=== PATIENT | male | born 1950 | race Caucasian/White ===

== ENCOUNTER 2019-04-27 13:04 | Outpatient (CLI) | payer MEDICARE, SELFPAY ==
[2019-04-27 13:55] LABS: Albumin Level 2.6 g/dL (3.5-5.1); Blood Urea Nitrogen 50 mg/dL (9-20); Carbon Dioxide 18 mmol/L (22-30); Chloride 110 mmol/L (98-107); Estimated Glomerular Filt Rate 17; Glucose 84 mg/dL (75-110); Phosphorus 5.2 mg/dL (2.5-4.5); Potassium 4.9 mmol/L (3.4-5.0); Sodium 139 mmol/L (137-145)
[2019-04-27 14:06] LABS: Parathyroid Intact 180.4 pg/mL (7.5-53.5)
[2019-04-27 14:34] LABS: Vitamin D 25 Hydroxy < 12.8 ng/mL
[2019-04-27 15:43] LABS: Total Protein Urine Random 14 mg/dL
[2019-04-27 15:45] LABS: Creatinine Urine 90.5 mg/dL
== END 2019-04-27 13:05 | disposition home or self-care (01) ==
LOC: ANHLAB 13:08
PROVIDERS: PCP Internal Medicine Nephrology; Visit Provider Internal Medicine Nephrology
DX: N18.4 Chronic kidney disease, stage 4 (severe) (principal); E11.29 Type 2 diabetes mellitus with other diabetic kidney complication; K74.69 Other cirrhosis of liver
CPT/HCPCS: 36415; 80069; 82306; 82570; 83970; 84156

== ENCOUNTER 2019-07-12 09:28 | Outpatient (RCR) | payer MEDICARE, SELFPAY ==
[2019-05-26 10:28] LABS: Mean Platelet Volume 8.7 fl (7.4-10.4); Platelet Count Result 136 k/mm3 (150-375)
[2019-05-26 10:39] LABS: INR 1.1; Prothrombin Time 14.3 Seconds (11.1-14.7)
[2019-07-05 09:12] LABS: Mean Platelet Volume 8.8 fl (7.4-10.4); Platelet Count Result 151 k/mm3 (150-375)
[2019-07-05 09:22] LABS: INR 1.1
--- NOTE | ~2019-07-12 | US_ITS ---
EXAMINATION: US paracentesis abd w/image DATE: 07/05/2019 10:19 INDICATION: Ascites. TECHNIQUE: The procedure and its risks and benefits were discussed with the patient. Potential risks discussed included bleeding and infection. The skin was prepped and draped in sterile fashion. 1% lid ocaine was used for local anesthesia. Under ultrasound guidance, a 5 Fr catheter with trochar was adv anced into the ascites in the left lower quadrant. Fluid was aspirated into vacuum bottles. The laura ter was removed, and a dressing was applied. There were no immediate complications. FINDINGS: Ultrasound images demonstrate ascites and the catheter within the fluid. IMPRESSION: 1. Successful ultrasound-guided paracentesis yielding 5000 mL of cloudy brownish fluid. Reviewed, dictated and finalized at location A. IMPRESSION: 1. Successful ultrasound-guided paracentesis yielding 5000 mL of cloudy browni sh fluid.
--- NOTE | ~2019-07-12 | US_ITS ---
EXAMINATION: US paracentesis abd w/image DATE: 04/14/2019 14:20 INDICATION: Ascites. TECHNIQUE: The procedure and its risks, benefits, and alternatives were discussed with the patient. P otential risks discussed included bleeding and infection. The skin was prepped and draped in sterile fashion. 1% lidocaine was used for local anesthesia. Under ultrasound guidance, a 5 Fr catheter with trochar was advanced into the ascites in the left lower quadrant. Fluid was aspirated. The catheter w as removed, and a dressing was applied. There were no immediate complications. FINDINGS: Ultrasound images demonstrate ascites and the catheter within the fluid. IMPRESSION: 1. Successful ultrasound-guided paracentesis yielding 5000 mL of robb-colored fluid. Reviewed, dictated and finalized at location A. ETING AUTOMATION ANALYST
--- NOTE | ~2019-07-12 | US_ITS ---
EXAMINATION: US paracentesis abd w/image DATE: 07/12/2019 10:32 INDICATION: Ascites. TECHNIQUE: The procedure and its risks, benefits, and alternatives were discussed with the patient. P otential risks discussed included bleeding and infection. The skin was prepped and draped in sterile fashion. 1% lidocaine was used for local anesthesia. Under ultrasound guidance, a 5 Fr catheter with trochar was advanced into the ascites in the left lower quadrant. Fluid was aspirated. The catheter w as removed, and a dressing was applied. There were no immediate complications. FINDINGS: Ultrasound images demonstrate ascites and the catheter within the fluid. IMPRESSION: 1. Successful ultrasound-guided paracentesis yielding 5000 mL of cloudy, brown fluid. Reviewed, dictated and finalized at location A.
--- NOTE | ~2019-07-12 | US_ITS ---
EXAMINATION: US paracentesis abd w/image DATE: 04/22/2019 10:43 INDICATION: Ascites. TECHNIQUE: The skin was prepped and draped in sterile fashion. 1% lidocaine was used for local anesth esia. Under ultrasound guidance, a 5 Fr catheter with trochar was advanced into the ascites in the le ft lower quadrant. Fluid was aspirated. The catheter was removed, and a dressing was applied. There w ere no immediate complications. FINDINGS: Ultrasound images demonstrate ascites and the catheter within the fluid. IMPRESSION: 1. Successful ultrasound-guided paracentesis yielding 5000 mL of clear, yellow fluid. Reviewed, dictated and finalized at location A. ST'S MANAGER
--- NOTE | ~2019-07-12 | US_ITS ---
EXAMINATION: US paracentesis abd w/image DATE: 04/30/2019 11:18 INDICATION: Cirrhosis of the liver and ascites. TECHNIQUE: The procedure and its risks and benefits were discussed with the patient. Potential risks discussed included bleeding and infection. The skin was prepped and draped in sterile fashion. 1% lid ocaine was used for local anesthesia. Under ultrasound guidance, a 5 Fr catheter with trochar was adv anced into the ascites in the left lower quadrant. Fluid was aspirated into vacuum bottles. The laura ter was removed, and a dressing was applied. There were no immediate complications. FINDINGS: Ultrasound images demonstrate ascites and the catheter within the fluid. IMPRESSION: 1. Successful ultrasound-guided paracentesis yielding 5000 mL of clear yellowish fluid. Reviewed, dictated and finalized at location A. TY DIRECTOR WELFARE IMPRESSION: 1. Successful ultrasound-guided paracentesis yielding 5000 mL of clear yellowi sh fluid.
--- NOTE | ~2019-07-12 | US_ITS ---
EXAMINATION: US paracentesis abd w/image DATE: 05/14/2019 13:40 INDICATION: Ascites. TECHNIQUE: The procedure and its risks, benefits, and alternatives were discussed with the patient. P otential risks discussed included bleeding and infection. The skin was prepped and draped in sterile fashion. 1% lidocaine was used for local anesthesia. Under ultrasound guidance, a 5 Fr catheter with trochar was advanced into the ascites in the left lower quadrant. Fluid was aspirated. The catheter w as removed, and a dressing was applied. There were no immediate complications. FINDINGS: Ultrasound images demonstrate ascites and the catheter within the fluid. IMPRESSION: 1. Successful ultrasound-guided paracentesis yielding 5000 mL of clear, robb-colored fluid. Reviewed, dictated and finalized at location A. ILLMENT ASSOCIATE IMPRESSION: 1. Successful ultrasound-guided paracentesis yielding 5000 mL of clear, robb- colored fluid.
--- NOTE | ~2019-07-12 | US_ITS ---
EXAMINATION: US paracentesis abd w/image DATE: 05/26/2019 11:39 INDICATION: Ascites. TECHNIQUE: The procedure and its risks, benefits, and alternatives were discussed with the patient. P otential risks discussed included bleeding and infection. The skin was prepped and draped in sterile fashion. 1% lidocaine was used for local anesthesia. Under ultrasound guidance, a 5 Fr catheter with trochar was advanced into the ascites in the left lower quadrant. Fluid was aspirated. The catheter w as removed, and a dressing was applied. There were no immediate complications. FINDINGS: Ultrasound images demonstrate ascites and the catheter within the fluid. IMPRESSION: 1. Successful ultrasound-guided paracentesis yielding 5000 mL of clear, robb-colored fluid. Reviewed, dictated and finalized at location A. IMPRESSION: 1. Successful ultrasound-guided paracentesis yielding 5000 mL of clear, robb- colored fluid.
--- NOTE | ~2019-07-12 | US_ITS ---
EXAMINATION: US paracentesis abd w/image DATE: 06/14/2019 10:43 INDICATION: Ascites. TECHNIQUE: The procedure and its risks and benefits were discussed with the patient. Potential risks discussed included bleeding and infection. The skin was prepped and draped in sterile fashion. 1% lid ocaine was used for local anesthesia. Under ultrasound guidance, a 5 Fr catheter with trochar was adv anced into the ascites in the left lower quadrant. Fluid was aspirated into vacuum bottles. The laura ter was removed, and a dressing was applied. There were no immediate complications. FINDINGS: Ultrasound images demonstrate ascites and the catheter within the fluid. IMPRESSION: 1. Successful ultrasound-guided paracentesis yielding 5000 mL of reddish-brown fluid. Reviewed, dictated and finalized at location A.
--- NOTE | ~2019-07-12 | US_ITS ---
EXAMINATION: US paracentesis abd w/image DATE: 06/07/2019 10:50 INDICATION: Ascites. TECHNIQUE: The procedure and its risks and benefits were discussed with the patient. Potential risks discussed included bleeding and infection. The skin was prepped and draped in sterile fashion. 1% lid ocaine was used for local anesthesia. Under ultrasound guidance, a 5 Fr catheter with trochar was adv anced into the ascites in the left lower quadrant. Fluid was aspirated into vacuum bottles. The laura ter was removed, and a dressing was applied. There were no immediate complications. FINDINGS: Ultrasound images demonstrate ascites and the catheter within the fluid. IMPRESSION: 1. Successful ultrasound-guided paracentesis yielding 4650 mL of cloudy pinkish fluid. Reviewed, dictated and finalized at location A. IMPRESSION: 1. Successful ultrasound-guided paracentesis yielding 4650 mL of cloudy pinkis h fluid.
--- NOTE | ~2019-07-12 | US_ITS ---
EXAMINATION: US paracentesis abd w/image DATE: 05/05/2019 15:00 INDICATION: Ascites. TECHNIQUE: The procedure and its risks and benefits were discussed with the patient. Potential risks discussed included bleeding and infection. The skin was prepped and draped in sterile fashion. 1% lid ocaine was used for local anesthesia. Under ultrasound guidance, a 5 Fr catheter with trochar was adv anced into the ascites in the right lower quadrant. Fluid was aspirated into vacuum bottles. The cath eter was removed, and a dressing was applied. There were no immediate complications. FINDINGS: Ultrasound images demonstrate ascites and the catheter within the fluid. IMPRESSION: 1. Successful ultrasound-guided paracentesis yielding 2000 mL of cloudy reddish-brown fluid. Reviewed, dictated and finalized at location A. RUMENTATION AND CONTROLS TECHNICIAN IMPRESSION: 1. Successful ultrasound-guided paracentesis yielding 2000 mL of cloudy reddis h-brown fluid.
--- NOTE | ~2019-07-12 | US_ITS ---
EXAMINATION: US paracentesis abd w/image DATE: 05/31/2019 10:48 INDICATION: Ascites. TECHNIQUE: The procedure and its risks and benefits were discussed with the patient. Potential risks discussed included bleeding and infection. The skin was prepped and draped in sterile fashion. 1% lid ocaine was used for local anesthesia. Under ultrasound guidance, a 5 Fr catheter with trochar was adv anced into the ascites in the left lower quadrant. Fluid was aspirated into vacuum bottles. The laura ter was removed, and a dressing was applied. There were no immediate complications. FINDINGS: Ultrasound images demonstrate ascites and the catheter within the fluid. IMPRESSION: 1. Successful ultrasound-guided paracentesis yielding 5000 mL of cloudy brownish colored fluid. Reviewed, dictated and finalized at location A. IMPRESSION: 1. Successful ultrasound-guided paracentesis yielding 5000 mL of cloudy browni sh colored fluid.
--- NOTE | ~2019-07-12 | US_ITS ---
EXAMINATION: US paracentesis abd w/image DATE: 06/28/2019 09:34 INDICATION: Ascites. TECHNIQUE: The procedure and its risks, benefits, and alternatives were discussed with the patient. P otential risks discussed included bleeding and infection. The skin was prepped and draped in sterile fashion. 1% lidocaine was used for local anesthesia. Under ultrasound guidance, a 5 Fr catheter with trochar was advanced into the ascites in the left lower quadrant. Fluid was aspirated. The catheter w as removed, and a dressing was applied. There were no immediate complications. FINDINGS: Ultrasound images demonstrate ascites and the catheter within the fluid. IMPRESSION: 1. Successful ultrasound-guided paracentesis yielding 5000 mL of robb-colored fluid. Reviewed, dictated and finalized at location A.
--- NOTE | ~2019-07-12 | US_ITS ---
EXAMINATION: US paracentesis abd w/image DATE: 06/21/2019 10:00 INDICATION: Ascites. TECHNIQUE: The procedure and its risks, benefits, and alternatives were discussed with the patient. P otential risks discussed included bleeding and infection. The skin was prepped and draped in sterile fashion. 1% lidocaine was used for local anesthesia. Under ultrasound guidance, a 5 Fr catheter with trochar was advanced into the ascites in the left lower quadrant. Fluid was aspirated. The catheter w as removed, and a dressing was applied. There were no immediate complications. FINDINGS: Ultrasound images demonstrate ascites and the catheter within the fluid. IMPRESSION: 1. Successful ultrasound-guided paracentesis yielding 5000 mL of red-brown, cloudy fluid. Reviewed, dictated and finalized at location A. IMPRESSION: 1. Successful ultrasound-guided paracentesis yielding 5000 mL of red-brown, cl oudy fluid.
== END 2019-07-13 23:59 | disposition home or self-care (01) ==
LOC: ANHIMG 09:28
PROVIDERS: PCP Internal Medicine Nephrology; Visit Provider Internal Medicine Nephrology
DX: R18.8 Other ascites (principal); K74.69 Other cirrhosis of liver
CPT/HCPCS: 36415; 49083; 85049; 85610

== ENCOUNTER 2019-09-05 19:29 | Inpatient (IN) | payer MEDICARE, SELFPAY ==
--- NOTE | ~2019-09-05 | XR_ITS ---
EXAMINATION: XR chest 1V portable DATE: 09/05/2019 20:01 INDICATION: Weakness. Pulmonary edema. TECHNIQUE: frontal view of the chest was obtained. COMPARISON: Chest radiograph dated 10/02/2018 FINDINGS: Chronic elevation of the right hemidiaphragm. Persistent opacities in the right lower lung zone. Left lung remains clear. No pulmonary edema, pneumothorax or pleural effusion. The cardiomediastinal silh ouette is normal. Median Median sternotomy wires and mediastinal surgical clips are seen, likely from prior coronary artery bypass grafting. There also appears to be a closure device projecting over th e region of the left atrial appendage. Correlate with surgical history. IMPRESSION: 1. Chronic elevation of the right hemidiaphragm with persistent opacities in the right lower lung zon e which could represent atelectasis or pneumonia. Reviewed, dictated and finalized at location A. IMPRESSION: 1. Chronic elevation of the right hemidiaphragm with persistent opacities in th e right lower lung zone which could represent atelectasis or pneumonia.
--- NOTE | ~2019-09-05 | US_ITS ---
EXAMINATION: US paracentesis abd w/image DATE: 09/06/2019 11:52 INDICATION: Ascites. TECHNIQUE: The procedure and its risks and benefits were discussed with the patient. Potential risks discussed included bleeding and infection. The skin was prepped and draped in sterile fashion. 1% lid ocaine was used for local anesthesia. Under ultrasound guidance, a 5 Fr catheter with trochar was adv anced into the ascites in the right lower quadrant. Fluid was aspirated into vacuum bottles. The cath eter was removed, and a dressing was applied. There were no immediate complications. FINDINGS: Ultrasound images demonstrate ascites and the catheter within the fluid. IMPRESSION: 1. Successful ultrasound-guided paracentesis yielding 5000 mL of cloudy brownish-fluid fluid. Reviewed, dictated and finalized at location A. IMPRESSION: 1. Successful ultrasound-guided paracentesis yielding 5000 mL of cloudy browni sh-fluid fluid.
--- NOTE | ~2019-09-05 | US_ITS ---
EXAMINATION: US paracentesis abd w/image DATE: 09/13/2019 12:34 INDICATION: Ascites. TECHNIQUE: The procedure and its risks and benefits were discussed with the patient. Potential risks discussed included bleeding and infection. The skin was prepped and draped in sterile fashion. 1% lid ocaine was used for local anesthesia. Under ultrasound guidance, a 5 Fr catheter with trochar was adv anced into the ascites in the right lower quadrant. Fluid was aspirated into vacuum bottles. The cath eter was removed, and a dressing was applied. There were no immediate complications. FINDINGS: Ultrasound images demonstrate ascites and the catheter within the fluid. IMPRESSION: 1. Successful ultrasound-guided paracentesis yielding 1000 mL of cloudy yellow fluid. Reviewed, dictated and finalized at location A.
--- NOTE | ~2019-09-05 | XR_ITS ---
XR abdomen/kub 1V 09/13/2019 15:02 Indication: Left UPJ stone Procedure: KUB Comparison: No prior studies for comparison. Findings: Bowel gas pattern is nonobstructive. There is a left internal ureteral stent in expected po sition. There are extensive vascular calcifications of the abdomen and pelvis. No definite renal/uret eral stones are identified. Moderate lumbar spondylosis. Impression: 1: No acute abdominal abnormality. Reviewed, dictated and finalized at location A. Impression: 1: No acute abdominal abnormality.
--- NOTE | ~2019-09-05 | CT_ITS ---
EXAMINATION: CT abdomen pelvis wo con DATE: 09/05/2019 20:34 INDICATION: Left lower abdominal pain TECHNIQUE: Computed tomography (CT) of the abdomen and pelvis was performed with 100 mL Omnipaque-350 intravenous contrast. Automated exposure control and iterative reconstruction technique were employe d. The dose-length product was 1136.79 mGy-cm. COMPARISON: 07/28/2016 FINDINGS: Bibasilar atelectasis, right greater than left. Cardiomegaly. Atherosclerotic coronary artery calcifi cations with change of prior median sternotomy and likely coronary artery bypass grafting. There is a lso suggestive coronary artery stenting. There is a closure device at the left atrial appendage. Decr eased attenuation of the blood pool relative to the myocardium consistent with anemia. No pericardial effusion. Trace bilateral pleural effusions. Small cirrhotic liver with nodular surface contour. There are a few fluid attenuation hepatic cysts t he largest measuring 2.2 cm. Several small calcified gallstones in the dependent aspect of the normal -appearing gallbladder. Multiple splenic calcified lesions consistent with old granulomatous disease. Pancreas and bilateral adrenal glands are normal. Mild bilateral renal atrophy. 2-3 mm stone in the proximal left ureter resulting in mild left hydronephrosis. Multiple additional calcifications at the bilateral renal navin which appear predominantly atherosclerotic. No right-sided hydronephrosis. Larg e amount of ascites scattered throughout the abdomen and pelvis. No bowel obstruction or abnormal bow el wall thickening. There are couple diverticula along the distal descending colon without adjacent i nflammatory change to suggest diverticulitis. Bladder is normal. Bilateral fat-containing inguinal he rnias. Penile prosthesis with reservoir in the anterior left pelvis. There is extensive calcified ath erosclerosis of the aorta and many of the other arteries. No significant interval change in mild like ly reactive upper abdominal] peroneal lymphadenopathy and bilateral inguinal lymphadenopathy. Severe lumbar spondylosis. IMPRESSION: 1. Obstructing 2-3 mm proximal left ureteral stone with mild left hydronephrosis. 2. Large amount of ascites in the abdomen and pelvis likely related to cirrhosis. 3. Cardiomegaly with coronary artery disease and postoperative changes of likely prior coronary arter y bypass grafting and left atrial appendage closure device. 4. Cholelithiasis. Reviewed, dictated and finalized at location A. IMPRESSION: 1. Obstructing 2-3 mm proximal left ureteral stone with mild left hydronephrosi s. 2. Large amount of ascites in the abdomen and pelvis likely related to cirrhosi s. 3. Cardiomegaly with coronary artery disease and postoperative changes of likel y prior coronary artery bypass grafting and left atrial appendage closure devic e. 4. Cholelithiasis.
--- NOTE | ~2019-09-05 | XR_ITS ---
EXAMINATION: XR retrograde pyelo w/stent LT INDICATION: Left internal ureteral stent placement and retrograde pyelogram. TECHNIQUE: 43 intraoperative fluoroscopic images are submitted for review. Total fluoroscopic time is 19.5 seconds. The DAP is [id number] mGym2. COMPARISON: None available FINDINGS: Fluoroscopic images demonstrate retrograde opacification of a normal caliber left ureter wi th mild hydronephrosis. The internal ureteral stent is placed in expected position. IMPRESSION: 1. Left internal ureteral stent in expected position. Please refer to procedure note for full details . Reviewed, dictated and finalized at location A. IMPRESSION: 1. Left internal ureteral stent in expected position. Please refer to procedure note for full details.
--- NOTE | ~2019-09-05 | US_ITS ---
EXAMINATION: US renal BI EXAM DATE: 09/06/2019 11:48 INDICATION: Acute on chronic renal failure. Left ureteral stone seen on 09/04 CT. TECHNIQUE: Multiple grayscale and Doppler images of the kidneys were obtained (by a technologist who performed the scan) and subsequently reviewed. Correlation is made to CT from yesterday. FINDINGS: There is bilateral renal cortical thinning. Large amount of ascites. Right kidney: There is normal contour and increased echogenicity. It measures 11.0 x 5.3 x 5.3 centi meters. There are no focal renal lesions identified. There is no hydronephrosis. Left kidney: There is normal contour and increased echogenicity. It measures 10.6 x 5.4 x 5.5 centim eters. There are no focal renal lesions identified. There is no hydronephrosis. Patient has Arredondo catheter, collapsed bladder poorly visualized. IMPRESSION: 1. Bilateral renal cortical thinning and increased cortical echogenicity, medical renal disease. 2. Large amount of ascites. 3. No hydronephrosis. Reviewed, dictated and finalized at location B. IMPRESSION: 1. Bilateral renal cortical thinning and increased cortical echogenicity, medi sang renal disease. 2. Large amount of ascites. 3. No hydronephrosis.
--- NOTE | ~2019-09-05 | US_ITS ---
EXAMINATION: US venous doppler [facility] DATE: 09/06/2019 18:42 INDICATION: Bilateral lower limb pain TECHNIQUE: Plunkett scale images without and with compression and Doppler images of the bilateral lower e xtremity veins were obtained. COMPARISON: 10/08/2018 FINDINGS: The right common femoral vein, profunda femoral vein, femoral vein, popliteal vein, peroneal trunk, p osterior tibial veins, and greater saphenous vein are patent. The left common femoral vein, profunda femoral vein, femoral vein, popliteal vein, peroneal trunk, po sterior tibial veins, and greater saphenous vein are patent. IMPRESSION: 1. Patent bilateral lower extremity veins. No evidence of deep venous thrombosis. Reviewed, dictated and finalized at location A. IMPRESSION: 1. Patent bilateral lower extremity veins. No evidence of deep venous thrombosi s.
[2019-09-05 19:30] VITALS: BP 145/53; PULSE 66; RESP 20; TEMP 36.3; O2SAT 100
--- NOTE | 2019-09-05 19:48 | ED.ABDPAIN ---
HPI - Abdominal Pain General Chief Complaint: Abdominal Pain Stated Complaint: abd pain and swelling Time Seen by Provider: 09/05/19 19:41 Source: patient Mode of arrival: ambulatory Limitations: no limitations History of Present Illness HPI narrative: This patient is a 69 year old male with history of chronic kidney disease, nonalcoholic cirrhosis, and hypertension who presents for evaluation of abdominal pain. PAtient states he developed mid left abdominal pain this morning and his pain has been constant. HE has associated nausea and dry heaving but he denies diarrhea. He had normal bowel movement today. His family states that his abdomen is distended and his legs are more swollen than usual. He is scheduled for weekly paracentesis which is scheduled for tomorrow. HE states this pain is not normal for him so he could not wait until tomorrow. He denies any urinary symptoms. MD elicited complaint: abdominal pain Related Data Home Medications Medication Instructions Recorded Confirmed albuterol sulfate 90 mcg/actuation 1 puff INHALATION Q4H PRN 05/24/19 09/06/19 aerosol inhaler amlodipine 5 mg tablet 5 mg PO DAILY 05/24/19 09/06/19 aspirin 81 mg chewable tablet 81 mg PO DAILY 05/24/19 09/06/19 hydralazine 50 mg tablet 50 mg PO TID 05/24/19 09/06/19 ipratropium 20 mcg-albuterol 100 1 puff INHALATION Q4H PRN 05/24/19 09/06/19 mcg/actuation mist for inhalation simvastatin 20 mg tablet 20 mg PO HS 05/24/19 09/06/19 bumetanide 2 mg PO HS 09/06/19 09/06/19 calcitriol 0.25 mcg PO DAILY 09/06/19 09/06/19 clopidogrel [Plavix] 75 mg PO HS 09/06/19 09/06/19 spironolactone 25 mg PO DAILY 09/06/19 09/06/19 Allergies Allergy/AdvReac Type Severity Reaction Status Date / Time codeine Allergy Unknown RASH/BLISTE Verified 09/05/19 19:33 RS Review of Systems Review of Systems: All systems reviewed & are unremarkable except as noted in HPI and below Constitutional: Constitutional: Denies chills and Denies fever(s) ENT: Denies sore throat Respiratory: Respiratory: Denies cough and Denies dyspnea Gastrointestinal: Gastrointestinal: Reports abdominal pain, Denies constipation, Denies diarrhea, Reports nausea and Reports vomiting Hematologic/Lymphatic: Comments: leg edema PMFSH Past Medical History Medical History Anemia Chronic diastolic (congestive) heart failure CKD (chronic kidney disease) stage 4, GFR 15-29 ml/min Coronary artery 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 Edema of both legs DIMITRIS (obstructive sleep apnea) Other ascites PAF (paroxysmal atrial fibrillation) Presence of Watchman left atrial appendage closure device Pulmonary hypertension Surgical History Surgical History History of penile implant History of tonsillectomy Family History Family History (Updated 09/06/19 @ 01:25 by Jenniffer Arora RN) Mother Diabetes mellitus Father Family history of malignant neoplasm Family history of lung cancer Hypertension Sibling Diabetes mellitus Social History Social History Smoking packs per day: 1 Smoking cigarettes per day: 20.0 Years smoked: 10 Smoking pack-years: 10.00 Smoking status: Former smoker Smoking end date: 03/17/75 Alcohol intake: never Substance use: never Spiritual care concerns: No Exam Const: General: alert and ill appearing Orientation/consciousness: patient oriented x3 HENMT: Head: normocephalic and atraumatic Face and sinus: face symmetric Eyes: EOM: EOMs intact bilaterally Chest: Chest palpation & inspection: normal inspection of the chest Resp: Effort & Inspection: normal respiratory effort Auscultation: clear to auscultation bilaterally Cardio: Rate: regular rate Rhythm: regular rhythm Heart sounds: no murmurs GI
[2019-09-05 19:50] LABS: Basophils Percent Auto 0.3 % (0.2-1.2); Hematocrit 24.8 % (42.0-52.0); Immature Granulocyte Absolute 0.08 K/mm3 (0.00-0.031); Lymphocytes Absolute Auto 0.18 K/mm3 (0.9-3.2); Lymphocytes Percent Auto 2.3 % (18.3-44.2); Mean Corpuscular HGB Conc 32.3 g/dl (32-36); Mean Corpuscular Hemoglobin 29.4 pg (26-34); Mean Corpuscular Volume 91.2 fl (80-100); Mean Platelet Volume 8.7 fl (7.4-10.4); Monocytes Absolute Auto 0.2 K/mm3 (0.1-0.6); Monocytes Percent Auto 2.1 % (2.6-8.5); Neutrophils Absolute Auto 7.5 K/mm3 (1.3-6.7); Neutrophils Percent Auto 94.3 % (45.5-73.1); Platelet Count Result 136 k/mm3 (150-375); Red Blood Count 2.72 M/mm3 (4.6-6.20); Red Cell Distribution Width 14.6 % (11.5-14.5)
[2019-09-05 20:00] VITALS: BP 130/80; PULSE 67; RESP 18; O2SAT 97
[2019-09-05 20:01] LABS: Alanine Aminotransferase 11 U/L (4-50); Albumin Level 2.4 g/dL (3.5-5.1); Alkaline Phosphatase 107 U/L (38-126); Aspartate Amino Transferase 21 U/L (17-59); Bilirubin,Total 0.3 mg/dL (0.2-1.3); Blood Urea Nitrogen 62 mg/dL (9-20); Calcium 7.7 mg/dL (8.4-10.2); Carbon Dioxide 14 mmol/L (22-30); Chloride 110 mmol/L (98-107); Estimated CRCL calculation 14 ml/min; Estimated Glomerular Filt Rate 10; Glucose 212 mg/dL (75-110); Lipase 38 U/L (23-300); Magnesium 2.8 mg/dL (1.6-2.3); Potassium 5.9 mmol/L (3.4-5.0); Sodium 133 mmol/L (137-145)
[2019-09-05] MEDS: DEXTROSE 50% 25 GM/50 ML SYRINGE IV PUSH (20:16)
[2019-09-05] MEDS: SODIUM BICARBONATE 8.4% 50 MEQ/50 ML VIAL IV PUSH (20:16)
[2019-09-05] MEDS: INSULIN HUMAN REGULAR (*BKC) 100 UNITS/ML 10 UNITS IV PUSH (20:17)
[2019-09-05] MEDS: ONDANSETRON INJ 4 MG/2 ML VIAL IV PUSH (20:17)
[2019-09-05] MEDS: HYDROMORPHONE HCL 1 MG/ML INJ 0.5 MG IV PUSH (20:17)
--- NOTE | 2019-09-05 20:17 | PC.NURSE ---
10 units given IVP, MAR did not take last scan, unable to edit. Given with Beau Red RN.
--- NOTE | 2019-09-05 20:22 | ECG_ITS ---
Measurements Intervals [place] Rate: 58 P: ME: 0 QRS: -68 QRSD: 113 T: 119 QT: 441 QTc: 435 Interpretive Statements ATRIAL FIBRILLATION WITH SLOW VENTRICULAR RESPONSE INCOMPLETE LEFT BUNDLE BRANCH BLOCK LOW QRS VOLTAGE IN PRECORDIAL LEADS BORDERLINE R WAVE PROGRESSION, ANTERIOR LEADS BORDERLINE ST-T WAVE ABNORMALITY- HIGH LATERAL LEADS BASELINE ARTIFACT- I, III, AVR, AVL ABNORMAL ECG Electronically Signed On 09-06-2019 6:43:03 CDT by Peter Pollack D.O.
[2019-09-05] MEDS: CALCIUM GLUC 1,000 MG/NS 50 ML 1,000 MG/50 ML BAG 100 MG IVPB (20:50)
[2019-09-05 21:04] LABS: INR 1.2; Prothrombin Time 14.8 Seconds (11.1-14.7)
[2019-09-05 21:24] VITALS: BP 119/46; PULSE 64; RESP 18; O2SAT 95
[2019-09-05 21:26] LABS: Ammonia < 9 umol/L (9-30); Lactic Acid Reflex 1.2 mmol/L (0.7-2.1)
[2019-09-05 21:47] LABS: Blood Urea Nitrogen 67 mg/dL (9-20); Calcium 7.6 mg/dL (8.4-10.2); Carbon Dioxide 16 mmol/L (22-30); Chloride 110 mmol/L (98-107); Estimated CRCL calculation 14 ml/min; Estimated Glomerular Filt Rate 11; Glucose 232 mg/dL (75-110); Potassium 5.5 mmol/L (3.4-5.0); Sodium 133 mmol/L (137-145)
[2019-09-05 21:51] LABS: Glucose Point of Care 146 (65-105)
--- NOTE | 2019-09-05 22:01 | PC.NURSE ---
Patient notified for the 3rd time we need a urine sample. Refusing cath. Will try.
--- NOTE | 2019-09-05 22:24 | PC.NURSE ---
Patient asked again for urine, states he cannot go currently and still refusing cath.
[2019-09-05] MEDS: SODIUM CHLORIDE 0.9% IV 1,000 ML 999 ML IV CONT (22:42)
[2019-09-05] MEDS: HYDROMORPHONE HCL 1 MG/ML INJ IV PUSH (22:42)
[2019-09-05] MEDS: SODIUM POLYSTYRENE SULFONONATE 15 GM/60 ML BTL PO (22:42)
[2019-09-05] MEDS: LIDOCAINE HCL 2% GEL UROJET 10 ML PKG (22:52)
[2019-09-05 23:09] VITALS: BP 137/67; PULSE 55; RESP 18; O2SAT 95
[2019-09-05 23:16] VITALS: BP 133/57; PULSE 68; RESP 20; TEMP 36.6; O2SAT 95; BMI 30.7
[2019-09-05] MEDS: PROMETHAZINE HCL 25 MG/ML AMPUL 12.5 MG IV PUSH (23:22)
[2019-09-05 23:24] LABS: Add Urine Microscopic? YES; Appearance Urine Clear (Clear); Bacteria Urine 1+ /hpf; Bilirubin Urine Negative (Negative); Blood Urine 3+ (Negative); Color Urine Yellow (Yellow); Glucose Urine UA 1+ mg/dL (Negative); Ketones Urine Negative (Negative); Leukocyte Esterase Ur Negative LEU/UL (Negative); Nitrate Urine Negative (Negative); Protein Urine Negative (Negative); RBC Urine >75 /hpf (0-2); Specific Grav Ur 1.013 (1.001-1.035); Urobilinogen Urine Negative mg/dL (<2.0); WBC Urine 0-3 /hpf
[2019-09-05 23:25] LABS: Potassium Urine Random 53.4 meq/L; Sodium Urine Random 11 meq/L
[2019-09-05 23:27] VITALS: PULSE 74
[2019-09-05 23:48] LABS: Glucose Point of Care 80 (65-105)
[2019-09-06] VITALS (28 sets, daily range): BP systolic 119–167; BP diastolic 41–74; PULSE 53–86; RESP 12–20; TEMP 35.5–36.7; O2SAT 93–100; BMI 28.4
--- NOTE | 2019-09-06 | PC.NURSE ---
This patient, Naldo Lowry, was admitted to IMU Room 202-01. Patient/family oriented to hospital policies and general routines including ID bracelet, bed and alarms, visiting hours, pain management, procedures, bathroom and other care routines, personal items, smoking policy, room service/diet, and visiting hours. Valuables list has been completed. Information on how to activate the Rapid Response Team has been discussed. Patient/Family are encouraged to report perceived risks to care and to ask questions if they do not understand what they are told or what they should do.
--- NOTE | 2019-09-06 00:05 | PM.IMHP ---
H&P: HPI History of Present Illness Chief complaint: hyperkalemia, acute on chronic renal failure, Narrative: This is a pleasant 69 year old male with known history of CKD, nonalcoholic cirrhosis, and chronic diastolic heart failure who presented to the hospital today complaining of left sided abdominal pain that started early in the morning. His abdominal pain is associated with nausea and vomiting. He reports decreased urine output. He denies any NSAID use or exposure to contrast. The patient is known to get weekly paracentesis for his chronic abdominal ascites which is scheduled for tomorrow. He denies any gross hematuria or dysuria. The patient was evaluated in the ER tonight and found to be in acute renal failure. CT abd/pelvis demonstrated obstructing 2-3 mm proximal left ureteral stone with mild left hydronephrosis. Urology has been consulted by ER provider. 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 Edema of both legs DIMITRIS (obstructive sleep apnea) Other ascites PAF (paroxysmal atrial fibrillation) Presence of Watchman left atrial appendage closure device Pulmonary hypertension Surgical History Surgical History History of penile implant History of tonsillectomy Family History Family History Mother Diabetes mellitus Father Family history of malignant neoplasm Family history of lung cancer Hypertension Sibling Diabetes mellitus Social History Social History Smoking packs per day: 1 Smoking cigarettes per day: 20.0 Years smoked: 10 Smoking pack-years: 10.00 Smoking status: Former smoker Smoking end date: 03/17/75 Alcohol intake: never Substance use: never Spiritual care concerns: No Meds Home Medications and Allergies Home Medications Medication Instructions Recorded Confirmed Type albuterol sulfate 90 mcg/actuation 1 puff INHALATION Q4H PRN 05/24/19 09/06/19 History aerosol inhaler amlodipine 5 mg tablet 5 mg PO DAILY 05/24/19 09/06/19 History aspirin 81 mg chewable tablet 81 mg PO DAILY 05/24/19 09/06/19 History hydralazine 50 mg tablet 50 mg PO TID 05/24/19 09/06/19 History ipratropium 20 mcg-albuterol 100 1 puff INHALATION Q4H PRN 05/24/19 09/06/19 History mcg/actuation mist for inhalation simvastatin 20 mg tablet 20 mg PO HS 05/24/19 09/06/19 History bumetanide 2 mg PO HS 09/06/19 09/06/19 History calcitriol 0.25 mcg PO DAILY 09/06/19 09/06/19 History clopidogrel [Plavix] 75 mg PO HS 09/06/19 09/06/19 History spironolactone 25 mg PO DAILY 09/06/19 09/06/19 History Allergies Allergy/AdvReac Type Severity Reaction Status Date / Time codeine Allergy Unknown RASH/BLISTE Verified 09/05/19 19:33 RS Vital Signs Vital Signs - 24 hr 09/05/19 19:30 09/05/19 20:00 09/05/19 21:24 Temperature 36.3 C L Pulse Rate 66 67 64 Respiratory Rate 20 18 18 Blood Pressure 145/53 H 130/80 119/46 L Pulse Oximetry 100 97 95 09/05/19 23:09 Temperature Pulse Rate 55 L Respiratory Rate 18 Blood Pressure 137/67 Pulse Oximetry 95 Exam Const: General: cooperative, no acute distress, alert, awake and ill appearing chronically Nutritional Appearance: obese Orientation/consciousness: patient oriented x3 HENMT: Head: normal to inspection General nose exam: Normal external nose present Face and sinus: normal facial exam Mouth: Yes Normal oral and palatal mucosa present and Yes oropharynx normal Eyes: Pupils: Equal, round and rachna
[2019-09-06] MEDS: SODIUM CHLORIDE 0.9% IV 1,000 ML 70 ML IV CONT (00:19)
[2019-09-06 04:06] LABS: Glucose Point of Care 97 (65-105)
[2019-09-06 04:52] LABS: Basophils Percent Auto 0.1 % (0.2-1.2); Hematocrit 24.5 % (42.0-52.0); Hemoglobin 7.9 g/dL (14.0-18.0); Immature Granulocyte Absolute 0.08 K/mm3 (0.00-0.031); Lymphocytes Absolute Auto 0.28 K/mm3 (0.9-3.2); Lymphocytes Percent Auto 3.4 % (18.3-44.2); Mean Corpuscular HGB Conc 32.2 g/dl (32-36); Mean Corpuscular Hemoglobin 29.2 pg (26-34); Mean Corpuscular Volume 90.4 fl (80-100); Mean Platelet Volume 8.9 fl (7.4-10.4); Monocytes Absolute Auto 0.5 K/mm3 (0.1-0.6); Monocytes Percent Auto 5.7 % (2.6-8.5); Neutrophils Absolute Auto 7.5 K/mm3 (1.3-6.7); Neutrophils Percent Auto 89.8 % (45.5-73.1); Platelet Count Result 147 k/mm3 (150-375); Red Blood Count 2.71 M/mm3 (4.6-6.20); Red Cell Distribution Width 14.4 % (11.5-14.5); White Blood Count 8.3 K/mm3 (4.5-10.0)
[2019-09-06] MEDS: LIDOCAINE HCL 2% GEL UROJET 10 ML PKG MUCOUS MEM ×2 (05:03→12:45)
[2019-09-06 05:06] LABS: Alanine Aminotransferase 11 U/L (4-50); Albumin Level 2.4 g/dL (3.5-5.1); Alkaline Phosphatase 85 U/L (38-126); Aspartate Amino Transferase 21 U/L (17-59); Bilirubin,Total 0.2 mg/dL (0.2-1.3); Blood Urea Nitrogen 63 mg/dL (9-20); Calcium 7.7 mg/dL (8.4-10.2); Carbon Dioxide 15 mmol/L (22-30); Chloride 111 mmol/L (98-107); Estimated CRCL calculation 12 ml/min; Estimated Glomerular Filt Rate 10; Glucose 105 mg/dL (75-110); Potassium 5.9 mmol/L (3.4-5.0); Sodium 133 mmol/L (137-145)
--- NOTE | 2019-09-06 07:26 | WPDURCON ---
Assessment and Plan Assessment and plan (1) Calculus of left ureter: Code(s): N20.1 - Calculus of ureter Status: Acute Assessment and Plan: He will be taken to the operating room today for cystoscopy and left ureteral stent placement. He understands risks of bleeding, infection, damage to the urinary tract, inability to place the stent. He understands I will unlikely be taking care of the stone at this time. (2) Hydronephrosis: Code(s): N13.30 - Unspecified hydronephrosis Status: Acute (3) Acute renal failure superimposed on stage 4 chronic kidney disease: Code(s): N17.9 - Acute kidney failure, unspecified; N18.4 - Chronic kidney disease, stage 4 (severe) Status: Acute Urology Consult Note HPI Date Seen: 09/06/19 Requesting Physician: Sammi Briceno PA-C Primary Care Provider: [employer] PHYSICIAN Consult Narrative Narrative: Naldo Lowry is a 69 year old male who is a gentleman with multiple health problems and no prior history of stones. He had acute onset of left-sided abdominal pain yesterday. This prompted a visit to the emergency room. He was diagnosed with a 2-3 mm left proximal ureteral stone with hydronephrosis. He denied any nausea, vomiting, fevers, chills, dysuria. He denies any visible blood in the urine. He also has a history of chronic renal insufficiency and has had worsening of his baseline creatinine from 3 to 5 range. He also has signs of hyperkalemia that is being treated by the medicine service. He will undergo left ureteral stent today. 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 Edema of both legs DIMITRIS (obstructive sleep apnea) Other ascites PAF (paroxysmal atrial fibrillation) Presence of Watchman left atrial appendage closure device Pulmonary hypertension Surgical History Surgical History History of penile implant History of tonsillectomy Family History Family History (Updated 09/06/19 @ 01:25 by Jenniffer Arora RN) Mother Diabetes mellitus Father Family history of malignant neoplasm Family history of lung cancer Hypertension Sibling Diabetes mellitus Social History Social History Smoking packs per day: 1 Smoking cigarettes per day: 20.0 Years smoked: 10 Smoking pack-years: 10.00 Smoking status: Former smoker Smoking end date: 03/17/75 Alcohol intake: never Substance use: never Spiritual care concerns: No Meds Home Medications and Allergies Home Medications Medication Instructions Recorded Confirmed Type albuterol sulfate 90 mcg/actuation 1 puff INHALATION Q4H PRN 05/24/19 09/06/19 History aerosol inhaler amlodipine 5 mg tablet 5 mg PO DAILY 05/24/19 09/06/19 History aspirin 81 mg chewable tablet 81 mg PO DAILY 05/24/19 09/06/19 History hydralazine 50 mg tablet 50 mg PO TID 05/24/19 09/06/19 History ipratropium 20 mcg-albuterol 100 1 puff INHALATION Q4H PRN 05/24/19 09/06/19 History mcg/actuation mist for inhalation simvastatin 20 mg tablet 20 mg PO HS 05/24/19 09/06/19 History bumetanide 2 mg PO HS 09/06/19 09/06/19 History calcitriol 0.25 mcg PO DAILY 09/06/19 09/06/19 History clopidogrel [P
[2019-09-06 07:55] LABS: Glucose Point of Care 89 (65-105)
[2019-09-06] MEDS: DEXTROSE 5%/0.9% SOD CHL 1,000 ML 70 ML IV CONT (08:35)
[2019-09-06] MEDS: DEXTROSE 50% 25 GM/50 ML SYRINGE IV PUSH ×2 (08:40→13:12)
[2019-09-06] MEDS: CALCIUM GLUC 1,000 MG/NS 50 ML 1,000 MG/50 ML BAG 300 MG IVPB (08:40)
[2019-09-06] MEDS: SODIUM BICARBONATE 8.4% 50 MEQ/50 ML VIAL IV PUSH (08:41)
[2019-09-06] MEDS: INSULIN HUMAN REGULAR (*BKC) 100 UNITS/ML 10 UNITS IV PUSH (08:53)
[2019-09-06] MEDS: PROMETHAZINE HCL 25 MG/ML AMPUL 12.5 MG IV PUSH (09:13)
[2019-09-06] MEDS: SODIUM POLYSTYRENE SULFONONATE 15 GM/60 ML BTL PO (09:18)
[2019-09-06 10:58] LABS: Potassium 5.3 mmol/L (3.4-5.0)
--- NOTE | 2019-09-06 11:46 | WPDANESEPPF ---
Anes - Initial Pre Proc Eval Procedure: Operation Date: 09/06/19 16:00 Proposed Procedures p CYSTOSCOPY,LEFT STENT PLACEMENT - Gabriel Finch MD Date/Time: 09/06/19 11:46 Surgeon: Sammi Briceno PA-C Pre Op Diagnosis: hyperkalemia, acute on chronic renal failure, Patient Data Age: 69 Gender: M Height: 1.8 m Weight: 92.6 kg Last Vital Signs Temp 36.1 C L 09/06/19 08:00 Pulse 57 L 09/06/19 10:00 Resp 14 09/06/19 08:00 BP 137/57 L 09/06/19 08:00 Pulse Ox 97 09/06/19 08:00 Allergies Allergy/AdvReac Type Severity Reaction Status Date / Time codeine Allergy Unknown RASH/BLISTE Verified 09/05/19 19:33 RS Home Medications Medication Instructions Recorded Confirmed Type albuterol sulfate 90 mcg/actuation 1 puff INHALATION Q4H PRN 05/24/19 09/06/19 History aerosol inhaler amlodipine 5 mg tablet 5 mg PO DAILY 05/24/19 09/06/19 History aspirin 81 mg chewable tablet 81 mg PO DAILY 05/24/19 09/06/19 History hydralazine 50 mg tablet 50 mg PO TID 05/24/19 09/06/19 History ipratropium 20 mcg-albuterol 100 1 puff INHALATION Q4H PRN 05/24/19 09/06/19 History mcg/actuation mist for inhalation simvastatin 20 mg tablet 20 mg PO HS 05/24/19 09/06/19 History bumetanide 2 mg PO HS 09/06/19 09/06/19 History calcitriol 0.25 mcg PO DAILY 09/06/19 09/06/19 History clopidogrel [Plavix] 75 mg PO HS 09/06/19 09/06/19 History spironolactone 25 mg PO DAILY 09/06/19 09/06/19 History Laboratory Tests 09/05/19 09/05/19 09/05/19 19:43 19:43 19:43 WBC 8.0 K/mm3 K/mm3 (4.5-10.0) RBC 2.72 M/mm3 L M/mm3 (4.6-6.20) Hgb 8.0 g/dL L g/dL (14.0-18.0) Hct 24.8 % L % (42.0-52.0) MCV 91.2 fl fl (80-100) MCH 29.4 pg pg (26-34) MCHC 32.3 g/dl g/dl (32-36) RDW 14.6 % H % (11.5-14.5) Plt Count 136 k/mm3 L k/mm3 (150-375) MPV 8.7 fl fl (7.4-10.4) Immature Gran % (Auto) 1.0 % H % (0-0.5) Neut % (Auto) 94.3 % H % (45.5-73.1) Lymph % (Auto) 2.3 % L % (18.3-44.2) [place] % (Auto) 2.1 % L % (2.6-8.5) Eos % (Auto) 0.0 % % (0-4.4) Baso % (Auto) 0.3 % % (0.2-1.2) Lymph # (Auto) 0.18 K/mm3 L K/mm3 (0.9-3.2) [place] # (Auto) 0.2 K/mm3 K/mm3 (0.1-0.6) Eos # (Auto) 0.0 K/mm3 K/mm3 (0-0.3) Baso # (Auto) 0.0 K/mm3 K/mm3 (0.0-0.1) Abs Immat Gran (auto) 0.08 K/mm3 H K/mm3 (0.00-0.031) Absolute Neuts (auto) 7.5 K/mm3 H K/mm3 (1.3-6.7) Absolute Nucleated RBC 0.0 K/mm3 K/mm3 (0.0-0.012) Nucleated RBC % 0.0 % % (0.0-0.2) PT 14.8 Seconds H Seconds (11.1-14.7) INR 1.2 APTT 32.0 SECONDS SECONDS (22.3-36.8) Sodium 133 mmol/L L mmol/L (137-145) Potassium 5.9 mmol/L H mmol/L (3.4-5.0) Chloride 110 mmol/L H mmol/L (98-107) Carbon Dioxide 14 mmol/L L mmol/L (22-30) BUN 62 mg/dL H D mg/dL (9-20) Creatinine 5.50 mg/dL H mg/dL (0.7-1.3) Estim Creat Clear Calc 14 ml/min ml/min Estimated GFR 10 L (59 - ) Glucose 212 mg/dL H mg/dL (75-110) POC Capillary Glucose Lactic Acid Calcium 7.7 mg/dL L mg/dL (8.4-10.2) Magnesium 2.8 mg/dL H mg/dL (1.6-2.3) Total Bilirubin 0.3 mg/dL mg/dL (0.2-1.3) AST 21 U/L U/L (17-59) ALT 11 U/L U/L (4-50) Alkaline Phosphatase 107 U/L U/L (38-126) Ammonia Total Protein 5.0 g/dL L g/dL (6.3-8.2) Albumin 2.4 g/dL L g/dL (3.5-5.1) Lipase 38 U/L U/L (23-300) Urine Color Urine Appearance Urine pH Ur Specific [place] Urine Protein Urine Glucose (UA) Urine Ketones Ur Blood (Man)
[2019-09-06] MEDS: SODIUM CHLORIDE 0.9% IV 500 ML 30 ML IV CONT (12:00)
[2019-09-06] MEDS: ceFAZolin 2 GM/D5W 50 ML 2 GM/50 ML BAG IVPB (12:27)
--- NOTE | 2019-09-06 12:52 | PM.PROC ---
Procedure Note - Detailed Date of procedure: 09/06/19 Pre-op diagnosis: hyperkalemia, acute on chronic renal failure, Left ureteral stone with hydronephrosis Post-op diagnosis: same Procedure performed: Cystoscopy, left retrograde pyelogram, left stent placement Description of procedure: He was correctly identified and informed consent was obtained. He is from the operating room. He was given mac anesthesia. He is prepped and draped in a sterile fashion. Time-out performed. He was given appropriate perioperative antibiotics. Ultrasound done this morning did not show very much in the way of hydronephrosis. I reviewed his CT scan it also did not show much hydronephrosis but there is a definite ureteral stone. If his creatinine has worsened during admission. I will proceed with placement of a left ureteral stent Cystoscopy was performed. This showed his penile implant was deflated. He had moderate trabeculations and a few cellules. If I did a retrograde pyelogram on the left showing left hydronephrosis which I deemed is mild. It was hard to appreciate a filling defect. I placed a guidewire into the kidney. Upon placement of the guidewire to the kidney there was a hydronephrotic drip coming from the ureter as well as the expulsion of old bloody urine. I placed a 4.8 variable length stent. Proximal coil number full kidney. Distal coil in the bladder. Arredondo catheter was replaced. He was awakened and transferred to the PACU in stable condition. Implants: 4.8 ureteral stent. Anesthesia: MAC Surgeon: Gabriel Finch MD Estimated blood loss (mL): 0 Drains: Yes (Arredondo catheter) Packing: No Pathology: none sent Complications: No immediate complications Condition: stable Disposition: PACU
[2019-09-06 13:12] LABS: Glucose Point of Care 53 (65-105)
[2019-09-06 13:12] LABS: Glucose Point of Care 54 (65-105)
--- NOTE | 2019-09-06 13:15 | SUR.PHASEI ---
1308 - accucheck 54, rechecked 53. Dr. Navarrete called and orders received.
[2019-09-06 13:39] LABS: Glucose Point of Care 82 (65-105)
[2019-09-06 14:41] LABS: Glucose Point of Care 76 (65-105)
[2019-09-06 14:58] LABS: Potassium 5.4 mmol/L (3.4-5.0)
--- NOTE | 2019-09-06 15:37 | PM.IMPN ---
Progress Note: A&P Assessment and Plan (1) Acute renal failure superimposed on stage 4 chronic kidney disease: Code(s): N17.9 - Acute kidney failure, unspecified; N18.4 - Chronic kidney disease, stage 4 (severe) Status: Acute Assessment and Plan: Cr was elevated at 5.5 and BUN 62 at admission. This is likely post-renal due to hydronephrosis and underlying CKD. Avoid nephrotoxic agents and renally dose medications. Continue to monitor renal function. Nephrology is on board and recommendations are greatly appreciated. (2) Ureteral stone with hydronephrosis: Code(s): N13.2 - Hydronephrosis with renal and ureteral calculous obstruction Status: Acute Assessment and Plan: This is likely the cause for acute on chronic renal failure. Dr. Finch with urology is on board. He underwent cystoscopy with left retrograde pyelogram and left stent placement today. Upon guidewire placement, there was hydronephrotic drip from the ureter with the expulsion of old blood urine. He has hematuria in his french at this time. Continue analgesics PRN. Appreciate urology input. Continue to monitor. (3) Hyperkalemia: Code(s): E87.5 - Hyperkalemia Status: Acute Assessment and Plan: Potassium was 5.9 at admission to the ED. This is likely secondary to acute renal failure. He was treated with treated with kayexalate, insulin and dextrose, calcium gluconate, and sodium bicarbonate in the emergency department. Repeat potassium today was 5.9 so this kayexalate, insulin and dextrose, calcium gluconate, and sodium bicarbonate were administered again today. Continue to monitor serum potassium. Continue telemetry monitoring. Nephrology is on board and input is appreciated. (4) Metabolic acidosis: Code(s): E87.2 - Acidosis Status: Acute Assessment and Plan: Secondary to acute renal failure. IV bicarb was administered today. Continue to monitor. (5) Normocytic anemia: Code(s): D64.9 - Anemia, unspecified Status: Chronic Assessment and Plan: Chronic. Hemoglobin was 8.0 and Hct 24.8. This is likely due to anemia of chronic disease. Stable on review of previous labs. Continue to monitor hemoglobin and hematocrit and transfuse PRN to maintain Hb >7. (6) Cirrhosis of liver with ascites: Qualifiers: Hepatic cirrhosis type: unspecified hepatic cirrhosis Qualified Code(s): K74.60 - Unspecified cirrhosis of liver; R18.8 - Other ascites Code(s): K74.60 - Unspecified cirrhosis of liver; R18.8 - Other ascites Status: Chronic Assessment and Plan: The patient receives weekly paracentesis. He underwent therapeutic paracentesis today which yielded 5,000cc of fluid. Random urine sodium was 11 and random urine potassium was 53.4 indicating that the patient is diuretic resistant. Add 2gm dietary sodium restriction. Continue bumex. Continue to monitor. (7) Hyperlipidemia: Qualifiers: Hyperlipidemia type: unspecified Qualified Code(s): E78.5 - Hyperlipidemia, unspecified Code(s): E78.5 - Hyperlipidemia, unspecified Status: Acute Assessment and Plan: LFTs were reviewed and are normal. Continue simvastatin. (8) Hypertension: Qualifiers: Hypertension type: essential hypertension Qualified Code(s): I10 - Essential (primary) hypertension Code(s): I10 - Essential (primary) hypertension Status: Acute Assessment and Plan: Blood pressures were reviewed and are reasonably controlled. Continue amlodipine and bumetanide. Hold spironolactone due to hyperkalemia. Subjective Date/time seen: 09/06/19 15:37 Interval history: Mr. Lowry is seen and examined at bedside in follow-up for hyperkalemia, acute on chronic renal failure, and obstructing left ureteral stone. He was on the way to his paracentesis during my first attempt at evaluation so I went back to see him after hi
[2019-09-06] MEDS: hydrALAZINE HCL 50 MG TABLET PO (16:42)
[2019-09-06] MEDS: HYDROMORPHONE HCL 1 MG/ML INJ 0.5 MG IV PUSH (16:43)
[2019-09-06 17:56] LABS: Glucose Point of Care 100 (65-105)
--- NOTE | 2019-09-06 18:47 | PM.CNNEP ---
Assessment and Plan Assessment and plan (1) RENA (acute kidney injury): Code(s): N17.9 - Acute kidney failure, unspecified Status: Acute (2) Chronic kidney disease, stage IV (severe): Code(s): N18.4 - Chronic kidney disease, stage 4 (severe) Status: Acute (3) Calculus of left ureter: Code(s): N20.1 - Calculus of ureter Status: Acute (4) Cirrhosis of liver with ascites: Qualifiers: Hepatic cirrhosis type: unspecified hepatic cirrhosis Qualified Code(s): K74.60 - Unspecified cirrhosis of liver; R18.8 - Other ascites Code(s): K74.60 - Unspecified cirrhosis of liver; R18.8 - Other ascites Status: Chronic (5) Metabolic acidosis: Code(s): E87.2 - Acidosis Status: Acute Assessment and Plan: . Additional Plan Naldo has acute kidney injury/acute renal failure on top of his baseline chronic kidney disease as evidenced by his admission labs. It is suspected that his left renal stone may be playing a role with this phenomenon but I would expected his other kidney to make up for the fact that his left kidney may be obstructive. However given his advanced kidney disease at baseline, he may not have had the reserve to adapt to this issue. There is also of course the possibility that there has been some progression of his kidney disease at baseline that has been masked by the fact that he had a left ureteral stone and mild left hydronephrosis as well. My other concern of course is that he may have a bacterial peritonitis as the paracentesis procedure note is somewhat concerning by the appearance of the peritoneal fluid that was removed. I will try to order a cell count, Gram stain, and culture of the peritoneal fluid but I am unclear if this will be able to be done. The patient's potassium level has also been elevated which I suspect is probably due to a combination of the outpatient use of spironolactone coupled with his acute kidney injury/acute renal failure and metabolic acidosis. For now, I would treat his potassium level conservatively with medical management in the hopes that as his kidney function improves, this will improve as well. I will continue follow patient with you while he remains hospitalized to make further recommendations during his hospital course. Thank you for allowing me to participate in the care this patient. History of Present Illness Reason for Consult Consult date: 09/06/19 Reason for consult: acute renal failure (on chronic kidney disease) Chief Complaint Chief complaint: hyperkalemia, acute on chronic renal failure, History of Present Illness Narrative: The patient is a 69 year old male with a past medical history as outlined below who presented to the [facility] ER with complaints of left sided abdominal pain. The abdominal pain started early yesterday morning and was associated with nausea and vomiting. He reports no fever or chills. Apparently, he also noted decrease in urine output as well. He initially thought the pain was secondary to his known/chronic ascites and had hoped he could hold out until his scheduled outpatient paracentesis today but the pain was so severe that he came to the ER instead. Work and evaluation in the ER found The patient to be hemodynamically stable but in significant discomfort. Routine blood test demonstrated significant worsening of his chronic kidney disease associated with hyperkalemia and metabolic acidosis. A CT scan of the abdomen and pelvis demonstrated obstructing 2-3 mm proximal left ureteral stone with mild left hydronephrosis. given these constellation of symptoms and lab/imaging findings, he was admitted the hospital for further evaluation and therapy. Urology was consulted by the emergency room given the evidence of obstructive uropathy. Renal consultation was requested due to his acute kidney injury on chronic kidney disease. The patient is familiar to me as I take c
[2019-09-06] MEDS: BUMETANIDE 1 MG TABLET 2 MG PO (20:28)
[2019-09-06] MEDS: CLOPIDOGREL BISULFATE 75 MG TABLET PO (20:28)
[2019-09-06] MEDS: SIMVASTATIN 20 MG TABLET PO (20:28)
[2019-09-06 23:15] LABS: Glucose Point of Care 76 (65-105)
[2019-09-07] VITALS (16 sets, daily range): BP systolic 126–132; BP diastolic 40–51; PULSE 56–74; RESP 12–20; TEMP 36.4–37; O2SAT 90–96
[2019-09-07 04:46] LABS: Basophils Percent Auto 0.1 % (0.2-1.2); Eosinophils Absolute Auto 0.2 K/mm3 (0-0.3); Eosinophils Percent Auto 1.1 % (0-4.4); Hemoglobin 7.1 g/dL (14.0-18.0); Immature Granulocyte Absolute 0.09 K/mm3 (0.00-0.031); Immature Granulocyte Percent A 0.6 % (0-0.5); Lymphocytes Absolute Auto 0.27 K/mm3 (0.9-3.2); Lymphocytes Percent Auto 1.8 % (18.3-44.2); Mean Corpuscular HGB Conc 32.3 g/dl (32-36); Mean Corpuscular Volume 89.8 fl (80-100); Mean Platelet Volume 8.9 fl (7.4-10.4); Monocytes Percent Auto 6.9 % (2.6-8.5); Neutrophils Absolute Auto 13.6 K/mm3 (1.3-6.7); Neutrophils Percent Auto 89.5 % (45.5-73.1); Platelet Count Result 126 k/mm3 (150-375); Red Blood Count 2.45 M/mm3 (4.6-6.20); Red Cell Distribution Width 14.7 % (11.5-14.5); White Blood Count 15.1 K/mm3 (4.5-10.0)
[2019-09-07 04:59] LABS: Alanine Aminotransferase 9 U/L (4-50); Alkaline Phosphatase 51 U/L (38-126); Aspartate Amino Transferase 24 U/L (17-59); Bilirubin,Total 0.3 mg/dL (0.2-1.3); Blood Urea Nitrogen 65 mg/dL (9-20); Calcium 7.1 mg/dL (8.4-10.2); Carbon Dioxide 17 mmol/L (22-30); Chloride 112 mmol/L (98-107); Estimated CRCL calculation 12 ml/min; Estimated Glomerular Filt Rate 11; Glucose 75 mg/dL (75-110); Magnesium 2.5 mg/dL (1.6-2.3); Potassium 5.9 mmol/L (3.4-5.0); Sodium 134 mmol/L (137-145)
--- NOTE | 2019-09-07 08:00 | WPDANESPN ---
Anes - Prog Note Post-Op Date/Time: 09/07/19 08:00 Cardiovascular status: normal Respiratory status: normal Airway patency: baseline Mental status: baseline Post-Op hydration status: normal Vital Signs: Last Vital Signs Temp 36.6 C 09/07/19 04:03 Pulse 68 09/07/19 05:53 Resp 20 09/07/19 04:03 BP 128/51 L 09/07/19 04:03 Pulse Ox 96 09/07/19 04:03 I/O: Intake & Output 09/06/19 09/07/19 09/07/19 23:59 07:59 15:59 Intake Total 990 100 Output Total 75 250 Balance 915 -150 Laboratory Tests 09/07/19 04:28 09/07/19 04:28 09/06/19 09/06/19 09/06/19 10:34 13:07 13:11 WBC RBC Hgb Hct MCV MCH MCHC RDW Plt Count MPV Immature Gran % (Auto) Neut % (Auto) Lymph % (Auto) Tucker % (Auto) Eos % (Auto) Baso % (Auto) Lymph # (Auto) Tucker # (Auto) Eos # (Auto) Baso # (Auto) Abs Immat Gran (auto) Absolute Neuts (auto) Absolute Nucleated RBC Nucleated RBC % Sodium Potassium 5.3 H Chloride Carbon Dioxide BUN Creatinine Estim Creat Clear Calc Estimated GFR Glucose POC Capillary Glucose 54 L* 53 L* Calcium Magnesium Total Bilirubin AST ALT Alkaline Phosphatase Total Protein Albumin 09/06/19 09/06/19 09/06/19 13:37 14:38 14:39 WBC RBC Hgb Hct MCV MCH MCHC RDW Plt Count MPV Immature Gran % (Auto) Neut % (Auto) Lymph % (Auto) Tucker % (Auto) Eos % (Auto) Baso % (Auto) Lymph # (Auto) Tucker # (Auto) Eos # (Auto) Baso # (Auto) Abs Immat Gran (auto) Absolute Neuts (auto) Absolute Nucleated RBC Nucleated RBC % Sodium Potassium 5.4 H Chloride Carbon Dioxide BUN Creatinine Estim Creat Clear Calc Estimated GFR Glucose POC Capillary Glucose 82 76 Calcium Magnesium Total Bilirubin AST ALT Alkaline Phosphatase Total Protein Albumin 09/06/19 09/06/19 09/07/19 17:53 23:13 04:28 WBC 15.1 H RBC 2.45 L Hgb 7.1 L Hct 22.0 L MCV 89.8 MCH 29.0 MCHC 32.3 RDW 14.7 H Plt Count 126 L MPV 8.9 Immature Gran % (Auto) 0.6 H Neut % (Auto) 89.5 H Lymph % (Auto) 1.8 L Tucker % (Auto) 6.9 Eos % (Auto) 1.1 Baso % (Auto) 0.1 L Lymph # (Auto) 0.27 L Tucker # (Auto) 1.0 H Eos # (Auto) 0.2 Baso # (Auto) 0.0 Abs Immat Gran (auto) 0.09 H Absolute Neuts (auto) 13.6 H Absolute Nucleated RBC 0.0 Nucleated RBC % 0.0 Sodium Potassium Chloride Carbon Dioxide BUN Creatinine Estim Creat Clear Calc Estimated GFR Glucose POC Capillary Glucose 100 76 Calcium Magnesium Total Bilirubin AST ALT Alkaline Phosphatase Total Protein Albumin 09/07/19 04:28 WBC RBC Hgb Hct MCV MCH MCHC RDW Plt Count MPV Immature Gran % (Auto) Neut % (Auto) Lymph % (Auto) Tucker % (Auto) Eos % (Auto) Baso % (Auto) Lymph # (Auto) Tucker # (Auto) Eos # (Auto) Baso # (Auto) Abs Immat Gran (auto) Absolute Neuts (auto) Absolute Nucleated RBC Nucleated RBC % Sodium 134 L Potassium 5.9 H Chloride 112 H Carbon Dioxide 17 L BUN 65 H Creatinine 5.40 H Estim Creat Clear Calc 12 Estimated GFR 11 L Glucose 75 POC Capillary Glucose Calcium 7.1 L Magnesium 2.5 H Total Bilirubin 0.3 AST 24 ALT 9 Alkaline Phosphatase 51 Total Protein 4.0 L Albumin 2.0 L Post-procedural complaints: none Patient Feedback: Patient satisfied with anesthetic care.
[2019-09-07 08:39] LABS: Glucose Point of Care 87 (65-105)
[2019-09-07] MEDS: SODIUM POLYSTYRENE SULFONONATE 15 GM/60 ML BTL PO (09:11)
[2019-09-07] MEDS: PROMETHAZINE HCL 25 MG/ML AMPUL 12.5 MG IV PUSH (09:11)
[2019-09-07] MEDS: DEXTROSE 5%/0.9% SOD CHL 1,000 ML 50 ML IV CONT (09:12)
--- NOTE | 2019-09-07 09:12 | PM.IMPN ---
Progress Note: A&P Assessment and Plan (1) Acute renal failure superimposed on stage 4 chronic kidney disease: Code(s): N17.9 - Acute kidney failure, unspecified; N18.4 - Chronic kidney disease, stage 4 (severe) Status: Acute Assessment and Plan: He has an acute worsening of his stage IV CKD, most likely postrenal secondary to hydronephrosis. Baseline creatinine appears to be 3.5. BUN is 65 and creatinine is 5.4 today. Nephrology has been consulted and their recommendations are greatly appreciated Avoid nephrotoxic agents and renally dose medications. Continue to monitor renal function closely. Would expect improvement following ureteral stent placement, however if he does not display improvement will need to consider further intervention (2) Ureteral stone with hydronephrosis: Code(s): N13.2 - Hydronephrosis with renal and ureteral calculous obstruction Status: Acute Assessment and Plan: He underwent left ureteral stent placement 09/06/[address] Finch. He appears to have tolerated procedure well and his pain is well controlled. Urology is following the patient and their recommendations are appreciated. Continue analgesics as needed. Continue to monitor urine output via Arredondo catheter. (3) Hyperkalemia: Code(s): E87.5 - Hyperkalemia Status: Acute Assessment and Plan: Patient has had hyperkalemia since presentation. This is mostly likely related to his CKD and worsened with spironolactone therapy, which has since been discontinued. He has been treated with Kayexalate, calcium gluconate, insulin and dextrose, and sodium bicarbonate. Review of telemetry shows no evidence of arrhythmia. His potassium levels are fluctuant and continue to increase back to 5.9. Continue Kayexalate and sodium bicarbonate. Discontinue Lovenox for DVT prophylaxis which may contribute to hyperkalemia. Switch to SCDs. Continue to hold spironolactone Continue to monitor potassium levels closely. (4) Metabolic acidosis: Code(s): E87.2 - Acidosis Status: Acute Assessment and Plan: This is related to his acute on chronic renal failure. Appreciate nephrology recommendations Continue sodium bicarbonate Continue to monitor acid-base status (5) Normocytic anemia: Code(s): D64.9 - Anemia, unspecified Status: Chronic Assessment and Plan: This is most likely anemia of chronic disease. He did have a drop in hemoglobin to 7.1 today which remained stable upon repeat. Vitals are stable at this time. Continue to monitor H&H Q6 hours Will check iron panel, B12, and folate Consider IV iron infusion dependent on iron levels Transfuse if hemoglobin <7.0 or if he becomes symptomatic. I would like to limit blood transfusion if possible given recent blood shortage, however will need to monitor symptoms closely (6) Cirrhosis of liver with ascites: Qualifiers: Hepatic cirrhosis type: unspecified hepatic cirrhosis Qualified Code(s): K74.60 - Unspecified cirrhosis of liver; R18.8 - Other ascites Code(s): K74.60 - Unspecified cirrhosis of liver; R18.8 - Other ascites Status: Chronic Assessment and Plan: He underwent paracentesis on 09/06/2019 which yielded 5000 mL cloudy brownish fluid. He reports he has had multiple paracenteses done recently, almost weekly. Continue to hold spironolactone Continue Bumex There is concern for SBP. His peritoneal fluid was sent for culture which is pending at this time. Continue to monitor closely (7) H/O: HTN (hypertension): Code(s): Z86.79 - Personal history of other diseases of the circulatory system Status: Chronic Assessment and Plan: His blood pressures have been somewhat soft but stable and appear to be close to baseline. Will hold amlodipine and hydralazine at this time, given possibility of hypovolemia related to anemia. Continue to monitor
[2019-09-07] MEDS: ENOXAPARIN 30 MG/0.3 ML SYRINGE SUB-Q (09:14)
[2019-09-07] MEDS: hydrALAZINE HCL 50 MG TABLET PO (09:14)
[2019-09-07] MEDS: calcitrioL 0.25 MCG CAPSULE PO (09:15)
[2019-09-07] MEDS: AMLODIPINE BESYLATE 5 MG TABLET PO (09:15)
[2019-09-07] MEDS: ASPIRIN 81 MG CHEWABLE TABLET PO (09:16)
[2019-09-07] MEDS: HYDROMORPHONE HCL 1 MG/ML INJ 0.5 MG IV PUSH (09:17)
--- NOTE | 2019-09-07 10:13 | PM.PNNEP ---
Progress Note: A&P Assessment and Plan (1) RENA (acute kidney injury): Code(s): N17.9 - Acute kidney failure, unspecified Status: Acute Assessment and Plan: though to be secondary to left ureteral stone and mild hydronephrosis - however, would have assumed that right kidney would have compensated for this - perhaps, given his advanced CKD at baseline, his right kidney was not able to adapt another concern would be there has been a component of kidney disease progression still with issues relating to acidosis and hyperkalemia despite interventions to date follow repeat labs and UOP if renal function does not improve and has persistent issues with hyperkalemia and acidosis, may need to consider renal replacement therapy/dialysis (2) Chronic kidney disease, stage IV (severe): Code(s): N18.4 - Chronic kidney disease, stage 4 (severe) Status: Acute Assessment and Plan: creatinine had been running around 3.5 - 3.6mg/dl earlier this year due to cardiovascular disease, CHF, liver cirrhosis and associated liver physiology, DIMITRIS/pulmonary HTN, and necessity of diuretics to maintain his volume status (3) Hyperkalemia: Code(s): E87.5 - Hyperkalemia Status: Acute Assessment and Plan: due to #1 worsened by outpatient use of spironolactone (and long half life with CKD) hold spironolactone medical management for now (4) Metabolic acidosis: Code(s): E87.2 - Acidosis Status: Acute Assessment and Plan: worsened by #1 start low dose bicarb fluids to compensate likely to also need oral sodium bicarbonate (5) Calculus of left ureter: Code(s): N20.1 - Calculus of ureter Status: Acute Assessment and Plan: s/p cystoscopy, retrograge pyelogram, and stent placement Urology following (6) Cirrhosis of liver with ascites: Qualifiers: Hepatic cirrhosis type: unspecified hepatic cirrhosis Qualified Code(s): K74.60 - Unspecified cirrhosis of liver; R18.8 - Other ascites Code(s): K74.60 - Unspecified cirrhosis of liver; R18.8 - Other ascites Status: Chronic Assessment and Plan: chronic condition s/p large volume paracentesis -- possible SBP? (see procedure report with regard to appearance of ascites) Long and extensive discussion (> 20 minutes) with patient regarding renal dysfunction as well as the possibility of dialysis in the near future -- he is aware of this as I had discussed this with him in office previously. Will continue to follow. Subjective Date/time seen: 09/07/19 10:13 Appears to be doing a bit better today; no real significant change in renal function noted; no apparent distress voiced; no events/issues overnight or this AM. Exam Narrative: Exam Narrative: General: WD/WN male in NAD Heart: normal S1 and S2; no rub Lungs: clear to auscultation Abdomen: soft, mild TTP, mild distension, positive bowel sounds Extremities: no cyanosis or clubbing; 1+ edema Skin: warm and dry Objective Data Vital Signs Vital Signs: Vital Signs Temp Pulse Resp BP Pulse Ox 09/07/19 08:39 36.4 C L 73 12 126/51 L 90 09/07/19 08:00 72 09/07/19 05:53 68 09/07/19 04:03 36.6 C 67 20 128/51 L 96 09/07/19 03:55 72 20 96 09/07/19 02:00 74 09/06/19 23:14 36.5 C 72 20 127/46 L 96 09/06/19 23:13 68 18 94 09/06/19 22:00 66 09/06/19 20:00 71 18 94 09/06/19 19:36 36.6 C 69 18 119/59 L 94 09/06/19 18:00 73 09/06/19 17:59 35.6 C L 72 12 131/55 L 96 09/06/19 17:00 35.7 C L 76 12 133/49 L 93 09/06/19 16:00 75 09/06/19 15:14 35.7 C L 86 12 142/63 H 96 09/06/19 15:13 35.7 C L 86 12 142/63 H 96 09/06/19 14:52 35.5 C L 56 L 12 126/58 L 94 09/06/19 14:51 35.5 C L 56 L 12 126/58 L 94 09/06/19 14:35 35.8 C L 73 14 138/74 95 09/06/19 14:34 35.8 C L 73 14 138/74 95 09/06/19 14:00 60
[2019-09-07 10:27] LABS: Hematocrit 22.1 % (42.0-52.0); Hemoglobin 7.1 g/dL (14.0-18.0)
[2019-09-07] MEDS: SODIUM BICARBONATE 8.4% 75 MEQ in SODIUM CHLORIDE 0.45% 1,000 ML 50 MEQ IV CONT (11:09)
[2019-09-07 12:40] LABS: Glucose Point of Care 97 (65-105)
--- NOTE | 2019-09-07 12:56 | WPDUROPN2 ---
Progress Note: A&P Assessment and Plan (1) Calculus of left ureter: Code(s): N20.1 - Calculus of ureter Status: Acute Assessment and Plan: Will plan to extract stone from left UPJ as an outpatient when patient is more stable. Stent will remain in place. No further surgical intervention at this time. (2) Hematuria: Code(s): R31.9 - Hematuria, unspecified Status: Acute Assessment and Plan: Manually irrigate q shift to prevent bladder clots, likely related to stent as UA is normal. Subjective Subjective Date/Time Seen: 09/07/19 12:56 POD#1 Cystoscopy, ureteroscopy with left stent placement, retrograde pyelogram. Doing well, no pain, urine is bloody today. Review of Systems Cardiovascular: Cardiovascular: Denies chest pain Respiratory: Respiratory: Reports no additional respiratory complaints Gastrointestinal: Gastrointestinal: Denies abdominal pain, Denies nausea and Denies vomiting Genitourinary: Genitourinary: Reports hematuria Exam Resp: Effort & Inspection: normal respiratory effort Cardio: Rate: regular rate GI: Inspection: incision (dry, intact dressing over paracentisis site.) GI Palp: No abdominal tenderness and Yes Soft to palpation Urinary Catheter: Urinary Catheter: patent and draining and urine red Extrem: General: edema Objective Data Vital Signs Vital Signs: Vital Signs - 24 hr 09/06/19 12:57 09/06/19 13:10 09/06/19 13:25 Temperature 97.0 F L Pulse Rate 61 55 L 55 L Respiratory Rate 14 12 14 Blood Pressure 132/49 L 120/48 L 125/58 L Pulse Oximetry 100 95 96 09/06/19 13:40 09/06/19 13:55 09/06/19 14:00 Temperature Pulse Rate 55 L 55 L 60 Respiratory Rate 12 12 Blood Pressure 139/60 122/51 L Pulse Oximetry 95 94 09/06/19 14:34 09/06/19 14:35 09/06/19 14:51 Temperature 96.5 F L 96.5 F L 95.9 F L Pulse Rate 73 73 56 L Respiratory Rate 14 14 12 Blood Pressure 138/74 138/74 126/58 L Pulse Oximetry 95 95 94 09/06/19 14:52 09/06/19 15:13 09/06/19 15:14 Temperature 95.9 F L 96.2 F L 96.2 F L Pulse Rate 56 L 86 86 Respiratory Rate 12 12 12 Blood Pressure 126/58 L 142/63 H 142/63 H Pulse Oximetry 94 96 96 09/06/19 16:00 09/06/19 17:00 09/06/19 17:59 Temperature 96.2 F L 96.1 F L Pulse Rate 75 76 72 Respiratory Rate 12 12 Blood Pressure 133/49 L 131/55 L Pulse Oximetry 93 96 09/06/19 18:00 09/06/19 19:36 09/06/19 20:00 Temperature 97.9 F Pulse Rate 73 69 71 Respiratory Rate 18 18 Blood Pressure 119/59 L Pulse Oximetry 94 94 09/06/19 22:00 09/06/19 23:13 09/06/19 23:14 Temperature 97.7 F Pulse Rate 66 68 72 Respiratory Rate 18 20 Blood Pressure 127/46 L Pulse Oximetry 94 96 09/07/19 02:00 09/07/19 03:55 09/07/19 04:03 Temperature 97.9 F Pulse Rate 74 72 67 Respiratory Rate 20 20 Blood Pressure 128/51 L Pulse Oximetry 96 96 09/07/19 05:53 09/07/19 08:00 09/07/19 08:39 Temperature 97.5 F L Pulse Rate 68 72 73 Respiratory Rate 12 Blood Pressure 126/51 L Pulse Oximetry 90 09/07/19 10:00 09/07/19 12:41 Temperature 97.5 F L Pulse Rate 72 65 Respiratory Rate 12 Blood Pressure 127/49 L Pulse Oximetry 92 Intake/Output Intake/Output: Intake & Output 09/04/19 09/05/19 09/06/19 09/07/19 23:59 23:59 23:59 23:59 Intake Total 50 2040 1530 Output Total 300 5075 250 Balance -250 -5217 1280 Meds/Results Medications: Active Medications Generic Name Dose Route Start Last Admin Trade Name Freq PRN Reason Stop Dose Admin Albuterol 1 puff 09/06/19 14:04 Proventil Hfa INHALATION Q4HRT PRN Shortness Of Breath Amlodipine Besylate 5 mg 09/07/19 09:00 09/07/19 09:15 Norvasc PO 5 mg DAILY NOÉ Administration Aspirin 81 mg 09/07/19 09:00 09/07/19 09:16 Aspirin Chewable PO 81 mg DAILY NOÉ Administration Bumetanide 2 mg 09/06/19 21:00 09/06/19 20:28 Bumex Po PO 2 mg HS NOÉ Administration Calcitriol 0.
[2019-09-07 13:22] LABS: Potassium 5.8 mmol/L (3.4-5.0)
[2019-09-07 13:36] LABS: Iron 37 ug/dL (49-181)
[2019-09-07 13:45] LABS: Percent Iron Saturation 18 % (20-50)
[2019-09-07 14:32] LABS: Folic Acid 16.8 ng/mL (2.76->20)
[2019-09-07 15:23] LABS: Hemoglobin 7.4 g/dL (14.0-18.0)
[2019-09-07 17:07] LABS: Glucose Point of Care 90 (65-105)
--- NOTE | 2019-09-07 18:58 | PC.NURSE ---
Irrigated patient french with sterile water. No visible clots.
[2019-09-07] MEDS: CLOPIDOGREL BISULFATE 75 MG TABLET PO (20:51)
[2019-09-07] MEDS: BUMETANIDE 1 MG TABLET 2 MG PO (20:51)
[2019-09-07] MEDS: SIMVASTATIN 20 MG TABLET PO (20:51)
[2019-09-07 21:18] LABS: Hematocrit 22.8 % (42.0-52.0); Hemoglobin 7.3 g/dL (14.0-18.0)
[2019-09-08] VITALS (18 sets, daily range): BP systolic 135–178; BP diastolic 48–77; PULSE 50–77; RESP 12–20; TEMP 35.8–37.1; O2SAT 91–100
[2019-09-08 02:46] LABS: Glucose Point of Care 97 (65-105)
[2019-09-08 05:20] LABS: Basophils Absolute Auto 0.1 K/mm3 (0.0-0.1); Basophils Percent Auto 0.5 % (0.2-1.2); Eosinophils Absolute Auto 0.6 K/mm3 (0-0.3); Eosinophils Percent Auto 6.2 % (0-4.4); Hematocrit 22.9 % (42.0-52.0); Hemoglobin 7.1 g/dL (14.0-18.0); Immature Granulocyte Absolute 0.08 K/mm3 (0.00-0.031); Immature Granulocyte Percent A 0.9 % (0-0.5); Lymphocytes Absolute Auto 0.36 K/mm3 (0.9-3.2); Lymphocytes Percent Auto 3.9 % (18.3-44.2); Mean Corpuscular Hemoglobin 29.1 pg (26-34); Mean Corpuscular Volume 93.9 fl (80-100); Mean Platelet Volume 9.2 fl (7.4-10.4); Monocytes Absolute Auto 1.1 K/mm3 (0.1-0.6); Monocytes Percent Auto 11.9 % (2.6-8.5); Neutrophils Absolute Auto 7.1 K/mm3 (1.3-6.7); Neutrophils Percent Auto 76.6 % (45.5-73.1); Nucleated Red Blood Cells Perc 0.2 % (0.0-0.2); Platelet Count Result 112 k/mm3 (150-375); Red Blood Count 2.44 M/mm3 (4.6-6.20); Red Cell Distribution Width 14.5 % (11.5-14.5); White Blood Count 9.3 K/mm3 (4.5-10.0)
[2019-09-08 05:31] LABS: Albumin Level 1.9 g/dL (3.5-5.1); Alkaline Phosphatase 67 U/L (38-126); Aspartate Amino Transferase 24 U/L (17-59); Bilirubin,Total 0.1 mg/dL (0.2-1.3); Blood Urea Nitrogen 66 mg/dL (9-20); Calcium 6.9 mg/dL (8.4-10.2); Carbon Dioxide 15 mmol/L (22-30); Chloride 110 mmol/L (98-107); Estimated CRCL calculation 13 ml/min; Estimated Glomerular Filt Rate 9; Glucose 78 mg/dL (75-110); Potassium 4.9 mmol/L (3.4-5.0); Sodium 134 mmol/L (137-145)
[2019-09-08 06:39] LABS: Glucose Point of Care 83 (65-105)
[2019-09-08 06:59] LABS: Alanine Aminotransferase < 6 U/L (4-50)
[2019-09-08 07:22] LABS: Hypochromasia 1+ (NORMAL); Ovalocytes 1+ (NORMAL); Platelet Estimate Decreased (Adequate)
[2019-09-08 08:20] LABS: Glucose Point of Care 80 (65-105)
--- NOTE | 2019-09-08 09:22 | PM.IMPN ---
Progress Note: A&P Assessment and Plan (1) Acute renal failure superimposed on stage 4 chronic kidney disease: Code(s): N17.9 - Acute kidney failure, unspecified; N18.4 - Chronic kidney disease, stage 4 (severe) Status: Acute Assessment and Plan: He has an acute worsening of his stage IV CKD, most likely postrenal secondary to hydronephrosis. Baseline creatinine appears to be 3.5. BUN is 66 and creatinine is 5.9 today. Nephrology has been consulted and their recommendations are greatly appreciated Avoid nephrotoxic agents and renally dose medications. Continue to monitor renal function closely. Would expect improvement following ureteral stent placement, however if he does not display improvement will need to consider further intervention (2) Ureteral stone with hydronephrosis: Code(s): N13.2 - Hydronephrosis with renal and ureteral calculous obstruction Status: Acute Assessment and Plan: He underwent left ureteral stent placement 09/06/[address] Finch. He appears to have tolerated procedure well and his pain is well controlled. He has a Arredondo catheter in place with evidence of hematuria likely secondary to stent. Urology is following the patient and their recommendations are appreciated. Continue bladder irrigation per Urology recommendations Continue analgesics as needed. Continue to monitor urine output via Arredondo catheter. He will require stone extraction at a later date (3) Hyperkalemia: Code(s): E87.5 - Hyperkalemia Status: Acute Assessment and Plan: Patient had hyperkalemia at presentation, which was fluctuant but persistent. This is mostly likely related to his CKD and worsened with spironolactone therapy, which has since been discontinued. He has been treated with Kayexalate, calcium gluconate, insulin and dextrose, and sodium bicarbonate. Review of telemetry shows no evidence of arrhythmia. Potassium is stable at 4.9 today. Continue Kayexalate and sodium bicarbonate. Continue to hold spironolactone Continue to monitor potassium levels closely. (4) Metabolic acidosis: Code(s): E87.2 - Acidosis Status: Acute Assessment and Plan: This is related to his acute on chronic renal failure. His CO2 is low at 15 today. Appreciate nephrology recommendations Continue sodium bicarbonate IV Continue to monitor closely (5) Normocytic anemia: Code(s): D64.9 - Anemia, unspecified Status: Chronic Assessment and Plan: Iron panel is consistent with anemia of chronic disease. Hemoglobin was 8.0 at presentation, however levels declined. Potassium was relatively stable at 7.1-7.4, however this afternoon hemoglobin decreased to 6.9. His vitals are stable. He is relatively asymptomatic. Transfuse 1 unit pRBC Continue to monitor H&H Q6 hours Will repeat transfusion if necessary (6) Cirrhosis of liver with ascites: Qualifiers: Hepatic cirrhosis type: unspecified hepatic cirrhosis Qualified Code(s): K74.60 - Unspecified cirrhosis of liver; R18.8 - Other ascites Code(s): K74.60 - Unspecified cirrhosis of liver; R18.8 - Other ascites Status: Chronic Assessment and Plan: He underwent paracentesis on 09/06/2019 which yielded 5000 mL cloudy brownish fluid. He reports he has been undergoing paracenteses weekly. Continue to hold spironolactone given hyperkalemia Continue Bumex There is concern for SBP. His peritoneal fluid was sent for culture. Preliminary anaerobic culture reveals moderate white blood cells. Will continue to monitor cultures. I have placed a consult to Gastroenterology given patient's recurrent need for paracentesis and possible SBP. Recommendations are appreciated Continue to monitor closely (7) H/O: HTN (hypertension): Code(s): Z86.79 - Personal history of other diseases of the circulatory system Status: Chronic Assessment and Plan:
[2019-09-08] MEDS: SODIUM BICARBONATE 8.4% 75 MEQ in SODIUM CHLORIDE 0.45% 1,000 ML 50 MEQ IV CONT (11:38)
[2019-09-08] MEDS: ASPIRIN 81 MG CHEWABLE TABLET PO (11:40)
[2019-09-08] MEDS: calcitrioL 0.25 MCG CAPSULE PO (11:40)
[2019-09-08 12:03] LABS: Hematocrit 21.4 % (42.0-52.0)
[2019-09-08 12:07] LABS: Hemoglobin 6.9 g/dL (14.0-18.0)
[2019-09-08 14:00] LABS: Glucose Point of Care 97 (65-105)
[2019-09-08 16:32] LABS: Glucose Point of Care 98 (65-105)
[2019-09-08] MEDS: SODIUM CHLORIDE 0.9% IV 250 ML 30 ML IV CONT (16:45)
[2019-09-08] MEDS: TUBING, BLOOD PLUM PUMP TUBING 1 EACH XX (16:46)
--- NOTE | 2019-09-08 17:07 | WPDGICN ---
Assessment and Plan Assessment and plan (1) Cirrhosis of liver with ascites: Qualifiers: Hepatic cirrhosis type: unspecified hepatic cirrhosis Qualified Code(s): K74.60 - Unspecified cirrhosis of liver; R18.8 - Other ascites Code(s): K74.60 - Unspecified cirrhosis of liver; R18.8 - Other ascites Status: Chronic Assessment and Plan: Patient has a history of cirrhosis of liver for many years. Old records attribute this to BURROWS. Patient gives no history of alcohol abuse. Is currently attributed to fatty liver although I do not believe a biopsy has been performed. Currently he has rather significant ascites with peripheral edema. Anasarca. Apparently this been recalcitrant outpatient diuretics. In frequent paracenteses have been required. At the present time would prefer to avoid recurrent paracenteses because this deplete the body of albumin. Plan is for low-salt diet. Diuretics are already in progress and electrolytes are being monitored. We may need to consider a TI PS shunt that could be performed at [facility] or [facility]. This will be deferred until clinical status here is more stable. In the antrum low-fat salt diet and continue diureses will be continued. Should abdominal paracentesis be required and then albumin infusion at the same time is strongly encourage. At some point might be fruitful to obtain liver biopsy however this may not be possible till is ascites has subsided to some degree. Ascitic fluid will be sent for cytology indeed addition to laboratory testing and culturing. It is reported that he has dark ascitic fluid removed raising the question of traumatic tap or hemoperitoneum.. (2) Anasarca: Code(s): R60.1 - Generalized edema Status: Acute Assessment and Plan: Anasarca identified which likely is related to his underlying cirrhosis of liver. However could portions of this could be attributed to nephrotic syndrome with his chronic kidney disease. Patient currently on diuretics and low-salt diet will be monitored. Daily weights are encourage. (3) Calculus of left ureter: Code(s): N20.1 - Calculus of ureter Status: Acute Assessment and Plan: Patient is status post renal stent for calculus of the ureter. Renal service following as he had subsequent hydronephrosis hopefully now drain. (4) Acute renal failure superimposed on stage 4 chronic kidney disease: Code(s): N17.9 - Acute kidney failure, unspecified; N18.4 - Chronic kidney disease, stage 4 (severe) Status: Acute (5) PAF (paroxysmal atrial fibrillation): Code(s): I48.0 - Paroxysmal atrial fibrillation Status: Acute (6) Chronic diastolic (congestive) heart failure: Code(s): I50.32 - Chronic diastolic (congestive) heart failure Status: Acute (7) Anemia: Code(s): D64.9 - Anemia, unspecified Status: Acute Assessment and Plan: Iron in DC suggest anemia of chronic disease no significant obvious bleeding at this time is noted old records reflects significant GI bleeding in 2018 for which she was transferred to [facility] in [place] the final outcome of that is somewhat unclear. GI Consult Note Consult date/time: 09/08/19 17:07 HPI: Naldo Lowry is a 69 year old male seen in evaluation at the request of the hospitalist service. 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 Admitted to the hospital with abdominal pain was found to have hydronephrosis an obstructing ureteral stone this required cystostomy an ureteral stent placement patient has significant chronic kidney disease with acute renal insufficiency attributed to the kidney stone. He has a history of cirrhosis of the liver dating back at least to 2018 however over the last year has had increasing abdominal girth and ascites requiring abdominal paracenteses on a bout a weekly basis under the direction
--- NOTE | 2019-09-08 17:48 | PM.PNNEP ---
Progress Note: A&P Assessment and Plan (1) RENA (acute kidney injury): Code(s): N17.9 - Acute kidney failure, unspecified Status: Acute Assessment and Plan: though to be secondary to left ureteral stone and mild hydronephrosis - however, would have assumed that right kidney would have compensated for this - perhaps, given his advanced CKD at baseline, his right kidney was not able to adapt another concern would be there has been a component of kidney disease progression still with issues relating to acidosis and hyperkalemia despite interventions to date follow repeat labs and UOP if renal function does not improve and has persistent issues with hyperkalemia and acidosis, may need to consider renal replacement therapy/dialysis (2) Chronic kidney disease, stage IV (severe): Code(s): N18.4 - Chronic kidney disease, stage 4 (severe) Status: Acute Assessment and Plan: creatinine had been running around 3.5 - 3.6mg/dl earlier this year due to cardiovascular disease, CHF, liver cirrhosis and associated liver physiology, DIMITRIS/pulmonary HTN, and necessity of diuretics to maintain his volume status (3) Hyperkalemia: Code(s): E87.5 - Hyperkalemia Status: Acute Assessment and Plan: due to #1 worsened by outpatient use of spironolactone (and long half life with CKD) hold spironolactone medical management for now (4) Metabolic acidosis: Code(s): E87.2 - Acidosis Status: Acute Assessment and Plan: worsened by #1 start low dose bicarb fluids to compensate likely to also need oral sodium bicarbonate (5) Calculus of left ureter: Code(s): N20.1 - Calculus of ureter Status: Acute Assessment and Plan: s/p cystoscopy, retrograge pyelogram, and stent placement Urology following (6) Cirrhosis of liver with ascites: Qualifiers: Hepatic cirrhosis type: unspecified hepatic cirrhosis Qualified Code(s): K74.60 - Unspecified cirrhosis of liver; R18.8 - Other ascites Code(s): K74.60 - Unspecified cirrhosis of liver; R18.8 - Other ascites Status: Chronic Assessment and Plan: chronic condition s/p large volume paracentesis Gastroenterology following Will continue to follow. Subjective Date/time seen: 09/08/19 17:48 Appears comfortable and in no acute distress; seen by Gastroenterology with recommendations noted; no apparent distress voiced at the time of my visit. Exam Narrative: Exam Narrative: General: WD/WN male in NAD Heart: normal S1 and S2; no rub Lungs: clear to auscultation Abdomen: soft, mild TTP, mild distension, positive bowel sounds Extremities: no cyanosis or clubbing; 1+ edema Skin: warm and intact Objective Data Vital Signs Vital Signs: Vital Signs Temp Pulse Resp BP Pulse Ox 09/08/19 17:35 36.1 C L 57 L 16 140/50 L 93 09/08/19 17:15 35.8 C L 63 12 136/52 L 92 09/08/19 16:55 36.3 C L 61 16 143/60 H 91 09/08/19 16:36 36.4 C L 64 16 144/53 H 92 09/08/19 16:00 62 09/08/19 14:00 56 L 09/08/19 12:00 50 L 09/08/19 10:00 56 L 09/08/19 08:30 36.2 C L 68 12 141/53 H 91 09/08/19 08:00 62 09/08/19 06:00 60 09/08/19 04:00 37.1 C 63 18 135/77 91 09/08/19 02:00 66 09/08/19 00:00 36.8 C 64 18 135/60 92 09/07/19 22:16 56 L 18 95 09/07/19 22:00 65 09/07/19 20:00 65 09/07/19 18:00 37.0 C 65 18 132/51 L 93 Intake/Output Intake/Output: Intake & Output 09/05/19 09/06/19 09/07/19 09/08/19 23:59 23:59 23:59 23:59 Intake Total 50 2040 1630 1555 Output Total 300 5075 600 1000 Balance -250 -9630 1030 555 Meds/Results Medications: Active Medications Generic Name Dose Route Start Last Admin Trade Name Freq PRN Reason Stop Dose Admin Albuterol 1 puff 09/06/19 14:04 Proventil Hfa INHALATION Q4HRT PRN Shortness Of Breath Amlodipine Be
--- NOTE | 2019-09-08 18:41 | PC.NURSE ---
This patient, Naldo Lowry, was received from [facility] on 09/08/19 at 1841. Personal belongings list checked and signed. Patient/family oriented to unit policies and routines
--- NOTE | 2019-09-08 18:44 | PC.NURSE ---
This patient, Naldo Lowry, was transferred to [[id number] ] on 09/08/19 at 1840. Personal belongings sent with patient. Belongings list checked and signed with receiving [ ]. Report given to [Charity ]. Appropriate documentation sent with patient.
[2019-09-08 20:34] LABS: Hematocrit 25.4 % (42.0-52.0); Hemoglobin 8.5 g/dL (14.0-18.0)
[2019-09-08] MEDS: CLOPIDOGREL BISULFATE 75 MG TABLET PO (21:31)
[2019-09-08] MEDS: SIMVASTATIN 20 MG TABLET PO (21:31)
[2019-09-08] MEDS: BUMETANIDE 1 MG TABLET 2 MG PO (21:31)
[2019-09-08 23:28] LABS: Hematocrit 25.1 % (42.0-52.0); Hemoglobin 8.1 g/dL (14.0-18.0)
[2019-09-08 23:48] LABS: Glucose Point of Care 78 (65-105)
[2019-09-09 06:00] VITALS: BP 130/48; PULSE 58; RESP 16; TEMP 37.1; O2SAT 93
[2019-09-09] MEDS: HYDROMORPHONE HCL 1 MG/ML INJ 0.5 MG IV PUSH ×2 (06:04→22:56)
[2019-09-09 06:20] LABS: Basophils Percent Auto 0.5 % (0.2-1.2); Eosinophils Absolute Auto 0.9 K/mm3 (0-0.3); Eosinophils Percent Auto 10.1 % (0-4.4); Hematocrit 24.9 % (42.0-52.0); Hemoglobin 8.4 g/dL (14.0-18.0); Immature Granulocyte Absolute 0.07 K/mm3 (0.00-0.031); Immature Granulocyte Percent A 0.8 % (0-0.5); Lymphocytes Absolute Auto 0.33 K/mm3 (0.9-3.2); Lymphocytes Percent Auto 3.9 % (18.3-44.2); Mean Corpuscular HGB Conc 33.7 g/dl (32-36); Mean Corpuscular Hemoglobin 29.9 pg (26-34); Mean Corpuscular Volume 88.6 fl (80-100); Mean Platelet Volume 8.7 fl (7.4-10.4); Monocytes Percent Auto 11.9 % (2.6-8.5); Neutrophils Absolute Auto 6.2 K/mm3 (1.3-6.7); Neutrophils Percent Auto 72.8 % (45.5-73.1); Platelet Count Result 104 k/mm3 (150-375); Red Blood Count 2.81 M/mm3 (4.6-6.20); Red Cell Distribution Width 13.9 % (11.5-14.5); White Blood Count 8.6 K/mm3 (4.5-10.0)
[2019-09-09 06:26] LABS: Glucose Point of Care 99 (65-105)
[2019-09-09 06:36] LABS: Albumin Level 1.8 g/dL (3.5-5.1); Alkaline Phosphatase 64 U/L (38-126); Aspartate Amino Transferase 20 U/L (17-59); Bilirubin,Total 0.4 mg/dL (0.2-1.3); Blood Urea Nitrogen 70 mg/dL (9-20); Calcium 6.7 mg/dL (8.4-10.2); Carbon Dioxide 19 mmol/L (22-30); Chloride 105 mmol/L (98-107); Estimated CRCL calculation 13 ml/min; Estimated Glomerular Filt Rate 9; Glucose 76 mg/dL (75-110); Magnesium 2.4 mg/dL (1.6-2.3); Potassium 4.4 mmol/L (3.4-5.0); Sodium 130 mmol/L (137-145)
[2019-09-09 07:55] LABS: Alanine Aminotransferase < 4 U/L (4-50)
--- NOTE | 2019-09-09 09:29 | PM.IMPN ---
Progress Note: A&P Assessment and Plan (1) Acute renal failure superimposed on stage 4 chronic kidney disease: Code(s): N17.9 - Acute kidney failure, unspecified; N18.4 - Chronic kidney disease, stage 4 (severe) Status: Acute Assessment and Plan: He has an acute worsening of his stage IV CKD, thought to be postrenal secondary to hydronephrosis. However, now seems more likely that this may be progression of his CKD given lack of improvement following stent placement. Baseline creatinine appears to be 3.5. BUN is 70 and creatinine is 6.0 today. Nephrology has been consulted and their recommendations are greatly appreciated Avoid nephrotoxic agents and renally dose medications. Continue to monitor renal function closely. He will likely require dialysis in the future. (2) Ureteral stone with hydronephrosis: Code(s): N13.2 - Hydronephrosis with renal and ureteral calculous obstruction Status: Acute Assessment and Plan: He underwent left ureteral stent placement 09/06/[address] Finch. He appears to have tolerated procedure well and his pain is well controlled. He has a Arredondo catheter in place with evidence of hematuria likely secondary to stent. Urology is following the patient and their recommendations are appreciated. Continue bladder irrigation per Urology recommendations Continue analgesics as needed. Continue to monitor urine output via Arredondo catheter. He will require stone extraction at a later date (3) Hyperkalemia: Code(s): E87.5 - Hyperkalemia Status: Acute Assessment and Plan: Patient had hyperkalemia at presentation mostly likely related to his CKD and worsened with spironolactone therapy, which has since been discontinued. He has been treated with Kayexalate, calcium gluconate, insulin and dextrose, and sodium bicarbonate. Review of telemetry shows no evidence of arrhythmia. Potassium is stable at 4.4 today. Continue IV sodium bicarbonate. Continue to hold spironolactone Continue to monitor potassium levels closely. (4) Metabolic acidosis: Code(s): E87.2 - Acidosis Status: Acute Assessment and Plan: This is related to his acute on chronic renal failure. His CO2 has improved to 19 today. Appreciate nephrology recommendations Continue sodium bicarbonate IV. May need to add oral bicarb as well. Continue to monitor closely (5) Normocytic anemia: Code(s): D64.9 - Anemia, unspecified Status: Chronic Assessment and Plan: Iron panel is consistent with anemia of chronic disease. Hemoglobin was 8.0 at presentation, but did declined to 6.9 and he underwent transfusion of 1 unit PRBC on 09/08/2019. Stable at 8.4 and 24.9 respectively today. His vitals are stable and he is asymptomatic Continue to monitor H&H closely Transfuse as needed with hemoglobin threshold <7.0 (6) Cirrhosis of liver with ascites: Qualifiers: Hepatic cirrhosis type: unspecified hepatic cirrhosis Qualified Code(s): K74.60 - Unspecified cirrhosis of liver; R18.8 - Other ascites Code(s): K74.60 - Unspecified cirrhosis of liver; R18.8 - Other ascites Status: Chronic Assessment and Plan: He underwent paracentesis on 09/06/2019 which yielded 5000 mL cloudy brownish fluid. He reports he has been undergoing paracenteses weekly. He has significant ascites and lower extremity edema. Gastroenterology is on consult and recommendations are appreciated Continue to hold spironolactone given hyperkalemia. Continue Bumex Continue low-sodium diet. He may need to undergo repeat paracentesis in order to obtain lab studies He may be a candidate for tips procedure and will benefit from outpatient referral. Await results of culture from ascitic fluid Continue to monitor closely (7) Bilateral calf pain: Code(s): M79.661 - Pain in right lower leg; M79.662 - Pain in left lower leg Status: A
[2019-09-09] MEDS: SODIUM BICARBONATE 8.4% 75 MEQ in SODIUM CHLORIDE 0.45% 1,000 ML 50 MEQ IV CONT ×2 (09:39→11:55)
[2019-09-09] MEDS: AMLODIPINE BESYLATE 5 MG TABLET PO (09:39)
[2019-09-09] MEDS: ASPIRIN 81 MG CHEWABLE TABLET PO (09:39)
[2019-09-09] MEDS: hydrALAZINE HCL 50 MG TABLET PO ×3 (09:40→16:39)
[2019-09-09] MEDS: calcitrioL 0.25 MCG CAPSULE PO (09:40)
--- NOTE | 2019-09-09 09:47 | WPDGIPROGNO ---
Progress Note: A&P Assessment and Plan (1) Anasarca: Code(s): R60.1 - Generalized edema Status: Acute Assessment and Plan: Patient with diffuse edema. Most likely related underlying cirrhosis. Cannot exclude some component of nephrotic syndrome. Plan is for low-salt diet continue diuresis. (2) Cirrhosis of liver with ascites: Qualifiers: Hepatic cirrhosis type: unspecified hepatic cirrhosis Qualified Code(s): K74.60 - Unspecified cirrhosis of liver; R18.8 - Other ascites Code(s): K74.60 - Unspecified cirrhosis of liver; R18.8 - Other ascites Status: Chronic Assessment and Plan: Patient has had recalcitrant ascites. Recently has had weekly paracenteses. Plan is for low-salt diet. Continue diuretics. We will need to decrease frequency of paracenteses. If performed concomitant albumin infusion is advised. Repeat paracentesis for additional lab studies is suggested at this time. If additional paracenteses required referral to tertiary care center for nonurgent TIPS stenting is advised. (3) Nephrolithiasis: Code(s): N20.0 - Calculus of kidney Status: Acute (4) Hydronephrosis: Code(s): N13.30 - Unspecified hydronephrosis Status: Acute (5) Acute renal failure superimposed on stage 4 chronic kidney disease: Code(s): N17.9 - Acute kidney failure, unspecified; N18.4 - Chronic kidney disease, stage 4 (severe) Status: Acute (6) Chronic diastolic (congestive) heart failure: Code(s): I50.32 - Chronic diastolic (congestive) heart failure Status: Acute (7) Chronic kidney disease, stage IV (severe): Code(s): N18.4 - Chronic kidney disease, stage 4 (severe) Status: Acute Subjective Date/time seen: 09/09/19 09:47 Patient notes some pain in his left leg today. Continues to have abdominal swelling. Somewhat improved after paracentesis. Review of Systems Review of Systems: All systems reviewed & are unremarkable except as noted in HPI and below Exam Narrative: Exam Narrative: Physical exam reveals patient to be alert. Lungs are clear to auscultation percussion. Heart without murmur. Abdomen is obese. Abdomen may have some shifting dullness difficult to appreciate on exam. Extremities reveal 2 to3+ edema to above the knees. Objective Data Vital Signs Vital Signs: Vital Signs - 24 hr 09/08/19 10:00 09/08/19 12:00 09/08/19 14:00 Temperature Pulse Rate 56 L 50 L 56 L Respiratory Rate Blood Pressure Pulse Oximetry 09/08/19 16:00 09/08/19 16:36 09/08/19 16:55 Temperature 36.4 C L 36.3 C L Pulse Rate 62 64 61 Respiratory Rate 16 16 Blood Pressure 144/53 H 143/60 H Pulse Oximetry 92 91 09/08/19 17:15 09/08/19 17:35 09/08/19 18:50 Temperature 35.8 C L 36.1 C L 36.8 C Pulse Rate 63 57 L 59 L Respiratory Rate 12 16 20 Blood Pressure 136/52 L 140/50 L 178/64 H Pulse Oximetry 92 93 93 09/08/19 19:33 09/08/19 19:35 09/08/19 22:00 Temperature 35.9 C L 36.2 C L 36.7 C Pulse Rate 77 74 54 L Respiratory Rate 16 16 16 Blood Pressure 169/68 H 156/67 H 147/48 H Pulse Oximetry 100 99 93 09/09/19 06:00 Temperature 37.1 C Pulse Rate 58 L Respiratory Rate 16 Blood Pressure 130/48 L Pulse Oximetry 93 Intake/Output Intake/Output: Intake & Output 09/06/19 09/07/19 09/08/19 09/09/19 23:59 23:59 23:59 23:59 Intake Total 2040 1630 2144 1515 Output Total 5075 600 1000 850 Balance -3035 1030 1144 665 Meds/Results Medications: Active Medications Generic Name Dose Route Start Last Admin Trade Name Freq PRN Reason Stop Dose Admin Albuterol 1 puff 09/06/19 14:04 Proventil Hfa INHALATION Q4HRT PRN Shortness Of Breath Amlodipine Besylate 5 mg 09/07/19 09:00 09/09/19 09:39 Norvasc PO 5 mg DAILY NOÉ Administration Aspirin 81 mg 09/07/19 09:00 09/09/19 09:39 Aspirin Chewable PO 81 mg DAILY NOÉ Administration Bumetanide 2 mg 06
[2019-09-09 09:48] LABS: Glucose Point of Care 87 (65-105)
[2019-09-09 11:32] LABS: Glucose Point of Care 118 (65-105)
--- NOTE | 2019-09-09 11:36 | PCNFU ---
Nutrition Follow-Up Complete: Suboptimal oral intake related to decreased appetite as evidenced by patient statement and present NPO status. goal: Patient to meet estimated nutritional needs. Patient is meeting goal. Pt current nutrition is Low K/DBCC/2 gm Na . Nutrition recommendation: Agree Last recorded weight is 100.9 kg. Bowel Motility:+Bm reported 09/06 Labs Reviewed:Mg 2.4,Na 130,Alb 1.8,BUN 70,GFR 9 Meds Noted:Novolog, Dilaudid Additional Notes: Patient seen today, he states to no diet questions or concerns. He states food has been good, likes the coffee. Intake reported 100% of trays. He is also receiving Glucerna Shakes BID providing an additional 220 kcals and 10 gms protein. Monitoring: Follow up every 5 days.
[2019-09-09 14:00] VITALS: BP 122/50; PULSE 52; RESP 16; TEMP 36.3; O2SAT 96
--- NOTE | 2019-09-09 14:57 | PCOTNOTE ---
OT attempted initial eval this date. Pt stated he has 9/10 sharp pain in bilateral LE and is not able to tolerate any therapy or EOB activities this date. He asked OT to try again tomorrow.
--- NOTE | 2019-09-09 15:27 | PM.PNNEP ---
Progress Note: A&P Assessment and Plan (1) RENA (acute kidney injury): Code(s): N17.9 - Acute kidney failure, unspecified Status: Acute Assessment and Plan: though to be secondary to left ureteral stone and mild hydronephrosis - however, would have assumed that right kidney would have compensated for this - perhaps, given his advanced CKD at baseline, his right kidney was not able to adapt another concern would be there has been a component of kidney disease progression (which seems more likely) acidosis and hyperkalemia better controlled at this itme follow repeat labs and UOP I suspect the patient will eventually need renal replacement in the near future but no urgency at this time. (2) Chronic kidney disease, stage IV (severe): Code(s): N18.4 - Chronic kidney disease, stage 4 (severe) Status: Acute Assessment and Plan: creatinine had been running around 3.5 - 3.6mg/dl earlier this year due to cardiovascular disease, CHF, liver cirrhosis and associated liver physiology, DIMITRIS/pulmonary HTN, and necessity of diuretics to maintain his volume status (3) Hyperkalemia: Code(s): E87.5 - Hyperkalemia Status: Acute Assessment and Plan: due to #1 worsened by outpatient use of spironolactone (and long half life with CKD) hold spironolactone medical management for now (4) Metabolic acidosis: Code(s): E87.2 - Acidosis Status: Acute Assessment and Plan: worsened by #1 start low dose bicarb fluids to compensate likely to also need oral sodium bicarbonate (5) Calculus of left ureter: Code(s): N20.1 - Calculus of ureter Status: Acute Assessment and Plan: s/p cystoscopy, retrograge pyelogram, and stent placement Urology following (6) Cirrhosis of liver with ascites: Qualifiers: Hepatic cirrhosis type: unspecified hepatic cirrhosis Qualified Code(s): K74.60 - Unspecified cirrhosis of liver; R18.8 - Other ascites Code(s): K74.60 - Unspecified cirrhosis of liver; R18.8 - Other ascites Status: Chronic Assessment and Plan: chronic condition s/p large volume paracentesis Gastroenterology following Will continue to follow. Subjective Date/time seen: 09/09/19 15:27 Major complaint is that of bilateral calf pain making it difficult for him to ambulate; he also feels his abdomen is swelling up again making him feel uncomfortable; no acute distress noted. Exam Narrative: Exam Narrative: General: WD/WN male in NAD Heart: normal S1 and S2; no rub Lungs: clear to auscultation Abdomen: soft, mild TTP, mild distension, positive bowel sounds Extremities: no cyanosis or clubbing; 1+ edema Skin: warm and dry Objective Data Vital Signs Vital Signs: Vital Signs Temp Pulse Resp BP Pulse Ox 09/09/19 14:00 36.3 C L 52 L 16 122/50 L 96 09/09/19 06:00 37.1 C 58 L 16 130/48 L 93 09/08/19 22:00 36.7 C 54 L 16 147/48 H 93 09/08/19 19:35 36.2 C L 74 16 156/67 H 99 09/08/19 19:33 35.9 C L 77 16 169/68 H 100 09/08/19 18:50 36.8 C 59 L 20 178/64 H 93 09/08/19 17:35 36.1 C L 57 L 16 140/50 L 93 09/08/19 17:15 35.8 C L 63 12 136/52 L 92 09/08/19 16:55 36.3 C L 61 16 143/60 H 91 09/08/19 16:36 36.4 C L 64 16 144/53 H 92 09/08/19 16:00 62 Intake/Output Intake/Output: Intake & Output 09/06/19 09/07/19 09/08/19 09/09/19 23:59 23:59 23:59 23:59 Intake Total 2040 1630 2144 2830 Output Total 5075 600 1000 850 Balance -3035 1030 1144 1979 Meds/Results Medications: Active Medications Generic Name Dose Route Start Last Admin Trade Name Freq PRN Reason Stop Dose Admin Albuterol 1 puff 09/06/19 14:04 Proventil Hfa INHALATION Q4HRT PRN Shortness Of Breath Amlodipine Besylate 5 mg 09/07/19 09:00 09/09/19 09:39 Norvasc PO 5 mg DAILY NOÉ Administration Aspirin 81 mg 09/07/19 09:00
[2019-09-09 16:38] LABS: Glucose Point of Care 107 (65-105)
[2019-09-09] MEDS: BUMETANIDE 1 MG TABLET 2 MG PO (21:13)
[2019-09-09] MEDS: CLOPIDOGREL BISULFATE 75 MG TABLET PO (21:14)
[2019-09-09] MEDS: SIMVASTATIN 20 MG TABLET PO (21:14)
[2019-09-09 22:00] VITALS: BP 139/49; PULSE 55; RESP 16; TEMP 36.9; O2SAT 93
[2019-09-10 00:03] LABS: Glucose Point of Care 107 (65-105)
[2019-09-10 06:00] VITALS: BP 135/48; PULSE 65; RESP 16; TEMP 37.1; O2SAT 95
[2019-09-10 08:00] LABS: Glucose Point of Care 82 (65-105)
[2019-09-10] MEDS: calcitrioL 0.25 MCG CAPSULE PO (09:31)
[2019-09-10] MEDS: AMLODIPINE BESYLATE 5 MG TABLET PO (09:31)
[2019-09-10] MEDS: polyethylene glycoL 3350 17 GM POWD.PACK PO (09:31)
[2019-09-10] MEDS: ASPIRIN 81 MG CHEWABLE TABLET PO (09:31)
[2019-09-10] MEDS: hydrALAZINE HCL 50 MG TABLET PO ×3 (09:31→17:38)
[2019-09-10] MEDS: HYDROMORPHONE HCL 1 MG/ML INJ 0.5 MG IV PUSH (09:36)
--- NOTE | 2019-09-10 09:44 | PCOTNOTE ---
Ot evaluation attempted. Patient refusing at this time secondary to dizziness and feeling unwell. Patient agreeable to attempting OT evaluation at later time.
--- NOTE | 2019-09-10 09:44 | PCPTNOTE ---
PT evaluation attempted. Patient refusing to get out of bed secondary to dizziness. Patient agreeable to try again at a later time.
[2019-09-10 10:27] LABS: Hematocrit 25.4 % (42.0-52.0); Hemoglobin 8.4 g/dL (14.0-18.0); Mean Corpuscular HGB Conc 33.1 g/dl (32-36); Mean Corpuscular Volume 87.6 fl (80-100); Mean Platelet Volume 9.2 fl (7.4-10.4); Platelet Count Result 122 k/mm3 (150-375); Red Cell Distribution Width 13.6 % (11.5-14.5); White Blood Count 8.1 K/mm3 (4.5-10.0)
[2019-09-10 10:38] LABS: Blood Urea Nitrogen 69 mg/dL (9-20); Calcium 6.7 mg/dL (8.4-10.2); Carbon Dioxide 20 mmol/L (22-30); Chloride 104 mmol/L (98-107); Estimated CRCL calculation 13 ml/min; Estimated Glomerular Filt Rate 9; Glucose 98 mg/dL (75-110); Potassium 4.1 mmol/L (3.4-5.0); Sodium 130 mmol/L (137-145)
[2019-09-10 11:31] LABS: Glucose Point of Care 96 (65-105)
--- NOTE | 2019-09-10 11:47 | PM.IMPN ---
Progress Note: A&P Assessment and Plan (1) Acute renal failure superimposed on stage 4 chronic kidney disease: Code(s): N17.9 - Acute kidney failure, unspecified; N18.4 - Chronic kidney disease, stage 4 (severe) Status: Acute Assessment and Plan: He has an acute worsening of his stage IV CKD, thought to be postrenal secondary to hydronephrosis. However, now seems more likely that this may be progression of his CKD given lack of improvement following stent placement. Baseline creatinine appears to be 3.5. BUN is 69 and creatinine is 6.1 today. Nephrology has been consulted and their recommendations are greatly appreciated Avoid nephrotoxic agents and renally dose medications. Continue to monitor renal function closely. He will likely require dialysis in the future. (2) Ureteral stone with hydronephrosis: Code(s): N13.2 - Hydronephrosis with renal and ureteral calculous obstruction Status: Acute Assessment and Plan: He underwent left ureteral stent placement 09/06/[address] Finch. He tolerated the procedure well and his pain is well controlled. He has a Arredondo catheter in place with evidence of hematuria previously which has improved with irrigation. Urology is following the patient and their recommendations are appreciated. Continue bladder irrigation per Urology recommendations Continue analgesics as needed. Continue to monitor urine output via Arredondo catheter. He will require stone extraction at a later date (3) Hyperkalemia: Code(s): E87.5 - Hyperkalemia Status: Acute Assessment and Plan: Patient had hyperkalemia at presentation mostly likely related to his CKD and worsened with spironolactone therapy, which has since been discontinued. He has been treated with Kayexalate, calcium gluconate, insulin and dextrose, and sodium bicarbonate. Review of telemetry shows no evidence of arrhythmia. Potassium is stable at 4.1 today. Plan to resume spironolactone per GI recommendations. Continue to monitor potassium levels closely. (4) Metabolic acidosis: Code(s): E87.2 - Acidosis Status: Acute Assessment and Plan: This is related to his acute on chronic renal failure. His CO2 has improved to 20 today. Appreciate nephrology recommendations IV sodium bicarb has been discontinued Continue to monitor closely (5) Normocytic anemia: Code(s): D64.9 - Anemia, unspecified Status: Chronic Assessment and Plan: Iron panel is consistent with anemia of chronic disease. Hemoglobin was 8.0 at presentation, but did declined to 6.9 and he underwent transfusion of 1 unit PRBC on 09/08/2019. Stable at 8.4 and 25.4 respectively today. His vitals are stable and he is asymptomatic Continue to monitor H&H closely Transfuse as needed with hemoglobin threshold <7.0 (6) Cirrhosis of liver with ascites: Qualifiers: Hepatic cirrhosis type: unspecified hepatic cirrhosis Qualified Code(s): K74.60 - Unspecified cirrhosis of liver; R18.8 - Other ascites Code(s): K74.60 - Unspecified cirrhosis of liver; R18.8 - Other ascites Status: Chronic Assessment and Plan: He underwent paracentesis on 09/06/2019 which yielded 5000 mL cloudy brownish fluid. He reports he has been undergoing paracenteses weekly. He has significant ascites and lower extremity edema. Gastroenterology is has been consulted and recommendations are appreciated Resume spironolactone increased dose of 25 mg BID Continue Bumex Continue low-sodium diet. Will order small volume diagnostic paracentesis to evaluate ascitic fluid. Will check Gram stain, cell count, cultures, cytology, and chemistries Continue to monitor closely (7) Bilateral calf pain: Code(s): M79.661 - Pain in right lower leg; M79.662 - Pain in left lower leg Status: Acute Assessment and Plan: He complains of sharp, stabbing bilateral calf pain
--- NOTE | 2019-09-10 12:33 | WPDGIPROGNO ---
Progress Note: A&P Assessment and Plan (1) Anemia: Code(s): D64.9 - Anemia, unspecified Status: Acute (2) Anasarca: Code(s): R60.1 - Generalized edema Status: Acute (3) Hematuria: Code(s): R31.9 - Hematuria, unspecified Status: Acute (4) Chronic kidney disease, stage IV (severe): Code(s): N18.4 - Chronic kidney disease, stage 4 (severe) Status: Acute (5) Hypertension: Qualifiers: Hypertension type: essential hypertension Qualified Code(s): I10 - Essential (primary) hypertension Code(s): I10 - Essential (primary) hypertension Status: Acute (6) Cirrhosis of liver with ascites: Qualifiers: Hepatic cirrhosis type: unspecified hepatic cirrhosis Qualified Code(s): K74.60 - Unspecified cirrhosis of liver; R18.8 - Other ascites Code(s): K74.60 - Unspecified cirrhosis of liver; R18.8 - Other ascites Status: Chronic Assessment and Plan: Patient continues to feel uncomfortable with ascites. This is somewhat expected. Plan is to continue low-salt diet. Would restart Aldactone in conjunction with either Bumex are Lasix. Continue mentor electrolytes daily weights and blood pressure. I would defer ab large volume abdominal paracenteses unless ascites affect patient's respiratory status. Diagnostic paracentesis will be performed. To further define whether infection could be present. Previous gram stain apparently was canceled. I have discussed this with LILA Porter who agrees. Plan is as stated to restart diuretics continue daily weights monitor electrolytes. Should patient's ascites truly be recalcitrant then referral for TIPS procedure advised. (7) Nephrolithiasis: Code(s): N20.0 - Calculus of kidney Status: Acute (8) Hydronephrosis: Code(s): N13.30 - Unspecified hydronephrosis Status: Acute Subjective Date/time seen: 09/10/19 12:33 Patient continues to complain of vague abdominal discomfort. Review of Systems Review of Systems: All systems reviewed & are unremarkable except as noted in HPI and below Exam Narrative: Exam Narrative: Physical exam reveals patient to be alert. In general is comfortable. Lungs are clear. Heart without murmur. Abdomen is obese. Modest distention noted. But minimal localized tenderness. Extremities with 2+ edema peripherally. Objective Data Vital Signs Vital Signs: Vital Signs - 24 hr 09/09/19 14:00 09/09/19 22:00 09/10/19 06:00 Temperature 36.3 C L 36.9 C 37.1 C Pulse Rate 52 L 55 L 65 Respiratory Rate 16 16 16 Blood Pressure 122/50 L 139/49 L 135/48 L Pulse Oximetry 96 93 95 Intake/Output Intake/Output: Intake & Output 09/07/19 09/08/19 09/09/19 09/10/19 23:59 23:59 23:59 23:59 Intake Total 1630 2144 3606 1060 Output Total 600 1000 1200 800 Balance 1030 1144 2406 260 Meds/Results Medications: Active Medications Generic Name Dose Route Start Last Admin Trade Name Freq PRN Reason Stop Dose Admin Albuterol 1 puff 09/06/19 14:04 Proventil Hfa INHALATION Q4HRT PRN Shortness Of Breath Amlodipine Besylate 5 mg 09/07/19 09:00 09/10/19 09:31 Norvasc PO 5 mg DAILY NOÉ Administration Aspirin 81 mg 09/07/19 09:00 09/10/19 09:31 Aspirin Chewable PO 81 mg DAILY NOÉ Administration Bumetanide 2 mg 09/06/19 21:00 09/09/19 21:13 Bumex Po PO 2 mg HS NOÉ Administration Calcitriol 0.25 mcg 09/07/19 09:00 09/10/19 09:31 Rocaltrol PO 0.25 mcg DAILY NOÉ Administration Clopidogrel Bisulfate 75 mg 09/06/19 21:00 09/09/19 21:14 Plavix PO 75 mg HS NOÉ Administration Dextrose 12.5 gm 09/06/19 04:12 Dextrose 50% Syringe IV PUSH PRN PRN Hypoglycemia Protocol Fentanyl Citrate 25 mcg 09/06/19 11:44 09/06/19 13:46 Sublimaze IV PUSH 25 mcg Q2M PRN Administration Pain Glucagon 1 mg 09/06/19 04:12 Glucagon For Inj IM P
--- NOTE | 2019-09-10 12:59 | PCPTNOTE ---
Attempted PT evaluation. Pt states he's more dizzy now than he was tomorrow. Declined getting up to sit in a chair. States he wants to stay in bed and to come back tomorrow.
--- NOTE | 2019-09-10 12:59 | PCOTNOTE ---
Attempted OT evaluation, pt reports being to dizzy and in to much pain to get up at this time. Will attempt OT evaluation at later time.
[2019-09-10 14:00] VITALS: BP 134/52; PULSE 61; RESP 16; TEMP 36.5; O2SAT 95
--- NOTE | 2019-09-10 14:00 | PC.NURSE ---
Received call from radiology. Per Dr. Gibbons, patient will have to be off his Plavix from now until at least Friday before he can safely have a paracentesis. Notified Cristy SHARP of this information. She states she will call Dr. Gibbons and discuss the plans with him further.
[2019-09-10] MEDS: EUCERIN CREAM 120 GM JAR 1 APPLIC TOPICAL (14:27)
--- NOTE | 2019-09-10 15:10 | P.PNNP_ITS ---
Progress Note: A&P Assessment and Plan (1) RENA (acute kidney injury): Code(s): N17.9 - Acute kidney failure, unspecified Status: Acute Assessment and Plan: * though to be secondary to left ureteral stone and mild hydronephrosis - however, would have assumed that right kidney would have compensated for this - perhaps, given his advanced CKD at baseline, his right kidney was not able to adapt * another concern would be there has been a component of kidney disease progres korey (which seems more likely) * acidosis and hyperkalemia better controlled at this time * follow repeat labs and UOP * I suspect the patient will eventually need renal replacement in the near future but no urgency at this time (2) Chronic kidney disease, stage IV (severe): Code(s): N18.4 - Chronic kidney disease, stage 4 (severe) Status: Acute Assessment and Plan: * creatinine had been running around 3.5 - 3.6mg/dl earlier this year * due to cardiovascular disease, CHF, liver cirrhosis and associated liver physiology, DIMITRIS/pulmonary HTN, and necessity of diuretics to maintain his volume status (3) Hyperkalemia: Code(s): E87.5 - Hyperkalemia Status: Acute Assessment and Plan: * due to #1 worsened by outpatient use of spironolactone (and long half life with CKD) * spironolactone resumed -- follow K+ closely * hopefully concomitant use of loop diuretics (bumex) should keep K+ stable * follow trend (4) Metabolic acidosis: Code(s): E87.2 - Acidosis Status: Acute Assessment and Plan: * worsened by #1 * s/p bicarb fluids to compensate * likely to also need oral sodium bicarbonate (but hesitant to give him any more sodium products) (5) Calculus of left ureter: Code(s): N20.1 - Calculus of ureter Status: Acute Assessment and Plan: * s/p cystoscopy, retrograge pyelogram, and stent placement * Urology following (6) Cirrhosis of liver with ascites: Qualifiers: Hepatic cirrhosis type: unspecified hepatic cirrhosis Qualified Code(s): K74.60 - Unspecified cirrhosis of liver; R18.8 - Other ascites Code(s): K74.60 - Unspecified cirrhosis of liver; R18.8 - Other ascites Status: Chronic Assessment and Plan: * chronic condition * s/p large volume paracentesis * Gastroenterology following * possible need for TIPS Will continue to follow. Subjective Date/time seen: 09/10/19 15:10 Feels abdomen if more firm and lower extremity edema has worsened; diuretics adjusted and plan diagnosistic paracentesis; making urine with diuretics (bumex + spironolactone); no other acute complaints voiced. Exam Narrative: Exam Narrative: General: WD/WN male in NAD Heart: normal S1 and S2; no rub Lungs: clear to auscultation Abdomen: soft, mild TTP, mild distension, positive bowel sounds Extremities: no cyanosis or clubbing; 1+ edema Skin: some weeping noted Objective Data Vital Signs Vital Signs: Vital Signs Temp Pulse Resp BP Pulse Ox 09/10/19 06:00 37.1 C 65 16 135/48 L 95 09/09/19 22:00 36.9 C 55 L 16 139/49 L 93 Intake/Output Intake/Output: Intake & Output 09/07/19 09/08/19 09/09/19 09/10/19 23:59 23:59 23:59 23:59 Intake Total 1630 2144 3606 1060 Output Total 600 1000 1200 800 Balance 1030 1144 2406 260 Meds
--- NOTE | 2019-09-10 15:10 | PM.PNNEP ---
Progress Note: A&P Assessment and Plan (1) RENA (acute kidney injury): Code(s): N17.9 - Acute kidney failure, unspecified Status: Acute Assessment and Plan: though to be secondary to left ureteral stone and mild hydronephrosis - however, would have assumed that right kidney would have compensated for this - perhaps, given his advanced CKD at baseline, his right kidney was not able to adapt another concern would be there has been a component of kidney disease progression (which seems more likely) acidosis and hyperkalemia better controlled at this time follow repeat labs and UOP I suspect the patient will eventually need renal replacement in the near future but no urgency at this time (2) Chronic kidney disease, stage IV (severe): Code(s): N18.4 - Chronic kidney disease, stage 4 (severe) Status: Acute Assessment and Plan: creatinine had been running around 3.5 - 3.6mg/dl earlier this year due to cardiovascular disease, CHF, liver cirrhosis and associated liver physiology, DIMITRIS/pulmonary HTN, and necessity of diuretics to maintain his volume status (3) Hyperkalemia: Code(s): E87.5 - Hyperkalemia Status: Acute Assessment and Plan: due to #1 worsened by outpatient use of spironolactone (and long half life with CKD) spironolactone resumed -- follow K+ closely hopefully concomitant use of loop diuretics (bumex) should keep K+ stable follow trend (4) Metabolic acidosis: Code(s): E87.2 - Acidosis Status: Acute Assessment and Plan: worsened by #1 s/p bicarb fluids to compensate likely to also need oral sodium bicarbonate (but hesitant to give him any more sodium products) (5) Calculus of left ureter: Code(s): N20.1 - Calculus of ureter Status: Acute Assessment and Plan: s/p cystoscopy, retrograge pyelogram, and stent placement Urology following (6) Cirrhosis of liver with ascites: Qualifiers: Hepatic cirrhosis type: unspecified hepatic cirrhosis Qualified Code(s): K74.60 - Unspecified cirrhosis of liver; R18.8 - Other ascites Code(s): K74.60 - Unspecified cirrhosis of liver; R18.8 - Other ascites Status: Chronic Assessment and Plan: chronic condition s/p large volume paracentesis Gastroenterology following possible need for TIPS Will continue to follow. Subjective Date/time seen: 09/10/19 15:10 Feels abdomen if more firm and lower extremity edema has worsened; diuretics adjusted and plan diagnosistic paracentesis; making urine with diuretics (bumex + spironolactone); no other acute complaints voiced. Exam Narrative: Exam Narrative: General: WD/WN male in NAD Heart: normal S1 and S2; no rub Lungs: clear to auscultation Abdomen: soft, mild TTP, mild distension, positive bowel sounds Extremities: no cyanosis or clubbing; 1+ edema Skin: some weeping noted Objective Data Vital Signs Vital Signs: Vital Signs Temp Pulse Resp BP Pulse Ox 09/10/19 06:00 37.1 C 65 16 135/48 L 95 09/09/19 22:00 36.9 C 55 L 16 139/49 L 93 Intake/Output Intake/Output: Intake & Output 09/07/19 09/08/19 09/09/19 09/10/19 23:59 23:59 23:59 23:59 Intake Total 1630 2144 3606 1060 Output Total 600 1000 1200 800 Balance 1030 1144 2406 260 Meds/Results Medications: Active Medications Generic Name Dose Route Start Last Admin Trade Name Freq PRN Reason Stop Dose Admin Hydrocodone Bitart/Acetaminophen 1 tab 09/10/19 14:59 [place] 5-325 Mg PO Q6H PRN Pain Rated 4-6 Albuterol 1 puff 09/06/19 14:04 Proventil Hfa INHALATION Q4HRT PRN Shortness Of Breath Amlodipine Besylate 5 mg 09/07/19 09:00 09/10/19 09:31 Norvasc PO 5 mg DAILY NOÉ Administration Aspirin 81 mg 09/07/19 09:00 09/10/19 09:31 Aspirin Chewable PO 81 mg DAILY NOÉ Administration Bumetanide 2 mg 09/06/19 21:00 09/09/19 21:13 [place]
--- NOTE | 2019-09-10 15:33 | PC.NURSE ---
Patient encouraged to allow turning side to side - every 2 hours. Patient usually allows us to apply lotion to back and inspect skin but does not want to be turned but wants to be put back onto his back. Discussed the importance of turning off of his buttocks and rotating side to side. Patient verbalizes his understanding. Weeping noted to right arm. Chux placed under right arm to keep bedding dry.
[2019-09-10 16:49] LABS: Glucose Point of Care 110 (65-105)
[2019-09-10] MEDS: SPIRONOLACTONE 50 MG TABLET PO (17:38)
[2019-09-10] MEDS: BUMETANIDE 1 MG TABLET 2 MG PO (20:50)
[2019-09-10] MEDS: SIMVASTATIN 20 MG TABLET PO (20:50)
[2019-09-10 21:44] LABS: Glucose Point of Care 104 (65-105)
[2019-09-10 22:00] VITALS: BP 134/51; PULSE 67; RESP 16; TEMP 36.9; O2SAT 96
[2019-09-11 05:15] LABS: Hematocrit 24.6 % (42.0-52.0); Hemoglobin 8.2 g/dL (14.0-18.0); Mean Corpuscular HGB Conc 33.3 g/dl (32-36); Mean Corpuscular Hemoglobin 29.2 pg (26-34); Mean Corpuscular Volume 87.5 fl (80-100); Mean Platelet Volume 9.3 fl (7.4-10.4); Platelet Count Result 114 k/mm3 (150-375); Red Blood Count 2.81 M/mm3 (4.6-6.20); Red Cell Distribution Width 13.4 % (11.5-14.5); White Blood Count 7.9 K/mm3 (4.5-10.0)
[2019-09-11 05:29] LABS: Albumin Level 1.8 g/dL (3.5-5.1); Alkaline Phosphatase 65 U/L (38-126); Aspartate Amino Transferase 16 U/L (17-59); Bilirubin,Total 0.2 mg/dL (0.2-1.3); Blood Urea Nitrogen 71 mg/dL (9-20); Calcium 6.8 mg/dL (8.4-10.2); Carbon Dioxide 18 mmol/L (22-30); Chloride 104 mmol/L (98-107); Estimated CRCL calculation 12 ml/min; Estimated Glomerular Filt Rate 9; Glucose 80 mg/dL (75-110); Potassium 4.1 mmol/L (3.4-5.0); Sodium 131 mmol/L (137-145)
[2019-09-11 05:32] LABS: Alanine Aminotransferase < 4 U/L (4-50)
[2019-09-11 06:00] VITALS: BP 121/48; PULSE 60; RESP 18; TEMP 37.1; O2SAT 96
[2019-09-11 07:55] LABS: Glucose Point of Care 82 (65-105)
--- NOTE | 2019-09-11 08:47 | WPDGIPROGNO ---
Progress Note: A&P Additional Plan Patient reports abdominal fullness. Tolerating diet. He states his legs are less swollen. Physical exam reveals him to be alert. Vital signs stable. He is afebrile. Lungs are clear. Heart without murmur. Abdomen is obese. Somewhat distended. But soft abdomen no significant tenderness. Extremities with 2+ edema below the ankles. Leg wraps are noted. Labs reveal hemoglobin 8.2, hematocrit 24, MCV 87. AST 16, ALT less than 4, alk-phos 65. Bilirubin 0.2, ammonia less than 9. Albumin 1.8, lipase 38. Impression 1. Cirrhosis of the liver. Attributed to BURROWS. Plan is for supportive care. Patient does have ascites. And peripheral edema. 2. Ascites. Plan is for low-salt diet. Continue diuretics. Monitor electrolytes and renal function. Daily weights encourage. Low-salt diet. Try to avoid excessive paracentesis at this time. Diagnostic paracentesis will be performed however to exclude infection. 3. Acute on chronic renal failure. BUN 71, creatinine 6.3. Nephrology service following. 4. Ureteral stone and stenting. Subjective Date/time seen: 09/11/19 08:47 Objective Data Vital Signs Vital Signs: Vital Signs - 24 hr 09/10/19 14:00 09/10/19 22:00 09/11/19 06:00 Temperature 36.5 C 36.9 C 37.1 C Pulse Rate 61 67 60 Respiratory Rate 16 16 18 Blood Pressure 134/52 L 134/51 L 121/48 L Pulse Oximetry 95 96 96 Intake/Output Intake/Output: Intake & Output 09/08/19 09/09/19 09/10/19 09/11/19 23:59 23:59 23:59 23:59 Intake Total 2144 3606 1300 300 Output Total 1000 1200 1300 450 Balance 1144 2406 0 -150 Meds/Results Medications: Active Medications Generic Name Dose Route Start Last Admin Trade Name Freq PRN Reason Stop Dose Admin Hydrocodone Bitart/Acetaminophen 1 tab 09/10/19 14:59 09/11/19 05:15 [place] 5-325 Mg PO 1 tab Q6H PRN Administration Pain Rated 4-6 Albuterol 1 puff 09/06/19 14:04 Proventil Hfa INHALATION Q4HRT PRN Shortness Of Breath Amlodipine Besylate 5 mg 09/07/19 09:00 09/10/19 09:31 Norvasc PO 5 mg DAILY NOÉ Administration Aspirin 81 mg 09/07/19 09:00 09/10/19 09:31 Aspirin Chewable PO 81 mg DAILY NOÉ Administration Bumetanide 2 mg 09/06/19 21:00 09/10/19 20:50 Bumex Po PO 2 mg HS NOÉ Administration Calcitriol 0.25 mcg 09/07/19 09:00 09/10/19 09:31 Rocaltrol PO 0.25 mcg DAILY NOÉ Administration Clopidogrel Bisulfate 75 mg 09/06/19 21:00 09/09/19 21:14 Plavix PO 75 mg HS NOÉ Administration Dextrose 12.5 gm 09/06/19 04:12 Dextrose 50% Syringe IV PUSH PRN PRN Hypoglycemia Protocol Glucagon 1 mg 09/06/19 04:12 Glucagon For Inj IM PRN PRN Hypoglycemia Protocol Hydralazine HCl 50 mg 09/06/19 14:04 09/10/19 17:38 Apresoline Tablet PO 50 mg TID NOÉ Administration Dextrose 1,000 mls @ 100 mls/hr 09/06/19 04:12 Dextrose 5% 1,000 Ml IVPB PRN PRN Hypoglycemia Protocol Insulin Aspart 2 - 5 units 09/09/19 17:00 09/11/19 08:03 Novolog SUB-Q Not Given TIDWM NOÉ Protocol Multi-Ingred Cream/Lotion/Oil/Oint 1 applic 09/10/19 09:00 09/10/19 14:27 Minerin Creme TOPICAL 1 applic QAM NOÉ Administration Ondansetron HCl 4 mg 09/06/19 11:44 Zofran Inj IV PUSH ONCE PRN Nausea Polyethylene Glycol 17 gm 09/09/19 09:00 09/10/19 09:31 Miralax PO 17 gm QAM NOÉ Administration Promethazine HCl 12.5 mg 09/05/19 22:25 09/07/19 09:11 Phenergan Inj IV PUSH 12.5 mg Q6H PRN Administration Nausea Silicone 1 each 09/10/19 09:00 09/10/19 13:51 Mepilex Border 4x4 TOPICAL 1 each DAILY NOÉ Administration Silicone 1 each 09/10/19 09:00 09/10/19 13:51 Mepilex Border 4x4 TOPICAL 1 each DAILY NOÉ Administration Simvastatin 20 mg 09/06/19 21:00 09/10/19 20:50 Zocor PO 20 mg HS NOÉ Administration Spironolactone
[2019-09-11] MEDS: hydrALAZINE HCL 50 MG TABLET PO ×3 (08:54→16:39)
[2019-09-11] MEDS: ASPIRIN 81 MG CHEWABLE TABLET PO (08:54)
[2019-09-11] MEDS: AMLODIPINE BESYLATE 5 MG TABLET PO (08:55)
[2019-09-11] MEDS: calcitrioL 0.25 MCG CAPSULE PO (08:55)
[2019-09-11] MEDS: SPIRONOLACTONE 50 MG TABLET PO ×2 (08:55→16:39)
[2019-09-11] MEDS: EUCERIN CREAM 120 GM JAR 1 APPLIC TOPICAL (08:56)
--- NOTE | 2019-09-11 11:41 | PM.IMPN ---
Progress Note: A&P Assessment and Plan (1) Acute renal failure superimposed on stage 4 chronic kidney disease: Code(s): N17.9 - Acute kidney failure, unspecified; N18.4 - Chronic kidney disease, stage 4 (severe) Status: Acute Assessment and Plan: He has an acute worsening of his stage IV CKD, initially thought to be postrenal secondary to hydronephrosis. However, now seems more likely that this may be progression of his CKD given lack of improvement following stent placement. Baseline creatinine appears to be 3.5. BUN is 71 and creatinine is 6.3 today. Nephrology has been consulted and their recommendations are greatly appreciated Avoid nephrotoxic agents and renally dose medications. Continue to monitor renal function closely. He will likely require dialysis in the future. (2) Ureteral stone with hydronephrosis: Code(s): N13.2 - Hydronephrosis with renal and ureteral calculous obstruction Status: Acute Assessment and Plan: He underwent left ureteral stent placement 09/06/[address] Finch. He tolerated the procedure well and his pain is well controlled. He has a Arredondo catheter in place with evidence of hematuria which has improved with irrigation, however urine is still brownish. Urology is following the patient and their recommendations are appreciated. Continue bladder irrigation per Urology recommendations Continue analgesics as needed. Continue to monitor urine output via Arredondo catheter. He will require stone extraction at a later date (3) Hyperkalemia: Code(s): E87.5 - Hyperkalemia Status: Acute Assessment and Plan: Patient had hyperkalemia at presentation mostly likely related to his CKD and worsened with spironolactone therapy. He has been treated with Kayexalate, calcium gluconate, insulin and dextrose, and sodium bicarbonate. Review of telemetry shows no evidence of arrhythmia. Potassium is stable at 4.1 today. Spironolactone was resumed on 09/09 for diuresis, and risk of hyperkalemia is noted Continue to monitor potassium levels closely. (4) Metabolic acidosis: Code(s): E87.2 - Acidosis Status: Acute Assessment and Plan: This is related to his acute on chronic renal failure. This has improved with IV bicarb. CO2 was 18 today. Appreciate nephrology recommendations Continue to monitor closely (5) Normocytic anemia: Code(s): D64.9 - Anemia, unspecified Status: Chronic Assessment and Plan: Iron panel is consistent with anemia of chronic disease. Hemoglobin was 8.0 at presentation, but did declined to 6.9 and he underwent transfusion of 1 unit pRBC on 09/08/2019. Stable at 8.2 and 24.6 respectively today. His vitals are stable and he is asymptomatic Continue to monitor H&H closely Transfuse as needed with hemoglobin threshold <7.0 (6) Cirrhosis of liver with ascites: Qualifiers: Hepatic cirrhosis type: unspecified hepatic cirrhosis Qualified Code(s): K74.60 - Unspecified cirrhosis of liver; R18.8 - Other ascites Code(s): K74.60 - Unspecified cirrhosis of liver; R18.8 - Other ascites Status: Chronic Assessment and Plan: He underwent paracentesis on 09/06/2019 which yielded 5000 mL cloudy brownish fluid. He reports he has been undergoing paracenteses weekly. He has significant ascites. Gastroenterology has been consulted and recommendations are appreciated Continue spironolactone at increased dose of 50 mg BID. Monitor potassium closely. Continue Bumex Continue low-sodium diet. Plan for small volume diagnostic paracentesis to evaluate ascitic fluid. Will check Gram stain, cell count, cultures, cytology, and chemistries. Plavix is currently being held in order to complete paracentesis on 09/12. Continue to monitor closely (7) Bilateral calf pain: Code(s): M79.661 - Pain in right lower leg; M79.662 - Pain in left lower leg Status: Acu
[2019-09-11] MEDS: SENNA/DOCUSATE SODIUM TABLET 1 TAB PO (12:24)
[2019-09-11 12:30] LABS: Glucose Point of Care 93 (65-105)
[2019-09-11 14:00] VITALS: BP 109/44; PULSE 52; RESP 18; TEMP 36.3; O2SAT 95
[2019-09-11 16:49] LABS: Glucose Point of Care 87 (65-105)
--- NOTE | 2019-09-11 16:59 | P.PNNP_ITS ---
Progress Note: A&P Assessment and Plan (1) RENA (acute kidney injury): Code(s): N17.9 - Acute kidney failure, unspecified Status: Acute Assessment and Plan: * though to be secondary to left ureteral stone and mild hydronephrosis - however, would have assumed that right kidney would have compensated for this - perhaps, given his advanced CKD at baseline, his right kidney was not able to adapt * another concern would be there has been a component of kidney disease progres korey (which seems more likely) * acidosis and hyperkalemia better controlled at this time * follow repeat labs and UOP * I suspect the patient will eventually need renal replacement in the near future but no urgency at this time (making urine, relatively stable electrolytes, no signs/symptoms of uremia) but somewhat concerning that creatinine continues to rise (2) Chronic kidney disease, stage IV (severe): Code(s): N18.4 - Chronic kidney disease, stage 4 (severe) Status: Acute Assessment and Plan: * creatinine had been running around 3.5 - 3.6mg/dl earlier this year * due to cardiovascular disease, CHF, liver cirrhosis and associated liver physiology, DIMITRIS/pulmonary HTN, and necessity of diuretics to maintain his volume status * he has expressed interest in peritoneal dialysis when dialysis is needed - this would help with his ascites but not his underlying liver disease - unfortunately, no surgeon here at [facility] places PD catheter - if dialysis needed while hospitalized, he would need to be initiated on hemodialysis (3) Hyperkalemia: Code(s): E87.5 - Hyperkalemia Status: Acute Assessment and Plan: * due to #1 worsened by outpatient use of spironolactone (and long half life with CKD) * spironolactone resumed -- follow K+ closely * hopefully concomitant use of loop diuretics (bumex) should keep K+ stable * follow trend (4) Metabolic acidosis: Code(s): E87.2 - Acidosis Status: Acute Assessment and Plan: * worsened by #1 * s/p bicarb fluids to compensate * likely to also need oral sodium bicarbonate (but hesitant to give him any more sodium products) (5) Calculus of left ureter: Code(s): N20.1 - Calculus of ureter Status: Acute Assessment and Plan: * s/p cystoscopy, retrograge pyelogram, and stent placement * Urology following (6) Cirrhosis of liver with ascites: Qualifiers: Hepatic cirrhosis type: unspecified hepatic cirrhosis Qualified Code(s): K74.60 - Unspecified cirrhosis of liver; R18.8 - Other ascites Code(s): K74.60 - Unspecified cirrhosis of liver; R18.8 - Other ascites Status: Chronic Assessment and Plan: * chronic condition * s/p large volume paracentesis on admission * Gastroenterology following * possible need for TIPS * give a few dose of IV albumin to see if this helps with diuresis * suspect may need BOTH diagnostic and therapeutic paracentesis on Friday Will continue to follow. Subjective Date/time seen: 09/11/19 16:59 Lower extremity swelling seems to be doing better although noted to have upper extremity weeping; bilateral calf pain seems to have improved at this time; no acute distress voiced at the time of my visit; upset that paracentesis cannot be done sooner than Friday as he continues to have abdominal discomfort Exam Narrative: Exam Narrative: General: WD/WN male in NAD Heart: normal S1 and S2; no rub Lungs: clear to auscultation Abdomen: soft, mild TTP, mild diste
--- NOTE | 2019-09-11 16:59 | PM.PNNEP ---
Progress Note: A&P Assessment and Plan (1) RENA (acute kidney injury): Code(s): N17.9 - Acute kidney failure, unspecified Status: Acute Assessment and Plan: though to be secondary to left ureteral stone and mild hydronephrosis - however, would have assumed that right kidney would have compensated for this - perhaps, given his advanced CKD at baseline, his right kidney was not able to adapt another concern would be there has been a component of kidney disease progression (which seems more likely) acidosis and hyperkalemia better controlled at this time follow repeat labs and UOP I suspect the patient will eventually need renal replacement in the near future but no urgency at this time (making urine, relatively stable electrolytes, no signs/symptoms of uremia) but somewhat concerning that creatinine continues to rise (2) Chronic kidney disease, stage IV (severe): Code(s): N18.4 - Chronic kidney disease, stage 4 (severe) Status: Acute Assessment and Plan: creatinine had been running around 3.5 - 3.6mg/dl earlier this year due to cardiovascular disease, CHF, liver cirrhosis and associated liver physiology, DIMITRIS/pulmonary HTN, and necessity of diuretics to maintain his volume status he has expressed interest in peritoneal dialysis when dialysis is needed - this would help with his ascites but not his underlying liver disease - unfortunately, no surgeon here at [facility] places PD catheter - if dialysis needed while hospitalized, he would need to be initiated on hemodialysis (3) Hyperkalemia: Code(s): E87.5 - Hyperkalemia Status: Acute Assessment and Plan: due to #1 worsened by outpatient use of spironolactone (and long half life with CKD) spironolactone resumed -- follow K+ closely hopefully concomitant use of loop diuretics (bumex) should keep K+ stable follow trend (4) Metabolic acidosis: Code(s): E87.2 - Acidosis Status: Acute Assessment and Plan: worsened by #1 s/p bicarb fluids to compensate likely to also need oral sodium bicarbonate (but hesitant to give him any more sodium products) (5) Calculus of left ureter: Code(s): N20.1 - Calculus of ureter Status: Acute Assessment and Plan: s/p cystoscopy, retrograge pyelogram, and stent placement Urology following (6) Cirrhosis of liver with ascites: Qualifiers: Hepatic cirrhosis type: unspecified hepatic cirrhosis Qualified Code(s): K74.60 - Unspecified cirrhosis of liver; R18.8 - Other ascites Code(s): K74.60 - Unspecified cirrhosis of liver; R18.8 - Other ascites Status: Chronic Assessment and Plan: chronic condition s/p large volume paracentesis on admission Gastroenterology following possible need for TIPS give a few dose of IV albumin to see if this helps with diuresis suspect may need BOTH diagnostic and therapeutic paracentesis on Friday Will continue to follow. Subjective Date/time seen: 09/11/19 16:59 Lower extremity swelling seems to be doing better although noted to have upper extremity weeping; bilateral calf pain seems to have improved at this time; no acute distress voiced at the time of my visit; upset that paracentesis cannot be done sooner than Friday as he continues to have abdominal discomfort Exam Narrative: Exam Narrative: General: WD/WN male in NAD Heart: normal S1 and S2; no rub Lungs: clear to auscultation Abdomen: soft, mild TTP, mild distension, positive bowel sounds Extremities: no cyanosis or clubbing; trace - 1+ edema Skin: some weeping apparent Objective Data Vital Signs Vital Signs: Vital Signs Temp Pulse Resp BP Pulse Ox 09/11/19 14:00 36.3 C L 52 L 18 109/44 L 95 09/11/19 06:00 37.1 C 60 18 121/48 L 96 09/10/19 22:00 36.9 C 67 16 134/51 L 96 Intake/Output Intake/Output: Intake & Output 09/08/19 09/09/19 09/10/19
[2019-09-11] MEDS: ALBUMIN HUMAN 25% 12.5 GM/50ML 50 ML IVPB (17:27)
[2019-09-11] MEDS: BUMETANIDE 1 MG TABLET 2 MG PO (17:29)
--- NOTE | 2019-09-11 18:42 | PC.NURSE ---
Patient states he feels short of breath. Pulse ox 97% on room air. No respiratory distress noted.
[2019-09-11 19:38] VITALS: O2SAT 94
[2019-09-11 20:00] VITALS: BP 134/53; PULSE 63; RESP 18; TEMP 36.8; O2SAT 95
[2019-09-11] MEDS: SIMVASTATIN 20 MG TABLET PO (21:04)
[2019-09-11 22:23] LABS: Glucose Point of Care 106 (65-105)
[2019-09-12 04:00] VITALS: BP 118/48; PULSE 59; RESP 18; TEMP 36.9; O2SAT 94
[2019-09-12 05:44] LABS: Blood Urea Nitrogen 74 mg/dL (9-20); Calcium 6.8 mg/dL (8.4-10.2); Carbon Dioxide 19 mmol/L (22-30); Chloride 102 mmol/L (98-107); Estimated CRCL calculation 12 ml/min; Estimated Glomerular Filt Rate 8; Glucose 86 mg/dL (75-110); Potassium 4.3 mmol/L (3.4-5.0); Sodium 129 mmol/L (137-145)
--- NOTE | 2019-09-12 07:36 | WPDGIPROGNO ---
Progress Note: A&P Additional Plan Patient alert and comfortable this morning. he notes decline crease in leg edema. Denies shortness of breath. Denies abdominal pain. Physical exam reveals patient to be alert. Vital signs stable. HEENT exam reveals him to be anicteric. Lungs are clear. Heart without murmur. Abdomen is obese. Moderate distention. No organomegaly. No tenderness no masses. Extremity with 1 to2+ edema in the lower extremity. Labs reveal albumin 1.8, LFTs normal. BUN 74, creatinine 6.6. Impression 1. Cirrhosis. [place] to be secondary to BURROWS. Plan is for supportive care. 2. Ascites with peripheral edema. Plan is for low-salt diet. Continue diuresis. Patient's weight declined today hopefully this a good sign he is beginning to diurese. I would avoid large volume paracentesis for the immediate future unless absolutely necessary. Low-salt diet encouraged. Bumex in combination with spironolactone in progress. Continue to monitor electrolytes. Daily weights. 3. Acute on chronic renal failure. Nephrology service following. Patient may need dialysis. 4. Anemia. Most likely anemia of chronic disease. Subjective Date/time seen: 09/12/19 07:36 Objective Data Vital Signs Vital Signs: Vital Signs - 24 hr 09/11/19 14:00 09/11/19 19:38 09/11/19 20:00 Temperature 36.3 C L 36.8 C Pulse Rate 52 L 63 Respiratory Rate 18 18 Blood Pressure 109/44 L 134/53 L Pulse Oximetry 95 94 95 09/12/19 04:00 Temperature 36.9 C Pulse Rate 59 L Respiratory Rate 18 Blood Pressure 118/48 L Pulse Oximetry 94 Intake/Output Intake/Output: Intake & Output 09/09/19 09/10/19 09/11/19 09/12/19 23:59 23:59 23:59 23:59 Intake Total 3606 1300 770 240 Output Total 1200 1300 750 300 Balance 2406 0 20 -60 Meds/Results Medications: Active Medications Generic Name Dose Route Start Last Admin Trade Name Freq PRN Reason Stop Dose Admin Hydrocodone Bitart/Acetaminophen 1 tab 09/10/19 14:59 09/12/19 00:05 [place] 5-325 Mg PO 1 tab Q6H PRN Administration Pain Rated 4-6 Albuterol 1 puff 09/06/19 14:04 Proventil Hfa INHALATION Q4HRT PRN Shortness Of Breath Amlodipine Besylate 5 mg 09/07/19 09:00 09/11/19 08:55 Norvasc PO 5 mg DAILY NOÉ Administration Aspirin 81 mg 09/07/19 09:00 09/11/19 08:54 Aspirin Chewable PO 81 mg DAILY NOÉ Administration Bumetanide 2 mg 09/11/19 17:00 09/11/19 17:29 Bumex Po PO 2 mg DAILY@1700 NOÉ Administration Calcitriol 0.25 mcg 09/07/19 09:00 09/11/19 08:55 Rocaltrol PO 0.25 mcg DAILY NOÉ Administration Clopidogrel Bisulfate 75 mg 09/06/19 21:00 09/09/19 21:14 Plavix PO 75 mg HS [facility] Administration Dextrose 12.5 gm 09/06/19 04:12 Dextrose 50% Syringe IV PUSH PRN PRN Hypoglycemia Protocol Glucagon 1 mg 09/06/19 04:12 Glucagon For Inj IM PRN PRN Hypoglycemia Protocol Hydralazine HCl 50 mg 09/06/19 14:04 09/11/19 16:39 Apresoline Tablet PO 50 mg TID NOÉ Administration Dextrose 1,000 mls @ 100 mls/hr 09/06/19 04:12 Dextrose 5% 1,000 Ml IVPB PRN PRN Hypoglycemia Protocol Albumin Human 50 mls @ 50 mls/hr 09/12/19 09:00 Albutein IVPB BID NOÉ Insulin Aspart 2 - 5 units 09/09/19 17:00 09/11/19 16:41 Novolog SUB-Q Not Given TIDWM [facility] Protocol Multi-Ingred Cream/Lotion/Oil/Oint 1 applic 09/10/19 09:00 09/11/19 08:56 Minerin Creme TOPICAL 1 applic QAM [facility] Administration Ondansetron HCl 4 mg 09/06/19 11:44 Zofran Inj IV PUSH ONCE PRN Nausea Promethazine HCl 12.5 mg 09/05/19 22:25 09/07/19 09:11 Phenergan Inj IV PUSH 12.5 mg Q6H PRN Administration Nausea Silicone 1 each 09/10/19 09:00 09/11/19 11:49 Mepilex Border 4x4 TOPICAL 1 each DAILY NOÉ Administration Silicone 1 each 09/10/19 09:00 09/11/19 11:49 Mepilex Border 4x4 TOPICAL 1 ea
[2019-09-12 08:11] LABS: Glucose Point of Care 85 (65-105)
--- NOTE | 2019-09-12 08:50 | PM.IMPN ---
Progress Note: A&P Assessment and Plan (1) Acute renal failure superimposed on stage 4 chronic kidney disease: Code(s): N17.9 - Acute kidney failure, unspecified; N18.4 - Chronic kidney disease, stage 4 (severe) Status: Acute Assessment and Plan: He has an acute worsening of his stage IV CKD, initially thought to be postrenal secondary to hydronephrosis. However, now seems more likely that this may be progression of his CKD given lack of improvement following stent placement. Baseline creatinine appears to be 3.5. BUN is 74 and creatinine is 6.6 today. Nephrology has been consulted and their recommendations are greatly appreciated Continue to monitor urine output Avoid nephrotoxic agents and renally dose medications. Continue to monitor renal function closely. He will likely require dialysis in the future. (2) Ureteral stone with hydronephrosis: Code(s): N13.2 - Hydronephrosis with renal and ureteral calculous obstruction Status: Acute Assessment and Plan: He underwent left ureteral stent placement 09/06/[address] Finch. He tolerated the procedure well and his pain is well controlled. He has a Arredondo catheter in place with evidence of hematuria which has improved with irrigation, however urine is still brownish. Urology is following the patient and their recommendations are appreciated. Continue bladder irrigation per Urology recommendations Continue analgesics as needed. Continue to monitor urine output via Arredondo catheter. He will require stone extraction at a later date (3) Hyperkalemia: Code(s): E87.5 - Hyperkalemia Status: Acute Assessment and Plan: Patient had hyperkalemia at presentation mostly likely related to his CKD and worsened with spironolactone therapy. He has been treated with Kayexalate, calcium gluconate, insulin and dextrose, and sodium bicarbonate. Review of telemetry shows no evidence of arrhythmia. Potassium is stable at 4.3 today. Spironolactone was resumed on 09/09 for diuresis, and risk of hyperkalemia is noted Continue to monitor potassium levels closely. (4) Metabolic acidosis: Code(s): E87.2 - Acidosis Status: Acute Assessment and Plan: This is related to his acute on chronic renal failure. This has improved with IV bicarb. CO2 was 19 today. Appreciate nephrology recommendations Continue to monitor closely (5) Normocytic anemia: Code(s): D64.9 - Anemia, unspecified Status: Chronic Assessment and Plan: Iron panel is consistent with anemia of chronic disease. B12 and folate wnl. Hemoglobin was 8.0 at presentation, but declined to 6.9 and he underwent transfusion of 1 unit pRBC on 09/08/2019. H&H has remained stable. His vitals are stable and he is asymptomatic Continue to monitor H&H closely Transfuse as needed with hemoglobin threshold <7.0 (6) Cirrhosis of liver with ascites: Qualifiers: Hepatic cirrhosis type: unspecified hepatic cirrhosis Qualified Code(s): K74.60 - Unspecified cirrhosis of liver; R18.8 - Other ascites Code(s): K74.60 - Unspecified cirrhosis of liver; R18.8 - Other ascites Status: Chronic Assessment and Plan: He underwent paracentesis on 09/06/2019 which yielded 5000 mL cloudy brownish fluid. He reports he has been undergoing paracenteses weekly. He has significant ascites. Gastroenterology has been consulted and recommendations are appreciated Continue spironolactone at increased dose of 50 mg BID. Monitor potassium closely. Albumin IV has been started BID with spironolactone. Continue Bumex Continue low-sodium diet. Plan for small volume diagnostic paracentesis to evaluate ascitic fluid. Will check Gram stain, cell count, cultures, cytology, and chemistries. Plan for paracentesis tomorrow. Will resume plavix after. He may benefit from TIPS procedure at a later date. He also would likely benefit from referr
[2019-09-12] MEDS: hydrALAZINE HCL 50 MG TABLET PO ×3 (09:01→16:53)
[2019-09-12] MEDS: SPIRONOLACTONE 50 MG TABLET PO ×2 (09:01→16:55)
[2019-09-12] MEDS: AMLODIPINE BESYLATE 5 MG TABLET PO (09:02)
[2019-09-12] MEDS: calcitrioL 0.25 MCG CAPSULE PO (09:02)
[2019-09-12] MEDS: ALBUMIN HUMAN 25% 12.5 GM/50ML 50 ML IVPB ×2 (09:02→16:50)
[2019-09-12] MEDS: ASPIRIN 81 MG CHEWABLE TABLET PO (09:02)
[2019-09-12] MEDS: EUCERIN CREAM 120 GM JAR 1 APPLIC TOPICAL (09:15)
--- NOTE | 2019-09-12 09:50 | P.PNNP_ITS ---
Progress Note: A&P Assessment and Plan (1) RENA (acute kidney injury): Code(s): N17.9 - Acute kidney failure, unspecified Status: Acute Assessment and Plan: * thought to be secondary to left ureteral stone and mild hydronephrosis - however, would have assumed that right kidney would have compensated for this - perhaps, given his advanced CKD at baseline, his right kidney was not able to adapt * another concern would be there has been a component of kidney disease progre ssion (which seems more likely) * acidosis and hyperkalemia better controlled at this time * follow repeat labs and UOP * I suspect the patient will eventually need renal replacement in the near future but no urgency at this time (making urine, relatively stable electrolytes, no signs/symptoms of uremia) but somewhat concerning that creatinine continues to rise (2) Chronic kidney disease, stage IV (severe): Code(s): N18.4 - Chronic kidney disease, stage 4 (severe) Status: Acute Assessment and Plan: * creatinine had been running around 3.5 - 3.6mg/dl earlier this year * due to cardiovascular disease, CHF, liver cirrhosis and associated liver physiology, DIMITRIS/pulmonary HTN, and necessity of diuretics to maintain his volume status * he has expressed interest in peritoneal dialysis when dialysis is needed - this would help with his ascites but not his underlying liver disease - unfortunately, no surgeon here at [place] places PD catheter - if dialysis needed while hospitalized, he would need to be initiated on hemodialysis (3) Hyperkalemia: Code(s): E87.5 - Hyperkalemia Status: Acute Assessment and Plan: * due to #1 worsened by outpatient use of spironolactone (and long half life with CKD) * spironolactone resumed -- follow K+ closely * hopefully concomitant use of loop diuretics (bumex) should keep K+ stable * follow trend (4) Metabolic acidosis: Code(s): E87.2 - Acidosis Status: Acute Assessment and Plan: * worsened by #1 * s/p bicarb fluids to compensate * likely to also need oral sodium bicarbonate (but hesitant to give him any more sodium products) (5) Calculus of left ureter: Code(s): N20.1 - Calculus of ureter Status: Acute Assessment and Plan: * s/p cystoscopy, retrograge pyelogram, and stent placement * Urology following (6) Cirrhosis of liver with ascites: Qualifiers: Hepatic cirrhosis type: unspecified hepatic cirrhosis Qualified Code(s): K74.60 - Unspecified cirrhosis of liver; R18.8 - Other ascites Code(s): K74.60 - Unspecified cirrhosis of liver; R18.8 - Other ascites Status: Chronic Assessment and Plan: * chronic condition * s/p large volume paracentesis on admission * Gastroenterology following * possible need for TIPS * give a few dose of IV albumin to see if this helps with diuresis * suspect may need BOTH diagnostic and therapeutic paracentesis tomorrow but will defer to GI Will continue to follow. Subjective Date/time seen: 09/12/19 09:50 Still feeling uncomfortable with abdominal fullness/distension due to ascites; no other acute issues or problems voiced; no events overnight or earlier this AM; no apparent distress at this time. Exam Narrative: Exam Narrative: General: WD/WN male in NAD Heart: normal S1 and S2; no rub Lungs: clear to auscultation Abdomen: soft, mild TTP, mild distension, positive bowel sounds Extremities: no cyanosis or clubbing; trace - 1+ edema
--- NOTE | 2019-09-12 09:50 | PM.PNNEP ---
Progress Note: A&P Assessment and Plan (1) RENA (acute kidney injury): Code(s): N17.9 - Acute kidney failure, unspecified Status: Acute Assessment and Plan: thought to be secondary to left ureteral stone and mild hydronephrosis - however, would have assumed that right kidney would have compensated for this - perhaps, given his advanced CKD at baseline, his right kidney was not able to adapt another concern would be there has been a component of kidney disease progression (which seems more likely) acidosis and hyperkalemia better controlled at this time follow repeat labs and UOP I suspect the patient will eventually need renal replacement in the near future but no urgency at this time (making urine, relatively stable electrolytes, no signs/symptoms of uremia) but somewhat concerning that creatinine continues to rise (2) Chronic kidney disease, stage IV (severe): Code(s): N18.4 - Chronic kidney disease, stage 4 (severe) Status: Acute Assessment and Plan: creatinine had been running around 3.5 - 3.6mg/dl earlier this year due to cardiovascular disease, CHF, liver cirrhosis and associated liver physiology, DIMITRIS/pulmonary HTN, and necessity of diuretics to maintain his volume status he has expressed interest in peritoneal dialysis when dialysis is needed - this would help with his ascites but not his underlying liver disease - unfortunately, no surgeon here at [place] places PD catheter - if dialysis needed while hospitalized, he would need to be initiated on hemodialysis (3) Hyperkalemia: Code(s): E87.5 - Hyperkalemia Status: Acute Assessment and Plan: due to #1 worsened by outpatient use of spironolactone (and long half life with CKD) spironolactone resumed -- follow K+ closely hopefully concomitant use of loop diuretics (bumex) should keep K+ stable follow trend (4) Metabolic acidosis: Code(s): E87.2 - Acidosis Status: Acute Assessment and Plan: worsened by #1 s/p bicarb fluids to compensate likely to also need oral sodium bicarbonate (but hesitant to give him any more sodium products) (5) Calculus of left ureter: Code(s): N20.1 - Calculus of ureter Status: Acute Assessment and Plan: s/p cystoscopy, retrograge pyelogram, and stent placement Urology following (6) Cirrhosis of liver with ascites: Qualifiers: Hepatic cirrhosis type: unspecified hepatic cirrhosis Qualified Code(s): K74.60 - Unspecified cirrhosis of liver; R18.8 - Other ascites Code(s): K74.60 - Unspecified cirrhosis of liver; R18.8 - Other ascites Status: Chronic Assessment and Plan: chronic condition s/p large volume paracentesis on admission Gastroenterology following possible need for TIPS give a few dose of IV albumin to see if this helps with diuresis suspect may need BOTH diagnostic and therapeutic paracentesis tomorrow but will defer to GI Will continue to follow. Subjective Date/time seen: 09/12/19 09:50 Still feeling uncomfortable with abdominal fullness/distension due to ascites; no other acute issues or problems voiced; no events overnight or earlier this AM; no apparent distress at this time. Exam Narrative: Exam Narrative: General: WD/WN male in NAD Heart: normal S1 and S2; no rub Lungs: clear to auscultation Abdomen: soft, mild TTP, mild distension, positive bowel sounds Extremities: no cyanosis or clubbing; trace - 1+ edema Skin: some weeping apparent Objective Data Vital Signs Vital Signs: Vital Signs Temp Pulse Resp BP Pulse Ox 09/12/19 04:00 36.9 C 59 L 18 118/48 L 94 09/11/19 20:00 36.8 C 63 18 134/53 L 95 09/11/19 19:38 94 09/11/19 14:00 36.3 C L 52 L 18 109/44 L 95 Intake/Output Intake/Output: Intake & Output 09/09/19 09/10/19 09/11/19 09/12/19 23:59 23:59 23:59 23:59 Intake Total 3606 1300 770 720 Output
[2019-09-12 11:49] LABS: Glucose Point of Care 101 (65-105)
[2019-09-12 14:00] VITALS: BP 138/46; PULSE 44; RESP 18; TEMP 36.3; O2SAT 95
[2019-09-12] MEDS: BISACODYL 10 MG SUPPOSITORY RECTAL (15:45)
[2019-09-12] MEDS: BUMETANIDE 1 MG TABLET 2 MG PO (16:53)
[2019-09-12 17:43] LABS: Glucose Point of Care 129 (65-105)
[2019-09-12] MEDS: SIMVASTATIN 20 MG TABLET PO (21:19)
[2019-09-12] MEDS: SENNA/DOCUSATE SODIUM TABLET 1 TAB PO (21:19)
[2019-09-12 21:23] LABS: IFOB Positive Control Positive; Immunochemical Fecal Occult Bl Negative (N)
[2019-09-12 21:50] VITALS: BP 139/56; PULSE 73; RESP 18; TEMP 36.2; O2SAT 98
[2019-09-13 03:13] LABS: Glucose Point of Care 117 (65-105)
[2019-09-13 05:23] LABS: Hematocrit 23.4 % (42.0-52.0); Hemoglobin 7.8 g/dL (14.0-18.0); Mean Corpuscular HGB Conc 33.3 g/dl (32-36); Mean Corpuscular Hemoglobin 29.2 pg (26-34); Mean Corpuscular Volume 87.6 fl (80-100); Mean Platelet Volume 9.2 fl (7.4-10.4); Platelet Count Result 128 k/mm3 (150-375); Red Blood Count 2.67 M/mm3 (4.6-6.20); Red Cell Distribution Width 13.8 % (11.5-14.5); White Blood Count 8.7 K/mm3 (4.5-10.0)
[2019-09-13 05:32] LABS: Blood Urea Nitrogen 75 mg/dL (9-20); Carbon Dioxide 19 mmol/L (22-30); Chloride 101 mmol/L (98-107); Estimated CRCL calculation 11 ml/min; Estimated Glomerular Filt Rate 8; Glucose 84 mg/dL (75-110); Potassium 4.6 mmol/L (3.4-5.0); Sodium 129 mmol/L (137-145)
[2019-09-13 06:00] VITALS: BP 112/46; PULSE 68; RESP 16; TEMP 36.6; O2SAT 98
[2019-09-13] MEDS: ALBUMIN HUMAN 25% 12.5 GM/50ML 50 ML IVPB ×2 (08:48→17:02)
[2019-09-13 09:32] LABS: Glucose Point of Care 80 (65-105)
--- NOTE | 2019-09-13 09:36 | WPDGIPROGNO ---
Progress Note: A&P Additional Plan Patient alert and comfortable today. Anxious to go home. Tolerating diet. States he has significant diuresis. He reports edema in his ankles feels much improved. Physical exam reveals him to be alert. He is anicteric. Vital signs stable. Lungs are clear. Heart without murmur. Abdomen is obese. With some distention. Extremities with 1 to2+ edema in the ankles. Hemoglobin 7.8, hematocrit 23.4, MCV 86. Albumin 1.8, BUN 75, creatinine 6.9, impression 1. Cirrhosis of liver attributed to BURROWS. Plan is for supportive care. 2. Ascites. With peripheral edema in the ankles. Plan is for continued diuresis. We will continue low-salt diet monitor electrolytes. We will attempt to avoid paracenteses is if at all possible. It should paracentesis be required than albumin infusion simultaneously advised. Outpatient follow-up suggested. Daily weights encourage. 3. Acute on chronic renal failure. Dialysis being contemplated. 4. Ureteral stone with subsequent stent placement. Resolving hydronephrosis. Subjective Date/time seen: 09/13/19 09:36 Objective Data Vital Signs Vital Signs: Vital Signs - 24 hr 09/12/19 14:00 09/12/19 21:50 09/13/19 06:00 Temperature 36.3 C L 36.2 C L 36.6 C Pulse Rate 44 L 73 68 Respiratory Rate 18 18 16 Blood Pressure 138/46 L 139/56 L 112/46 L Pulse Oximetry 95 98 98 Intake/Output Intake/Output: Intake & Output 09/10/19 09/11/19 09/12/19 09/13/19 23:59 23:59 23:59 23:59 Intake Total 7987 652 6493 350 Output Total 1300 750 700 650 Balance 0 20 360 -300 Meds/Results Medications: Active Medications Generic Name Dose Route Start Last Admin Trade Name Freq PRN Reason Stop Dose Admin Hydrocodone Bitart/Acetaminophen 1 tab 09/10/19 14:59 09/13/19 03:08 [place] 5-325 Mg PO 1 tab Q6H PRN Administration Pain Rated 4-6 Albuterol 1 puff 09/06/19 14:04 Proventil Hfa INHALATION Q4HRT PRN Shortness Of Breath Amlodipine Besylate 5 mg 09/07/19 09:00 09/12/19 09:02 Norvasc PO 5 mg DAILY NOÉ Administration Aspirin 81 mg 09/07/19 09:00 09/12/19 09:02 Aspirin Chewable PO 81 mg DAILY NOÉ Administration Bumetanide 2 mg 09/11/19 17:00 09/12/19 16:53 Bumex Po PO 2 mg DAILY@1700 NOÉ Administration Calcitriol 0.25 mcg 09/07/19 09:00 09/12/19 09:02 Rocaltrol PO 0.25 mcg DAILY NOÉ Administration Clopidogrel Bisulfate 75 mg 09/06/19 21:00 09/09/19 21:14 Plavix PO 75 mg HS NOÉ Administration Dextrose 12.5 gm 09/06/19 04:12 Dextrose 50% Syringe IV PUSH PRN PRN Hypoglycemia Protocol Glucagon 1 mg 09/06/19 04:12 Glucagon For Inj IM PRN PRN Hypoglycemia Protocol Hydralazine HCl 50 mg 09/06/19 14:04 09/12/19 16:53 Apresoline Tablet PO 50 mg TID NOÉ Administration Dextrose 1,000 mls @ 100 mls/hr 09/06/19 04:12 Dextrose 5% 1,000 Ml IVPB PRN PRN Hypoglycemia Protocol Albumin Human 50 mls @ 50 mls/hr 09/12/19 09:00 09/13/19 08:48 Albutein IVPB 50 mls/hr BID NOÉ Administration Insulin Aspart 2 - 5 units 09/09/19 17:00 09/13/19 08:02 Novolog SUB-Q Not Given TIDWM [facility] Protocol Multi-Ingred Cream/Lotion/Oil/Oint 1 applic 09/10/19 09:00 09/12/19 09:15 Minerin Creme TOPICAL 1 applic QAM NOÉ Administration Ondansetron HCl 4 mg 09/06/19 11:44 Zofran Inj IV PUSH ONCE PRN Nausea Promethazine HCl 12.5 mg 09/05/19 22:25 09/07/19 09:11 Phenergan Inj IV PUSH 12.5 mg Q6H PRN Administration Nausea Senna/Docusate Sodium 1 tab 09/12/19 21:00 09/12/19 21:19 Senokot S Tablet PO 1 tab HS NOÉ Administration Silicone 1 each 09/10/19 09:00 09/12/19 09:15 Mepilex Border 4x4 TOPICAL 1 each DAILY NOÉ Administration Silicone 1 each 09/10/19 09:00 09/12/19 09:15 Mepilex Border 4x4 TOPICAL 1 each DAILY NOÉ
[2019-09-13 09:40] VITALS: BP 120/48
[2019-09-13] MEDS: EUCERIN CREAM 120 GM JAR 1 APPLIC TOPICAL (09:41)
[2019-09-13] MEDS: SPIRONOLACTONE 50 MG TABLET PO ×2 (09:42→16:57)
[2019-09-13] MEDS: hydrALAZINE HCL 50 MG TABLET PO ×3 (09:42→16:56)
[2019-09-13 09:58] LABS: INR 1.2; Prothrombin Time 14.6 Seconds (11.1-14.7)
[2019-09-13 09:59] LABS: Partial Thromboplastin Time 36.5 SECONDS (22.3-36.8)
--- NOTE | 2019-09-13 10:59 | PCOTNOTE ---
Patient refused treatment this session due to having a test coming up soon, pt wished to rest until after test. Will attempt at a later time.
[2019-09-13 12:49] LABS: Glucose Point of Care 88 (65-105)
[2019-09-13] MEDS: AMLODIPINE BESYLATE 5 MG TABLET PO (13:32)
[2019-09-13] MEDS: calcitrioL 0.25 MCG CAPSULE PO (13:33)
[2019-09-13] MEDS: ASPIRIN 81 MG CHEWABLE TABLET PO (13:33)
[2019-09-13 13:53] VITALS: BP 136/51; PULSE 60; RESP 18; TEMP 36.6; O2SAT 97
[2019-09-13 14:00] LABS: Appearance Peritoneal Fluid Cloudy (Clear); Color Peritoneal Fluid Yellow (Colorless); Neutrophils Peritoneal Fluid 10 % (0-25); Nucleated Cells Peritoneal Flu 155 /uL (0-500); RBC Peritoneal Fluid 920 /uL (0-100000); Source Peritoneal Fluid Peritoneal Fluid
[2019-09-13 14:01] LABS: Lymphocytes Peritoneal Fluid 20 %; Mesothelial Cells Peritoneal Fluid 27 %; Monocytes Peritoneal Fluid 43 %
--- NOTE | 2019-09-13 14:22 | PM.DS ---
DS: Admitting Diagnosis Admitting Diagnosis Admitting Diagnosis: Calculus of ureter DS: Discharge Diagnosis Discharge Diagnosis (1) Acute renal failure superimposed on stage 4 chronic kidney disease: Code(s): N17.9 - Acute kidney failure, unspecified; N18.4 - Chronic kidney disease, stage 4 (severe) Status: Acute Assessment and Plan: He has an acute worsening of his stage IV CKD, initially thought to be postrenal secondary to hydronephrosis. However, it seems more likely that this may be progression of his CKD given lack of improvement following stent placement. Baseline creatinine is 3.5. Creatinine continued to increase and was 6.9 at discharge and BUN 75. He was monitored by Dr. Piper, who he is already established with. He had good urine output. He will follow up with Dr. Piper as an outpatient for dialysis consideration. (2) Ureteral stone with hydronephrosis: Code(s): N13.2 - Hydronephrosis with renal and ureteral calculous obstruction Status: Acute Assessment and Plan: He underwent left ureteral stent placement 09/06/[address] Finch. He tolerated the procedure well and his pain was well controlled. He had a Arredondo catheter which was irrigated and his catheter was discontinued on 09/12. He will follow up with urology for stone extraction. (3) Hyperkalemia: Code(s): E87.5 - Hyperkalemia Status: Acute Assessment and Plan: He had hyperkalemia at presentation mostly likely related to his CKD and worsened with spironolactone therapy. He was treated with Kayexalate, calcium gluconate, insulin and dextrose, and sodium bicarbonate. His potassium stabilized and spironolactone was resumed for diuresis given cirrhosis. 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 (4) Metabolic acidosis: Code(s): E87.2 - Acidosis Status: Acute Assessment and Plan: This is related to his acute on chronic renal failure. Showed improvement with IV bicarb. He will follow-up with Dr. Piper as an outpatient. (5) Normocytic anemia: Code(s): D64.9 - Anemia, unspecified Status: Chronic Assessment and Plan: Iron panel is consistent with anemia of chronic disease. B12 and folate wnl. Hemoglobin was 8.0 at presentation, but declined to 6.9 and he underwent transfusion of 1 unit pRBC on 09/08/2019. H&H remained stable following transfusion and he was asymptomatic. (6) Cirrhosis of liver with ascites: Qualifiers: Hepatic cirrhosis type: unspecified hepatic cirrhosis Qualified Code(s): K74.60 - Unspecified cirrhosis of liver; R18.8 - Other ascites Code(s): K74.60 - Unspecified cirrhosis of liver; R18.8 - Other ascites Status: Chronic Assessment and Plan: He has been undergoing large volume paracentesis weekly. He underwent paracentesis on 09/06/2019 which yielded 5000 mL cloudy brownish fluid. He was seen in consultation by Dr. Hull. He underwent small volume paracentesis for diagnostic purposes only on 09/13/2019. He will follow-up with Dr. Hull for these results. He may benefit from a TIPS procedure at a later date if his ascites worsens. (7) Bilateral calf pain: Code(s): M79.661 - Pain in right lower leg; M79.662 - Pain in left lower leg Status: Acute Assessment and Plan: He complaint of of 10/10 sharp, stabbing bilateral calf pain which improved following Aleksandr wraps and diuresis. Venous Dopplers were negative for DVT. He will continue diuresis as an outpatient he has been encouraged to elevate his legs. His lower extremity edema improved. (8) Generalized weakness: Code(s): R53.1 - Weakness Status: Acute Assessment and Plan: He complained of recent weakness. He typically ambulates with a cane at home. He was evaluated by physical therapy and occupational therapy and home health has been arranged for further therapy.
--- NOTE | 2019-09-13 16:28 | P.PNNP_ITS ---
Progress Note: A&P Assessment and Plan (1) RENA (acute kidney injury): Code(s): N17.9 - Acute kidney failure, unspecified Status: Acute Assessment and Plan: * thought to be secondary to left ureteral stone and mild hydronephrosis - however, would have assumed that right kidney would have compensated for this - perhaps, given his advanced CKD at baseline, his right kidney was not able to adapt * more likely he has a component of kidney disease progression - this is further worsened by the need for diuretic therapy as well * acidosis and hyperkalemia better controlled at this time * follow repeat labs and UOP * I suspect the patient will eventually need renal replacement in the near future but no urgency at this time (making urine, relatively stable e lectrolytes, no signs/symptoms of uremia) but somewhat concerning that creatinine continues to rise (2) Chronic kidney disease, stage IV (severe): Code(s): N18.4 - Chronic kidney disease, stage 4 (severe) Status: Acute Assessment and Plan: * creatinine had been running around 3.5 - 3.6mg/dl earlier this year * due to cardiovascular disease, CHF, liver cirrhosis and associated liver physiology, DIMITRIS/pulmonary HTN, and necessity of diuretics to maintain his volume status * he has expressed interest in peritoneal dialysis when dialysis is needed - this would help with his ascites but not his underlying liver disease - unfortunately, no surgeon here at [facility] places PD catheter - will try to arrange for outpatient evalufation for PD catheter placement (3) Hyperkalemia: Code(s): E87.5 - Hyperkalemia Status: Acute Assessment and Plan: * due to #1 worsened by outpatient use of spironolactone (and long half life with CKD) * spironolactone resumed -- follow K+ closely * hopefully concomitant use of loop diuretics (bumex) should keep K+ stable * follow trend (4) Metabolic acidosis: Code(s): E87.2 - Acidosis Status: Acute Assessment and Plan: * worsened by #1 * s/p bicarb fluids to compensate * likely to also need oral sodium bicarbonate (but hesitant to give him any more sodium products) (5) Calculus of left ureter: Code(s): N20.1 - Calculus of ureter Status: Acute Assessment and Plan: * s/p cystoscopy, retrograge pyelogram, and stent placement * Urology following (6) Cirrhosis of liver with ascites: Qualifiers: Hepatic cirrhosis type: unspecified hepatic cirrhosis Qualified Code(s): K74.60 - Unspecified cirrhosis of liver; R18.8 - Other ascites Code(s): K74.60 - Unspecified cirrhosis of liver; R18.8 - Other ascites Status: Chronic Assessment and Plan: * chronic condition * s/p large volume paracentesis on admission * Gastroenterology following * possible need for TIPS * give a few dose of IV albumin to see if this helps with diuresis * suspect may need BOTH diagnostic and therapeutic paracentesis tomorrow but will defer to GI Will continue to follow - not opposed to discharge from renal perspective. Subjective Date/time seen: 09/13/19 16:28 Paracentesis done and tolerated procedure well; noted plans for discharge today; better urine output noted in the last 24 hours; no apparent distress voiced at this time. Exam Narrative: Exam Narrative: General: WD/WN male in NAD Heart: normal S1 and S2; no rub Lungs: clear to auscultation Abdomen: soft, , mild distension, positive bowel sounds Extremities: no cyanosis or
--- NOTE | 2019-09-13 16:28 | PM.PNNEP ---
Progress Note: A&P Assessment and Plan (1) RENA (acute kidney injury): Code(s): N17.9 - Acute kidney failure, unspecified Status: Acute Assessment and Plan: thought to be secondary to left ureteral stone and mild hydronephrosis - however, would have assumed that right kidney would have compensated for this - perhaps, given his advanced CKD at baseline, his right kidney was not able to adapt more likely he has a component of kidney disease progression - this is further worsened by the need for diuretic therapy as well acidosis and hyperkalemia better controlled at this time follow repeat labs and UOP I suspect the patient will eventually need renal replacement in the near future but no urgency at this time (making urine, relatively stable electrolytes, no signs/symptoms of uremia) but somewhat concerning that creatinine continues to rise (2) Chronic kidney disease, stage IV (severe): Code(s): N18.4 - Chronic kidney disease, stage 4 (severe) Status: Acute Assessment and Plan: creatinine had been running around 3.5 - 3.6mg/dl earlier this year due to cardiovascular disease, CHF, liver cirrhosis and associated liver physiology, DIMITRIS/pulmonary HTN, and necessity of diuretics to maintain his volume status he has expressed interest in peritoneal dialysis when dialysis is needed - this would help with his ascites but not his underlying liver disease - unfortunately, no surgeon here at [facility] places PD catheter - will try to arrange for outpatient evalufation for PD catheter placement (3) Hyperkalemia: Code(s): E87.5 - Hyperkalemia Status: Acute Assessment and Plan: due to #1 worsened by outpatient use of spironolactone (and long half life with CKD) spironolactone resumed -- follow K+ closely hopefully concomitant use of loop diuretics (bumex) should keep K+ stable follow trend (4) Metabolic acidosis: Code(s): E87.2 - Acidosis Status: Acute Assessment and Plan: worsened by #1 s/p bicarb fluids to compensate likely to also need oral sodium bicarbonate (but hesitant to give him any more sodium products) (5) Calculus of left ureter: Code(s): N20.1 - Calculus of ureter Status: Acute Assessment and Plan: s/p cystoscopy, retrograge pyelogram, and stent placement Urology following (6) Cirrhosis of liver with ascites: Qualifiers: Hepatic cirrhosis type: unspecified hepatic cirrhosis Qualified Code(s): K74.60 - Unspecified cirrhosis of liver; R18.8 - Other ascites Code(s): K74.60 - Unspecified cirrhosis of liver; R18.8 - Other ascites Status: Chronic Assessment and Plan: chronic condition s/p large volume paracentesis on admission Gastroenterology following possible need for TIPS give a few dose of IV albumin to see if this helps with diuresis suspect may need BOTH diagnostic and therapeutic paracentesis tomorrow but will defer to GI Will continue to follow - not opposed to discharge from renal perspective. Subjective Date/time seen: 09/13/19 16:28 Paracentesis done and tolerated procedure well; noted plans for discharge today; better urine output noted in the last 24 hours; no apparent distress voiced at this time. Exam Narrative: Exam Narrative: General: WD/WN male in NAD Heart: normal S1 and S2; no rub Lungs: clear to auscultation Abdomen: soft, , mild distension, positive bowel sounds Extremities: no cyanosis or clubbing; trace edema Skin: no rash Objective Data Vital Signs Vital Signs: Vital Signs Temp Pulse Resp BP Pulse Ox 09/13/19 13:53 36.6 C 60 18 136/51 L 97 09/13/19 09:40 120/48 L 09/13/19 06:00 36.6 C 68 16 112/46 L 98 09/12/19 21:50 36.2 C L 73 18 139/56 L 98 Intake/Output Intake/Output: Intake & Output 09/10/19 09/11/19 09/12/19 09/13/19 23:59 23:59 23:59 23:59 Intake Total 1300 770
[2019-09-13 16:38] LABS: Glucose Point of Care 135 (65-105)
[2019-09-13] MEDS: BUMETANIDE 1 MG TABLET 2 MG PO (16:56)
[2019-09-13] MEDS: PROMETHAZINE HCL 25 MG/ML AMPUL 12.5 MG IV PUSH (16:57)
[2019-09-14 18:01] LABS: Alpha Fetoprotein Tumor Marker 1.6 ng/mL (<6.1)
[2019-09-16 05:10] LABS: Glucose Peritoneal Fluid 96 mg/dL; LDH Peritoneal Fluid 38 U/L (<63); Total Protein Peritoneal Fluid <3.0 g/dL
[2019-09-16 06:48] LABS: Amylase Peritoneal Fluid <10 U/L
[2019-09-21 16:30] LABS: Albumin Peritoneal Fluid 0.5 g/dL
== END 2019-09-13 20:00 | disposition home health service (06) | DRG 660 ==
LOC: ANHED 22:36 → ANHIMU 22:53 → ANH2MED 09-10 13:40 → ANHIMU 09-15 16:41 → ANH2MED 09-15 17:11 → ANHIMU 09-15 17:11
PROVIDERS: Emergency Medicine; Internal Medicine Gastroenterology; Physician Assistant; Urology; Admitting Provider Family Medicine; Emergency Provider General Practice; PCP Family Medicine; Visit Provider Physician Assistant
PROC: 0T778DZ Dilation of Left Ureter with Intraluminal Device, Via Natural or Artificial Opening Endoscopic (ICD-10-PCS; CPT 52352; principal; 2019-09-06 16:00)
DX: N17.9 Acute kidney failure, unspecified (principal); R18.8 Other ascites; I13.0 Hypertensive heart and chronic kidney disease with heart failure and stage 1 through stage 4 chronic kidney disease, or unspecified chronic kidney disease; I50.32 Chronic diastolic (congestive) heart failure; I25.810 Atherosclerosis of coronary artery bypass graft(s) without angina pectoris; E87.2 Acidosis; N18.4 Chronic kidney disease, stage 4 (severe); N13.2 Hydronephrosis with renal and ureteral calculous obstruction; I27.20 Pulmonary hypertension, unspecified; D63.8 Anemia in other chronic diseases classified elsewhere; K74.60 Unspecified cirrhosis of liver; E87.5 Hyperkalemia; R53.1 Weakness; E78.5 Hyperlipidemia, unspecified; G47.33 Obstructive sleep apnea (adult) (pediatric); I48.0 Paroxysmal atrial fibrillation; R31.9 Hematuria, unspecified; K59.00 Constipation, unspecified; M79.662 Pain in left lower leg; M79.661 Pain in right lower leg; Z96.0 Presence of urogenital implants; Z79.02 Long term (current) use of antithrombotics/antiplatelets; Z79.899 Other long term (current) drug therapy
CPT/HCPCS: 36415; 36430; 49083; 51701; 71045; 74018; 74176; 74420; 76775; 80048; 80053; 81001; 82042; 82105; 82140; 82150; 82274; 82607; 82728; 82746; 82945; 82948; 83540; 83550; 83605; 83615; 83690; 83735; 84105; 84132; 84133; 84157; 84300; 85014; 85018; 85025; 85027; 85610; 85730; 86850; 86900; 86901; 86920; 87070; 87075; 87205; 88104; 88108; 88305; 89051; 93005; 93970; 94660; 96361; 96365; 96375; 96376; 97110; 97161; 97165; 97530; 99291; A9270; C1769; C1887; C2617; J0610; J0690; J1170; J1650; J1815; J2405; J2550; J2704; J3010; J7030; J7040; J7042; J7050; P9016; P9047; Q9966

== ENCOUNTER 2019-09-20 09:38 | Outpatient (CLI) | payer MEDICARE, SELFPAY ==
[2019-09-20 09:57] LABS: Hematocrit 27.2 % (42.0-52.0)
[2019-09-20 10:11] LABS: Blood Urea Nitrogen 77 mg/dL (9-20); Calcium 7.6 mg/dL (8.4-10.2); Carbon Dioxide 20 mmol/L (22-30); Chloride 99 mmol/L (98-107); Estimated Glomerular Filt Rate 7; Glucose 101 mg/dL (75-110); Potassium 5.2 mmol/L (3.4-5.0); Sodium 128 mmol/L (137-145)
== END 2019-09-20 09:39 | disposition home or self-care (01) ==
LOC: ANHSURGERY 09:39
PROVIDERS: Anesthesiology; PCP Family Medicine; Visit Provider Urology
DX: Z86.79 Personal history of other diseases of the circulatory system (principal); D64.9 Anemia, unspecified
CPT/HCPCS: 36415; 80048; 85014; 85018

== ENCOUNTER 2019-09-21 01:21 | Outpatient (CLI) | payer MEDICARE, SELFPAY ==
[2019-09-21 19:17] LABS: SARS-CoV-2 RNA PCR Negative
== END 2019-09-21 01:22 | disposition home or self-care (01) ==
LOC: ANHCOVIDDT 01:22
PROVIDERS: PCP Family Medicine; Visit Provider Urology
DX: Z01.818 Encounter for other preprocedural examination (principal); Z11.59 Encounter for screening for other viral diseases
CPT/HCPCS: 87635; C9803; U0003

== ENCOUNTER 2019-09-23 02:11 | Day surgery (SDC) | payer MEDICARE, SELFPAY ==
[2019-09-16 15:54] VITALS: BMI 24.4
--- NOTE | 2019-09-21 07:35 | PM.HPGS ---
History of Present Illness History of Present Illness Consent: Risks, benefits, and alternatives have been discussed and questions answered. Patient agrees to proceed with procedure. Chief complaint: Left UPJ Stone Narrative: Naldo Lowry is a 69 year old male recently admitted with left flank pain and RENA. Dr. Betzaida Finch placed a stent for a small left UPJ stone. Now that he's clinically improved, presents for left ureteroscopy with stent removal. Review of Systems Cardiovascular: Cardiovascular: Denies chest pain, Denies lightheadedness, Denies palpitations and Denies dyspnea Respiratory: Respiratory: Denies dyspnea Gastrointestinal: Gastrointestinal: Denies diarrhea, Denies nausea and Denies vomiting Genitourinary: Genitourinary: Denies hematuria and Denies dysuria Endocrine: Endocrine: Denies palpitations PMFSH Past Medical History Medical History Anemia Chronic diastolic (congestive) heart failure CKD (chronic kidney disease) stage 4, GFR 15-29 ml/min Coronary artery 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 Edema of both legs DIMITRIS (obstructive sleep apnea) Other ascites PAF (paroxysmal atrial fibrillation) Presence of Watchman left atrial appendage closure device Pulmonary hypertension Surgical History Surgical History History of penile implant History of tonsillectomy Family History Family History Mother Diabetes mellitus Father Family history of malignant neoplasm Family history of lung cancer Hypertension Sibling Diabetes mellitus Social History Social History Smoking packs per day: 1 Smoking cigarettes per day: 20.0 Years smoked: 10 Smoking pack-years: 10.00 Smoking status: Former smoker Tobacco type: cigarettes Smoking end date: 03/17/75 Substance use: never Spiritual care concerns: No Meds Home Medications and Allergies Home Medications Medication Instructions Recorded Confirmed Type albuterol sulfate 90 mcg/actuation 1 puff INHALATION Q4H PRN 05/24/19 09/16/19 History aerosol inhaler amlodipine 5 mg tablet 5 mg PO DAILY 05/24/19 09/16/19 History aspirin 81 mg chewable tablet 81 mg PO DAILY 05/24/19 09/16/19 History hydralazine 50 mg tablet 50 mg PO TID 05/24/19 09/16/19 History ipratropium 20 mcg-albuterol 100 1 puff INHALATION Q4H PRN 05/24/19 09/16/19 History mcg/actuation mist for inhalation simvastatin 20 mg tablet 20 mg PO HS 05/24/19 09/16/19 History bumetanide 2 mg PO HS 09/06/19 09/16/19 History calcitriol 0.25 mcg PO DAILY 09/06/19 09/16/19 History clopidogrel [Plavix] 75 mg PO HS 09/06/19 09/16/19 History spironolactone [Aldactone] 50 mg PO BID #30 tablet 09/13/19 09/16/19 Rx Allergies Allergy/AdvReac Type Severity Reaction Status Date / Time codeine Allergy Unknown RASH/BLISTE Verified 09/16/19 13:32 RS Exam Const: General: no acute distress Resp: Effort & Inspection: normal respiratory effort GI: Inspection: non-distended GI Palp: No abdominal tenderness and No Guarding due to palpation present (GI) Auscultation: normal bowel sounds Assessment and Plan Assessment and plan (1) Ureteral stone with hydronephrosis: Code(s): N13.2 - Hydronephrosis with renal and ureteral calculous obstruction Status: Acute Assessment and Plan: Left ureterosopy with stone extraction
[2019-09-23] VITALS (10 sets, daily range): BP systolic 139–153; BP diastolic 47–65; PULSE 58–71; RESP 12–18; TEMP 36.3–36.6; O2SAT 92–98
--- NOTE | ~2019-09-23 | XR_ITS ---
EXAMINATION: XR retrograde pyelogram LT DATE: 09/23/2019 09:09 INDICATION: Left retrograde ureteral stent removal TECHNIQUE: 45 fluoroscopic images of the abdomen and pelvis were obtained during procedure performed by Dr. Poole. Radiologist was not present for the imaging or procedure. The amount of fluoroscopy ti me used during this procedure was 0.7 minutes. COMPARISON: 09/13/2019 FINDINGS: Aircraft Electrician image demonstrates no significant change in position of a left internal ureteral stent with loo ps formed over the expected location of the left renal pelvis and the bladder. Prominent splenic gomez ry calcifications. A couple surgical clips projecting over the epigastric region. Subsequent images d emonstrate removal of the internal ureteral stent and retrograde extension of a catheter through the left ureter to the left renal pelvis and contrast injection. Contrast demonstrates mild left hydronep hrosis. No urothelial irregularities or stones identified. IMPRESSION: 1. Fluoroscopy utilized during reported left renal stone extraction. The stone is not visualized on t he provided fluoroscopic images. See procedure note for further detail. Reviewed, dictated and finalized at location A. IMPRESSION: 1. Fluoroscopy utilized during reported left renal stone extraction. The stone is not visualized on the provided fluoroscopic images. See procedure note for f urther detail.
[2019-09-23] MEDS: LACTATED RINGERS 1,000 ML 30 ML IV CONT (06:50)
[2019-09-23] MEDS: FAMOTIDINE 20 MG/2 ML VIAL IV PUSH (06:54)
[2019-09-23] MEDS: ONDANSETRON INJ 4 MG/2 ML VIAL IV PUSH (06:55)
--- NOTE | 2019-09-23 07:07 | WPDHPUPDATE1 ---
History and Physical Update Update Date/Time: 09/23/19 07:07 History and Physical has been reviewed, including an updated exam of the patient. There are NO changes in the patient's condition. Risks, benefits, and alternatives have been discussed and questions answered. Patient agrees to proceed with procedure.
[2019-09-23 07:23] LABS: Sodium 130 mmol/L (137-145)
--- NOTE | 2019-09-23 08:19 | WPDANESEFPP ---
Anes - Eval Final PreProcedure Day of Procedure 09/23/19 08:19 Patient weight: overweight Heart: regular rate and rhythm Lungs: clear to auscultation Airway: Mallampati scale class II Neurological: alert and oriented Last oral intake: >/= 8 hours ASA classification: III Emergent: no Anesthetic plan: proceed Anesthesia type and monitoring: general LMA and standard monitoring Informed Consent: The patient's anesthetic plan and its attendant risks and benefits were discussed with the patient/family/POA. Questions were solicited and answers provided to the satisfaction of the patient/family/POA.
[2019-09-23] MEDS: ceFAZolin 2 GM/D5W 50 ML 2 GM/50 ML BAG IVPB (08:26)
--- NOTE | 2019-09-23 09:10 | PM.PROC ---
Procedure Note - Detailed Date of procedure: 09/23/19 Pre-op diagnosis: Left UPJ Stone Post-op diagnosis: same Procedure performed: 1. Cystoscopy with left stent removal. 2. Left ruetteroscopy with retrogreade pyelography. 3. Left ureteroscopy with stone extraction Description of procedure: Patient is brought to the operative suite where he has prepped and draped in routine sterile fashion while in a dorsal lithotomy position after the uneventful induction of a general anesthetic. Cystoscopy is undertaken with a 19 F rigid cystoscope in the indwelling stent is removed with ease. 0.035 in glidewire was advanced in the left renal pelvis. The distal ureter was dilated with an 8 F 10 F dilator and ureteral access sheath was placed with ease. Ureteroscopy was undertaken with a 7.5 F flexible ureteral scope. A retrograde pyelogram was used to outline the collecting system to ensure inspection of all calyces. His an moderate amount of sludge/mucus-like material and one stene (3mm) which is extracted with a disposable stone basket. Some of this material was also irrigated down the access sheath. I did not replace the stent. Scopes and wires were removed and he was taken to the recovery room in good condition. Implants: None Anesthesia: GLMA Surgeon: Thuan Poole MD Estimated blood loss (mL): 0 Drains: No Packing: No Pathology: yes Complications: No immediate complications Condition: stable Disposition: PACU
--- NOTE | 2019-09-23 09:12 | SUR.OPER ---
EBL:0CC
== END 2019-09-23 11:47 | disposition home or self-care (01) ==
PROVIDERS: PCP Family Medicine; Visit Provider Urology
PROC: (CPT 52352; principal; 2019-09-23 08:15)
DX: N13.2 Hydronephrosis with renal and ureteral calculous obstruction (principal); N18.4 Chronic kidney disease, stage 4 (severe); I50.32 Chronic diastolic (congestive) heart failure; I25.10 Atherosclerotic heart disease of native coronary artery without angina pectoris; D64.9 Anemia, unspecified; G47.33 Obstructive sleep apnea (adult) (pediatric); I48.0 Paroxysmal atrial fibrillation; I27.20 Pulmonary hypertension, unspecified; Z87.891 Personal history of nicotine dependence; Z79.82 Long term (current) use of aspirin; Z79.02 Long term (current) use of antithrombotics/antiplatelets
CPT/HCPCS: 52352; 36415; 74420; 82365; 84295; 87635; 88300; C1769; C1894; C9803; J0690; J1100; J1200; J2405; J2704; J3010; J7120; Q9966; U0003

== ENCOUNTER 2019-10-06 23:14 | Inpatient (IN) | payer MEDICARE, SELFPAY ==
--- NOTE | ~2019-10-06 | XR_ITS ---
EXAMINATION: XR chest port-a-cath/central INDICATION: Dialysis catheter insertion TECHNIQUE: Portable AP chest at 1605 hours COMPARISON: 09/05/2019 FINDINGS: A right internal jugular dialysis catheter ends with its tip in the right atrium. There is no pneumothorax. There is stable cardiomegaly. Chronic elevation of the right hemidiaphragm is unchan ged. Mild atelectasis is seen in the right lung base. There are changes of prior cardiac surgery. Willian cified atherosclerosis is noted. IMPRESSION: 1. Right internal jugular dialysis catheter ending with its tip in the right atrium. No pneumothorax. 2. Stable cardiomegaly. Reviewed, dictated and finalized at location A. IMPRESSION: 1. Right internal jugular dialysis catheter ending with its tip in the right at rium. No pneumothorax. 2. Stable cardiomegaly.
--- NOTE | ~2019-10-06 | XR_ITS ---
EXAMINATION: XR abdomen NG/feed tube insert INDICATION: Nasogastric tube insertion TECHNIQUE: Portable AP KUB-NG at 1802 hours COMPARISON: 09/05/2019 FINDINGS: The nasogastric tube is in the stomach. The bowel gas pattern is normal. There is persisten t elevation of the right hemidiaphragm. IMPRESSION: 1. Nasogastric tube in the stomach. Reviewed, dictated and finalized at location A.
--- NOTE | ~2019-10-06 | XR_ITS ---
EXAMINATION: XR abdomen/kub 1V INDICATION: Vomiting TECHNIQUE: Supine views of the abdomen were obtained on 2 radiographs. COMPARISON: 10/07/2019 FINDINGS: The bowel gas pattern is nonspecific. No dilated loops of bowel are evident. Calcified athe rosclerosis is noted. The visualized lung bases are clear. There is mild elevation of the right hemid iaphragm. A surgical clip projects near the gastroesophageal junction. There is severe lumbar spondyl osis. IMPRESSION: 1. No radiographic correlate for the patient's symptoms. Reviewed, dictated and finalized at location A.
--- NOTE | ~2019-10-06 | NM_ITS ---
EXAMINATION: NM mariano stress w perfusion DATE: 10/13/2019 10:23 INDICATION: Chest pain. TECHNIQUE: Rest images were obtained following intravenous administration of 10 mCi Tc99m tetrofosmin (Myoview). The patient was infused intravenously with Lexiscan (regadenoson). Then, 32.3 mCi Tc99m t etrofosmin (Myoview) was administered intravenously, and stress images were obtained. Data was recons tructed into short axis and horizontal and vertical long axis SPECT images. Gated SPECT images were a lso obtained. COMPARISON: None. FINDINGS: There is no definite reversible or fixed perfusion abnormality to suggest ischemia or infar ction. There is no segmental wall motion abnormality. Left ventricular ejection fraction measures 6 9%. IMPRESSION: 1. No definite ischemia or infarct. 2. Normal left ventricular ejection fraction measuring 69%. Reviewed, dictated and finalized at location A.
--- NOTE | ~2019-10-06 | XR_ITS ---
EXAMINATION: XR fl guide central line place INDICATION: Tunnel dialysis catheter insertion TECHNIQUE: Three intraoperative fluoroscopic images are submitted for review. Fluoroscopy exposure ti me was 3.6 seconds. The DAP for this procedure was [id number] mGym2. COMPARISON: None available FINDINGS: Fluoroscopic images demonstrate insertion of a right internal jugular tunneled dialysis cat heter ending with its tip in the right atrium. There are changes of prior cardiac surgery. IMPRESSION: 1. Right internal jugular tunneled dialysis catheter insertion. Please refer to procedure note for fu ll details. Reviewed, dictated and finalized at location A. IMPRESSION: 1. Right internal jugular tunneled dialysis catheter insertion. Please refer to procedure note for full details.
--- NOTE | ~2019-10-06 | US_ITS ---
EXAMINATION: US renal BI EXAM DATE: 10/09/2019 10:37 INDICATION: Elevated creatinine. TECHNIQUE: Multiple grayscale and Doppler images of the kidneys were obtained (by a technologist who performed the scan) and subsequently reviewed. Comparison is made to prior examination from 09/06/2019 . FINDINGS: Large amount of ascites. Right kidney: There is normal contour and increased echogenicity. It measures 9.7 x 4.5 x 7.1 centim eters. There are no focal renal lesions identified. There is no hydronephrosis. Left kidney: There is normal contour and echogenicity. It measures 9.3 x 6.3 x 6.0 centimeters. The re are no focal renal lesions identified. There is no hydronephrosis. Bladder unremarkable. Prostate measures approximately 5 x 6 cm, moderately enlarged. IMPRESSION: 1. No hydronephrosis. 2. Increased right renal echogenicity, could indicate medical renal disease. Reviewed, dictated and finalized at location G.
[2019-10-06 23:16] VITALS: BP 123/55; PULSE 60; RESP 18; TEMP 36.4; O2SAT 100
--- NOTE | 2019-10-06 23:30 | ECG_ITS ---
Measurements Intervals [place] Rate: 61 P: ID: 0 QRS: -59 QRSD: 119 T: 117 QT: 424 QTc: 429 Interpretive Statements ATRIAL FIBRILLATION LEFT AXIS DEVIATION INCOMPLETE LEFT BUNDLE BRANCH BLOCK LOW QRS VOLTAGE IN PRECORDIAL LEADS BORDERLINE R WAVE PROGRESSION, ANTERIOR LEADS BORDERLINE ST-T WAVE ABNORMALITY- HIGH LATERAL LEADS ABNORMAL ECG Electronically Signed On 10-07-2019 8:08:32 CDT by Peter Pollack D.O.
--- NOTE | 2019-10-06 23:30 | ED.GIBLEED ---
HPI - GI Bleed General Chief complaint: GI Bleed Stated complaint: blood in stool Time Seen by Provider: 10/06/19 23:19 History of Present Illness HPI Narrative: 69 yo male w/ h/o cirrhosis, CKD, HTN, CAD presents with multiple complaints. He reports generally feeling icky for the past few days and getting worse. He noted some bright red blood in his stool a few days ago. His stool is now dark. He has a h/o gi bleed. He believes that this was due to a polyp. He also reports increasing ascites. He has an appointment for paracentesis tomorrow. Additionally feeling weak and fatigued. He says that he is retaining water, although not as much as he does sometimes. Related Data Home Medications Medication Instructions Recorded Confirmed albuterol sulfate 90 mcg/actuation 1 puff INHALATION Q4H PRN 05/24/19 09/16/19 aerosol inhaler amlodipine 5 mg tablet 5 mg PO DAILY 05/24/19 09/16/19 aspirin 81 mg chewable tablet 81 mg PO DAILY 05/24/19 09/23/19 hydralazine 50 mg tablet 50 mg PO TID 05/24/19 09/16/19 simvastatin 20 mg tablet 20 mg PO HS 05/24/19 09/16/19 bumetanide 2 mg PO DAILY 09/06/19 09/16/19 calcitriol 0.25 mcg PO DAILY 09/06/19 09/16/19 clopidogrel [Plavix] 75 mg PO DAILY 09/06/19 09/23/19 Allergies Allergy/AdvReac Type Severity Reaction Status Date / Time codeine Allergy Unknown RASH/BLISTE Verified 10/06/19 23:40 RS Review of Systems Review of Systems: All systems reviewed & are unremarkable except as noted in HPI and below Constitutional: Constitutional: Reports fatigue, Denies fever(s) and Reports weakness Cardiovascular: Cardiovascular: Denies chest pain Respiratory: Respiratory: Reports dyspnea Gastrointestinal: Gastrointestinal: Reports abdominal pain Genitourinary: Genitourinary: Reports oliguria Neurologic: Reports dizziness PMFSH Past Medical History Medical History Anemia Chronic diastolic (congestive) heart failure CKD (chronic kidney disease) stage 4, GFR 15-29 ml/min Coronary artery 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 Edema of both legs DIMITRIS (obstructive sleep apnea) Other ascites PAF (paroxysmal atrial fibrillation) Presence of Watchman left atrial appendage closure device Pulmonary hypertension Surgical History Surgical History History of penile implant History of tonsillectomy Family History Family History Mother Diabetes mellitus Father Family history of malignant neoplasm Family history of lung cancer Hypertension Sibling Diabetes mellitus Social History Social History Smoking packs per day: 1 Smoking cigarettes per day: 20.0 Years smoked: 10 Smoking pack-years: 10.00 Smoking status: Former smoker Tobacco type: cigarettes Smoking end date: 03/17/75 Alcohol intake: current Drinks per week: 2 Substance use: never Gender identity (if verbalized by the patient): Male Spiritual care concerns: No Exam Const: General: no acute distress, alert and ill appearing Orientation/consciousness: patient oriented x3 HENMT: Head: normal to inspection Eyes: Pupils: Equal, round and reactive pupils present Neck: Neck: normal visual inspection and no lymphadenopathy Chest: Chest palpation & inspection: no tenderness Resp: Effort & Inspection: normal respiratory effort Auscultation: clear to auscultation bilaterally, no rales, no rhonchi and no wheezes Cardio: Jugular venous distension: no JVD Rate: regular rate Rhythm: regular rhythm Heart sounds: no murmurs GI: GI Palp: Yes Soft to palpation and No Tenderness to palpation present (GI) Percussion: Yes Fluid wave present Skin: General skin exam: pallor Neuro: General: patient oriented x3, moves all extremities
[2019-10-06 23:41] LABS: Basophils Absolute Auto 0.1 K/mm3 (0.0-0.1); Basophils Percent Auto 0.8 % (0.2-1.2); Eosinophils Absolute Auto 0.2 K/mm3 (0-0.3); Eosinophils Percent Auto 2.7 % (0-4.4); Immature Granulocyte Absolute 0.08 K/mm3 (0.00-0.031); Immature Granulocyte Percent A 1.2 % (0-0.5); Lymphocytes Absolute Auto 0.37 K/mm3 (0.9-3.2); Lymphocytes Percent Auto 5.6 % (18.3-44.2); Mean Corpuscular HGB Conc 32.2 g/dl (32-36); Mean Corpuscular Hemoglobin 28.9 pg (26-34); Mean Corpuscular Volume 89.7 fl (80-100); Mean Platelet Volume 9.3 fl (7.4-10.4); Monocytes Absolute Auto 0.5 K/mm3 (0.1-0.6); Monocytes Percent Auto 7.4 % (2.6-8.5); Neutrophils Absolute Auto 5.4 K/mm3 (1.3-6.7); Neutrophils Percent Auto 82.3 % (45.5-73.1); Platelet Count Result 169 k/mm3 (150-375); Red Blood Count 2.04 M/mm3 (4.6-6.20); Red Cell Distribution Width 13.5 % (11.5-14.5); White Blood Count 6.6 K/mm3 (4.5-10.0)
[2019-10-06 23:51] LABS: INR 1.2; Partial Thromboplastin Time 31.9 SECONDS (22.3-36.8); Prothrombin Time 14.4 Seconds (11.1-14.7)
[2019-10-06 23:53] LABS: Albumin Level 2.7 g/dL (3.5-5.1); Alkaline Phosphatase 69 U/L (38-126); Anion Gap 16.3 mmol/L (7-16); Aspartate Amino Transferase 14 U/L (17-59); Bilirubin,Total 0.3 mg/dL (0.2-1.3); Blood Urea Nitrogen 99 mg/dL (9-20); Calcium 7.5 mg/dL (8.4-10.2); Carbon Dioxide 19 mmol/L (22-30); Chloride 105 mmol/L (98-107); Estimated CRCL calculation 9 ml/min; Estimated Glomerular Filt Rate 7; Glucose 104 mg/dL (75-110); Hematocrit 18.3 % (42.0-52.0); Hemoglobin 5.9 g/dL (14.0-18.0); Lipase 33 U/L (23-300); Potassium 5.3 mmol/L (3.4-5.0); Sodium 135 mmol/L (137-145)
[2019-10-07] VITALS (26 sets, daily range): BP systolic 117–151; BP diastolic 5–64; PULSE 57–79; RESP 14–21; TEMP 36.2–37; O2SAT 95–99; BMI 27.5
[2019-10-07 00:08] LABS: Troponin I 0.055 ng/mL (0.000-0.034)
[2019-10-07 00:11] LABS: Alanine Aminotransferase < 6 U/L (4-50)
[2019-10-07] MEDS: PANTOPRAZOLE SODIUM IV 40 MG VIAL 80 MG IV PUSH (00:19)
[2019-10-07] MEDS: TUBING, BLOOD PLUM PUMP TUBING 1 EACH XX (00:56)
[2019-10-07] MEDS: SODIUM CHLORIDE 0.9% IV 250 ML 30 ML IV CONT (00:56)
--- NOTE | 2019-10-07 01:31 | PM.IMHP ---
H&P: HPI History of Present Illness Chief complaint: GI bleed, anemia, CKD, elevated troponin Narrative: This is a pleasant 69 year old male with known nonalcoholic liver cirrhosis, CKD stage 4, Chronic diastolic heart failure, and paroxysmal atrial fibrillation on plavix who was just recently admitted to our hospital and treated for a renal stone who now returned with a complaint of generalized weakness and rectal bleeding. He reports having bright red rectal bleeding a few days ago which has not become dark black in color. Associated symptoms have been dizziness and exertional shortness of breath. He previously was getting weekly paracentesis but now has been having more time between his taps. His last paracentesis was about 1 month ago and was scheduled to get another paracentesis in the morning. The patient was evaluated in the ER today and found to have a Hgb of 5.9 and his last Hgb was 9.0 approximately two weeks ago. The patient was also found to have a mildly elevated troponin. On further questioning he denies any chest pain, headache, nausea, vomiting, abdominal pain, dysuria, hematuria, or diarrhea. ER provider has consulted GI, Dr. Hull who will evaluate the patient in the morning. The patient denies any NSAID use or anticoagulants. His last EGD and colonoscopy was over a year ago and he is not sure if he has esophageal varices. No other complaints. 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 Edema of both legs DIMITRIS (obstructive sleep apnea) Other ascites PAF (paroxysmal atrial fibrillation) Presence of Watchman left atrial appendage closure device Pulmonary hypertension Surgical History Surgical History History of penile implant History of tonsillectomy Family History Family History Mother Diabetes mellitus Father Family history of malignant neoplasm Family history of lung cancer Hypertension Sibling Diabetes mellitus Social History Social History Smoking packs per day: 1 Smoking cigarettes per day: 20.0 Years smoked: 10 Smoking pack-years: 10.00 Smoking status: Former smoker Tobacco type: cigarettes Smoking end date: 03/17/75 Substance use: never Gender identity (if verbalized by the patient): Male Spiritual care concerns: No Meds Home Medications and Allergies Home Medications Medication Instructions Recorded Confirmed Type albuterol sulfate 90 mcg/actuation 1 puff INHALATION Q4H PRN 05/24/19 09/16/19 History aerosol inhaler amlodipine 5 mg tablet 5 mg PO DAILY 05/24/19 09/16/19 History aspirin 81 mg chewable tablet 81 mg PO DAILY 05/24/19 09/23/19 History hydralazine 50 mg tablet 50 mg PO TID 05/24/19 09/16/19 History ipratropium 20 mcg-albuterol 100 1 puff INHALATION Q4H PRN 05/24/19 09/16/19 History mcg/actuation mist for inhalation simvastatin 20 mg tablet 20 mg PO HS 05/24/19 09/16/19 History bumetanide 2 mg PO DAILY 09/06/19 09/16/19 History calcitriol 0.25 mcg PO DAILY 09/06/19 09/16/19 History clopidogrel [Plavix] 75 mg PO DAILY 09/06/19 09/23/19 History spironolactone [Aldactone] 50 mg PO BID #30 tablet 09/13/19 09/16/19 Rx hydrocodone-acetaminophen 1 - 2 tablet PO Q6H PRN #20 tablet 09/23/19 Rx tramadol 50 mg PO Q8H 10/06/19 History Allergies Allergy/AdvReac Type Severity Reaction Status Date / Time codeine Allergy Unknown RASH/BLISTE Verified 10/06/19 23:40 RS Vital Signs Vital Signs - 24 hr 10/06/19
--- NOTE | 2019-10-07 02:56 | ADMGEN ---
This patient, Naldo Lowry, was admitted to IMU Room 200-01 FROM ER 10/07/19 0150. Patient/family oriented to hospital policies and general routines including ID bracelet, bed and alarms, visiting hours, pain management, procedures, bathroom and other care routines, personal items, smoking policy, room service/diet, and visiting hours. Valuables list has been completed. Information on how to activate the Rapid Response Team has been discussed. Patient/Family are encouraged to report perceived risks to care and to ask questions if they do not understand what they are told or what they should do.
[2019-10-07 08:44] LABS: Basophils Absolute Auto 0.1 K/mm3 (0.0-0.1); Basophils Percent Auto 0.8 % (0.2-1.2); Eosinophils Absolute Auto 0.5 K/mm3 (0-0.3); Eosinophils Percent Auto 7.3 % (0-4.4); Hematocrit 23.3 % (42.0-52.0); Hemoglobin 7.6 g/dL (14.0-18.0); Immature Granulocyte Absolute 0.09 K/mm3 (0.00-0.031); Immature Granulocyte Percent A 1.4 % (0-0.5); Lymphocytes Absolute Auto 0.47 K/mm3 (0.9-3.2); Lymphocytes Percent Auto 7.1 % (18.3-44.2); Mean Corpuscular HGB Conc 32.6 g/dl (32-36); Mean Corpuscular Hemoglobin 28.3 pg (26-34); Mean Corpuscular Volume 86.6 fl (80-100); Mean Platelet Volume 8.6 fl (7.4-10.4); Monocytes Absolute Auto 0.7 K/mm3 (0.1-0.6); Monocytes Percent Auto 10.8 % (2.6-8.5); Neutrophils Absolute Auto 4.8 K/mm3 (1.3-6.7); Neutrophils Percent Auto 72.6 % (45.5-73.1); Platelet Count Result 119 k/mm3 (150-375); Red Blood Count 2.69 M/mm3 (4.6-6.20); Red Cell Distribution Width 14.5 % (11.5-14.5); White Blood Count 6.6 K/mm3 (4.5-10.0)
--- NOTE | 2019-10-07 08:51 | WPDGICN ---
Assessment and Plan Assessment and plan (1) GI bleed: Code(s): K92.2 - Gastrointestinal hemorrhage, unspecified Status: Acute Assessment and Plan: GI bleeding uncertain whether this is upper GI or lower GI. Given his history of dark stools per suspect it may be upper plan is for EGD to assess for varices and ulcer disease this will be performed today. Patient will be transfused to a stable hemoglobin and maintain on proton pump inhibitor in the interim. Colonoscopy may be required if EGD fails identify source of GI blood loss. (2) Acute on chronic renal failure: Code(s): N17.9 - Acute kidney failure, unspecified; N18.9 - Chronic kidney disease, unspecified Status: Acute Assessment and Plan: Patient has rather profound significant underlying renal disease. Remains on dialysis creatinine quite elevated at 8. (3) Cirrhosis of liver with ascites: Qualifiers: Hepatic cirrhosis type: unspecified hepatic cirrhosis Qualified Code(s): K74.60 - Unspecified cirrhosis of liver; R18.8 - Other ascites Code(s): K74.60 - Unspecified cirrhosis of liver; R18.8 - Other ascites Status: Chronic Assessment and Plan: Cirrhosis felt to be on the basis of fatty liver. He is known to have ascites. Plan is for low-salt diet continue diuretics. Management of ascites should be directed towards medical therapy and limitation of paracentesis if at all possible. He will tend to lose protein with every paracentesis and should it be required albumin supplementation is advised concomitantly. (4) Chronic diastolic (congestive) heart failure: Code(s): I50.32 - Chronic diastolic (congestive) heart failure Status: Chronic (5) PAF (paroxysmal atrial fibrillation): Code(s): I48.0 - Paroxysmal atrial fibrillation Status: Chronic GI Consult Note Consult date/time: 10/07/19 08:51 HPI: Naldo Lowry is a 69 year old male Seen in evaluation at the request of the emergency room. Patient reports having blood in his stools that began initially 2 days ago. Bleeding was initially described as reddish in nature. But became somewhat blackish in nature over the last 2 days. During this interval of time patient is also had progressive fatigue weakness and decreased mobility. Patient's past medical history is significant for cirrhosis felt to be on the basis of fatty liver. He also has chronic kidney disease requiring dialysis. Known to my service because of hospitalization several weeks ago with recalcitrant ascites. Patient has undergone frequent abdominal paracenteses under the direction of the renal service. He subsequently became somewhat hypo albuminemia ache. More since last hospitalization has been advised to only do paracenteses when the patient became short of breath and symptomatic. Primary treatment should be diuresis if at all feasible with his ascites. Past medical history also significant for paroxysmal atrial fibrillation. Patient previously on Eliquis anticoagulation he currently only is on Plavix. 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 Edema of both legs DIMITRIS (obstructive sleep apnea) Other ascites PAF (paroxysmal atrial fibrillation) Presence of Watchman left atrial appendage closure device Pulmonary hypertension Surgical History Surgical History History of penile implant History of tonsillectomy Family History Family History Mother Diabetes mellitus Father Family
[2019-10-07 08:57] LABS: Add Urine Microscopic? NO; Appearance Urine Clear (Clear); Bilirubin Urine Negative (Negative); Blood Urine Negative (Negative); Color Urine Straw (Yellow); Glucose Urine UA Negative (Negative); Ketones Urine Negative (Negative); Leukocyte Esterase Ur Negative LEU/UL (Negative); Nitrate Urine Negative (Negative); Protein Urine Negative (Negative); Specific Grav Ur 1.012 (1.001-1.035); Urobilinogen Urine Negative mg/dL (<2.0)
[2019-10-07 08:58] LABS: Anion Gap 16.2 mmol/L (7-16); Blood Urea Nitrogen 91 mg/dL (9-20); Calcium 7.3 mg/dL (8.4-10.2); Carbon Dioxide 19 mmol/L (22-30); Chloride 104 mmol/L (98-107); Estimated CRCL calculation 8 ml/min; Estimated Glomerular Filt Rate 7; Glucose 122 mg/dL (75-110); Potassium 5.2 mmol/L (3.4-5.0); Sodium 134 mmol/L (137-145)
--- NOTE | 2019-10-07 09:30 | PC.NURSE ---
Patient to GI lab via stretcher. Report given to ADI Locke.
[2019-10-07] MEDS: LACTATED RINGERS 1,000 ML 150 ML IV CONT (09:38)
--- NOTE | 2019-10-07 09:57 | WPDANESEPPF ---
Anes - Initial Pre Proc Eval Procedure: Operation Date: 10/07/19 10:30 Proposed Procedures p Esophagogastroduodenoscopy - Cb Hull MD Date/Time: 10/07/19 09:57 Surgeon: Rick Lance MD Pre Op Diagnosis: GI bleed, anemia, CKD, elevated troponin Patient Data Age: 69 Gender: M Height: 5 ft 11 in Weight: 89.6 kg Last Vital Signs Temp 36.7 C 10/07/19 09:15 Pulse 61 10/07/19 09:15 Resp 15 10/07/19 09:15 BP 151/64 H 10/07/19 09:15 Pulse Ox 98 10/07/19 09:15 Allergies Allergy/AdvReac Type Severity Reaction Status Date / Time codeine Allergy Unknown RASH/BLISTE Verified 10/07/19 09:35 RS Home Medications Medication Instructions Recorded Confirmed Type albuterol sulfate 90 mcg/actuation 1 puff INHALATION Q4H PRN 05/24/19 10/07/19 History aerosol inhaler amlodipine 5 mg tablet 5 mg PO DAILY 05/24/19 10/07/19 History aspirin 81 mg chewable tablet 81 mg PO DAILY 05/24/19 10/07/19 History hydralazine 50 mg tablet 50 mg PO TID 05/24/19 10/07/19 History simvastatin 20 mg tablet 20 mg PO HS 05/24/19 10/07/19 History bumetanide 2 mg PO DAILY 09/06/19 10/07/19 History calcitriol 0.25 mcg PO DAILY 09/06/19 10/07/19 History clopidogrel [Plavix] 75 mg PO DAILY 09/06/19 10/07/19 History spironolactone [Aldactone] 50 mg PO BID #30 tablet 09/13/19 10/07/19 Rx hydrocodone-acetaminophen 1 - 2 tablet PO Q6H PRN #20 tablet 09/23/19 10/07/19 Rx Laboratory Tests 10/06/19 10/06/19 10/06/19 23:27 23:27 23:27 WBC 6.6 K/mm3 K/mm3 (4.5-10.0) RBC 2.04 M/mm3 L M/mm3 (4.6-6.20) Hgb 5.9 g/dL L* D g/dL (14.0-18.0) Hct 18.3 % L* % (42.0-52.0) MCV 89.7 fl fl (80-100) MCH 28.9 pg pg (26-34) MCHC 32.2 g/dl g/dl (32-36) RDW 13.5 % % (11.5-14.5) Plt Count 169 k/mm3 k/mm3 (150-375) MPV 9.3 fl fl (7.4-10.4) Immature Gran % (Auto) 1.2 % H % (0-0.5) Neut % (Auto) 82.3 % H % (45.5-73.1) Lymph % (Auto) 5.6 % L % (18.3-44.2) [place] % (Auto) 7.4 % % (2.6-8.5) Eos % (Auto) 2.7 % % (0-4.4) Baso % (Auto) 0.8 % % (0.2-1.2) Lymph # (Auto) 0.37 K/mm3 L K/mm3 (0.9-3.2) [place] # (Auto) 0.5 K/mm3 K/mm3 (0.1-0.6) Eos # (Auto) 0.2 K/mm3 K/mm3 (0-0.3) Baso # (Auto) 0.1 K/mm3 K/mm3 (0.0-0.1) Abs Immat Gran (auto) 0.08 K/mm3 H K/mm3 (0.00-0.031) Absolute Neuts (auto) 5.4 K/mm3 K/mm3 (1.3-6.7) Absolute Nucleated RBC 0.0 K/mm3 K/mm3 (0.0-0.012) Nucleated RBC % 0.0 % % (0.0-0.2) PT 14.4 Seconds Seconds (11.1-14.7) INR 1.2 APTT 31.9 SECONDS SECONDS (22.3-36.8) Sodium Cancelled Potassium Cancelled Chloride Cancelled Carbon Dioxide Cancelled Anion Gap Cancelled BUN Cancelled Creatinine Cancelled Estim Creat Clear Calc Cancelled Estimated GFR Cancelled Glucose Cancelled Calcium Cancelled Magnesium Total Bilirubin Cancelled AST Cancelled ALT Cancelled Alkaline Phosphatase Cancelled Troponin I Total Protein Cancelled Albumin Cancelled Lipase Urine Color Urine Appearance Urine pH Ur Specific [place] Urine Protein Urine Glucose (UA) Urine Ketones Ur Blood (Man) Urine Nitrate Urine Bilirubin Urine Urobilinogen Leukocyte Esterase Rfl Blood Type Antibody Screen Crossmatch 10/06/19 10/06/19 10/07/19 23:27 23:32 08:28 WBC RBC Hgb Hct MCV
[2019-10-07] MEDS: ONDANSETRON INJ 4 MG/2 ML VIAL IV PUSH ×3 (10:14→20:26)
--- NOTE | 2019-10-07 11:10 | PC.NURSE ---
Patient returned to room following EGD.
[2019-10-07] MEDS: PEG (High)/E-LYTE SOLN 4,000 ML BTL 4000 ML PO (12:19)
[2019-10-07 13:06] LABS: Hematocrit 24.3 % (42.0-52.0); Hemoglobin 7.9 g/dL (14.0-18.0)
--- NOTE | 2019-10-07 13:21 | PM.CNNEP ---
Assessment and Plan Assessment and plan (1) Acute on chronic kidney failure: Code(s): N17.9 - Acute kidney failure, unspecified; N18.9 - Chronic kidney disease, unspecified Status: Acute Assessment and Plan: Naldo has chronic kidney disease. This is most likely due to hypertension. He also is on chronic diuretics and so could have chronic pre renal azotemia. He has got kidney stone disease as well and may have some contribution from that. His renal function has deteriorated over the last year so. His creatinine started off a little bit below 4 and then was 7 last admission and now is above 8. He has nausea for 2 weeks. I suspect that the nausea is uremic. He also has some bleeding and possibly has uremic platelets as well. The acute component of his kidney disease may just be chronic progression. To be sure I will order a renal ultrasound. His urinalysis is benign. He does not seem to have an infection. I discussed dialysis with the patient at length. He seems to be on board for this. He understands this kidneys are wearing out that he is going to need it. We discussed at length. I will consult surgery to place a tunneled dialysis catheter tomorrow or Friday. He was recently on Plavix but he is not getting this now. (2) GI bleed: Code(s): K92.2 - Gastrointestinal hemorrhage, unspecified Status: Acute Assessment and Plan: The patient had a GI bleed. This seems to have calmed down. Upper scope is unremarkable and he will have a colonoscopy tomorrow. (3) Anemia: Code(s): D64.9 - Anemia, unspecified Status: Acute Assessment and Plan: He has anemia due to blood loss but also due to chronic kidney disease. He might have anemia of chronic disease as well due to the cirrhosis. We can start EPO when he starts dialysis. We can check iron is. (4) Hypertension: Qualifiers: Hypertension type: essential hypertension Qualified Code(s): I10 - Essential (primary) hypertension Code(s): I10 - Essential (primary) hypertension Status: Acute Assessment and Plan: Blood pressure is fairly well controlled between 120 and 150. Will follow him on the current medications. (5) Cirrhosis of liver with ascites: Qualifiers: Hepatic cirrhosis type: unspecified hepatic cirrhosis Qualified Code(s): K74.60 - Unspecified cirrhosis of liver; R18.8 - Other ascites Code(s): K74.60 - Unspecified cirrhosis of liver; R18.8 - Other ascites Status: Chronic Assessment and Plan: Gastroenterology is following (6) Nephrolithiasis: Code(s): N20.0 - Calculus of kidney Status: Acute Assessment and Plan: will check an ultrasound to make sure he is not obstructed again. History of Present Illness Reason for Consult Consult date: 10/07/19 Chief Complaint Chief complaint: GI bleed, anemia, CKD, elevated troponin History of Present Illness Narrative: Naldo is a very pleasant 69-year-old gentleman who has chronic kidney disease. He was in the hospital about [address] Piper. He has also seen Dr. Piper in the office over the last few years. Three weeks ago the patient came in the hospital because he had a kidney stone. This was removed by Urology. His creatinine was high at that time. His baseline creatinine had been in the high threes. However in the hospital at that time his creatinine was around 7. It was hoped that by treating the stone the kidney function might improve but it did not. He did not have any uremic symptoms and so he was sent home to follow up in the office for dialysis planning. after discharge the patient had felt pretty well. Then 2 weeks ago he started developing nausea. He did not try to do anything to help this out. About 3 days ago the patient started bleeding rectally. It was bright red blood for the 1st 2 days and then darker red blood
--- NOTE | 2019-10-07 14:41 | PM.CNGS ---
Assessment and Plan Assessment and plan (1) Acute on chronic kidney failure: Code(s): N17.9 - Acute kidney failure, unspecified; N18.9 - Chronic kidney disease, unspecified Status: Acute Assessment and Plan: Nephrology requesting placement of a tunneled dialysis catheter in the next 1-2 days to initiate hemodialysis. The patient has not required dialysis in the past. Description of the procedure, risks, benefits, indications, and expected outcomes were discussed with the patient in detail. All questions were answered. The patient verbalized understanding and is agreeable to proceed. I discussed the case with Dr. Duong and he will add him onto the surgery schedule tomorrow afternoon. The patient will already be NPO after midnight for his planned colonoscopy. We will need to keep him NPO after the colonoscopy in preparation for surgery tomorrow afternoon. Thank you for allowing us to see the patient in consultation. (2) GI bleed: Code(s): K92.2 - Gastrointestinal hemorrhage, unspecified Status: Acute Assessment and Plan: GI following. Normal EGD today. Planning for colonoscopy tomorrow. Trend H/H. (3) Anemia: Code(s): D64.9 - Anemia, unspecified Status: Acute Assessment and Plan: Hgb 7.9 s/p transfusion of 2 units PRBCs. Continue to trend labs. (4) Antiplatelet or antithrombotic long-term use: Code(s): Z79.02 - termite helper (current) use of antithrombotics/antiplatelets Status: Acute Assessment and Plan: Plavix currently on hold. (5) Coronary artery 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: Code(s): I25.810 - Atherosclerosis of coronary artery bypass graft(s) without angina pectoris Status: Acute (6) Chronic diastolic (congestive) heart failure: Code(s): I50.32 - Chronic diastolic (congestive) heart failure Status: Chronic (7) PAF (paroxysmal atrial fibrillation): Code(s): I48.0 - Paroxysmal atrial fibrillation Status: Chronic (8) Cirrhosis of liver with ascites: Qualifiers: Hepatic cirrhosis type: unspecified hepatic cirrhosis Qualified Code(s): K74.60 - Unspecified cirrhosis of liver; R18.8 - Other ascites Code(s): K74.60 - Unspecified cirrhosis of liver; R18.8 - Other ascites Status: Chronic Additional Plan Discussed the patient's case and plan of care with Dr. Duong. History of Present Illness Consult details Consult date: 10/07/19 Reason for consult: central line (Placement of tunneled dialysis catheter) Requesting physician: Wilfredo House MD Narrative: This is a 69-year-old male with multiple medical problems, including a history of coronary artery disease, chronic kidney disease, hypertension, hyperlipidemia, liver cirrhosis with ascites, paroxysmal atrial fibrillation, congestive heart failure, and obstructive sleep apnea. He came into the emergency department last night for evaluation of generalized weakness and fatigue. The patient also reports having bloody stools for 3-4 days prior to admission that have now changed to dark stools. He was found to have a hemoglobin of 5.9 on admission and has received 2 units of packed red blood cells. Hemoglobin is now up to 7.9. He was also found to have a creatinine of 8.1 and BUN 99 with also hyperkalemia. The patient was admitted to the Hospitalist service. Gastroenterology and Nephrology have both been consulted. He had an EGD today, which was normal with no explanation of the GI bleeding. He is scheduled for a colonoscopy tomorrow and is currently working on drinking the bowel prep. Nephrology is following the patient and are planning on moving forward with hemodialysis. They have requested our service to be consulted for placement of a tunneled dialysis catheter. The patient is now being seen on the medical floor. He currently reports nausea that he associates with drinking the bowel prep, but no vomiting. He still
[2019-10-07 14:47] LABS: Iron 180 ug/dL (49-181)
[2019-10-07 14:56] LABS: Percent Iron Saturation 93 % (20-50)
--- NOTE | 2019-10-07 16:22 | PM.IMPN ---
Progress Note: A&P Assessment and Plan (1) Symptomatic anemia: Code(s): D64.9 - Anemia, unspecified Status: Acute Assessment and Plan: Appears to be secondary to acute GI Bleeding. Continue blood transfusion. Monitor H/H, transfuse prn. 10/07/19 16:22 69-year-old male with history of liver cirrhosis secondary to BURROWS with ascites requiring monthly paracentesis however patient states abdominal pain is minimal and of shortness of breath not requiring any paracentesis, patient has a history of stage 4 chronic kidney disease is getting worse his creatinine has risen to 8 today, patient is seen by Dr. House and further recommendation to follow patient presented emergency department complaint rectal bleeding with black tarry stool upon arrival to emergency depart patient hemoglobin was 5.9, patient was given 2 units of pack RBC, patient was seen by GI was taken to the GI lab and had a EGD this more which did not show any source of bleeding and patient is scheduled colonoscopy tomorrow, currently patient denies any abdominal pain nausea or vomiting fever or chills (2) GI bleed: Qualifiers: GI bleed type/associated pathology: unspecified gastrointestinal hemorrhage type Qualified Code(s): K92.2 - Gastrointestinal hemorrhage, unspecified Code(s): K92.2 - Gastrointestinal hemorrhage, unspecified Status: Acute Assessment and Plan: Likely upper GI bleed as he has had black stools. Check FOBT. Fall precautions. Monitor H/H, transfuse prn. NPO. Protonix IV drip, Octreotide IV drip. GI has been consulted and will evaluate in am. (3) Elevated troponin: Code(s): R79.89 - Other specified abnormal findings of blood chemistry Status: Acute Assessment and Plan: No chest pain. Troponin leak is likely secondary to chronic renal failure. Trend troponin. Telemetry. Monitor for chest pain. (4) Cirrhosis of liver with ascites: Qualifiers: Hepatic cirrhosis type: unspecified hepatic cirrhosis Qualified Code(s): K74.60 - Unspecified cirrhosis of liver; R18.8 - Other ascites Code(s): K74.60 - Unspecified cirrhosis of liver; R18.8 - Other ascites Status: Chronic Assessment and Plan: The patient will need a paracentesis when he is medically stable. Continue GI recommendations. (5) Hyperkalemia: Code(s): E87.5 - Hyperkalemia Status: Acute Assessment and Plan: Likely secondary to chronic renal failure. Monitor serum potassium, we will consider kayexalate, sodium bicarbonate, Insulin and dextrose. (6) Acute renal failure superimposed on stage 4 chronic kidney disease: Qualifiers: Acute renal failure type: unspecified Qualified Code(s): N17.9 - Acute kidney failure, unspecified; N18.4 - Chronic kidney disease, stage 4 (severe) Code(s): N17.9 - Acute kidney failure, unspecified; N18.4 - Chronic kidney disease, stage 4 (severe) Status: Acute Assessment and Plan: Monitor renal function. Continue blood transfusion. IV hydration. Monitor renal function and urine output. Avoid nephrotoxic agents. (7) PAF (paroxysmal atrial fibrillation): Code(s): I48.0 - Paroxysmal atrial fibrillation Status: Chronic Assessment and Plan: s/p Watchman procedure. The patient has not been on any anticoagulants due to previous GI bleed. Continue ASA therapy once GI bleed resolves. (8) Chronic diastolic (congestive) heart failure: Code(s): I50.32 - Chronic diastolic (congestive) heart failure Status: Chronic Assessment and Plan: Monitor fluid status and vitals closely. Continue home CHF meds when appropriate. (9) Hyperlipidemia: Qualifiers: Hyperlipidemia type: unspecified Qualified Code(s): E78.5 - Hyperlipidemia, unspecified Code(s): E78.5 - Hyperlipidemia, unspecified Status: Acute Assessment and Plan: Resume simvastatin when appropriate. (10) Hypertension:
--- NOTE | 2019-10-07 18:32 | PC.NURSE ---
This patient, Naldo Lowry, was transferred to [facility] on 10/07/19 at 1832. Personal belongings sent with patient. Report given to ADI Hsu. Appropriate documentation sent with patient.
[2019-10-07 19:37] LABS: Hematocrit 23.7 % (42.0-52.0); Hemoglobin 7.9 g/dL (14.0-18.0)
[2019-10-08] VITALS (13 sets, daily range): BP systolic 131–151; BP diastolic 49–57; PULSE 56–70; RESP 10–19; TEMP 36.6–37.4; O2SAT 93–100
[2019-10-08] MEDS: ONDANSETRON INJ 4 MG/2 ML VIAL IV PUSH ×3 (01:55→22:45)
--- NOTE | 2019-10-08 02:31 | PC.NURSE ---
have continued to encourage to drink bowel prep and have cup at bedside. patient refuses to drink and states that he refuses to do colonoscopy. had 200 cc emesis at 2130 and another 100cc green bile emesis at 0200. has recieved 2 iv doses of prn zofran this shift. still no bm noted this shift.
--- NOTE | 2019-10-08 02:44 | PC.NURSE ---
10/07/2019 at 2256: started bowel prep via left nare ng tube at 1930. bolus 240 cc q 30min. c/o nausea. prn zofran given iv. with out relief. had 200cc projectile green bile emesis at 2100. dr day notitified and he instructed to slown down prep administration to mitigate n/v. pt now refusing prep and pulled out ng tube. said he would try to drink prep but is still nauseated at this time. cup of prep at bs in reach and encouraged. will contiinue prn zofran as needed.
--- NOTE | 2019-10-08 06:33 | PC.NURSE ---
notified dr day of patients poor bowel prep and refusal to drink any more prep after 0200 after his second emesis of the shift and that patient has not had a bm this shift but is passing gas. no active bleeding noted overnight. dr day said he would talk to patient on am rounds.
[2019-10-08 06:43] LABS: Albumin Level 2.4 g/dL (3.5-5.1); Anion Gap 16.7 mmol/L (7-16); Blood Urea Nitrogen 94 mg/dL (9-20); Calcium 7.2 mg/dL (8.4-10.2); Carbon Dioxide 20 mmol/L (22-30); Chloride 105 mmol/L (98-107); Estimated CRCL calculation 8 ml/min; Estimated Glomerular Filt Rate 7; Glucose 81 mg/dL (75-110); Phosphorus 8.9 mg/dL (2.5-4.5); Potassium 5.7 mmol/L (3.4-5.0); Sodium 136 mmol/L (137-145)
[2019-10-08 08:54] LABS: Hematocrit 22.3 % (42.0-52.0); Hemoglobin 7.5 g/dL (14.0-18.0); Mean Corpuscular HGB Conc 33.6 g/dl (32-36); Mean Corpuscular Volume 86.1 fl (80-100); Mean Platelet Volume 8.5 fl (7.4-10.4); Platelet Count Result 123 k/mm3 (150-375); Red Blood Count 2.59 M/mm3 (4.6-6.20); Red Cell Distribution Width 14.6 % (11.5-14.5); White Blood Count 7.9 K/mm3 (4.5-10.0)
[2019-10-08 09:18] LABS: Albumin Level 2.2 g/dL (3.5-5.1); Alkaline Phosphatase 58 U/L (38-126); Anion Gap 18.6 mmol/L (7-16); Aspartate Amino Transferase 12 U/L (17-59); Bilirubin,Total 0.5 mg/dL (0.2-1.3); Blood Urea Nitrogen 90 mg/dL (9-20); Calcium 7.1 mg/dL (8.4-10.2); Carbon Dioxide 19 mmol/L (22-30); Chloride 105 mmol/L (98-107); Estimated CRCL calculation 8 ml/min; Estimated Glomerular Filt Rate 6; Glucose 71 mg/dL (75-110); Magnesium 2.1 mg/dL (1.6-2.3); Potassium 5.6 mmol/L (3.4-5.0); Sodium 137 mmol/L (137-145)
[2019-10-08 09:34] LABS: Alanine Aminotransferase < 4 U/L (4-50)
--- NOTE | 2019-10-08 10:01 | WPDGIPROGNO ---
Progress Note: A&P Additional Plan Patient reports no additional bleeding. He was not able to tolerate preparation for colonoscopy. Apparently developed nausea. Physical exam reveals him to be alert PERR. Afebrile. Anicteric. Lungs are clear. Heart without murmur. Abdomen with mild distention. Bowel sounds are present soft nontender. Impression 1. GI bleeding. EGD was unremarkable. Colonoscopy limited by patient's refusal to take preparation. Plan for several day preparation and hopefully colonoscopy on Friday. Continue to monitor hemoglobin. Transfuse if needed. If colonoscopy continues to be refused then barium enema is an alternative. 2. Cirrhosis of liver. Attributed to BURROWS. Continue supportive care. 3. Ascites. Plan is for low-salt diet. Continue diuresis if at all possible. I would limit paracentesis to the minimum. Only when it inhibits his respiratory status. Low-salt diet and diuresis encouraged. Patient remains on Aldactone 3. Chronic kidney disease. Patient has significant azotemia. Plan is for shunt placement today. Dialysis to be considered. Subjective Date/time seen: 10/08/19 10:01 Objective Data Vital Signs Vital Signs: Vital Signs - 24 hr 10/07/19 10:37 10/07/19 10:47 10/07/19 10:57 Temperature Pulse Rate 63 61 60 Respiratory Rate 17 15 15 Blood Pressure 123/50 L 124/52 L 132/57 L Pulse Oximetry 96 95 95 10/07/19 12:00 10/07/19 16:00 10/07/19 20:00 Temperature 97.9 F 97.9 F 97.3 F L Pulse Rate 59 L 59 L 58 L Respiratory Rate 20 20 16 Blood Pressure 147/54 H 138/5 L 145/53 H Pulse Oximetry 97 97 96 10/08/19 00:00 10/08/19 04:00 10/08/19 06:27 Temperature 99.4 F Pulse Rate 62 68 64 Respiratory Rate 14 Blood Pressure 135/55 L Pulse Oximetry 94 10/08/19 08:00 10/08/19 09:52 Temperature 98.6 F 97.8 F Pulse Rate 64 Respiratory Rate 16 Blood Pressure 132/49 L Pulse Oximetry 94 Intake/Output Intake/Output: Intake & Output 10/05/19 10/06/19 10/07/19 10/08/19 23:59 23:59 23:59 23:59 Intake Total 1935 300 Output Total 1150 1350 Balance 785 -1050 Meds/Results Medications: Active Medications Generic Name Dose Route Start Last Admin Trade Name Jonathanq PRN Reason Stop Dose Admin Fentanyl Citrate 25 mcg 10/08/19 08:56 Sublimaze IV PUSH Q2M PRN Pain Hydromorphone HCl 0.25 mg 10/08/19 08:56 Dilaudid Inj IV PUSH Q5M PRN Pain Lactated Ringer's 1,000 mls @ 30 mls/hr 10/08/19 09:00 Lr - Lactated Ringers Iv IV CONT .Q24H NOÉ Lactated Ringer's 1,000 mls @ 30 mls/hr 10/08/19 09:00 Lr - Lactated Ringers Iv IV CONT .Q24H NOÉ Ondansetron HCl 4 mg 10/07/19 14:16 10/08/19 01:55 Zofran Inj IV PUSH 4 mg Q4H PRN Administration Nausea And Vomiting Ondansetron HCl 4 mg 10/08/19 08:56 Zofran Inj IV PUSH ONCE PRN Nausea Radiology Results: ITS Impressions Abdomen X-Ray 10/07/19 18:11 IMPRESSION: 1. Nasogastric tube in the stomach. Labs Labs: Laboratory Results - last 24 hr 10/07/19 10/07/19 10/07/19 12:54 13:48 19:29 WBC RBC Hgb 7.9 L 7.9 L Hct 24.3 L 23.7 L MCV MCH MCHC RDW Plt Count MPV Sodium Potassium Chloride Carbon Dioxide Anion Gap BUN Creatinine Estim Creat Clear Calc Estimated GFR Glucose Calcium Phosphorus Magnesium Iron 180 TIBC 193 L % Saturation 93 H Ferritin 102.00 Total Bilirubin AST ALT Alkaline Phosphatase Total Protein Albumin 10/08/19 10/08/19 10/08/19 05:46 08:43 08:43 WBC 7.9 RBC 2.59 L Hgb 7.5 L Hct 22.3 L MCV 86.1 MCH 29.0 MCHC 33.6 RDW 14.6 H Plt Count 123 L MPV 8.5 Sodium 136 L 137 Potassium 5.7 H 5.6 H Chloride 105 105 Carbon Dioxide 20 L 19 L Anion Gap 16.7 H 18.6 H BUN 94 H 90 H Creatinine 8.10 H 8.40 H Estim Cre
--- NOTE | 2019-10-08 11:15 | WPDANESEPPF ---
Anes - Initial Pre Proc Eval Procedure: Operation Date: 10/07/19 10:30 Proposed Procedures p Esophagogastroduodenoscopy - Cb Hull MD Operation Date: 10/08/19 10:30 Proposed Procedures p Colonoscopy - Cb Hull MD Operation Date: 10/08/19 15:00 Proposed Procedures p Insertion Tunnelled Dialysis Catheter - Elsa Duong MD Date/Time: 10/08/19 11:15 Surgeon: Rick Lance MD Pre Op Diagnosis: GI bleed, anemia, CKD, elevated troponin Patient Data Age: 69 Gender: M Height: 1.8 m Weight: 87 kg Last Vital Signs Temp 36.6 C 10/08/19 09:52 Pulse 65 10/08/19 08:00 Resp 16 10/08/19 08:00 BP 132/49 L 10/08/19 08:00 Pulse Ox 94 10/08/19 08:00 Allergies Allergy/AdvReac Type Severity Reaction Status Date / Time codeine Allergy Unknown RASH/BLISTE Verified 10/07/19 09:35 RS Home Medications Medication Instructions Recorded Confirmed Type albuterol sulfate 90 mcg/actuation 1 puff INHALATION Q4H PRN 05/24/19 10/07/19 History aerosol inhaler amlodipine 5 mg tablet 5 mg PO DAILY 05/24/19 10/07/19 History aspirin 81 mg chewable tablet 81 mg PO DAILY 05/24/19 10/07/19 History hydralazine 50 mg tablet 50 mg PO TID 05/24/19 10/07/19 History simvastatin 20 mg tablet 20 mg PO HS 05/24/19 10/07/19 History bumetanide 2 mg PO DAILY 09/06/19 10/07/19 History calcitriol 0.25 mcg PO DAILY 09/06/19 10/07/19 History clopidogrel [Plavix] 75 mg PO DAILY 09/06/19 10/07/19 History spironolactone [Aldactone] 50 mg PO BID #30 tablet 09/13/19 10/07/19 Rx hydrocodone-acetaminophen 1 - 2 tablet PO Q6H PRN #20 tablet 09/23/19 10/07/19 Rx Laboratory Tests 10/07/19 10/07/19 10/07/19 12:54 13:48 19:29 WBC RBC Hgb 7.9 g/dL L g/dL 7.9 g/dL L g/dL (14.0-18.0) (14.0-18.0) Hct 24.3 % L % 23.7 % L % (42.0-52.0) (42.0-52.0) MCV MCH MCHC RDW Plt Count MPV Sodium Potassium Chloride Carbon Dioxide Anion Gap BUN Creatinine Estim Creat Clear Calc Estimated GFR Glucose Calcium Phosphorus Magnesium Iron 180 ug/dL ug/dL (49-181) TIBC 193 ug/dL L ug/dL (265-497) % Saturation 93 % H % (20-50) Ferritin 102.00 ng/mL ng/mL (11.1-264) Total Bilirubin AST ALT Alkaline Phosphatase Total Protein Albumin 10/08/19 10/08/19 10/08/19 05:46 08:43 08:43 WBC 7.9 K/mm3 K/mm3 (4.5-10.0) RBC 2.59 M/mm3 L M/mm3 (4.6-6.20) Hgb 7.5 g/dL L g/dL (14.0-18.0) Hct 22.3 % L % (42.0-52.0) MCV 86.1 fl fl (80-100) MCH 29.0 pg pg (26-34) MCHC 33.6 g/dl g/dl (32-36) RDW 14.6 % H % (11.5-14.5) Plt Count 123 k/mm3 L k/mm3 (150-375) MPV 8.5 fl fl (7.4-10.4) Sodium 136 mmol/L L mmol/L 137 mmol/L mmol/L (137-145) (137-145) Potassium 5.7 mmol/L H mmol/L 5.6 mmol/L H mmol/L (3.4-5.0) (3.4-5.0) Chloride 105 mmol/L mmol/L 105 mmol/L mmol/L (98-107) (98-107) Carbon Dioxide 20 mmol/L L mmol/L 19 mmol/L L mmol/L (22-30) (22-30) Anion Gap 16.7 mmol/L H mmol/L 18.6 mmol/L H mmol/L (7-16) (7-16) BUN 94 mg/dL H mg/dL 90 mg/dL H mg/dL (9-20) (9-20) Creatinine 8.10 mg/dL H mg/dL 8.40 mg/dL H mg/dL (0.7-1.3) (0.7-1.3) Estim Creat Clear Calc 8 ml/min ml/min 8 ml/min ml/min Estimated GFR 7 L 6 L (59 - ) (59 - ) Glucose 81 mg/dL mg/dL 71 mg/dL L mg/dL (75-110) (75-110) Calcium 7.2 mg/dL L mg/dL 7.1 mg/dL L mg/dL (8.4-10.2) (8.4-10.2) Phosphorus 8.9 mg/dL H mg/dL (2.5-4.5) Magnesium 2.1 mg/dL mg/dL
--- NOTE | 2019-10-08 13:29 | PM.PNNEP ---
Progress Note: A&P Assessment and Plan (1) Acute on chronic kidney failure: Code(s): N17.9 - Acute kidney failure, unspecified; N18.9 - Chronic kidney disease, unspecified Status: Acute Assessment and Plan: Naldo has chronic kidney disease. This is most likely due to hypertension. He also is on chronic diuretics and so could have chronic pre renal azotemia. He has got kidney stone disease as well and may have some contribution from that. His renal function has deteriorated gradually over the last couple of years. He is likely reached end-stage kidneys. His ultrasound is pending. We discussed at length. He has talked about the type of dialysis with Dr. Piper and has decided to do peritoneal dialysis. I will see if Dr. Duong can put a PD catheter in instead of a hemo catheter this afternoon. We can do small volumes with him lying flat to simulate an urgent start. If not we can start him on hemo and switch to PD down the line. I sent a message to Dr. Duong to give me a call (2) GI bleed: Code(s): K92.2 - Gastrointestinal hemorrhage, unspecified Status: Acute Assessment and Plan: The patient had a GI bleed. This seems to have calmed down. Upper scope is unremarkable and he will have a colonoscopy Friday. Hemoglobin is stable in the 7s (3) Anemia: Code(s): D64.9 - Anemia, unspecified Status: Acute Assessment and Plan: He has anemia due to blood loss but also due to chronic kidney disease. He might have anemia of chronic disease as well due to the cirrhosis. We can start EPO when he starts dialysis. We can check irons (4) Hypertension: Qualifiers: Hypertension type: essential hypertension Qualified Code(s): I10 - Essential (primary) hypertension Code(s): I10 - Essential (primary) hypertension Status: Acute Assessment and Plan: Blood pressure is fairly well controlled between 120 and 150. Will follow him on the current medications. (5) Cirrhosis of liver with ascites: Qualifiers: Hepatic cirrhosis type: unspecified hepatic cirrhosis Qualified Code(s): K74.60 - Unspecified cirrhosis of liver; R18.8 - Other ascites Code(s): K74.60 - Unspecified cirrhosis of liver; R18.8 - Other ascites Status: Chronic Assessment and Plan: Gastroenterology is following (6) Nephrolithiasis: Code(s): N20.0 - Calculus of kidney Status: Acute Assessment and Plan: will check an ultrasound to make sure he is not obstructed again. Subjective Date/time seen: 10/08/19 13:30 Interval history: Patient is alert. He feels okay. Still some nausea. He was unable to drink the prep for colonoscopy and so colonoscopy was canceled. He is scheduled for a PermCath this afternoon. Review of Systems Cardiovascular: Cardiovascular: Reports no additional cardiovascular complaints Respiratory: Respiratory: Reports no additional respiratory complaints Gastrointestinal: Gastrointestinal: Reports no additional gastrointestinal complaints Genitourinary: Genitourinary: Reports no additional male genitourinary complaints Exam Narrative: Exam Narrative: WDWN in NAD skin no rash head ncat lungs clear cor reg no rub abd BS+ nontender and soft ext no edema. Objective Data Vital Signs Vital Signs: Vital Signs - 24 hr 10/07/19 16:00 10/07/19 20:00 10/08/19 00:00 Temperature 36.6 C 36.3 C L Pulse Rate 59 L 58 L 62 Respiratory Rate 20 16 Blood Pressure 138/5 L 145/53 H Pulse Oximetry 97 96 10/08/19 04:00 10/08/19 06:27 10/08/19 08:00 Temperature 37.4 C 37.0 C Pulse Rate 68 64 65 Respiratory Rate 14 16 Blood Pressure 135/55 L 132/49 L Pulse Oximetry 94 94 10/08/19 09:52 10/08/19 12:00 Temperature 36.6 C Pulse Rate 66 Respiratory Rate Blood Pressure Pulse Oximetry Intake/Output Intake/Output: Intake & Output 10/05/19
--- NOTE | 2019-10-08 13:55 | PC.NURSE ---
Patient is down to pre-op at this time via bed.
[2019-10-08] MEDS: SODIUM CHLORIDE 0.9% IV 500 ML 30 ML IV CONT (14:21)
--- NOTE | 2019-10-08 14:47 | PM.IMPN ---
Progress Note: A&P Assessment and Plan (1) Symptomatic anemia: Code(s): D64.9 - Anemia, unspecified Status: Acute Assessment and Plan: Appears to be secondary to acute GI Bleeding. Continue blood transfusion. Monitor H/H, transfuse prn. 10/08/19 14:47 69-year-old male with history of liver cirrhosis secondary to BURROWS with ascites requiring monthly paracentesis however patient states abdominal pain is minimal and of shortness of breath not requiring any paracentesis, patient has a history of stage 4 chronic kidney disease is getting worse his creatinine has risen to 8 on 10/06 , patient is seen by Dr. House patient may need temporary dialysis and catheter for dialysis, patient presented emergency department complaint rectal bleeding with black tarry stool upon arrival to emergency depart patient hemoglobin was 5.9, patient was given 2 units of pack RBC, patient was seen by GI was taken to the GI lab and had a EGD which did not show any source of bleeding and patient was scheduled colonoscopy today, however patient was not able to tolerate GoLYTELY for colonoscopy and it is postponed till Friday, today patient states feeling better compared to when he arrived, denies any pain nausea or vomiting or bleeding, states ascites does not bother him as much and denies any shortness of breath, patient seen by GI recommending MiraLax over the weekend to help prepare patient for colonoscopy on Friday, patient hemoglobin is stable (2) GI bleed: Qualifiers: GI bleed type/associated pathology: unspecified gastrointestinal hemorrhage type Qualified Code(s): K92.2 - Gastrointestinal hemorrhage, unspecified Code(s): K92.2 - Gastrointestinal hemorrhage, unspecified Status: Acute Assessment and Plan: Likely upper GI bleed as he has had black stools. Check FOBT. Fall precautions. Monitor H/H, transfuse prn. NPO. Protonix IV drip, Octreotide IV drip. GI has been consulted and will evaluate in am. (3) Elevated troponin: Code(s): R79.89 - Other specified abnormal findings of blood chemistry Status: Acute Assessment and Plan: No chest pain. Troponin leak is likely secondary to chronic renal failure. Trend troponin. Telemetry. Monitor for chest pain. (4) Cirrhosis of liver with ascites: Qualifiers: Hepatic cirrhosis type: unspecified hepatic cirrhosis Qualified Code(s): K74.60 - Unspecified cirrhosis of liver; R18.8 - Other ascites Code(s): K74.60 - Unspecified cirrhosis of liver; R18.8 - Other ascites Status: Chronic Assessment and Plan: The patient will need a paracentesis when he is medically stable. Continue GI recommendations. (5) Hyperkalemia: Code(s): E87.5 - Hyperkalemia Status: Acute Assessment and Plan: Likely secondary to chronic renal failure. Monitor serum potassium, we will consider kayexalate, sodium bicarbonate, Insulin and dextrose. (6) Acute renal failure superimposed on stage 4 chronic kidney disease: Qualifiers: Acute renal failure type: unspecified Qualified Code(s): N17.9 - Acute kidney failure, unspecified; N18.4 - Chronic kidney disease, stage 4 (severe) Code(s): N17.9 - Acute kidney failure, unspecified; N18.4 - Chronic kidney disease, stage 4 (severe) Status: Acute Assessment and Plan: Monitor renal function. Continue blood transfusion. IV hydration. Monitor renal function and urine output. Avoid nephrotoxic agents. (7) PAF (paroxysmal atrial fibrillation): Code(s): I48.0 - Paroxysmal atrial fibrillation Status: Chronic Assessment and Plan: s/p Watchman procedure. The patient has not been on any anticoagulants due to previous GI bleed. Continue ASA therapy once GI bleed resolves. (8) Chronic diastolic (congestive) heart failure: Code(s): I50.32 - Chronic diastolic (congestive) heart failure Status: Chronic Assessment and Plan: Monitor flu
[2019-10-08] MEDS: ceFAZolin 2 GM/D5W 50 ML 2 GM/50 ML BAG IVPB (14:51)
[2019-10-08] MEDS: LIDO 1%/EPINEPHRINE 1:100,000 20 ML VIAL INFILTRATE (15:31)
[2019-10-08] MEDS: HEPARIN SODIUM, PORCINE 10,000 UNITS/10 ML VIAL 10 UNITS IV PUSH (15:33)
[2019-10-08] MEDS: HEPARIN SODIUM 5,000 UNITS/ML VIAL 5000 UNITS IRRIGATION (15:34)
--- NOTE | 2019-10-08 15:50 | PM.PROC ---
Procedure Note - Detailed Date of procedure: 10/08/19 Pre-op diagnosis: GI bleed, anemia, CKD, elevated troponin renal failure Post-op diagnosis: same Procedure performed: placement of RIJ tunneled HD catheter 28 cm under both U/S and fluroscopic guidance Description of procedure: Patient was taken to the operating room and placed in the supine position. After adequate induction of general anesthesia, the patient was prepped and draped in normal sterile fashion. A time-out was then done to verify the patient's identity as well as the procedure being performed. I began by using the SonoSite and locating the right internal jugular vein. Once this was done, I localized the overlying skin. I then made a small incision in the skin. I then gained access into the right internal jugular vein with an 18 gauge needle. At this point, I threaded the guidewire into the right internal jugular vein. Placement of the guidewire was confirmed by both ultrasound and fluoroscopic guidance. I then went ahead and measured the 28 cm tunneled dialysis catheter to our stick site in the right neck. I then localized the tract going from the right chest to the right neck. I then made a small incision in the right chest and tunneled the catheter to the right neck. I then serially dilated the right internal jugular vein under fluoroscopic guidance. Once adequately dilated, I placed dilating sheath over the guidewire into the right internal jugular vein under fluoroscopic visualization. Once this was noted to be in good position, I removed both the guidewire and dilator, now just leaving the sheath in the vein. I then went ahead and fed the previously tunneled catheter into the sheath. Once the catheter was fed and positioned correctly, I went ahead and peeled the sheath away. Final fluoroscopic view showed the catheter in good position from its insertion point in the right chest to its termination in the right atrial caval junction. It was noted there was no kinking of the catheter. I was able to easily draw and flush from both ports of the catheter. I placed 2.2 and 2.3 cc of final heparin flush into each port as marked. The catheter was then sutured into place and the incision in the neck was closed with 4 O Monocryl subcuticular suture. The patient tolerated the procedure well and will be transferred to the recovery room in stable condition. Sterile dressing was placed on the catheter. Portable chest x-ray will be done in the recovery. Implants: 28 cm duraflow tunneled HD cath Anesthesia: GETNathalia Surgeon: Elsa Duong MD Estimated blood loss (mL): 10 Drains: No Packing: No Pathology: none sent Complications: No immediate complications Condition: stable Disposition: PACU Findings: first stick access in RIJ under U/S guidance
--- NOTE | 2019-10-08 16:08 | SUR.PHASEI ---
chest xray done.
--- NOTE | 2019-10-08 19:03 | WPDANESPN ---
Anes - Prog Note Post-Op Date/Time: 10/08/19 19:03 Cardiovascular status: normal Respiratory status: normal Airway patency: baseline Mental status: baseline Post-Op hydration status: normal Vital Signs: Last Vital Signs Temp 97.8 F 10/08/19 15:54 Pulse 60 10/08/19 16:45 Resp 10 L 10/08/19 16:45 BP 132/55 L 10/08/19 16:45 Pulse Ox 95 10/08/19 16:45 I/O: Intake & Output 10/08/19 10/08/19 10/08/19 07:59 15:59 23:59 Intake Total 300 0 0 Output Total 1150 200 275 Balance -850 -200 -275 Laboratory Tests 10/08/19 08:43 10/08/19 08:43 10/07/19 10/08/19 10/08/19 19:29 05:46 08:43 WBC 7.9 RBC 2.59 L Hgb 7.9 L 7.5 L Hct 23.7 L 22.3 L MCV 86.1 MCH 29.0 MCHC 33.6 RDW 14.6 H Plt Count 123 L MPV 8.5 Sodium 136 L Potassium 5.7 H Chloride 105 Carbon Dioxide 20 L Anion Gap 16.7 H BUN 94 H Creatinine 8.10 H Estim Creat Clear Calc 8 Estimated GFR 7 L Glucose 81 Calcium 7.2 L Phosphorus 8.9 H Magnesium Total Bilirubin AST ALT Alkaline Phosphatase Total Protein Albumin 2.4 L 10/08/19 08:43 WBC RBC Hgb Hct MCV MCH MCHC RDW Plt Count MPV Sodium 137 Potassium 5.6 H Chloride 105 Carbon Dioxide 19 L Anion Gap 18.6 H BUN 90 H Creatinine 8.40 H Estim Creat Clear Calc 8 Estimated GFR 6 L Glucose 71 L Calcium 7.1 L Phosphorus Magnesium 2.1 Total Bilirubin 0.5 AST 12 L ALT < 4 L Alkaline Phosphatase 58 Total Protein 5.0 L Albumin 2.2 L Patient Feedback: Patient satisfied with anesthetic care.
[2019-10-09] VITALS (25 sets, daily range): BP systolic 112–195; BP diastolic 23–91; PULSE 53–76; RESP 16–18; TEMP 36–37.1; O2SAT 94–96
[2019-10-09] MEDS: ONDANSETRON INJ 4 MG/2 ML VIAL IV PUSH ×4 (05:31→21:12)
[2019-10-09 06:33] LABS: Hematocrit 22.5 % (42.0-52.0); Hemoglobin 7.2 g/dL (14.0-18.0); Mean Corpuscular Hemoglobin 28.5 pg (26-34); Mean Corpuscular Volume 88.9 fl (80-100); Mean Platelet Volume 9.3 fl (7.4-10.4); Platelet Count Result 128 k/mm3 (150-375); Red Blood Count 2.53 M/mm3 (4.6-6.20); Red Cell Distribution Width 14.6 % (11.5-14.5); White Blood Count 7.9 K/mm3 (4.5-10.0)
[2019-10-09 06:50] LABS: Albumin Level 2.3 g/dL (3.5-5.1); Alkaline Phosphatase 57 U/L (38-126); Anion Gap 16.5 mmol/L (7-16); Aspartate Amino Transferase 14 U/L (17-59); Bilirubin,Total 0.4 mg/dL (0.2-1.3); Blood Urea Nitrogen 97 mg/dL (9-20); Calcium 7.2 mg/dL (8.4-10.2); Carbon Dioxide 19 mmol/L (22-30); Chloride 107 mmol/L (98-107); Estimated CRCL calculation 8 ml/min; Estimated Glomerular Filt Rate 6; Glucose 67 mg/dL (75-110); Potassium 5.5 mmol/L (3.4-5.0); Sodium 137 mmol/L (137-145)
--- NOTE | 2019-10-09 07:29 | WPDGIPROGNO ---
Progress Note: A&P Additional Plan Patient alert this morning. He continues to complain of nausea. No additional bleeding reported. patient had dialysis catheter placed surgically yesterday. Physical exam reveals patient to be alert. Vital signs are stable. Lungs are clear. Heart without murmur. Abdomen is obese. Modest distention noted. It is soft nontender. Labs reveal BUN and 97, creatinine 8.3, Hemoglobin 7.2, hematocrit 22.5, MCV 88. Impression 1. GI bleeding. Plan to proceed with colonoscopy Friday after MiraLax prep on Friday. EGD was unremarkable. No evidence for continued bleeding. Continue monitor hemoglobin transfuse as necessary. 2. Cirrhosis. [place] to be from BURROWS. Continue supportive care. 3. Ascites. Patient has ascites secondary to his cirrhosis. Currently not necessary to do paracentesis unless it becomes distended enough to affect his breathing. Would continue diuresis. Hopefully dialysis and fluid removal will also help is ascites. Low-salt diet advised. 4.. Azotemia. Patient has severe renal disease. Dialysis catheter in place. Nausea likely related to his azotemia. This likely contributed to his intolerance of colon preparation. Plan is for continued therapy by renal service. Subjective Date/time seen: 10/09/19 07:29 Objective Data Vital Signs Vital Signs: Vital Signs - 24 hr 10/08/19 08:00 10/08/19 09:52 10/08/19 12:00 Temperature 98.6 F 97.8 F Pulse Rate 65 66 Respiratory Rate 16 Blood Pressure 132/49 L Pulse Oximetry 94 10/08/19 14:11 10/08/19 15:54 10/08/19 16:15 Temperature 98.3 F 97.8 F Pulse Rate 64 70 63 Respiratory Rate 16 16 19 Blood Pressure 146/55 H 151/56 H 140/53 L Pulse Oximetry 94 100 100 10/08/19 16:30 10/08/19 16:45 10/08/19 19:05 Temperature 98.0 F Pulse Rate 59 L 60 58 L Respiratory Rate 12 10 L 16 Blood Pressure 131/57 L 132/55 L 142/53 H Pulse Oximetry 93 95 96 10/08/19 20:00 10/09/19 00:00 10/09/19 00:09 Temperature 98.1 F Pulse Rate 58 L 53 L 58 L Respiratory Rate 18 18 Blood Pressure 129/55 L Pulse Oximetry 94 94 10/09/19 04:00 10/09/19 04:50 Temperature 98.7 F Pulse Rate 58 L 61 Respiratory Rate 16 Blood Pressure 118/52 L Pulse Oximetry 94 Intake/Output Intake/Output: Intake & Output 10/06/19 10/07/19 10/08/19 10/09/19 23:59 23:59 23:59 23:59 Intake Total 1935 540 322 Output Total 1150 1625 250 Balance 785 -1085 72 Meds/Results Medications: Active Medications Generic Name Dose Route Start Last Admin Trade Name Freq PRN Reason Stop Dose Admin Ondansetron HCl 4 mg 10/07/19 14:16 10/09/19 05:31 Zofran Inj IV PUSH 4 mg Q4H PRN Administration Nausea And Vomiting Radiology Results: ITS Impressions Abdomen X-Ray 10/07/19 18:11 IMPRESSION: 1. Nasogastric tube in the stomach. Chest X-Ray 10/08/19 16:13 IMPRESSION: 1. Right internal jugular dialysis catheter ending with its tip in the right atrium. No pneumothorax. 2. Stable cardiomegaly. Central Venous Line 10/08/19 16:34 IMPRESSION: 1. Right internal jugular tunneled dialysis catheter insertion. Please refer to procedure note for full details. Labs Labs: Laboratory Results - last 24 hr 10/08/19 10/08/19 10/09/19 08:43 08:43 05:42 WBC 7.9 7.9 RBC 2.59 L 2.53 L Hgb 7.5 L 7.2 L Hct 22.3 L 22.5 L MCV 86.1 88.9 MCH 29.0 28.5 MCHC 33.6 32.0 RDW 14.6 H 14.6 H Plt Count 123 L 128 L MPV 8.5 9.3 Sodium 137 Potassium 5.6 H Chloride 105 Carbon Dioxide 19 L Anion Gap 18.6 H BUN 90 H Creatinine 8.40 H Estim Creat Clear Calc 8 Estimated GFR 6 L Glucose 71 L Calcium 7.1 L Magnesium 2.1 Total Bilirubin 0.5 AST 12 L ALT < 4 L Alkaline Phosphatase 58 Total Protein 5.0 L Albumin 2.2 L 10/09/19 05:42 WBC RBC Hgb Hct MCV MCH MCHC RDW Plt Count MPV Sodium 13
[2019-10-09 08:15] LABS: Alanine Aminotransferase < 6 U/L (4-50)
--- NOTE | 2019-10-09 10:41 | PC.NURSE ---
0945 patient voiced that the zofran decreased his nausea.
--- NOTE | 2019-10-09 14:11 | PM.PNNEP ---
Progress Note: A&P Assessment and Plan (1) Acute on chronic kidney failure: Code(s): N17.9 - Acute kidney failure, unspecified; N18.9 - Chronic kidney disease, unspecified Status: Acute Assessment and Plan: Naldo has chronic kidney disease. This is most likely due to hypertension. He also is on chronic diuretics and so could have chronic pre renal azotemia. He has got kidney stone disease as well and may have some contribution from that. His renal function has deteriorated gradually over the last couple of years. He is likely reached end-stage kidneys. His ultrasound is Shows no hydronephrosis the patient is on hemodialysis. He wants do peritoneal dialysis. We will get some education and he can get a catheter done as an outpatient. He wants to go to [place] dialysis unit. (2) GI bleed: Code(s): K92.2 - Gastrointestinal hemorrhage, unspecified Status: Acute Assessment and Plan: The patient had a GI bleed. Hemoglobin is still in the sevens. (3) Anemia: Code(s): D64.9 - Anemia, unspecified Status: Acute Assessment and Plan: He has anemia due to blood loss but also due to chronic kidney disease. He might have anemia of chronic disease as well due to the cirrhosis. Getting EPO. (4) Hypertension: Qualifiers: Hypertension type: essential hypertension Qualified Code(s): I10 - Essential (primary) hypertension Code(s): I10 - Essential (primary) hypertension Status: Acute Assessment and Plan: Blood pressures are somewhat wait labile. This may be related to dialysis, fluid shifts, anxiety, nausea. He is currently on no blood pressure medicines. Will restart his amlodipine and hydralazine. Also will start the Bumex but hold off on spironolactone for now. (5) Cirrhosis of liver with ascites: Qualifiers: Hepatic cirrhosis type: unspecified hepatic cirrhosis Qualified Code(s): K74.60 - Unspecified cirrhosis of liver; R18.8 - Other ascites Code(s): K74.60 - Unspecified cirrhosis of liver; R18.8 - Other ascites Status: Chronic Assessment and Plan: Gastroenterology is following (6) Nephrolithiasis: Code(s): N20.0 - Calculus of kidney Status: Acute Assessment and Plan: Sees Urology as an outpatient Subjective Date/time seen: 10/09/19 14:11 Interval history: Patient is alert. He feels okay. Still some nausea. On dialysis and tolerating it well. He is getting a short treatment. blood pressure is Labile. It ranges from 120 to 190. He was seen at 2:00 p.m. Review of Systems Cardiovascular: Cardiovascular: Reports no additional cardiovascular complaints Respiratory: Respiratory: Reports no additional respiratory complaints Gastrointestinal: Gastrointestinal: Reports no additional gastrointestinal complaints Genitourinary: Genitourinary: Reports no additional male genitourinary complaints Exam Narrative: Exam Narrative: WDWN in NAD skin no rash head ncat lungs clear cor reg no rub abd BS+ nontender and soft ext trace edema. Objective Data Vital Signs Vital Signs: Vital Signs - 24 hr 10/08/19 15:54 10/08/19 16:15 10/08/19 16:30 Temperature 36.6 C Pulse Rate 70 63 59 L Respiratory Rate 16 19 12 Blood Pressure 151/56 H 140/53 L 131/57 L Pulse Oximetry 100 100 93 10/08/19 16:45 10/08/19 19:05 10/08/19 20:00 Temperature 36.7 C Pulse Rate 60 58 L 58 L Respiratory Rate 10 L 16 18 Blood Pressure 132/55 L 142/53 H Pulse Oximetry 95 96 94 10/09/19 00:00 10/09/19 00:09 10/09/19 04:00 Temperature 36.7 C Pulse Rate 53 L 58 L 58 L Respiratory Rate 18 Blood Pressure 129/55 L Pulse Oximetry 94 10/09/19 04:50 10/09/19 07:52 10/09/19 08:00 Temperature 37.1 C Pulse Rate 61 61 61 Respiratory Rate 16 16 Blood Pressure 118/52 L Pulse Oximetry 94 94 10/09/19 08:05
[2019-10-09 14:47] LABS: Hepatitis B Surface Antigen Negative (Negative)
--- NOTE | 2019-10-09 14:52 | PM.IMPN ---
Progress Note: A&P Assessment and Plan (1) Symptomatic anemia: Code(s): D64.9 - Anemia, unspecified Status: Acute Assessment and Plan: Appears to be secondary to acute GI Bleeding. Continue blood transfusion. Monitor H/H, transfuse prn. 10/09/19 14:52 69-year-old male with history of liver cirrhosis secondary to BURROWS with ascites requiring monthly paracentesis however patient states abdominal pain is minimal and of shortness of breath not requiring any paracentesis, patient has a history of stage 4 chronic kidney disease is getting worse his creatinine has risen to 8 on 10/06 , patient is seen by Dr. House patient may need temporary dialysis and catheter for dialysis, patient presented emergency department complaint rectal bleeding with black tarry stool upon arrival to emergency depart patient hemoglobin was 5.9, patient was given 2 units of pack RBC, patient was seen by GI was taken to the GI lab and had a EGD which did not show any source of bleeding and patient was scheduled colonoscopy today, however patient was not able to tolerate GoLYTELY for colonoscopy and it is postponed till Friday, today patient still complains abdominal pain nausea vomiting patient is seen by Nephrology suspect his symptoms stemming from azotemia as patient has worsened kidney function patient is scheduled to have a dialysis today I believe this will improve his abdominal pain nausea or vomit and will be able to tolerate preparation for colonoscopy which is scheduled for Friday, patient denies any rectal bleeding denies any fever or chills (2) GI bleed: Qualifiers: GI bleed type/associated pathology: unspecified gastrointestinal hemorrhage type Qualified Code(s): K92.2 - Gastrointestinal hemorrhage, unspecified Code(s): K92.2 - Gastrointestinal hemorrhage, unspecified Status: Acute Assessment and Plan: Likely upper GI bleed as he has had black stools. Check FOBT. Fall precautions. Monitor H/H, transfuse prn. NPO. Protonix IV drip, Octreotide IV drip. GI has been consulted and will evaluate in am. (3) Elevated troponin: Code(s): R79.89 - Other specified abnormal findings of blood chemistry Status: Acute Assessment and Plan: No chest pain. Troponin leak is likely secondary to chronic renal failure. Trend troponin. Telemetry. Monitor for chest pain. (4) Cirrhosis of liver with ascites: Qualifiers: Hepatic cirrhosis type: unspecified hepatic cirrhosis Qualified Code(s): K74.60 - Unspecified cirrhosis of liver; R18.8 - Other ascites Code(s): K74.60 - Unspecified cirrhosis of liver; R18.8 - Other ascites Status: Chronic Assessment and Plan: The patient will need a paracentesis when he is medically stable. Continue GI recommendations. (5) Hyperkalemia: Code(s): E87.5 - Hyperkalemia Status: Acute Assessment and Plan: Likely secondary to chronic renal failure. Monitor serum potassium, we will consider kayexalate, sodium bicarbonate, Insulin and dextrose. (6) Acute renal failure superimposed on stage 4 chronic kidney disease: Qualifiers: Acute renal failure type: unspecified Qualified Code(s): N17.9 - Acute kidney failure, unspecified; N18.4 - Chronic kidney disease, stage 4 (severe) Code(s): N17.9 - Acute kidney failure, unspecified; N18.4 - Chronic kidney disease, stage 4 (severe) Status: Acute Assessment and Plan: Monitor renal function. Continue blood transfusion. IV hydration. Monitor renal function and urine output. Avoid nephrotoxic agents. (7) PAF (paroxysmal atrial fibrillation): Code(s): I48.0 - Paroxysmal atrial fibrillation Status: Chronic Assessment and Plan: s/p Watchman procedure. The patient has not been on any anticoagulants due to previous GI bleed. Continue ASA therapy once GI bleed resolves. (8) Chronic diastolic (congestive) heart failure: Code(s): I50.32 - Chr
[2019-10-09 15:04] LABS: Hepatitis B Surface Anti Res Negative
--- NOTE | 2019-10-09 15:12 | WPDANESPN ---
Anes - Prog Note Post-Op Date/Time: 10/09/19 15:12 Cardiovascular status: normal Respiratory status: normal Airway patency: baseline Mental status: baseline Post-Op hydration status: normal Vital Signs: Last Vital Signs Temp 36.6 C 10/09/19 14:59 Pulse 62 10/09/19 14:59 Resp 16 10/09/19 14:59 BP 148/55 H 10/09/19 14:59 Pulse Ox 96 10/09/19 14:59 Pain Score (VAS): 0/10. Patient resting in bed at time of assessment, appears comfortable. I/O: Intake & Output 10/08/19 10/09/19 10/09/19 23:59 07:59 15:59 Intake Total 240 322 480 Output Total 352 796 8664 Balance -35 72 -520 Laboratory Tests 10/09/19 05:42 10/09/19 05:42 10/09/19 10/09/19 10/09/19 05:42 05:42 13:27 WBC 7.9 RBC 2.53 L Hgb 7.2 L Hct 22.5 L MCV 88.9 MCH 28.5 MCHC 32.0 RDW 14.6 H Plt Count 128 L MPV 9.3 Sodium 137 Potassium 5.5 H Chloride 107 Carbon Dioxide 19 L Anion Gap 16.5 H BUN 97 H Creatinine 8.30 H Estim Creat Clear Calc 8 Estimated GFR 6 L Glucose 67 L Calcium 7.2 L Total Bilirubin 0.4 AST 14 L ALT < 6 Alkaline Phosphatase 57 Total Protein 5.0 L Albumin 2.3 L Hep Bs Antigen Negative Hep Bs Antibody Negative Post-procedural complaints: none Patient Feedback: Patient satisfied with anesthetic care.
[2019-10-09] MEDS: hydrALAZINE HCL 50 MG TABLET PO ×2 (15:42→21:14)
[2019-10-10] VITALS (15 sets, daily range): BP systolic 125–150; BP diastolic 30–58; PULSE 51–66; RESP 14–20; TEMP 36.2–37.4; O2SAT 94–99
[2019-10-10] MEDS: hydrALAZINE HCL 50 MG TABLET PO ×2 (05:48→21:58)
[2019-10-10 06:06] LABS: Mean Corpuscular HGB Conc 32.7 g/dl (32-36); Mean Corpuscular Hemoglobin 29.1 pg (26-34); Mean Corpuscular Volume 88.9 fl (80-100); Mean Platelet Volume 9.6 fl (7.4-10.4); Platelet Count Result 118 k/mm3 (150-375); Red Blood Count 2.34 M/mm3 (4.6-6.20); Red Cell Distribution Width 14.2 % (11.5-14.5); White Blood Count 6.9 K/mm3 (4.5-10.0)
[2019-10-10 06:37] LABS: Albumin Level 2.3 g/dL (3.5-5.1); Alkaline Phosphatase 55 U/L (38-126); Anion Gap 14.9 mmol/L (7-16); Aspartate Amino Transferase 16 U/L (17-59); Bilirubin,Total 0.6 mg/dL (0.2-1.3); Blood Urea Nitrogen 72 mg/dL (9-20); Calcium 7.2 mg/dL (8.4-10.2); Carbon Dioxide 19 mmol/L (22-30); Chloride 106 mmol/L (98-107); Estimated CRCL calculation 10 ml/min; Estimated Glomerular Filt Rate 8; Glucose 56 mg/dL (75-110); Potassium 4.9 mmol/L (3.4-5.0); Sodium 135 mmol/L (137-145)
[2019-10-10 06:45] LABS: Hematocrit 20.8 % (42.0-52.0); Hemoglobin 6.8 g/dL (14.0-18.0)
--- NOTE | 2019-10-10 06:57 | WPDGIPROGNO ---
Progress Note: A&P Additional Plan Patient states he is comfortable this morning. No additional bleeding reported. He denies abdominal pain. He started dialysis yesterday. Physical exam reveals patient to be alert. Vital signs are stable. HEENT exam unremarkable. He is anicteric. Lungs are clear to auscultation and percussion. Heart is without murmur or extra sounds. Abdomen slightly distended. Labs with a hemoglobin 6.8, hematocrit 20.8. BUN 72, creatinine 6.5. Impression 1. GI bleeding. EGD was unremarkable. Plan is for colonoscopy tomorrow after preparation today. 2. Cirrhosis of liver felt to be secondary to BURROWS. Plan is for supportive care. 3. Ascites. Plan is for diuresis if at all possible. Low-salt diet. Try to limit paracenteses. 4. Renal disease. Patient now on dialysis. This may help is nausea. Subjective Date/time seen: 10/10/19 06:57 Objective Data Vital Signs Vital Signs: Vital Signs - 24 hr 10/09/19 07:52 10/09/19 08:00 10/09/19 08:05 Temperature 98.0 F Pulse Rate 61 61 69 Respiratory Rate 16 18 Blood Pressure 143/57 H Pulse Oximetry 94 94 10/09/19 12:00 10/09/19 12:26 10/09/19 12:45 Temperature Pulse Rate 65 61 60 Respiratory Rate Blood Pressure 122/46 L 195/63 H Pulse Oximetry 10/09/19 13:00 10/09/19 13:07 10/09/19 13:15 Temperature 97.8 F Pulse Rate 66 76 67 Respiratory Rate 16 Blood Pressure 155/26 H 126/91 H 187/25 H Pulse Oximetry 10/09/19 13:30 10/09/19 13:45 10/09/19 14:00 Temperature Pulse Rate 65 64 66 Respiratory Rate Blood Pressure 167/29 H 169/24 H 166/23 H Pulse Oximetry 10/09/19 14:15 10/09/19 14:26 10/09/19 14:39 Temperature 97.8 F Pulse Rate 59 L 60 60 Respiratory Rate 16 Blood Pressure 112/30 L 140/42 L 154/36 H Pulse Oximetry 10/09/19 14:59 10/09/19 16:00 10/09/19 20:00 Temperature 97.9 F Pulse Rate 62 54 L 56 L Respiratory Rate 16 Blood Pressure 148/55 H Pulse Oximetry 96 10/09/19 21:00 10/09/19 21:11 10/10/19 00:00 Temperature 97.9 F Pulse Rate 62 62 62 Respiratory Rate 16 16 Blood Pressure 135/52 L Pulse Oximetry 96 96 10/10/19 04:00 10/10/19 05:43 Temperature 99.4 F Pulse Rate 61 66 Respiratory Rate 14 Blood Pressure 139/51 L Pulse Oximetry 95 Intake/Output Intake/Output: Intake & Output 10/07/19 10/08/19 10/09/19 10/10/19 23:59 23:59 23:59 23:59 Intake Total 1935 540 952 150 Output Total 1150 1625 1450 300 Balance 785 -1085 -498 -150 Meds/Results Medications: Active Medications Generic Name Dose Route Start Last Admin Trade Name Freq PRN Reason Stop Dose Admin Amlodipine Besylate 5 mg 10/09/19 15:00 Norvasc PO QAM NOÉ Bumetanide 2 mg 10/10/19 09:00 Bumex Po PO DAILY NOÉ Dextrose 12.5 gm 10/10/19 06:45 Dextrose 50% Syringe IV PUSH PRN PRN Hypoglycemia Protocol Glucagon 1 mg 10/10/19 06:45 Glucagon For Inj IM PRN PRN Hypoglycemia Protocol Glucose 15 gm 10/10/19 06:45 Glutose 15 PO PRN PRN Hypoglycemia Protocol Hydralazine HCl 50 mg 10/09/19 14:00 10/10/19 05:48 Apresoline Tablet PO 50 mg Q8HR NOÉ Administration Dextrose 1,000 mls @ 100 mls/hr 10/10/19 06:45 Dextrose 5% 1,000 Ml IVPB PRN PRN Hypoglycemia Protocol Ondansetron HCl 4 mg 10/07/19 14:16 10/09/19 21:12 Zofran Inj IV PUSH 4 mg Q4H PRN Administration Nausea And Vomiting Radiology Results: ITS Impressions Abdomen X-Ray 10/07/19 18:11 IMPRESSION: 1. Nasogastric tube in the stomach. Chest X-Ray 10/08/19 16:13 IMPRESSION: 1. Right internal jugular dialysis catheter ending with its tip in the right atrium. No pneumothorax. 2. Stable cardiomegaly. Central Venous Line 10/08/19 16:34 IMPRESSION: 1. Right internal jugular tunneled dialysis catheter insertion. Please refer to procedure note for full d
[2019-10-10] MEDS: DEXTROSE 50% 25 GM/50 ML SYRINGE IV PUSH (07:01)
[2019-10-10] MEDS: ONDANSETRON INJ 4 MG/2 ML VIAL IV PUSH ×2 (07:01→08:53)
[2019-10-10 07:35] LABS: Glucose Point of Care 119 (65-105)
[2019-10-10 08:22] LABS: Alanine Aminotransferase < 4 U/L (4-50)
[2019-10-10] MEDS: polyethylene glycoL 3350 238 GM BOTTLE PO (10:53)
[2019-10-10] MEDS: BUMETANIDE 1 MG TABLET 2 MG PO (11:50)
[2019-10-10] MEDS: SODIUM CHLORIDE 0.9% IV 250 ML 30 ML IV CONT (11:55)
--- NOTE | 2019-10-10 12:23 | PC.NURSE ---
Patient with more dizziness with sitting on side of bed with physical therapy. Assisted back to bed. To continue to monitor.
--- NOTE | 2019-10-10 12:49 | PM.PNNEP ---
Progress Note: A&P Assessment and Plan (1) Acute on chronic kidney failure: Code(s): N17.9 - Acute kidney failure, unspecified; N18.9 - Chronic kidney disease, unspecified Status: Acute Assessment and Plan: Naldo has chronic kidney disease. This is most likely due to hypertension. He also is on chronic diuretics and so could have chronic pre renal azotemia. He has got kidney stone disease as well and may have some contribution from that. His renal function has deteriorated gradually over the last couple of years. He is likely reached end-stage kidneys. His ultrasound is Shows no hydronephrosis patient started hemodialysis. (2) GI bleed: Code(s): K92.2 - Gastrointestinal hemorrhage, unspecified Status: Acute Assessment and Plan: The patient had a GI bleed. Hemoglobin is slightly lower. Will give EPO tomorrow. (3) Anemia: Code(s): D64.9 - Anemia, unspecified Status: Acute Assessment and Plan: He has anemia due to blood loss but also due to chronic kidney disease. He might have anemia of chronic disease as well due to the cirrhosis. Getting EPO. (4) Hypertension: Qualifiers: Hypertension type: essential hypertension Qualified Code(s): I10 - Essential (primary) hypertension Code(s): I10 - Essential (primary) hypertension Status: Acute Assessment and Plan: Blood pressures are somewhat wait labile. This may be related to dialysis, fluid shifts, anxiety, nausea. Will Continue hydralazine and Bumetanide. (5) Cirrhosis of liver with ascites: Qualifiers: Hepatic cirrhosis type: unspecified hepatic cirrhosis Qualified Code(s): K74.60 - Unspecified cirrhosis of liver; R18.8 - Other ascites Code(s): K74.60 - Unspecified cirrhosis of liver; R18.8 - Other ascites Status: Chronic Assessment and Plan: Gastroenterology is following (6) Nephrolithiasis: Code(s): N20.0 - Calculus of kidney Status: Acute Assessment and Plan: Sees Urology as an outpatient Subjective Date/time seen: 10/10/19 12:49 Interval history: Patient is alert. He feels okay. Still some nausea. He has vertigo which brings on the nausea. blood pressure is calming down. He is on Hydralazine and Bumetanide. We are holding the amlodipine. Review of Systems Cardiovascular: Cardiovascular: Reports no additional cardiovascular complaints Respiratory: Respiratory: Reports no additional respiratory complaints Gastrointestinal: Gastrointestinal: Reports no additional gastrointestinal complaints Genitourinary: Genitourinary: Reports no additional male genitourinary complaints Exam Narrative: Exam Narrative: WDWN in NAD skin no rash head ncat lungs clear To auscultation cor reg no rub or gallop abd BS+ nontender and soft ext trace edema. Objective Data Vital Signs Vital Signs: Vital Signs - 24 hr 10/09/19 13:00 10/09/19 13:07 10/09/19 13:15 Temperature 36.6 C Pulse Rate 66 76 67 Respiratory Rate 16 Blood Pressure 155/26 H 126/91 H 187/25 H Pulse Oximetry 10/09/19 13:30 10/09/19 13:45 10/09/19 14:00 Temperature Pulse Rate 65 64 66 Respiratory Rate Blood Pressure 167/29 H 169/24 H 166/23 H Pulse Oximetry 10/09/19 14:15 10/09/19 14:26 10/09/19 14:39 Temperature 36.6 C Pulse Rate 59 L 60 60 Respiratory Rate 16 Blood Pressure 112/30 L 140/42 L 154/36 H Pulse Oximetry 10/09/19 14:59 10/09/19 16:00 10/09/19 20:00 Temperature 36.6 C Pulse Rate 62 54 L 56 L Respiratory Rate 16 Blood Pressure 148/55 H Pulse Oximetry 96 10/09/19 21:00 10/09/19 21:11 10/10/19 00:00 Temperature 36.6 C Pulse Rate 62 62 62 Respiratory Rate 16 16 Blood Pressure 135/52 L Pulse Oximetry 96 96 10/10/19 04:00 10/10/19 05:43 10/10/19 08:00 Temperature 37.4 C Pulse Rate 61 66 59 L Respiratory Rate 14
[2019-10-10] MEDS: MECLIZINE HCL 12.5 MG TABLET PO ×2 (13:31→18:37)
[2019-10-10 15:14] LABS: IFOB Positive Control Positive; Immunochemical Fecal Occult Bl Positive (N)
[2019-10-10] MEDS: METOCLOPRAMIDE HCL INJ 10 MG/2 ML VIAL 5 MG IV PUSH (15:59)
--- NOTE | 2019-10-10 16:00 | PM.IMPN ---
Progress Note: A&P Assessment and Plan (1) Symptomatic anemia: Code(s): D64.9 - Anemia, unspecified Status: Acute Assessment and Plan: Appears to be secondary to acute GI Bleeding. Continue blood transfusion. Monitor H/H, transfuse prn. 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 House patient may need temporary dialysis and catheter for dialysis, patient presented emergency department complaint rectal bleeding with black tarry stool upon arrival to emergency depart patient hemoglobin was 5.9, patient was given 2 units of pack RBC, patient was seen by GI was taken to the GI lab and had a EGD which did not show any source of bleeding and patient was scheduled colonoscopy today, however patient was not able to tolerate GoLYTELY for colonoscopy and it is postponed till Friday, today patient still complains abdominal pain nausea vomiting patient is seen by Nephrology suspect his symptoms stemming from azotemia as patient has worsened kidney function patient is scheduled to have a dialysis on 10/08, however dialysis did bring slightly down his BUN and creatinine, however there is no significant improvement in abdominal pain nausea or vomit today, also today patient complains of being dizzy, and had a couple of episode of vomiting, KUB was done which is essentially normal, will give the patient Reglan to help with nausea and vomiting this may relieve his dizziness, patient is seen by GI plan to do colonoscopy and to start the patient on prep, discussed with nephrology patient will have another repeat dialysis tomorrow, today again patient hemoglobin is low 6.8 but denies any source of bleeding, will give the patient 1 unit pack RBC patient had a EGD which was normal and will have colonoscopy tomorrow if patient can tolerate GoLYTELY (2) GI bleed: Qualifiers: GI bleed type/associated pathology: unspecified gastrointestinal hemorrhage type Qualified Code(s): K92.2 - Gastrointestinal hemorrhage, unspecified Code(s): K92.2 - Gastrointestinal hemorrhage, unspecified Status: Acute Assessment and Plan: Likely upper GI bleed as he has had black stools. Check FOBT. Fall precautions. Monitor H/H, transfuse prn. NPO. Protonix IV drip, Octreotide IV drip. GI has been consulted and will evaluate in am. (3) Elevated troponin: Code(s): R79.89 - Other specified abnormal findings of blood chemistry Status: Acute Assessment and Plan: No chest pain. Troponin leak is likely secondary to chronic renal failure. Trend troponin. Telemetry. Monitor for chest pain. (4) Cirrhosis of liver with ascites: Qualifiers: Hepatic cirrhosis type: unspecified hepatic cirrhosis Qualified Code(s): K74.60 - Unspecified cirrhosis of liver; R18.8 - Other ascites Code(s): K74.60 - Unspecified cirrhosis of liver; R18.8 - Other ascites Status: Chronic Assessment and Plan: The patient will need a paracentesis when he is medically stable. Continue GI recommendations. (5) Hyperkalemia: Code(s): E87.5 - Hyperkalemia Status: Acute Assessment and Plan: Likely secondary to chronic renal failure. Monitor serum potassium, we will consider kayexalate, sodium bicarbonate, Insulin and dextrose. (6) Acute renal failure superimposed on stage 4 chronic kidney disease: Qualifiers: Acute renal failure type: unspecified Qualified Code(s): N17.9 - Acute kidney failure, unspecified; N18.4 - Chronic kidney disease, stage 4 (severe) Code(s): N17.9 - Acute kidney failure, unspecified; N18.4 - Chronic kidney disease, stage 4 (severe) Status: Ac
[2019-10-10 17:01] LABS: Hematocrit 24.2 % (42.0-52.0); Hemoglobin 7.9 g/dL (14.0-18.0)
[2019-10-10 18:18] LABS: Hepatitis B Surface Antigen Negative (Negative)
[2019-10-10 18:35] LABS: Hepatitis B Surface Anti Res Negative; Hepatitis C Virus Antibody Negative (Negative)
[2019-10-10 22:51] LABS: Glucose Point of Care 121 (65-105)
[2019-10-11] VITALS (22 sets, daily range): BP systolic 93–151; BP diastolic 43–71; PULSE 49–70; RESP 14–20; TEMP 36.3–37.2; O2SAT 96
[2019-10-11] MEDS: MECLIZINE HCL 12.5 MG TABLET PO ×2 (00:31→20:26)
--- NOTE | 2019-10-11 00:45 | PC.NURSE ---
phone call placed to Dr. Hull's exchange at 09:45 to notify of the patients inability to finish the bowel prep. The patient refused an NG tube and complained of nausea. Bowel prep started at 10:53 and the pt. was only able to drink approx. [address] Hull the pt. will not be able to have the ordered colonoscopy tomorrow.
[2019-10-11] MEDS: hydrALAZINE HCL 50 MG TABLET PO ×3 (06:25→20:26)
[2019-10-11 06:33] LABS: Hematocrit 22.3 % (42.0-52.0); Hemoglobin 7.3 g/dL (14.0-18.0); Mean Corpuscular HGB Conc 32.7 g/dl (32-36); Mean Corpuscular Hemoglobin 28.4 pg (26-34); Mean Corpuscular Volume 86.8 fl (80-100); Mean Platelet Volume 9.6 fl (7.4-10.4); Platelet Count Result 115 k/mm3 (150-375); Red Blood Count 2.57 M/mm3 (4.6-6.20); Red Cell Distribution Width 14.6 % (11.5-14.5); White Blood Count 6.8 K/mm3 (4.5-10.0)
[2019-10-11 06:54] LABS: Albumin Level 2.1 g/dL (3.5-5.1); Alkaline Phosphatase 57 U/L (38-126); Anion Gap 13.5 mmol/L (7-16); Aspartate Amino Transferase 14 U/L (17-59); Bilirubin,Total 0.5 mg/dL (0.2-1.3); Blood Urea Nitrogen 70 mg/dL (9-20); Calcium 7.1 mg/dL (8.4-10.2); Carbon Dioxide 22 mmol/L (22-30); Chloride 104 mmol/L (98-107); Estimated CRCL calculation 10 ml/min; Estimated Glomerular Filt Rate 8; Glucose 71 mg/dL (75-110); Potassium 4.5 mmol/L (3.4-5.0); Sodium 135 mmol/L (137-145)
--- NOTE | 2019-10-11 07:11 | WPDGIPROGNO ---
Progress Note: A&P Additional Plan Patient continues to be intolerant of laxative preparation for colonoscopy. No additional bleeding noted. He denies abdominal pain. Physical exam reveals him to be alert. Comfortable at rest. HEENT exam unremarkable. He is anicteric. Lungs are clear to auscultation. Heart without murmur. Abdomen soft and nontender. Only modest distention. Labs reveal hemoglobin stable 7.3 hemoglobin. This is close to his baseline which has been between 7 and 8 for the last several years. BUN 70, creatinine 6.9. Impression 1. Cirrhosis felt to be secondary to BURROWS. Supportive care advised. 2. Ascites. Plan is for low-salt diet. Continue diuresis. Hopefully dialysis will helpful fluid removal. Try to avoid paracentesis as much as possible. 3. Nausea. Likely related to his azotemia. Hopefully this will improve with dialysis. 4. Occult blood in stool. Hemoglobin close to baseline. EGD was unremarkable. Patient gives a history of colon polyps by colonoscopy a year or 2 ago. At present time we are unable to perform colonoscopy because of inability to prep the patient. Plan is to defer this in plan colonoscopy electively when renal function improves. No signs of active bleeding for quite some time now. 5. End-stage renal disease. Patient with significant azotemia. Now on dialysis. Plan to advance diet. Will anticipate GI follow-up as an outpatient. Subjective Date/time seen: 10/11/19 07:11 Objective Data Vital Signs Vital Signs: Vital Signs - 24 hr 10/10/19 08:00 10/10/19 08:56 10/10/19 09:03 Temperature Pulse Rate 59 L 58 L 58 L Respiratory Rate 14 Blood Pressure 133/48 L 150/42 H Pulse Oximetry 95 10/10/19 12:00 10/10/19 12:15 10/10/19 12:21 Temperature 97.3 F L 97.1 F L Pulse Rate 59 L 63 65 Respiratory Rate 20 18 Blood Pressure 138/54 L 125/53 L 130/58 L Pulse Oximetry 94 98 10/10/19 13:15 10/10/19 14:15 10/10/19 15:40 Temperature 97.3 F L 97.5 F L 97.3 F L Pulse Rate 62 60 61 Respiratory Rate 16 16 18 Blood Pressure 142/30 H 133/48 L 147/52 H Pulse Oximetry 95 95 94 10/10/19 16:00 10/10/19 20:00 10/10/19 20:59 Temperature 98.8 F Pulse Rate 56 L 51 L 53 L Respiratory Rate 16 Blood Pressure 132/51 L Pulse Oximetry 98 10/11/19 00:00 10/11/19 04:00 10/11/19 04:09 Temperature 98.9 F Pulse Rate 50 L 53 L 53 L Respiratory Rate 14 Blood Pressure 132/43 L Pulse Oximetry 96 Intake/Output Intake/Output: Intake & Output 10/08/19 10/09/19 10/10/19 10/11/19 23:59 23:59 23:59 23:59 Intake Total 540 952 690 540 Output Total 1625 1450 1300 200 [facility] [phone] Meds/Results Medications: Active Medications Generic Name Dose Route Start Last Admin Trade Name Freq PRN Reason Stop Dose Admin Bumetanide 2 mg 10/10/19 09:00 10/10/19 11:50 Bumex Po PO 2 mg DAILY NOÉ Administration Dextrose 12.5 gm 10/10/19 06:45 10/10/19 07:01 Dextrose 50% Syringe IV PUSH 12.5 gm PRN PRN Administration Hypoglycemia Protocol Epoetin Wily 10,000 units 10/11/19 09:00 Epogen IV PUSH [id number] NOÉ Glucagon 1 mg 10/10/19 06:45 Glucagon For Inj IM PRN PRN Hypoglycemia Protocol Glucose 15 gm 10/10/19 06:45 Glutose 15 PO PRN PRN Hypoglycemia Protocol Hydralazine HCl 50 mg 10/09/19 14:00 10/11/19 06:25 Apresoline Tablet PO 50 mg Q8HR NOÉ Administration Dextrose 1,000 mls @ 100 mls/hr 10/10/19 06:45 Dextrose 5% 1,000 Ml IVPB PRN PRN Hypoglycemia Protocol Meclizine HCl 12.5 mg 10/10/19 13:00 10/11/19 00:31 Antivert PO 12.5 mg QID NOÉ Administration Radiology Results: ITS Impressions Chest X-Ray 10/08/19 16:13 IMPRESSION: 1. Right internal jugular dialysis catheter ending with its tip in the right atrium. No pneumothorax. 2. Stable cardiomegaly. Central Venous Line 10/08/19
[2019-10-11 08:09] LABS: Glucose Point of Care 76 (65-105)
[2019-10-11] MEDS: BUMETANIDE 1 MG TABLET 2 MG PO (08:15)
[2019-10-11 13:14] LABS: Alanine Aminotransferase < 4 U/L (4-50)
--- NOTE | 2019-10-11 13:15 | PCPTNOTE ---
The patient treatment was not able to be completed due to receiving dialysis treatment. Will plan to continue treatment per plan of care.
[2019-10-11] MEDS: EPOETIN ALFA 10,000 UNITS/ML VIAL 10000 UNITS IV PUSH (13:38)
--- NOTE | 2019-10-11 14:03 | PM.PNNEP ---
Progress Note: A&P Assessment and Plan (1) Acute on chronic kidney failure: Code(s): N17.9 - Acute kidney failure, unspecified; N18.9 - Chronic kidney disease, unspecified Status: Acute Assessment and Plan: Naldo has chronic kidney disease. This is most likely due to hypertension. Now end-stage kidney. He is on dialysis. Working on placement at at [facility]. (2) GI bleed: Code(s): K92.2 - Gastrointestinal hemorrhage, unspecified Status: Acute Assessment and Plan: The patient had a GI bleed. Hemoglobin is slightly lower. Will give EPO tomorrow. (3) Anemia: Code(s): D64.9 - Anemia, unspecified Status: Acute Assessment and Plan: He has anemia due to blood loss but also due to chronic kidney disease. He might have anemia of chronic disease as well due to the cirrhosis. Getting EPO. (4) Hypertension: Qualifiers: Hypertension type: essential hypertension Qualified Code(s): I10 - Essential (primary) hypertension Code(s): I10 - Essential (primary) hypertension Status: Acute Assessment and Plan: Blood pressures are somewhat wait labile. This may be related to dialysis, fluid shifts, anxiety, nausea. Will Continue hydralazine and Bumetanide. (5) Cirrhosis of liver with ascites: Qualifiers: Hepatic cirrhosis type: unspecified hepatic cirrhosis Qualified Code(s): K74.60 - Unspecified cirrhosis of liver; R18.8 - Other ascites Code(s): K74.60 - Unspecified cirrhosis of liver; R18.8 - Other ascites Status: Chronic Assessment and Plan: Gastroenterology is following (6) Nephrolithiasis: Code(s): N20.0 - Calculus of kidney Status: Acute Assessment and Plan: Sees Urology as an outpatient Subjective Date/time seen: 10/11/19 14:03 Interval history: Patient is alert. He feels okay. Nausea is better. He is on dialysis and tolerating it well. blood pressure is doing well. Removing a little fluid. He was seen at 1:30 p.m. Exam Narrative: Exam Narrative: WDWN in NAD skin no rash head ncat lungs clear To auscultation cor reg no rub or gallop abd BS+ nontender and soft ext trace edema. Objective Data Vital Signs Vital Signs: Vital Signs - 24 hr 10/10/19 14:15 10/10/19 15:40 10/10/19 16:00 Temperature 36.4 C L 36.3 C L Pulse Rate 60 61 56 L Respiratory Rate 16 18 Blood Pressure 133/48 L 147/52 H Pulse Oximetry 95 94 10/10/19 20:00 10/10/19 20:59 10/11/19 00:00 Temperature 37.1 C Pulse Rate 51 L 53 L 50 L Respiratory Rate 16 Blood Pressure 132/51 L Pulse Oximetry 98 10/11/19 04:00 10/11/19 04:09 10/11/19 08:00 Temperature 37.2 C Pulse Rate 53 L 53 L 63 Respiratory Rate 14 Blood Pressure 132/43 L Pulse Oximetry 96 10/11/19 11:32 10/11/19 11:53 10/11/19 12:00 Temperature 36.4 C L Pulse Rate 54 L 51 L 49 L Respiratory Rate 16 Blood Pressure 143/71 H 132/62 133/60 Pulse Oximetry 10/11/19 12:15 10/11/19 12:30 10/11/19 12:45 Temperature Pulse Rate 53 L 69 70 Respiratory Rate Blood Pressure 93/44 L 95/45 L 114/47 L Pulse Oximetry 10/11/19 13:15 10/11/19 13:30 10/11/19 13:45 Temperature Pulse Rate 67 62 56 L Respiratory Rate Blood Pressure 128/58 L 132/54 L 129/57 L Pulse Oximetry 10/11/19 14:00 Temperature Pulse Rate 67 Respiratory Rate Blood Pressure 116/56 L Pulse Oximetry Intake/Output Intake/Output: Intake & Output 10/08/19 10/09/19 10/10/19 10/11/19 23:59 23:59 23:59 23:59 Intake Total 540 952 690 900 Output Total 7650 6080 1300 200 [employer] [facility] [employer] [facility] [phone] Meds/Results Medications: Active Medications Generic Name Dose Route Start Last Admin Trade Name Freq PRN Reason Stop Dose Admin Bumetanide 2 mg 10/10/19 09:00 10/11/19 08:15 Bumex Po PO 2 mg DAILY NOÉ Administration Dextrose 12.5 gm 10/10/19 0
[2019-10-11] MEDS: HEPARIN SODIUM 1,000 UNITS/ML VIAL 1000 UNITS IV PUSH (14:38)
[2019-10-11 15:09] LABS: Glucose Point of Care 99 (65-105)
--- NOTE | 2019-10-11 15:29 | PM.IMPN ---
Progress Note: A&P Assessment and Plan (1) Symptomatic anemia: Code(s): D64.9 - Anemia, unspecified Status: Acute Assessment and Plan: Appears to be secondary to acute GI Bleeding. Continue blood transfusion. Monitor H/H, transfuse prn. 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 House patient may need temporary dialysis and catheter for dialysis, patient presented emergency department complaint rectal bleeding with black tarry stool upon arrival to emergency depart patient hemoglobin was 5.9, patient was given 2 units of pack RBC, patient was seen by GI was taken to the GI lab and had a EGD which did not show any source of bleeding and patient was scheduled colonoscopy today, however patient was not able to tolerate GoLYTELY for colonoscopy and it is postponed till Friday, today patient still complains abdominal pain nausea vomiting patient is seen by Nephrology suspect his symptoms stemming from azotemia as patient has worsened kidney function patient is scheduled to have a dialysis on 10/08, however dialysis did bring slightly down his BUN and creatinine, however there is no significant improvement in abdominal pain nausea or vomit today, also on 10/09 patient complains of being dizzy, and had a couple of episode of vomiting, KUB was done which is essentially normal, will give the patient Reglan to help with nausea and vomiting this may relieve his dizziness, today patient states he felt better after Reglan, today nausea vomiting dizziness is better, later he had a BM and there there was blood, GI was informed suspect most likely hemorrhoid, if he can tolerate GoLYTELY can have colonoscopy to further evaluate, patient is seen by Nephrology and will have dialysis today again this will help with the nausea or vomiting as his azotemia will improve, will continue to monitor H and H. (2) GI bleed: Qualifiers: GI bleed type/associated pathology: unspecified gastrointestinal hemorrhage type Qualified Code(s): K92.2 - Gastrointestinal hemorrhage, unspecified Code(s): K92.2 - Gastrointestinal hemorrhage, unspecified Status: Acute Assessment and Plan: Likely upper GI bleed as he has had black stools. Check FOBT. Fall precautions. Monitor H/H, transfuse prn. NPO. Protonix IV drip, Octreotide IV drip. GI has been consulted and will evaluate in am. (3) Elevated troponin: Code(s): R79.89 - Other specified abnormal findings of blood chemistry Status: Acute Assessment and Plan: No chest pain. Troponin leak is likely secondary to chronic renal failure. Trend troponin. Telemetry. Monitor for chest pain. (4) Cirrhosis of liver with ascites: Qualifiers: Hepatic cirrhosis type: unspecified hepatic cirrhosis Qualified Code(s): K74.60 - Unspecified cirrhosis of liver; R18.8 - Other ascites Code(s): K74.60 - Unspecified cirrhosis of liver; R18.8 - Other ascites Status: Chronic Assessment and Plan: The patient will need a paracentesis when he is medically stable. Continue GI recommendations. (5) Hyperkalemia: Code(s): E87.5 - Hyperkalemia Status: Acute Assessment and Plan: Likely secondary to chronic renal failure. Monitor serum potassium, we will consider kayexalate, sodium bicarbonate, Insulin and dextrose. (6) Acute renal failure superimposed on stage 4 chronic kidney disease: Qualifiers: Acute renal failure type: unspecified Qualified Code(s): N17.9 - Acute kidney failure, unspecified; N18.4 - Chronic kidney disease, stage 4 (severe) Code(s): N17.9 - Acute kidney failure, unspecified; N18.
--- NOTE | 2019-10-11 16:35 | PC.NURSE ---
Pt refusing meclizine. aware.
[2019-10-11 16:54] LABS: Hematocrit 23.6 % (42.0-52.0); Hemoglobin 7.8 g/dL (14.0-18.0)
[2019-10-11 17:52] LABS: Glucose Point of Care 84 (65-105)
[2019-10-11] MEDS: ACETAMINOPHEN 325 MG TABLET 650 MG PO (19:23)
[2019-10-12] VITALS (28 sets, daily range): BP systolic 85–148; BP diastolic 44–80; PULSE 35–72; RESP 14–20; TEMP 36.3–37; O2SAT 96–98
--- NOTE | 2019-10-12 | ECHO_ITS ---
Patient Info Name: Naldo Lowry Age: 69 years : 1950 Gender: Male Ht: 71 in Wt: 191 lbs BSA: 2.10 m2 HR: 60 bpm BP: 129 / 63 mmHg Heart Rhythm: Atrial Fibrillation Technical Quality: Fair Exam Date: 10/12/2019 1:24 PM Exam Location: [facility] Patient Status: Inpatient Admit Date: 10/07/2019 Staff Ordering Physician: Vicenta Patricia MD [place] Work: Shelley Rosado RDCS Attending Provider: Rick Lance MD Exam Type: CA echo doppler color flow Study Info Indications R07.9 - Chest pain, unspecified Complete two-dimensional, color flow and Doppler transthoracic echocardiogram is performed. Summary 1. Left ventricular chamber dimension is normal. 2. Left ventricular systolic function is normal, estimated at 60-65%. 3. There is mildly increased left ventricular wall thickness. 4. The left ventricular diastolic function is abnormal. 5. E/e' 10 is mildly elevated. 6. Atrial fibrillation. 7. Right ventricular systolic function is reduced with TAPSE at 0.8 cm. 8. Left atrial chamber dimension is moderately enlarged. 9. Right atrial chamber dimension is moderately enlarged. 10. There is mild aortic valve sclerosis. 11. There is moderate aortic valve regurgitation. 12. The mitral valve has mildly calcified annulus. 13. There is trace mitral valve regurgitation. 14. There is trace tricuspid valve regurgitation. 15. Moderate pulmonary hypertension, estimated pulmonary arterial systolic pressure is 50 mmHg. 16. Small atheroma in anterior aortic root. Left Ventricle E/e' 10 is mildly elevated. Atrial fibrillation. Left ventricular chamber dimension is normal. Left ventricular systolic function is normal, estimated at 60-65%. There is mildly increased left ventricular wall thickness. The left ventricular diastolic function is abnormal. Right Ventricle Right ventricular systolic function is reduced with TAPSE at 0.8 cm. Right ventricular chamber dimension is not well visualized. Left Atria Left atrial chamber dimension is moderately enlarged. Right Atria Right atrial chamber dimension is moderately enlarged. Aortic Valve The aortic valve is trileaflet. There is mild aortic valve sclerosis. There is no aortic valve stenosis. There is moderate aortic valve regurgitation. Pulmonic Valve There is no pulmonic regurgitation. Mitral Valve The mitral valve has mildly calcified annulus. There is no mitral valve stenosis. There is trace mitral valve regurgitation. Tricuspid Valve There is trace tricuspid valve regurgitation. Moderate pulmonary hypertension, estimated pulmonary arterial systolic pressure is 50 mmHg. Pericardium/Pleural There is no pericardial effusion. Inferior Vena Cava Normal inferior vena cava with >50% collapse upon inspiration consistent with normal right atrial pressure, 5 mmHg. Aorta Small atheroma in anterior aortic root. The aortic root size at the sinus of Valsalva is normal. Left Ventricular Outflow Tract Name Value Normal LVOT 2D LVOT Diameter 2.1 cm LVOT Doppler LVOT Peak Gradient 3 mmHg LVOT Mean Gra
[2019-10-12 02:25] LABS: Glucose Point of Care 95 (65-105)
[2019-10-12] MEDS: hydrALAZINE HCL 50 MG TABLET PO ×3 (06:07→21:25)
[2019-10-12 06:17] LABS: Hematocrit 23.6 % (42.0-52.0); Hemoglobin 7.4 g/dL (14.0-18.0); Mean Corpuscular HGB Conc 31.4 g/dl (32-36); Mean Corpuscular Hemoglobin 27.5 pg (26-34); Mean Corpuscular Volume 87.7 fl (80-100); Mean Platelet Volume 9.5 fl (7.4-10.4); Platelet Count Result 105 k/mm3 (150-375); Red Blood Count 2.69 M/mm3 (4.6-6.20); Red Cell Distribution Width 14.6 % (11.5-14.5); White Blood Count 6.1 K/mm3 (4.5-10.0)
[2019-10-12 06:46] LABS: Albumin Level 2.1 g/dL (3.5-5.1); Alkaline Phosphatase 58 U/L (38-126); Anion Gap 10.2 mmol/L (7-16); Aspartate Amino Transferase 14 U/L (17-59); Bilirubin,Total 0.5 mg/dL (0.2-1.3); Blood Urea Nitrogen 46 mg/dL (9-20); Carbon Dioxide 26 mmol/L (22-30); Chloride 102 mmol/L (98-107); Estimated CRCL calculation 14 ml/min; Estimated Glomerular Filt Rate 12; Glucose 79 mg/dL (75-110); Phosphorus 4.9 mg/dL (2.5-4.5); Potassium 4.2 mmol/L (3.4-5.0); Sodium 134 mmol/L (137-145)
[2019-10-12 07:17] LABS: Alanine Aminotransferase < 4 U/L (4-50)
[2019-10-12 07:53] LABS: Glucose Point of Care 78 (65-105)
--- NOTE | 2019-10-12 09:46 | ECG_ITS ---
Measurements Intervals [place] Rate: 69 P: MS: 0 QRS: -70 QRSD: 116 T: 123 QT: 411 QTc: 440 Interpretive Statements ACCELERATED JUNCTIONAL RHYTHM INCOMPLETE LEFT BUNDLE BRANCH BLOCK POOR R WAVE PROGRESSION, CONSIDER ANTERIOR INFARCT BORDERLINE ST-T WAVE ABNORMALITY- LAT/HIGH LAT LEADS ABNORMAL ECG Electronically Signed On 10-12-2019 10:00:53 CDT by Peter Pollack D.O.
[2019-10-12 10:28] LABS: Troponin I 0.076 ng/mL (0.000-0.034)
--- NOTE | 2019-10-12 10:39 | PCOTNOTE ---
OT treatment was not able to be completed due to patient out for dialysis treatment. Will plan to continue treatment per plan of care.
[2019-10-12] MEDS: HEPARIN SODIUM 1,000 UNITS/ML VIAL 1000 UNITS IV PUSH (12:12)
--- NOTE | 2019-10-12 12:20 | WPDGIPROGNO ---
Progress Note: A&P Additional Plan Nursing staff reports patient had bright red blood per rectum yesterday. Patient seems unaware of this today on questioning. He denies abdominal pain. States he feels comfortable. He is receiving dialysis of present. Physical exam reveals patient to be alert. He is anicteric. Lungs are clear. Heart without murmur. Abdomen is soft and nontender no organomegaly evident. His appears to be more modestly less distended. Labs reveal hemoglobin 7.4, hematocrit 23.6, MCV 87. This is stable. BUN 46, creatinine 4.9. Impression 1. GI bleeding. May be from hemorrhoids. Cannot exclude other colonic lesion. Plan is for colonoscopy when his nausea has subsided. This can be performed as an outpatient if necessary. Currently patient refusing further attempts at colonoscopy today. 2. Cirrhosis of liver felt to be secondary to BURROWS. 3. Ascites secondary to cirrhosis. Continue diuresis. Low-salt diet. Hopefully with diuresis this will improve. Paracentesis should be limited. Hopefully dialysis will help with fluid control as well. 4. End-stage renal disease. Patient now on dialysis. Azotemia may be contributing to his nausea. Creatinine has been improving with dialysis. Subjective Date/time seen: 10/12/19 12:20 Objective Data Vital Signs Vital Signs: Vital Signs - 24 hr 10/11/19 12:30 10/11/19 12:45 10/11/19 13:15 Temperature Pulse Rate 69 70 67 Respiratory Rate Blood Pressure 95/45 L 114/47 L 128/58 L Pulse Oximetry 10/11/19 13:30 10/11/19 13:45 10/11/19 14:00 Temperature Pulse Rate 62 56 L 67 Respiratory Rate Blood Pressure 132/54 L 129/57 L 116/56 L Pulse Oximetry 10/11/19 14:15 10/11/19 14:26 10/11/19 14:31 Temperature 98.1 F Pulse Rate 67 66 66 Respiratory Rate 20 Blood Pressure 129/59 L 137/61 151/68 H Pulse Oximetry 10/11/19 15:59 10/11/19 16:00 10/11/19 20:00 Temperature 97.3 F L Pulse Rate 66 53 L 57 L Respiratory Rate 18 Blood Pressure 118/46 L Pulse Oximetry 96 10/11/19 20:44 10/12/19 00:00 10/12/19 04:00 Temperature 98 F Pulse Rate 64 50 L 58 L Respiratory Rate 14 Blood Pressure 131/61 Pulse Oximetry 96 10/12/19 04:32 10/12/19 08:40 10/12/19 08:56 Temperature 98.5 F 98.1 F Pulse Rate 66 58 L 51 L Respiratory Rate 14 20 Blood Pressure 121/44 L 125/57 L 121/55 L Pulse Oximetry 96 10/12/19 09:00 10/12/19 09:15 10/12/19 09:19 Temperature Pulse Rate 54 L 65 61 Respiratory Rate Blood Pressure 128/59 L 88/51 L 94/48 L Pulse Oximetry 10/12/19 09:30 10/12/19 09:35 10/12/19 09:42 Temperature Pulse Rate 70 70 72 Respiratory Rate Blood Pressure 91/47 L 85/46 L 100/51 L Pulse Oximetry 10/12/19 09:45 10/12/19 10:00 10/12/19 10:15 Temperature Pulse Rate 61 69 68 Respiratory Rate Blood Pressure 109/51 L 128/59 L 109/56 L Pulse Oximetry 10/12/19 10:30 10/12/19 10:45 10/12/19 11:00 Temperature Pulse Rate 67 35 L 67 Respiratory Rate Blood Pressure 129/63 140/61 128/64 Pulse Oximetry 10/12/19 11:15 10/12/19 11:30 10/12/19 11:45 Temperature Pulse Rate 60 61 59 L Respiratory Rate Blood Pressure 126/58 L 140/59 L 148/80 H Pulse Oximetry 10/12/19 11:57 10/12/19 12:05 Temperature 98.2 F Pulse Rate 61 58 L Respiratory Rate 20 Blood Pressure 122/64 134/58 L Pulse Oximetry Intake/Output Intake/Output: Intake & Output 10/09/19 10/10/19 10/11/19 10/12/19 23:59 23:59 23:59 23:59 Intake Total 722 849 0566 540 Output Total 1450 1300 1200 800 Balance -495 -779 180 260 Meds/Results Medications: Active Medications Generic Name Dose Route Start Last Admin Trade Name Freq PRN Reason Stop Dose Admin Acetaminophen 650 mg 10/11/19 18:48 10/11/19 19:23 Tylenol Tablet PO 650 mg Q8HR PRN Administration Mild Pain (1-3) or Fever Bumetanide 2 mg 10/10/19 09:00 10/11/19 08:15 Bumex Po
--- NOTE | 2019-10-12 12:21 | PM.IMPN ---
Progress Note: A&P Assessment and Plan (1) Symptomatic anemia: Code(s): D64.9 - Anemia, unspecified Status: Acute Assessment and Plan: Appears to be secondary to acute GI Bleeding. Continue blood transfusion. Monitor H/H, transfuse prn. 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 House patient may need temporary dialysis and catheter for dialysis, patient presented emergency department complaint rectal bleeding with black tarry stool upon arrival to emergency depart patient hemoglobin was 5.9, patient was given 2 units of pack RBC, patient was seen by GI was taken to the GI lab and had a EGD which did not show any source of bleeding and patient was scheduled colonoscopy today, however patient was not able to tolerate GoLYTELY for colonoscopy and it is postponed till Friday, today patient still complains abdominal pain nausea vomiting patient is seen by Nephrology suspect his symptoms stemming from azotemia as patient has worsened kidney function patient is scheduled to have a dialysis on 10/08, however dialysis did bring slightly down his BUN and creatinine, however there is no significant improvement in abdominal pain nausea or vomit today, also on 10/09 patient complains of being dizzy, and had a couple of episode of vomiting, KUB was done which is essentially normal, will give the patient Reglan to help with nausea and vomiting this may relieve his dizziness, today patient states he felt better after Reglan, today nausea vomiting dizziness is better, later he had a BM and there there was blood, GI was informed suspect most likely hemorrhoid, if he can tolerate GoLYTELY can have colonoscopy to further evaluate, today during dialysis patient developed chest pain lasting 15 minutes dull ache radiation to the back there was no associated nausea, vomiting or diaphoresis however patient states he did feel worse during the pain, pain is now resolved, will continue dialysis contact Dr. House further recommendation, ordered EKG and cardiac tropes, EKG nonconclusive, however initial tropes are elevated to 0.77 which is slightly higher and then his tropes during admission, will continue to trend the tropes will do cardiac echo if there is significant concern will consult surgery for their opinion recommendation. (2) GI bleed: Qualifiers: GI bleed type/associated pathology: unspecified gastrointestinal hemorrhage type Qualified Code(s): K92.2 - Gastrointestinal hemorrhage, unspecified Code(s): K92.2 - Gastrointestinal hemorrhage, unspecified Status: Acute Assessment and Plan: Likely upper GI bleed as he has had black stools. Check FOBT. Fall precautions. Monitor H/H, transfuse prn. NPO. Protonix IV drip, Octreotide IV drip. GI has been consulted and will evaluate in am. (3) Elevated troponin: Code(s): R79.89 - Other specified abnormal findings of blood chemistry Status: Acute Assessment and Plan: No chest pain. Troponin leak is likely secondary to chronic renal failure. Trend troponin. Telemetry. Monitor for chest pain. (4) Cirrhosis of liver with ascites: Qualifiers: Hepatic cirrhosis type: unspecified hepatic cirrhosis Qualified Code(s): K74.60 - Unspecified cirrhosis of liver; R18.8 - Other ascites Code(s): K74.60 - Unspecified cirrhosis of liver; R18.8 - Other ascites Status: Chronic Assessment and Plan: The patient will need a paracentesis when he is medically stable. Continue GI recommendations. (5) Hyperkalemia: Code(s): E87.5 - Hyperkalemia Status: Acute Assessment and Plan: Likely secondary to
[2019-10-12 13:53] LABS: Glucose Point of Care 89 (65-105)
[2019-10-12] MEDS: MECLIZINE HCL 12.5 MG TABLET PO ×3 (14:28→20:29)
[2019-10-12] MEDS: BUMETANIDE 1 MG TABLET 2 MG PO (14:28)
[2019-10-12 14:32] LABS: Troponin I 0.068 ng/mL (0.000-0.034)
[2019-10-12 16:36] LABS: Glucose Point of Care 105 (65-105)
--- NOTE | 2019-10-12 16:47 | PM.PNNEP ---
Progress Note: A&P Assessment and Plan (1) Acute on chronic kidney failure: Code(s): N17.9 - Acute kidney failure, unspecified; N18.9 - Chronic kidney disease, unspecified Status: Acute Assessment and Plan: Naldo has chronic kidney disease. This is most likely due to hypertension. Now end-stage kidney. He is on dialysis. Working on placement at at [facility] (2) GI bleed: Code(s): K92.2 - Gastrointestinal hemorrhage, unspecified Status: Acute Assessment and Plan: The patient had a GI bleed. Hemoglobin is slightly lower. Will give EPO tomorrow. (3) Anemia: Code(s): D64.9 - Anemia, unspecified Status: Acute Assessment and Plan: hemoglobin is 7.4 today.s. Getting EPO. (4) Hypertension: Qualifiers: Hypertension type: essential hypertension Qualified Code(s): I10 - Essential (primary) hypertension Code(s): I10 - Essential (primary) hypertension Status: Acute Assessment and Plan: Blood pressures are somewhat wait labile. This may be related to dialysis, fluid shifts, anxiety, nausea. Hold hydralazine before dialysis on dialysis days. Because he gets low blood pressure on dialysis, Will not remove fluid for the 1st hour of treatment. Then we can see how he does after that. (5) Cirrhosis of liver with ascites: Qualifiers: Hepatic cirrhosis type: unspecified hepatic cirrhosis Qualified Code(s): K74.60 - Unspecified cirrhosis of liver; R18.8 - Other ascites Code(s): K74.60 - Unspecified cirrhosis of liver; R18.8 - Other ascites Status: Chronic Assessment and Plan: Gastroenterology is following the patient feels like he is getting close to needing another paracentesis. (6) Nephrolithiasis: Code(s): N20.0 - Calculus of kidney Status: Acute Assessment and Plan: Sees Urology as an outpatient Subjective Date/time seen: 10/12/19 16:47 Interval history: Patient is alert. He feels okay. Nausea is better. He had dialysis this morning. His blood pressure dropped early. Initially the blood pressure was fine but then dropped into the 90s pretty quickly. Ultrafiltration was discontinued and he received a little bit of fluid in albumin. While his blood pressure was low he had some chest discomfort. He thinks it was just anxiety. EKG was done and troponins were drawn which are okay. Dr. Patricia attended to the patient during that time. Now he feels better. He is much calmer and does not feel anxious and is not having any chest pain. Review of Systems Cardiovascular: Cardiovascular: Reports no additional cardiovascular complaints Respiratory: Respiratory: Reports no additional respiratory complaints Gastrointestinal: Gastrointestinal: Reports no additional gastrointestinal complaints Genitourinary: Genitourinary: Reports no additional male genitourinary complaints Exam Narrative: Exam Narrative: WDWN in NAD skin no rash head ncat lungs clear To auscultation cor reg no rub or gallop abd BS+ nontender and soft ext trace edema. Objective Data Vital Signs Vital Signs: Vital Signs - 24 hr 10/11/19 20:00 10/11/19 20:44 10/12/19 00:00 Temperature 36.6 C Pulse Rate 57 L 64 50 L Respiratory Rate 14 Blood Pressure 131/61 Pulse Oximetry 96 10/12/19 04:00 10/12/19 04:32 10/12/19 08:00 Temperature 36.9 C Pulse Rate 58 L 66 62 Respiratory Rate 14 Blood Pressure 121/44 L Pulse Oximetry 96 10/12/19 08:40 10/12/19 08:56 10/12/19 09:00 Temperature 36.7 C Pulse Rate 58 L 51 L 54 L Respiratory Rate 20 Blood Pressure 125/57 L 121/55 L 128/59 L Pulse Oximetry 10/12/19 09:15 10/12/19 09:19 10/12/19 09:30 Temperature Pulse Rate 65 61 70 Respiratory Rate Blood Pressure 88/51 L 94/48 L 91/47 L Pulse Oximetry 10/12/19 09:35 10/12/19 09:42 10/12/19 09:45 Temperature Pul
[2019-10-12 17:31] LABS: Troponin I 0.061 ng/mL (0.000-0.034)
[2019-10-12 21:33] LABS: Glucose Point of Care 121 (65-105)
[2019-10-13] VITALS (10 sets, daily range): BP systolic 112–142; BP diastolic 41–52; PULSE 51–64; RESP 14–20; TEMP 36.3–36.9; O2SAT 92–97
[2019-10-13] MEDS: hydrALAZINE HCL 50 MG TABLET PO ×3 (05:15→21:15)
[2019-10-13 06:11] LABS: Hemoglobin 7.2 g/dL (14.0-18.0); Mean Corpuscular HGB Conc 32.7 g/dl (32-36); Mean Corpuscular Hemoglobin 29.1 pg (26-34); Mean Corpuscular Volume 89.1 fl (80-100); Mean Platelet Volume 9.4 fl (7.4-10.4); Platelet Count Result 101 k/mm3 (150-375); Red Blood Count 2.47 M/mm3 (4.6-6.20); Red Cell Distribution Width 14.4 % (11.5-14.5); White Blood Count 6.4 K/mm3 (4.5-10.0)
[2019-10-13 06:37] LABS: Albumin Level 1.9 g/dL (3.5-5.1); Alkaline Phosphatase 58 U/L (38-126); Anion Gap 6.8 mmol/L (7-16); Aspartate Amino Transferase 14 U/L (17-59); Bilirubin,Total 0.3 mg/dL (0.2-1.3); Blood Urea Nitrogen 27 mg/dL (9-20); Calcium 6.8 mg/dL (8.4-10.2); Carbon Dioxide 31 mmol/L (22-30); Chloride 99 mmol/L (98-107); Estimated CRCL calculation 19 ml/min; Estimated Glomerular Filt Rate 17; Glucose 75 mg/dL (75-110); Potassium 3.8 mmol/L (3.4-5.0); Sodium 133 mmol/L (137-145)
[2019-10-13 06:50] LABS: Alanine Aminotransferase < 4 U/L (4-50)
--- NOTE | 2019-10-13 07:40 | PC.NURSE ---
To nuclear med via stretcher.
--- NOTE | 2019-10-13 08:30 | EST_ITS ---
Patient Info Name: Naldo Lowry Age: 69 years : 1950 Gender: Male Ht: 71 in Wt: 191 lbs BSA: 2.10 m2 Exam Date: 10/13/2019 8:40 AM Exam Location: [facility] Stress Patient Status: Inpatient Admit Date: 10/07/2019 Staff Ordering Physician: Vicenta Patricia MD Attending Provider: Rick Lance MD Exercise Technologist: Lance Coleman RDCS, RT Exercise Physician: Peter Pollack DO Exam Type: CA stress mariano w NM Study Info A nuclear stress test was performed. Summary 1. 1. Inconclusive lexiscan stress test for ischemic ST changes by ECG criteria due to baseline LBBB. 2. 2. Stable hemodynamics throughout the test. 3. 3. Nuclear scan to follow and will be reported separately. Please correlate with it. 4. 4. Patient informed of the above results. Protocol: Lexiscan Stress ECG Details Stage: REST Duration (min): 9 min : 25 sec HR (bpm): 59 SBP (mmHg): 138 DBP (mmHg): 49 Stage: REST Duration (min): 10 min : 34 sec HR (bpm): 59 SBP (mmHg): 138 DBP (mmHg): 49 Stage: STAGE 1 Duration (min): 0 min : 59 sec HR (bpm): 57 SBP (mmHg): 145 DBP (mmHg): 48 Stage: RECOVERY Duration (min): 1 min : 0 sec HR (bpm): 65 SBP (mmHg): 145 DBP (mmHg): 48 Stage: RECOVERY Duration (min): 2 min : 0 sec HR (bpm): 62 SBP (mmHg): 145 DBP (mmHg): 48 Stage: RECOVERY Duration (min): 3 min : 0 sec HR (bpm): 63 SBP (mmHg): 145 DBP (mmHg): 48 Stage: RECOVERY Duration (min): 4 min : 0 sec HR (bpm): 63 SBP (mmHg): 145 DBP (mmHg): 48 Stage: RECOVERY Duration (min): 5 min : 0 sec HR (bpm): 63 SBP (mmHg): 145 DBP (mmHg): 48 Stage: RECOVERY Duration (min): 5 min : 33 sec HR (bpm): 64 SBP (mmHg): 152 DBP (mmHg): 58 Rest HR: 59 bpm Peak HR: 67 bpm Rest Sys BP: 138 mmHg Peak Sys BP: 152 mmHg Max Pred HR: 149 bpm % Max Pred HR: 45 % Target HR: 127 bpm Max RPP: 10,184 bpm*mmHg Termination Reason: Completed protocol Cardiac Symptoms: Shortness of breath Total Time: 1 min : 0 sec Rest Sparks BP: 49 mmHg Peak Sparks BP: 58 mmHg Total Dose: 0.4 mg Resting ECG Atrial fibrillation, LBBB, low voltage- diffuse leads. Stress ECG No ST changes. Arrhythmias None. Report Signatures
--- NOTE | 2019-10-13 09:40 | PC.NURSE ---
Returned from nuclear med via stretcher.
[2019-10-13] MEDS: BUMETANIDE 1 MG TABLET 2 MG PO (10:02)
[2019-10-13] MEDS: MECLIZINE HCL 12.5 MG TABLET PO ×4 (10:03→20:08)
[2019-10-13 10:09] LABS: Glucose Point of Care 106 (65-105)
--- NOTE | 2019-10-13 10:33 | PM.PNNEP ---
Progress Note: A&P Assessment and Plan (1) Acute on chronic kidney failure: Code(s): N17.9 - Acute kidney failure, unspecified; N18.9 - Chronic kidney disease, unspecified Status: Acute Assessment and Plan: Naldo has chronic kidney disease. This is most likely due to hypertension. Now end-stage kidney. He is on dialysis. Will go to outpatient dialysis upon discharge. (2) GI bleed: Code(s): K92.2 - Gastrointestinal hemorrhage, unspecified Status: Acute Assessment and Plan: The patient had a GI bleed. Hemoglobin is slightly lower. Will give EPO tomorrow. (3) Anemia: Code(s): D64.9 - Anemia, unspecified Status: Acute Assessment and Plan: hemoglobin is 7.4 today.s. Getting EPO With each dialysis. (4) Hypertension: Qualifiers: Hypertension type: essential hypertension Qualified Code(s): I10 - Essential (primary) hypertension Code(s): I10 - Essential (primary) hypertension Status: Acute Assessment and Plan: Blood pressures are Doing better. Continue same medications. (5) Cirrhosis of liver with ascites: Qualifiers: Hepatic cirrhosis type: unspecified hepatic cirrhosis Qualified Code(s): K74.60 - Unspecified cirrhosis of liver; R18.8 - Other ascites Code(s): K74.60 - Unspecified cirrhosis of liver; R18.8 - Other ascites Status: Chronic Assessment and Plan: Gastroenterology is following the patient feels like he is getting close to needing another paracentesis. (6) Nephrolithiasis: Code(s): N20.0 - Calculus of kidney Status: Acute Assessment and Plan: Sees Urology as an outpatient Subjective Date/time seen: 10/13/19 10:33 Interval history: Patient is alert. He feels okay. Nausea is better. He feels good today. He is eager for discharge. He had a stress test which looks okay. Waiting for red tape to be able to be admitted to [facility] Review of Systems Cardiovascular: Cardiovascular: Reports no additional cardiovascular complaints Respiratory: Respiratory: Reports no additional respiratory complaints Gastrointestinal: Gastrointestinal: Reports no additional gastrointestinal complaints Genitourinary: Genitourinary: Reports no additional male genitourinary complaints Exam Narrative: Exam Narrative: WDWN in NAD skin no rash head ncat lungs clear To auscultation cor reg no rub or gallop abd BS+ nontender and soft ext trace edema. Objective Data Vital Signs Vital Signs: Vital Signs - 24 hr 10/12/19 10:45 10/12/19 11:00 10/12/19 11:15 Temperature Pulse Rate 35 L 67 60 Respiratory Rate Blood Pressure 140/61 128/64 126/58 L Pulse Oximetry 10/12/19 11:30 10/12/19 11:45 10/12/19 11:57 Temperature Pulse Rate 61 59 L 61 Respiratory Rate Blood Pressure 140/59 L 148/80 H 122/64 Pulse Oximetry 10/12/19 12:00 10/12/19 12:05 10/12/19 16:00 Temperature 36.8 C Pulse Rate 59 L 58 L 44 L Respiratory Rate 20 Blood Pressure 134/58 L Pulse Oximetry 10/12/19 16:04 10/12/19 20:00 10/13/19 00:00 Temperature 36.5 C 36.9 C 36.8 C Pulse Rate 52 L 58 L 64 Respiratory Rate 18 18 14 Blood Pressure 113/46 L 121/45 L 142/52 H Pulse Oximetry 98 96 92 10/13/19 04:00 10/13/19 08:00 10/13/19 10:10 Temperature 36.9 C 36.5 C Pulse Rate 60 59 L 58 L Respiratory Rate 16 20 Blood Pressure 129/41 L 117/44 L Pulse Oximetry 93 97 Intake/Output Intake/Output: Intake & Output 10/10/19 10/11/19 10/12/19 10/13/19 23:59 23:59 23:59 23:59 Intake Total 690 1380 900 240 Output Total 1300 1200 850 200 Balance -610 180 50 40 Meds/Results Medications: Active Medications Generic Name Dose Route Start Last Admin Trade Name Freq PRN Reason Stop Dose Admin Acetaminophen 650 mg 10/11/19 18:48 10/11/19 19:23 Tylenol Tablet PO 650 mg Q8HR PRN Administrat
--- NOTE | 2019-10-13 10:42 | WPDGIPROGNO ---
Progress Note: A&P Additional Plan Patient alert and comfortable this morning. He offers no complaints. He states his abdomen feels better. He denies any obvious blood in his stools. Physical exam reveals patient to be alert. He is anicteric. Lungs are clear. Heart without murmur. Abdomen is soft. Modest obesity I would countered. No organomegaly evident. Labs reveal hemoglobin 7.2, hematocrit 22 stable. BUN 27, creatinine 3.5, LFTs normal. Impression 1. Cirrhosis felt to be secondary to BURROWS. Concomitnt ascites. Plan is to continue low-salt diet. dialysis may be helping with fluid control. Abdomen is less distended. I would defer paracentesis is much as possible. 2. Lower GI bleeding. Most likely rectal. Suspect hemorrhoidal bleeding but other etiology cannot be excluded. Plan is for outpatient colonoscopy when patient's nausea has improved enough to tolerate preparation. Hemoglobin stable at this point 3. End-stage renal disease. Patient now on dialysis. Suspect that azotemia with contributing to his nausea previously. Subjective Date/time seen: 10/13/19 10:42 Objective Data Vital Signs Vital Signs: Vital Signs - 24 hr 10/12/19 10:45 10/12/19 11:00 10/12/19 11:15 Temperature Pulse Rate 35 L 67 60 Respiratory Rate Blood Pressure 140/61 128/64 126/58 L Pulse Oximetry 10/12/19 11:30 10/12/19 11:45 10/12/19 11:57 Temperature Pulse Rate 61 59 L 61 Respiratory Rate Blood Pressure 140/59 L 148/80 H 122/64 Pulse Oximetry 10/12/19 12:00 10/12/19 12:05 10/12/19 16:00 Temperature 98.2 F Pulse Rate 59 L 58 L 44 L Respiratory Rate 20 Blood Pressure 134/58 L Pulse Oximetry 10/12/19 16:04 10/12/19 20:00 10/13/19 00:00 Temperature 97.7 F 98.4 F 98.2 F Pulse Rate 52 L 58 L 64 Respiratory Rate 18 18 14 Blood Pressure 113/46 L 121/45 L 142/52 H Pulse Oximetry 98 96 92 10/13/19 04:00 10/13/19 08:00 10/13/19 10:10 Temperature 98.4 F 97.7 F Pulse Rate 60 59 L 58 L Respiratory Rate 16 20 Blood Pressure 129/41 L 117/44 L Pulse Oximetry 93 97 Intake/Output Intake/Output: Intake & Output 10/10/19 10/11/19 10/12/19 10/13/19 23:59 23:59 23:59 23:59 Intake Total 690 1380 900 240 Output Total 1300 1200 850 200 Balance -610 180 50 40 Meds/Results Medications: Active Medications Generic Name Dose Route Start Last Admin Trade Name Freq PRN Reason Stop Dose Admin Acetaminophen 650 mg 10/11/19 18:48 10/11/19 19:23 Tylenol Tablet PO 650 mg Q8HR PRN Administration Mild Pain (1-3) or Fever Bumetanide 2 mg 10/10/19 09:00 10/13/19 10:02 Bumex Po PO 2 mg DAILY NOÉ Administration Dextrose 12.5 gm 10/10/19 06:45 10/10/19 07:01 Dextrose 50% Syringe IV PUSH 12.5 gm PRN PRN Administration Hypoglycemia Protocol Epoetin Wily 10,000 units 10/11/19 09:00 10/13/19 10:10 Epogen IV PUSH Not Given [id number] NOÉ Glucagon 1 mg 10/10/19 06:45 Glucagon For Inj IM PRN PRN Hypoglycemia Protocol Glucose 15 gm 10/10/19 06:45 Glutose 15 PO PRN PRN Hypoglycemia Protocol Hydralazine HCl 50 mg 10/09/19 14:00 10/13/19 05:15 Apresoline Tablet PO 50 mg Q8HR NOÉ Administration Dextrose 1,000 mls @ 100 mls/hr 10/10/19 06:45 Dextrose 5% 1,000 Ml IVPB PRN PRN Hypoglycemia Protocol Meclizine HCl 12.5 mg 10/10/19 13:00 10/13/19 10:03 Antivert PO 12.5 mg QID NOÉ Administration Radiology Results: ITS Impressions Chest X-Ray 10/08/19 16:13 IMPRESSION: 1. Right internal jugular dialysis catheter ending with its tip in the right atrium. No pneumothorax. 2. Stable cardiomegaly. Central Venous Line 10/08/19 16:34 IMPRESSION: 1. Right internal jugular tunneled dialysis catheter insertion. Please refer to procedure note for full details. Renal Ultrasound 10/09/19 10:41 IMPRESSION: 1. No hydronephrosis. 2. Incr
[2019-10-13 11:51] LABS: Glucose Point of Care 118 (65-105)
--- NOTE | 2019-10-13 12:39 | PM.IMPN ---
Progress Note: A&P Assessment and Plan (1) Symptomatic anemia: Code(s): D64.9 - Anemia, unspecified Status: Acute Assessment and Plan: Appears to be secondary to acute GI Bleeding. Continue blood transfusion. Monitor H/H, transfuse prn. 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 House patient may need temporary dialysis and catheter for dialysis, patient presented emergency department complaint rectal bleeding with black tarry stool upon arrival to emergency depart patient hemoglobin was 5.9, patient was given 2 units of pack RBC, patient was seen by GI was taken to the GI lab and had a EGD which did not show any source of bleeding and patient was scheduled colonoscopy today, however patient was not able to tolerate GoLYTELY for colonoscopy and it is postponed till Friday, today patient still complains abdominal pain nausea vomiting patient is seen by Nephrology suspect his symptoms stemming from azotemia as patient has worsened kidney function patient is scheduled to have a dialysis on 10/08, however dialysis did bring slightly down his BUN and creatinine, however there is no significant improvement in abdominal pain nausea or vomit today, also on 10/09 patient complains of being dizzy, and had a couple of episode of vomiting, KUB was done which is essentially normal, will give the patient Reglan to help with nausea and vomiting this may relieve his dizziness, today patient states he felt better after Reglan, today nausea vomiting dizziness is better, later he had a BM and there there was blood, GI was informed suspect most likely hemorrhoid, if he can tolerate GoLYTELY can have colonoscopy to further evaluate, on 10/11 during dialysis patient developed chest pain lasting 15 minutes dull ache radiation to the back there was no associated nausea, vomiting or diaphoresis however patient states he did feel worse during the pain, patient tropes of slightly elevated and were trending cardiac echo did not show any significant structure abnormalities ejection fraction was within normal, patient completed his dialysis, today to further evaluate patient had a Lexiscan patient essentially normal, patient denies any complaint of chest pain shortness of breath palpitation fever, discussed with Dr. House waiting for placement outpatient dialysis center pending hepatitis serology, patient clinically stable will monitor may discharge home tomorrow (2) GI bleed: Qualifiers: GI bleed type/associated pathology: unspecified gastrointestinal hemorrhage type Qualified Code(s): K92.2 - Gastrointestinal hemorrhage, unspecified Code(s): K92.2 - Gastrointestinal hemorrhage, unspecified Status: Acute Assessment and Plan: Likely upper GI bleed as he has had black stools. Check FOBT. Fall precautions. Monitor H/H, transfuse prn. NPO. Protonix IV drip, Octreotide IV drip. GI has been consulted and will evaluate in am. (3) Elevated troponin: Code(s): R79.89 - Other specified abnormal findings of blood chemistry Status: Acute Assessment and Plan: No chest pain. Troponin leak is likely secondary to chronic renal failure. Trend troponin. Telemetry. Monitor for chest pain. (4) Cirrhosis of liver with ascites: Qualifiers: Hepatic cirrhosis type: unspecified hepatic cirrhosis Qualified Code(s): K74.60 - Unspecified cirrhosis of liver; R18.8 - Other ascites Code(s): K74.60 - Unspecified cirrhosis of liver; R18.8 - Other ascites Status: Chronic Assessment and Plan: The patient will need a paracentesis when he is medically stable. Continue GI recommendati
[2019-10-13] MEDS: ACETAMINOPHEN 325 MG TABLET 650 MG PO (16:02)
[2019-10-13 16:58] LABS: Glucose Point of Care 84 (65-105)
[2019-10-13 19:27] LABS: Hepatitis B Core Ab Total Nonreactive (Nonreactive)
[2019-10-13 20:36] LABS: Glucose Point of Care 269 (65-105)
[2019-10-14] VITALS (24 sets, daily range): BP systolic 101–168; BP diastolic 38–83; PULSE 45–71; RESP 16–20; TEMP 36.2–37; O2SAT 95–100
[2019-10-14 06:41] LABS: Hematocrit 23.3 % (42.0-52.0); Hemoglobin 7.4 g/dL (14.0-18.0); Mean Corpuscular HGB Conc 31.8 g/dl (32-36); Mean Corpuscular Hemoglobin 28.7 pg (26-34); Mean Corpuscular Volume 90.3 fl (80-100); Mean Platelet Volume 9.9 fl (7.4-10.4); Platelet Count Result 112 k/mm3 (150-375); Red Blood Count 2.58 M/mm3 (4.6-6.20); Red Cell Distribution Width 14.5 % (11.5-14.5); White Blood Count 6.2 K/mm3 (4.5-10.0)
[2019-10-14 06:53] LABS: Alkaline Phosphatase 62 U/L (38-126); Aspartate Amino Transferase 14 U/L (17-59); Bilirubin,Total 0.4 mg/dL (0.2-1.3); Blood Urea Nitrogen 30 mg/dL (9-20); Calcium 6.9 mg/dL (8.4-10.2); Carbon Dioxide 31 mmol/L (22-30); Chloride 97 mmol/L (98-107); Estimated CRCL calculation 16 ml/min; Estimated Glomerular Filt Rate 14; Glucose 71 mg/dL (75-110); Sodium 133 mmol/L (137-145)
[2019-10-14 07:05] LABS: Alanine Aminotransferase < 4 U/L (4-50)
--- NOTE | 2019-10-14 07:12 | WPDGIPROGNO ---
Progress Note: A&P Additional Plan patient alert and comfortable this morning. He offers no complaints. Tolerating diet without difficulty. No obvious bleeding reported. Physical exam reveals patient to be alert. Vital signs stable. Lungs are clear. Heart without murmur. Abdomen is soft nontender. Mild protuberance noted. Impression 1. Cirrhosis felt to be secondary to BURROWS. 2. Ascites. Cashiers to be secondary to cirrhosis. Appears to be improving with dialysis. Plan is to continue low-salt diet. He may require diuresis. Continue monitor daily weights. Monitor electrolytes as per renal service. 3. Rectal bleeding. Patient has been intolerant of preparation for colonoscopy. Suspect nausea related to azotemia. Plan is for outpatient colonoscopy. Will treat patient for hemorrhoids in the antrum. Stool softeners may be of some benefit. 4. End-stage renal disease. Patient now on dialysis. Creatinine improving. I suspect azotemia contributed to his previously reported nausea. Plan is to continue to monitor ascites with daily weights. Low-salt diet. Plan to schedule outpatient colonoscopy electively as his nausea improves. Hopefully he will tolerate perforation at that time. Discharge when okay with primary care service. Subjective Date/time seen: 10/14/19 07:12 Objective Data Vital Signs Vital Signs: Vital Signs - 24 hr 10/13/19 08:00 10/13/19 10:03 10/13/19 10:10 Temperature 97.7 F Pulse Rate 59 L 58 L Respiratory Rate 20 20 Blood Pressure 117/44 L Pulse Oximetry 97 97 10/13/19 12:00 10/13/19 13:56 10/13/19 16:00 Temperature 98.1 F Pulse Rate 60 56 L 56 L Respiratory Rate 18 Blood Pressure 129/44 L Pulse Oximetry 96 10/13/19 17:59 10/13/19 20:00 10/14/19 00:00 Temperature 97.3 F L 97.8 F 98.3 F Pulse Rate 58 L 59 L 51 L Respiratory Rate 18 14 18 Blood Pressure 124/51 L 112/52 L 112/42 L Pulse Oximetry 97 95 95 10/14/19 04:00 Temperature 98.2 F Pulse Rate 45 L Respiratory Rate 16 Blood Pressure 126/38 L Pulse Oximetry 97 Intake/Output Intake/Output: Intake & Output 10/11/19 10/12/19 10/13/19 10/14/19 23:59 23:59 23:59 23:59 Intake Total 1380 900 720 302 Output Total 1200 850 600 300 Balance 180 50 120 2 Meds/Results Medications: Active Medications Generic Name Dose Route Start Last Admin Trade Name Freq PRN Reason Stop Dose Admin Acetaminophen 650 mg 10/11/19 18:48 10/13/19 16:02 Tylenol Tablet PO 650 mg Q8HR PRN Administration Mild Pain (1-3) or Fever Bumetanide 2 mg 10/10/19 09:00 10/13/19 10:02 Bumex Po PO 2 mg DAILY NOÉ Administration Dextrose 12.5 gm 10/10/19 06:45 10/10/19 07:01 Dextrose 50% Syringe IV PUSH 12.5 gm PRN PRN Administration Hypoglycemia Protocol Epoetin Wily 10,000 units 10/11/19 09:00 10/13/19 10:10 Epogen IV PUSH Not Given [id number] NOÉ Glucagon 1 mg 10/10/19 06:45 Glucagon For Inj IM PRN PRN Hypoglycemia Protocol Glucose 15 gm 10/10/19 06:45 Glutose 15 PO PRN PRN Hypoglycemia Protocol Hydralazine HCl 50 mg 10/09/19 14:00 10/14/19 05:08 Apresoline Tablet PO Not Given Q8HR NOÉ Dextrose 1,000 mls @ 100 mls/hr 10/10/19 06:45 Dextrose 5% 1,000 Ml IVPB PRN PRN Hypoglycemia Protocol Meclizine HCl 12.5 mg 10/10/19 13:00 10/13/19 20:08 Antivert PO 12.5 mg QID NOÉ Administration Radiology Results: ITS Impressions Chest X-Ray 10/08/19 16:13 IMPRESSION: 1. Right internal jugular dialysis catheter ending with its tip in the right atrium. No pneumothorax. 2. Stable cardiomegaly. Central Venous Line 10/08/19 16:34 IMPRESSION: 1. Right internal jugular tunneled dialysis catheter insertion. Please refer to procedure note for full details. Renal Ultrasound 10/09/19 10:41 IMPRESSION: 1. No hydronephrosis. 2. Increased right renal echogenicity, could
[2019-10-14] MEDS: MECLIZINE HCL 12.5 MG TABLET PO ×3 (08:25→17:44)
--- NOTE | 2019-10-14 08:35 | PC.NURSE ---
To dialysis via bed.
--- NOTE | 2019-10-14 10:36 | PCNWS ---
Weekly nutritional screen. Patient is tolerating current diet with adequate intake. No weight loss reported. No nutritional needs at this time.
--- NOTE | 2019-10-14 11:09 | PM.PNNEP ---
Progress Note: A&P Assessment and Plan (1) Acute on chronic kidney failure: Code(s): N17.9 - Acute kidney failure, unspecified; N18.9 - Chronic kidney disease, unspecified Status: Acute Assessment and Plan: Naldo has chronic kidney disease. This is most likely due to hypertension. Now end-stage kidney. He is on dialysis. he will finish his dialysis today and start outpatient dialysis on Friday. Patient is eager for discharge (2) GI bleed: Code(s): K92.2 - Gastrointestinal hemorrhage, unspecified Status: Acute Assessment and Plan: The patient had a GI bleed. Hemoglobin is stable in the sevens. He is getting EPO (3) Anemia: Code(s): D64.9 - Anemia, unspecified Status: Acute Assessment and Plan: hemoglobin is 7.4 today.s. Getting EPO with each dialysis. (4) Hypertension: Qualifiers: Hypertension type: essential hypertension Qualified Code(s): I10 - Essential (primary) hypertension Code(s): I10 - Essential (primary) hypertension Status: Acute Assessment and Plan: Blood pressures are Doing better. Continue same medications. (5) Cirrhosis of liver with ascites: Qualifiers: Hepatic cirrhosis type: unspecified hepatic cirrhosis Qualified Code(s): K74.60 - Unspecified cirrhosis of liver; R18.8 - Other ascites Code(s): K74.60 - Unspecified cirrhosis of liver; R18.8 - Other ascites Status: Chronic Assessment and Plan: Gastroenterology is following the patient feels like he is getting close to needing another paracentesis. (6) Nephrolithiasis: Code(s): N20.0 - Calculus of kidney Status: Acute Assessment and Plan: Sees Urology as an outpatient Subjective Date/time seen: 10/14/19 11:09 Interval history: Patient is alert. He feels okay. he is on dialysis and tolerating it well. without were trying to remove fluid, his blood pressure did dropped from about 150 to about 110 gradually during the 1st hour period But in the last 1/2hour, his blood pressure has rebounded to about 140. We will try removing A little bit of fluid during the last 1-1/2 hours. He did have an echocardiogram to check for pericardial effusion and there was none. The patient was seen at 10:45 a.m. Exam Narrative: Exam Narrative: WDWN in NAD skin no rash or subcu nodules head ncat lungs clear To auscultation cor reg no rub or gallop abd BS+ nontender and soft ext trace to1+ edema. Objective Data Vital Signs Vital Signs: Vital Signs - 24 hr 10/13/19 12:00 10/13/19 13:56 10/13/19 16:00 Temperature 36.7 C Pulse Rate 60 56 L 56 L Respiratory Rate 18 Blood Pressure 129/44 L Pulse Oximetry 96 10/13/19 17:59 10/13/19 20:00 10/14/19 00:00 Temperature 36.3 C L 36.6 C 36.8 C Pulse Rate 58 L 59 L 51 L Respiratory Rate 18 14 18 Blood Pressure 124/51 L 112/52 L 112/42 L Pulse Oximetry 97 95 95 10/14/19 04:00 10/14/19 08:00 10/14/19 08:25 Temperature 36.8 C 36.7 C Pulse Rate 45 L 66 68 Respiratory Rate 16 16 18 Blood Pressure 126/38 L 141/52 H Pulse Oximetry 97 100 100 10/14/19 08:41 10/14/19 08:56 10/14/19 09:00 Temperature 36.6 C Pulse Rate 50 L 52 L 55 L Respiratory Rate 18 Blood Pressure 157/76 H 159/70 H 162/82 H Pulse Oximetry 10/14/19 09:15 10/14/19 09:30 10/14/19 09:45 Temperature Pulse Rate 59 L 70 71 Respiratory Rate Blood Pressure 112/44 L 101/51 L 110/55 L Pulse Oximetry 10/14/19 10:00 10/14/19 10:15 10/14/19 10:30 Temperature Pulse Rate 69 57 L 70 Respiratory Rate Blood Pressure 123/63 134/60 147/71 H Pulse Oximetry 10/14/19 10:45 10/14/19 11:00 Temperature Pulse Rate 68 65 Respiratory Rate Blood Pressure 163/83 H 168/81 H Pulse Oximetry Intake/Output Intake/Output: Intake & Output 10/11/19 10/12/19 10/13/19 10/14/19 23:59 23:59 23:59 23:59
--- NOTE | 2019-10-14 11:13 | P.DS_ITS ---
DS: Admitting Diagnosis Admitting Diagnosis Admitting Diagnosis: Anemia, unspecified DS: Discharge Diagnosis Discharge Diagnosis (1) Symptomatic anemia: Code(s): D64.9 - Anemia, unspecified Status: Acute Assessment and Plan: Appears to be secondary to acute GI Bleeding. Continue blood transfusion. Monitor H/H, transfuse prn. 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 House patient may need temporary dialysis and catheter for dialysis, patient presented emergency department complaint rectal bleeding with black tarry stool upon arrival to emergency depart patient hemoglobin was 5.9, patient was given 2 units of pack RBC, patient was seen by GI was taken to the GI lab and had a EGD which did not show any source of bleeding and patient was scheduled colonoscopy today, however patient was not able to tolerate GoLYTELY for colonoscopy and it is postponed till Friday, today patient still complains abdominal pain nausea vomiting patient is seen by Nephrology suspect his symptoms stemming from azotemia as patient has worsened kidney function patient is scheduled to have a dialysis on 10/08, however dialysis did bring slightly down his BUN and creatinine, however there is no significant improvement in abdominal pain nausea or vomit today, also on 10/09 patient complains of being dizzy, and had a couple of episode of vomiting, KUB was done which is essentially normal, will give the patient Reglan to help with nausea and vomiting this may relieve his dizziness, today patient states he felt better after Reglan, today nausea vomiting dizziness is better, later he had a BM and there there was blood, GI was informed suspect most likely hemorrhoid, if he can tolerate GoLYTELY can have colonoscopy to further evaluate, on 10/11 during dialysis patient developed chest pain lasting 15 minutes dull ache radiation to the back there was no associated nausea, vomiting or diaphoresis however patient states he did feel worse during the pain, patient tropes of slightly elevated and were trending cardiac echo did not show any significant structure abnormalities ejection fraction was within normal, patient completed his dialysis, today to further evaluate patient had a Lexiscan patient essentially normal, patient denies any complaint of chest pain shortness of breath palpitation fever, discussed with Dr. House waiting for placement outpatient dialysis center pending hepatitis serology, patient clinically stable will monitor may discharge home tomorrow (2) GI bleed: Qualifiers: GI bleed type/associated pathology: unspecified gastrointestinal hemorrhage type Qualified Code(s): K92.2 - Gastrointestinal hemorrhage, un specified Code(s): K92.2 - Gastrointestinal hemorrhage, unspecified Status: Acute Assessment and Plan: Likely upper GI bleed as he has had black stools. Check FOBT. Fall precautions. Monitor H/H, transfuse prn. NPO. Protonix IV drip, Octreotide IV drip. GI has been consulted and will evaluate in am. (3) Elevated troponin: Code(s): R79.89 - Other specified abnormal findings of blood chemistry Status: Acute Assessment and Plan: No chest pain. Troponin leak is likely secondary to chronic renal failure. Tr end troponin. Telemetry. Monitor for chest pain. (4) Cirrhosis of liver with ascites: Qualifiers: Hepatic cirrh
[2019-10-14] MEDS: EPOETIN ALFA-EPBX 10,000 UNITS/ML VIAL 10000 UNITS IV PUSH (11:34)
[2019-10-14] MEDS: HEPARIN SODIUM 1,000 UNITS/ML VIAL 1000 UNITS IV PUSH (12:35)
--- NOTE | 2019-10-14 12:50 | PC.NURSE ---
Returned from dialysis via bed.
[2019-10-14 13:30] LABS: Glucose Point of Care 81 (65-105)
[2019-10-14] MEDS: hydrALAZINE HCL 50 MG TABLET PO (13:39)
[2019-10-14] MEDS: BUMETANIDE 1 MG TABLET 2 MG PO (13:39)
[2019-10-14 16:41] LABS: Glucose Point of Care 161 (65-105)
== END 2019-10-14 18:05 | disposition home health service (06) | DRG 378 ==
LOC: ANHED 10-07 00:58 → ANHIMU 10-07 01:49 → ANH3MED 10-08 06:48 → ANHIMU 10-15 13:18
PROVIDERS: Internal Medicine Gastroenterology; Internal Medicine Nephrology; Surgery; Admitting Provider Family Medicine; Emergency Provider Emergency Medicine; PCP Family Medicine; Visit Provider Family Medicine
PROC: 0DJ08ZZ Inspection of Upper Intestinal Tract, Via Natural or Artificial Opening Endoscopic (ICD-10-PCS; CPT 43235; principal; 2019-10-07 10:30)
PROC: 0JH60XZ Insertion of Tunneled Vascular Access Device into Chest Subcutaneous Tissue and Fascia, Open Approach (ICD-10-PCS; CPT 36908; principal; 2019-10-08 15:00)
DX: K92.2 Gastrointestinal hemorrhage, unspecified (principal); D62 Acute posthemorrhagic anemia; I13.0 Hypertensive heart and chronic kidney disease with heart failure and stage 1 through stage 4 chronic kidney disease, or unspecified chronic kidney disease; N18.4 Chronic kidney disease, stage 4 (severe); I50.32 Chronic diastolic (congestive) heart failure; R18.8 Other ascites; N17.9 Acute kidney failure, unspecified; K74.60 Unspecified cirrhosis of liver; I48.0 Paroxysmal atrial fibrillation; I25.10 Atherosclerotic heart disease of native coronary artery without angina pectoris; G47.33 Obstructive sleep apnea (adult) (pediatric); N20.0 Calculus of kidney; K75.81 Nonalcoholic steatohepatitis (NASH); D63.1 Anemia in chronic kidney disease; I27.20 Pulmonary hypertension, unspecified; R79.89 Other specified abnormal findings of blood chemistry; E87.5 Hyperkalemia; E78.5 Hyperlipidemia, unspecified; Z95.1 Presence of aortocoronary bypass graft; Z87.891 Personal history of nicotine dependence; Z79.02 Long term (current) use of antithrombotics/antiplatelets
CPT/HCPCS: 36415; 36430; 74018; 76775; 77001; 78452; 80048; 80053; 80069; 81003; 82274; 82728; 83540; 83550; 83690; 83735; 84100; 84484; 85014; 85018; 85025; 85027; 85610; 85730; 86704; 86706; 86803; 86850; 86900; 86901; 86923; 87340; 93005; 93017; 93306; 96374; 97110; 97161; 97165; 97530; 97535; 99285; A9270; A9502; C1750; C9113; G0257; J0690; J1644; J2354; J2370; J2405; J2704; J2765; J2785; J3010; J7030; J7040; J7050; J7060; J7120; P9016; Q4081; Q5106

== ENCOUNTER 2019-10-07 13:30 | Outpatient (RCR) | payer MEDICARE, SELFPAY ==
[2019-08-19 12:12] LABS: Mean Platelet Volume 9.3 fl (7.4-10.4); Platelet Count Result 164 k/mm3 (150-375)
[2019-08-19 15:17] LABS: INR 1.1; Prothrombin Time 13.7 Seconds (11.1-14.7)
--- NOTE | ~2019-10-07 | US_ITS ---
EXAMINATION: US paracentesis abd w/image DATE: 08/30/2019 10:24 INDICATION: Ascites. TECHNIQUE: The procedure and its risks, benefits, and alternatives were discussed with the patient. P otential risks discussed included bleeding and infection. The skin was prepped and draped in sterile fashion. 1% lidocaine was used for local anesthesia. Under ultrasound guidance, a 5 Fr catheter with trochar was advanced into the ascites in the left lower quadrant. Fluid was aspirated. The catheter w as removed, and a dressing was applied. There were no immediate complications. FINDINGS: Ultrasound images demonstrate ascites and the catheter within the fluid. IMPRESSION: 1. Successful ultrasound-guided paracentesis yielding 5000 mL of cloudy, yellow-brown fluid. Reviewed, dictated and finalized at location A. IMPRESSION: 1. Successful ultrasound-guided paracentesis yielding 5000 mL of cloudy, yello w-brown fluid.
--- NOTE | ~2019-10-07 | US_ITS ---
EXAMINATION: US paracentesis abd w/image DATE: 08/23/2019 14:11 INDICATION: Cirrhosis and ascites TECHNIQUE: The procedure and its risks and benefits were discussed with the patient. Potential risks discussed included bleeding and infection. The skin was prepped and draped in sterile fashion. 1% lid ocaine was used for local anesthesia. Under ultrasound guidance, a 5 Fr catheter with trochar was adv anced into the ascites in the right lower quadrant. Fluid was aspirated into vacuum bottles. The cath eter was removed, and a dressing was applied. There were no immediate complications. FINDINGS: Ultrasound images demonstrate ascites and the catheter within the fluid. IMPRESSION: 1. Successful ultrasound-guided paracentesis yielding 5000 mL of clear robb-colored fluid. Reviewed, dictated and finalized at location A. IMPRESSION: 1. Successful ultrasound-guided paracentesis yielding 5000 mL of clear robb-c olored fluid.
--- NOTE | ~2019-10-07 | US_ITS ---
EXAMINATION: US paracentesis abd w/image DATE: 08/02/2019 10:44 INDICATION: Ascites. TECHNIQUE: The procedure and its risks and benefits were discussed with the patient. Potential risks discussed included bleeding and infection. The skin was prepped and draped in sterile fashion. 1% lid ocaine was used for local anesthesia. Under ultrasound guidance, a 5 Fr catheter with trochar was adv anced into the ascites in the left lower quadrant. Fluid was aspirated into vacuum bottles. The laura ter was removed, and a dressing was applied. There were no immediate complications. FINDINGS: Ultrasound images demonstrate ascites and the catheter within the fluid. IMPRESSION: 1. Successful ultrasound-guided paracentesis yielding 5000 mL of robb-colored fluid. Reviewed, dictated and finalized at location A.
--- NOTE | ~2019-10-07 | US_ITS ---
EXAMINATION: US paracentesis abd w/image DATE: 08/19/2019 14:23 INDICATION: Ascites. TECHNIQUE: The procedure and its risks, benefits, and alternatives were discussed with the patient. P otential risks discussed included bleeding and infection. The skin was prepped and draped in sterile fashion. 1% lidocaine was used for local anesthesia. Under ultrasound guidance, a 5 Fr catheter with trochar was advanced into the ascites in the left lower quadrant. Fluid was aspirated. The catheter w as removed, and a dressing was applied. There were no immediate complications. FINDINGS: Ultrasound images demonstrate ascites and the catheter within the fluid. IMPRESSION: 1. Successful ultrasound-guided paracentesis yielding 5000 mL of robb-colored fluid. Reviewed, dictated and finalized at location A.
--- NOTE | ~2019-10-07 | US_ITS ---
EXAMINATION: US paracentesis abd w/image DATE: 08/11/2019 11:04 INDICATION: Ascites. TECHNIQUE: The skin was prepped and draped in sterile fashion. 1% lidocaine was used for local anesth esia. Under ultrasound guidance, a 5 Fr catheter with trochar was advanced into the ascites in the le ft lower quadrant. Fluid was aspirated. The catheter was removed, and a dressing was applied. There w ere no immediate complications. FINDINGS: Ultrasound images demonstrate ascites and the catheter within the fluid. IMPRESSION: 1. Successful ultrasound-guided paracentesis yielding 5000 mL of cloudy, yellow fluid. Reviewed, dictated and finalized at location A. IMPRESSION: 1. Successful ultrasound-guided paracentesis yielding 5000 mL of cloudy, yello w fluid.
--- NOTE | ~2019-10-07 | US_ITS ---
EXAMINATION: US paracentesis abd w/image DATE: 07/19/2019 11:44 INDICATION: Ascites. TECHNIQUE: The procedure and its risks and benefits were discussed with the patient. Potential risks discussed included bleeding and infection. The skin was prepped and draped in sterile fashion. 1% lid ocaine was used for local anesthesia. Under ultrasound guidance, a 5 Fr catheter with trochar was adv anced into the ascites in the left lower quadrant. Fluid was aspirated into vacuum bottles. The laura ter was removed, and a dressing was applied. There were no immediate complications. FINDINGS: Ultrasound images demonstrate ascites and the catheter within the fluid. IMPRESSION: 1. Successful ultrasound-guided paracentesis yielding 5000 mL of opaque milky mauve colored fluid. Reviewed, dictated and finalized at location A.
--- NOTE | ~2019-10-07 | US_ITS ---
EXAMINATION: US paracentesis abd w/image DATE: 07/26/2019 10:00 INDICATION: Ascites. TECHNIQUE: The procedure and its risks, benefits, and alternatives were discussed with the patient. P otential risks discussed included bleeding and infection. The skin was prepped and draped in sterile fashion. 1% lidocaine was used for local anesthesia. Under ultrasound guidance, a 5 Fr catheter with trochar was advanced into the ascites in the left lower quadrant. Fluid was aspirated. The catheter w as removed, and a dressing was applied. There were no immediate complications. FINDINGS: Ultrasound images demonstrate ascites and the catheter within the fluid. IMPRESSION: 1. Successful ultrasound-guided paracentesis yielding 5000 mL of robb-colored fluid. Reviewed, dictated and finalized at location A.
== END 2019-10-17 23:59 | disposition home or self-care (01) ==
LOC: ANHIMG 13:30
PROVIDERS: Visit Provider Internal Medicine Nephrology
DX: R18.8 Other ascites (principal); K74.69 Other cirrhosis of liver
CPT/HCPCS: 36415; 49083; 85049; 85610; C1729

== ENCOUNTER 2019-11-06 10:05 | Inpatient (IN) | payer MEDICARE, SELFPAY ==
[2019-11-06] VITALS (29 sets, daily range): BP systolic 79–186; BP diastolic 42–88; PULSE 52–67; RESP 13–24; TEMP 36–37.2; O2SAT 95–100
--- NOTE | ~2019-11-06 | US_ITS ---
EXAMINATION: US venous doppler [facility] DATE: 11/07/2019 13:56 INDICATION: Lower limb edema TECHNIQUE: Plunkett scale images without and with compression and Doppler images of the bilateral lower e xtremity veins were obtained. COMPARISON: 09/06/2019 FINDINGS: The right common femoral vein, profunda femoral vein, femoral vein, popliteal vein, peroneal trunk, p osterior tibial veins, and greater saphenous vein are patent. The left common femoral vein, profunda femoral vein, femoral vein, popliteal vein, peroneal trunk, po sterior tibial veins, and greater saphenous vein are patent. IMPRESSION: 1. Patent bilateral lower extremity veins. No evidence of deep venous thrombosis. Reviewed, dictated and finalized at location A. IMPRESSION: 1. Patent bilateral lower extremity veins. No evidence of deep venous thrombosi s.
--- NOTE | 2019-11-06 10:16 | ECG_ITS ---
Measurements Intervals [place] Rate: 66 P: SC: 0 QRS: -57 QRSD: 103 T: 114 QT: 412 QTc: 435 Interpretive Statements ATRIAL FIBRILLATION LEFT AXIS DEVIATION INCOMPLETE LEFT BUNDLE BRANCH BLOCK POOR R WAVE PROGRESSION, CONSIDER ANTERIOR INFARCT ST-T WAVE ABNORMALITY IN HIGH LATERAL LEADS- CONSIDER ISCHEMIA BASELINE WANDER- V3 ABNORMAL ECG Electronically Signed On 11-06-2019 12:38:55 CDT by Peter Pollack D.O.
[2019-11-06 10:29] LABS: Basophils Absolute Auto 0.1 K/mm3 (0.0-0.1); Basophils Percent Auto 1.2 % (0.2-1.2); Eosinophils Absolute Auto 0.7 K/mm3 (0-0.3); Eosinophils Percent Auto 9.6 % (0-4.4); Immature Granulocyte Absolute 0.15 K/mm3 (0.00-0.031); Lymphocytes Absolute Auto 0.74 K/mm3 (0.9-3.2); Lymphocytes Percent Auto 9.9 % (18.3-44.2); Mean Corpuscular HGB Conc 31.7 g/dl (32-36); Mean Corpuscular Hemoglobin 30.2 pg (26-34); Mean Corpuscular Volume 95.3 fl (80-100); Mean Platelet Volume 8.7 fl (7.4-10.4); Monocytes Absolute Auto 0.9 K/mm3 (0.1-0.6); Monocytes Percent Auto 12.1 % (2.6-8.5); Neutrophils Absolute Auto 4.9 K/mm3 (1.3-6.7); Neutrophils Percent Auto 65.2 % (45.5-73.1); Platelet Count Result 161 k/mm3 (150-375); Red Blood Count 1.92 M/mm3 (4.6-6.20); Red Cell Distribution Width 17.3 % (11.5-14.5); White Blood Count 7.5 K/mm3 (4.5-10.0)
[2019-11-06 10:32] LABS: Hematocrit 18.3 % (42.0-52.0); Hemoglobin 5.8 g/dL (14.0-18.0)
[2019-11-06 10:49] LABS: Potassium 4.3 mmol/L (3.4-5.0)
[2019-11-06 10:50] LABS: INR 1.3; Prothrombin Time 15.5 Seconds (11.1-14.7)
[2019-11-06 10:52] LABS: Alanine Aminotransferase 15 U/L (4-50); Albumin Level 2.4 g/dL (3.5-5.1); Alkaline Phosphatase 169 U/L (38-126); Anion Gap 5 mmol/L (8-16); Aspartate Amino Transferase 33 U/L (17-59); Bilirubin,Total 0.4 mg/dL (0.2-1.3); Blood Urea Nitrogen 29 mg/dL (9-20); Calcium 7.6 mg/dL (8.4-10.2); Carbon Dioxide 29 mmol/L (22-30); Chloride 98 mmol/L (98-107); Estimated CRCL calculation 20 ml/min; Estimated Glomerular Filt Rate 19; Glucose 82 mg/dL (75-110); Sodium 132 mmol/L (137-145)
--- NOTE | 2019-11-06 11:14 | ED.GENADULT ---
HPI - General Adult General Chief complaint: Recheck/Abnormal Lab/Rx Stated complaint: low hemoglobin Time Seen by Provider: 11/06/19 10:31 Source: patient Mode of arrival: EMS Limitations: no limitations History of Present Illness HPI narrative: Patient is a 69-year-old male who presents to emergency department for evaluation of weakness and low hemoglobin patient was at dialysis this morning sent over due to low hemoglobin. Patient notes no pain at this time has felt slightly short of breath patient on arrival resting comfortably patient did not get dialysis today patient is followed by Dr. Calhoun for nephrology. Patient has had similar occurrence in the past with unknown etiology for his anemia. Patient was told by nephrology to come for transfusion . Patient denies recent illness or other complaints specifically no rectal bleeding or melena Related Data Home Medications Medication Instructions Recorded Confirmed albuterol sulfate 90 mcg/actuation 1 puff INHALATION Q4H PRN 05/24/19 10/07/19 aerosol inhaler aspirin 81 mg chewable tablet 81 mg PO DAILY 05/24/19 10/07/19 hydralazine 50 mg tablet 50 mg PO TID 05/24/19 10/07/19 bumetanide 2 mg PO DAILY 09/06/19 10/07/19 calcitriol 0.25 mcg PO DAILY 09/06/19 10/07/19 Allergies Allergy/AdvReac Type Severity Reaction Status Date / Time codeine Allergy Unknown RASH/BLISTE Verified 11/06/19 10:18 RS Review of Systems Review of Systems: All systems reviewed & are unremarkable except as noted in HPI and below PMFSH Past Medical History Medical History Anemia Chronic diastolic (congestive) heart failure Cirrhosis of liver with ascites CKD (chronic kidney disease) stage 4, GFR 15-29 ml/min Coronary artery 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 Edema of both legs H/O: HTN (hypertension) DIMITRIS (obstructive sleep apnea) Other ascites PAF (paroxysmal atrial fibrillation) Presence of Watchman left atrial appendage closure device Pulmonary hypertension Surgical History Surgical History History of penile implant History of tonsillectomy Hx of CABG Social History Social History Smoking packs per day: 1 Smoking cigarettes per day: 20.0 Years smoked: 10 Smoking pack-years: 10.00 Smoking status: Former smoker Tobacco type: cigarettes Smoking end date: 03/17/75 Alcohol intake: current Drinks per week: 2 Substance use: never Gender identity (if verbalized by the patient): Male Spiritual care concerns: No Exam Narrative: Exam Narrative: GENERAL: Chronically ill-appearing, well-nourished, and in no acute distress. HEAD: Normocephalic, atraumatic. EYES: PERRLA and EOMI. ENT: Nares clear, no rhinorrhea or epistaxis. Mucous membranes moist. Oropharynx without tonsillar hypertrophy exudate or other lesions. CHEST: Clear to auscultation. No respiratory distress. No wheezes rales or rhonchi HEART: Regular rate and rhythm. No murmur heard. Normal peripheral pulses. ABDOMEN: Soft, nontender, nondistended RECTAL: Guaiac positive EXTREMITIES: Normal range of motion. 4+ edema of the lower extremities SKIN: Warm, dry, no rash. NEURO: No focal deficits. Alert and oriented x3. Cranial nerves II through XII grossly intact PSYCH: Normal mood and affect. Course Course Emergency Course: Patient will be placed in hospital for continued anemia with nephrology hospitalist and gastroenterology consults and evaluation. Patient will be transfused 1 unit of blood being transfused at this time. Nephrology will assist with dialysis. Patient resting comfortably in the room at this time in no distress Reevaluation(s) Reevaluation #1: Patient in the room in no distress agreeing to stay in hospital resting comfortably receiving his blood products at this time D
[2019-11-06] MEDS: TUBING, BLOOD PLUM PUMP TUBING 1 EACH XX (11:32)
[2019-11-06] MEDS: SODIUM CHLORIDE 0.9% IV 250 ML 30 ML IV CONT (11:32)
--- NOTE | 2019-11-06 13:18 | ED.RECABL ---
HPI - Recheck/Abnormal Lab/Rx General Chief Complaint: Recheck/Abnormal Lab/Rx Stated Complaint: low hemoglobin Time Seen by Provider: 11/06/19 10:31 Source: patient Mode of arrival: EMS Limitations: no limitations History of Present Illness HPI narrative: Patient is a 69-year-old male who presents Related Data Home Medications Medication Instructions Recorded Confirmed albuterol sulfate 90 mcg/actuation 1 puff INHALATION Q4H PRN 05/24/19 10/07/19 aerosol inhaler aspirin 81 mg chewable tablet 81 mg PO DAILY 05/24/19 10/07/19 hydralazine 50 mg tablet 50 mg PO TID 05/24/19 10/07/19 bumetanide 2 mg PO DAILY 09/06/19 10/07/19 calcitriol 0.25 mcg PO DAILY 09/06/19 10/07/19 Allergies Allergy/AdvReac Type Severity Reaction Status Date / Time codeine Allergy Unknown RASH/BLISTE Verified 11/06/19 10:18 [facility] Past Medical History Medical History Anemia Chronic diastolic (congestive) heart failure Cirrhosis of liver with ascites CKD (chronic kidney disease) stage 4, GFR 15-29 ml/min Coronary artery 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 Edema of both legs H/O: HTN (hypertension) DIMITRIS (obstructive sleep apnea) Other ascites PAF (paroxysmal atrial fibrillation) Presence of Watchman left atrial appendage closure device Pulmonary hypertension Surgical History Surgical History History of penile implant History of tonsillectomy Hx of CABG Social History Social History Smoking packs per day: 1 Smoking cigarettes per day: 20.0 Years smoked: 10 Smoking pack-years: 10.00 Smoking status: Former smoker Tobacco type: cigarettes Smoking end date: 03/17/75 Alcohol intake: current Drinks per week: 2 Substance use: never Gender identity (if verbalized by the patient): Male Spiritual care concerns: No Course Vital Signs Vital signs: Vital Signs Temperature 98.7 F 11/06/19 10:10 Pulse Rate 67 11/06/19 10:10 Respiratory Rate 17 11/06/19 10:10 Blood Pressure 146/46 H 08/22/20 10:10 Pulse Oximetry 100 11/06/19 10:10 Temperature 98.5 F 11/06/19 12:50 Pulse Rate 65 11/06/19 12:50 Respiratory Rate 15 11/06/19 12:50 Blood Pressure 151/57 H 11/06/19 12:50 Pulse Oximetry 95 11/06/19 12:50 MDM - Recheck/Abnormal Lab/Rx Lab Data Result diagrams: 11/06/19 10:22 11/06/19 10:22 Labs: Lab Results 11/06/19 11/06/19 11/06/19 Range/Units 10:22 10:22 10:22 WBC 7.5 (4.5-10.0) K/mm3 RBC 1.92 L (4.6-6.20) M/mm3 Hgb 5.8 L* (14.0-18.0) g/dL Hct 18.3 L* (42.0-52.0) % MCV 95.3 (80-100) fl MCH 30.2 (26-34) pg MCHC 31.7 L (32-36) g/dl RDW 17.3 H (11.5-14.5) % Plt Count 161 (150-375) k/mm3 MPV 8.7 (7.4-10.4) fl Immature Gran % (Auto) 2.0 H (0-0.5) % Neut % (Auto) 65.2 (45.5-73.1) % Lymph % (Auto) 9.9 L (18.3-44.2) % Iron % (Auto) 12.1 H (2.6-8.5) % Eos % (Auto) 9.6 H (0-4.4) % Baso % (Auto) 1.2 (0.2-1.2) % Lymph # (Auto) 0.74 L (0.9-3.2) K/mm3 Iron # (Auto) 0.9 H (0.1-0.6) K/mm3 Eos # (Auto) 0.7 H (0-0.3) K/mm3 Baso # (Auto) 0.1 (0.0-0.1) K/mm3 Abs Immat Gran (auto) 0.15 H (0.00-0.031) K/mm3 Absolute Neuts (auto) 4.9 (1.3-6.7) K/mm3 Absolute Nucleated RBC 0.0 (0.0-0.012) K/mm3 Nucleated RBC % 0.0 (0.0-0.2) % PT (11.1-14.7) Seconds INR APTT (22.3-36.8) SECONDS Sodium 132 L (137-145) mmol/L Potassium 4.3 (3.4-5.0) mmol/L Chloride 98 (98-107) mmol/L Carbon Dioxide 29 (22-30) mmol/L Anion Gap 5 L (8-16) mmol/L BUN 29 H (9-20) mg/dL Creatinine 3.30 H (0.7-1.3) mg/dL Estim Creat Clear Calc 20 ml/min Estimated GFR 19 L (59 - ) Glucose 82 (75-110) mg/dL C
--- NOTE | 2019-11-06 14:05 | ADMGEN ---
This patient, Naldo Lowry, was admitted to Medical Room 258-01. Patient/family oriented to hospital policies and general routines including ID bracelet, bed and alarms, visiting hours, pain management, procedures, bathroom and other care routines, personal items, smoking policy, room service/diet, and visiting hours. Valuables list has been completed. Information on how to activate the Rapid Response Team has been discussed. Patient/Family are encouraged to report perceived risks to care and to ask questions if they do not understand what they are told or what they should do.
--- NOTE | 2019-11-06 15:45 | PM.IMHP ---
H&P: HPI History of Present Illness Date/Time: 11/06/19 15:45 Chief complaint: Low hemoglobin. Narrative: Naldo Lowry is a 69-year-old male with history of chronic anemia requiring multiple blood transfusions, coronary artery disease status post CABG in 2007, end-stage renal disease on hemodialysis since September 2019, paroxysmal atrial fibrillation status post left atrial appendage closure, diastolic congestive heart failure, pulmonary hypertension, COPD, obstructive sleep apnea, and diet-controlled type 2 diabetes mellitus who presented to the emergency department earlier today at the instruction of Dr. Piper for further treatment and evaluation of a low hemoglobin level noted on labs drawn this morning prior to dialysis. He has a history of occult GI blood loss and has had endoscopies and colonoscopies, including right-sided colonoscopy at [facility] in 2018, reportedly without an obvious source of bleeding. More recently he was hospitalized on October 07, 2019 with symptomatic anemia and suspected upper GI bleed however upper endoscopy per Dr. Hull failed to demonstrate a source of bleeding, specifically there was no evidence of varices or ulceration. Colon prep was attempted for several days however the patient was intolerant of that due to ongoing nausea, and outpatient colonoscopy was planned however has yet to be done. Over the past several days, he has had dizziness /lightheadedness if he changes positions to quickly, but really has no other complaints. He has not noticed any blood in the stool, and specifically denies melena and hematochezia. He had a bowel movement early this morning, which he describes as unremarkable and light brown in color.He is chronically fatigued and has dyspnea on exertion, both which are unchanged. No chest pain, pleuritic pain, or palpitations. He denies abdominal pain, nausea, and vomiting. Of note, Dr. Piper has been giving him increasing doses of Epogen, but his hemoglobin continues to drift down. Review of Systems Review of Systems: Narrative: Twelve systems were reviewed with pertinent positives and negatives as per HPI. No fever, chills, or sweats. No recent cold or flu symptoms. He denies recent travel exposure to those positive for COVID-19. No known sick contacts. He has chronic edema which she believes is unchanged. He has an appointment later this week with a Dr. Blankenship in [place] for what sounds like evaluation for possible tips procedure. Intermittently over the years the patient has had paracenteses but again he has no known history of varices. He does still urinate and denies dysuria, hematuria, hesitancy, and frequency. Except as documented, all other systems were reviewed and are negative. [facility] Past Medical History Medical History (Updated 11/06/19 @ 17:46 by Zarina Gruber PA-C) Chronic anemia Chronic diastolic congestive heart failure Echocardiogram in September 2019 showed normal left ventricular size and function with an ejection fraction estimated at 60 to 65% with abnormal diastolic function, moderate biatrial enlargement, mild aortic valve sclerosis, moderate aortic valve regurgitation, and trace mitral and tricuspid valve regurgitation. Chronic obstructive pulmonary disease Cirrhosis of liver with ascites Attributed to BURROWS however he has never had a liver biopsy. Coronary artery disease Status post 7 vessel CABG in 2007. No definite infarct or ischemia on nuclear stress test in September 2019. Diet-controlled type 2 diabetes mellitus End-stage renal disease on hemodialysis On dialysis Friday, , Friday. Gastroesophageal reflux disease GI bleed March 2014, November 2017, and more recently suspected occult GI loss in September 2019. Hyperlipidemia Hypertension Left bundle branch block Obstructive sleep apnea on CPAP Paroxysmal atrial fibrillation not on long-term anticoagulation given history of GI bleed. Status post watchman left atrial appendage closure device insertion. Pe
[2019-11-06 18:09] LABS: Hematocrit 25.1 % (42.0-52.0); Hemoglobin 8.3 g/dL (14.0-18.0)
[2019-11-06] MEDS: PANTOPRAZOLE SODIUM IV 40 MG VIAL IV PUSH (19:44)
[2019-11-06] MEDS: EPOETIN ALFA-EPBX 10,000 UNITS/ML VIAL 20000 UNITS IV PUSH (22:40)
[2019-11-06 22:45] LABS: Hepatitis B Surface Antigen Negative (Negative)
[2019-11-06 23:03] LABS: Hepatitis B Surface Anti Res Negative
[2019-11-07] VITALS (9 sets, daily range): BP systolic 112–162; BP diastolic 49–84; PULSE 51–67; RESP 16–20; TEMP 36.2–36.4; O2SAT 98–100
[2019-11-07] MEDS: PANTOPRAZOLE SODIUM IV 40 MG VIAL IV PUSH ×2 (09:54→20:58)
[2019-11-07] MEDS: EUCERIN CREAM 120 GM JAR 1 APPLIC TOPICAL (09:54)
[2019-11-07] MEDS: hydrALAZINE HCL 50 MG TABLET PO ×3 (10:23→17:33)
[2019-11-07] MEDS: calcitrioL 0.25 MCG CAPSULE PO (10:24)
[2019-11-07] MEDS: BUMETANIDE 1 MG TABLET 2 MG PO (10:24)
--- NOTE | 2019-11-07 12:37 | PM.CNNEP ---
Assessment and Plan Assessment and plan (1) End-stage renal disease on hemodialysis: Code(s): N18.6 - End stage renal disease; Z99.2 - Dependence on renal dialysis Status: Acute (2) Profound anemia: Code(s): D64.9 - Anemia, unspecified Status: Acute (3) Chronic diastolic (congestive) heart failure: Code(s): I50.32 - Chronic diastolic (congestive) heart failure Status: Chronic (4) Hypertension: Code(s): I10 - Essential (primary) hypertension Status: Acute (5) Cirrhosis of liver with ascites: Qualifiers: Hepatic cirrhosis type: unspecified hepatic cirrhosis Qualified Code(s): K74.60 - Unspecified cirrhosis of liver; R18.8 - Other ascites Code(s): K74.60 - Unspecified cirrhosis of liver; R18.8 - Other ascites Status: Chronic (6) Obstructive sleep apnea on CPAP: Code(s): G47.33 - Obstructive sleep apnea (adult) (pediatric); Z99.89 - Dependence on other enabling machines and devices Status: Acute Assessment and Plan: . Additional Plan Naldo has end-stage renal disease. He received dialysis yesterday evening to maintain his Friday schedule as well as for ongoing optimization of his electrolytes, volume status, and clearance. We will continue his outpatient dialysis regimen while remains hospitalized here at [facility]. He received a packed red blood cell transfusion with an appropriate increment in his hemoglobin and hematocrit. Gastroenterology has been consulted for further assessment of his anemia particularly since he has been receiving high doses of Epogen therapy with dialysis and he has been having a slow decrement in his hemoglobin and hematocrit over the last two weeks. Next The concern of course is that is he losing blood through his GI tract although given his history of end-stage renal disease, it is very possible that perhaps maybe he is nonresponsive to Epogen therapy. If this is indeed the case, then perhaps maybe hematology consultation is worth considering to see if there is any other avenues of therapy we can do to prevent further dropped his hemoglobin and hematocrit. I will continue to follow his CKD parameters while he remains hospitalized and make further adjustments to his medications and dialysis prescription as deemed necessary I will continue to follow the patient with you while remains hospitalized and make further recommendations depending on his hospital course. Thank you for allowing me to participate in the care of this patient. History of Present Illness Reason for Consult Consult date: 11/07/19 Reason for consult: end stage renal disease Chief Complaint Chief complaint: Low hemoglobin. History of Present Illness Narrative: The patient is a 69-year-old male with a past medical history as outlined above who presented to [facility] ER for further evaluation of his significant anemia. The patient had outpatient labs done with his last dialysis treatment on 11/04/2019 which demonstrated a hemoglobin of 5.7. Furthermore, over the last two weeks, his hemoglobin has been slowly dropping from around 8.6 to its current value despite increasing doses of Epogen as well as IV iron therapy with his dialysis treatments. The concern was that perhaps maybe he was losing blood through his GI tract although he did not give any specific symptoms to suggest this. He was recently hospitalized about a month ago for anemia as well although upper endoscopy at that time failed to reveal any bleeding and he was unable to get a colonoscopy as the prep for this was difficult for him to handle. Over the past several days, he also has been complaining of dizziness and lightheadedness but no other acute symptoms with regard to chest pain, shortness of breath, nausea, vomiting, hematochezia, or melena. Workup and evaluation in the emergency room demonstrated the patient to be hemodynamically stable and rout
--- NOTE | 2019-11-07 12:59 | PM.IMPN ---
Progress Note: A&P Assessment and Plan (1) Profound anemia: Code(s): D64.9 - Anemia, unspecified Status: Acute Assessment and Plan: Hemoglobin continues to fall despite increasing Epogen with dialysis, concerning for occult GI loss. He was transfused 2 units pRBC on 11/06/2019. H&H improved today following transfusion. Monitor H&H closely. Transfuse as needed. Dr. Hull was consulted by the ED provider in his input is appreciated given concerns for occult GI loss. Plan for colonoscopy tomorrow. If no GI findings, will consider hematology consultation. (2) End-stage renal disease on hemodialysis: Code(s): N18.6 - End stage renal disease; Z99.2 - Dependence on renal dialysis Status: Acute Assessment and Plan: He receives dialysis on Friday, , and Friday. Last dialysis was yesterday, 11/05. Dr. Piper consulted for dialysis. Monitor electrolytes. (3) Chronic diastolic congestive heart failure: Code(s): I50.32 - Chronic diastolic (congestive) heart failure Status: Acute Assessment and Plan: He is quite edematous in the lower limbs, which he states is chronic. Lower extremity edema is improved from my last evaluation of this patient in August 2019. Monitor volume status closely. Monitor I&O. (4) Cirrhosis of liver with ascites: Qualifiers: Hepatic cirrhosis type: unspecified hepatic cirrhosis Qualified Code(s): K74.60 - Unspecified cirrhosis of liver; R18.8 - Other ascites Code(s): K74.60 - Unspecified cirrhosis of liver; R18.8 - Other ascites Status: Chronic Assessment and Plan: He does not appear to have massive ascites at this time. Continue Bumex. (5) Hypertension: Code(s): I10 - Essential (primary) hypertension Status: Acute Assessment and Plan: Blood pressures are not at goal, in the 150s systolic. Continue antihypertensives and monitor closely Consider dose adjustment if no improvement. (6) Obstructive sleep apnea on CPAP: Code(s): G47.33 - Obstructive sleep apnea (adult) (pediatric); Z99.89 - Dependence on other enabling machines and devices Status: Acute Assessment and Plan: CPAP will be provided for him while hospitalized. Subjective Date/time seen: 11/07/19 12:59 Interval history: Date of service: 11/07/2019 Patient is a 69-year-old male with history of ESRD on HD, DIMITRIS, AFib, and liver cirrhosis Known to me from prior hospitalization in August 2019 who is here for anemia. He is feeling well today. He will be undergoing colonoscopy tomorrow and has begun his prep. He had a formed bowel movement earlier today but has not had any subsequent bowel movements. He denies any active bleeding or bruising. He feels a bit lightheaded occasionally and very weak. Other than this he denies shortness of breath, dizziness, palpitations, chest pain, fatigue, or pallor. he has chronic lower extremity edema which he states is improved at this time. He denies abdominal pain, nausea, vomiting, fever, or chills. His appetite has been good. He complains of chronic back pain which is exacerbated by lying supine in bed. He denies cough, sore throat, dysphagia, headache, or visual changes. Review of Systems Review of Systems: Narrative: A 12 point review of systems was reviewed with pertinent positives and negatives as per HPI. Exam Narrative: Exam Narrative: Mr. Lowry is a well-nourished 69-year-old male who is lying supine in bed. He appears comfortable and is in no acute respiratory distress. HR 58, BP 155/56, R 16, T 97.1?, 98% on room air Neuro: awake, alert and oriented x4, speech clear, no focal neuro deficits noted HEENMT: normocephalic, atraumatic, EOMI, sclerae anicteric, moist oral mucosa, tongue midline Neck: supple, no lymphadenopathy Respiratory: clear to auscultation bilaterally, nonlabored breathing Cardio: reg
[2019-11-07] MEDS: polyethylene glycoL 3350 238 GM BOTTLE PO (13:03)
[2019-11-07 16:01] LABS: Basophils Absolute Auto 0.1 K/mm3 (0.0-0.1); Basophils Percent Auto 1.4 % (0.2-1.2); Eosinophils Absolute Auto 0.7 K/mm3 (0-0.3); Eosinophils Percent Auto 8.8 % (0-4.4); Hematocrit 25.8 % (42.0-52.0); Hemoglobin 8.4 g/dL (14.0-18.0); Immature Granulocyte Absolute 0.15 K/mm3 (0.00-0.031); Lymphocytes Absolute Auto 0.54 K/mm3 (0.9-3.2); Lymphocytes Percent Auto 7.3 % (18.3-44.2); Mean Corpuscular HGB Conc 32.6 g/dl (32-36); Mean Corpuscular Hemoglobin 29.7 pg (26-34); Mean Corpuscular Volume 91.2 fl (80-100); Mean Platelet Volume 8.7 fl (7.4-10.4); Monocytes Absolute Auto 0.9 K/mm3 (0.1-0.6); Monocytes Percent Auto 12.6 % (2.6-8.5); Neutrophils Percent Auto 67.9 % (45.5-73.1); Platelet Count Result 130 k/mm3 (150-375); Red Blood Count 2.83 M/mm3 (4.6-6.20); Red Cell Distribution Width 17.2 % (11.5-14.5); White Blood Count 7.4 K/mm3 (4.5-10.0)
[2019-11-07 16:14] LABS: Anion Gap 4 mmol/L (8-16); Blood Urea Nitrogen 15 mg/dL (9-20); Calcium 7.5 mg/dL (8.4-10.2); Carbon Dioxide 30 mmol/L (22-30); Chloride 99 mmol/L (98-107); Estimated CRCL calculation 28 ml/min; Estimated Glomerular Filt Rate 27; Glucose 75 mg/dL (75-110); Potassium 3.7 mmol/L (3.4-5.0); Sodium 133 mmol/L (137-145)
--- NOTE | 2019-11-07 17:35 | PC.NURSE ---
Patient still drinking Gatorade with miralax. This RN encourages patient to continue drinking. Patient states that he can not drink it any faster. This RN has educated [patient on the need to finish it for his bowel prep for his colonoscopy tomorrow. Patient verbalizes understanding.
--- NOTE | 2019-11-07 20:24 | PCRCNOTE ---
pt refused bipap does not wear at home on room air 95%
[2019-11-08] VITALS (8 sets, daily range): BP systolic 74–159; BP diastolic 36–57; PULSE 56–64; RESP 15–24; TEMP 36.2–36.4; O2SAT 94–100; BMI 25.2
[2019-11-08 05:48] LABS: Basophils Absolute Auto 0.1 K/mm3 (0.0-0.1); Basophils Percent Auto 1.1 % (0.2-1.2); Eosinophils Absolute Auto 0.7 K/mm3 (0-0.3); Eosinophils Percent Auto 9.5 % (0-4.4); Hematocrit 26.5 % (42.0-52.0); Hemoglobin 8.6 g/dL (14.0-18.0); Immature Granulocyte Absolute 0.14 K/mm3 (0.00-0.031); Lymphocytes Absolute Auto 0.51 K/mm3 (0.9-3.2); Lymphocytes Percent Auto 7.1 % (18.3-44.2); Mean Corpuscular HGB Conc 32.5 g/dl (32-36); Mean Corpuscular Hemoglobin 29.5 pg (26-34); Mean Corpuscular Volume 90.8 fl (80-100); Mean Platelet Volume 8.8 fl (7.4-10.4); Monocytes Absolute Auto 0.8 K/mm3 (0.1-0.6); Monocytes Percent Auto 11.5 % (2.6-8.5); Neutrophils Absolute Auto 4.9 K/mm3 (1.3-6.7); Neutrophils Percent Auto 68.8 % (45.5-73.1); Platelet Count Result 144 k/mm3 (150-375); Red Blood Count 2.92 M/mm3 (4.6-6.20); Red Cell Distribution Width 16.6 % (11.5-14.5); White Blood Count 7.2 K/mm3 (4.5-10.0)
[2019-11-08 05:54] LABS: Alanine Aminotransferase 13 U/L (4-50); Albumin Level 2.2 g/dL (3.5-5.1); Alkaline Phosphatase 138 U/L (38-126); Anion Gap 5 mmol/L (8-16); Aspartate Amino Transferase 20 U/L (17-59); Bilirubin,Total 0.4 mg/dL (0.2-1.3); Blood Urea Nitrogen 15 mg/dL (9-20); Calcium 7.7 mg/dL (8.4-10.2); Carbon Dioxide 28 mmol/L (22-30); Chloride 98 mmol/L (98-107); Estimated CRCL calculation 24 ml/min; Estimated Glomerular Filt Rate 22; Glucose 99 mg/dL (75-110); Potassium 3.6 mmol/L (3.4-5.0); Sodium 131 mmol/L (137-145)
--- NOTE | 2019-11-08 07:07 | WPDGICN ---
Assessment and Plan Assessment and plan (1) Occult blood in stools: Code(s): R19.5 - Other fecal abnormalities Status: Acute Assessment and Plan: Patient noted to have occult blood in stool. On recent hospital stay had bright red blood per rectum. Plan is to proceed with colonoscopy to exclude lower GI source of bleeding contributing to chronic anemia. Anticipate performing this today if at all possible. (2) Anemia: Code(s): D64.9 - Anemia, unspecified Status: Acute Assessment and Plan: Patient has chronic anemia attributed to end-stage renal disease. Because of occult blood in stool in recent bright red blood per rectum plan is to proceed with colonoscopy to exclude a lower GI contributing cause. Colonoscopy within the last several years of [facility] was reported to be unremarkable. (3) End-stage renal disease on hemodialysis: Code(s): N18.6 - End stage renal disease; Z99.2 - Dependence on renal dialysis Status: Acute (4) Chronic diastolic congestive heart failure: Code(s): I50.32 - Chronic diastolic (congestive) heart failure Status: Acute (5) Paroxysmal atrial fibrillation: Code(s): I48.0 - Paroxysmal atrial fibrillation Status: Acute (6) Cirrhosis of liver with ascites: Qualifiers: Hepatic cirrhosis type: unspecified hepatic cirrhosis Qualified Code(s): K74.60 - Unspecified cirrhosis of liver; R18.8 - Other ascites Code(s): K74.60 - Unspecified cirrhosis of liver; R18.8 - Other ascites Status: Chronic Assessment and Plan: Continue diuresis with low-salt diet is advised. Hopefully ascites will continue to improve with dialysis. As well. Cirrhosis attributed to fatty liver. BURROWS. Continued control of diabetes and weight control is strongly encourage. GI Consult Note Consult date/time: 11/08/19 07:07 HPI: Naldo Lowry is a 69 year old male Seen in evaluation at the request of the hospitalist service. Patient presents for evaluation of chronic anemia. Patient has a history of end-stage renal disease. Has been chronically anemic. During his most recent hospital stay an EGD was unremarkable but colonoscopy unable to be performed. He has noticed occasional bright red blood per rectum attributed to hemorrhoids. In the emergency room this admission he was identified as having Hemoccult-positive stools. patient is chronically anemic and is on Epogen given via the renal service. His past medical history is significant for cirrhosis of the liver. This been attributed to BURROWS. He also has a history of atherosclerotic heart disease status post CABG in 2007. He has been treated for paroxysmal atrial fibrillation. Patient has had multiple GI endoscopies most recently a [facility] 2018 apparently reported to be without an obvious cause for bleeding. Family history is noncontributory. Review of Systems Review of Systems: All systems reviewed & are unremarkable except as noted in HPI and below PMFSH Past Medical History Medical History Chronic anemia Chronic diastolic congestive heart failure Echocardiogram in September 2019 showed normal left ventricular size and function with an ejection fraction estimated at 60 to 65% with abnormal diastolic function, moderate biatrial enlargement, mild aortic valve sclerosis, moderate aortic valve regurgitation, and trace mitral and tricuspid valve regurgitation. Chronic obstructive pulmonary disease Cirrhosis of liver with ascites Attributed to BURROWS however he has never had a liver biopsy. Coronary artery disease Status post 7 vessel CABG in 2007. No definite infarct or ischemia on nuclear stress test in September 2019. Diet-controlled type 2 diabetes mellitus End-stage renal disease on hemodialysis On dialysis Friday, , Friday. Gastroesophageal reflux disease GI bleed March 2014, November 2017, and more recentl
[2019-11-08] MEDS: BUMETANIDE 1 MG TABLET 2 MG PO (08:11)
[2019-11-08] MEDS: calcitrioL 0.25 MCG CAPSULE PO (08:11)
[2019-11-08] MEDS: PANTOPRAZOLE SODIUM IV 40 MG VIAL IV PUSH (08:11)
[2019-11-08] MEDS: hydrALAZINE HCL 50 MG TABLET PO ×3 (08:11→16:55)
[2019-11-08] MEDS: EUCERIN CREAM 120 GM JAR 1 APPLIC TOPICAL (08:12)
--- NOTE | 2019-11-08 10:06 | PC.NURSE ---
Patient to GI lab per stretcher.
--- NOTE | 2019-11-08 10:18 | WPDANESEPPF ---
Anes - Initial Pre Proc Eval Procedure: Operation Date: 11/08/19 11:00 Proposed Procedures p Colonoscopy - Cb Hull MD Date/Time: 11/08/19 10:18 Surgeon: Cristy Porter PA-C Pre Op Diagnosis: Low hemoglobin. Patient Data Age: 69 Gender: M Height: 5 ft 11 in Weight: 82.1 kg Last Vital Signs Temp 97.6 F 11/08/19 06:00 Pulse 61 11/08/19 06:00 Resp 16 11/08/19 06:00 BP 146/45 H 11/08/19 06:00 Pulse Ox 99 11/08/19 06:00 Allergies Allergy/AdvReac Type Severity Reaction Status Date / Time codeine Allergy Unknown RASH/BLISTE Verified 11/06/19 10:18 RS Home Medications Medication Instructions Recorded Confirmed Type albuterol sulfate 90 mcg/actuation 1 puff INHALATION Q4H PRN 05/24/19 11/06/19 History aerosol inhaler aspirin 81 mg chewable tablet 81 mg PO DAILY 05/24/19 11/06/19 History hydralazine 50 mg tablet 50 mg PO TID 05/24/19 11/06/19 History bumetanide 2 mg PO DAILY 09/06/19 11/06/19 History calcitriol 0.25 mcg PO DAILY 09/06/19 11/06/19 History meclizine 12.5 mg PO QID #30 tablet 10/14/19 11/06/19 Rx Laboratory Tests 11/07/19 11/07/19 11/08/19 15:54 15:55 05:28 WBC 7.4 K/mm3 K/mm3 (4.5-10.0) RBC 2.83 M/mm3 L M/mm3 (4.6-6.20) Hgb 8.4 g/dL L g/dL (14.0-18.0) Hct 25.8 % L % (42.0-52.0) MCV 91.2 fl fl (80-100) MCH 29.7 pg pg (26-34) MCHC 32.6 g/dl g/dl (32-36) RDW 17.2 % H % (11.5-14.5) Plt Count 130 k/mm3 L k/mm3 (150-375) MPV 8.7 fl fl (7.4-10.4) Immature Gran % (Auto) 2.0 % H % (0-0.5) Neut % (Auto) 67.9 % % (45.5-73.1) Lymph % (Auto) 7.3 % L % (18.3-44.2) [place] % (Auto) 12.6 % H % (2.6-8.5) Eos % (Auto) 8.8 % H % (0-4.4) Baso % (Auto) 1.4 % H % (0.2-1.2) Lymph # (Auto) 0.54 K/mm3 L K/mm3 (0.9-3.2) [place] # (Auto) 0.9 K/mm3 H K/mm3 (0.1-0.6) Eos # (Auto) 0.7 K/mm3 H K/mm3 (0-0.3) Baso # (Auto) 0.1 K/mm3 K/mm3 (0.0-0.1) Abs Immat Gran (auto) 0.15 K/mm3 H K/mm3 (0.00-0.031) Absolute Neuts (auto) 5.0 K/mm3 K/mm3 (1.3-6.7) Absolute Nucleated RBC 0.0 K/mm3 K/mm3 (0.0-0.012) Nucleated RBC % 0.0 % % (0.0-0.2) Sodium 133 mmol/L L mmol/L 131 mmol/L L mmol/L (137-145) (137-145) Potassium 3.7 mmol/L mmol/L 3.6 mmol/L mmol/L (3.4-5.0) (3.4-5.0) Chloride 99 mmol/L mmol/L 98 mmol/L mmol/L (98-107) (98-107) Carbon Dioxide 30 mmol/L mmol/L 28 mmol/L mmol/L (22-30) (22-30) Anion Gap 4 mmol/L L mmol/L 5 mmol/L L mmol/L (8-16) (8-16) BUN 15 mg/dL D mg/dL 15 mg/dL mg/dL (9-20) (9-20) Creatinine 2.40 mg/dL H mg/dL 2.80 mg/dL H mg/dL (0.7-1.3) (0.7-1.3) Estim Creat Clear Calc 28 ml/min ml/min 24 ml/min ml/min Estimated GFR 27 L 22 L (59 - ) (59 - ) Glucose 75 mg/dL mg/dL 99 mg/dL mg/dL (75-110) (75-110) Calcium 7.5 mg/dL L mg/dL 7.7 mg/dL L mg/dL (8.4-10.2) (8.4-10.2) Total Bilirubin 0.4 mg/dL mg/dL (0.2-1.3) AST 20 U/L U/L (17-59) ALT 13 U/L U/L (4-50) Alkaline Phosphatase 138 U/L H U/L (38-126) Total Protein 4.0 g/dL L g/dL (6.3-8.2) Albumin 2.2 g/dL L g/dL (3.5-5.1) 11/08/19 05:29 WBC 7.2 K/mm3 K/mm3 (4.5-10.0) RBC 2.92 M/mm3 L M/mm3 (4.6-6.20) Hgb 8.6 g/dL L g/dL (14.0-18.0) Hct 26.5 % L % (42.0-52.0) MCV 90.8 fl fl (80-100) MCH 29.5 pg pg (26-34) MCHC 32.5 g/dl g/dl (32-36) RDW 16.6 % H % (11.5-14.5) Plt Count 144 k/mm3 L k/mm3 (150-375) MPV 8.8 fl fl (7.4-10.4) Immature Gran % (Auto) 2.0 % H % (0-0.5) Neut % (Auto) 68.8 % % (45.5-73.1) Lymph % (Auto) 7.1 % L % (18.3-44.2) [place] % (Auto) 11.5 % H % (2.6-8.5) Eos
[2019-11-08] MEDS: SODIUM CHLORIDE 0.9% IV 500 ML IV CONT (10:29)
--- NOTE | 2019-11-08 11:09 | SUR.OPER ---
NOTED BRUISING TO THE RIGHT BUTT CHEEK AND BANDAGE TO COCCYX ON ARRIVAL TO THE ENDOSCOPY EXAM ROOM.
[2019-11-08 13:07] LABS: Hemoglobin 9.4 g/dL (14.0-18.0)
--- NOTE | 2019-11-08 13:30 | PM.IMPN ---
Progress Note: A&P Assessment and Plan (1) Profound anemia: Code(s): D64.9 - Anemia, unspecified Status: Acute Assessment and Plan: Hemoglobin continues to fall despite increasing Epogen with dialysis. As of 11/04/2019, he was receiving 100 mg of IV Venofer and 10,000 units of Epogen with each treatment for a total of 10 treatments. He was transfused 2 units pRBC on 11/06/2019. There was concerns for occult GI blood loss. He underwent colonoscopy by Dr. Hull today which showed internal hemorrhoids but no obvious etiology for his chronic anemia. Monitor H&H closely. Transfuse as needed. Consult has been placed to hematology Dr. Aguirre for further evaluation. Appreciate recommendations. (2) End-stage renal disease on hemodialysis: Code(s): N18.6 - End stage renal disease; Z99.2 - Dependence on renal dialysis Status: Acute Assessment and Plan: He receives dialysis on Friday, , and Friday. Last dialysis was 11/05. Dr. Piper consulted for dialysis. If he remains inpatient, he will need dialysis tomorrow. Monitor electrolytes. (3) Chronic diastolic congestive heart failure: Code(s): I50.32 - Chronic diastolic (congestive) heart failure Status: Acute Assessment and Plan: He is quite edematous in the lower limbs, which he states is chronic. Lower extremity edema is improved from my last evaluation of this patient in August 2019. Monitor volume status closely. Monitor I&O. (4) Cirrhosis of liver with ascites: Qualifiers: Hepatic cirrhosis type: unspecified hepatic cirrhosis Qualified Code(s): K74.60 - Unspecified cirrhosis of liver; R18.8 - Other ascites Code(s): K74.60 - Unspecified cirrhosis of liver; R18.8 - Other ascites Status: Chronic Assessment and Plan: He does not appear to have massive ascites at this time. Continue Bumex. (5) Hypertension: Code(s): I10 - Essential (primary) hypertension Status: Acute Assessment and Plan: Blood pressures reviewed today and are stable. Continue antihypertensives and monitor closely (6) Obstructive sleep apnea on CPAP: Code(s): G47.33 - Obstructive sleep apnea (adult) (pediatric); Z99.89 - Dependence on other enabling machines and devices Status: Acute Assessment and Plan: CPAP will be provided for him while hospitalized. Additional Plan High-fiber diet recommended by Dr. Hull based on internal hemorrhoids. Subjective Date/time seen: 11/08/19 13:30 Interval history: Date of service: 11/07/2019 Patient is a 69-year-old male with history of ESRD on HD, DIMITRIS, AFib, and liver cirrhosis known to me from prior hospitalization in August 2019 who is here for profound anemia despite increased Epogen with HD. he has just returned from colonoscopy and tolerated the procedure well. He has no complaints at this time. He is hungry and is ready to eat lunch. He denies abdominal pain, nausea, vomiting, fever, chills, dizziness, lightheadedness, shortness of breath, palpitations, chest pain, or cough. His lower extremity edema remains the same. He denies any episodes of bleeding. He tells me he is rather tired today and needs to rest. Review of Systems Review of Systems: Narrative: A 12 point review of systems was reviewed with pertinent positives and negatives as per HPI. Exam Narrative: Exam Narrative: Mr. Lowry is a well-nourished 69-year-old male who is lying supine in bed. He appears comfortable and is in no acute respiratory distress. HR is a 61, BP 115/45, R 16, T 97.6?, 99% on room Neuro: awake, alert and oriented x4, speech clear, no focal neuro deficits noted HEENMT: normocephalic, atraumatic, EOMI, sclerae anicteric, moist oral mucosa, tongue midline Neck: supple, no lymphadenopathy Respiratory: clear to auscultation bilaterally, nonlabored breathing Cardio: regular rate, regular rhythm
--- NOTE | 2019-11-08 14:32 | PCNSR ---
On 11/08/19, the student, [address], provided care and completed [facility] documentation on this patient. I have reviewed the student's documentation and agree with the findings.
--- NOTE | 2019-11-08 15:15 | PCRCNOTE ---
PATIENT REPORTS HE DOES NOT COMPLY WITH WEARING CPAP AT HOME AND DOES NOT WISH TO HAVE ONE HERE IN THE HOSPITAL.
--- NOTE | 2019-11-08 16:45 | PM.PNNEP ---
Progress Note: A&P Assessment and Plan (1) End-stage renal disease on hemodialysis: Code(s): N18.6 - End stage renal disease; Z99.2 - Dependence on renal dialysis Status: Chronic Assessment and Plan: HD tomorrow and continue T/T/S schedule while hospitalized follow electroltyes,volume status, and clearance (2) Profound anemia: Code(s): D64.9 - Anemia, unspecified Status: Acute Assessment and Plan: s/p PRBC transfusion appropriate incrementation noted GI following Some other explanation?? -- Hem/Onc consulted for further evaluation (3) Chronic diastolic (congestive) heart failure: Code(s): I50.32 - Chronic diastolic (congestive) heart failure Status: Chronic Assessment and Plan: appears stable continue to push fluid removal with HD (4) Hypertension: Code(s): I10 - Essential (primary) hypertension Status: Chronic Assessment and Plan: reasonable control at this time follow trend of hemodyanmics (5) Cirrhosis of liver with ascites: Qualifiers: Hepatic cirrhosis type: unspecified hepatic cirrhosis Qualified Code(s): K74.60 - Unspecified cirrhosis of liver; R18.8 - Other ascites Code(s): K74.60 - Unspecified cirrhosis of liver; R18.8 - Other ascites Status: Chronic Assessment and Plan: no change limiting paracenteses due to low albumin Will continue to follow. Subjective Date/time seen: 11/08/19 16:45 S/P colonoscopy with results as noted; tolerated PRBC transfusion since admission as well; no apparent distress voiced; feels reasonably well. Exam Narrative: Exam Narrative: General: WD/WN male in NAD Heart: normal S1 and S2; no rub Lungs: clear to auscultation Abdomen: soft, nontender, mild/modert , positive bowel sounds Extremities: no cyanosis or clubbing; 1 - 2+ chronic edema Skin: warm and dry Objective Data Vital Signs Vital Signs: Vital Signs Temp Pulse Resp BP Pulse Ox 11/08/19 11:57 63 24 H 117/43 L 96 11/08/19 11:47 62 23 H 115/45 L 96 11/08/19 11:37 58 L 15 107/40 L 100 11/08/19 11:27 56 L 16 74/36 L 99 11/08/19 10:35 36.4 C 62 16 142/57 H 94 08/24/20 06:00 36.4 C 61 16 146/45 H 99 11/07/19 22:00 36.4 C 67 16 114/52 L 100 Intake/Output Intake/Output: Intake & Output 11/05/19 11/06/19 11/07/19 11/08/19 23:59 23:59 23:59 23:59 Intake Total 1280 1970 1170 Output Total 200 635 250 Balance 1080 1335 920 Meds/Results Medications: Active Medications Generic Name Dose Route Start Last Admin Trade Name Freq PRN Reason Stop Dose Admin Albuterol 1 puff 11/06/19 18:04 Proventil Hfa INHALATION Q4HRT PRN Shortness Of Breath Bumetanide 2 mg 11/07/19 09:00 11/08/19 08:11 Bumex Po PO 2 mg DAILY NOÉ Administration Calcitriol 0.25 mcg 11/07/19 09:00 11/08/19 08:11 Rocaltrol PO 0.25 mcg DAILY NOÉ Administration Hydralazine HCl 50 mg 11/07/19 09:00 11/08/19 12:59 Apresoline Tablet PO 50 mg TID NOÉ Administration Albumin Human 50 mls @ 999 mls/hr 11/06/19 12:33 Albutein IVPB 12/06/19 12:34 Q10M PRN HYPOTENSION Meclizine HCl 12.5 mg 11/07/19 00:16 Antivert PO QID PRN Dizziness Multi-Ingred Cream/Lotion/Oil/Oint 1 applic 11/07/19 09:00 11/08/19 08:12 Minerin Creme TOPICAL 1 applic QAM NOÉ Administration Ondansetron HCl 4 mg 11/06/19 13:22 Zofran Inj IV PUSH Q4H PRN Nausea Radiology Results: ITS Impressions Venous Doppler Study 11/07/19 13:57 IMPRESSION: 1. Patent bilateral lower extremity veins. No evidence of deep venous thrombosis. Labs Labs: Laboratory Tests 11/08/19 12:59 11/08/19 05:28
[2019-11-08 17:54] LABS: Hematocrit 26.1 % (42.0-52.0); Hemoglobin 8.5 g/dL (14.0-18.0)
[2019-11-08 17:59] LABS: Immature Reticulocyte Fraction 24.3 % (3.0-15.9); Reticulocyte Hemoglobin Conten 31.8 pg (28.2-35.7); Reticulocytes Absolute 0.11 B/L (32.2-175.7)
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
[2019-11-08 18:27] LABS: Lactate Dehydrogenase 420 U/L (313-618)
[2019-11-08 18:35] LABS: Iron 31 ug/dL (49-181)
[2019-11-08 18:44] LABS: Percent Iron Saturation 17 % (20-50)
[2019-11-08 19:34] LABS: Folic Acid 8.8 ng/mL (2.76->20)
--- NOTE | 2019-11-08 22:37 | PM.DS ---
DS: Admitting Diagnosis Admitting Diagnosis Admitting Diagnosis: Low hemoglobin. DS: Discharge Diagnosis Discharge Diagnosis (1) Profound anemia: Code(s): D64.9 - Anemia, unspecified Status: Acute Assessment and Plan: Hemoglobin was decreasing despite increased Epogen administered with dialysis. As of 11/04/2019, he was receiving 100 mg of IV Venofer and 10,000 units of Epogen with each treatment for a total of 10 treatments. He was transfused 2 units pRBC on 11/06/2019. He underwent colonoscopy by Dr. Hull on 11/08/19 which showed internal hemorrhoids but no obvious etiology for his chronic anemia. As there was no GI etiology for his anemia, he was seen in consultation by hematology and recommended continued Epogen. Lab studies were ordered and he will follow up with Dr. Aguirre for results as an outpatient and possible bone marrow biopsy dependent on results. H&H remained stable and he will repeat H&H in 1 week. (2) End-stage renal disease on hemodialysis: Code(s): N18.6 - End stage renal disease; Z99.2 - Dependence on renal dialysis Status: Chronic Assessment and Plan: He receives dialysis on Friday, , and Friday. Last dialysis was 11/05. Seen in consultation by nephrology for dialysis. Next dialysis 11/09/19. (3) Chronic diastolic congestive heart failure: Code(s): I50.32 - Chronic diastolic (congestive) heart failure Status: Acute Assessment and Plan: He is quite edematous in the lower limbs, which he states is chronic. Volume status monitored closely. Continue bumex. (4) Cirrhosis of liver with ascites: Qualifiers: Hepatic cirrhosis type: unspecified hepatic cirrhosis Qualified Code(s): K74.60 - Unspecified cirrhosis of liver; R18.8 - Other ascites Code(s): K74.60 - Unspecified cirrhosis of liver; R18.8 - Other ascites Status: Chronic Assessment and Plan: He did not appear to have ascites. Continue Bumex. (5) Hypertension: Code(s): I10 - Essential (primary) hypertension Status: Chronic Assessment and Plan: Blood pressures reviewed and remained stable. Continue bumex and hydralazine. (6) Obstructive sleep apnea on CPAP: Code(s): G47.33 - Obstructive sleep apnea (adult) (pediatric); Z99.89 - Dependence on other enabling machines and devices Status: Acute Assessment and Plan: CPAP was provided for him while hospitalized. DS: Summary Hospital Course Reason for hospitalization: Anemia Hospital Course: Date of admission: 11/06/2019 Date of discharge: 11/08/2019 Naldo Lowry is a 69-year-old male with history of chronic anemia requiring multiple blood transfusions, coronary artery disease status post CABG in 2007, end-stage renal disease on hemodialysis since September 2019, paroxysmal atrial fibrillation status post left atrial appendage closure, diastolic congestive heart failure, pulmonary hypertension, COPD, DIMITRIS, cirrhosis of the liver, and diet-controlled type 2 diabetes mellitus who presented to the emergency department on 11/05 at the instruction of Dr. Piper for further treatment and evaluation of a low hemoglobin level noted on labs drawn this morning prior to dialysis. He had been receiving Epogen with dialysis but hemoglobin had continued to decline. He recently had EGD and colonoscopy in September 2019 which did not demonstrate a source of bleeding. At presentation, vital signs stable, hgb 5.8 and Hct 18.3. He was admitted to the hospitalist service for further evaluation and treatment. He was seen in consultation by GI and hematology. Please see above for further details. Hemoglobin and hematocrit stabilized following blood transfusion. He will follow up with hematology and continue Epogen with dialysis. We discussed worrisome signs and symptoms for which to return and he was educated on his medications and need for follow up. He was discharged in hemodynamically stable condi
[2019-11-13 20:51] LABS: Erythropoietin (EPO) 25.6 mIU/mL (2.6-18.5)
[2019-11-15 14:05] LABS: Soluble Transferrin Receptor 1.05 mg/L (0.76-1.76)
== END 2019-11-08 20:30 | disposition home health service (06) | DRG 683 ==
LOC: ANHED 12:43 → ANH2MED 13:34
PROVIDERS: Emergency Medicine Emergency Medical Services; Internal Medicine Gastroenterology; Internal Medicine Hematology & Oncology; Internal Medicine Nephrology; Physician Assistant; Admitting Provider Internal Medicine; Emergency Provider Emergency Medicine; PCP Family Medicine; Visit Provider Physician Assistant
PROC: 0DJD8ZZ Inspection of Lower Intestinal Tract, Via Natural or Artificial Opening Endoscopic (ICD-10-PCS; CPT 45378; principal; 2019-11-08 11:00)
DX: N18.6 End stage renal disease (principal); I13.2 Hypertensive heart and chronic kidney disease with heart failure and with stage 5 chronic kidney disease, or end stage renal disease; I50.32 Chronic diastolic (congestive) heart failure; D63.1 Anemia in chronic kidney disease; G47.33 Obstructive sleep apnea (adult) (pediatric); I48.91 Unspecified atrial fibrillation; K74.60 Unspecified cirrhosis of liver; I73.9 Peripheral vascular disease, unspecified; J44.9 Chronic obstructive pulmonary disease, unspecified; K63.5 Polyp of colon; K64.8 Other hemorrhoids
CPT/HCPCS: 36415; 36430; 80048; 80053; 82607; 82668; 82728; 82746; 83540; 83550; 83615; 84238; 85014; 85018; 85025; 85046; 85610; 85730; 86706; 86850; 86900; 86901; 86923; 87340; 88305; 93005; 93970; 96360; 96361; 99285; A9270; C9113; J2704; J7040; J7050; P9016; Q5106

== ENCOUNTER 2020-09-09 12:03 | Emergency (ER) | payer MEDICARE, SELFPAY ==
--- NOTE | ~2020-09-09 | XR_ITS ---
EXAMINATION: XR wrist RT min 3V DATE: 09/09/2020 14:52 INDICATION: Right wrist pain. TECHNIQUE: 4 views of right wrist were obtained. COMPARISON: None. FINDINGS: There is a comminuted fracture of distal ulnar diaphysis. The main distal fracture fragment demonstrates impaction and 3 mm palmar displacement and 1 mm ulnar displacement. Osteopenia is noted . There is severe radiolunate joint osteoarthritis. There is mild osteoarthritis of triscaphe joint a nd severe osteoarthritis of first carpometacarpal joint. There are extensive vascular calcifications. IMPRESSION: 1. Comminuted fracture of distal ulnar diaphysis. 2. Polyarticular osteoarthritis. Reviewed, dictated and finalized at location A.
--- NOTE | ~2020-09-09 | XR_ITS ---
EXAMINATION: XR ribs RT 2V DATE: 09/09/2020 14:52 INDICATION: Right chest pain. TECHNIQUE: 3 views of the right ribs were obtained. COMPARISON: Chest single view 10/08/2019 FINDINGS: There is chronic elevation of right hemidiaphragm. There is mild atelectasis at right lung base. Median sternotomy wires are noted. There is a closure device in left atrial appendage. There ar e fractures of right seventh, eighth, and ninth ribs. Surgical clips in the right upper quadrant are likely from cholecystectomy. IMPRESSION: 1. Acute fractures of right seventh-ninth ribs. Reviewed, dictated and finalized at location A.
[2020-09-09 12:23] VITALS: BP 93/47; PULSE 58; RESP 16; TEMP 36.9; O2SAT 100
--- NOTE | 2020-09-09 12:26 | ECG_ITS ---
Measurements Intervals [place] Rate: 57 P: NE: 0 QRS: -58 QRSD: 121 T: 121 QT: 474 QTc: 463 Interpretive Statements JUNCTIONAL RHYTHM LEFT BUNDLE BRANCH BLOCK BORDERLINE ECG Electronically Signed On 09-09-2020 19:28:15 CDT by Peter Pollack D.O.
[2020-09-09 12:39] LABS: Basophils Absolute Auto 0.1 K/mm3 (0.0-0.1); Basophils Percent Auto 1.1 % (0.2-1.2); Eosinophils Absolute Auto 0.5 K/mm3 (0-0.3); Eosinophils Percent Auto 5.9 % (0-4.4); Hematocrit 30.2 % (42.0-52.0); Hemoglobin 10.2 g/dL (14.0-18.0); Immature Granulocyte Absolute 0.22 K/mm3 (0.00-0.031); Immature Granulocyte Percent A 2.4 % (0-0.5); Lymphocytes Percent Auto 8.7 % (18.3-44.2); Mean Corpuscular HGB Conc 33.8 g/dl (32-36); Mean Corpuscular Hemoglobin 30.3 pg (26-34); Mean Corpuscular Volume 89.6 fl (80-100); Mean Platelet Volume 8.8 fl (7.4-10.4); Monocytes Absolute Auto 1.2 K/mm3 (0.1-0.6); Monocytes Percent Auto 12.9 % (2.6-8.5); Neutrophils Absolute Auto 6.4 K/mm3 (1.3-6.7); Platelet Count Result 151 k/mm3 (150-375); Red Blood Count 3.37 M/mm3 (4.6-6.20); Red Cell Distribution Width 15.3 % (11.5-14.5); White Blood Count 9.2 K/mm3 (4.5-10.0)
[2020-09-09 12:49] LABS: Alanine Aminotransferase 11 U/L (4-50); Albumin Level 2.1 g/dL (3.5-5.1); Alkaline Phosphatase 185 U/L (38-126); Anion Gap 10 mmol/L (8-16); Aspartate Amino Transferase 20 U/L (17-59); Bilirubin,Total 0.4 mg/dL (0.2-1.3); Blood Urea Nitrogen 26 mg/dL (9-20); Calcium 7.8 mg/dL (8.4-10.2); Carbon Dioxide 24 mmol/L (22-30); Chloride 94 mmol/L (98-107); Estimated CRCL calculation 11 ml/min; Estimated Glomerular Filt Rate 10; Glucose 153 mg/dL (75-110); Potassium 3.2 mmol/L (3.4-5.0); Sodium 128 mmol/L (137-145)
--- NOTE | 2020-09-09 14:00 | ED.GENADULT ---
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 Patient is asymptomatic. Patient denies any fever, chills, nausea, vomiting, chest pain, shortness of breath, headache, abdominal pain. Last peritoneal dialysis was overnight. The dialysis nurse visit him once a month, last visit with 2 days ago. Patient lives alone. Full code. Related Data Home Medications Medication Instructions Recorded Confirmed albuterol sulfate 90 mcg/actuation 1 puff INHALATION Q4H PRN 05/24/19 11/06/19 aerosol inhaler aspirin 81 mg chewable tablet 81 mg PO DAILY 05/24/19 11/06/19 hydralazine 50 mg tablet 50 mg PO TID 05/24/19 11/06/19 bumetanide 2 mg PO DAILY 09/06/19 11/06/19 calcitriol 0.25 mcg PO DAILY 09/06/19 11/06/19 Allergies Allergy/AdvReac Type Severity Reaction Status Date / Time codeine Allergy Unknown RASH/BLISTE Verified 11/06/19 10:18 RS Review of Systems Review of Systems: Narrative: CONSTITUTIONAL: Denies fever, chills, or sweats. EYES: Denies visual changes, redness, or discharge. ENT: Denies rhinorrhea, congestion, sore throat, or otalgia. CARDIOVASCULAR: Denies chest pain, palpitations, or edema. RESPIRATORY: Denies cough or dyspnea. GASTROINTESTINAL: Denies abdominal pain, nausea, vomiting, or diarrhea. GENITOURINARY: Denies dysuria or hematuria. SKIN: Denies rash or itching. MUSCULOSKELETAL: Denies back pain, joint pain, or myalgia. NEUROLOGIC: Denies headache, numbness, or weakness. PSYCHIATRIC: Denies anxiety or depression. [facility] Past Medical History Medical History (Updated 09/09/20 @ 15:26 by Patrica Roberts MD) Chronic anemia Chronic diastolic congestive heart failure Echocardiogram in September 2019 showed normal left ventricular size and function with an ejection fraction estimated at 60 to 65% with abnormal diastolic function, moderate biatrial enlargement, mild aortic valve sclerosis, moderate aortic valve regurgitation, and trace mitral and tricuspid valve regurgitation. Chronic obstructive pulmonary disease Cirrhosis of liver with ascites Attributed to BURROWS however he has never had a liver biopsy. Coronary artery disease Status post 7 vessel CABG in 2007. No definite infarct or ischemia on nuclear stress test in September 2019. Diet-controlled type 2 diabetes mellitus End-stage renal disease on hemodialysis On dialysis Friday, , Friday. Gastroesophageal reflux disease GI bleed March 2014, November 2017, and more recently suspected occult GI loss in September 2019. Hyperlipidemia Hypertension Left bundle branch block Obstructive sleep apnea on CPAP Paroxysmal atrial fibrillation not on long-term anticoagulation given history of GI bleed. Status post watchman left atrial appendage closure device insertion. Peripheral arterial disease Status post abdominal aortic aneurysm repair. Presence of Watchman left atrial appendage closure device Pulmonary hypertension Moderate pulmonary hypertension with an estimated pulmonary arterial systolic pressure of 50 mmHg on echocardiogram in September 2019. Ureterolithiasis (~09/2019) Surgical History Surgical History History of coronary artery bypass graft (~2007) [address] [facility]. History of cystoscopy (~09/2019) With left ureteral stent and subsequent removal. History of penile implant History of squamous cell carcinoma excision (~11/2018) Excised from the left upper extremity. History of tonsillectomy History of ventral hernia repair (~09/2018) Family History Family History
[2020-09-09] MEDS: POTASSIUM CHLORIDE 20 MEQ PACKET (FOR LIQUID) 40 MEQ PO (14:26)
[2020-09-09 14:28] VITALS: BP 101/68; PULSE 51; RESP 18; O2SAT 100
== END 2020-09-09 15:53 | disposition home or self-care (01) ==
PROVIDERS: Emergency Provider Emergency Medicine; PCP Family Medicine
DX: S52.25 Comminuted fracture of shaft of ulna (principal); S22.41XA Multiple fractures of ribs, right side, initial encounter for closed fracture; R00.1 Bradycardia, unspecified; M19.90 Unspecified osteoarthritis, unspecified site; Z87.891 Personal history of nicotine dependence; I13.2 Hypertensive heart and chronic kidney disease with heart failure and with stage 5 chronic kidney disease, or end stage renal disease; E11.22 Type 2 diabetes mellitus with diabetic chronic kidney disease; N18.6 End stage renal disease; I50.32 Chronic diastolic (congestive) heart failure; Z99.2 Dependence on renal dialysis; I48.91 Unspecified atrial fibrillation; K21.9 Gastro-esophageal reflux disease without esophagitis; K74.60 Unspecified cirrhosis of liver; I25.10 Atherosclerotic heart disease of native coronary artery without angina pectoris; X58.XXXA Exposure to other specified factors, initial encounter
CPT/HCPCS: 36415; 71100; 73110; 80053; 85025; 93005; 99284; A9270

== ENCOUNTER 2020-09-12 12:43 | Inpatient (IN) | payer MEDICARE, SELFPAY ==
--- NOTE | ~2020-09-12 | XR_ITS ---
EXAMINATION: XR fl guide central line place DATE: 09/13/2020 14:25 INDICATION: Central line placement. TECHNIQUE: A single intraoperative fluoroscopic view of the chest was obtained. I was not present. Fl uoroscopy exposure time was 38 seconds. COMPARISON: Chest single view 10/08/2019 FINDINGS: There is a right internal jugular central venous catheter with tip at superior cavoatrial j unction. Median sternotomy wires are noted. IMPRESSION: 1. Central line tip at superior cavoatrial junction. Reviewed, dictated and finalized at location A.
--- NOTE | ~2020-09-12 | XR_ITS ---
EXAMINATION: XR chest port-a-cath/central DATE: 09/13/2020 14:55 INDICATION: Central line placement. TECHNIQUE: A single frontal view of the chest was obtained. COMPARISON: Right rib radiograph 09/09/2020, CT abdomen and pelvis 09/05/2019 FINDINGS: There is chronic elevation of right hemidiaphragm. There are airspace opacities in the pavel hilar regions and right lower lung zone. No pleural effusion or pneumothorax. The heart size is camryn l. Median sternotomy wires are noted. There is a closure device in left atrial appendage. There is a right internal jugular central venous catheter with tip at superior cavoatrial junction. IMPRESSION: 1. Central line tip at superior cavoatrial junction. 2. Airspace opacities in the perihilar regions and right lower lung zone, consistent with atelectasis versus pneumonia. Reviewed, dictated and finalized at location A. IMPRESSION: 1. Central line tip at superior cavoatrial junction. 2. Airspace opacities in the perihilar regions and right lower lung zone, consi stent with atelectasis versus pneumonia.
[2020-09-12 12:46] VITALS: BP 108/50; BP 126/64; PULSE 64; PULSE 76; RESP 14; RESP 18; TEMP 35.6; TEMP 35.9; O2SAT 100
--- NOTE | 2020-09-12 12:46 | ECG_ITS ---
Measurements Intervals [place] Rate: 75 P: 250 ME: 155 QRS: -65 QRSD: 109 T: 104 QT: 411 QTc: 461 Interpretive Statements ACCELERATED JUNCTIONAL RHYTHM LOW QRS VOLTAGE IN PRECORDIAL LEADS INCOMPLETE LEFT BUNDLE BRANCH BLOCK CANNOT RULE OUT SEPTAL INFARCT, AGE INDETERMINATE BORDERLINE ST-T WAVE ABNORMALITY- HIGH LATERAL LEADS BASELINE WANDER- V4-V6 ABNORMAL ECG Electronically Signed On 09-12-2020 13:15:03 CDT by Peter Pollack D.O.
[2020-09-12 13:04] VITALS: BP 140/66; PULSE 76; RESP 15; O2SAT 100
[2020-09-12 13:07] LABS: Basophils Absolute Auto 0.1 K/mm3 (0.0-0.1); Basophils Percent Auto 0.8 % (0.2-1.2); Eosinophils Absolute Auto 0.5 K/mm3 (0-0.3); Eosinophils Percent Auto 5.7 % (0-4.4); Hematocrit 32.3 % (42.0-52.0); Hemoglobin 10.6 g/dL (14.0-18.0); Immature Granulocyte Absolute 0.17 K/mm3 (0.00-0.031); Immature Granulocyte Percent A 1.8 % (0-0.5); Lymphocytes Percent Auto 8.7 % (18.3-44.2); Mean Corpuscular HGB Conc 32.8 g/dl (32-36); Mean Corpuscular Hemoglobin 29.9 pg (26-34); Mean Corpuscular Volume 91.2 fl (80-100); Mean Platelet Volume 8.3 fl (7.4-10.4); Monocytes Absolute Auto 0.9 K/mm3 (0.1-0.6); Monocytes Percent Auto 9.6 % (2.6-8.5); Neutrophils Absolute Auto 6.8 K/mm3 (1.3-6.7); Neutrophils Percent Auto 73.4 % (45.5-73.1); Platelet Count Result 182 k/mm3 (150-375); Red Blood Count 3.54 M/mm3 (4.6-6.20); Red Cell Distribution Width 15.9 % (11.5-14.5); White Blood Count 9.2 K/mm3 (4.5-10.0)
[2020-09-12 13:14] LABS: Anion Gap 10 mmol/L (8-16); Blood Urea Nitrogen 27 mg/dL (9-20); Calcium 7.7 mg/dL (8.4-10.2); Carbon Dioxide 27 mmol/L (22-30); Chloride 94 mmol/L (98-107); Estimated CRCL calculation 11 ml/min; Estimated Glomerular Filt Rate 10; Glucose 202 mg/dL (75-110); Potassium 3.5 mmol/L (3.4-5.0); Sodium 131 mmol/L (137-145)
--- NOTE | 2020-09-12 13:21 | ED.GENADULT ---
HPI - General Adult General Chief complaint: Dizziness Stated complaint: Dizzy Time Seen by Provider: 09/12/20 13:01 History of Present Illness HPI narrative: Patient is a 70-year-old male who presents to the ER for admission to the hospital. Reports he was sent here because he is supposed to have a dialysis catheter placed tomorrow. Reports he was seen on 09/09 that apparently his doctor is upset he was not at that time. During that visit patient had been standing on a chair trying to close the ceiling vent with his cane when he fell off and fractured his arm and some ribs. Reports his pain is controlled and is not short of breath. Reports she has had episodes of syncope preceding that fall that there is apparently some concern for where his eyes go blurry before he passes out. Has not had this happen over the last couple days. No chest pain/chest pressure/nausea/vomiting. Patient did perform dialysis on himself last night. Related Data Home Medications Medication Instructions Recorded Confirmed albuterol sulfate 90 mcg/actuation 1 puff INHALATION Q4H PRN 05/24/19 11/06/19 aerosol inhaler aspirin 81 mg chewable tablet 81 mg PO DAILY 05/24/19 11/06/19 hydralazine 50 mg tablet 50 mg PO TID 05/24/19 11/06/19 bumetanide 2 mg PO DAILY 09/06/19 11/06/19 calcitriol 0.25 mcg PO DAILY 09/06/19 11/06/19 Allergies Allergy/AdvReac Type Severity Reaction Status Date / Time codeine Allergy Unknown RASH/BLISTE Verified 11/06/19 10:18 RS Review of Systems Review of Systems: All systems reviewed & are unremarkable except as noted in HPI and below Constitutional: Constitutional: Denies chills, Denies fever(s) and Denies weakness ENT: Denies nasal congestion and Denies sore throat Cardiovascular: Cardiovascular: Denies chest pain, Denies rapid heart rate and Denies radiating jaw, neck or arm pain Neurologic: Reports syncope, Denies headache(s), Denies focal weakness and Denies numbness [facility] Past Medical History Medical History (Updated 09/12/20 @ 16:06 by Jeremiah Noyola MD) Chronic anemia Chronic diastolic congestive heart failure Echocardiogram in September 2019 showed normal left ventricular size and function with an ejection fraction estimated at 60 to 65% with abnormal diastolic function, moderate biatrial enlargement, mild aortic valve sclerosis, moderate aortic valve regurgitation, and trace mitral and tricuspid valve regurgitation. Chronic obstructive pulmonary disease Cirrhosis of liver with ascites Attributed to BURROWS however he has never had a liver biopsy. Coronary artery disease Status post 7 vessel CABG in 2007. No definite infarct or ischemia on nuclear stress test in September 2019. Diet-controlled type 2 diabetes mellitus End-stage renal disease on hemodialysis On dialysis Friday, , Friday. Gastroesophageal reflux disease GI bleed March 2014, November 2017, and more recently suspected occult GI loss in September 2019. Hyperlipidemia Hypertension Left bundle branch block Obstructive sleep apnea on CPAP Paroxysmal atrial fibrillation not on long-term anticoagulation given history of GI bleed. Status post watchman left atrial appendage closure device insertion. Peripheral arterial disease Status post abdominal aortic aneurysm repair. Presence of Watchman left atrial appendage closure device Pulmonary hypertension Moderate pulmonary hypertension with an estimated pulmonary arterial systolic pressure of 50 mmHg on echocardiogram in September 2019. Ureterolithiasis (~09/2019) Surgical History Surgical History History of coronary artery bypass graft (~2007) 7 vessel bypass at [facility]. History of cystoscopy (~09/2019) With left ureteral stent and subsequent removal. History of penile implant History of squamous cell carcinoma excision (~11/2018) Excised from the left upper extremity. History of tonsillectomy History of ventral her
[2020-09-12 16:29] VITALS: TEMP 36.2
--- NOTE | 2020-09-12 17:10 | ADMGEN ---
This patient, Naldo Lowry, was admitted to Medical Room 245-. Patient/family oriented to hospital policies and general routines including ID bracelet, bed and alarms, visiting hours, pain management, procedures, bathroom and other care routines, personal items, smoking policy, room service/diet, and visiting hours. Information on how to activate the Rapid Response Team has been discussed. Patient/Family are encouraged to report perceived risks to care and to ask questions if they do not understand what they are told or what they should do.
[2020-09-12 21:00] VITALS: BP 114/57; BP 117/47
[2020-09-12 21:24] VITALS: BP 120/50; PULSE 53; RESP 18; TEMP 35.8; O2SAT 100
[2020-09-12 22:22] LABS: Glucose Point of Care 168 mg/dl (65-105)
[2020-09-13] VITALS (14 sets, daily range): BP systolic 107–140; BP diastolic 42–68; PULSE 53–62; RESP 14–20; TEMP 35.6–36.5; O2SAT 94–99
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
[2020-09-13 05:45] LABS: Basophils Absolute Auto 0.1 K/mm3 (0.0-0.1); Basophils Percent Auto 0.9 % (0.2-1.2); Eosinophils Absolute Auto 0.6 K/mm3 (0-0.3); Eosinophils Percent Auto 7.8 % (0-4.4); Hematocrit 26.4 % (42.0-52.0); Hemoglobin 8.9 g/dL (14.0-18.0); Immature Granulocyte Absolute 0.18 K/mm3 (0.00-0.031); Immature Granulocyte Percent A 2.2 % (0-0.5); Lymphocytes Absolute Auto 0.94 K/mm3 (0.9-3.2); Lymphocytes Percent Auto 11.4 % (18.3-44.2); Mean Corpuscular HGB Conc 33.7 g/dl (32-36); Mean Corpuscular Hemoglobin 30.6 pg (26-34); Mean Corpuscular Volume 90.7 fl (80-100); Mean Platelet Volume 8.7 fl (7.4-10.4); Monocytes Absolute Auto 0.8 K/mm3 (0.1-0.6); Monocytes Percent Auto 10.2 % (2.6-8.5); Neutrophils Absolute Auto 5.5 K/mm3 (1.3-6.7); Neutrophils Percent Auto 67.5 % (45.5-73.1); Platelet Count Result 151 k/mm3 (150-375); Red Blood Count 2.91 M/mm3 (4.6-6.20); Red Cell Distribution Width 15.9 % (11.5-14.5); White Blood Count 8.2 K/mm3 (4.5-10.0)
[2020-09-13 05:51] LABS: INR 1.1; Prothrombin Time 14.4 Seconds (11.1-14.7)
[2020-09-13 05:58] LABS: Albumin Level 1.8 g/dL (3.5-5.1); Anion Gap 7 mmol/L (8-16); Blood Urea Nitrogen 31 mg/dL (9-20); Calcium 7.6 mg/dL (8.4-10.2); Carbon Dioxide 27 mmol/L (22-30); Chloride 95 mmol/L (98-107); Estimated CRCL calculation 9 ml/min; Estimated Glomerular Filt Rate 8; Glucose 122 mg/dL (75-110); Phosphorus 6.4 mg/dL (2.5-4.5); Potassium 3.5 mmol/L (3.4-5.0); Sodium 129 mmol/L (137-145)
--- NOTE | 2020-09-13 06:35 | PC.NURSE ---
Unable to obtain standing blood pressure for orthostatics. Patient states he is unable to stand.
[2020-09-13 06:39] LABS: Hepatitis B Surface Antigen Negative (Negative)
[2020-09-13 06:45] LABS: HAV RESULT Negative (Negative); Hepatitis B Core IgM Result Negative (Negative)
[2020-09-13 06:54] LABS: Hepatitis B Surface Anti Res Negative
[2020-09-13 06:56] LABS: Hepatitis C Virus Antibody Negative (Negative)
--- NOTE | 2020-09-13 07:32 | P.PNIM_ITS ---
Progress Note: A&P Assessment and Plan (1) ESRD (end stage renal disease): Code(s): N18.6 - End stage renal disease Status: Chronic Assessment and Plan: * Patient on PD * Creatinine is 6.90 * HX of HD in the past * Patient reports performing PD 09/11/20 * Need catheter placed * Surgery consulted thank you, placement of dialysis catheter scheduled for today * NPO diet * Nephrology consulted thank you * Nephrology to manage dialysis * Trend creatinine and fluid status * Hold home spironolactone 50mg PO and Bumex 2mg Po daily for now * Labs in the am (2) Declining functional status: Code(s): R53.81 - Other malaise Status: Acute Assessment and Plan: * Multiple falls reported with the most recent on 09/11/20 * Other fall on 09/09/20 * He does have multiple bruising on arms in different stages of healing * He does report that his son is staying with him * PT/OT * May benefit from being placed or rehab * Care coordination has been consulted * was on Plavix but stated that Dr. Piper took him off of that (3) Obstructive sleep apnea on CPAP: Code(s): G47.33 - Obstructive sleep apnea (adult) (pediatric); Z99.89 - Dependence on other enabling machines and devices Status: Acute Assessment and Plan: * Hx of Sleep apnea * Patient refused and does not use at home CPAP/BiPAP * Spot check SPO2 (4) Hypertension: Code(s): I10 - Essential (primary) hypertension Status: Chronic Assessment and Plan: * BP controlled 123/49 * Patient reports taking bumex 2mg PO Daily to help with BP control * Trend blood pressure * Adjust medications as needed (5) Anemia: Code(s): D64.9 - Anemia, unspecified Status: Acute Assessment and Plan: * Chronic anemia * H/H 8.9/26.4 MCV 90.7 * Probably related to ESRD * Received Epogen in the past * Trend H/H * labs in the am * Transfuse as needed (6) Coronary artery 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: Code(s): I25.810 - Atherosclerosis of coronary artery bypass graft(s) without angina pectoris Status: Acute Assessment and Plan: * Patient had a 7 vessel bypass at [facility] (2007) * Cardiac monitoring * EKG accelerated junctional, borderline ST elevation * review monitoring for ectopy and abnormal rhythms * Continue home aspirin 81mg PO daily (7) Hyperlipidemia: Qualifiers: Hyperlipidemia type: unspecified Qualified Code(s): E78.5 - Hyperlipidemia, unspecified Code(s): E78.5 - Hyperlipidemia, unspecified Status: Acute Assessment and Plan: * Was taking simvastatin in 2019 * Will check a lipid panel * add if needed (8) Diabetes: Code(s): E11.9 - Type 2 diabetes mellitus without complications Status: Acute Assessment and Plan: * Glucose was 122 on labs and 202 on admission * Trend glucose * Will check A1c in the am * Accu checks Q6hr until eating then ACHS * Insulin sliding scale * Adjust medications as needed * Labs in the am Subjective Date/time seen: 09/13/20 09:44 Interval history: Patient is 68-year-old male with a past medical history of coronary artery disease, CHF, end-stage renal disease on PD who presented to the ED for dizziness fatigue and lightheadedness. Patient sta
--- NOTE | 2020-09-13 07:32 | PM.IMPN ---
Progress Note: A&P Assessment and Plan (1) ESRD (end stage renal disease): Code(s): N18.6 - End stage renal disease Status: Chronic Assessment and Plan: Patient on PD Creatinine is 6.90 HX of HD in the past Patient reports performing PD 09/11/20 Need catheter placed Surgery consulted thank you, placement of dialysis catheter scheduled for today NPO diet Nephrology consulted thank you Nephrology to manage dialysis Trend creatinine and fluid status Hold home spironolactone 50mg PO and Bumex 2mg Po daily for now Labs in the am (2) Declining functional status: Code(s): R53.81 - Other malaise Status: Acute Assessment and Plan: Multiple falls reported with the most recent on 09/11/20 Other fall on 09/09/20 He does have multiple bruising on arms in different stages of healing He does report that his son is staying with him PT/OT May benefit from being placed or rehab Care coordination has been consulted was on Plavix but stated that Dr. Piper took him off of that (3) Obstructive sleep apnea on CPAP: Code(s): G47.33 - Obstructive sleep apnea (adult) (pediatric); Z99.89 - Dependence on other enabling machines and devices Status: Acute Assessment and Plan: Hx of Sleep apnea Patient refused and does not use at home CPAP/BiPAP Spot check SPO2 (4) Hypertension: Code(s): I10 - Essential (primary) hypertension Status: Chronic Assessment and Plan: BP controlled 123/49 Patient reports taking bumex 2mg PO Daily to help with BP control Trend blood pressure Adjust medications as needed (5) Anemia: Code(s): D64.9 - Anemia, unspecified Status: Acute Assessment and Plan: Chronic anemia H/H 8.9/26.4 MCV 90.7 Probably related to ESRD Received Epogen in the past Trend H/H labs in the am Transfuse as needed (6) Coronary artery 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: Code(s): I25.810 - Atherosclerosis of coronary artery bypass graft(s) without angina pectoris Status: Acute Assessment and Plan: Patient had a 7 vessel bypass at [facility] (2007) Cardiac monitoring EKG accelerated junctional, borderline ST elevation review monitoring for ectopy and abnormal rhythms Continue home aspirin 81mg PO daily (7) Hyperlipidemia: Qualifiers: Hyperlipidemia type: unspecified Qualified Code(s): E78.5 - Hyperlipidemia, unspecified Code(s): E78.5 - Hyperlipidemia, unspecified Status: Acute Assessment and Plan: Was taking simvastatin in 2019 Will check a lipid panel add if needed (8) Diabetes: Code(s): E11.9 - Type 2 diabetes mellitus without complications Status: Acute Assessment and Plan: Glucose was 122 on labs and 202 on admission Trend glucose Will check A1c in the am Accu checks Q6hr until eating then ACHS Insulin sliding scale Adjust medications as needed Labs in the am Subjective Date/time seen: 09/13/20 09:44 Interval history: Patient is 68-year-old male with a past medical history of coronary artery disease, CHF, end-stage renal disease on PD who presented to the ED for dizziness fatigue and lightheadedness. Patient stated that he was in the kitchen when he blacked out and fell. Patient denies that he hit his head and stated that his son had helped him to the floor. Patient also stated that he was in line for a HD catheter. Patient does have multiple bruises on his arms in different stages of healing. Patient also stated that his son does stay with him most days. He also stated that he has been having issues with his vision which is why he also has been falling. The fall that was reported on 09/09/2020 did state that the patient did have some rib fractures. However, the patient does not report any shortness
--- NOTE | 2020-09-13 08:05 | PC.NURSE ---
Spoke with preop about patient morning medications. Instructed to give hydralazine and meclizine, but hold calcitrol for 0900.
[2020-09-13] MEDS: MECLIZINE HCL 12.5 MG TABLET PO ×2 (08:42→16:00)
--- NOTE | 2020-09-13 11:09 | PM.CNNEP ---
Assessment and Plan Assessment and plan (1) ESRD (end stage renal disease): Code(s): N18.6 - End stage renal disease Status: Chronic Assessment and Plan: patient currently on peritoneal dialysis however, now with concerns that he is unable to do this modality at home due to weakness family and patient requesting conversion back to hemodialysis Surgery consulted for tunneled HD catheter placement will re-initiated HD once HD cathter in place suspect will need outpatient dialysis set-up depending on discharge dispostion (2) Frequent falls: Code(s): R29.6 - Repeated falls Status: Acute Assessment and Plan: etiology?? numerous events with last one resulting in rib fractures PT/OT as tolerated (3) Anemia: Code(s): D64.9 - Anemia, unspecified Status: Chronic Assessment and Plan: likely due to ESRD liver issues in the past have played a role check iron studies Epogen with HD once started follow trend of H/H (4) Hypertension: Code(s): I10 - Essential (primary) hypertension Status: Chronic Assessment and Plan: reasonable control at this time follow trend of hemodynamics (5) Generalized weakness: Code(s): R53.1 - Weakness Status: Acute Assessment and Plan: worsening in the last few weeks if not months frequent falls as noted PT/OT evaluation Will continue to follow. History of Present Illness Reason for Consult Consult date: 09/13/20 Reason for consult: end stage renal disease Chief Complaint Chief complaint: esrd History of Present Illness Narrative: The patient is a 70-year-old male with past medical history as outlined below who presented to [facility] ER due to recurrent falls. Her for the last few weeks if not longer the patient has been having issues and problems with recurrent falls. He was just recently seen in the ER several days ago where he was noted to have fractured his right wrist and had fractures in his right 7th to 9th ribs following a fall previously. He apparently stood up on a chair trying to close the ceiling event when he apparently fell the chair and landed on his right side injuring these bones. However, on further questioning, he has had more more frequent falls and more debility to the point where there are concerns that he is unable to do peritoneal dialysis at home. His family has been requesting a transition from peritoneal dialysis to hemodialysis because of these issues and the concerns that he is unable to do the peritoneal dialysis appropriately. Efforts to try to transition him to hemodialysis via outpatient referral was complicated by issues with transportation and difficulty finding the surgeon to place both a HD catheter as well as possibly an AV access. As it was suspected the 0 probably also may need placement, he was referred to the ER for further evaluation. Workup and evaluation ER demonstrated the patient to be hemodynamically stable and in no acute distress. He had no other acute issues or complaints voiced in even his fractures were controlled with current medications and therapy. He did do his peritoneal dialysis yesterday evening but has been noted by the peritoneal dialysis nurses that he is not getting adequate dialysis and attempts to train him and his family to do so have been difficult as well coupled with his physical inability to actually carry the supplies and hook himself up to peritoneal dialysis as well. Hence he was admitted the hospital for placement of a tunneled dialysis catheter and transition to hemodialysis. Renal consultation was requested due to his end-stage renal disease. The patient is quite familiar to myself as I take care of his dialysis needs. The patient was initially started on hemodialysis when his kidneys failed and recently transition to peritoneal dialysis about 6 months ago. He had been doing fairly well with peritonea
--- NOTE | 2020-09-13 11:34 | PCPTNOTE ---
Attempted PT eval. Pt refused therapy, states he's having surgery today and doesn't want therapy now. Will try again tomorrow.
[2020-09-13 11:46] LABS: Glucose Point of Care 82 mg/dl (65-105)
--- NOTE | 2020-09-13 13:04 | PC.NURSE ---
To surgery per bed. IV saline locked. Report given to ADI Galeas.
--- NOTE | 2020-09-13 13:09 | PCOTNOTE ---
Attempted OT evaluation, but unable to complete as patient gone to surgery. Will attempt again at another time.
[2020-09-13] MEDS: SODIUM CHLORIDE 0.9% IV 500 ML 30 ML IV CONT (13:15)
--- NOTE | 2020-09-13 13:17 | WPDHPUPDATE1 ---
History and Physical Update Update Date/Time: 09/13/20 13:17 History and Physical has been reviewed, including an updated exam of the patient. There are NO changes in the patient's condition. Risks, benefits, and alternatives have been discussed and questions answered. Patient agrees to proceed with procedure.
--- NOTE | 2020-09-13 13:27 | WPDANESEPPF ---
Anes - Initial Pre Proc Eval Procedure: Operation Date: 09/13/20 14:30 Proposed Procedures p Placement Of Tunneled Dialysis Catheter - Naldo Panda MD Date/Time: 09/13/20 13:27 Surgeon: Fredi Ladd MD Pre Op Diagnosis: esrd Patient Data Age: 70 Gender: M Height: 1.78 m Weight: 89.3 kg Last Vital Signs Temp 97 F L 09/13/20 05:17 Pulse 53 L 09/13/20 05:17 Resp 18 09/13/20 05:17 BP 123/49 L 09/13/20 05:17 Pulse Ox 95 09/13/20 09:29 Allergies Allergy/AdvReac Type Severity Reaction Status Date / Time codeine Allergy Unknown RASH/BLISTE Verified 11/06/19 10:18 RS Home Medications Medication Instructions Recorded Confirmed Type albuterol sulfate 90 mcg/actuation 1 puff INHALATION Q4H PRN 05/24/19 09/12/20 History aerosol inhaler aspirin 81 mg chewable tablet 81 mg PO DAILY 05/24/19 09/12/20 History bumetanide 2 mg PO DAILY 09/06/19 09/12/20 History calcitriol 0.25 mcg PO DAILY 09/06/19 09/12/20 History meclizine 12.5 mg PO QID #30 tablet 10/14/19 09/12/20 Rx clopidogrel 75 mg PO DAILY 09/13/20 09/13/20 History sevelamer carbonate 1,600 mg PO AC 09/13/20 09/13/20 History spironolactone 50 mg PO DAILY 09/13/20 09/13/20 History Laboratory Tests 09/12/20 09/13/20 09/13/20 22:09 05:19 05:19 WBC RBC Hgb Hct MCV MCH MCHC RDW Plt Count MPV Immature Gran % (Auto) Neut % (Auto) Lymph % (Auto) Hudson % (Auto) Eos % (Auto) Baso % (Auto) Lymph # (Auto) Hudson # (Auto) Eos # (Auto) Baso # (Auto) Abs Immat Gran (auto) Absolute Neuts (auto) Absolute Nucleated RBC Nucleated RBC % PT 14.4 Seconds Seconds (11.1-14.7) INR 1.1 Sodium Potassium Chloride Carbon Dioxide Anion Gap BUN Creatinine Estim Creat Clear Calc Estimated GFR Glucose POC Capillary Glucose 168 mg/dl H mg/dl (65-105) Calcium Phosphorus Albumin Hepatitis A IgM Ab Hep Bs Antigen Hep Bs Antibody Negative Hep B Core IgM Ab Hepatitis C Ab Screen 09/13/20 09/13/20 09/13/20 05:19 05:19 05:20 WBC 8.2 K/mm3 K/mm3 (4.5-10.0) RBC 2.91 M/mm3 L M/mm3 (4.6-6.20) Hgb 8.9 g/dL L g/dL (14.0-18.0) Hct 26.4 % L % (42.0-52.0) MCV 90.7 fl fl (80-100) MCH 30.6 pg pg (26-34) MCHC 33.7 g/dl g/dl (32-36) RDW 15.9 % H % (11.5-14.5) Plt Count 151 k/mm3 k/mm3 (150-375) MPV 8.7 fl fl (7.4-10.4) Immature Gran % (Auto) 2.2 % H % (0-0.5) Neut % (Auto) 67.5 % % (45.5-73.1) Lymph % (Auto) 11.4 % L % (18.3-44.2) Hudson % (Auto) 10.2 % H % (2.6-8.5) Eos % (Auto) 7.8 % H % (0-4.4) Baso % (Auto) 0.9 % % (0.2-1.2) Lymph # (Auto) 0.94 K/mm3 K/mm3 (0.9-3.2) Hudson # (Auto) 0.8 K/mm3 H K/mm3 (0.1-0.6) Eos # (Auto) 0.6 K/mm3 H K/mm3 (0-0.3) Baso # (Auto) 0.1 K/mm3 K/mm3 (0.0-0.1) Abs Immat Gran (auto) 0.18 K/mm3 H K/mm3 (0.00-0.031) Absolute Neuts (auto) 5.5 K/mm3 K/mm3 (1.3-6.7) Absolute Nucleated RBC 0.0 K/mm3 K/mm3 (0.0-0.012) Nucleated RBC % 0.0 % % (0.0-0.2) PT INR Sodium 129 mmol/L L mmol/L (137-145) Potassium 3.5 mmol/L mmol/L (3.4-5.0) Chloride 95 mmol/L L mmol/L (98-107) Carbon Dioxide 27 mmol/L mmol/L (22-30) Anion Gap 7 mmol/L L mmol/L (8-
[2020-09-13] MEDS: HEPARIN SODIUM 1,000 UNITS/ML VIAL 1000 UNITS IV PUSH (14:10)
[2020-09-13] MEDS: BUPIVACAINE/EPINEPHRINE 0.25% 10 ML VIAL 20 ML INFILTRATE (14:12)
[2020-09-13] MEDS: HEPARIN SODIUM, PORCINE 10,000 UNITS/10 ML VIAL 10000 UNITS IRRIGATION (14:13)
[2020-09-13] MEDS: fentaNYL CITRATE INJ (*CRX) 100 MCG/2 ML VIAL 25 MCG IV PUSH ×2 (15:20→15:25)
--- NOTE | 2020-09-13 15:48 | PC.NURSE ---
Patient returned from surgery per bed. Report received from ADI Quezada.
[2020-09-13 15:53] LABS: Glucose Point of Care 95 mg/dl (65-105)
[2020-09-13] MEDS: calcitrioL 0.25 MCG CAPSULE PO (15:57)
[2020-09-13] MEDS: ACETAMINOPHEN 325 MG TABLET 650 MG PO (16:05)
[2020-09-13 16:38] LABS: Glucose Point of Care 115 mg/dl (65-105)
[2020-09-13] MEDS: ONDANSETRON INJ 4 MG/2 ML VIAL IV PUSH (16:57)
--- NOTE | 2020-09-13 17:18 | W.PM.PROC2 ---
Procedure Note - Detailed Date of Procedure 09/13/20 Pre-op Diagnosis esrd Post-op Diagnosis same Procedure Performed Ultrasound-guided placement of tunneled dialysis catheter. Surgeon Naldo Panda MD Director Of Accounts Payable [ ] RN.OR operations administrative assistant Anesthesia other (GIVS) Indications The patient has end-stage renal disease with need for access for hemodialysis Findings Normal Vascular anatomy in the Rt. neck. Description of Procedure The patient was placed in the supine position on the operating table and after induction of adequate mask general anesthesia by the nurse kiln charger, we carefully rotated the patient's head and tilted slightly to the left then prepping both sides of the neck and chest with chlorhexidine. After waiting 3 minutes I carefully draped the patient, and we performed a time-out confirming the patient's site of surgery. Because of the patients size, a 28 cm DuraFlow catheter was selected. Using the ultrasound probe we carefully examined the anatomy in the right neck and saved a image of this in the chart. I used ultrasound to identify the right jugular vein in the mid neck and this was cannulated under direct vision with an 18-gauge Arrow needle on a syringe. Good dark blood was aspirated, the J-guidewire was advanced through the needle and into the central venous system using the usual Seldinger technique. C-arm fluoroscopy was used to confirm that the wire was then through the central venous system and then we removed the needle and blue guide off the wire. Following this, we measured the DuraFlow catheter such that the tip would be just into the right atrium or in the distal superior vena cava. A hemostat was placed on the drapes over the chest to guide where we would place this. Then the catheter was measured back to the entry site of the J- wire in a curvilinear fashion and down to the patient's chest overlying the right clavicle. Local anesthetic was placed into 3 dunlap, the exit site and then 2 more on the patient's lateral neck such that a curvilinear path could be dissected through the subcutaneous tissues up to the insertion site on the patients right neck. Local anesthetic was infiltrated along the tract prior to tunneling. Incisions were made with a 15 blade knife at the exit site and the 2 counter incisions and then an 11 blade at the wire. The tunneling device was connected to the catheter and this was pulled through these incisions to make the subcutaneous tunnel a curvilinear course through the subcutaneous tissues to the insertion site. Then the wire was serially dilated with a 12, 14, and then a 16-Ecuadorean dilator over the pull away sheath. We watched the 16-Ecuadorean dilator and sheath go down into the central venous system with C-arm fluoroscopy and then removed the dilator wire after carefully covering the end of the catheter. I lost some blood, as we then inserted the catheter down into the central venous system. The catheter was held in place with a DeBakey forceps and then we carefully tore away the sheath leaving the catheter within the subcutaneous tissues and down into the juglar vein. Following this, C-arm fluoroscopy was used to examine the full course of the catheter. The tip was just into the right atrium and there was a good curvilinear course of the catheter in the neck down to the exit site over the right clavicle. Minimal bleeding was continuing, so we then went ahead and closed these incisions with some buried subcutaneous sutures of 4-0 Monocryl directly over the catheter at the insertion site and then buried subcutaneous sutures at each of the incisions except the exit site. 3-0 nylon was used to suture the catheter at its hub to the skin and an antibiotic disc was placed at the exit site. Tegaderm and a 2 X 2 guaze were applied over this as an occlusive dressing and the patient was taken to the recovery room in good condition. No continuing bleeding was identified in the recovery room. The [place]
[2020-09-14] VITALS (20 sets, daily range): BP systolic 93–146; BP diastolic 43–61; PULSE 52–74; RESP 16–20; TEMP 35.2–36.7; O2SAT 93–99
[2020-09-14 03:09] LABS: Glucose Point of Care 118 mg/dl (65-105)
[2020-09-14 05:50] LABS: Basophils Absolute Auto 0.1 K/mm3 (0.0-0.1); Eosinophils Absolute Auto 0.6 K/mm3 (0-0.3); Eosinophils Percent Auto 6.2 % (0-4.4); Hematocrit 27.1 % (42.0-52.0); Hemoglobin 8.8 g/dL (14.0-18.0); Immature Granulocyte Absolute 0.19 K/mm3 (0.00-0.031); Immature Granulocyte Percent A 2.1 % (0-0.5); Lymphocytes Absolute Auto 0.84 K/mm3 (0.9-3.2); Lymphocytes Percent Auto 9.5 % (18.3-44.2); Mean Corpuscular HGB Conc 32.5 g/dl (32-36); Mean Corpuscular Hemoglobin 29.6 pg (26-34); Mean Corpuscular Volume 91.2 fl (80-100); Mean Platelet Volume 8.7 fl (7.4-10.4); Monocytes Absolute Auto 0.9 K/mm3 (0.1-0.6); Monocytes Percent Auto 10.5 % (2.6-8.5); Neutrophils Absolute Auto 6.3 K/mm3 (1.3-6.7); Neutrophils Percent Auto 70.7 % (45.5-73.1); Platelet Count Result 142 k/mm3 (150-375); Red Blood Count 2.97 M/mm3 (4.6-6.20); Red Cell Distribution Width 15.9 % (11.5-14.5); White Blood Count 8.9 K/mm3 (4.5-10.0)
[2020-09-14 05:52] LABS: Alanine Aminotransferase 6 U/L (4-50); Albumin Level 1.9 g/dL (3.5-5.1); Alkaline Phosphatase 141 U/L (38-126); Anion Gap 8 mmol/L (8-16); Aspartate Amino Transferase 17 U/L (17-59); Bilirubin,Total 0.3 mg/dL (0.2-1.3); Blood Urea Nitrogen 39 mg/dL (9-20); Calcium 7.7 mg/dL (8.4-10.2); Carbon Dioxide 27 mmol/L (22-30); Chloride 95 mmol/L (98-107); Cholesterol 111 mg/dL (0-200); Estimated CRCL calculation 8 ml/min; Estimated Glomerular Filt Rate 7; Glucose 82 mg/dL (75-110); HDL Direct 26 mg/dL; Magnesium 1.7 mg/dL (1.6-2.3); Potassium 4.3 mmol/L (3.4-5.0); Sodium 130 mmol/L (137-145); Triglycerides 91 mg/dL (<150)
[2020-09-14 06:03] LABS: LDL Cholesterol Direct 58 mg/dL
[2020-09-14 07:45] LABS: Glucose Point of Care 85 mg/dl (65-105)
--- NOTE | 2020-09-14 08:00 | P.PNIM_ITS ---
Progress Note: A&P Assessment and Plan (1) ESRD (end stage renal disease): Code(s): N18.6 - End stage renal disease Status: Chronic Assessment and Plan: * Patient on PD * Creatinine is 7.960 * HX of HD in the past * Patient reports performing PD 09/11/20 * HD today * Surgery consulted thank you, placement of dialysis catheter scheduled for today * Tunnel cath placed over right clavicle * Renal dialysis diet * Nephrology consulted thank you * Nephrology to manage dialysis * Trend creatinine and fluid status * Hold home spironolactone 50mg PO and Bumex 2mg Po daily for now * Labs in the am (2) Declining functional status: Code(s): R53.81 - Other malaise Status: Acute Assessment and Plan: * Multiple falls reported with the most recent on 09/11/20 * Other fall on 09/09/20 * He does have multiple bruising on arms in different stages of healing * He does report that his son is staying with him * PT/OT * May benefit from being placed or rehab * Care coordination has been consulted * was on Plavix but stated that Dr. Piper took him off of that (3) Obstructive sleep apnea on CPAP: Code(s): G47.33 - Obstructive sleep apnea (adult) (pediatric); Z99.89 - Dependence on other enabling machines and devices Status: Acute Assessment and Plan: * Hx of Sleep apnea * Patient refused and does not use at home CPAP/BiPAP * Spot check SPO2 (4) Hypertension: Code(s): I10 - Essential (primary) hypertension Status: Chronic Assessment and Plan: * BP controlled 123/49 * Patient reports taking bumex 2mg PO Daily to help with BP control * Trend blood pressure * Adjust medications as needed (5) Anemia: Code(s): D64.9 - Anemia, unspecified Status: Acute Assessment and Plan: * Chronic anemia * H/H 8.8/27.1 MCV 90.7 * Probably related to ESRD * Received Epogen in the past * Trend H/H * Anemia panel: * labs in the am * Transfuse as needed (6) Coronary artery 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: Code(s): I25.810 - Atherosclerosis of coronary artery bypass graft(s) without angina pectoris Status: Acute Assessment and Plan: * Patient had a 7 vessel bypass at [facility] (2007) * Cardiac monitoring * EKG accelerated junctional, borderline ST elevation * review monitoring for ectopy and abnormal rhythms * Continue home aspirin 81mg PO daily (7) Hyperlipidemia: Qualifiers: Hyperlipidemia type: unspecified Qualified Code(s): E78.5 - Hyperlipidemia, unspecified Code(s): E78.5 - Hyperlipidemia, unspecified Status: Acute Assessment and Plan: * Was taking simvastatin in 2019 * lipid panel Cholesterol 111, Triglycerides 91, LDL 58, HDL 26 * add if needed (8) Diabetes: Code(s): E11.9 - Type 2 diabetes mellitus without complications Status: Acute Assessment and Plan: * Glucose was 122 on labs and 202 on admission * Trend glucose * A1c: * Accu checks Q6hr until eating then ACHS * Insulin sliding scale * Adjust medications as needed * Labs in the am (9) Fracture: Code(s): T14.8XXA - Other injury of unspecified body region, initial encounter Status: Acute Assessment and Plan: * Xray of the wrist showed Comm
--- NOTE | 2020-09-14 08:00 | PM.IMPN ---
Progress Note: A&P Assessment and Plan (1) ESRD (end stage renal disease): Code(s): N18.6 - End stage renal disease Status: Chronic Assessment and Plan: Patient on PD Creatinine is 7.960 HX of HD in the past Patient reports performing PD 09/11/20 HD today Surgery consulted thank you, placement of dialysis catheter scheduled for today Tunnel cath placed over right clavicle Renal dialysis diet Nephrology consulted thank you Nephrology to manage dialysis Trend creatinine and fluid status Hold home spironolactone 50mg PO and Bumex 2mg Po daily for now Labs in the am (2) Declining functional status: Code(s): R53.81 - Other malaise Status: Acute Assessment and Plan: Multiple falls reported with the most recent on 09/11/20 Other fall on 09/09/20 He does have multiple bruising on arms in different stages of healing He does report that his son is staying with him PT/OT May benefit from being placed or rehab Care coordination has been consulted was on Plavix but stated that Dr. Piper took him off of that (3) Obstructive sleep apnea on CPAP: Code(s): G47.33 - Obstructive sleep apnea (adult) (pediatric); Z99.89 - Dependence on other enabling machines and devices Status: Acute Assessment and Plan: Hx of Sleep apnea Patient refused and does not use at home CPAP/BiPAP Spot check SPO2 (4) Hypertension: Code(s): I10 - Essential (primary) hypertension Status: Chronic Assessment and Plan: BP controlled 123/49 Patient reports taking bumex 2mg PO Daily to help with BP control Trend blood pressure Adjust medications as needed (5) Anemia: Code(s): D64.9 - Anemia, unspecified Status: Acute Assessment and Plan: Chronic anemia H/H 8.8/27.1 MCV 90.7 Probably related to ESRD Received Epogen in the past Trend H/H Anemia panel: labs in the am Transfuse as needed (6) Coronary artery 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: Code(s): I25.810 - Atherosclerosis of coronary artery bypass graft(s) without angina pectoris Status: Acute Assessment and Plan: Patient had a 7 vessel bypass at [facility] (2007) Cardiac monitoring EKG accelerated junctional, borderline ST elevation review monitoring for ectopy and abnormal rhythms Continue home aspirin 81mg PO daily (7) Hyperlipidemia: Qualifiers: Hyperlipidemia type: unspecified Qualified Code(s): E78.5 - Hyperlipidemia, unspecified Code(s): E78.5 - Hyperlipidemia, unspecified Status: Acute Assessment and Plan: Was taking simvastatin in 2019 lipid panel Cholesterol 111, Triglycerides 91, LDL 58, HDL 26 add if needed (8) Diabetes: Code(s): E11.9 - Type 2 diabetes mellitus without complications Status: Acute Assessment and Plan: Glucose was 122 on labs and 202 on admission Trend glucose A1c: Accu checks Q6hr until eating then ACHS Insulin sliding scale Adjust medications as needed Labs in the am (9) Fracture: Code(s): T14.8XXA - Other injury of unspecified body region, initial encounter Status: Acute Assessment and Plan: Xray of the wrist showed Comminuted fracture of distal ulnar diaphysis, and Polyarticular osteoarthritis Dr. Norwood consulted thank you for recommendations Currently wrapped Trend symptoms for signs of infection PT/OT Subjective Date/time seen: 09/14/20 12:15 Interval history: Patient is 68-year-old male with a past medical history of coronary artery disease, CHF, end-stage renal disease on PD who presented to the ED for dizziness fatigue and lightheadedness. Today patient got HD and was back in his room which he has tried was trying to put on his shirt but was unable. I help the patient with this chart he said he
--- NOTE | 2020-09-14 08:03 | WPDANESPN ---
Anes - Prog Note Post-Op Date/Time: 09/14/20 08:03 Cardiovascular status: normal Respiratory status: normal Airway patency: baseline Mental status: baseline Vital Signs: Last Vital Signs Temp 36.1 C L 09/14/20 06:39 Pulse 56 L 09/14/20 06:39 Resp 16 09/14/20 06:39 BP 110/50 L 09/14/20 06:39 Pulse Ox 97 09/14/20 06:39 Pain Score (VAS): 0/10 I/O: Intake & Output 09/13/20 09/14/20 09/14/20 23:59 07:59 15:59 Intake Total 420 200 Output Total 300 200 Balance 120 0 Laboratory Tests 09/14/20 05:10 09/14/20 05:10 09/13/20 09/13/20 09/13/20 11:43 15:39 16:31 WBC RBC Hgb Hct MCV MCH MCHC RDW Plt Count MPV Immature Gran % (Auto) Neut % (Auto) Lymph % (Auto) Kay % (Auto) Eos % (Auto) Baso % (Auto) Lymph # (Auto) Kay # (Auto) Eos # (Auto) Baso # (Auto) Abs Immat Gran (auto) Absolute Neuts (auto) Absolute Nucleated RBC Nucleated RBC % Sodium Potassium Chloride Carbon Dioxide Anion Gap BUN Creatinine Estim Creat Clear Calc Estimated GFR Glucose POC Capillary Glucose 82 95 115 H Calcium Magnesium Total Bilirubin AST ALT Alkaline Phosphatase Total Protein Albumin Triglycerides Cholesterol LDL Cholesterol Direct HDL Direct 09/13/20 09/14/20 09/14/20 20:33 05:10 05:10 WBC 8.9 RBC 2.97 L Hgb 8.8 L Hct 27.1 L MCV 91.2 MCH 29.6 MCHC 32.5 RDW 15.9 H Plt Count 142 L MPV 8.7 Immature Gran % (Auto) 2.1 H Neut % (Auto) 70.7 Lymph % (Auto) 9.5 L Kay % (Auto) 10.5 H Eos % (Auto) 6.2 H Baso % (Auto) 1.0 Lymph # (Auto) 0.84 L Kay # (Auto) 0.9 H Eos # (Auto) 0.6 H Baso # (Auto) 0.1 Abs Immat Gran (auto) 0.19 H Absolute Neuts (auto) 6.3 Absolute Nucleated RBC 0.0 Nucleated RBC % 0.0 Sodium 130 L Potassium 4.3 Chloride 95 L Carbon Dioxide 27 Anion Gap 8 BUN 39 H Creatinine 7.90 H Estim Creat Clear Calc 8 Estimated GFR 7 L Glucose 82 POC Capillary Glucose 118 H Calcium 7.7 L Magnesium 1.7 Total Bilirubin 0.3 AST 17 ALT 6 Alkaline Phosphatase 141 H Total Protein 4.0 L Albumin 1.9 L Triglycerides 91 Cholesterol 111 LDL Cholesterol Direct 58 HDL Direct 26 09/14/20 07:42 WBC RBC Hgb Hct MCV MCH MCHC RDW Plt Count MPV Immature Gran % (Auto) Neut % (Auto) Lymph % (Auto) Kay % (Auto) Eos % (Auto) Baso % (Auto) Lymph # (Auto) Kay # (Auto) Eos # (Auto) Baso # (Auto) Abs Immat Gran (auto) Absolute Neuts (auto) Absolute Nucleated RBC Nucleated RBC % Sodium Potassium Chloride Carbon Dioxide Anion Gap BUN Creatinine Estim Creat Clear Calc Estimated GFR Glucose POC Capillary Glucose 85 Calcium Magnesium Total Bilirubin AST ALT Alkaline Phosphatase Total Protein Albumin Triglycerides Cholesterol LDL Cholesterol Direct HDL Direct Post-procedural complaints: none Patient Feedback: Patient satisfied with anesthetic care.
[2020-09-14 08:17] LABS: Immature Reticulocyte Fraction 31.5 % (3.0-15.9); Reticulocyte Hemoglobin Conten 35.9 pg (28.2-35.7); Reticulocyte Percent 2.62 % (0.7-4.3); Reticulocytes Absolute 0.08 B/L (32.2-175.7)
--- NOTE | 2020-09-14 08:33 | PCPTNOTE ---
Attempted PT evaluation. Spoke with RN, Rolf, about ortho consult. RN states ortho consult should be completed this date. Will hold PT until right wrist weightbearing status determined. Aye Lowry DPT.
[2020-09-14] MEDS: calcitrioL 0.25 MCG CAPSULE PO (08:41)
[2020-09-14] MEDS: MECLIZINE HCL 12.5 MG TABLET PO ×2 (08:41→17:21)
--- NOTE | 2020-09-14 08:50 | PC.NURSE ---
To dialysis per bed. Report given to ADI Leonardo.
[2020-09-14 09:25] LABS: Iron 80 ug/dL (49-181)
[2020-09-14 09:26] LABS: Lactate Dehydrogenase 309 U/L (313-618)
[2020-09-14 09:41] LABS: Percent Iron Saturation 72 % (20-50)
[2020-09-14] MEDS: EPOETIN ALFA-EPBX 10,000 UNITS/ML VIAL 10000 UNITS IV PUSH (09:42)
[2020-09-14] MEDS: SODIUM CHLORIDE 0.9% IV 1,000 ML 999 ML IV CONT (09:43)
[2020-09-14] MEDS: ALBUMIN HUMAN 25% 12.5 GM/50ML 50 ML 50 GM (09:45)
[2020-09-14 09:56] LABS: Transferrin < 80 mg/dL (206-381)
--- NOTE | 2020-09-14 11:25 | PM.PNNEP ---
Progress Note: A&P Assessment and Plan (1) ESRD (end stage renal disease): Code(s): N18.6 - End stage renal disease Status: Chronic Assessment and Plan: patient was on peritoneal dialysis however, now with concerns that he is unable to do this modality at home due to weakness family and patient requesting conversion back to hemodialysis s/p tunneled HD catheter placement yesterday HD today suspect will need outpatient dialysis set-up depending on discharge dispostion (2) Frequent falls: Code(s): R29.6 - Repeated falls Status: Acute Assessment and Plan: etiology?? numerous events with last one resulting in rib/arm fractures PT/OT as tolerated (3) Anemia: Code(s): D64.9 - Anemia, unspecified Status: Chronic Assessment and Plan: likely due to ESRD liver issues in the past have played a role Epogen with HD once started follow trend of H/H (4) Hypertension: Code(s): I10 - Essential (primary) hypertension Status: Chronic Assessment and Plan: reasonable control at this time follow trend of hemodynamics (5) Generalized weakness: Code(s): R53.1 - Weakness Status: Acute Assessment and Plan: worsening in the last few weeks if not months frequent falls as noted PT/OT evaluation Will continue to follow. Subjective Date/time seen: 09/14/20 11:25 Tolerating dialysis at the time of my visit (seen on HD at ~ 11:15AM); no acute issues or problems voiced at this time; asking me about discharge today; no apparent distress conveyed at this time. Exam Narrative: Exam Narrative: General: WD/WN male in NAD Heart: normal S1 and S2; no rub Lungs: clear to auscultation Abdomen: soft, nontender, nondistended, positive bowel sounds Extremities: no cyanosis or clubbing; 1+ edema Skin: warm and dry; multiple ecchymoses noted Objective Data Vital Signs Vital Signs: Vital Signs Temp Pulse Resp BP Pulse Ox 09/14/20 11:05 58 L 146/43 H 09/14/20 10:46 52 L 121/58 L 09/14/20 10:34 56 L 121/58 L 09/14/20 10:15 54 L 124/57 L 09/14/20 10:00 54 L 118/57 L 09/14/20 09:45 68 120/55 L 09/14/20 09:30 59 L 93/45 L 09/14/20 09:09 55 L 124/61 09/14/20 09:00 36.7 C 53 L 16 120/53 L 09/14/20 06:39 36.1 C L 56 L 16 110/50 L 97 09/14/20 02:00 36.1 C L 57 L 16 105/47 L 97 09/13/20 20:18 36.1 C L 58 L 16 129/54 L 98 09/13/20 18:00 36.5 C 58 L 14 113/49 L 98 09/13/20 17:35 36.1 C L 61 14 128/51 L 98 09/13/20 16:35 35.7 C L 59 L 14 112/50 L 98 09/13/20 16:05 35.9 C L 59 L 14 107/46 L 98 09/13/20 15:50 35.6 C L 57 L 16 110/42 L 97 09/13/20 15:35 58 L 20 110/68 94 09/13/20 15:20 58 L 18 134/58 L 96 09/13/20 15:05 60 20 129/60 96 09/13/20 14:50 56 L 20 129/55 L 95 09/13/20 14:44 36.2 C L 55 L 20 140/57 L 98 09/13/20 13:00 62 14 114/55 L 99 Intake/Output Intake/Output: Intake & Output 09/11/20 09/12/20 09/13/20 09/14/20 23:59 23:59 23:59 23:59 Intake Total 240 610 440 Output Total 550 200 Balance 240 60 240 Meds/Results Medications: Active Medications Generic Name Dose Route Start Last Admin Trade Name Freq PRN Reason Stop Dose Admin Acetaminophen 650 mg 09/12/20 15:14 09/13/20 16:05 Acetaminophen 325 Mg Tablet PO 650 mg Q4H PRN Administration Mild Pain (1-3) or Fever Calcitriol 0.25 mcg 09/13/20 09:00 09/14/20 08:41 Calcitriol 0.25 Mcg Capsule PO 0.25 mcg DAILY NOÉ Administration Dextrose 12.5 gm 09/13/20 10:13 Dextrose 50% 25 Gm/50 Ml Syringe IV PUSH PRN PRN Hypoglycemia Protocol Epoetin Wily-epbx 10,000 units 09/14/20 19:02 09/14/20 09:42 Epoetin Wily-Epbx 10,000 Units/Ml Vial IV PUSH 09/14/20 19:03 10,000 units ONCE ONE Administration Fentanyl Citrate 50 mcg 09/12/20 15:14 Fentanyl Citrate Inj (*Crx)
[2020-09-14 11:36] LABS: Free T4 Free Thyroxine Reflex 1.14 ng/dL (0.78-2.19)
[2020-09-14 12:54] LABS: Total Triiodothyronine (T3) 0.76 NG/ML (0.97-1.69)
[2020-09-14 13:26] LABS: Glucose Point of Care 107 mg/dl (65-105)
[2020-09-14 13:43] LABS: Hemoglobin A1C 5.6 % (<5.7)
--- NOTE | 2020-09-14 14:44 | PCOTNOTE ---
OT evaluation attempted this date. Patient refusing at this time due to pain and fatigue. Will attempt at later time.
--- NOTE | 2020-09-14 14:45 | PCPTNOTE ---
Attempted PT eval. Pt refused therapy. States he's tired from dialysis and his arm is hurting. Will try again tomorrow.
[2020-09-14 16:55] LABS: Glucose Point of Care 131 mg/dl (65-105)
[2020-09-14] MEDS: ONDANSETRON INJ 4 MG/2 ML VIAL IV PUSH (20:41)
[2020-09-14] MEDS: ACETAMINOPHEN 325 MG TABLET 650 MG PO (20:45)
[2020-09-14 21:07] LABS: Glucose Point of Care 93 mg/dl (65-105)
[2020-09-15 05:12] VITALS: BP 107/46; PULSE 56; RESP 18; TEMP 36.3; O2SAT 99
[2020-09-15 06:52] LABS: Glucose Point of Care 89 mg/dl (65-105)
[2020-09-15 07:48] LABS: Glucose Point of Care 105 mg/dl (65-105)
[2020-09-15] MEDS: MECLIZINE HCL 12.5 MG TABLET PO (08:00)
[2020-09-15] MEDS: calcitrioL 0.25 MCG CAPSULE PO (08:00)
[2020-09-15 08:41] LABS: Basophils Absolute Auto 0.1 K/mm3 (0.0-0.1); Basophils Percent Auto 1.2 % (0.2-1.2); Eosinophils Absolute Auto 0.7 K/mm3 (0-0.3); Hematocrit 29.6 % (42.0-52.0); Hemoglobin 9.3 g/dL (14.0-18.0); Immature Granulocyte Absolute 0.46 K/mm3 (0.00-0.031); Immature Granulocyte Percent A 5.5 % (0-0.5); Lymphocytes Absolute Auto 0.82 K/mm3 (0.9-3.2); Lymphocytes Percent Auto 9.9 % (18.3-44.2); Mean Corpuscular HGB Conc 31.4 g/dl (32-36); Mean Corpuscular Volume 95.5 fl (80-100); Mean Platelet Volume 8.8 fl (7.4-10.4); Monocytes Absolute Auto 0.9 K/mm3 (0.1-0.6); Monocytes Percent Auto 11.2 % (2.6-8.5); Neutrophils Absolute Auto 5.3 K/mm3 (1.3-6.7); Neutrophils Percent Auto 64.2 % (45.5-73.1); Platelet Count Result 153 k/mm3 (150-375); White Blood Count 8.3 K/mm3 (4.5-10.0)
[2020-09-15 09:00] LABS: Alanine Aminotransferase 6 U/L (4-50); Albumin Level 2.1 g/dL (3.5-5.1); Alkaline Phosphatase 132 U/L (38-126); Anion Gap 6 mmol/L (8-16); Aspartate Amino Transferase 17 U/L (17-59); Bilirubin,Total 0.5 mg/dL (0.2-1.3); Blood Urea Nitrogen 19 mg/dL (9-20); Carbon Dioxide 25 mmol/L (22-30); Chloride 102 mmol/L (98-107); Estimated CRCL calculation 13 ml/min; Estimated Glomerular Filt Rate 11; Glucose 99 mg/dL (75-110); Magnesium 1.7 mg/dL (1.6-2.3); Potassium 4.1 mmol/L (3.4-5.0); Sodium 133 mmol/L (137-145)
[2020-09-15 10:00] VITALS: BP 125/54; PULSE 59; RESP 18; TEMP 36.2; O2SAT 99
--- NOTE | 2020-09-15 10:48 | P.DS_ITS ---
DS: Admitting Diagnosis Admitting Diagnosis Admitting Diagnosis: anemia DS: Discharge Diagnosis Discharge Diagnosis (1) ESRD (end stage renal disease): Code(s): N18.6 - End stage renal disease Status: Chronic Assessment and Plan: * Patient on PD * Creatinine is 5.10 * HX of HD in the past * Patient reports performing PD 09/11/20 * HD today * Surgery consulted thank you, placement of dialysis catheter scheduled for today * Tunnel cath placed over right clavicle * Renal dialysis diet * Nephrology consulted thank you * Nephrology to manage dialysis * Trend creatinine and fluid status * Hold home spironolactone 50mg PO and Bumex 2mg Po daily for now * Labs in the am (2) Declining functional status: Code(s): R53.81 - Other malaise Status: Acute Assessment and Plan: * Multiple falls reported with the most recent on 09/11/20 * Other fall on 09/09/20 * He does have multiple bruising on arms in different stages of healing * He does report that his son is staying with him * PT/OT- will probably need some PT outpatient * May benefit from being placed or rehab * Care coordination has been consulted * was on Plavix but stated that Dr. Piper took him off of that (3) Obstructive sleep apnea on CPAP: Code(s): G47.33 - Obstructive sleep apnea (adult) (pediatric); Z99.89 - Dependence on other enabling machines and devices Status: Acute Assessment and Plan: * Hx of Sleep apnea * Patient refused and does not use at home CPAP/BiPAP * Spot check SPO2 (4) Hypertension: Code(s): I10 - Essential (primary) hypertension Status: Chronic Assessment and Plan: * BP controlled 125/54 * Patient reports taking bumex 2mg PO Daily to help with BP control * Trend blood pressure * Adjust medications as needed (5) Anemia: Code(s): D64.9 - Anemia, unspecified Status: Acute Assessment and Plan: * Chronic anemia * H/H 9.3/29.6 MCV 90.7 * Probably related to ESRD * Received Epogen in the past * Trend H/H * Anemia panel: * labs in the am * Transfuse as needed (6) Coronary artery 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: Code(s): I25.810 - Atherosclerosis of coronary artery bypass graft(s) without angina pectoris Status: Acute Assessment and Plan: * Patient had a 7 vessel bypass at [facility] (2007) * Cardiac monitoring * EKG accelerated junctional, borderline ST elevation * review monitoring for ectopy and abnormal rhythms * Continue home aspirin 81mg PO daily (7) Hyperlipidemia: Qualifiers: Hyperlipidemia type: unspecified Qualified Code(s): E78.5 - Hyperlipidemia, unspecified Code(s): E78.5 - Hyperlipidemia, unspecified Status: Acute Assessment and Plan: * Was taking simvastatin in 2019 * lipid panel Cholesterol 111, Triglycerides 91, LDL 58, HDL 26 * add if needed (8) Diabetes: Code(s): E11.9 - Type 2 diabetes mellitus without complications Status: Acute Assessment and Plan: * Glucose was 122 on labs and 202 on admission * Trend glucose * A1c: * Accu checks Q6hr until eating then ACHS * Insulin sliding scale * Adjust medications as needed * Labs in the am (9) Fracture: Code(s): T14.8XXA - Other injury of u
--- NOTE | 2020-09-15 10:48 | PM.DS ---
DS: Admitting Diagnosis Admitting Diagnosis Admitting Diagnosis: anemia DS: Discharge Diagnosis Discharge Diagnosis (1) ESRD (end stage renal disease): Code(s): N18.6 - End stage renal disease Status: Chronic Assessment and Plan: Patient on PD Creatinine is 5.10 HX of HD in the past Patient reports performing PD 09/11/20 HD today Surgery consulted thank you, placement of dialysis catheter scheduled for today Tunnel cath placed over right clavicle Renal dialysis diet Nephrology consulted thank you Nephrology to manage dialysis Trend creatinine and fluid status Hold home spironolactone 50mg PO and Bumex 2mg Po daily for now Labs in the am (2) Declining functional status: Code(s): R53.81 - Other malaise Status: Acute Assessment and Plan: Multiple falls reported with the most recent on 09/11/20 Other fall on 09/09/20 He does have multiple bruising on arms in different stages of healing He does report that his son is staying with him PT/OT- will probably need some PT outpatient May benefit from being placed or rehab Care coordination has been consulted was on Plavix but stated that Dr. Piper took him off of that (3) Obstructive sleep apnea on CPAP: Code(s): G47.33 - Obstructive sleep apnea (adult) (pediatric); Z99.89 - Dependence on other enabling machines and devices Status: Acute Assessment and Plan: Hx of Sleep apnea Patient refused and does not use at home CPAP/BiPAP Spot check SPO2 (4) Hypertension: Code(s): I10 - Essential (primary) hypertension Status: Chronic Assessment and Plan: BP controlled 125/54 Patient reports taking bumex 2mg PO Daily to help with BP control Trend blood pressure Adjust medications as needed (5) Anemia: Code(s): D64.9 - Anemia, unspecified Status: Acute Assessment and Plan: Chronic anemia H/H 9.3/29.6 MCV 90.7 Probably related to ESRD Received Epogen in the past Trend H/H Anemia panel: labs in the am Transfuse as needed (6) Coronary artery 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: Code(s): I25.810 - Atherosclerosis of coronary artery bypass graft(s) without angina pectoris Status: Acute Assessment and Plan: Patient had a 7 vessel bypass at [facility] (2007) Cardiac monitoring EKG accelerated junctional, borderline ST elevation review monitoring for ectopy and abnormal rhythms Continue home aspirin 81mg PO daily (7) Hyperlipidemia: Qualifiers: Hyperlipidemia type: unspecified Qualified Code(s): E78.5 - Hyperlipidemia, unspecified Code(s): E78.5 - Hyperlipidemia, unspecified Status: Acute Assessment and Plan: Was taking simvastatin in 2019 lipid panel Cholesterol 111, Triglycerides 91, LDL 58, HDL 26 add if needed (8) Diabetes: Code(s): E11.9 - Type 2 diabetes mellitus without complications Status: Acute Assessment and Plan: Glucose was 122 on labs and 202 on admission Trend glucose A1c: Accu checks Q6hr until eating then ACHS Insulin sliding scale Adjust medications as needed Labs in the am (9) Fracture: Code(s): T14.8XXA - Other injury of unspecified body region, initial encounter Status: Acute Assessment and Plan: Xray of the wrist showed Comminuted fracture of distal ulnar diaphysis, and Polyarticular osteoarthritis Dr. Norwood consulted thank you for recommendations Currently wrapped Trend symptoms for signs of infection PT/OT DS: Summary Hospital Course Hospital Course: Patient is 68-year-old male with a past medical history of coronary artery disease, CHF, end-stage renal disease on PD who presented to the ED for dizziness fatigue and lightheadedness. since admission a tunnel catheter was placed by General s
[2020-09-15] MEDS: BISACODYL 10 MG SUPPOSITORY RECTAL (11:45)
[2020-09-15 12:00] LABS: Glucose Point of Care 110 mg/dl (65-105)
--- NOTE | 2020-09-15 12:39 | PM.PNNEP ---
Progress Note: A&P Assessment and Plan (1) ESRD (end stage renal disease): Code(s): N18.6 - End stage renal disease Status: Chronic Assessment and Plan: patient was on peritoneal dialysis however, now with concerns that he is unable to do this modality at home due to weakness family and patient requesting conversion back to hemodialysis s/p tunneled HD catheter placement yesterday HD yesterday plan HD tomorrow until outpatient HD schedule finalized (2) Frequent falls: Code(s): R29.6 - Repeated falls Status: Acute Assessment and Plan: etiology?? numerous events with last one resulting in rib/arm fractures PT/OT as tolerated (3) Anemia: Code(s): D64.9 - Anemia, unspecified Status: Chronic Assessment and Plan: likely due to ESRD liver issues in the past have played a role Epogen with HD once started follow trend of H/H (4) Hypertension: Code(s): I10 - Essential (primary) hypertension Status: Chronic Assessment and Plan: reasonable control at this time follow trend of hemodynamics (5) Generalized weakness: Code(s): R53.1 - Weakness Status: Acute Assessment and Plan: worsening in the last few weeks if not months frequent falls as noted PT/OT evaluation Will continue to follow. Subjective Date/time seen: 09/15/20 12:39 Tolerated dialysis yesterday without any issue or problems; no new issues or complaints voiced; anxious for discharge; no events/issues overnight or earlier this AM. Exam Narrative: Exam Narrative: General: WD/WN male in NAD Heart: normal S1 and S2; no rub Lungs: clear to auscultation Abdomen: soft, nontender, nondistended, positive bowel sounds Extremities: no cyanosis or clubbing; 1+ edema Skin: warm and intact; multiple ecchymoses noted Objective Data Vital Signs Vital Signs: Vital Signs Temp Pulse Resp BP Pulse Ox 09/15/20 10:00 36.2 C L 59 L 18 125/54 L 99 09/15/20 05:12 36.3 C L 56 L 18 107/46 L 99 09/14/20 20:18 36.2 C L 57 L 20 98/46 L 93 09/14/20 18:00 35.8 C L 53 L 18 107/46 L 99 09/14/20 14:00 35.7 C L 68 18 107/50 L 99 Intake/Output Intake/Output: Intake & Output 09/12/20 09/13/20 09/14/20 09/15/20 23:59 23:59 23:59 23:59 Intake Total 240 610 680 480 Output Total 550 1700 150 Balance 240 60 -1020 330 Meds/Results Medications: Active Medications Generic Name Dose Route Start Last Admin Trade Name Freq PRN Reason Stop Dose Admin Acetaminophen 650 mg 09/12/20 15:14 09/14/20 20:45 Acetaminophen 325 Mg Tablet PO 650 mg Q4H PRN Administration Mild Pain (1-3) or Fever Bisacodyl 10 mg 09/15/20 10:47 09/15/20 11:45 Bisacodyl 10 Mg Suppository RECTAL 10 mg ONCE PRN Administration Constipation Bisacodyl 5 mg 09/15/20 10:47 Bisacodyl 5 Mg Tablet Ec PO ONCE PRN Constipation Calcitriol 0.25 mcg 09/13/20 09:00 09/15/20 08:00 Calcitriol 0.25 Mcg Capsule PO 0.25 mcg DAILY NOÉ Administration Dextrose 12.5 gm 09/13/20 10:13 Dextrose 50% 25 Gm/50 Ml Syringe IV PUSH PRN PRN Hypoglycemia Protocol Fentanyl Citrate 50 mcg 09/12/20 15:14 Fentanyl Citrate Inj (*Crx) 100 Mcg/2 Ml Vial IV PUSH Q2H PRN Pain Rated 7-10 Glucagon 1 mg 09/13/20 10:13 Glucagon For Inj 1 Mg Vial IM PRN PRN Hypoglycemia Protocol Glucose 15 gm 09/13/20 10:13 Glucose Oral Gel 15 Gm Of Glucse In 37.5 Gm Tube PO PRN PRN Hypoglycemia Protocol Dextrose 1,000 mls @ 100 mls/hr 09/13/20 10:13 Dextrose 5% 1,000 Ml IVPB PRN PRN Hypoglycemia Protocol Albumin Human 50 mls @ 999 mls/hr 09/14/20 07:02 Albutein IVPB 10/14/20 07:03 Q10M PRN HYPOTENSION Insulin Aspart 2 - 5 units 09/13/20 12:00 09/15/20 12:00 Insulin Aspart (*Bkc) 100 Units/Ml SUB-Q Not Given TIDWM NOÉ Prot
== END 2020-09-15 14:55 | disposition home health service (06) | DRG 291 ==
LOC: ANHED 13:18 → ANH2MED 15:45
PROVIDERS: Internal Medicine; Internal Medicine Nephrology; Surgery; Admitting Provider Internal Medicine; Emergency Provider Emergency Medicine; PCP Family Medicine; Visit Provider Nurse Practitioner
PROC: 0JH63XZ Insertion of Tunneled Vascular Access Device into Chest Subcutaneous Tissue and Fascia, Percutaneous Approach (ICD-10-PCS; CPT 36908; principal; 2020-09-13 14:30)
DX: I13.2 Hypertensive heart and chronic kidney disease with heart failure and with stage 5 chronic kidney disease, or end stage renal disease (principal); N18.6 End stage renal disease; S59.001A Unspecified physeal fracture of lower end of ulna, right arm, initial encounter for closed fracture; S22.41XA Multiple fractures of ribs, right side, initial encounter for closed fracture; I50.32 Chronic diastolic (congestive) heart failure; I48.20 Chronic atrial fibrillation, unspecified; E11.22 Type 2 diabetes mellitus with diabetic chronic kidney disease; G47.33 Obstructive sleep apnea (adult) (pediatric); D63.1 Anemia in chronic kidney disease; K75.81 Nonalcoholic steatohepatitis (NASH); J44.9 Chronic obstructive pulmonary disease, unspecified; I25.10 Atherosclerotic heart disease of native coronary artery without angina pectoris; K21.9 Gastro-esophageal reflux disease without esophagitis; K74.60 Unspecified cirrhosis of liver; E78.5 Hyperlipidemia, unspecified; Z99.2 Dependence on renal dialysis; Z95.1 Presence of aortocoronary bypass graft; Z85.828 Personal history of other malignant neoplasm of skin; Z87.891 Personal history of nicotine dependence; Z98.42 Cataract extraction status, left eye; Z98.41 Cataract extraction status, right eye; S40.022A Contusion of left upper arm, initial encounter; S40.021A Contusion of right upper arm, initial encounter; W07.XXXA Fall from chair, initial encounter; R29.6 Repeated falls
CPT/HCPCS: 36415; 76937; 77001; 80048; 80053; 80061; 80069; 80074; 82607; 82728; 82746; 82948; 83036; 83540; 83550; 83615; 83735; 84439; 84443; 84466; 84480; 85025; 85046; 85610; 86706; 93005; 97161; 97165; 99285; A9270; C1750; G0257; G0378; J0690; J1644; J2405; J2704; J3010; J7030; J7040; P9047; Q5106

== ENCOUNTER 2020-10-04 11:17 | Observation (INO) | payer MEDICARE, SELFPAY ==
[2020-10-04] VITALS (44 sets, daily range): BP systolic 94–146; BP diastolic 44–74; PULSE 62–86; RESP 16–28; TEMP 36.4–37.9; O2SAT 93–100
--- NOTE | ~2020-10-04 | CT_ITS ---
EXAMINATION: CT brain wo con EXAM DATE: 10/04/2020 16:27 INDICATION: Confusion. TECHNIQUE: Spiral CT of the head was performed without contrast. Axial, coronal and sagittal images were reviewed. The dose-length product (DLP) for this examination was 605.33 mGy-cm. The exposure w as tailored according to patient size, and iterative reconstruction (ASIR) was used as additional dos e reduction technique. There is no prior study for comparison. FINDINGS: Punctate old left internal capsular anterior limb lacunar infarction. There is no acute int raparenchymal hemorrhage. No evidence of intraparenchymal brain mass lesion. No evidence of acute i nfarction. Please note that initial head CT has limited sensitivity for small or acute infarctions. There is mild periventricular and subcortical hypodensity, nonspecific but probably related to small vessel ischemic disease. There is moderate prominence of the sulci and ventricles related to cerebr al atrophy. There is intracranial carotid arteriosclerosis. There are no extra-axial collections. There is no mass effect or midline shift. Patient has had left-sided ocular lens surgery. Soft ti ssue is unremarkable. The visualized sinuses and mastoid air cells are well aerated. IMPRESSION: 1. Punctate old left internal capsular lacunar infarction. 2. Chronic age related findings. Reviewed, dictated and finalized at location A.
--- NOTE | ~2020-10-04 | XR_ITS ---
EXAMINATION: XR chest 2V DATE: 10/04/2020 11:36 INDICATION: Shortness of breath TECHNIQUE: AP and lateral views of the chest are obtained. COMPARISON: 09/13/2020 FINDINGS: There is elevation of the right hemidiaphragm. A right internal jugular dialysis catheter e nds with its tip in the proximal right atrium. There are small pleural effusions. A mild interstitial pattern is present. The heart size is upper limits of normal for technique. Median sternotomy wires are consistent with prior cardiac surgery. Calcified atherosclerosis is noted. IMPRESSION: 1. Mild pulmonary edema. 2. Small pleural effusions. Reviewed, dictated and finalized at location B.
--- NOTE | ~2020-10-04 | CT_ITS ---
EXAMINATION: CT abdomen pelvis wo con DATE: 10/04/2020 15:58 INDICATION: Abdominal pain, tenderness for 2 days. Generalized weakness. TECHNIQUE: Computed tomography (CT) of the abdomen and pelvis was performed without intravenous contr ast. Automated exposure control and iterative reconstruction technique were employed. Exam dose: 107 9.50 mGy-cm total exam DLP. COMPARISON: 09/05/[address] abdomen pelvis FINDINGS: Bilateral gynecomastia. There is mild right pleural effusion and right lower lobe compressive and dependent atelectasis. Slight left pleural effusion. Minimal dependent left lower lobe atelectasis. Borderline heart size. Status post sternotomy and probable coronary bypass graft surgery. Left atrial appendage closure device. There is mild ascites, primarily around the liver, right paracolic gutter and dependent pelvis. Surface nodularity of the liver consistent with cirrhosis. Approximately 2.2 cm left hepatic cyst is again noted. Small hepatic dome probable cysts. Spleen is w ithin upper normal limits for size. Multiple small gallstones are noted. No gallbladder wall thickening or pericholecystic fluid or fat s tranding. No bile duct or pancreatic duct dilatation. No pancreatic mass lesion or calcification is evident. The adrenal glands are unremarkable. There is extensive abdominal aortic, celiac, superior mesenteric , renal, inferior mesenteric and iliac and femoral artery calcifications. No abdominal aortic aneurys m. There are numerous nonspecific shotty nonenlarged periaortic, aortocaval, iliac and inguinal lymph no kailey. Implantable penile prosthesis. Prostate enlargement and calcifications. Mild diffuse thickening of the urinary bladder wall. There i s a small amount of air in the urinary bladder, which may be due to recent instrumentation, infection or less likely fistula. Recent lateral right sixth through ninth minimally displaced rib fractures with healing. Subacute or old posterior left 11th rib fracture. Diffuse osteopenia. Multilevel degenerative disease of the lumbar spine. IMPRESSION: Mild right minimal left pleural effusion Right lower lobe compressive atelectasis Minimal dependent left lower lobe atelectasis Mild ascites Hepatic cysts Cholelithiasis Prostate enlargement and calcifications with probable mild associated bilateral obstruction Recent lateral right sixth through ninth rib and displaced rib fractures; subacute or old posterior l eft 11th rib fracture Reviewed, dictated and finalized at Location A. Reviewed, dictated and finalized at location A. IMPRESSION: Mild right minimal left pleural effusion Right lower lobe compressive atelectasis Minimal dependent left lower lobe atelectasis Mild ascites Hepatic cysts Cholelithiasis Prostate enlargement and calcifications with probable mild associated bilateral obstruction Recent lateral right sixth through ninth rib and displaced rib fractures; subac hugo or old posterior left 11th rib fracture
--- NOTE | 2020-10-04 11:19 | ECG_ITS ---
Measurements Intervals Balm Rate: 78 P: AK: 0 QRS: -65 QRSD: 98 T: 133 QT: 328 QTc: 375 Interpretive Statements ATRIAL FIBRILLATION POOR R WAVE PROGRESSION, ANTERIOR LEADS INFERIOR INFARCT, AGE INDETERMINATE BORDERLINE ST-T WAVE ABNORMALITY- ANTEROLAT/HIGH LAT LEADS BASELINE ARTIFACT- I, II, III, AVR, AVL, AVF, V1-V3 ABNORMAL ECG Electronically Signed On 10-04-2020 13:53:37 CDT by Peter Pollack D.O.
[2020-10-04 11:33] LABS: Basophils Percent Auto 0.2 % (0.2-1.2); Hematocrit 29.9 % (42.0-52.0); Hemoglobin 9.7 g/dL (14.0-18.0); Immature Granulocyte Absolute 0.19 K/mm3 (0.00-0.031); Immature Granulocyte Percent A 1.6 % (0-0.5); Lymphocytes Absolute Auto 0.53 K/mm3 (0.9-3.2); Lymphocytes Percent Auto 4.3 % (18.3-44.2); Mean Corpuscular HGB Conc 32.4 g/dl (32-36); Mean Corpuscular Hemoglobin 31.5 pg (26-34); Mean Corpuscular Volume 97.1 fl (80-100); Mean Platelet Volume 8.7 fl (7.4-10.4); Monocytes Absolute Auto 1.1 K/mm3 (0.1-0.6); Neutrophils Absolute Auto 10.4 K/mm3 (1.3-6.7); Neutrophils Percent Auto 84.9 % (45.5-73.1); Platelet Count Result 155 k/mm3 (150-375); Red Blood Count 3.08 M/mm3 (4.6-6.20); Red Cell Distribution Width 15.6 % (11.5-14.5); White Blood Count 12.2 K/mm3 (4.5-10.0)
[2020-10-04 11:41] LABS: Anion Gap 9 mmol/L (8-16); Blood Urea Nitrogen 42 mg/dL (9-20); Calcium 8.2 mg/dL (8.4-10.2); Carbon Dioxide 24 mmol/L (22-30); Chloride 99 mmol/L (98-107); Estimated CRCL calculation 12 ml/min; Estimated Glomerular Filt Rate 8; Glucose 63 mg/dL (65-110); Potassium 5.5 mmol/L (3.4-5.0); Sodium 132 mmol/L (137-145)
[2020-10-04] MEDS: DEXTROSE 50% 25 GM/50 ML SYRINGE IV PUSH (13:38)
--- NOTE | 2020-10-04 13:56 | ED.SOB ---
HPI - SOB/Dyspnea General Chief Complaint: Shortness of Breath/Dyspnea Stated Complaint: SOB - MISSED DIALYSIS Time Seen by Provider: 10/04/20 12:23 Source: patient and family Mode of arrival: EMS Limitations: clinical condition History of Present Illness HPI Narrative: 70-year-old male History of chronic renal failure Condition is recently declined and he has moved in with his son and been switched from peritoneal dialysis to hemodialysis According to son 2 days ago he had a home health visit and there was some concern on the part of the worker that he might be becoming ill, pneumonia was speculated, and it was suggested to keep a close eye and The patient on Friday felt like he felt too bad to go to dialysis This morning shortly after waking she had an episode of shortness of breath which she thinks lasted about 1/2-hour Because of this, he once again felt too bad to go to dialysis and instead came via EMS to the ED He did get a nebulizer which helped some and he does not feel particularly short of breath while he is lying on the gurney He does report that he is not anuric He denies a fever, does have a little bit of a cough which is nonproductive His son thinks that he has occasionally seemed out of it Related Data Home Medications Medication Instructions Recorded Confirmed albuterol sulfate 90 mcg/actuation 1 puff INHALATION Q4H PRN 05/24/19 09/12/20 aerosol inhaler aspirin 81 mg chewable tablet 81 mg PO DAILY 05/24/19 09/12/20 bumetanide 2 mg PO DAILY 09/06/19 09/12/20 calcitriol 0.25 mcg PO DAILY 09/06/19 09/12/20 sevelamer carbonate 1,600 mg PO AC 09/13/20 09/13/20 spironolactone 50 mg PO DAILY 09/13/20 09/13/20 Allergies Allergy/AdvReac Type Severity Reaction Status Date / Time codeine Allergy Unknown RASH/BLISTE Verified 09/13/20 13:46 RS Review of Systems Review of Systems: All systems reviewed & are unremarkable except as noted in HPI and below Constitutional: Constitutional: Denies chills, Reports fatigue, Denies fever(s), Denies headache(s) and Reports weakness Eyes: Eyes: Reports no additional eye complaints and Denies change in vision ENT: Denies headache(s) and Denies sore throat Cardiovascular: Cardiovascular: Denies chest pain and Denies dyspnea Respiratory: Respiratory: Reports cough and Reports dyspnea Gastrointestinal: Gastrointestinal: Reports abdominal pain, Denies diarrhea, Reports nausea and Denies vomiting Genitourinary: Genitourinary: Reports oliguria, Denies dysuria and Denies urinary frequency Musculoskeletal: Musculoskeletal: Reports myalgias, Denies deformity, Denies arthralgias, Denies joint swelling and Denies numbness Integumentary/Breasts: Skin/Breast: Denies rash and Denies wounds Neurologic: Reports confusion, Denies headache(s), Denies focal weakness and Denies numbness Psychiatric: Psychiatric: Reports no additional psychiatric complaints Endocrine: Endocrine: Reports no additional endocrine complaints Hematologic/Lymphatic: Hematologic/Lymphatic: Reports no additional hematologic/lymphatic complaints Allergic/Immunologic: Allergic/Immunologic: Reports no additional allergic/immunologic complaints [facility] Past Medical History Medical History (Updated 10/04/20 @ 14:06 by Cb Davis MD) Chronic anemia Chronic diastolic congestive heart failure Echocardiogram in September 2019 showed normal left ventricular size and function with an ejection fraction estimated at 60 to 65% with abnormal diastolic function, moderate biatrial enlargement, mild aortic valve sclerosis, moderate aortic valve regurgitation, and trace mitral and tricuspid valve regurgitation. Chronic obstructive pulmonary disease Cirrhosis of liver with ascites Attributed to BURROWS however he has never had a liver biopsy. Coronary artery disease Status post 7 vessel CABG in 2007. No definite infarct or ischemia on nuclear stress test in September 2019. Diabetes Diet-controlled type 2 diabetes m
[2020-10-04 14:31] LABS: Glucose Point of Care 124 mg/dl (65-105)
[2020-10-04] MEDS: ASPIRIN 81 MG CHEWABLE TABLET PO (14:45)
--- NOTE | 2020-10-04 15:38 | PM.IMHP ---
H&P: HPI History of Present Illness Date/Time: 10/04/20 15:38Thilukas is a 70-year-old male patient who has end-stage renal disease. The patient had been doing peritoneal dialysis and recently got and ultrasound-guided placement of a tunneled dialysis catheter by Dr. Panda on 09/13/2020. The patient has dialysis on Friday and Friday. The patient stated he was not feeling very well on Friday and did go to dialysis. The patient is somewhat lethargic now and is having difficulty answering questions. I have to keep waking him up to get him to answer the questions. He appears to be very hard of hear. The patient lives with his son. The patient was supposed to go to dialysis today but instead he called for EMS to come to the ED. The patient was given a nebulizer which help some does not feel too short of breath. I kept asking the patient several times if he still makes urine and he would not answer me. According the records the patient is not an uric. He denies a fever but has a little bit of a cough. The cough is nonproductive. His white count is noted to be 12.12. H&H is 9.7 and 29.9. Nephrology has been consulted. Chest x-ray was read as mild pulmonary edema. Small pleural effusions. The patient has a tunneled catheter to the right upper chest. Patient still has a catheter to his abdomen from the peritoneal dialysis. The patient's abdomen is warm to touch and tender. The patient is being admitted as inpatient on the date of service of 10/04/2020. Chief Complaint: Shortness of breath and missed dialysis Review of Systems Review of Systems: All systems reviewed & are unremarkable except as noted in HPI and below Constitutional: Constitutional: Reports as per HPI and Reports no additional constitutional complaints Eyes: Eyes: Reports as per HPI and Reports no additional eye complaints ENT: Reports system reviewed and no additional complaints, except as documented and Reports Normal hearing present Cardiovascular: Cardiovascular: Reports no additional cardiovascular complaints Respiratory: Respiratory: Reports no additional respiratory complaints and Reports no additional respiratory complaints Gastrointestinal: Gastrointestinal: Reports as per HPI and Reports no additional gastrointestinal complaints Musculoskeletal: Musculoskeletal: Reports no additional musculoskeletal complaints Integumentary/Breasts: Skin/Breast: Reports system reviewed and no additional complaints, except as docu and Reports as per HPI Neurologic: Reports system reviewed and no additional complaints, except as documented, Reports as per HPI and Reports Normal hearing present Psychiatric: Psychiatric: Reports no additional psychiatric complaints and Reports as per HPI Endocrine: Endocrine: Reports no additional endocrine complaints Hematologic/Lymphatic: Hematologic/Lymphatic: Reports no additional hematologic/lymphatic complaints Allergic/Immunologic: Allergic/Immunologic: Reports no additional allergic/immunologic complaints [facility] Past Medical History Medical History (Updated 10/04/20 @ 16:09 by Renetta Salinas NP) Chronic anemia Chronic diastolic congestive heart failure Echocardiogram in September 2019 showed normal left ventricular size and function with an ejection fraction estimated at 60 to 65% with abnormal diastolic function, moderate biatrial enlargement, mild aortic valve sclerosis, moderate aortic valve regurgitation, and trace mitral and tricuspid valve regurgitation. Chronic obstructive pulmonary disease Cirrhosis of liver with ascites Attributed to BURROWS however he has never had a liver biopsy. Coronary artery disease Status post 7 vessel CABG in 2007. No definite infarct or ischemia on nuclear stress test in September 2019. Diabetes Diet-controlled type 2 diabetes mellitus End-stage renal disease on peritoneal dialysis tunneled dialysis catheter right upper chest. Fracture Gastroesophageal reflux disease GI bleed March 2014, Sep
[2020-10-04] MEDS: SODIUM CHLORIDE 0.9% IV 1,000 ML 100 ML IV CONT (15:45)
--- NOTE | 2020-10-04 15:49 | PC.NURSE ---
Pt to ct at this time.
--- NOTE | 2020-10-04 16:20 | PC.NURSE ---
Dialysis has contacted at this time to inform that pt can come up to 308 for treatment.
--- NOTE | 2020-10-04 16:24 | PC.NURSE ---
pt taken for head ct at this time, will transport to dialysis at upon return.
--- NOTE | 2020-10-04 16:41 | PC.NURSE ---
Pt to dialysis on portable monitor per this rn at this time. [employer] internship at bedside.
--- NOTE | 2020-10-04 17:45 | PC.NURSE ---
PT STILL IN DIALYSIS.
--- NOTE | 2020-10-04 17:49 | PM.EVENT ---
Event Note Event Note Event Note: Patient is on dialysis. He is tolerating it well. Blood pressure in the 120s. Will remove Three L of fluid today. he was seen at 5:25 p.m.
--- NOTE | 2020-10-04 17:50 | PM.CNNEP ---
Assessment and Plan Assessment and plan (1) ESRD (end stage renal disease): Code(s): N18.6 - End stage renal disease Status: Chronic Assessment and Plan: the patient has end-stage renal disease. This is due to diabetes and hypertension. He is on dialysis 3 times a week. He skipped Friday. Consequently he has become short of breath. He makes some urine but not very much and has volume overload due to missing the treatment on Friday. will do dialysis today and remove fluid. His potassium is not too bad. He is on a 2 K bath. (2) Abdominal pain: Code(s): R10.9 - Unspecified abdominal pain Status: Acute Assessment and Plan: The patient has abdominal discomfort. It seems diffuse. He does not have rebound tenderness however. CT the abdomen does not show much except for some hepatic cysts cholelithiasis and signs of volume overload. I worry about peritonitis. I will have the nurse put a bag of fluid in and then send it for culture and cell count 1hour later. If the fluid is cloudy the nurse is going to call me and I will give him some intraperitoneal antibiotics. (3) Volume overload: Code(s): E87.70 - Fluid overload, unspecified Status: Acute Assessment and Plan: The patient has volume overload from missing treatments. Will remove fluid today. (4) Frequent falls: Code(s): R29.6 - Repeated falls Status: Acute Assessment and Plan: The patient has had multiple falls. He fell once and broke his right arm and also cracked several ribs. Perhaps he would benefit from some physical therapy. (5) Hypertension: Code(s): I10 - Essential (primary) hypertension Status: Chronic Assessment and Plan: The patient has hypertension. His blood pressure is well controlled. He does not take any blood pressure meds. (6) Erythropoietin deficiency anemia: Code(s): D63.1 - Anemia in chronic kidney disease Status: Acute Assessment and Plan: The patient has anemia. He will get some Epogen today. (7) Paroxysmal atrial fibrillation: Code(s): I48.0 - Paroxysmal atrial fibrillation Status: Acute Assessment and Plan: The patient has paroxysmal atrial fibrillation. Heart rate is under good control He has a Watchman device. (8) Renal osteodystrophy: Code(s): N25.0 - Renal osteodystrophy Status: Acute Assessment and Plan: will check a phosphorus tomorrow (9) Coronary artery 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: Code(s): I25.810 - Atherosclerosis of coronary artery bypass graft(s) without angina pectoris Status: Acute Assessment and Plan: no chest pain (10) Diabetes: Code(s): E11.9 - Type 2 diabetes mellitus without complications Status: Acute Assessment and Plan: on Accu-Cheks and sliding-scale insulin (11) Cirrhosis of liver with ascites: Qualifiers: Hepatic cirrhosis type: unspecified hepatic cirrhosis Qualified Code(s): K74.60 - Unspecified cirrhosis of liver; R18.8 - Other ascites Code(s): K74.60 - Unspecified cirrhosis of liver; R18.8 - Other ascites Status: Chronic Assessment and Plan: due to BURROWS presumptively. History of Present Illness Reason for Consult Consult date: 10/04/20 Chief Complaint Chief complaint: azotemiadyspnea,hypoglycemia History of Present Illness Narrative: Naldo is a very pleasant 70-year-old gentleman who has multiple medical problems including end-stage renal disease on dialysis on Wednesdays and Fridays, renal osteodystrophy, anemia of chronic kidney disease, diastolic congestive heart failure with a normal LVEF, COPD, cirrhosis of the liver with ascites, coronary artery disease status post bypass, negative stress test 1 year ago, diabetes, history of GI bleed, sleep apnea but does not use a CPAP mask,
--- NOTE | 2020-10-04 18:05 | PC.NURSE ---
Pt still in dialysis
[2020-10-04 18:32] LABS: Source Peritoneal Fluid Peritoneal Fluid
[2020-10-04 18:34] LABS: Appearance Peritoneal Fluid Hazy (Clear); Color Peritoneal Fluid Yellow (Colorless)
[2020-10-04 19:11] LABS: Nucleated Cells Peritoneal Flu 229 /uL (0-500); RBC Peritoneal Fluid 788 /uL (0-100000)
--- NOTE | 2020-10-04 19:14 | PC.NURSE ---
Report to carlie Arellano at this time she has assumed pt care, pt still in dialysis on surveillance system monitor.
[2020-10-04 19:21] LABS: Lymphocytes Peritoneal Fluid 47 %; Macrophages Peritoneal Fluid 6 %; Monocytes Peritoneal Fluid 6 %; Neutrophils Peritoneal Fluid 41 % (0-25)
[2020-10-04] MEDS: EPOETIN ALFA-EPBX 10,000 UNITS/ML VIAL 10000 UNITS IV PUSH (19:23)
--- NOTE | 2020-10-04 19:30 | PC.NURSE ---
pt still in dialysis at this time.
--- NOTE | 2020-10-04 20:28 | PC.NURSE ---
pt still in dialysis at this time.
[2020-10-04 20:45] LABS: Hepatitis B Surface Antigen Negative (Negative)
[2020-10-04 21:02] LABS: Hepatitis B Surface Anti Res Negative
--- NOTE | 2020-10-04 21:11 | ADMGEN ---
This patient, Naldo Lorwy, was admitted to 3 Med Surg Room 309-01. Patient/family oriented to hospital policies and general routines including ID bracelet, bed and alarms, visiting hours, pain management, procedures, bathroom and other care routines, personal items, smoking policy, room service/diet, and visiting hours. Information on how to activate the Rapid Response Team has been discussed. Patient/Family are encouraged to report perceived risks to care and to ask questions if they do not understand what they are told or what they should do.
[2020-10-04] MEDS: ALBUTEROL SULFATE NEB 2.5 MG/0.5 ML INH 5 MG INHALATION (21:49)
[2020-10-05] VITALS (15 sets, daily range): BP systolic 110–125; BP diastolic 45–76; PULSE 55–77; RESP 16–20; TEMP 36.4–38.1; O2SAT 93–100
[2020-10-05] MEDS: ALBUTEROL SULFATE NEB 2.5 MG/0.5 ML INH 5 MG INHALATION ×3 (02:54→13:59)
[2020-10-05] MEDS: SEVELAMER CARBONATE 800 MG TABLET 1600 MG PO ×3 (05:19→17:20)
[2020-10-05 06:47] LABS: Lactic Acid Reflex 1.1 mmol/L (0.7-2.1)
[2020-10-05 06:48] LABS: Basophils Percent Auto 0.5 % (0.2-1.2); Eosinophils Percent Auto 0.3 % (0-4.4); Hematocrit 25.9 % (42.0-52.0); Hemoglobin 8.3 g/dL (14.0-18.0); Immature Granulocyte Absolute 0.31 K/mm3 (0.00-0.031); Lymphocytes Absolute Auto 0.32 K/mm3 (0.9-3.2); Lymphocytes Percent Auto 5.2 % (18.3-44.2); Mean Corpuscular Hemoglobin 30.7 pg (26-34); Mean Corpuscular Volume 95.9 fl (80-100); Mean Platelet Volume 9.2 fl (7.4-10.4); Monocytes Absolute Auto 0.7 K/mm3 (0.1-0.6); Monocytes Percent Auto 11.7 % (2.6-8.5); Neutrophils Absolute Auto 4.8 K/mm3 (1.3-6.7); Neutrophils Percent Auto 77.3 % (45.5-73.1); Platelet Count Result 141 k/mm3 (150-375); Red Cell Distribution Width 15.2 % (11.5-14.5); White Blood Count 6.2 K/mm3 (4.5-10.0)
[2020-10-05 06:56] LABS: Alanine Aminotransferase 8 U/L (4-50); Albumin Level 2.1 g/dL (3.5-5.1); Alkaline Phosphatase 88 U/L (38-126); Anion Gap 7 mmol/L (8-16); Aspartate Amino Transferase 39 U/L (17-59); Bilirubin,Total 0.7 mg/dL (0.2-1.3); Blood Urea Nitrogen 17 mg/dL (9-20); Calcium 7.8 mg/dL (8.4-10.2); Carbon Dioxide 32 mmol/L (22-30); Chloride 97 mmol/L (98-107); Estimated CRCL calculation 17 ml/min; Estimated Glomerular Filt Rate 15; Glucose 91 mg/dL (65-110); Potassium 3.6 mmol/L (3.4-5.0); Sodium 136 mmol/L (137-145)
[2020-10-05 08:06] LABS: Glucose Point of Care 102 mg/dl (65-105)
[2020-10-05] MEDS: BUMETANIDE 1 MG TABLET 2 MG PO (09:13)
[2020-10-05] MEDS: MECLIZINE HCL 12.5 MG TABLET PO ×4 (09:14→21:04)
[2020-10-05] MEDS: calcitrioL 0.25 MCG CAPSULE PO (09:14)
[2020-10-05] MEDS: ASPIRIN 81 MG CHEWABLE TABLET PO ×2 (09:14→09:20)
--- NOTE | 2020-10-05 12:01 | PM.PNNEP ---
Progress Note: A&P Assessment and Plan (1) ESRD (end stage renal disease): Code(s): N18.6 - End stage renal disease Status: Chronic Assessment and Plan: the patient has end-stage renal disease. This is due to diabetes and hypertension. He is on dialysis 3 times a week. Due for dialysis tomorrow. Volume status looks better. Potassium is doing well (2) Abdominal pain: Code(s): R10.9 - Unspecified abdominal pain Status: Acute Assessment and Plan: The patient had abdominal discomfort. this is better. CT the abdomen does not show much except for some hepatic cysts cholelithiasis and signs of volume overload. PD fluid was clear. Two hundred twenty-nine white cells in the fluid. His belly pain is better. not convincing for peritonitis. Will see what cultures show (3) Volume overload: Code(s): E87.70 - Fluid overload, unspecified Status: Acute Assessment and Plan: The patient has volume overload from missing treatments. Will remove fluid today. (4) Frequent falls: Code(s): R29.6 - Repeated falls Status: Acute Assessment and Plan: The patient has had multiple falls. He fell once and broke his right arm and also cracked several ribs. Perhaps he would benefit from some physical therapy. (5) Hypertension: Code(s): I10 - Essential (primary) hypertension Status: Chronic Assessment and Plan: The patient has hypertension. Systolic in the 120 is. (6) Erythropoietin deficiency anemia: Code(s): D63.1 - Anemia in chronic kidney disease Status: Acute Assessment and Plan: The patient has anemia. He will get some Epogen today. (7) Paroxysmal atrial fibrillation: Code(s): I48.0 - Paroxysmal atrial fibrillation Status: Acute Assessment and Plan: The patient has paroxysmal atrial fibrillation. Heart rate is under good control In the 60 He has a Watchman device. (8) Renal osteodystrophy: Code(s): N25.0 - Renal osteodystrophy Status: Acute Assessment and Plan: will check a phosphorus tomorrow (9) Coronary artery 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: Code(s): I25.810 - Atherosclerosis of coronary artery bypass graft(s) without angina pectoris Status: Acute Assessment and Plan: no chest pain (10) Diabetes: Code(s): E11.9 - Type 2 diabetes mellitus without complications Status: Acute Assessment and Plan: on Accu-Cheks and sliding-scale insulin (11) Cirrhosis of liver with ascites: Qualifiers: Hepatic cirrhosis type: unspecified hepatic cirrhosis Qualified Code(s): K74.60 - Unspecified cirrhosis of liver; R18.8 - Other ascites Code(s): K74.60 - Unspecified cirrhosis of liver; R18.8 - Other ascites Status: Chronic Assessment and Plan: due to BURROWS presumptively. Subjective Date/time seen: 10/05/20 12:01 Interval history: patient is feeling better today. No shortness of breath. Exam Narrative: Exam Narrative: WDWN in NAD skin no rash head ncat lungs clear cor reg no rub abd BS+ nontender and soft ext no edema. Objective Data Vital Signs Vital Signs: Vital Signs - 24 hr 10/04/20 13:06 10/04/20 13:43 10/04/20 13:44 Temperature Pulse Rate 74 74 77 Respiratory Rate 24 H 28 H 24 H Blood Pressure 128/55 L Pulse Oximetry 99 98 97 10/04/20 13:45 10/04/20 14:00 10/04/20 14:01 Temperature Pulse Rate 75 74 70 Respiratory Rate 26 H 23 H 21 H Blood Pressure 111/59 L Pulse Oximetry 98 100 10/04/20 14:15 10/04/20 14:30 10/04/20 14:31 Temperature Pulse Rate 71 68 71 Respiratory Rate 20 25 H 24 H Blood Pressure 132/56 L Pulse Oximetry 99 10/04/20 14:45 10/04/20 15:00 10/04/20 15:01 Temperature Pulse Rate 74 65 62 Respiratory Rate 22 H 25 H 25 H Blood Pressu
[2020-10-05 12:20] LABS: Glucose Point of Care 118 mg/dl (65-105)
--- NOTE | 2020-10-05 13:11 | PM.IMPN ---
Progress Note: A&P Assessment and Plan (1) Azotemia: Code(s): R79.89 - Other specified abnormal findings of blood chemistry Status: Acute Assessment and Plan: this is the 2nd dialysis today that the patient has missed. Nephrology has been consulted. Possible dialysis tonight. The patient is somewhat lethargic. 10/05/20 13:11 patient is 70-year-old male with history of end-stage renal disease initially patient was on peritoneal dialysis and then switch over hemodialysis as scheduled before dialysis on Friday and Friday however patient was not feeling very well and missed his dialysis presented emergency department complaining just does not feel very well he denies any assess symptoms chest pain shortness of breath, nausea, vomiting fever or chills, however upon arrival patient had c/o abdominal pain and tender concerned for SBP with hx of PD, perineal fluid is collected and sent for culture. patient was seen by Nephrology and had a dialysis on 10/04, patient seen by fisheries diver and will have a dialysis tomorrow, will continue to monitor will have a PT OT evaluate the patient and further recommendation to follow. (2) Chronic kidney failure: Code(s): N18.9 - Chronic kidney disease, unspecified Status: Acute Assessment and Plan: Patient was doing peritoneal dialysis but recently received a tunneled catheter to the right upper chest and started having dialysis on Friday. The patient has missed Friday and today being Friday. Patient will require dialysis today. (3) Abdominal pain: Code(s): R10.9 - Unspecified abdominal pain Status: Acute Assessment and Plan: The patient's abdomen was warm to touch and he was very tender. I ordered a CT without contrast. Since the patient is no longer getting peritoneal dialysis doubtful that the patient would be able to have fluid drawn off of his abdomen to seeif he has spontaneous bacterial peritonitis. (4) Obstructive sleep apnea on CPAP: Code(s): G47.33 - Obstructive sleep apnea (adult) (pediatric); Z99.89 - Dependence on other enabling machines and devices Status: Acute Assessment and Plan: The patient no longer uses a CPAP. (5) Paroxysmal atrial fibrillation: Code(s): I48.0 - Paroxysmal atrial fibrillation Status: Acute Assessment and Plan: Patient has rate control. He does not appear to have any anticoagulation. (6) Hypertension: Code(s): I10 - Essential (primary) hypertension Status: Chronic Assessment and Plan: Patient is on Bumex. Continue spironolactone (7) Chronic diastolic congestive heart failure: Code(s): I50.32 - Chronic diastolic (congestive) heart failure Status: Acute Assessment and Plan: Patient is on Bumex. (8) End-stage renal disease on hemodialysis: Code(s): N18.6 - End stage renal disease; Z99.2 - Dependence on renal dialysis Status: Chronic Assessment and Plan: his dialysis on Friday and Friday and he missed today being Friday and Friday. Nephrology has been consulted. Potassium slightly high since he missed dialysis at is 5.5. (9) Anemia: Code(s): D64.9 - Anemia, unspecified Status: Acute Assessment and Plan: Patient is at his baseline. (10) Diabetes: Code(s): E11.9 - Type 2 diabetes mellitus without complications Status: Acute Assessment and Plan: Patient does not appear to be on any medication for diabetes. His blood sugars were actually low at 63. (11) Fracture: Code(s): T14.8XXA - Other injury of unspecified body region, initial encounter Status: Acute Assessment and Plan: patient has a cast to the right forearm he stated that he had broken his arm. Patient is still having some discomfort to the right arm. I was able to get to fingers underneath the of the bottom portion and the upper portio
--- NOTE | 2020-10-05 15:34 | PC.NURSE ---
All pt care, assessments and medications done by Araceli Nava RNLP with Isacc Landeros RN precepting.
[2020-10-05 18:05] LABS: Glucose Point of Care 121 mg/dl (65-105)
[2020-10-05 22:24] LABS: Glucose Point of Care 116 mg/dl (65-105)
--- NOTE | 2020-10-05 23:43 | PCRCNOTE ---
Window of time for administration has passed. See next scheduled administration.
[2020-10-06] VITALS (19 sets, daily range): BP systolic 104–148; BP diastolic 48–63; PULSE 55–86; RESP 16–24; TEMP 36.2–37.2; O2SAT 95–98; BMI 54.1
[2020-10-06] MEDS: ALBUTEROL SULFATE NEB 2.5 MG/0.5 ML INH 5 MG INHALATION ×3 (01:58→21:47)
[2020-10-06] MEDS: SEVELAMER CARBONATE 800 MG TABLET 1600 MG PO ×3 (05:37→17:25)
[2020-10-06 06:52] LABS: Hematocrit 27.6 % (42.0-52.0); Hemoglobin 8.8 g/dL (14.0-18.0); Mean Corpuscular HGB Conc 31.9 g/dl (32-36); Mean Corpuscular Hemoglobin 30.7 pg (26-34); Mean Corpuscular Volume 96.2 fl (80-100); Mean Platelet Volume 9.4 fl (7.4-10.4); Platelet Count Result 141 k/mm3 (150-375); Red Blood Count 2.87 M/mm3 (4.6-6.20); Red Cell Distribution Width 15.1 % (11.5-14.5); White Blood Count 6.3 K/mm3 (4.5-10.0)
[2020-10-06 07:05] LABS: Albumin Level 2.1 g/dL (3.5-5.1); Anion Gap 7 mmol/L (8-16); Blood Urea Nitrogen 24 mg/dL (9-20); Calcium 7.9 mg/dL (8.4-10.2); Carbon Dioxide 31 mmol/L (22-30); Chloride 97 mmol/L (98-107); Estimated CRCL calculation 20 ml/min; Estimated Glomerular Filt Rate 11; Glucose 82 mg/dL (65-110); Phosphorus 3.9 mg/dL (2.5-4.5); Potassium 3.5 mmol/L (3.4-5.0); Sodium 135 mmol/L (137-145)
[2020-10-06 08:28] LABS: Glucose Point of Care 84 mg/dl (65-105)
--- NOTE | 2020-10-06 09:50 | PC.NURSE ---
Patient to dialysis per bed.
[2020-10-06] MEDS: EPOETIN ALFA-EPBX 10,000 UNITS/ML VIAL 10000 UNITS IV PUSH (11:01)
--- NOTE | 2020-10-06 12:09 | PM.PNORT ---
Progress Note: A&P Additional Plan Patient had short arm cast placed in our office 8 days ago for distal ulna fx, he has developed a blood blister to skin just prox. and medial to upper edge of cast. cast does have good padding in this area, I think this is from pt flexing elbow and rotating wrist which is rubbing on his frail skin due to detention dialysis. Pt is being dialysed at this time,has 90 min to go. Will come back this afternoon to cut relief in cast to hope to aviod this. Have had nurse place op-site over area for protection Subjective Subjective Date/Time Seen: 10/06/20 12:09 Objective Data Vital Signs Vital Signs: Vital Signs - 24 hr 10/05/20 14:01 10/05/20 14:07 10/05/20 16:00 Temperature 36.8 C Pulse Rate 61 67 63 Respiratory Rate 18 18 16 Blood Pressure 124/47 L Pulse Oximetry 100 10/05/20 20:00 10/05/20 20:40 10/05/20 22:00 Temperature 38.1 C H 38.1 C H Pulse Rate 75 77 75 Respiratory Rate 20 20 18 Blood Pressure 124/76 124/76 Pulse Oximetry 93 95 93 10/06/20 00:00 10/06/20 01:59 10/06/20 02:06 Temperature 37.2 C Pulse Rate 67 77 82 Respiratory Rate 18 20 20 Blood Pressure 128/53 L Pulse Oximetry 95 10/06/20 04:00 10/06/20 06:00 10/06/20 09:45 Temperature 37.2 C 37.2 C 36.7 C Pulse Rate 63 63 70 Respiratory Rate 18 18 18 Blood Pressure 148/53 H 148/53 H 137/63 Pulse Oximetry 95 95 10/06/20 10:00 10/06/20 11:00 10/06/20 11:45 Temperature Pulse Rate 55 L 58 L 67 Respiratory Rate Blood Pressure 128/61 115/54 L 123/63 Pulse Oximetry Intake/Output Intake/Output: Intake & Output 10/03/20 10/04/20 10/05/20 10/06/20 23:59 23:59 23:59 23:59 Intake Total 340 750 Output Total 1999 Balance -1999 340 750 Meds/Results Medications: Active Medications Generic Name Dose Route Start Last Admin Trade Name Freq PRN Reason Stop Dose Admin Acetaminophen 650 mg 10/04/20 14:30 Acetaminophen 325 Mg Tablet PO Q4H PRN Mild Pain (1-3) or Fever Albuterol 5 mg 10/04/20 20:00 10/06/20 01:58 Albuterol Sulfate Neb 2.5 Mg/0.5 Ml Inh INHALATION 5 mg Q6HRT NOÉ Administration Albuterol 1 puff 10/04/20 20:06 Albuterol Sulfate (*Sp) Aerosol 1 Puff INHALATION Q4H PRN Shortness Of Breath Aspirin 81 mg 10/05/20 09:00 10/05/20 09:20 Aspirin 81 Mg Chewable Tablet PO 81 mg DAILY NOÉ Administration Bumetanide 2 mg 10/05/20 09:00 10/05/20 09:13 Bumetanide 1 Mg Tablet PO 2 mg DAILY NOÉ Administration Calcitriol 0.25 mcg 10/05/20 09:00 10/05/20 09:14 Calcitriol 0.25 Mcg Capsule PO 0.25 mcg DAILY NOÉ Administration Epoetin Wily-epbx 10,000 units 10/06/20 12:10 10/06/20 11:01 Epoetin Wily-Epbx 10,000 Units/Ml Vial IV PUSH 10,000 units MOWEFR NOÉ Administration Meclizine HCl 12.5 mg 10/04/20 21:00 10/05/20 21:04 Meclizine Hcl 12.5 Mg Tablet PO 12.5 mg QID NOÉ Administration Ondansetron HCl 4 mg 10/04/20 14:30 Ondansetron Inj 4 Mg/2 Ml Vial IV PUSH Q4H PRN Nausea Sevelamer Carbonate 1,600 mg 10/05/20 06:30 10/06/20 05:37 Sevelamer Carbonate 800 Mg Tablet PO 1,600 mg AC NOÉ Administration Sevelamer Carbonate 800 mg 10/04/20 20:12 Sevelamer Carbonate 800 Mg Tablet PO PRN PRN SNACKS Radiology Results: ITS Impressions Chest X-Ray 10/04/20 11:37 IMPRESSION: 1. Mild pulmonary edema. 2. Small pleural effusions. Abdomen/Pelvis CT 10/04/20 15:59 IMPRESSION: Mild right minimal left pleural effusion Right lower lobe compressive atelectasis Minimal dependent left lower lobe atelectasis Mild ascites Hepatic cysts Cholelithiasis Prostate enlargement and calcifications with probable mild associated bilateral obstruction Recent lateral right sixth through ninth rib and displaced rib fractures; subacute or old posterior left 11th rib fracture Head CT 10/04/20 16:30 IMPRESSION: 1. Punctate old left internal capsu
--- NOTE | 2020-10-06 13:29 | PM.IMPN ---
Progress Note: A&P Assessment and Plan (1) Azotemia: Code(s): R79.89 - Other specified abnormal findings of blood chemistry Status: Acute Assessment and Plan: this is the 2nd dialysis today that the patient has missed. Nephrology has been consulted. Possible dialysis tonight. The patient is somewhat lethargic. 10/06/20 13:29 patient is 70-year-old male with history of end-stage renal disease initially patient was on peritoneal dialysis and then switch over hemodialysis as scheduled before dialysis on Friday and Friday however patient was not feeling very well and missed his dialysis presented emergency department complaining just does not feel very well he denies any assess symptoms chest pain shortness of breath, nausea, vomiting fever or chills, however upon arrival patient had c/o abdominal pain and tender concerned for SBP with hx of PD, perineal fluid is collected and sent for culture. patient was seen by Nephrology and had a dialysis on 10/04, patient seen by time checker and will have a dialysis tomorrow, will continue to monitor will have a PT OT evaluate the patient and further recommendation to follow. 10/06 today patient states feeling better not as malaise and tired, patient has fracture of right ulnar and and cast was placed 7 days ago, patient has developed blood blister at edge of the cast on proximal end, was seen by orthopedic suspect due to flexing of the for and twisting of the wrist, orthopedic surgeon will cut the cast to relieve the pressure, patient will have dialysis today, there is no growth in peritoneal and ascites fluid, white counts are normal, if patient remains clinically stable will discharge the patient home tomorrow (2) Chronic kidney failure: Code(s): N18.9 - Chronic kidney disease, unspecified Status: Acute Assessment and Plan: Patient was doing peritoneal dialysis but recently received a tunneled catheter to the right upper chest and started having dialysis on Friday. The patient has missed Friday and today being Friday. Patient will require dialysis today. (3) Abdominal pain: Code(s): R10.9 - Unspecified abdominal pain Status: Acute Assessment and Plan: The patient's abdomen was warm to touch and he was very tender. I ordered a CT without contrast. Since the patient is no longer getting peritoneal dialysis doubtful that the patient would be able to have fluid drawn off of his abdomen to seeif he has spontaneous bacterial peritonitis. (4) Obstructive sleep apnea on CPAP: Code(s): G47.33 - Obstructive sleep apnea (adult) (pediatric); Z99.89 - Dependence on other enabling machines and devices Status: Acute Assessment and Plan: The patient no longer uses a CPAP. (5) Paroxysmal atrial fibrillation: Code(s): I48.0 - Paroxysmal atrial fibrillation Status: Acute Assessment and Plan: Patient has rate control. He does not appear to have any anticoagulation. (6) Hypertension: Code(s): I10 - Essential (primary) hypertension Status: Chronic Assessment and Plan: Patient is on Bumex. Continue spironolactone (7) Chronic diastolic congestive heart failure: Code(s): I50.32 - Chronic diastolic (congestive) heart failure Status: Acute Assessment and Plan: Patient is on Bumex. (8) End-stage renal disease on hemodialysis: Code(s): N18.6 - End stage renal disease; Z99.2 - Dependence on renal dialysis Status: Chronic Assessment and Plan: his dialysis on Friday and Friday and he missed today being Friday and Friday. Nephrology has been consulted. Potassium slightly high since he missed dialysis at is 5.5. (9) Anemia: Code(s): D64.9 - Anemia, unspecified Status: Acute Assessment and Plan: Patient is at his baseline. (10) Diabetes: Code(s): E11.9 - Type 2 diabetes mellitus w
--- NOTE | 2020-10-06 13:59 | PC.NURSE ---
Patient returned from dialysis per bed.
[2020-10-06] MEDS: ASPIRIN 81 MG CHEWABLE TABLET PO (14:01)
[2020-10-06] MEDS: BUMETANIDE 1 MG TABLET 2 MG PO (14:01)
[2020-10-06] MEDS: calcitrioL 0.25 MCG CAPSULE PO (14:02)
[2020-10-06] MEDS: MECLIZINE HCL 12.5 MG TABLET PO ×3 (14:02→22:25)
[2020-10-06 14:08] LABS: Glucose Point of Care 80 mg/dl (65-105)
--- NOTE | 2020-10-06 16:22 | PM.PNNEP ---
Progress Note: A&P Assessment and Plan (1) ESRD (end stage renal disease): Code(s): N18.6 - End stage renal disease Status: Chronic Assessment and Plan: the patient has end-stage renal disease. This is due to diabetes and hypertension. He is on dialysis 3 times a week. getting a tx now. doing well (2) Abdominal pain: Code(s): R10.9 - Unspecified abdominal pain Status: Acute Assessment and Plan: The patient had abdominal discomfort. this is resolved. CT the abdomen does not show much except for some hepatic cysts cholelithiasis and signs of volume overload. PD fluid was clear. culture negative (3) Volume overload: Code(s): E87.70 - Fluid overload, unspecified Status: Acute Assessment and Plan: improved. (4) Frequent falls: Code(s): R29.6 - Repeated falls Status: Acute Assessment and Plan: The patient has had multiple falls. He fell once and broke his right arm and also cracked several ribs. Perhaps he would benefit from some physical therapy. (5) Hypertension: Code(s): I10 - Essential (primary) hypertension Status: Chronic Assessment and Plan: The patient has hypertension. Systolic in the 120 is. (6) Erythropoietin deficiency anemia: Code(s): D63.1 - Anemia in chronic kidney disease Status: Acute Assessment and Plan: The patient has anemia. He will get some Epogen today. (7) Paroxysmal atrial fibrillation: Code(s): I48.0 - Paroxysmal atrial fibrillation Status: Acute Assessment and Plan: The patient has paroxysmal atrial fibrillation. Heart rate is under good control In the 60 He has a Watchman device. 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: Code(s): I25.810 - Atherosclerosis of coronary artery bypass graft(s) without angina pectoris Status: Acute Assessment and Plan: no chest pain (10) Diabetes: Code(s): E11.9 - Type 2 diabetes mellitus without complications Status: Acute Assessment and Plan: on Accu-Cheks and sliding-scale insulin (11) Cirrhosis of liver with ascites: Qualifiers: Hepatic cirrhosis type: unspecified hepatic cirrhosis Qualified Code(s): K74.60 - Unspecified cirrhosis of liver; R18.8 - Other ascites Code(s): K74.60 - Unspecified cirrhosis of liver; R18.8 - Other ascites Status: Chronic Assessment and Plan: due to BURROWS presumptively. Subjective Date/time seen: 10/06/20 16:22 Interval history: patient is feeling better today. No shortness of breath. he is on HD. michelle it well so far. removing about 3 L as michelle seen at 11:45am Exam Narrative: Exam Narrative: WDWN in NAD skin no rash or sq nodules head ncat lungs clear cor reg no rub abd BS+ nontender and soft. no pain at all ext no edema. Objective Data Vital Signs Vital Signs: Vital Signs - 24 hr 10/05/20 20:00 10/05/20 20:40 10/05/20 22:00 Temperature 38.1 C H 38.1 C H Pulse Rate 75 77 75 Respiratory Rate 20 20 18 Blood Pressure 124/76 124/76 Pulse Oximetry 93 95 93 10/06/20 00:00 10/06/20 01:59 10/06/20 02:06 Temperature 37.2 C Pulse Rate 67 77 82 Respiratory Rate 18 20 20 Blood Pressure 128/53 L Pulse Oximetry 95 10/06/20 04:00 10/06/20 06:00 10/06/20 09:45 Temperature 37.2 C 37.2 C 36.7 C Pulse Rate 63 63 70 Respiratory Rate 18 18 18 Blood Pressure 148/53 H 148/53 H 137/63 Pulse Oximetry 95 95 10/06/20 10:00 10/06/20 11:00 10/06/20 11:45 Temperature Pulse Rate 55 L 58 L 67 Respiratory Rate Blood Pressure 128/61 115/54 L 123/63 Pulse Oximetry 10/06/20 12:30 10/06/20 13:00 10/06/20 13:30 Temperature Pulse
[2020-10-06 17:21] LABS: Glucose Point of Care 104 mg/dl (65-105)
[2020-10-06 22:15] LABS: Glucose Point of Care 114 mg/dl (65-105)
[2020-10-07 06:00] VITALS: BP 106/44; PULSE 52; RESP 18; TEMP 37; O2SAT 100
[2020-10-07] MEDS: SEVELAMER CARBONATE 800 MG TABLET 1600 MG PO (06:03)
[2020-10-07 07:15] LABS: Hematocrit 25.9 % (42.0-52.0); Hemoglobin 8.2 g/dL (14.0-18.0); Mean Corpuscular HGB Conc 31.7 g/dl (32-36); Mean Corpuscular Hemoglobin 30.7 pg (26-34); Mean Platelet Volume 9.7 fl (7.4-10.4); Platelet Count Result 125 k/mm3 (150-375); Red Blood Count 2.67 M/mm3 (4.6-6.20); Red Cell Distribution Width 15.1 % (11.5-14.5); White Blood Count 8.7 K/mm3 (4.5-10.0)
[2020-10-07 07:34] LABS: Albumin Level 1.9 g/dL (3.5-5.1); Anion Gap 1 mmol/L (8-16); Blood Urea Nitrogen 13 mg/dL (9-20); Calcium 7.9 mg/dL (8.4-10.2); Carbon Dioxide 29 mmol/L (22-30); Chloride 105 mmol/L (98-107); Estimated CRCL calculation 19 ml/min; Estimated Glomerular Filt Rate 17; Glucose 98 mg/dL (65-110); Phosphorus 2.7 mg/dL (2.5-4.5); Potassium 3.6 mmol/L (3.4-5.0); Sodium 135 mmol/L (137-145)
[2020-10-07 07:48] VITALS: PULSE 57; RESP 20; O2SAT 97
[2020-10-07] MEDS: ALBUTEROL SULFATE NEB 2.5 MG/0.5 ML INH 5 MG INHALATION (07:48)
[2020-10-07 07:56] VITALS: PULSE 56; RESP 20
[2020-10-07 08:15] LABS: Glucose Point of Care 100 mg/dl (65-105)
--- NOTE | 2020-10-07 08:39 | PM.PNNEP ---
Progress Note: A&P Assessment and Plan (1) ESRD (end stage renal disease): Code(s): N18.6 - End stage renal disease Status: Chronic Assessment and Plan: the patient has end-stage renal disease. This is due to diabetes and hypertension. He is on dialysis 3 times a week. due for another treatment on Friday (2) Abdominal pain: Code(s): R10.9 - Unspecified abdominal pain Status: Acute Assessment and Plan: The patient had abdominal discomfort. this is resolved. CT the abdomen does not show much except for some hepatic cysts cholelithiasis and signs of volume overload. PD fluid was clear. culture negative (3) Volume overload: Code(s): E87.70 - Fluid overload, unspecified Status: Acute Assessment and Plan: improved. (4) Frequent falls: Code(s): R29.6 - Repeated falls Status: Acute Assessment and Plan: The patient has had multiple falls. He fell once and broke his right arm and also cracked several ribs. Perhaps he would benefit from some physical therapy. (5) Hypertension: Code(s): I10 - Essential (primary) hypertension Status: Chronic Assessment and Plan: The patient has hypertension. Systolic in the 120 is. (6) Erythropoietin deficiency anemia: Code(s): D63.1 - Anemia in chronic kidney disease Status: Acute Assessment and Plan: The patient has anemia. He will get some Epogen today. (7) Paroxysmal atrial fibrillation: Code(s): I48.0 - Paroxysmal atrial fibrillation Status: Acute Assessment and Plan: The patient has paroxysmal atrial fibrillation. Heart rate is under good control In the 60 He has a Watchman device. 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: Code(s): I25.810 - Atherosclerosis of coronary artery bypass graft(s) without angina pectoris Status: Acute Assessment and Plan: no chest pain (10) Diabetes: Code(s): E11.9 - Type 2 diabetes mellitus without complications Status: Acute Assessment and Plan: on Accu-Cheks and sliding-scale insulin (11) Cirrhosis of liver with ascites: Qualifiers: Hepatic cirrhosis type: unspecified hepatic cirrhosis Qualified Code(s): K74.60 - Unspecified cirrhosis of liver; R18.8 - Other ascites Code(s): K74.60 - Unspecified cirrhosis of liver; R18.8 - Other ascites Status: Chronic Assessment and Plan: due to BURROWS presumptively. Subjective Date/time seen: 10/07/20 08:39 Interval history: patient is feeling better today. Eager for discharge. Exam Narrative: Exam Narrative: WDWN in NAD skin no rash or sq nodules head ncat lungs clear to auscultation cor reg no rub abd BS+ nontender and soft. no pain at all ext no edema. Objective Data Vital Signs Vital Signs: Vital Signs - 24 hr 10/06/20 09:45 10/06/20 10:00 10/06/20 11:00 Temperature 36.7 C Pulse Rate 70 55 L 58 L Respiratory Rate 18 Blood Pressure 137/63 128/61 115/54 L Pulse Oximetry 10/06/20 11:45 10/06/20 12:30 10/06/20 13:00 Temperature Pulse Rate 67 60 66 Respiratory Rate Blood Pressure 123/63 105/53 L 104/56 L Pulse Oximetry 10/06/20 13:30 10/06/20 13:45 10/06/20 14:00 Temperature 36.8 C 36.7 C Pulse Rate 68 59 L 66 Respiratory Rate 18 16 Blood Pressure 106/57 L 139/63 121/48 L Pulse Oximetry 97 10/06/20 15:45 10/06/20 15:53 10/06/20 21:49 Temperature Pulse Rate 86 68 60 Respiratory Rate 20 20 24 H Blood Pressure Pulse Oximetry 98 10/06/20 21:54 10/06/20 22:00 10/07/20 06:00 Temperature 36.2 C L 37.0 C Pulse Rate 64 60 52 L Respiratory Rate 20 18 18 Blood Pressure 133/48 L 106/44 L
[2020-10-07] MEDS: BUMETANIDE 1 MG TABLET 2 MG PO (08:50)
[2020-10-07] MEDS: ASPIRIN 81 MG CHEWABLE TABLET PO (08:50)
[2020-10-07] MEDS: calcitrioL 0.25 MCG CAPSULE PO (08:51)
[2020-10-07] MEDS: MECLIZINE HCL 12.5 MG TABLET PO (08:51)
--- NOTE | 2020-10-07 09:41 | PM.DS ---
DS: Admitting Diagnosis Admitting Diagnosis Chief Complaint: Shortness of breath and missed dialysis DS: Discharge Diagnosis Discharge Diagnosis (1) Azotemia: Code(s): R79.89 - Other specified abnormal findings of blood chemistry Status: Acute Assessment and Plan: this is the 2nd dialysis today that the patient has missed. Nephrology has been consulted. Possible dialysis tonight. The patient is somewhat lethargic. 10/06/20 13:29 patient is 70-year-old male with history of end-stage renal disease initially patient was on peritoneal dialysis and then switch over hemodialysis as scheduled before dialysis on Friday and Friday however patient was not feeling very well and missed his dialysis presented emergency department complaining just does not feel very well he denies any assess symptoms chest pain shortness of breath, nausea, vomiting fever or chills, however upon arrival patient had c/o abdominal pain and tender concerned for SBP with hx of PD, perineal fluid is collected and sent for culture. patient was seen by Nephrology and had a dialysis on 10/04, patient seen by equity structurer and will have a dialysis tomorrow, will continue to monitor will have a PT OT evaluate the patient and further recommendation to follow. 10/06 today patient states feeling better not as malaise and tired, patient has fracture of right ulnar and and cast was placed 7 days ago, patient has developed blood blister at edge of the cast on proximal end, was seen by orthopedic suspect due to flexing of the for and twisting of the wrist, orthopedic surgeon will cut the cast to relieve the pressure, patient will have dialysis today, there is no growth in peritoneal and ascites fluid, white counts are normal, if patient remains clinically stable will discharge the patient home tomorrow (2) Chronic kidney failure: Code(s): N18.9 - Chronic kidney disease, unspecified Status: Acute Assessment and Plan: Patient was doing peritoneal dialysis but recently received a tunneled catheter to the right upper chest and started having dialysis on Friday. The patient has missed Friday and today being Friday. Patient will require dialysis today. (3) Abdominal pain: Code(s): R10.9 - Unspecified abdominal pain Status: Acute Assessment and Plan: The patient's abdomen was warm to touch and he was very tender. I ordered a CT without contrast. Since the patient is no longer getting peritoneal dialysis doubtful that the patient would be able to have fluid drawn off of his abdomen to seeif he has spontaneous bacterial peritonitis. (4) Obstructive sleep apnea on CPAP: Code(s): G47.33 - Obstructive sleep apnea (adult) (pediatric); Z99.89 - Dependence on other enabling machines and devices Status: Acute Assessment and Plan: The patient no longer uses a CPAP. (5) Paroxysmal atrial fibrillation: Code(s): I48.0 - Paroxysmal atrial fibrillation Status: Acute Assessment and Plan: Patient has rate control. He does not appear to have any anticoagulation. (6) Hypertension: Code(s): I10 - Essential (primary) hypertension Status: Chronic Assessment and Plan: Patient is on Bumex. Continue spironolactone (7) Chronic diastolic congestive heart failure: Code(s): I50.32 - Chronic diastolic (congestive) heart failure Status: Acute Assessment and Plan: Patient is on Bumex. (8) End-stage renal disease on hemodialysis: Code(s): N18.6 - End stage renal disease; Z99.2 - Dependence on renal dialysis Status: Chronic Assessment and Plan: his dialysis on Friday and Friday and he missed today being Friday and Friday. Nephrology has been consulted. Potassium slightly high since he missed dialysis at is 5.5. (9) Anemia: Code(s): D64.9 - Anemia, unspecified Status: Acute Assess
[2020-10-09 14:22] LABS: Hepatitis B Core Ab Total Nonreactive (Nonreactive)
== END 2020-10-07 11:00 | disposition home health service (06) ==
LOC: ANHED 14:06 → ANH2MED 17:12 → ANH3MEDSUR 20:33
PROVIDERS: Emergency Medicine; Internal Medicine Nephrology; Nurse Practitioner; Admitting Provider Family Medicine; Emergency Provider Emergency Medicine; PCP Family Medicine; Visit Provider Family Medicine
DX: R79.89 Other specified abnormal findings of blood chemistry (principal); R06.02 Shortness of breath; I13.2 Hypertensive heart and chronic kidney disease with heart failure and with stage 5 chronic kidney disease, or end stage renal disease; N18.6 End stage renal disease; E11.22 Type 2 diabetes mellitus with diabetic chronic kidney disease; I50.32 Chronic diastolic (congestive) heart failure; Z99.2 Dependence on renal dialysis; S52.691D Other fracture of lower end of right ulna, subsequent encounter for closed fracture with routine healing; R10.9 Unspecified abdominal pain; E87.70 Fluid overload, unspecified; R29.6 Repeated falls; D63.1 Anemia in chronic kidney disease; I48.0 Paroxysmal atrial fibrillation; R25.0 Abnormal head movements; I25.810 Atherosclerosis of coronary artery bypass graft(s) without angina pectoris; K74.60 Unspecified cirrhosis of liver; R18.8 Other ascites; G47.33 Obstructive sleep apnea (adult) (pediatric); Z95.818 Presence of other cardiac implants and grafts; Z87.891 Personal history of nicotine dependence; Z79.4 Long term (current) use of insulin; Z99.89 Dependence on other enabling machines and devices
CPT/HCPCS: 36415; 70450; 71046; 74176; 80048; 80053; 80069; 82948; 83605; 84443; 85025; 85027; 86704; 86706; 87070; 87075; 87205; 87340; 88108; 89051; 93005; 94640; 96374; 96375; 96376; 99285; A9270; G0257; G0378; J7030; Q5106

== ENCOUNTER 2021-05-15 12:39 | Outpatient (CLI) | payer MEDICARE, MEDICAID, SELFPAY ==
--- NOTE | 2021-05-15 12:47 | ECHO_ITS ---
Patient Info Name: Naldo Lowry Age: 71 years : 1950 Gender: Male Ht: 70 in Wt: 186 lbs BSA: 2.05 m2 HR: 55 bpm BP: 168 / 73 mmHg Heart Rhythm: Atrial Fibrillation Technical Quality: Fair Exam Date: 05/15/2021 1:01 PM Exam Location: [facility] Patient Status: Outpatient Admit Date: 05/15/2021 Staff Ordering Physician: Peter Pollack DO Histology Technician: Shelley Rosado RDCS Attending Provider: Peter Pollack DO Referring Physician: Ranjeet MARION; Exam Type: CA echo doppler color flow Study Info Indications I50.32 - Chronic diastolic (congestive) heart failure Complete two-dimensional, color flow and Doppler transthoracic echocardiogram is performed. Summary 1. Complete two-dimensional, color flow and Doppler transthoracic echocardiogram is performed. 2. Left ventricular chamber dimension is normal. 3. Left ventricular systolic function is normal, estimated at 60-65%. 4. There is mildly increased left ventricular wall thickness. 5. The left ventricular diastolic function is abnormal. 6. E/e' 26 is elevated. 7. Global longitudinal strain is abnormal at -12.0%. 8. Atrial fibrillation. 9. Right ventricular systolic function is moderately reduced and with abnormal TAPSE 1.0 cm. 10. Right ventricular chamber dimension is mildly enlarged. 11. Left atrial chamber dimension is moderately enlarged. 12. Right atrial chamber dimension is moderately enlarged. 13. There is moderate aortic valve sclerosis. 14. There is mild aortic valve regurgitation. 15. The mitral valve has moderately calcified annulus. 16. There is trace tricuspid valve regurgitation. 17. Severe pulmonary hypertension, estimated pulmonary arterial systolic pressure is 75 mmHg. 18. The aortic root size at the sinus of Valsalva is mildly dilated at 4.3 cm. 19. Dilated inferior vena cava with <50% collapse upon inspiration consistent with significantly elevated right atrial pressure, 15 mmHg. Left Ventricle E/e' 26 is elevated. Atrial fibrillation. Global longitudinal strain is abnormal at -12.0%. Left ventricular chamber dimension is normal. Left ventricular systolic function is normal, estimated at 60-65%. There is mildly increased left ventricular wall thickness. The left ventricular diastolic function is abnormal. Right Ventricle Right ventricular systolic function is moderately reduced and with abnormal TAPSE 1.0 cm. Right ventricular chamber dimension is mildly enlarged. Left Atria Left atrial chamber dimension is moderately enlarged. Right Atria Right atrial chamber dimension is moderately enlarged. Aortic Valve The aortic valve is trileaflet. There is moderate aortic valve sclerosis. There is no aortic valve stenosis. There is mild aortic valve regurgitation. Pulmonic Valve There is no pulmonic regurgitation. Mitral Valve The mitral valve has moderately calcified annulus. There is no mitral valve stenosis. There is no mitral valve regurgitation. Tricuspid Valve There is trace tricuspid valve regurgitation. Severe pulmonary hypertension, estimated pulmonary arterial systolic pressure is 75 mmHg. Pericardium/Pleural There is no pericardial effusion. Inferior Vena Cava Dilated inferior vena cava with <50% collapse upon inspiration consistent with significantly elevated right atrial pressure, 15 mmHg. Aorta The aortic root size at the sinus of Valsalva is mildly dilated at 4.3 cm. Left Ventricular Outflow Tract
== END 2021-05-15 12:40 | disposition home or self-care (01) ==
LOC: ANHCARD 12:41
PROVIDERS: PCP Family Medicine; Visit Provider Internal Medicine Cardiovascular Disease
DX: I50.32 Chronic diastolic (congestive) heart failure (principal); I08.3 Combined rheumatic disorders of mitral, aortic and tricuspid valves
CPT/HCPCS: 93306

== ENCOUNTER 2021-11-15 11:47 | Outpatient (CLI) | payer OTHER, SELFPAY ==
--- NOTE | ~2021-11-15 | US_ITS ---
EXAMINATION: US venous doppler [facility] DATE: 11/15/2021 12:22 INDICATION: Left lower limb pain TECHNIQUE: Plunkett scale images without and with compression and Doppler images of the left lower extrem ity veins were obtained. COMPARISON: 11/07/2019 FINDINGS: The left common femoral vein, profunda femoral vein, femoral vein, popliteal vein, peroneal trunk, posterior tibial veins, and greater saphenous vein are patent. IMPRESSION: 1. Patent left lower extremity veins. No evidence of deep venous thrombosis. Reviewed, dictated and finalized at location A.
== END 2021-11-15 11:48 | disposition home or self-care (01) ==
PROVIDERS: PCP Family Medicine; Visit Provider Family Medicine
DX: M79.605 Pain in left leg (principal)
CPT/HCPCS: 93971

== ENCOUNTER 2022-03-15 06:49 | Inpatient (IN) | payer MEDICARE, MEDICAID, SELFPAY ==
[2022-03-15] VITALS (16 sets, daily range): BP systolic 105–178; BP diastolic 51–72; PULSE 51–65; RESP 16–22; TEMP 36–36.8; O2SAT 97–100
--- NOTE | ~2022-03-15 | CT_ITS ---
EXAMINATION: CT brain wo con DATE: 03/23/2022 18:08 INDICATION: confusion . TECHNIQUE: Computed tomography (CT) of the head was performed without intravenous contrast. The mA wa s adjusted according to patient size. Iterative reconstruction technique was employed. The dose-lengt h product was 605.33 mGy-cm. COMPARISON: 10/04/2020. FINDINGS: No acute intracranial hemorrhage or extra-axial fluid collection. No hydrocephalus, mass, or herniation. No acute ischemic infarct. Unremarkable dural venous sinus attenuation. No acute osseous abnormality. The aerated spaces are clear. Moderate atrophy and chronic white matter change. Atherosclerotic intracranial calcification. Left le ns replacement. IMPRESSION: No acute intracranial process. Reviewed, dictated and finalized at location K. GER MARKET RESEARCH
--- NOTE | ~2022-03-15 | XR_ITS ---
Portable chest x-ray Comparison: 03/15/2022 Clinical History: Covid 19 Findings: Stable right-sided central venous line present. There is elevation of the right hemidiaphr agm with small right pleural effusion and patchy right basilar and right midlung airspace disease. Le ft lung is essentially clear. Cardiomediastinal silhouette is stable. Bones and soft tissues are unr emarkable. Impression: Small right pleural effusion. Right basilar and midlung atelectasis/pulmonary edema versus possibly pneumonia. Correlate clinically . Elevation of right hemidiaphragm. Stable support line. Reviewed, dictated and finalized at location . PACKER Impression: Small right pleural effusion. Right basilar and midlung atelectasis/pulmonary edema versus possibly pneumonia . Correlate clinically. Elevation of right hemidiaphragm. Stable support line.
--- NOTE | ~2022-03-15 | XR_ITS ---
Portable chest x-ray Comparison: 10/04/2020 Clinical History: Shortness of breath Findings: Stable right-sided central venous line. Stable elevation right hemidiaphragm. Probable min imal right basilar atelectasis. Cardiomediastinal silhouette is stable. Bones and soft tissues are u nremarkable. Impression: Stable elevation right hemidiaphragm with probable minimal right basilar atelectasis. Stable support line. Reviewed, dictated and finalized at location . R REGISTRAR Impression: Stable elevation right hemidiaphragm with probable minimal right basilar atelec tasis. Stable support line.
--- NOTE | ~2022-03-15 | US_ITS ---
EXAMINATION: US arterial ankle brachial ind DATE: 03/16/2022 13:43 INDICATION: Peripheral vascular disease. TECHNIQUE: Segmental pressures and plethysmographic and Doppler waveforms of the brachial and lower e xtremity arteries were obtained. COMPARISON: None. FINDINGS: Right brachial artery pressure is 158 mm Hg. Left brachial artery pressure was not measured due to th e dialysis graft. The right ankle-brachial index (MERLENE) could not be measured due to inability to cuff occlude the arter ies (normal >= 0.9-1.0). The right great toe-brachial index (TBI) is 0.77 (normal >= 0.65). Arterial Doppler waveforms are biphasic at the ankle. The left MERLENE could not be measured due to inability to cuff occlude the arteries. The left TBI is 0.4 2. Arterial Doppler waveforms are biphasic at the ankle. IMPRESSION: 1. Decreased left TBI, consistent with left-sided arterial occlusive disease. 2. Nondiagnostic ABIs. Reviewed, dictated and finalized at location A. ENGINEERING SUPERVISOR
--- NOTE | ~2022-03-15 | US_ITS ---
EXAMINATION: US venous doppler [facility] DATE: 03/20/2022 22:54 INDICATION: edema . TECHNIQUE: Grayscale images without and with compression and Doppler images of the bilateral lower ex tremity veins were obtained. COMPARISON: None FINDINGS: The right common femoral vein, profunda (deep) femoral vein, femoral vein, popliteal vein, peroneal v ein, posterior tibial veins, gastrocnemius vein, and greater saphenous vein are patent. Subcutaneous edema. The left common femoral vein, profunda femoral vein, femoral vein, popliteal vein, peroneal vein, pos terior tibial veins, gastrocnemius vein, and greater saphenous vein are patent. Subcutaneous edema. IMPRESSION: 1. Patent bilateral lower extremity veins. No evidence of deep venous thrombosis. Reviewed, dictated and finalized at location K. NEER INTERN IMPRESSION: 1. Patent bilateral lower extremity veins. No evidence of deep venous thrombos is.
--- NOTE | 2022-03-15 07:19 | ECG_ITS ---
Measurements Intervals [place] Rate: 52 P: [place]: 0 QRS: -67 QRSD: 108 T: 133 QT: 439 QTc: 410 Interpretive Statements ATRIAL FIBRILLATION WITH SLOW VENTRICULAR RESPONSE LOW QRS VOLTAGE IN EXTREMITY LEADS [QRS DEFLECTION < 0.5 mV IN LIMB LEADS] NONSPECIFIC INTRAVENTRICULAR CONDUCTION DELAY/INCOMPLETE LEFT BUNDLE BRANCH BLOCK COMPARED TO ECG 10/04/2020 11:21:25 NO SIGNIFICANT CHANGES Electronically Signed On 03-15-2022 14:47:59 ASSISTANT PROFESSOR OF DRAMA by Parth Morgan M.D.
[2022-03-15 07:42] LABS: Alanine Aminotransferase 19 U/L (6-50); Albumin Level 3.3 g/dL (3.5-5.1); Alkaline Phosphatase 105 U/L (38-126); Anion Gap 13 mmol/L (8-16); Aspartate Amino Transferase 35 U/L (17-59); Basophils Percent Auto 0.4 % (0.2-1.2); Bilirubin,Total 1.6 mg/dL (0.2-1.3); Blood Urea Nitrogen 69 mg/dL (9-20); Calcium 7.8 mg/dL (8.4-10.2); Carbon Dioxide 24 mmol/L (22-30); Chloride 89 mmol/L (98-107); Eosinophils Percent Auto 0.2 % (0-4.4); Estimated Glomerular Filt Rate 6; Glucose 94 mg/dL (65-110); Hematocrit 28.5 % (42.0-52.0); Hemoglobin 9.5 g/dL (14.0-18.0); Immature Granulocyte Absolute 0.09 K/mm3 (0.00-0.031); Immature Granulocyte Percent A 1.9 % (0-0.5); Immature Platelet Fraction Pct 2.4 % (0.9-11.2); Lymphocytes Absolute Auto 0.28 K/mm3 (0.9-3.2); Lymphocytes Percent Auto 5.8 % (18.3-44.2); Mean Corpuscular HGB Conc 33.3 g/dl (32-36); Mean Corpuscular Hemoglobin 31.4 pg (26-34); Mean Corpuscular Volume 94.1 fl (80-100); Mean Platelet Volume 9.4 fl (7.4-10.4); Monocytes Absolute Auto 0.7 K/mm3 (0.1-0.6); Monocytes Percent Auto 15.1 % (2.6-8.5); Neutrophils Absolute Auto 3.7 K/mm3 (1.3-6.7); Neutrophils Percent Auto 76.6 % (45.5-73.1); Platelet Count Result 81 k/mm3 (150-375); Red Blood Count 3.03 M/mm3 (4.6-6.20); Red Cell Distribution Width 14.7 % (11.5-14.5); Sodium 126 mmol/L (137-145); White Blood Count 4.8 K/mm3 (4.5-10.0)
[2022-03-15 07:53] LABS: INR 1.4
--- NOTE | 2022-03-15 09:20 | ED.WEAKNESS ---
HPI - Weakness General Chief complaint: Weakness Stated complaint: weakness, COVID + (03/12) Time Seen by Provider: 03/15/22 07:10 Source: patient Mode of arrival: EMS Limitations: no limitations History of Present Illness HPI Narrative: 71-year-old with ESRD on hemodialysis Friday was brought in from [facility] with complaints of marked weakness for past few days. Patient states that he missed 2 of his hemodialysis appointment. Patient states that he was diagnosed with COVID on 03/12/2022. He presently denies any chest pain, cough or shortness of breath. Denies any nausea or vomiting or abdominal pain. MD Complaint: generalized weakness Onset (ago): day(s) (1) Duration: constant Location: generalized Exacerbating factors: none Associated symptoms: denies other symptoms Related Data Home Medications Medication Instructions Recorded Confirmed aspirin 81 mg chewable tablet 81 mg PO DAILY 05/24/19 03/20/21 (Aspirin Childrens) bumetanide 2 mg tablet 2 mg PO DAILY 09/06/19 03/20/21 bumetanide 2 mg tablet mg 03/15/22 meclizine 25 mg tablet 25 mg PO TID PRN Dizziness 03/15/22 multivitamin with folic acid 400 tablet PO 03/15/22 mcg tablet (Daily-Trent (with folic acid)) parenteral amino acid 20% no.1 ea 03/15/22 (Prosol 20 % intravenous solution) sevelamer carbonate 800 mg tablet 2 mg TID 03/15/22 Allergies Allergy/AdvReac Type Severity Reaction Status Date / Time codeine Allergy Unknown RASH/BLISTE Verified 03/20/21 15:05 RS Review of Systems Review of Systems: All systems reviewed & are unremarkable except as noted in HPI and below Constitutional: Constitutional: Reports no additional constitutional complaints Eyes: Eyes: Reports no additional eye complaints ENT: Reports system reviewed and no additional complaints, except as documented Cardiovascular: Cardiovascular: Reports no additional cardiovascular complaints Respiratory: Respiratory: Reports no additional respiratory complaints Gastrointestinal: Gastrointestinal: Reports no additional gastrointestinal complaints Musculoskeletal: Musculoskeletal: Reports no additional musculoskeletal complaints Integumentary/Breasts: Skin/Breast: Reports system reviewed and no additional complaints, except as docu Neurologic: Reports system reviewed and no additional complaints, except as documented [facility] Past Medical History Medical History Chronic anemia Chronic diastolic congestive heart failure Echocardiogram in September 2019 showed normal left ventricular size and function with an ejection fraction estimated at 60 to 65% with abnormal diastolic function, moderate biatrial enlargement, mild aortic valve sclerosis, moderate aortic valve regurgitation, and trace mitral and tricuspid valve regurgitation. Chronic obstructive pulmonary disease Cirrhosis of liver with ascites Attributed to BURROWS however he has never had a liver biopsy. Coronary artery disease Status post 7 vessel CABG in 2007. No definite infarct or ischemia on nuclear stress test in September 2019. Diabetes Diet-controlled type 2 diabetes mellitus End-stage renal disease on peritoneal dialysis tunneled dialysis catheter right upper chest. Erythropoietin deficiency anemia Fracture Gastroesophageal reflux disease GI bleed March 2014, November 2017, and more recently suspected occult GI loss in September 2019. Hyperlipidemia Hypertension Left bundle branch block Obstructive sleep apnea on CPAP The patient is supposed to use BiPAP but rarely uses it Paroxysmal atrial fibrillation not on long-term anticoagulation given history of GI bleed. Status post watchman left atrial appendage closure device insertion. Peripheral arterial disease Status post abdominal aortic aneurysm repair. Presence of Watchman left atrial appendage closure device Pulmonary hypertension Moderate pulmonary hypertension with an mikki
[2022-03-15 11:19] LABS: Hepatitis B Surface Antigen Negative (Negative)
[2022-03-15 11:37] LABS: Hepatitis B Surface Anti Res Negative
--- NOTE | 2022-03-15 13:46 | P.PNNP_ITS ---
Progress Note: A&P Assessment and Plan (1) ESRD (end stage renal disease): Code(s): N18.6 - End stage renal disease Status: Chronic Assessment and Plan: * HD today and continue M/W/ schedule while hospitalized * last HD session was a week ago (03/08/22) * follow electrolytes, volume status, and clearance FULL CONSULT TO FOLLOW Subjective Date/time seen: 03/15/22 13:46 Tolerating hemodialysis treatment in the ICU at the time of my visit (seen on HD at 1:30PM); no apparent distress voiced; still feels weak but no other acute complaints voiced. Exam Narrative: General: WD/WN male in NAD Heart: normal S1 and S2; no rub Lungs: clear anteriorly but decreased at bases Abdomen: soft, nontender, nondistended, positive bowel sounds Extremities: no cyanosis or clubbing; trace edema Skin: warm and dry Objective Data Vital Signs Vital Signs: Vital Signs Temp Pulse Resp BP Pulse Ox O2 Del Method O2 Flow Rate 03/15/22 12:24 55 L 16 151/61 H 97 03/15/22 09:00 51 L 16 156/60 H 100 03/15/22 08:00 52 L 16 158/59 H 98 03/15/22 06:53 98.1 F 22 H 173/66 H 100 Nasal Cannula 2 Meds/Results Medications: Active Medications Generic Name Dose Route Start Last Admin Trade Name Freq PRN Reason Stop Dose Admin Acetaminophen 650 mg 03/15/22 09:33 Acetaminophen 325 Mg Tablet PO Q4H PRN Mild Pain (1-3) or Fever Albuterol 5 mg 03/15/22 14:00 Albuterol Sulfate Neb 2.5 Mg/3 Ml Inh INHALATION Q6HRT [facility] Epoetin Wily-epbx 10,000 units 03/15/22 23:46 Epoetin Wily-Epbx 10,000 Units/Ml Vial IV PUSH 03/15/22 23:47 ONCE ONE Albumin Human 50 mls @ 999 mls/hr 03/15/22 12:45 Albutein IVPB 03/16/22 12:44 Q10M PRN HYPOTENSION Ipratropium [place] 0.5 mg 03/15/22 14:00 Ipratropium Br 0.02% Inh Soln 0.5 Mg/2.5 Ml Vial INHALATION Q6HRT [facility] Radiology Results: ITS Impressions Chest X-Ray 03/15/22 08:10 Impression: Stable elevation right hemidiaphragm with probable minimal right basilar atelectasis. Stable support line. Labs Labs: Laboratory Tests 03/15/22 07:24 03/15/22 07:24 Quality Patient seen/evaluated on hemodialysis treatment ([id number]).
--- NOTE | 2022-03-15 13:57 | PC.NURSE ---
This patient, Naldo Lowry, was admitted to 3 Med Surg Room 320-01. Patient/family oriented to hospital policies and general routines including ID bracelet, bed and alarms, visiting hours, pain management, procedures, bathroom and other care routines, personal items, smoking policy, room service/diet, and visiting hours. Information on how to activate the Rapid Response Team has been discussed. Patient/Family are encouraged to report perceived risks to care and to ask questions if they do not understand what they are told or what they should do.
--- NOTE | 2022-03-15 13:57 | PC.NURSE ---
Pt was taken to ICU room 12 for dialysis due to being covid positive directly after being brought to the floor.
[2022-03-15] MEDS: SODIUM CHLORIDE 0.9% IV 1,000 ML 999 ML IV CONT (15:47)
[2022-03-15] MEDS: EPOETIN ALFA-EPBX 10,000 UNITS/ML VIAL 10000 UNITS IV PUSH (15:47)
--- NOTE | 2022-03-15 17:43 | PC.NURSE ---
Pt returned from dialysis at 1720.
--- NOTE | 2022-03-15 19:05 | PM.IMHP ---
H&P: HPI History of Present Illness Date/Time: 03/15/22 19:05 Chief Complaint: Weakness and COVID Narrative: This is a 71-year-old male patient who came from [facility]. The patient has end-stage renal disease and is on dialysis Friday. However he was unable to receive dialysis this week due to his COVID. Last dialysis was on 03/08/2022. The patient was diagnosed with COVID on 03/12/2022. The patient denies any symptoms of COVID. He does not have a fever chills or any cough for shortness of breath. He just has generalized weakness. Nephrology was consulted today. And he did have dialysis performed today. The patient stated he just feels worn out. His chest x-ray was read as stable elevation right hemo diaphragm with probable minimal right basilar atelectasis. His H&H is 9.5 and 28.5. His sodium is 126 today. BUN is 69 and creatinine 9.2. Troponin 0.190. The patient denies any chest pain. Patient chronically has an elevated troponin as he has dialysis however this is elevated more than his baseline. Patient's EKG was read as atrial fibrillation with slow ventricular response. The patient was given 3 L of fluid and albumin. The patient is being admitted to observation status on the date of service of 03/15/2022. Review of Systems Review of Systems: See HPI All systems reviewed & are unremarkable except as noted in HPI and below Constitutional: Constitutional: Reports as per HPI and Reports no additional constitutional complaints Eyes: Eyes: Reports as per HPI and Reports no additional eye complaints ENT: Reports system reviewed and no additional complaints, except as documented and Reports Normal hearing present Cardiovascular: Cardiovascular: Reports no additional cardiovascular complaints Respiratory: Respiratory: Reports no additional respiratory complaints and Reports no additional respiratory complaints Gastrointestinal: Gastrointestinal: Reports as per HPI and Reports no additional gastrointestinal complaints Musculoskeletal: Musculoskeletal: Reports no additional musculoskeletal complaints Integumentary/Breasts: Skin/Breast: Reports system reviewed and no additional complaints, except as docu and Reports as per HPI Neurologic: Reports system reviewed and no additional complaints, except as documented, Reports as per HPI and Reports Normal hearing present Psychiatric: Psychiatric: Reports no additional psychiatric complaints and Reports as per HPI Endocrine: Endocrine: Reports no additional endocrine complaints Hematologic/Lymphatic: Hematologic/Lymphatic: Reports no additional hematologic/lymphatic complaints Allergic/Immunologic: Allergic/Immunologic: Reports no additional allergic/immunologic complaints [facility] Past Medical History Medical History (Updated 03/15/22 @ 23:05 by Renetta Salinas NP) Chronic anemia Chronic diastolic congestive heart failure Echocardiogram in September 2019 showed normal left ventricular size and function with an ejection fraction estimated at 60 to 65% with abnormal diastolic function, moderate biatrial enlargement, mild aortic valve sclerosis, moderate aortic valve regurgitation, and trace mitral and tricuspid valve regurgitation. Chronic obstructive pulmonary disease Cirrhosis of liver with ascites Attributed to BURROWS however he has never had a liver biopsy. Coronary artery disease Status post 7 vessel CABG in 2007. No definite infarct or ischemia on nuclear stress test in September 2019. Diabetes Diet-controlled type 2 diabetes mellitus End-stage renal disease on peritoneal dialysis tunneled dialysis catheter right upper chest. Erythropoietin deficiency anemia Fracture Gastroesophageal reflux disease GI bleed March 2014, November 2017, and more recently suspected occult GI loss in September 2019. H/O: HTN (hypertension) Hyperlipidemia Hypertension Left bundle branch block Obstructive sleep apnea on CPAP The patient is supposed to use BiPAP bu
[2022-03-16] VITALS (14 sets, daily range): BP systolic 99–160; BP diastolic 47–59; PULSE 26–68; RESP 16–20; TEMP 36.3–37.1; O2SAT 94–100
[2022-03-16 00:02] LABS: Glucose Point of Care 80 mg/dl (65-105)
[2022-03-16 00:02] LABS: Troponin I 0.158 ng/mL (0.000-0.034)
[2022-03-16] MEDS: ACETAMINOPHEN 325 MG TABLET 650 MG PO (00:53)
[2022-03-16] MEDS: BUMETANIDE 1 MG TABLET 2 MG PO (07:56)
[2022-03-16] MEDS: ASPIRIN 81 MG ENTERIC TABLET PO (07:56)
[2022-03-16] MEDS: ALBUTEROL SULFATE NEB 2.5 MG/3 ML INH 5 MG INHALATION ×2 (08:24→13:12)
[2022-03-16 09:07] LABS: Basophils Percent Auto 0.5 % (0.2-1.2); Eosinophils Percent Auto 0.9 % (0-4.4); Hematocrit 28.9 % (42.0-52.0); Hemoglobin 9.1 g/dL (14.0-18.0); Immature Granulocyte Absolute 0.07 K/mm3 (0.00-0.031); Immature Granulocyte Percent A 1.6 % (0-0.5); Immature Platelet Fraction Pct 2.3 % (0.9-11.2); Lymphocytes Absolute Auto 0.33 K/mm3 (0.9-3.2); Lymphocytes Percent Auto 7.7 % (18.3-44.2); Mean Corpuscular HGB Conc 31.5 g/dl (32-36); Mean Corpuscular Hemoglobin 31.2 pg (26-34); Mean Platelet Volume 9.4 fl (7.4-10.4); Monocytes Absolute Auto 0.7 K/mm3 (0.1-0.6); Monocytes Percent Auto 16.9 % (2.6-8.5); Neutrophils Absolute Auto 3.1 K/mm3 (1.3-6.7); Neutrophils Percent Auto 72.4 % (45.5-73.1); Platelet Count Result 88 k/mm3 (150-375); Red Blood Count 2.92 M/mm3 (4.6-6.20); Red Cell Distribution Width 14.9 % (11.5-14.5); White Blood Count 4.3 K/mm3 (4.5-10.0)
[2022-03-16 09:36] LABS: Carbon Dioxide 27 mmol/L (22-30); Estimated Glomerular Filt Rate 8; Glucose 57 mg/dL (65-110)
[2022-03-16 09:37] LABS: Blood Urea Nitrogen 40 mg/dL (9-20); Lactate Dehydrogenase 187 U/L (120-246)
[2022-03-16 09:43] LABS: Glucose Point of Care 66 mg/dl (65-105)
[2022-03-16 09:58] LABS: Anion Gap 10 mmol/L (8-16); Calcium 7.8 mg/dL (8.4-10.2); Chloride 97 mmol/L (98-107); Phosphorus 6.1 mg/dL (2.5-4.5); Potassium 4.1 mmol/L (3.4-5.0); Sodium 134 mmol/L (137-145)
[2022-03-16 11:43] LABS: Glucose Point of Care 100 mg/dl (65-105)
--- NOTE | 2022-03-16 13:16 | PM.CNNEP ---
Assessment and Plan Assessment and plan (1) End stage renal disease: Code(s): N18.6 - End stage renal disease Status: Chronic Assessment and Plan: HD yesterday and continue M/W/F dialysis schedule follow electrolytes, volume status, and clearance (2) COVID: Code(s): U07.1 - COVID-19 Status: Acute Assessment and Plan: relatively asymptomatic no need for sterodis or remdesivir presumed etiology of weakness conservative care (3) Paroxysmal atrial fibrillation: Code(s): I48.0 - Paroxysmal atrial fibrillation Status: Acute Assessment and Plan: rate control strategy no longer on anticoagulation due to a bleed in the past and fall risk (4) Hypertension: Code(s): I10 - Essential (primary) hypertension Status: Chronic Assessment and Plan: reasonable control follow trend of hemodynamics (5) Chronic diastolic congestive heart failure: Code(s): I50.32 - Chronic diastolic (congestive) heart failure Status: Acute Assessment and Plan: compensated makes some urine -- on bumex (6) Anemia: Code(s): D64.9 - Anemia, unspecified Status: Acute Assessment and Plan: due to ESRD Epogen with HD follow trend of H/H Will continue to follow. History of Present Illness Reason for Consult Consult date: 03/16/22 Reason for consult: end stage renal disease Chief Complaint Chief complaint: Weakness/ESRD/COVID History of Present Illness Narrative: The patient is a 70-year-old male with past medical history as outlined below who presented to [facility] ER due to generalized weakness. The patient was recently diagnosed with COVID-19 on 03/12/22. His only real complaint that may or may not be related to this diagnosis is that of generalized weakness and fatigue. He denies any fevers, chills, nausea, vomiting, cough, or shortness of breath. I am not clear on the specifics, however, he has not had dialysis since 03/08/2022. I am unclear if this is related to his COVID-19 diagnosis or was there is some difficulty in transportation from his nursing facility to the dialysis center. Because of the ongoing persistence of his generalized weakness and fatigue, he was transferred to the ER for further assessment. Workup and evaluation in the emergency room demonstrated the patient be hemodynamically stable and routine blood test demonstrated labs consistent with his known history of end-stage renal disease. He had no critical electrolyte abnormalities and his hemoglobin and hematocrit were about at baseline. He did have some elevated troponins but this was felt to be related to his end-stage renal disease. An EKG was done which did not demonstrate any type of ischemic changes but just showed atrial fibrillation with slow ventricular response. On the day of presentation to the ER, he was due for dialysis. Given the concern that his nursing facility may not be able to transport him to dialysis on the day of admission or the day after, he was admitted for further evaluation and therapy as well as his scheduled dialysis treatment. Renal consultation was requested due to his end-stage renal disease. The patient is quite familiar to myself as I take care of his dialysis needs. The patient was initially started on hemodialysis when his kidneys failed. For brief period time, he was on peritoneal dialysis but due to recurrent peritonitis as well as a change in his living status and generalized physical decline, he had to be transitioned back to hemodialysis. He recently had an AV access placed and his outpatient dialysis unit has been using it successfully but they have not yet had time to schedule him for his tunneled dialysis catheter removal. As mentioned above, he has not had dialysis for approximately a week with his outpatient last dialysis treatment on 03/08/22. He did receive dialysis yesterday here at [facility]
[2022-03-16 16:51] LABS: Glucose Point of Care 105 mg/dl (65-105)
--- NOTE | 2022-03-16 17:21 | PM.IMPN ---
Progress Note: A&P Assessment and Plan (1) ESRD (end stage renal disease) on dialysis: Code(s): N18.6 - End stage renal disease; Z99.2 - Dependence on renal dialysis Status: Acute Assessment and Plan: The patient did receive dialysis today. -nephrology has been consulted -continue to monitor electrolytes (2) Paroxysmal atrial fibrillation: Code(s): I48.0 - Paroxysmal atrial fibrillation Status: Acute Assessment and Plan: -the patient is no longer on any anticoagulation due to a bleed in the past. -patient is currently in AFib with slow response (3) Obstructive sleep apnea on CPAP: Code(s): G47.33 - Obstructive sleep apnea (adult) (pediatric); Z99.89 - Dependence on other enabling machines and devices Status: Acute Assessment and Plan: The patient rarely uses his BiPAP. I did order a home CPAP/BiPAP for the patient. (4) Hypertension: Code(s): I10 - Essential (primary) hypertension Status: Chronic Assessment and Plan: -continue with patient's home medications -p.r.n. hydralazine with parameters (5) Chronic diastolic congestive heart failure: Code(s): I50.32 - Chronic diastolic (congestive) heart failure Status: Acute Assessment and Plan: -the patient is on Bumex Last echo was on 05/15/2021 which was read as the following. Complete two-dimensional, color flow and Doppler transthoracic echocardiogram is performed. ? 2. Left ventricular chamber dimension is normal. ? 3. Left ventricular systolic function is normal, estimated at 60-65%. ? 4. There is mildly increased left ventricular wall thickness. ? 5. The left ventricular diastolic function is abnormal. ? 6. E/e' 26 is elevated. ? 7. Global longitudinal strain is abnormal at -12.0%. ? 8. Atrial fibrillation. ? 9. Right ventricular systolic function is moderately reduced and with abnormal TAPSE 1.0 cm. ? 10. Right ventricular chamber dimension is mildly enlarged. ? 11. Left atrial chamber dimension is moderately enlarged. ? 12. Right atrial chamber dimension is moderately enlarged. ? 13. There is moderate aortic valve sclerosis. ? 14. There is mild aortic valve regurgitation. ? 15. The mitral valve has moderately calcified annulus. ? 16. There is trace tricuspid valve regurgitation. ? 17. Severe pulmonary hypertension, estimated pulmonary arterial systolic pressure is 75 mmHg. ? 18. The aortic root size at the sinus of Valsalva is mildly dilated at 4.3 cm. ? 19. Dilated inferior vena cava with <50% collapse upon inspiration consistent with significantly elevated right atrial pressure, 15 mmHg (6) Anemia: Code(s): D64.9 - Anemia, unspecified Status: Acute Assessment and Plan: His H&H is 9.5 and 28.5. Which is above baseline. (7) Elevated troponin: Code(s): R79.89 - Other specified abnormal findings of blood chemistry Status: Acute Assessment and Plan: -the patient's troponin levels are typically elevated. Although this troponin was slightly higher than his previous troponins. -could be that the patient has end-stage renal disease and that he has missed some dialysis treatments. -the patient has no complaints of chest pain. -repeat troponin. (8) COVID: Code(s): U07.1 - COVID-19 Status: Acute Assessment and Plan: -conservative care -contact and droplet isolation. (9) Vascular insufficiency: Code(s): I99.8 - Other disorder of circulatory system Status: Acute Assessment and Plan: -the patient has multiple areas on both toes were he has eschar tissue. -wound care nurse has been asked to see the patient. However there is no wound care nurse over the weekend. -arterial Dopplers have been ordered Plan 03/16/2022 interval history: 71-year-old male with a end-stage renal disease on home dialysis is found to have a COVID-19 however patient does not have any respiratory symptoms and not requiring any oxygen and pat
--- NOTE | 2022-03-16 20:22 | PCRCNOTE ---
Per pt he refuse Breathing TX and BIPAP for tonight. RN informed.
[2022-03-17] VITALS (13 sets, daily range): BP systolic 131–151; BP diastolic 40–64; PULSE 55–68; RESP 14–24; TEMP 36.1–36.8; O2SAT 92–100
[2022-03-17 07:45] LABS: Hemoglobin 8.6 g/dL (14.0-18.0); Immature Platelet Fraction Pct 2.2 % (0.9-11.2); Mean Corpuscular HGB Conc 31.9 g/dl (32-36); Mean Corpuscular Hemoglobin 31.5 pg (26-34); Mean Corpuscular Volume 98.9 fl (80-100); Mean Platelet Volume 9.5 fl (7.4-10.4); Platelet Count Result 100 k/mm3 (150-375); Red Blood Count 2.73 M/mm3 (4.6-6.20); Red Cell Distribution Width 14.8 % (11.5-14.5); White Blood Count 4.8 K/mm3 (4.5-10.0)
[2022-03-17 08:01] LABS: Anion Gap 11 mmol/L (8-16); Blood Urea Nitrogen 47 mg/dL (9-20); Calcium 7.6 mg/dL (8.4-10.2); Carbon Dioxide 25 mmol/L (22-30); Chloride 95 mmol/L (98-107); Estimated Glomerular Filt Rate 8; Glucose 93 mg/dL (65-110); Magnesium 2.1 mg/dL (1.6-2.3); Phosphorus 6.1 mg/dL (2.5-4.5); Potassium 4.4 mmol/L (3.4-5.0); Sodium 131 mmol/L (137-145)
[2022-03-17 08:24] LABS: Glucose Point of Care 95 mg/dl (65-105)
[2022-03-17] MEDS: BUMETANIDE 1 MG TABLET 2 MG PO (08:28)
[2022-03-17] MEDS: ASPIRIN 81 MG ENTERIC TABLET PO (08:28)
--- NOTE | 2022-03-17 11:35 | PCOTNOTE ---
Attempted OT evaluation, patient states he is not up for evaluation and has already sat at edge of bed and moved today. Explained to patient occupational therapy scope of practice and benefits of treatment and patient refused evaluation. Will follow.
--- NOTE | 2022-03-17 12:02 | PM.IMPN ---
Progress Note: A&P Assessment and Plan (1) Weakness: Code(s): R53.1 - Weakness Status: Acute Assessment and Plan: Multifactorial, PT recommending SNF at discharge (2) ESRD (end stage renal disease) on dialysis: Code(s): N18.6 - End stage renal disease; Z99.2 - Dependence on renal dialysis Status: Acute Assessment and Plan: Appreciate nephrology consultation for hemodialysis (3) Paroxysmal atrial fibrillation: Code(s): I48.0 - Paroxysmal atrial fibrillation Status: Acute Assessment and Plan: Anticoagulation discontinued due to history of bleed, currently in AFib rate controlled (4) Obstructive sleep apnea on CPAP: Code(s): G47.33 - Obstructive sleep apnea (adult) (pediatric); Z99.89 - Dependence on other enabling machines and devices Status: Acute Assessment and Plan: Noncompliant with CPAP at home, ordered for use here (5) Hypertension: Code(s): I10 - Essential (primary) hypertension Status: Chronic Assessment and Plan: Continue home meds (6) Chronic diastolic congestive heart failure: Code(s): I50.32 - Chronic diastolic (congestive) heart failure Status: Acute Assessment and Plan: Continue home Bumex, echo from May 2021 showed an EF of 60-65% with abnormal diastolic dysfunction and severe pulmonary hypertension (7) Anemia: Code(s): D64.9 - Anemia, unspecified Status: Acute Assessment and Plan: Stable, continue to monitor (8) Elevated troponin: Code(s): R79.89 - Other specified abnormal findings of blood chemistry Status: Acute Assessment and Plan: Secondary to hemodialysis, do not suspect acute cardiac etiology (9) COVID: Code(s): U07.1 - COVID-19 Status: Acute Assessment and Plan: Supportive care, stable (10) Vascular insufficiency: Code(s): I99.8 - Other disorder of circulatory system Status: Acute Assessment and Plan: Unable to adequately check ABIs Plan DVT prophylaxis with SCDs GI prophylaxis not indicated Code status full code Subjective Date/time seen: 03/17/22 12:02 Interval history: No overnight events noted. No chest pain or shortness of breath. No nausea, vomiting or diarrhea. No fevers or chills. Review of Systems Review of Systems: 12 point review of systems was assessed and was negative except as noted in the HPI Exam Narrative: General: No acute distress, alert and oriented per baseline HEENT: Atraumatic, normocephalic, mucous membranes moist CV: Regular rate and rhythm, S1, S2 Lungs: Clear to auscultation bilaterally, no rales or crackles noted, no wheezes, good air entry Abdomen: Soft, nontender, nondistended Extremities: Normal to inspection Skin: No rashes noted, no lesions or wounds seen Psych: Euthymic, normal affect Objective Data Vital Signs Vital Signs: Vital Signs - 24 hr 03/16/22 13:10 03/16/22 13:30 03/16/22 16:00 Temperature Pulse Rate 65 66 55 L Respiratory Rate 16 16 Blood Pressure Pulse Oximetry Oxygen Delivery Oxygen Flow Rate 03/16/22 16:00 03/16/22 20:00 03/16/22 23:26 Temperature 97.8 F 97.4 F L 98.0 F Pulse Rate 59 L 59 L 60 Respiratory Rate 18 18 18 Blood Pressure 142/47 H 145/59 H 130/52 L Pulse Oximetry 98 100 94 Oxygen Delivery Oxygen Flow Rate 03/16/22 20:40 03/17/22 03:41 03/17/22 00:00 Temperature 98.2 F Pulse Rate 68 56 L 59 L Respiratory Rate 18 Blood Pressure 139/49 L Pulse Oximetry 97 Oxygen Delivery Oxygen Flow Rate 03/17/22 04:00 03/17/22 08:00 03/17/22 08:35 Temperature 97 F L Pulse Rate 59 L 58 L Respiratory Rate 14 Blood Pressure 133/40 L Pulse Oximetry 100 97 Oxygen Delivery Nasal Cannula Oxygen Flow Rate 2 03/17/22 08:00 03/17/22 10:14 Temperature Pulse Rate 59 L Respiratory Rate Blood Pressure Pulse Oximetry Oxygen Delivery Nasal Can
[2022-03-17 12:31] LABS: Glucose Point of Care 106 mg/dl (65-105)
--- NOTE | 2022-03-17 12:39 | PM.PNNEP ---
Progress Note: A&P Assessment and Plan (1) End stage renal disease: Code(s): N18.6 - End stage renal disease Status: Chronic Assessment and Plan: HD tomorrow and continue M/W/F dialysis schedule follow electrolytes, volume status, and clearance (2) COVID: Code(s): U07.1 - COVID-19 Status: Acute Assessment and Plan: relatively asymptomatic presumed etiology of weakness conservative care (3) Paroxysmal atrial fibrillation: Code(s): I48.0 - Paroxysmal atrial fibrillation Status: Acute Assessment and Plan: rate control strategy no longer on anticoagulation due to a bleed in the past and fall risk (4) Hypertension: Code(s): I10 - Essential (primary) hypertension Status: Chronic Assessment and Plan: reasonable control follow trend of hemodynamics (5) Chronic diastolic congestive heart failure: Code(s): I50.32 - Chronic diastolic (congestive) heart failure Status: Acute Assessment and Plan: compensated makes some urine -- on bumex (6) Anemia: Code(s): D64.9 - Anemia, unspecified Status: Acute Assessment and Plan: due to ESRD Epogen with HD follow trend of H/H Will continue to follow. Subjective Date/time seen: 03/17/22 12:39 Still feels weak and tired but in no acute distress; asking if there is something that can be done for his feet/toes; otherwise, no issues/events overnight or earlier this morning; eating lunch at the time of my visit with him. Exam Narrative: General: WD/WN male in NAD Heart: normal S1 and S2; no rub Lungs: clear anteriorly but decreased at bases Abdomen: soft, nontender, nondistended, positive bowel sounds Extremities: no cyanosis or clubbing; trace edema Skin: bilateral toes with eschar Objective Data Vital Signs Vital Signs: Vital Signs Temp Pulse Resp BP Pulse Ox O2 Del Method O2 Flow Rate 03/17/22 12:00 55 L 03/17/22 12:00 97.9 F 56 L 18 131/47 L 97 03/17/22 10:14 Nasal Cannula 3 03/17/22 08:00 59 L 03/17/22 08:35 97 Nasal Cannula 2 03/17/22 08:00 97 F L 58 L 14 133/40 L 100 03/17/22 04:00 59 L 03/17/22 00:00 59 L 01/01/23 03:41 98.2 F 56 L 18 139/49 L 97 03/16/22 20:40 68 03/16/22 23:26 98.0 F 60 18 130/52 L 94 03/16/22 20:00 97.4 F L 59 L 18 145/59 H 100 03/16/22 16:00 97.8 F 59 L 18 142/47 H 98 03/16/22 16:00 55 L Intake/Output Intake/Output: Intake & Output 03/14/22 03/15/22 03/16/22 03/17/22 23:59 23:59 23:59 23:59 Intake Total 960 370 Output Total 3000 Balance -3000 960 370 Meds/Results Medications: Active Medications Generic Name Dose Route Start Last Admin Trade Name Freq PRN Reason Stop Dose Admin Acetaminophen 650 mg 03/15/22 09:33 03/16/22 00:53 Acetaminophen 325 Mg Tablet PO 650 mg Q4H PRN Administration Mild Pain (1-3) or Fever Albuterol 5 mg 03/15/22 14:00 03/17/22 10:23 Albuterol Sulfate Neb 2.5 Mg/3 Ml Inh INHALATION Not Given Q6HRT NOÉ Albuterol 2 puff 03/15/22 23:01 Albuterol Sulfate (*Sp) Aerosol 1 Puff INHALATION Q6HRT PRN Shortness Of Breath Aspirin 81 mg 03/16/22 09:00 03/17/22 08:28 Aspirin 81 Mg Enteric Tablet PO 81 mg DAILY NOÉ Administration Bumetanide 2 mg 03/16/22 09:00 03/17/22 08:28 Bumetanide 1 Mg Tablet PO 2 mg DAILY NOÉ Administration Hydralazine HCl 10 mg 03/15/22 23:01 Hydralazine Hcl 20 Mg/Ml Vial IV PUSH Q8H PRN Blood Pressure - High Meclizine HCl 25 mg 03/15/22 22:48 Meclizine Hcl 25 Mg Tablet PO TID PRN Dizziness Sevelamer Carbonate 1,600 mg 03/16/22 08:00 03/17/22 11:56 Sevelamer Carbonate 800 Mg Tablet BY MOUTH Not Given TIDWM NOÉ Sevelamer Carbonate 1,600 mg 03/16/22 09:00 Sevelamer Carbonate 800 Mg Tablet PO PRN
[2022-03-17] MEDS: ALBUTEROL SULFATE NEB 2.5 MG/3 ML INH 5 MG INHALATION ×2 (15:30→20:42)
[2022-03-17] MEDS: NEOMYCIN/POLYMYXIN/BACITRACIN OINTMENT PACKET 1 PACKET (17:34)
[2022-03-17 17:49] LABS: Glucose Point of Care 98 mg/dl (65-105)
[2022-03-17 22:07] LABS: Glucose Point of Care 95 mg/dl (65-105)
[2022-03-18] VITALS (25 sets, daily range): BP systolic 123–166; BP diastolic 53–101; PULSE 52–71; RESP 12–20; TEMP 36–36.6; O2SAT 90–100
--- NOTE | 2022-03-18 02:38 | PCRCNOTE ---
pt refused tx
[2022-03-18 07:12] LABS: Hematocrit 27.2 % (42.0-52.0); Hemoglobin 8.9 g/dL (14.0-18.0); Immature Platelet Fraction Pct 1.9 % (0.9-11.2); Mean Corpuscular HGB Conc 32.7 g/dl (32-36); Mean Corpuscular Hemoglobin 32.1 pg (26-34); Mean Corpuscular Volume 98.2 fl (80-100); Mean Platelet Volume 8.8 fl (7.4-10.4); Platelet Count Result 118 k/mm3 (150-375); Red Blood Count 2.77 M/mm3 (4.6-6.20); Red Cell Distribution Width 14.6 % (11.5-14.5); White Blood Count 6.2 K/mm3 (4.5-10.0)
[2022-03-18 07:21] LABS: Albumin Level 2.9 g/dL (3.5-5.1); Anion Gap 10 mmol/L (8-16); Blood Urea Nitrogen 51 mg/dL (9-20); Calcium 7.9 mg/dL (8.4-10.2); Carbon Dioxide 26 mmol/L (22-30); Chloride 91 mmol/L (98-107); Estimated Glomerular Filt Rate 6; Glucose 83 mg/dL (65-110); Magnesium 1.9 mg/dL (1.6-2.3); Phosphorus 5.8 mg/dL (2.5-4.5); Potassium 4.4 mmol/L (3.4-5.0); Sodium 127 mmol/L (137-145)
[2022-03-18 08:23] LABS: Glucose Point of Care 69 mg/dl (65-105)
--- NOTE | 2022-03-18 10:00 | PCPTNOTE ---
Patient in dialysis at this time. Will continue per PT plan of care.
[2022-03-18] MEDS: EPOETIN ALFA-EPBX 10,000 UNITS/ML VIAL 10000 UNITS IV PUSH (10:12)
--- NOTE | 2022-03-18 10:14 | PM.DS ---
DS: Admitting Diagnosis Discharge Date 03/18/22 Admitting Diagnosis Missed dialysis DS: Discharge Diagnosis Discharge Diagnosis (1) Weakness: Code(s): R53.1 - Weakness Status: Acute Assessment and Plan: Multifactorial, PT recommending SNF at discharge (2) ESRD (end stage renal disease) on dialysis: Code(s): N18.6 - End stage renal disease; Z99.2 - Dependence on renal dialysis Status: Acute Assessment and Plan: Appreciate nephrology consultation for hemodialysis (3) Paroxysmal atrial fibrillation: Code(s): I48.0 - Paroxysmal atrial fibrillation Status: Acute Assessment and Plan: Anticoagulation discontinued due to history of bleed, currently in AFib rate controlled (4) Obstructive sleep apnea on CPAP: Code(s): G47.33 - Obstructive sleep apnea (adult) (pediatric); Z99.89 - Dependence on other enabling machines and devices Status: Acute Assessment and Plan: Noncompliant with CPAP at home, ordered for use here (5) Hypertension: Code(s): I10 - Essential (primary) hypertension Status: Chronic Assessment and Plan: Continue home meds (6) Chronic diastolic congestive heart failure: Code(s): I50.32 - Chronic diastolic (congestive) heart failure Status: Acute Assessment and Plan: Continue home Bumex, echo from May 2021 showed an EF of 60-65% with abnormal diastolic dysfunction and severe pulmonary hypertension (7) Anemia: Code(s): D64.9 - Anemia, unspecified Status: Acute Assessment and Plan: Stable, continue to monitor (8) Elevated troponin: Code(s): R79.89 - Other specified abnormal findings of blood chemistry Status: Acute Assessment and Plan: Secondary to hemodialysis, do not suspect acute cardiac etiology (9) COVID: Code(s): U07.1 - COVID-19 Status: Acute Assessment and Plan: Supportive care, stable (10) Vascular insufficiency: Code(s): I99.8 - Other disorder of circulatory system Status: Acute Assessment and Plan: Unable to adequately check ABIs Plan DVT prophylaxis with SCDs GI prophylaxis not indicated Code status full code DS: Summary Hospital Course Hospital Course: 71-year-old male from [facility] with history of end-stage renal disease on hemodialysis is presenting with fluid volume overload secondary to missing dialysis. The facility states that because he had COVID he was unable to be dialyzed. Patient is asymptomatic from COVID. He was admitted and Nephrology was consulted. Dialysis was performed, symptoms resolved. He was discharged in stable condition with outpatient follow-up by Nephrology. Time Spent with Patient Time attestation: Total time spent providing and/or coordinating discharge services: Exam Narrative: General: No acute distress, alert and oriented per baseline HEENT: Atraumatic, normocephalic, mucous membranes moist CV: Regular rate and rhythm, S1, S2 Lungs: Clear to auscultation bilaterally, no rales or crackles noted, no wheezes, good air entry Abdomen: Soft, nontender, nondistended Extremities: Normal to inspection Skin: No rashes noted, no lesions or wounds seen Psych: Euthymic, normal affect DS: Data Data Completed and Pending Labs on day of discharge: Labs from last 24 hours 03/18/22 03/18/22 03/18/22 08:20 06:51 06:51 WBC 6.2 RBC 2.77 L Hgb 8.9 L Hct 27.2 L MCV 98.2 MCH 32.1 MCHC 32.7 RDW 14.6 H Plt Count 118 L MPV 8.8 % Immature Plt Fraction 1.9 Sodium 127 L Potassium 4.4 Chloride 91 L Carbon Dioxide 26 Anion Gap 10 BUN 51 H Creatinine 8.40 H Estim Creat Clear Calc Not Reportable Estimated GFR 6 L Glucose 83 POC Capillary Glucose 69 Calcium 7.9 L Phosphorus 5.8 H Magnesium 1.9 Albumin 2.9 L 03/17/22 03/17/22 03/17/22 21:35 17:36 12:12 WBC RBC Hgb Hc
--- NOTE | 2022-03-18 11:12 | PM.PNNEP ---
Progress Note: A&P Assessment and Plan (1) End stage renal disease: Code(s): N18.6 - End stage renal disease Status: Chronic Assessment and Plan: HD today and continue M/W/F dialysis schedule follow electrolytes, volume status, and clearance (2) COVID: Code(s): U07.1 - COVID-19 Status: Acute Assessment and Plan: relatively asymptomatic presumed etiology of weakness conservative care (3) Paroxysmal atrial fibrillation: Code(s): I48.0 - Paroxysmal atrial fibrillation Status: Acute Assessment and Plan: rate control strategy no longer on anticoagulation due to a bleed in the past and fall risk (4) Hypertension: Code(s): I10 - Essential (primary) hypertension Status: Chronic Assessment and Plan: reasonable control follow trend of hemodynamics (5) Chronic diastolic congestive heart failure: Code(s): I50.32 - Chronic diastolic (congestive) heart failure Status: Acute Assessment and Plan: compensated makes some urine -- on bumex (6) Anemia: Code(s): D64.9 - Anemia, unspecified Status: Acute Assessment and Plan: due to ESRD Epogen with HD follow trend of H/H Will continue to follow. Subjective Date/time seen: 03/18/22 11:12 Tolerating dialysis at the time of my visit (seen on HD at 11:00AM); no apparent distress voiced; overall, states he feels reasonably well; no other issues/events overnight or earlier this morning. Exam Narrative: General: WD/WN male in NAD Heart: normal S1 and S2; no rub Lungs: clear anteriorly but decreased at bases Abdomen: soft, nontender, nondistended, positive bowel sounds Extremities: no cyanosis or clubbing; trace edema Skin: bilateral toes with eschar noted Objective Data Vital Signs Vital Signs: Vital Signs Temp Pulse Resp BP Pulse Ox O2 Del Method O2 Flow Rate 03/18/22 10:50 54 L 16 131/59 L 03/18/22 11:00 54 L 136/63 03/18/22 10:40 54 L 131/59 L 03/18/22 10:20 52 L 132/56 L 03/18/22 10:00 57 L 128/58 L 03/18/22 09:40 52 L 150/58 H 03/18/22 09:20 55 L 123/73 03/18/22 09:00 55 L 148/59 H 03/18/22 08:44 56 L 162/101 H 03/18/22 08:44 2 03/18/22 08:30 97 F L 61 16 166/62 H 03/18/22 04:00 97 F L 57 L 20 143/53 H 90 03/18/22 04:00 56 L 03/18/22 00:00 58 L 03/17/22 23:43 97.6 F 59 L 20 147/48 H 97 03/17/22 21:15 61 03/17/22 20:43 92 Nasal Cannula 2 03/17/22 20:43 68 17 03/17/22 19:42 97.8 F 63 20 151/56 H 92 03/17/22 16:00 97.9 F 64 24 H 143/64 H 95 03/17/22 16:00 59 L 03/17/22 16:05 66 18 03/17/22 15:30 62 18 Intake/Output Intake/Output: Intake & Output 03/15/22 03/16/22 03/17/22 03/18/22 23:59 23:59 23:59 23:59 Intake Total 960 370 180 Output Total 3000 2000 Balance -3000 960 370 -1820 Meds/Results Medications: Active Medications Generic Name Dose Route Start Last Admin Trade Name [place] PRN Reason Stop Dose Admin Acetaminophen 650 mg 03/15/22 09:33 03/16/22 00:53 Acetaminophen 325 Mg Tablet PO 650 mg Q4H PRN Administration Mild Pain (1-3) or Fever Albuterol 5 mg 03/15/22 14:00 03/18/22 10:38 Albuterol Sulfate Neb 2.5 Mg/3 Ml Inh INHALATION Not Given Q6HRT [facility] Albuterol 2 puff 03/15/22 23:01 Albuterol Sulfate (*Sp) Aerosol 1 Puff INHALATION Q6HRT PRN Shortness Of Breath Aspirin 81 mg 03/16/22 09:00 03/18/22 13:33 Aspirin 81 Mg Enteric Tablet PO 81 mg DAILY [facility] Administration Bumetanide 2 mg 03/16/22 09:00 03/18/22 13:33 Bumetanide 1 Mg Tablet PO 2 mg DAILY [facility] Administration Epoetin Wily-epbx 10,000 units 03/18/22 22:23 03/18/22 10:12 Epoetin Wily-Epbx 10,000 Units/Ml Vial IV PUSH 03/18/22 22:24 10,000 units ONCE ONE Administration Hyd
[2022-03-18 11:21] LABS: Glucose Point of Care 83 mg/dl (65-105)
[2022-03-18] MEDS: BUMETANIDE 1 MG TABLET 2 MG PO (13:33)
[2022-03-18] MEDS: ASPIRIN 81 MG ENTERIC TABLET PO (13:33)
--- NOTE | 2022-03-18 13:52 | PCPTNOTE ---
Patient refused treatment this session due to feeling exhausted due to coming from dialysis. Will continue per PT plan of care.
[2022-03-18] MEDS: ALBUTEROL SULFATE NEB 2.5 MG/3 ML INH 5 MG INHALATION ×2 (15:37→22:05)
--- NOTE | 2022-03-18 16:22 | PM.IMPN ---
Progress Note: A&P Assessment and Plan (1) Weakness: Code(s): R53.1 - Weakness Status: Acute Assessment and Plan: Multifactorial, PT recommending SNF at discharge Start dexamethasone for possible COVID-induced weakness (2) ESRD (end stage renal disease) on dialysis: Code(s): N18.6 - End stage renal disease; Z99.2 - Dependence on renal dialysis Status: Acute Assessment and Plan: Appreciate nephrology consultation for hemodialysis (3) Paroxysmal atrial fibrillation: Code(s): I48.0 - Paroxysmal atrial fibrillation Status: Acute Assessment and Plan: Anticoagulation discontinued due to history of bleed, currently in AFib rate controlled (4) Obstructive sleep apnea on CPAP: Code(s): G47.33 - Obstructive sleep apnea (adult) (pediatric); Z99.89 - Dependence on other enabling machines and devices Status: Acute Assessment and Plan: Noncompliant with CPAP at home, ordered for use here (5) Hypertension: Code(s): I10 - Essential (primary) hypertension Status: Chronic Assessment and Plan: Continue home meds (6) Chronic diastolic congestive heart failure: Code(s): I50.32 - Chronic diastolic (congestive) heart failure Status: Acute Assessment and Plan: Continue home Bumex, echo from May 2021 showed an EF of 60-65% with abnormal diastolic dysfunction and severe pulmonary hypertension (7) Anemia: Code(s): D64.9 - Anemia, unspecified Status: Acute Assessment and Plan: Stable, continue to monitor (8) Elevated troponin: Code(s): R79.89 - Other specified abnormal findings of blood chemistry Status: Acute Assessment and Plan: Secondary to hemodialysis, do not suspect acute cardiac etiology (9) COVID: Code(s): U07.1 - COVID-19 Status: Acute Assessment and Plan: Supportive care, stable, start dexamethasone 03/18/22 for 10 day course (10) Vascular insufficiency: Code(s): I99.8 - Other disorder of circulatory system Status: Acute Assessment and Plan: Unable to adequately check ABIs Plan DVT prophylaxis with heparin GI prophylaxis with PPI Code status full code Subjective Date/time seen: 03/18/22 16:22 Interval history: No overnight events noted. No chest pain or shortness of breath. No nausea, vomiting or diarrhea. No fevers or chills. Still with some generalized weakness, improved from admission. Review of Systems Review of Systems: 12 point review of systems was assessed and was negative except as noted in the HPI Exam Narrative: General: No acute distress, alert and oriented per baseline HEENT: Atraumatic, normocephalic, mucous membranes moist CV: Regular rate and rhythm, S1, S2 Lungs: Clear to auscultation bilaterally, no rales or crackles noted, no wheezes, good air entry Abdomen: Soft, nontender, nondistended Extremities: Normal to inspection Skin: No rashes noted, no lesions or wounds seen Objective Data Vital Signs Vital Signs: Vital Signs - 24 hr 03/17/22 19:42 03/17/22 20:43 03/17/22 20:43 Temperature 97.8 F Pulse Rate 63 68 Respiratory Rate 20 17 Blood Pressure 151/56 H Pulse Oximetry 92 92 Oxygen Delivery Nasal Cannula Oxygen Flow Rate 2 03/17/22 21:15 03/17/22 23:43 03/18/22 00:00 Temperature 97.6 F Pulse Rate 61 59 L 58 L Respiratory Rate 20 Blood Pressure 147/48 H Pulse Oximetry 97 Oxygen Delivery Oxygen Flow Rate 03/18/22 04:00 03/18/22 04:00 03/18/22 08:30 Temperature 97 F L 97 F L Pulse Rate 56 L 57 L 61 Respiratory Rate 20 16 Blood Pressure 143/53 H 166/62 H Pulse Oximetry 90 Oxygen Delivery Oxygen Flow Rate 03/18/22 08:44 03/18/22 08:44 03/18/22 09:00 Temperature Pulse Rate 56 L 55 L Respiratory Rate Blood Pressure 162/101 H 148/59 H Pulse Oximetry Oxygen Delivery Oxygen Flow Rate 2 03/18/22 09:20 03/18/22
[2022-03-18 17:30] LABS: Glucose Point of Care 128 mg/dl (65-105)
[2022-03-18] MEDS: PANTOPRAZOLE 40 MG TABLET PO (17:56)
[2022-03-18] MEDS: SEVELAMER CARBONATE 800 MG TABLET 1600 MG BY MOUTH (17:57)
[2022-03-18 22:52] LABS: Glucose Point of Care 120 mg/dl (65-105)
[2022-03-18] MEDS: HEPARIN SODIUM 5,000 UNITS/ML VIAL 5000 UNITS SUB-Q (23:17)
[2022-03-19] VITALS (13 sets, daily range): BP systolic 120–125; BP diastolic 40–57; PULSE 54–80; RESP 14–20; TEMP 36.1–36.7; O2SAT 91–98
[2022-03-19] MEDS: HEPARIN SODIUM 5,000 UNITS/ML VIAL 5000 UNITS SUB-Q ×3 (06:37→21:27)
[2022-03-19 07:23] LABS: Hematocrit 25.9 % (42.0-52.0); Hemoglobin 8.2 g/dL (14.0-18.0); Immature Platelet Fraction Pct 1.9 % (0.9-11.2); Mean Corpuscular HGB Conc 31.7 g/dl (32-36); Mean Corpuscular Hemoglobin 30.5 pg (26-34); Mean Corpuscular Volume 96.3 fl (80-100); Mean Platelet Volume 9.4 fl (7.4-10.4); Platelet Count Result 106 k/mm3 (150-375); Red Blood Count 2.69 M/mm3 (4.6-6.20); Red Cell Distribution Width 14.6 % (11.5-14.5); White Blood Count 6.1 K/mm3 (4.5-10.0)
[2022-03-19 07:37] LABS: Albumin Level 2.6 g/dL (3.5-5.1); Anion Gap 5 mmol/L (8-16); Blood Urea Nitrogen 32 mg/dL (9-20); Calcium 7.7 mg/dL (8.4-10.2); Carbon Dioxide 30 mmol/L (22-30); Chloride 94 mmol/L (98-107); Estimated Glomerular Filt Rate 10; Glucose 78 mg/dL (65-110); Magnesium 1.9 mg/dL (1.6-2.3); Phosphorus 4.5 mg/dL (2.5-4.5); Potassium 3.9 mmol/L (3.4-5.0); Sodium 129 mmol/L (137-145)
[2022-03-19 08:12] LABS: Glucose Point of Care 80 mg/dl (65-105)
[2022-03-19] MEDS: ALBUTEROL SULFATE NEB 2.5 MG/3 ML INH 5 MG INHALATION ×4 (08:50→20:16)
[2022-03-19] MEDS: ACETAMINOPHEN 325 MG TABLET 650 MG PO (10:23)
[2022-03-19] MEDS: DEXAMETHASONE SOD PHOS INJ 4 MG/ML VIAL 6 MG IV PUSH (10:24)
[2022-03-19] MEDS: PANTOPRAZOLE 40 MG TABLET PO (10:24)
[2022-03-19] MEDS: ASPIRIN 81 MG ENTERIC TABLET PO (10:24)
[2022-03-19] MEDS: BUMETANIDE 1 MG TABLET 2 MG PO (10:24)
--- NOTE | 2022-03-19 10:57 | PM.IMPN ---
Progress Note: A&P Assessment and Plan (1) Weakness: Code(s): R53.1 - Weakness Status: Acute Assessment and Plan: Multifactorial, PT recommending SNF at discharge Started dexamethasone 03/18/2022 for possible COVID-induced weakness Started remdesivir 03/19/2022 due to supplemental oxygen needed of 2 L nasal cannula (2) ESRD (end stage renal disease) on dialysis: Code(s): N18.6 - End stage renal disease; Z99.2 - Dependence on renal dialysis Status: Acute Assessment and Plan: Appreciate nephrology consultation for hemodialysis (3) Paroxysmal atrial fibrillation: Code(s): I48.0 - Paroxysmal atrial fibrillation Status: Acute Assessment and Plan: Anticoagulation discontinued due to history of bleed, currently in AFib rate controlled (4) Obstructive sleep apnea on CPAP: Code(s): G47.33 - Obstructive sleep apnea (adult) (pediatric); Z99.89 - Dependence on other enabling machines and devices Status: Acute Assessment and Plan: Noncompliant with CPAP at home, ordered for use here (5) Hypertension: Code(s): I10 - Essential (primary) hypertension Status: Chronic Assessment and Plan: Continue home meds (6) Chronic diastolic congestive heart failure: Code(s): I50.32 - Chronic diastolic (congestive) heart failure Status: Acute Assessment and Plan: Continue home Bumex, echo from May 2021 showed an EF of 60-65% with abnormal diastolic dysfunction and severe pulmonary hypertension (7) Anemia: Code(s): D64.9 - Anemia, unspecified Status: Acute Assessment and Plan: Stable, continue to monitor (8) Elevated troponin: Code(s): R79.89 - Other specified abnormal findings of blood chemistry Status: Acute Assessment and Plan: Secondary to hemodialysis, do not suspect acute cardiac etiology (9) COVID: Code(s): U07.1 - COVID-19 Status: Acute Assessment and Plan: Supportive care, stable, start dexamethasone 03/18/22 for 10 day course (10) Vascular insufficiency: Code(s): I99.8 - Other disorder of circulatory system Status: Acute Assessment and Plan: Unable to adequately check ABIs Plan DVT prophylaxis with heparin GI prophylaxis with PPI Code status full code Subjective Date/time seen: 03/19/22 10:57 Interval history: No overnight events noted. No chest pain or shortness of breath. No nausea, vomiting or diarrhea. No fevers or chills. Patient is much more alert and oriented today than yesterday. He states he feels much better, much stronger and less weak today. Review of Systems Review of Systems: 12 point review of systems was assessed and was negative except as noted in the HPI Exam Narrative: General: No acute distress, alert and oriented per baseline HEENT: Atraumatic, normocephalic, mucous membranes moist CV: Regular rate and rhythm, S1, S2 Lungs: Clear to auscultation bilaterally, no rales or crackles noted, no wheezes, good air entry Abdomen: Soft, nontender, nondistended Extremities: Normal to inspection Skin: No rashes noted, no lesions or wounds seen Objective Data Vital Signs Vital Signs: Vital Signs - 24 hr 03/18/22 11:00 03/18/22 11:20 03/18/22 11:44 Temperature Pulse Rate 54 L 60 55 L Respiratory Rate Blood Pressure 136/63 162/71 H 153/67 H Pulse Oximetry Oxygen Delivery Oxygen Flow Rate 03/18/22 11:50 03/18/22 15:00 03/18/22 15:37 Temperature 97.2 F L Pulse Rate 53 L 71 Respiratory Rate 12 16 Blood Pressure 166/62 H Pulse Oximetry 100 Oxygen Delivery Nasal Cannula Oxygen Flow Rate 2 03/18/22 16:40 03/18/22 12:00 03/18/22 16:00 Temperature 97.9 F Pulse Rate 63 57 L 69 Respiratory Rate 18 Blood Pressure 127/53 L Pulse Oximetry 99 Oxygen Delivery Oxygen Flow Rate 03/18/22 20:00 03/18/22 22:06 03/18/22 22:09 Temperature 97.4 F L Pulse R
--- NOTE | 2022-03-19 11:34 | PM.PNNEP ---
Progress Note: A&P Assessment and Plan (1) End stage renal disease: Code(s): N18.6 - End stage renal disease Status: Chronic Assessment and Plan: HD tomorrow and continue M/W/F dialysis schedule follow electrolytes, volume status, and clearance (2) COVID: Code(s): U07.1 - COVID-19 Status: Acute Assessment and Plan: relatively asymptomatic but requiring supplemental oxygen presumed etiology of weakness started on dexamethasone (3) Paroxysmal atrial fibrillation: Code(s): I48.0 - Paroxysmal atrial fibrillation Status: Acute Assessment and Plan: rate control strategy no longer on anticoagulation due to a bleed in the past and fall risk (4) Hypertension: Code(s): I10 - Essential (primary) hypertension Status: Chronic Assessment and Plan: reasonable control follow trend of hemodynamics (5) Chronic diastolic congestive heart failure: Code(s): I50.32 - Chronic diastolic (congestive) heart failure Status: Acute Assessment and Plan: compensated makes some urine -- on bumex (6) Anemia: Code(s): D64.9 - Anemia, unspecified Status: Acute Assessment and Plan: due to ESRD Epogen with HD follow trend of H/H Will continue to follow. Subjective Date/time seen: 03/19/22 11:34 Tolerated hemodialysis treatment yesterday without any issue or problems; still requiring 2L supplemental oxygen but does not appear in any respiratory distress; no issues/events overnight or earlier this AM; still with generalized weakness but feels much better today. Exam Narrative: General: WD/WN male in NAD Heart: normal S1 and S2; no rub Lungs: clear anteriorly but decreased at bases Abdomen: soft, nontender, nondistended, positive bowel sounds Extremities: no cyanosis or clubbing; trace edema Skin: bilateral toes with eschar present Objective Data Vital Signs Vital Signs: Vital Signs Temp Pulse Resp BP Pulse Ox O2 Del Method O2 Flow Rate 03/19/22 10:00 97.5 F L 61 20 125/40 L 95 03/19/22 09:02 71 16 03/19/22 08:50 77 16 03/19/22 08:50 95 Nasal Cannula 2 03/19/22 04:00 96.9 F L 67 14 92 03/19/22 04:00 64 03/19/22 00:00 58 L 03/18/22 20:00 60 03/19/22 02:26 68 16 03/19/22 02:15 70 16 03/18/22 23:42 97.1 F L 58 L 14 132/60 95 03/18/22 20:00 96 Nasal Cannula 2 03/18/22 22:18 69 16 03/18/22 22:09 96 Nasal Cannula 2 03/18/22 22:06 65 16 03/18/22 20:00 97.4 F L 57 L 14 99 03/18/22 16:00 69 03/18/22 12:00 57 L 03/18/22 16:40 97.9 F 63 18 127/53 L 99 03/18/22 15:37 71 16 03/18/22 15:00 Nasal Cannula 2 03/18/22 11:50 97.2 F L 53 L 12 166/62 H 100 03/18/22 11:44 55 L 153/67 H Intake/Output Intake/Output: Intake & Output 03/16/22 03/17/22 03/18/22 03/19/22 23:59 23:59 23:59 23:59 Intake Total 960 370 520 620 Output Total 2000 Balance 960 370 -1480 620 Meds/Results Medications: Active Medications Generic Name Dose Route Start Last Admin Trade Name Freq PRN Reason Stop Dose Admin Acetaminophen 650 mg 03/15/22 09:33 03/19/22 10:23 Acetaminophen 325 Mg Tablet PO 650 mg Q4H PRN Administration Mild Pain (1-3) or Fever Albuterol 5 mg 03/15/22 14:00 03/19/22 08:57 Albuterol Sulfate Neb 2.5 Mg/3 Ml Inh INHALATION 5 mg Q6HRT NOÉ Administration Albuterol 2 puff 03/15/22 23:01 Albuterol Sulfate (*Sp) Aerosol 1 Puff INHALATION Q6HRT PRN Shortness Of Breath Aspirin 81 mg 03/16/22 09:00 03/19/22 10:24 Aspirin 81 Mg Enteric Tablet PO 81 mg DAILY NOÉ Administration Bumetanide 2 mg 03/16/22 09:00 03/19/22 10:24 Bumetanide 1 Mg Tablet PO 2 mg DAILY NOÉ Administration Dexamethasone Sodium Phosphate 6 mg 03/18/22 17:00 03/19/22 10
[2022-03-19 11:50] LABS: Glucose Point of Care 109 mg/dl (65-105)
--- NOTE | 2022-03-19 16:05 | PHAR ---
SPOKE WITH DR. JIMENEZ ABOUT [employer]ERS RECOMMENDATION TO NOT GIVE REMDESIVIR FOR GFR < 30 HOWEVER BASED ON BENEFIT VS RISK FOR THIS PATIENT SHE WANTS TO GO AHEAD WITH AN ADJUSTED DOSING SCHEDULE OF 100MG 4 HOURS PRIOR TO EACH DIALYSIS SESSION.
[2022-03-19 16:08] LABS: Alanine Aminotransferase 19 U/L (6-50); Estimated Glomerular Filt Rate 9; INR 1.5
[2022-03-19 17:12] LABS: Glucose Point of Care 158 mg/dl (65-105)
[2022-03-19 22:18] LABS: Glucose Point of Care 198 mg/dl (65-105)
[2022-03-20] VITALS (22 sets, daily range): BP systolic 104–153; BP diastolic 42–64; PULSE 45–85; RESP 15–20; TEMP 36–36.8; O2SAT 89–100
[2022-03-20] MEDS: ALBUTEROL SULFATE NEB 2.5 MG/3 ML INH 5 MG INHALATION ×3 (02:03→19:47)
[2022-03-20] MEDS: HEPARIN SODIUM 5,000 UNITS/ML VIAL 5000 UNITS SUB-Q ×2 (05:40→22:45)
[2022-03-20 06:38] LABS: Hematocrit 25.5 % (42.0-52.0); Hemoglobin 8.2 g/dL (14.0-18.0); Immature Platelet Fraction Pct 2.8 % (0.9-11.2); Mean Corpuscular HGB Conc 32.2 g/dl (32-36); Mean Corpuscular Hemoglobin 30.6 pg (26-34); Mean Corpuscular Volume 95.1 fl (80-100); Mean Platelet Volume 9.5 fl (7.4-10.4); Platelet Count Result 101 k/mm3 (150-375); Red Blood Count 2.68 M/mm3 (4.6-6.20); Red Cell Distribution Width 14.6 % (11.5-14.5); White Blood Count 2.8 K/mm3 (4.5-10.0)
[2022-03-20 06:46] LABS: INR 1.5; Prothrombin Time 17.8 Seconds (11.1-14.7)
[2022-03-20 06:50] LABS: Albumin Level 2.8 g/dL (3.5-5.1); Anion Gap 6 mmol/L (8-16); Blood Urea Nitrogen 43 mg/dL (9-20); Carbon Dioxide 28 mmol/L (22-30); Chloride 90 mmol/L (98-107); Estimated Glomerular Filt Rate 8; Glucose 144 mg/dL (65-110); Phosphorus 5.6 mg/dL (2.5-4.5); Potassium 4.3 mmol/L (3.4-5.0); Sodium 124 mmol/L (137-145)
[2022-03-20 08:44] LABS: Glucose Point of Care 136 mg/dl (65-105)
[2022-03-20] MEDS: DEXAMETHASONE SOD PHOS INJ 4 MG/ML VIAL 6 MG IV PUSH (08:46)
[2022-03-20] MEDS: REMDESIVIR 100 MG/NS 250 ML 100 MG/250 ML BAG 250 MG IVPB (08:46)
[2022-03-20] MEDS: BUMETANIDE 1 MG TABLET 2 MG PO (08:47)
[2022-03-20] MEDS: PANTOPRAZOLE 40 MG TABLET PO (08:47)
[2022-03-20] MEDS: ASPIRIN 81 MG ENTERIC TABLET PO (08:47)
--- NOTE | 2022-03-20 11:17 | PCOTNOTE ---
Attempted to see patient this am, however patient was off floor for dialysis at this time.
[2022-03-20 11:48] LABS: Glucose Point of Care 129 mg/dl (65-105)
--- NOTE | 2022-03-20 13:18 | PCPTNOTE ---
The patient treatment was not able to be completed. Patient declined PT on first attempt due to eating breakfast. Second attempt made to see patient and patient was out of room in dialysis. Will plan to continue treatment per plan of care.
--- NOTE | 2022-03-20 14:16 | PM.PNNEP ---
Progress Note: A&P Assessment and Plan (1) End stage renal disease: Code(s): N18.6 - End stage renal disease Status: Chronic Assessment and Plan: HD today and continue M/W/F dialysis schedule follow electrolytes, volume status, and clearance (2) COVID: Code(s): U07.1 - COVID-19 Status: Acute Assessment and Plan: relatively asymptomatic but was requiring supplemental oxygen presumed etiology of weakness on dexamethasone and remdesivir benefit of remdesivir use(?) (3) Paroxysmal atrial fibrillation: Code(s): I48.0 - Paroxysmal atrial fibrillation Status: Acute Assessment and Plan: rate control strategy no longer on anticoagulation due to a bleed in the past and fall risk (4) Hypertension: Code(s): I10 - Essential (primary) hypertension Status: Chronic Assessment and Plan: reasonable control follow trend of hemodynamics (5) Chronic diastolic congestive heart failure: Code(s): I50.32 - Chronic diastolic (congestive) heart failure Status: Acute Assessment and Plan: compensated makes some urine -- on bumex (6) Anemia: Code(s): D64.9 - Anemia, unspecified Status: Acute Assessment and Plan: due to ESRD Epogen with HD follow trend of H/H Will continue to follow. Subjective Date/time seen: 03/20/22 14:16 Tolerating dialysis treatment at the time of my visit (seen on HD at ~ 2:00PM); no apparent distress voiced; overall, feels a bit stronger since admission; no apparent distress voiced. Exam Narrative: General: WD/WN male in NAD Heart: normal S1 and S2; no rub Lungs: clear anteriorly but decreased at bases Abdomen: soft, nontender, nondistended, positive bowel sounds Extremities: no cyanosis or clubbing; trace edema Skin: bilateral toes with eschar noted Objective Data Vital Signs Vital Signs: Vital Signs Temp Pulse Resp BP Pulse Ox O2 Del Method 03/20/22 14:00 50 L 104/49 L 03/20/22 13:30 45 L 122/59 L 03/20/22 13:00 50 L 134/60 03/20/22 12:30 50 L 128/59 L 03/20/22 12:00 48 L 123/53 L 03/20/22 11:30 50 L 129/55 L 03/20/22 11:00 49 L 146/61 H 03/20/22 10:54 48 L 141/62 H 03/20/22 10:50 97.8 F 48 L 16 152/64 H 03/20/22 12:00 96.9 F L 50 L 16 124/55 L 100 03/20/22 08:00 96.9 F L 50 L 16 122/42 L 91 03/20/22 09:03 96 Room Air 03/20/22 04:00 97.2 F L 63 18 119/43 L 97 03/20/22 00:00 97.3 F L 58 L 19 122/45 L 96 03/20/22 02:18 80 18 03/20/22 02:05 79 18 03/19/22 20:28 80 18 03/19/22 20:15 96 Room Air 03/19/22 20:16 78 18 03/19/22 20:00 97 F L 55 L 20 124/45 L 97 03/19/22 20:00 Room Air 03/19/22 18:00 97.9 F 54 L 16 120/40 L 91 Intake/Output Intake/Output: Intake & Output 03/17/22 03/18/22 03/19/22 03/20/22 23:59 23:59 23:59 23:59 Intake Total 285 690 3977 120 Output Total 1999 1999 Balance 370 -1480 1040 -1880 Meds/Results Medications: Active Medications Generic Name Dose Route Start Last Admin Trade Name Freq PRN Reason Stop Dose Admin Acetaminophen 650 mg 03/15/22 09:33 03/19/22 10:23 Acetaminophen 325 Mg Tablet PO 650 mg Q4H PRN Administration Mild Pain (1-3) or Fever Albuterol 5 mg 03/15/22 14:00 03/20/22 09:02 Albuterol Sulfate Neb 2.5 Mg/3 Ml Inh INHALATION Not Given Q6HRT NOÉ Albuterol 2 puff 03/15/22 23:01 Albuterol Sulfate (*Sp) Aerosol 1 Puff INHALATION Q6HRT PRN Shortness Of Breath Aspirin 81 mg 03/16/22 09:00 03/20/22 08:47 Aspirin 81 Mg Enteric Tablet PO 81 mg DAILY NOÉ Administration Bumetanide 2 mg 03/16/22 09:00 03/20/22 08:47 Bumetanide 1 Mg Tablet PO 2 mg DAILY NOÉ Administration Dexamethasone Sodium Phosphate 6 mg 03/18/22 17:00 03/20/22 08:46 Dexamethasone Sod Phos Inj 4 Mg/Ml Via
[2022-03-20 16:49] LABS: Glucose Point of Care 139 mg/dl (65-105)
--- NOTE | 2022-03-20 18:45 | PM.IMPN ---
Progress Note: A&P Assessment and Plan (1) COVID: Code(s): U07.1 - COVID-19 Status: Acute (2) Weakness: Code(s): R53.1 - Weakness Status: Acute (3) ESRD (end stage renal disease) on dialysis: Code(s): N18.6 - End stage renal disease; Z99.2 - Dependence on renal dialysis Status: Acute (4) Paroxysmal atrial fibrillation: Code(s): I48.0 - Paroxysmal atrial fibrillation Status: Acute (5) Obstructive sleep apnea on CPAP: Code(s): G47.33 - Obstructive sleep apnea (adult) (pediatric); Z99.89 - Dependence on other enabling machines and devices Status: Acute (6) Hypertension: Code(s): I10 - Essential (primary) hypertension Status: Chronic (7) Chronic diastolic congestive heart failure: Code(s): I50.32 - Chronic diastolic (congestive) heart failure Status: Acute (8) Anemia: Code(s): D64.9 - Anemia, unspecified Status: Acute (9) Elevated troponin: Code(s): R79.89 - Other specified abnormal findings of blood chemistry Status: Acute (10) Vascular insufficiency: Code(s): I99.8 - Other disorder of circulatory system Status: Acute Plan Weakness felt to be multifactorial. Continue therapy. He has been started on dexamethasone and remdesivir. Will stop remdesivir since the risks outweigh the benefits in this situation. Heart rate is well controlled. Anticoagulation on hold due to history of bleeding. Other medical problems are well controlled. He does have a positive Homans sign and pedal edema but suspect pedal edema is probably related to his severe pulmonary hypertension. We will check Dopplers. Subjective Date/time seen: 03/20/22 18:45 Interval history: 71yo male with ESRD here for weakness and found to have COVID Assuming care. Chart reviewed. No SOB. No CP. Cough better. Exam Narrative: AF 153/52 74 18 97% ra Gen - NARD Chest - bibasilar inspiratocry crackles, nml RR. Right upper chest tunneled HD catheter in place CV - Irregularly irregular. Abd - soft. NT/ND. PD catheter in place. Ext - bilateral LE pitting edema. +Homans sign. Thrill/bruit in the LUE. 1+ DP pulses bilaterally Psych - nml mood Skin - chronic venous stasis skiin changes bilateral LE. Small dried eschars multiple to the bilateral feet but none actively bleeding. A larger eschar noted to the lower legs Objective Data Vital Signs Vital Signs: Vital Signs - 24 hr 03/19/22 20:00 03/19/22 20:00 03/19/22 20:16 Temperature 97 F L Pulse Rate 55 L 78 Respiratory Rate 20 18 Blood Pressure 124/45 L Pulse Oximetry 97 Oxygen Delivery Room Air 03/19/22 20:15 03/19/22 20:28 03/20/22 02:05 Temperature Pulse Rate 80 79 Respiratory Rate 18 18 Blood Pressure Pulse Oximetry 96 Oxygen Delivery Room Air 03/20/22 02:18 03/20/22 00:00 03/20/22 04:00 Temperature 97.3 F L 97.2 F L Pulse Rate 80 58 L 63 Respiratory Rate 18 19 18 Blood Pressure 122/45 L 119/43 L Pulse Oximetry 96 97 Oxygen Delivery 03/20/22 09:03 03/20/22 08:00 03/20/22 12:00 Temperature 96.9 F L 96.9 F L Pulse Rate 50 L 50 L Respiratory Rate 16 16 Blood Pressure 122/42 L 124/55 L Pulse Oximetry 96 91 100 Oxygen Delivery Room Air 03/20/22 10:50 03/20/22 10:54 03/20/22 11:00 Temperature 97.8 F Pulse Rate 48 L 48 L 49 L Respiratory Rate 16 Blood Pressure 152/64 H 141/62 H 146/61 H Pulse Oximetry Oxygen Delivery 03/20/22 11:30 03/20/22 12:00 03/20/22 12:30 Temperature Pulse Rate 50 L 48 L 50 L Respiratory Rate Blood Pressure 129/55 L 123/53 L 128/59 L Pulse Oximetry Oxygen Delivery 03/20/22 13:00 03/20/22 13:30 03/20/22 14:00 Temperature Pulse Rate 50 L 45 L 50 L Respiratory Rate Blood Pressure 134/60 122/59 L 104/49 L Pulse Oximetry Oxygen Delivery 03/20/22 14:43 03/20/22 16:00 03/20/22 17:00 Temperature 98.2 F 97.0 F L Pulse Rate 48 L 50 L
--- NOTE | 2022-03-20 20:31 | PC.NURSE ---
This RN unable to give heparin until too close to next dose. Heparin for 1400 non-administered.
[2022-03-20 22:43] LABS: Glucose Point of Care 165 mg/dl (65-105)
[2022-03-21] VITALS (12 sets, daily range): BP systolic 128–149; BP diastolic 40–61; PULSE 48–64; RESP 15–18; TEMP 36.1–36.7; O2SAT 91–99
[2022-03-21] MEDS: ALBUTEROL SULFATE NEB 2.5 MG/3 ML INH 5 MG INHALATION ×3 (02:21→13:25)
[2022-03-21] MEDS: HEPARIN SODIUM 5,000 UNITS/ML VIAL 5000 UNITS SUB-Q ×2 (06:27→15:11)
[2022-03-21 07:11] LABS: Hematocrit 25.8 % (42.0-52.0); Hemoglobin 8.4 g/dL (14.0-18.0); Immature Platelet Fraction Pct 2.7 % (0.9-11.2); Mean Corpuscular HGB Conc 32.6 g/dl (32-36); Mean Corpuscular Hemoglobin 32.3 pg (26-34); Mean Corpuscular Volume 99.2 fl (80-100); Mean Platelet Volume 9.5 fl (7.4-10.4); Platelet Count Result 128 k/mm3 (150-375); Red Cell Distribution Width 14.8 % (11.5-14.5); White Blood Count 4.8 K/mm3 (4.5-10.0)
[2022-03-21 07:37] LABS: INR 1.5; Prothrombin Time 17.6 Seconds (11.1-14.7)
[2022-03-21 08:50] LABS: Glucose Point of Care 121 mg/dl (65-105)
[2022-03-21 09:21] LABS: Alanine Aminotransferase 17 U/L (6-50); Albumin Level 2.7 g/dL (3.5-5.1); Anion Gap 6 mmol/L (8-16); Blood Urea Nitrogen 26 mg/dL (9-20); Calcium 8.4 mg/dL (8.4-10.2); Carbon Dioxide 28 mmol/L (22-30); Chloride 97 mmol/L (98-107); Estimated Glomerular Filt Rate 14; Glucose 123 mg/dL (65-110); Phosphorus 3.6 mg/dL (2.5-4.5); Sodium 131 mmol/L (137-145)
--- NOTE | 2022-03-21 09:47 | PCPTNOTE ---
Patient refused treatment this session due to c/o fatigue. Patient states he is too tierd to participate in therapy at this time. Patient was educated on the importance of participating in therapy to improve strength and mobility.
[2022-03-21] MEDS: DEXAMETHASONE SOD PHOS INJ 4 MG/ML VIAL 6 MG IV PUSH (10:10)
[2022-03-21] MEDS: BUMETANIDE 1 MG TABLET 2 MG PO (10:10)
[2022-03-21] MEDS: ASPIRIN 81 MG ENTERIC TABLET PO (10:10)
[2022-03-21] MEDS: PANTOPRAZOLE 40 MG TABLET PO (10:11)
--- NOTE | 2022-03-21 10:43 | PCRCNOTE ---
Window of time for administration has passed. See next scheduled administration.
[2022-03-21 12:33] LABS: Glucose Point of Care 139 mg/dl (65-105)
--- NOTE | 2022-03-21 13:04 | PM.PNNEP ---
Progress Note: A&P Assessment and Plan (1) End stage renal disease: Code(s): N18.6 - End stage renal disease Status: Chronic Assessment and Plan: HD tomorrow and continue M/W/F dialysis schedule follow electrolytes, volume status, and clearance (2) COVID: Code(s): U07.1 - COVID-19 Status: Acute Assessment and Plan: relatively asymptomatic but was requiring supplemental oxygen presumed etiology of weakness (3) Paroxysmal atrial fibrillation: Code(s): I48.0 - Paroxysmal atrial fibrillation Status: Acute Assessment and Plan: rate control strategy no longer on anticoagulation due to a bleed in the past and fall risk (4) Hypertension: Code(s): I10 - Essential (primary) hypertension Status: Chronic Assessment and Plan: reasonable control follow trend of hemodynamics (5) Chronic diastolic congestive heart failure: Code(s): I50.32 - Chronic diastolic (congestive) heart failure Status: Acute Assessment and Plan: compensated makes some urine -- on bumex (6) Anemia: Code(s): D64.9 - Anemia, unspecified Status: Acute Assessment and Plan: due to ESRD Epogen with HD follow trend of H/H Will continue to follow - not opposed to discharge from renal perspective if otherwise medically stable. Subjective Date/time seen: 03/21/22 13:04 Tolerated dialysis treatment yesterday without any issues or problems; no apparent distress voiced; no issues/events overnight or earlier this morning; cough seems better as well. Exam Narrative: General: WD/WN male in NAD Heart: normal S1 and S2; no rub Lungs: clear anteriorly but decreased at bases Abdomen: soft, nontender, nondistended, positive bowel sounds Extremities: no cyanosis or clubbing; trace edema Skin: bilateral toes with eschar noted Objective Data Vital Signs Vital Signs: Vital Signs Temp Pulse Resp BP Pulse Ox O2 Del Method O2 Flow Rate 03/21/22 12:00 98.1 F 56 L 18 141/53 H 96 03/21/22 08:00 97.8 F 58 L 16 143/51 H 97 03/21/22 04:00 97.6 F 57 L 18 128/50 L 94 03/21/22 03:14 62 16 03/21/22 02:20 60 15 03/21/22 00:00 97.0 F L 48 L 18 140/48 L 95 03/20/22 21:30 85 15 89 L Nasal Cannula 2 03/20/22 20:00 Room Air 03/20/22 20:45 97.5 F L 58 L 20 126/50 L 94 03/20/22 20:52 83 15 03/20/22 19:49 85 15 03/20/22 17:00 74 18 03/20/22 16:00 97.0 F L 50 L 16 153/52 H 97 Intake/Output Intake/Output: Intake & Output 03/18/22 03/19/22 03/20/22 03/21/22 23:59 23:59 23:59 23:59 Intake Total 520 1040 730 690 Output Total 1999 1999 Balance -4560 1040 -1270 690 Meds/Results Medications: Active Medications Generic Name Dose Route Start Last Admin Trade Name Freq PRN Reason Stop Dose Admin Acetaminophen 650 mg 03/15/22 09:33 03/19/22 10:23 Acetaminophen 325 Mg Tablet PO 650 mg Q4H PRN Administration Mild Pain (1-3) or Fever Albuterol 5 mg 03/15/22 14:00 03/21/22 13:25 Albuterol Sulfate Neb 2.5 Mg/3 Ml Inh INHALATION 5 mg Q6HRT NOÉ Administration Albuterol 2 puff 03/15/22 23:01 Albuterol Sulfate (*Sp) Aerosol 1 Puff INHALATION Q6HRT PRN Shortness Of Breath Aspirin 81 mg 03/16/22 09:00 03/21/22 10:10 Aspirin 81 Mg Enteric Tablet PO 81 mg DAILY NOÉ Administration Bumetanide 2 mg 03/16/22 09:00 03/21/22 10:10 Bumetanide 1 Mg Tablet PO 2 mg DAILY NOÉ Administration Dexamethasone Sodium Phosphate 6 mg 03/18/22 17:00 03/21/22 10:10 Dexamethasone Sod Phos Inj 4 Mg/Ml Vial IV PUSH 6 mg DAILY NOÉ Administration Heparin Sodium (Porcine) 5,000 units 03/18/22 22:00 03/21/22 06:27 Heparin Sodium 5,000 Units/Ml Vial SUB-Q 5,000 units Q8HR NOÉ Administration Hydralazine HCl 10 mg 03/15/22 23:01 Hydralazine Hcl 20 Mg/Ml Vial IV PU
--- NOTE | 2022-03-21 16:52 | PM.IMPN ---
Progress Note: A&P Assessment and Plan (1) COVID: Code(s): U07.1 - COVID-19 Status: Acute (2) Weakness: Code(s): R53.1 - Weakness Status: Acute (3) ESRD (end stage renal disease) on dialysis: Code(s): N18.6 - End stage renal disease; Z99.2 - Dependence on renal dialysis Status: Acute (4) Paroxysmal atrial fibrillation: Code(s): I48.0 - Paroxysmal atrial fibrillation Status: Acute (5) Obstructive sleep apnea on CPAP: Code(s): G47.33 - Obstructive sleep apnea (adult) (pediatric); Z99.89 - Dependence on other enabling machines and devices Status: Acute (6) Hypertension: Code(s): I10 - Essential (primary) hypertension Status: Chronic (7) Chronic diastolic congestive heart failure: Code(s): I50.32 - Chronic diastolic (congestive) heart failure Status: Acute (8) Anemia: Code(s): D64.9 - Anemia, unspecified Status: Acute (9) Elevated troponin: Code(s): R79.89 - Other specified abnormal findings of blood chemistry Status: Acute (10) Vascular insufficiency: Code(s): I99.8 - Other disorder of circulatory system Status: Acute Plan Weakness felt to be multifactorial. Continue therapy. He has been started on dexamethasone and remdesivir but remdesivir stopped. Heart rate is well controlled. Other medical problems are well controlled. He did have a positive Homans sign but doppler negative for DVT. Weaned to room air. Home tomorrow if he is accepted back at assisted living. Subjective Date/time seen: 03/21/22 16:52 Interval history: 71yo male with ESRD here for weakness and found to have COVID Feeling well. He is dizzy when he sits at the side of the bed this is not uncommon for him. He is noted to have bruising behind his right leg but does not recall how long that and there or why that happened. Exam Narrative: AF 98.1 141/53 64 16 94% ra Gen - NARD Chest -distant breath sound, nml RR. Right upper chest tunneled HD catheter in place CV -regular rate and. Abd - soft. NT/ND. PD catheter in place. Ext - bilateral LE pitting edema. Thrill/bruit in the LUE. Psych - nml mood Skin -bruising noted posterior right calf. Also chronic venous stasis skin changes Objective Data Vital Signs Vital Signs: Vital Signs - 24 hr 03/20/22 17:00 03/20/22 19:49 03/20/22 20:52 Temperature Pulse Rate 74 85 83 Respiratory Rate 18 15 15 Blood Pressure Pulse Oximetry Oxygen Delivery Oxygen Flow Rate Fraction of Inspired Oxygen 03/20/22 20:45 03/20/22 20:00 03/20/22 21:30 Temperature 97.5 F L Pulse Rate 58 L 85 Respiratory Rate 20 15 Blood Pressure 126/50 L Pulse Oximetry 94 89 L Oxygen Delivery Room Air Nasal Cannula Oxygen Flow Rate 2 Fraction of Inspired Oxygen 28 03/21/22 00:00 03/21/22 02:20 03/21/22 03:14 Temperature 97.0 F L Pulse Rate 48 L 60 62 Respiratory Rate 18 15 16 Blood Pressure 140/48 L Pulse Oximetry 95 Oxygen Delivery Oxygen Flow Rate Fraction of Inspired Oxygen 03/21/22 04:00 03/21/22 08:00 03/21/22 12:00 Temperature 97.6 F 97.8 F 98.1 F Pulse Rate 57 L 58 L 56 L Respiratory Rate 18 16 18 Blood Pressure 128/50 L 143/51 H 141/53 H Pulse Oximetry 94 97 96 Oxygen Delivery Oxygen Flow Rate Fraction of Inspired Oxygen 03/21/22 13:25 03/21/22 13:36 03/21/22 13:36 Temperature Pulse Rate 60 64 Respiratory Rate 16 16 Blood Pressure Pulse Oximetry 94 Oxygen Delivery Room Air Oxygen Flow Rate Fraction of Inspired Oxygen Intake/Output Intake/Output: Intake & Output 03/18/22 03/19/22 03/20/22 03/21/22 23:59 23:59 23:59 23:59 Intake Total 520 1040 730 690 Output Total 1999 1999 Balance -1480 1040 -1270 690 Meds/Results Medications: Active Medications Generic Name Dose Route Start Last Admin Trade Name Freq PRN Reason Stop Dose Admin Acetaminophen 650 mg
[2022-03-21 17:15] LABS: Glucose Point of Care 198 mg/dl (65-105)
[2022-03-21 20:56] LABS: Glucose Point of Care 167 mg/dl (65-105)
--- NOTE | 2022-03-21 23:08 | PCRCNOTE ---
Window of time for administration has passed. See next scheduled administration.
[2022-03-22] VITALS (28 sets, daily range): BP systolic 120–163; BP diastolic 34–81; PULSE 46–100; RESP 16–20; TEMP 36–36.6; O2SAT 94–96
[2022-03-22] MEDS: ALBUTEROL SULFATE NEB 2.5 MG/3 ML INH 5 MG INHALATION ×2 (02:10→21:35)
[2022-03-22 07:32] LABS: Hematocrit 25.7 % (42.0-52.0); Hemoglobin 8.3 g/dL (14.0-18.0); Mean Corpuscular HGB Conc 32.3 g/dl (32-36); Mean Corpuscular Hemoglobin 30.9 pg (26-34); Mean Corpuscular Volume 95.5 fl (80-100); Mean Platelet Volume 9.3 fl (7.4-10.4); Platelet Count Result 114 k/mm3 (150-375); Red Blood Count 2.69 M/mm3 (4.6-6.20); Red Cell Distribution Width 14.8 % (11.5-14.5); White Blood Count 5.5 K/mm3 (4.5-10.0)
[2022-03-22 07:45] LABS: Alanine Aminotransferase 17 U/L (6-50); Albumin Level 2.8 g/dL (3.5-5.1); Anion Gap 5 mmol/L (8-16); Blood Urea Nitrogen 33 mg/dL (9-20); Calcium 8.4 mg/dL (8.4-10.2); Carbon Dioxide 29 mmol/L (22-30); Chloride 99 mmol/L (98-107); Estimated Glomerular Filt Rate 11; Glucose 101 mg/dL (65-110); Magnesium 2.1 mg/dL (1.6-2.3); Phosphorus 3.6 mg/dL (2.5-4.5); Potassium 4.4 mmol/L (3.4-5.0); Sodium 133 mmol/L (137-145)
[2022-03-22 08:11] LABS: Glucose Point of Care 105 mg/dl (65-105)
[2022-03-22 08:18] LABS: INR 1.6; Prothrombin Time 18.2 Seconds (11.1-14.7)
[2022-03-22] MEDS: ASPIRIN 81 MG ENTERIC TABLET PO (09:10)
[2022-03-22] MEDS: PANTOPRAZOLE 40 MG TABLET PO (09:11)
--- NOTE | 2022-03-22 11:06 | PCSTNOTE ---
Bedside swallowing evaluation attempted, patient is unavailable due to dialysis. Will plan to evaluate tomorrow.
[2022-03-22 12:02] LABS: Glucose Point of Care 97 mg/dl (65-105)
--- NOTE | 2022-03-22 13:06 | PM.PNNEP ---
Progress Note: A&P Assessment and Plan (1) End stage renal disease: Code(s): N18.6 - End stage renal disease Status: Chronic Assessment and Plan: HD today and continue M/W/F dialysis schedule follow electrolytes, volume status, and clearance (2) COVID: Code(s): U07.1 - COVID-19 Status: Acute Assessment and Plan: relatively asymptomatic but was requiring supplemental oxygen presumed etiology of weakness (3) Paroxysmal atrial fibrillation: Code(s): I48.0 - Paroxysmal atrial fibrillation Status: Acute Assessment and Plan: rate control strategy no longer on anticoagulation due to a bleed in the past and fall risk (4) Hypertension: Code(s): I10 - Essential (primary) hypertension Status: Chronic Assessment and Plan: reasonable control follow trend of hemodynamics (5) Chronic diastolic congestive heart failure: Code(s): I50.32 - Chronic diastolic (congestive) heart failure Status: Acute Assessment and Plan: compensated makes some urine -- on bumex (6) Anemia: Code(s): D64.9 - Anemia, unspecified Status: Acute Assessment and Plan: due to ESRD Epogen with HD follow trend of H/H Will continue to follow. Subjective Date/time seen: 03/22/22 13:06 Tolerating dialysis treatment at the time of my visit (seen on HD at 12:50PM); no new issues or problems but noted to have significant coughing since start of dialysis treatment per HD nurse; otherwise, no new issues or complaints voiced. Exam Narrative: General: WD/WN male in NAD Heart: normal S1 and S2; no rub Lungs: clear anteriorly but decreased at bases Abdomen: soft, nontender, nondistended, positive bowel sounds Extremities: no cyanosis or clubbing; trace edema Skin: bilateral toes with eschar present Objective Data Vital Signs Vital Signs: Vital Signs 03/22/22 02:15 03/22/22 03:17 03/22/22 08:03 Temperature 97.1 F L 97.6 F Pulse Rate 52 L 56 L Respiratory Rate 18 20 Blood Pressure 150/40 H 149/51 H Pulse Oximetry 95 96 94 Oxygen Delivery Nasal Cannula Oxygen Flow Rate 2 03/22/22 08:40 03/22/22 09:24 03/22/22 09:27 Temperature 97.6 F Pulse Rate 52 L Respiratory Rate 20 Blood Pressure 163/69 H Pulse Oximetry 95 Oxygen Delivery Nasal Cannula Oxygen Flow Rate 2 2 03/22/22 09:31 03/22/22 09:40 03/22/22 10:00 Temperature Pulse Rate 48 L 49 L 48 L Respiratory Rate Blood Pressure 158/81 H 163/70 H 151/63 H Pulse Oximetry Oxygen Delivery Oxygen Flow Rate 03/22/22 10:20 03/22/22 10:40 Temperature Pulse Rate 48 L 48 L Respiratory Rate Blood Pressure 152/65 H 145/60 H Pulse Oximetry Oxygen Delivery Oxygen Flow Rate 03/22/22 11:00 03/22/22 11:20 03/22/22 11:40 Temperature Pulse Rate 48 L 46 L 46 L Respiratory Rate Blood Pressure 139/56 L 137/63 136/58 L Pulse Oximetry Oxygen Delivery Oxygen Flow Rate 03/22/22 12:00 03/22/22 12:20 03/22/22 12:40 Temperature Pulse Rate 46 L 46 L 46 L Respiratory Rate Blood Pressure 126/53 L 128/53 L 130/55 L Pulse Oximetry Oxygen Delivery Oxygen Flow Rate Intake/Output Intake/Output: Intake & Output 03/19/22 03/20/22 03/21/22 03/22/22 23:59 23:59 23:59 23:59 Intake Total 3982 518 6626 480 Output Total 1999 Balance 1040 -1270 1530 480 Meds/Results Medications: Active Medications Generic Name Dose Route Start Last Admin Trade Name Freq PRN Reason Stop Dose Admin Acetaminophen 650 mg 03/15/22 09:33 03/19/22 10:23 Acetaminophen 325 Mg Tablet PO 650 mg Q4H PRN Administration Mild Pain (1-3) or Fever Albuterol 5 mg 03/15/22 14:00 03/22/22 08:40 Albuterol Sulfate Neb 2.5 Mg/3 Ml Inh INHALATION Not Given Q6HRT NOÉ Albuterol 2 puff 03/15/22 23:01 Albuterol Sulfate (*Sp) Aerosol 1 Puff INHALATION Q6HRT PRN
--- NOTE | 2022-03-22 15:37 | PCOTNOTE ---
Patient unavailable earlier when attempted to see for OT, in dialysis. Will continue plan of care for OT.
--- NOTE | 2022-03-22 16:12 | PCRCNOTE ---
Window of time for administration has passed. See next scheduled administration.
--- NOTE | 2022-03-22 16:44 | PM.IMPN ---
Progress Note: A&P Assessment and Plan (1) COVID: Code(s): U07.1 - COVID-19 Status: Acute (2) Weakness: Code(s): R53.1 - Weakness Status: Acute (3) ESRD (end stage renal disease) on dialysis: Code(s): N18.6 - End stage renal disease; Z99.2 - Dependence on renal dialysis Status: Acute (4) Paroxysmal atrial fibrillation: Code(s): I48.0 - Paroxysmal atrial fibrillation Status: Acute (5) Obstructive sleep apnea on CPAP: Code(s): G47.33 - Obstructive sleep apnea (adult) (pediatric); Z99.89 - Dependence on other enabling machines and devices Status: Acute (6) Hypertension: Code(s): I10 - Essential (primary) hypertension Status: Chronic (7) Chronic diastolic congestive heart failure: Code(s): I50.32 - Chronic diastolic (congestive) heart failure Status: Acute (8) Anemia: Code(s): D64.9 - Anemia, unspecified Status: Acute (9) Elevated troponin: Code(s): R79.89 - Other specified abnormal findings of blood chemistry Status: Acute (10) Vascular insufficiency: Code(s): I99.8 - Other disorder of circulatory system Status: Acute Plan Weakness felt to be multifactorial. Continue therapy. He was started on dexamethasone and remdesivir but remdesivir stopped. Heart rate is well controlled. Other medical problems are well controlled. He did have a positive Homans sign but doppler negative for DVT. CXR today showing more consolidated RLL on my review. Having more productive cough. Speech therapy ordered to exclude aspiration but unable to see today. Will start Rocephin and Doxy for post-COVID PNA. Check Sputum Subjective Date/time seen: 03/22/22 16:45 Interval history: 71yo male with ESRD here for weakness and found to have COVID Increase in cough productive of brown sputum. Toelrated HD today. feels very weak. Exam Narrative: AF 97.4 126/71 53 18 94% 2L Gen - NARD Chest - bibasilar inspiratory crackles. Right upper chest tunneled HD catheter in place CV - RRR S1/S2 Abd - soft. NT/ND. PD catheter in place. Ext - mild LE edema. Thrill/bruit in the LUE. Psych - nml mood Skin - bruising noted posterior right calf. Also chronic venous stasis skin changes Objective Data Vital Signs Vital Signs: Vital Signs - 24 hr 03/21/22 19:36 03/21/22 20:00 03/21/22 23:33 Temperature 97.6 F 97.8 F Pulse Rate 51 L 51 L 58 L Respiratory Rate 18 18 18 Blood Pressure 149/43 H 131/40 L Pulse Oximetry 91 91 99 Oxygen Delivery Nasal Cannula Oxygen Flow Rate 2 03/22/22 02:10 03/22/22 02:48 03/22/22 02:15 Temperature Pulse Rate 54 L 55 L Respiratory Rate 16 16 Blood Pressure Pulse Oximetry 95 Oxygen Delivery Nasal Cannula Oxygen Flow Rate 2 03/22/22 03:17 03/22/22 08:03 03/22/22 08:40 Temperature 97.1 F L 97.6 F Pulse Rate 52 L 56 L Respiratory Rate 18 20 Blood Pressure 150/40 H 149/51 H Pulse Oximetry 96 94 95 Oxygen Delivery Nasal Cannula Oxygen Flow Rate 2 03/22/22 09:24 03/22/22 09:27 03/22/22 09:31 Temperature 97.6 F Pulse Rate 52 L 48 L Respiratory Rate 20 Blood Pressure 163/69 H 158/81 H Pulse Oximetry Oxygen Delivery Oxygen Flow Rate 2 03/22/22 09:40 03/22/22 10:00 03/22/22 10:20 Temperature Pulse Rate 49 L 48 L 48 L Respiratory Rate Blood Pressure 163/70 H 151/63 H 152/65 H Pulse Oximetry Oxygen Delivery Oxygen Flow Rate 03/22/22 10:40 03/22/22 08:00 03/22/22 11:00 Temperature Pulse Rate 48 L 48 L Respiratory Rate Blood Pressure 145/60 H 139/56 L Pulse Oximetry 95 Oxygen Delivery Nasal Cannula Oxygen Flow Rate 2 03/22/22 11:20 03/22/22 11:40 03/22/22 12:00 Temperature Pulse Rate 46 L 46 L 46 L Respiratory Rate Blood Pressure 137/63 136/58 L 126/53 L Pulse Oximetry Oxygen Delivery Oxygen Flow Rate 03/22/22 12:20 03/22/22 12:40 03/22/22 13:01 [facility]
[2022-03-22 17:26] LABS: Glucose Point of Care 72 mg/dl (65-105)
[2022-03-22] MEDS: DOXYCYCLINE HYCLATE 100 MG TABLET PO (20:05)
[2022-03-22 21:22] LABS: Glucose Point of Care 85 mg/dl (65-105)
[2022-03-22] MEDS: HEPARIN SODIUM 5,000 UNITS/ML VIAL 5000 UNITS SUB-Q (22:11)
[2022-03-23] VITALS (14 sets, daily range): BP systolic 114–144; BP diastolic 32–61; PULSE 46–74; RESP 16–18; TEMP 36.1–36.4; O2SAT 94–100
[2022-03-23] MEDS: ALBUTEROL SULFATE NEB 2.5 MG/3 ML INH 5 MG INHALATION ×4 (03:04→21:00)
[2022-03-23 07:31] LABS: Hematocrit 25.7 % (42.0-52.0); Hemoglobin 8.1 g/dL (14.0-18.0); Mean Corpuscular HGB Conc 31.5 g/dl (32-36); Mean Corpuscular Hemoglobin 30.8 pg (26-34); Mean Corpuscular Volume 97.7 fl (80-100); Platelet Count Result 105 k/mm3 (150-375); Red Blood Count 2.63 M/mm3 (4.6-6.20); Red Cell Distribution Width 15.1 % (11.5-14.5); White Blood Count 6.5 K/mm3 (4.5-10.0)
[2022-03-23 07:42] LABS: Alanine Aminotransferase 17 U/L (6-50); Albumin Level 2.7 g/dL (3.5-5.1); Anion Gap 7 mmol/L (8-16); Blood Urea Nitrogen 19 mg/dL (9-20); Calcium 8.1 mg/dL (8.4-10.2); Carbon Dioxide 29 mmol/L (22-30); Chloride 99 mmol/L (98-107); Estimated Glomerular Filt Rate 18; Glucose 103 mg/dL (65-110); INR 1.5; Magnesium 1.9 mg/dL (1.6-2.3); Phosphorus 2.5 mg/dL (2.5-4.5); Potassium 3.6 mmol/L (3.4-5.0); Prothrombin Time 17.3 Seconds (11.1-14.7); Sodium 135 mmol/L (137-145)
[2022-03-23 07:47] LABS: Glucose Point of Care 102 mg/dl (65-105)
[2022-03-23] MEDS: HEPARIN SODIUM 5,000 UNITS/ML VIAL 5000 UNITS SUB-Q ×3 (08:52→21:25)
[2022-03-23] MEDS: DEXAMETHASONE SOD PHOS INJ 4 MG/ML VIAL 6 MG IV PUSH (08:52)
[2022-03-23] MEDS: BUMETANIDE 1 MG TABLET 2 MG PO (08:53)
[2022-03-23] MEDS: DOXYCYCLINE HYCLATE 100 MG TABLET PO ×2 (08:53→20:29)
[2022-03-23] MEDS: PANTOPRAZOLE 40 MG TABLET PO (08:53)
[2022-03-23] MEDS: ASPIRIN 81 MG ENTERIC TABLET PO (08:54)
[2022-03-23] MEDS: ACETAMINOPHEN 325 MG TABLET 650 MG PO (11:40)
--- NOTE | 2022-03-23 13:30 | PM.PNNEP ---
Progress Note: A&P Assessment and Plan (1) End stage renal disease: Code(s): N18.6 - End stage renal disease Status: Chronic Assessment and Plan: HD yesterday and continue M/W/ dialysis schedule follow electrolytes, volume status, and clearance (2) COVID: Code(s): U07.1 - COVID-19 Status: Acute Assessment and Plan: relatively asymptomatic but was requiring supplemental oxygen presumed etiology of weakness (3) Pneumonia: Code(s): J18.9 - Pneumonia, unspecified organism Status: Acute Assessment and Plan: suspected based on productive cough and CXR findings COVID related versus aspiration? on antibiotics continue supportive therapy (4) Paroxysmal atrial fibrillation: Code(s): I48.0 - Paroxysmal atrial fibrillation Status: Acute Assessment and Plan: rate control strategy no longer on anticoagulation due to a bleed in the past and fall risk (5) Hypertension: Code(s): I10 - Essential (primary) hypertension Status: Chronic Assessment and Plan: reasonable control follow trend of hemodynamics (6) Chronic diastolic congestive heart failure: Code(s): I50.32 - Chronic diastolic (congestive) heart failure Status: Acute Assessment and Plan: compensated makes some urine -- on bumex (7) Anemia: Code(s): D64.9 - Anemia, unspecified Status: Acute Assessment and Plan: due to ESRD Epogen with HD follow trend of H/H Will continue to follow. Subjective Date/time seen: 03/23/22 13:30 Tolerated dialysis treatment yesterday without any issues or problems; with ongoing productive cough and CXR findings, possible concern for pneumonia so started on antibiotic therapy; otherwise, no apparent distress noted; feels reasonably well. Exam Narrative: General: WD/WN male in NAD Heart: normal S1 and S2; no rub Lungs: clear anteriorly but decreased at bases Abdomen: soft, nontender, nondistended, positive bowel sounds Extremities: no cyanosis or clubbing; trace edema Skin: bilateral toes with eschar Objective Data Vital Signs Vital Signs: Vital Signs Temp Pulse Resp BP Pulse Ox O2 Del Method 03/23/22 12:00 97.6 F 53 L 18 124/38 L 95 03/23/22 08:00 Room Air 03/23/22 08:53 60 16 03/23/22 08:45 94 Room Air 01/07/23 08:40 66 16 03/23/22 08:00 97.3 F L 46 L 18 114/32 L 96 03/23/22 04:00 97.6 F 47 L 18 121/43 L 96 03/23/22 03:04 62 16 03/22/22 23:49 97.3 F L 100 18 140/47 L 95 03/22/22 22:33 136/42 L 03/22/22 20:00 94 Room Air 03/22/22 21:36 60 03/22/22 20:00 97.3 F L 84 18 120/34 L 94 Intake/Output Intake/Output: Intake & Output 03/20/22 03/21/22 03/22/22 03/23/22 23:59 23:59 23:59 23:59 Intake Total 730 1530 1220 320 Output Total 1999 2200 Balance -1270 1530 -980 320 Meds/Results Medications: Active Medications Generic Name Dose Route Start Last Admin Trade Name Freq PRN Reason Stop Dose Admin Acetaminophen 650 mg 03/15/22 09:33 03/23/22 11:40 Acetaminophen 325 Mg Tablet PO 650 mg Q4H PRN Administration Mild Pain (1-3) or Fever Albuterol 5 mg 03/15/22 14:00 03/23/22 15:22 Albuterol Sulfate Neb 2.5 Mg/3 Ml Inh INHALATION 5 mg Q6HRT NOÉ Administration Albuterol 2 puff 03/15/22 23:01 Albuterol Sulfate (*Sp) Aerosol 1 Puff INHALATION Q6HRT PRN Shortness Of Breath Aspirin 81 mg 03/16/22 09:00 03/23/22 08:54 Aspirin 81 Mg Enteric Tablet PO 81 mg DAILY NOÉ Administration Bumetanide 2 mg 03/16/22 09:00 03/23/22 08:53 Bumetanide 1 Mg Tablet PO 2 mg DAILY NOÉ Administration Dexamethasone Sodium Phosphate 6 mg 03/18/22 17:00 03/23/22 08:52 Dexamethasone Sod Phos Inj 4 Mg/Ml Vial IV PUSH 6 mg DAILY NOÉ Administration Doxycycline Hyclate 100 mg 03/22/22 21:00 0107
--- NOTE | 2022-03-23 13:30 | P.PNNP_ITS ---
Progress Note: A&P Assessment and Plan (1) End stage renal disease: Code(s): N18.6 - End stage renal disease Status: Chronic Assessment and Plan: * HD yesterday and continue M/W/ dialysis schedule * follow electrolytes, volume status, and clearance (2) COVID: Code(s): U07.1 - COVID-19 Status: Acute Assessment and Plan: * relatively asymptomatic but was requiring supplemental oxygen * presumed etiology of weakness (3) Pneumonia: Code(s): J18.9 - Pneumonia, unspecified organism Status: Acute Assessment and Plan: * suspected based on productive cough and CXR findings * COVID related versus aspiration? * on antibiotics * continue supportive therapy (4) Paroxysmal atrial fibrillation: Code(s): I48.0 - Paroxysmal atrial fibrillation Status: Acute Assessment and Plan: * rate control strategy * no longer on anticoagulation due to a bleed in the past and fall risk (5) Hypertension: Code(s): I10 - Essential (primary) hypertension Status: Chronic Assessment and Plan: * reasonable control * follow trend of hemodynamics (6) Chronic diastolic congestive heart failure: Code(s): I50.32 - Chronic diastolic (congestive) heart failure Status: Acute Assessment and Plan: * compensated * makes some urine -- on bumex (7) Anemia: Code(s): D64.9 - Anemia, unspecified Status: Acute Assessment and Plan: * due to ESRD * Epogen with HD * follow trend of H/H Will continue to follow. Subjective Date/time seen: 03/23/22 13:30 Tolerated dialysis treatment yesterday without any issues or problems; with ongoing productive cough and CXR findings, possible concern for pneumonia so started on antibiotic therapy; otherwise, no apparent distress noted; feels reasonably well. Exam Narrative: General: WD/WN male in NAD Heart: normal S1 and S2; no rub Lungs: clear anteriorly but decreased at bases Abdomen: soft, nontender, nondistended, positive bowel sounds Extremities: no cyanosis or clubbing; trace edema Skin: bilateral toes with eschar Objective Data Vital Signs Vital Signs: Vital Signs Temp Pulse Resp BP Pulse Ox O2 Del Method 03/23/22 12:00 97.6 F 53 L 18 124/38 L 95 03/23/22 08:00 Room Air 03/23/22 08:53 60 16 03/23/22 08:45 94 Room Air 03/23/22 08:40 66 16 03/23/22 08:00 97.3 F L 46 L 18 114/32 L 96 03/23/22 04:00 97.6 F 47 L 18 121/43 L 96 03/23/22 03:04 62 16 03/22/22 23:49 97.3 F L 100 18 140/47 L 95 03/22/22 22:33 136/42 L 03/22/22 20:00 94 Room Air 03/22/22 21:36 60 03/22/22 20:00 97.3 F L 84 18 120/34 L 94 Intake/Output Intake/Output: Intake & Output 03/20/22 03/21/22 03/22/22 03/23/22 23:59 23:59 23:59 23:59 Intake Total 730 1530 1220 320 Output Total 1999 2200 Balance -1270 1530 -980 320 Meds/Results Medications: Active Medications Generic Name Dose Route Start Last Admin Trade Name [place] PRN Reason Stop Dose Admin Acetaminophen 650 mg 03/15/22
--- NOTE | 2022-03-23 15:11 | PM.IMPN ---
Progress Note: A&P Assessment and Plan (1) Confusion: Code(s): R41.0 - Disorientation, unspecified Status: Acute Assessment and Plan: Patient confused today. Could be chronic with mild dementia but no mention in the chart regarding confusion. Will check B12, folate, ammonia, tsh. No focal weakness but will check CT brain given his untreated AFib. Will re-evaluate in the morning to see if he is improved. No medications that might cause this. Related to PNA? Continue abx. Follow (2) COVID: Code(s): U07.1 - COVID-19 Status: Acute Assessment and Plan: The patient was diagnosed with COVID on 03/12/2022.?He was started on dexamethasone and remdesivir but remdesivir stopped. CXR 03/15 showing elevated right hemidiaphragm and probably atelectasis. Repeat CXR 03/22 showing right basilar and midlung atelectasis. Speech therapy showing patient can swallow safely. Will continue Rocephin and Doxy for post-COVID PNA (Day 2). (3) Weakness: Code(s): R53.1 - Weakness Status: Acute Assessment and Plan: May need SNF when noting the PT/OT evaluation. He was started on dexamethasone and remdesivir but remdesivir stopped. Patient on and off O2 still. Change to oral Dexamethasone. (4) Elevated troponin: Code(s): R79.89 - Other specified abnormal findings of blood chemistry Status: Acute Assessment and Plan: Patient presented with complaints of weakness. He denies chest pain. Troponin elevate at 0.19 and was trending down on repeat. EKG showing no change from prior. He presented. He has a hx of chronically elevated Trop. [place] elevated Trop related to COVID and ESRD. (5) ESRD (end stage renal disease) on dialysis: Code(s): N18.6 - End stage renal disease; Z99.2 - Dependence on renal dialysis Status: Acute Assessment and Plan: Patietn with ESRD. Nephrology consulted. Continue HD per their recommendations. (6) Paroxysmal atrial fibrillation: Code(s): I48.0 - Paroxysmal atrial fibrillation Status: Acute Assessment and Plan: EKG on admission showing slow AFib. Not on rate lowering agents.Heart rate remaining well controlled. Not on anticoagulation chronically. (7) Obstructive sleep apnea on CPAP: Code(s): G47.33 - Obstructive sleep apnea (adult) (pediatric); Z99.89 - Dependence on other enabling machines and devices Status: Acute Assessment and Plan: Refusing BiPAP. Encourage compliance (8) Chronic diastolic congestive heart failure: Code(s): I50.32 - Chronic diastolic (congestive) heart failure Status: Acute Assessment and Plan: Stable. Continue to use dialysis to control fluid status. (9) Anemia: Code(s): D64.9 - Anemia, unspecified Status: Acute Assessment and Plan: Patient with chronic anemia the runs in the 8-9 range. [place] related to his end-stage renal disease. (10) Vascular insufficiency: Code(s): I99.8 - Other disorder of circulatory system Status: Acute Assessment and Plan: Lower extremity arterial ultrasound showed decreased left TBI consistent with left-sided intercourse disease and nondiagnostic ABIs. Will defer to primary care doctor for further evaluation and treatment. Continue ASA. Add Lipitor. Subjective Date/time seen: 03/23/22 15:11 Interval history: 71yo male with ESRD here for weakness and found to have COVID Feeling okay. No CP or SOB. No abd pain. Denies feeling confused. Speech therapy bedside evaluation was okay. Exam Narrative: AF 97.6 124/38 53 18 95% ra Gen - NARD Chest - bibasilar inspiratory crackles. Right upper chest tunneled HD catheter in place CV - RRR S1/S2 Abd - soft. NT/ND. PD catheter in place. Ext - mild LE edema. Thrill/bruit in the LUE. Neuro - no focal weakness. alert, confused. Oriented to name, location. Psych - nml mood Skin - bruising noted posterior right
--- NOTE | 2022-03-23 15:29 | PCSTNOTE ---
Bedside swallowing evaluation. Patient was given trials of thin liquids by straw, pureed food by spoon, and solid by fingers (ben cracker). Oral and oral prepatory stages within normal limits. No signs of aspiration. No coughing, vocal quality clear after swallow. Patient reports that he does not have any difficulty swallowing and that his appetite is good. Per nursing he sometimes refuses to eat. Please note: silent aspiration cannot be ruled out at bedside. Recommendation: regular consistency diet and thin liquids. No speech therapy recommended. Thank you for the referral of this patient.
[2022-03-23 16:03] LABS: Ammonia < 9 umol/L (9-30)
[2022-03-23 17:10] LABS: Folic Acid 18.1 ng/mL (2.76->20)
[2022-03-23 22:09] LABS: Free T4 Free Thyroxine Reflex 1.24 ng/dL (0.78-2.19)
[2022-03-23 22:48] LABS: Glucose Point of Care 210 mg/dl (65-105)
[2022-03-23 23:06] LABS: Total Triiodothyronine (T3) 0.48 NG/ML (0.97-1.69)
[2022-03-24] VITALS (11 sets, daily range): BP systolic 136–154; BP diastolic 44–54; PULSE 45–91; RESP 14–22; TEMP 35.8–36.4; O2SAT 93–100
[2022-03-24] MEDS: ALBUTEROL SULFATE NEB 2.5 MG/3 ML INH 5 MG INHALATION ×3 (03:50→20:58)
[2022-03-24] MEDS: HEPARIN SODIUM 5,000 UNITS/ML VIAL 5000 UNITS SUB-Q ×3 (05:01→20:12)
[2022-03-24 06:37] LABS: Hematocrit 24.4 % (42.0-52.0); Immature Platelet Fraction Pct 2.4 % (0.9-11.2); Mean Corpuscular HGB Conc 32.8 g/dl (32-36); Mean Corpuscular Hemoglobin 31.5 pg (26-34); Mean Corpuscular Volume 96.1 fl (80-100); Mean Platelet Volume 9.6 fl (7.4-10.4); Platelet Count Result 121 k/mm3 (150-375); Red Blood Count 2.54 M/mm3 (4.6-6.20); Red Cell Distribution Width 15.6 % (11.5-14.5); White Blood Count 5.8 K/mm3 (4.5-10.0)
[2022-03-24 06:51] LABS: Albumin Level 2.7 g/dL (3.5-5.1); Anion Gap 5 mmol/L (8-16); Blood Urea Nitrogen 26 mg/dL (9-20); Calcium 8.1 mg/dL (8.4-10.2); Carbon Dioxide 30 mmol/L (22-30); Chloride 98 mmol/L (98-107); Estimated Glomerular Filt Rate 13; Glucose 112 mg/dL (65-110); Magnesium 1.9 mg/dL (1.6-2.3); Phosphorus 3.4 mg/dL (2.5-4.5); Potassium 4.2 mmol/L (3.4-5.0); Sodium 133 mmol/L (137-145)
[2022-03-24] MEDS: ATORVASTATIN 20 MG TABLET PO (08:30)
[2022-03-24] MEDS: PANTOPRAZOLE 40 MG TABLET PO (08:30)
[2022-03-24] MEDS: ASPIRIN 81 MG ENTERIC TABLET PO (08:31)
[2022-03-24] MEDS: BUMETANIDE 1 MG TABLET 2 MG PO (08:31)
[2022-03-24] MEDS: DOXYCYCLINE HYCLATE 100 MG TABLET PO ×2 (08:31→20:13)
[2022-03-24] MEDS: DEXAMETHASONE 2 MG TABLET 6 MG PO (08:31)
--- NOTE | 2022-03-24 09:38 | PM.PNNEP ---
Progress Note: A&P Assessment and Plan (1) End stage renal disease: Code(s): N18.6 - End stage renal disease Status: Chronic Assessment and Plan: HD tomorrow and continue M/W/F dialysis schedule follow electrolytes, volume status, and clearance (2) COVID: Code(s): U07.1 - COVID-19 Status: Acute Assessment and Plan: relatively asymptomatic but was requiring supplemental oxygen presumed etiology of weakness on room air currently (3) Pneumonia: Code(s): J18.9 - Pneumonia, unspecified organism Status: Acute Assessment and Plan: suspected based on productive cough and CXR findings COVID related versus aspiration? on antibiotics continue supportive therapy (4) Paroxysmal atrial fibrillation: Code(s): I48.0 - Paroxysmal atrial fibrillation Status: Acute Assessment and Plan: rate control strategy no longer on anticoagulation due to a bleed in the past and fall risk (5) Hypertension: Code(s): I10 - Essential (primary) hypertension Status: Chronic Assessment and Plan: reasonable control follow trend of hemodynamics (6) Chronic diastolic congestive heart failure: Code(s): I50.32 - Chronic diastolic (congestive) heart failure Status: Acute Assessment and Plan: compensated makes some urine -- on bumex (7) Anemia: Code(s): D64.9 - Anemia, unspecified Status: Acute Assessment and Plan: due to ESRD Epogen with HD follow trend of H/H Will continue to follow. Subjective Date/time seen: 03/24/22 09:38 No apparent distress noted at the time of my visit; on/off confusion noted in the last 24 hours but he has recognized me since his admission and seems appropriate on my visits with him; still complains of just feeling weak with no other acute complaints. Exam Narrative: General: WD/WN male in NAD Heart: normal S1 and S2; no rub Lungs: clear anteriorly but decreased at bases Abdomen: soft, nontender, nondistended, positive bowel sounds Extremities: no cyanosis or clubbing; trace edema Skin: bilateral toes with eschar Objective Data Vital Signs Vital Signs: Vital Signs Temp Pulse Resp BP Pulse Ox O2 Del Method FiO2 03/24/22 08:21 93 Room Air 03/24/22 04:00 97.5 F L 91 18 138/44 L 96 03/24/22 03:50 78 17 03/23/22 23:59 97.6 F 54 L 18 135/54 L 100 03/23/22 21:01 74 16 03/23/22 20:00 97.3 F L 52 L 18 144/50 H 99 03/23/22 19:42 99 Room Air 28 03/23/22 16:00 97 F L 59 L 18 129/61 99 03/23/22 15:24 64 16 03/23/22 15:15 57 L 16 03/23/22 12:00 97.6 F 53 L 18 124/38 L 95 Intake/Output Intake/Output: Intake & Output 03/21/22 03/22/22 03/23/22 03/24/22 23:59 23:59 23:59 23:59 Intake Total 1530 1220 870 0 Output Total 2200 200 0 Balance 1530 -980 670 0 Meds/Results Medications: Active Medications Generic Name Dose Route Start Last Admin Trade Name Freq PRN Reason Stop Dose Admin Acetaminophen 650 mg 03/15/22 09:33 03/23/22 11:40 Acetaminophen 325 Mg Tablet PO 650 mg Q4H PRN Administration Mild Pain (1-3) or Fever Albuterol 5 mg 03/15/22 14:00 03/24/22 08:20 Albuterol Sulfate Neb 2.5 Mg/3 Ml Inh INHALATION Not Given Q6HRT NOÉ Albuterol 2 puff 03/15/22 23:01 Albuterol Sulfate (*Sp) Aerosol 1 Puff INHALATION Q6HRT PRN Shortness Of Breath Aspirin 81 mg 03/16/22 09:00 03/24/22 08:31 Aspirin 81 Mg Enteric Tablet PO 81 mg DAILY NOÉ Administration Atorvastatin Calcium 20 mg 03/24/22 09:00 03/24/22 08:30 Atorvastatin 20 Mg Tablet PO 20 mg DAILY NOÉ Administration Bumetanide 2 mg 03/16/22 09:00 03/24/22 08:31 Bumetanide 1 Mg Tablet PO 2 mg DAILY NOÉ Administration Dexamethasone 6 mg 03/24/22 08:00 03/24/22 08:31 Dexamethasone 2 Mg Tablet PO 03/28/22 08:0
--- NOTE | 2022-03-24 14:57 | PM.IMPN ---
Progress Note: A&P Assessment and Plan (1) Confusion: Code(s): R41.0 - Disorientation, unspecified Status: Acute Assessment and Plan: Patient mildly confused today. Could be chronic with mild dementia but no mention in the chart regarding confusion. B12, folate, ammonia, tsh normal levels. CT brain showing no acute findings. Related to PNA? Continue abx. Follow. (2) COVID: Code(s): U07.1 - COVID-19 Status: Acute Assessment and Plan: The patient was diagnosed with COVID on 03/12/2022.?He was started on dexamethasone and remdesivir but remdesivir stopped. CXR 03/15 showing elevated right hemidiaphragm and probably atelectasis. Repeat CXR 03/22 showing right basilar and midlung atelectasis. Speech therapy showing patient can swallow safely. Will continue Rocephin and Doxy for post-COVID PNA (Day 3). (3) Weakness: Code(s): R53.1 - Weakness Status: Acute Assessment and Plan: May need SNF when noting the PT/OT evaluation. He was started on dexamethasone and remdesivir but remdesivir stopped. Patient on and off O2 still. Continue oral Dexamethasone. Found that patient actually uses an electric WC at the [facility] and is contact guard now. Possible discharge in the morning. (4) Elevated troponin: Code(s): R79.89 - Other specified abnormal findings of blood chemistry Status: Acute Assessment and Plan: Patient presented with complaints of weakness. He denies chest pain. Troponin elevate at 0.19 and was trending down on repeat. EKG showing no change from prior. He has a hx of chronically elevated Trop. [employer] elevated Trop related to COVID and ESRD. (5) ESRD (end stage renal disease) on dialysis: Code(s): N18.6 - End stage renal disease; Z99.2 - Dependence on renal dialysis Status: Acute Assessment and Plan: Patient with ESRD. Nephrology consulted. Continue HD per their recommendations. (6) Paroxysmal atrial fibrillation: Code(s): I48.0 - Paroxysmal atrial fibrillation Status: Acute Assessment and Plan: EKG on admission showing slow AFib which is chronic. Not on rate lowering agents. Heart rate remaining well controlled. Not on anticoagulation chronically. (7) Obstructive sleep apnea on CPAP: Code(s): G47.33 - Obstructive sleep apnea (adult) (pediatric); Z99.89 - Dependence on other enabling machines and devices Status: Acute Assessment and Plan: Refusing BiPAP. Encourage compliance (8) Chronic diastolic congestive heart failure: Code(s): I50.32 - Chronic diastolic (congestive) heart failure Status: Acute Assessment and Plan: Stable. Continue to use dialysis to control fluid status. (9) Anemia: Code(s): D64.9 - Anemia, unspecified Status: Acute Assessment and Plan: Patient with chronic anemia the runs in the 8-9 range. [employer] related to his end-stage renal disease. (10) Vascular insufficiency: Code(s): I99.8 - Other disorder of circulatory system Status: Acute Assessment and Plan: Lower extremity arterial ultrasound showed decreased left TBI consistent with left-sided intercourse disease and nondiagnostic ABIs. Will defer to primary care doctor for further evaluation and treatment. Continue ASA and Lipitor. Subjective Date/time seen: 03/24/22 14:57 Interval history: 71yo male with ESRD here for weakness and found to have COVID Alert but mildly confused. No n/v. No cough. No cp or sob. Not walking much. Exam Narrative: AF 96.4 136/45 47 16 97% ra Gen - NARD Chest - right base crackles o/w clear. Nml RR. Right upper chest tunneled HD catheter in place CV - RRR S1/S2 Abd - soft. NT/ND. PD catheter in place. Ext - mild LE edema. Thrill/bruit in the LUE. Neuro - no focal weakness. alert, oriented to name, location and [place] name but not month/year. Psych - nml mood Skin - Chronic venous stasis skin lerma
[2022-03-25] VITALS (19 sets, daily range): BP systolic 112–137; BP diastolic 48–99; PULSE 42–77; RESP 16–18; TEMP 36–36.9; O2SAT 98–100; BMI 24.0
--- NOTE | 2022-03-25 03:45 | PCRCNOTE ---
Window of time for administration has passed. See next scheduled administration.
[2022-03-25] MEDS: HEPARIN SODIUM 5,000 UNITS/ML VIAL 5000 UNITS SUB-Q ×2 (06:39→13:00)
[2022-03-25 06:55] LABS: Hematocrit 26.6 % (42.0-52.0); Hemoglobin 8.3 g/dL (14.0-18.0); Mean Corpuscular HGB Conc 31.2 g/dl (32-36); Mean Corpuscular Hemoglobin 31.6 pg (26-34); Mean Corpuscular Volume 101.1 fl (80-100); Mean Platelet Volume 9.9 fl (7.4-10.4); Platelet Count Result 108 k/mm3 (150-375); Red Blood Count 2.63 M/mm3 (4.6-6.20); Red Cell Distribution Width 16.3 % (11.5-14.5); White Blood Count 6.2 K/mm3 (4.5-10.0)
[2022-03-25 07:03] LABS: Albumin Level 2.8 g/dL (3.5-5.1); Anion Gap 6 mmol/L (8-16); Blood Urea Nitrogen 35 mg/dL (9-20); Calcium 8.2 mg/dL (8.4-10.2); Carbon Dioxide 28 mmol/L (22-30); Chloride 95 mmol/L (98-107); Estimated Glomerular Filt Rate 11; Glucose 121 mg/dL (65-110); Magnesium 1.9 mg/dL (1.6-2.3); Phosphorus 4.3 mg/dL (2.5-4.5); Potassium 4.1 mmol/L (3.4-5.0); Sodium 129 mmol/L (137-145)
[2022-03-25] MEDS: DEXAMETHASONE 2 MG TABLET 6 MG PO (09:28)
[2022-03-25] MEDS: BUMETANIDE 1 MG TABLET 2 MG PO (09:28)
[2022-03-25] MEDS: ATORVASTATIN 20 MG TABLET PO (09:28)
[2022-03-25] MEDS: ASPIRIN 81 MG ENTERIC TABLET PO (09:29)
[2022-03-25] MEDS: PANTOPRAZOLE 40 MG TABLET PO (09:29)
[2022-03-25] MEDS: DOXYCYCLINE HYCLATE 100 MG TABLET PO (09:29)
[2022-03-25] MEDS: ALBUTEROL SULFATE NEB 2.5 MG/3 ML INH 5 MG INHALATION ×2 (09:30→14:20)
--- NOTE | 2022-03-25 09:53 | PCPTNOTE ---
Patient refused treatment this session. Patient states he has already transferred in and out of bed today and is not going to do that again today. Patient educated in the importance of participating in therapy to improve strength and mobility. Patient verbalizes understanding and states I know but I am not going to do it again.
--- NOTE | 2022-03-25 13:35 | PM.PNNEP ---
Progress Note: A&P Assessment and Plan (1) End stage renal disease: Code(s): N18.6 - End stage renal disease Status: Chronic Assessment and Plan: HD today and continue M/W/F dialysis schedule follow electrolytes, volume status, and clearance (2) COVID: Code(s): U07.1 - COVID-19 Status: Acute Assessment and Plan: relatively asymptomatic but was requiring supplemental oxygen presumed etiology of weakness on room air currently (3) Pneumonia: Code(s): J18.9 - Pneumonia, unspecified organism Status: Acute Assessment and Plan: suspected based on productive cough and CXR findings COVID related versus aspiration? on antibiotics continue supportive therapy (4) Paroxysmal atrial fibrillation: Code(s): I48.0 - Paroxysmal atrial fibrillation Status: Acute Assessment and Plan: rate control strategy no longer on anticoagulation due to a bleed in the past and fall risk (5) Hypertension: Code(s): I10 - Essential (primary) hypertension Status: Chronic Assessment and Plan: reasonable control follow trend of hemodynamics (6) Chronic diastolic congestive heart failure: Code(s): I50.32 - Chronic diastolic (congestive) heart failure Status: Acute Assessment and Plan: compensated makes some urine -- on bumex (7) Anemia: Code(s): D64.9 - Anemia, unspecified Status: Acute Assessment and Plan: due to ESRD Epogen with HD follow trend of H/H Will continue to follow. Subjective Date/time seen: 03/25/22 13:35 Patient tolerating hemodialysis treatment at the time of my visit (seen on HD at 1:15PM); no new issues or problems to report at this time; still with some weakness but states he does feel stronger in general. Exam Narrative: General: WD/WN male in NAD Heart: normal S1 and S2; no rub Lungs: clear anteriorly but decreased at bases Abdomen: soft, nontender, nondistended, positive bowel sounds Extremities: no cyanosis or clubbing; trace edema Skin: bilateral toes with eschar noted Objective Data Vital Signs Vital Signs: Vital Signs Temp Pulse Resp BP Pulse Ox O2 Del Method 03/25/22 13:00 98.0 F 45 L 16 137/57 L 03/25/22 13:18 42 L 131/54 L 03/25/22 08:00 98 Room Air 03/25/22 09:40 53 L 18 03/25/22 09:35 98 Room Air 03/25/22 09:31 58 L 18 03/25/22 04:00 97.9 F 77 18 137/48 L 100 03/24/22 23:59 97.3 F L 51 L 18 141/54 H 98 03/24/22 21:11 65 18 Intake/Output Intake/Output: Intake & Output 03/22/22 03/23/22 03/24/22 03/25/22 23:59 23:59 23:59 23:59 Intake Total 1220 870 600 350 Output Total 2200 200 0 2000 Balance -980 670 600 -1650 Meds/Results Radiology Results: ITS Impressions Ankle Brachial Index 03/16/22 13:45 IMPRESSION: 1. Decreased left TBI, consistent with left-sided arterial occlusive disease. 2. Nondiagnostic ABIs. Venous Doppler Study 03/20/22 22:55 IMPRESSION: 1. Patent bilateral lower extremity veins. No evidence of deep venous thrombosis. Chest X-Ray 03/22/22 06:22 Impression: Small right pleural effusion. Right basilar and midlung atelectasis/pulmonary edema versus possibly pneumonia. Correlate clinically. Elevation of right hemidiaphragm. Stable support line. Head CT 03/23/22 18:17 IMPRESSION: No acute intracranial process. Labs Labs: Laboratory Tests 03/25/22 06:27 03/25/22 06:27 Quality Patient seen/evaluated on hemodialysis treatment ([id number]).
--- NOTE | 2022-03-25 14:20 | PM.DS ---
DS: Admitting Diagnosis Discharge Date 03/25/22 Admitting Diagnosis Weakness and COVID DS: Discharge Diagnosis Discharge Diagnosis (1) Confusion: Code(s): R41.0 - Disorientation, unspecified Status: Acute (2) COVID: Code(s): U07.1 - COVID-19 Status: Acute (3) Weakness: Code(s): R53.1 - Weakness Status: Acute (4) Elevated troponin: Code(s): R79.89 - Other specified abnormal findings of blood chemistry Status: Acute (5) ESRD (end stage renal disease) on dialysis: Code(s): N18.6 - End stage renal disease; Z99.2 - Dependence on renal dialysis Status: Acute (6) Paroxysmal atrial fibrillation: Code(s): I48.0 - Paroxysmal atrial fibrillation Status: Acute (7) Obstructive sleep apnea on CPAP: Code(s): G47.33 - Obstructive sleep apnea (adult) (pediatric); Z99.89 - Dependence on other enabling machines and devices Status: Acute (8) Chronic diastolic congestive heart failure: Code(s): I50.32 - Chronic diastolic (congestive) heart failure Status: Acute (9) Anemia: Code(s): D64.9 - Anemia, unspecified Status: Acute (10) Vascular insufficiency: Code(s): I99.8 - Other disorder of circulatory system Status: Acute DS: Summary Hospital Course Reason for hospitalization: 71yo male with ESRD here for weakness and COVID. Please see H&P for details. Hospital Course: The patient was diagnosed with COVID on 03/12/2022.?He was started on dexamethasone and remdesivir due to hypoxia but remdesivir stopped. CXR 03/15 showing elevated right hemidiaphragm and probably atelectasis. Repeat CXR 03/22 showing right basilar and midlung atelectasis. Speech therapy showing patient can swallow safely. he was weaned off oxygen 3 days prior to discahrge. Rocephin and Doxy added for post-COVID PNA. Troponin elevate at 0.19 and was trending down on repeat. He denies chest pain. EKG showing no change from prior. He has a hx of chronically elevated Trop. [place] elevated Trop related to COVID and ESRD. Nephrology consulted. We continued HD per their recommendations. Lower extremity arterial ultrasound showed decreased left TBI consistent with left-sided intercourse disease and nondiagnostic ABIs.?We continued ASA and added Lipitor. Patient with chronic anemia the runs in the 8-9 range.?hgb remained stable here. [place] related to his end-stage renal disease. Patient has DIMITRIS but was refusing BiPAP. Patient was mildly confused at times. Could be chronic with mild dementia but no mention in the chart regarding confusion. B12, folate, ammonia, tsh normal levels. CT brain showing no acute findings. He worked with PT/OT. Discovered that patient actually uses an electric wheelchair. It was felt patietn could go back to assisted living. Patient overall did well and was able to be discharged on 03/25/22 Status at Discharge Cognitive/behavioral status at discharge: Stable Time Spent with Patient Time attestation: Total time spent providing and/or coordinating discharge services: 36 minutes Time spent: Greater than 30 minutes Exam Narrative: AF 98.0 115/52 45 18 98% ra Gen - NARD Chest - lungs clear anteriorly. Nml RR. Right upper chest tunneled HD catheter in place CV - RRR S1/S2 Abd - soft. NT/ND. PD catheter in place. Ext - R>L LE edema. Thrill/bruit in the LUE. Neuro - no focal weakness. alert, oriented to name, location and [place] name but not month/year. Psych - nml mood Skin - Chronic venous stasis skin changes to the LE. DS: Data Data Completed and Pending Labs on day of discharge: Labs from last 24 hours 03/25/22 03/25/22 06:27 06:27 WBC 6.2 RBC 2.63 L Hgb 8.3 L Hct 26.6 L MCV 101.1 H D MCH 31.6 MCHC 31.2 L RDW 16.3 H Plt Count 108 L MPV 9.9 Sodium 129 L Potassium 4.1 Chloride 95 L Carbon Dioxide 28 Anion Gap 6 L BUN 35 H Creatinine 5.30 H Estim Creat Clear Calc Not Rep
== END 2022-03-25 18:23 | DRG 177 ==
LOC: ANHED 09:32 → ANH3MEDSUR 11:48
PROVIDERS: Family Medicine; Internal Medicine Nephrology; Nurse Practitioner; Student in an Organized Health Care Education/Training Program; Admitting Provider Internal Medicine; Emergency Provider Family Medicine; PCP Family Medicine; Visit Provider Internal Medicine
DX: U07.1 COVID-19 (principal); J12.82 Pneumonia due to coronavirus disease 2019; N18.6 End stage renal disease; J69.0 Pneumonitis due to inhalation of food and vomit; I13.2 Hypertensive heart and chronic kidney disease with heart failure and with stage 5 chronic kidney disease, or end stage renal disease; I50.32 Chronic diastolic (congestive) heart failure; E11.22 Type 2 diabetes mellitus with diabetic chronic kidney disease; J44.9 Chronic obstructive pulmonary disease, unspecified; K75.81 Nonalcoholic steatohepatitis (NASH); K74.60 Unspecified cirrhosis of liver; I25.10 Atherosclerotic heart disease of native coronary artery without angina pectoris; D63.1 Anemia in chronic kidney disease; K21.9 Gastro-esophageal reflux disease without esophagitis; E78.5 Hyperlipidemia, unspecified; G47.33 Obstructive sleep apnea (adult) (pediatric); I44.7 Left bundle-branch block, unspecified; R41.0 Disorientation, unspecified; F03.90 Unspecified dementia, unspecified severity, without behavioral disturbance, psychotic disturbance, mood disturbance, and anxiety; I48.0 Paroxysmal atrial fibrillation; I73.9 Peripheral vascular disease, unspecified; I99.8 Other disorder of circulatory system; R79.89 Other specified abnormal findings of blood chemistry; N25.0 Renal osteodystrophy; Z99.2 Dependence on renal dialysis; Z95.1 Presence of aortocoronary bypass graft; Z98.42 Cataract extraction status, left eye; Z98.41 Cataract extraction status, right eye; Z96.1 Presence of intraocular lens; Z85.828 Personal history of other malignant neoplasm of skin; Z87.891 Personal history of nicotine dependence; Z91.199 Patient's noncompliance with other medical treatment and regimen due to unspecified reason
CPT/HCPCS: 36415; 70450; 71045; 80048; 80053; 80069; 82140; 82565; 82607; 82746; 82948; 83615; 83735; 84100; 84439; 84443; 84460; 84480; 84484; 85025; 85027; 85055; 85610; 86706; 87340; 92610; 93005; 93922; 93970; 94640; 96374; 97110; 97161; 97166; 97530; 97535; 99285; A9270; G0257; G0378; J0248; J0696; J1100; J1644; J7030; J8540; Q5105

== ENCOUNTER 2022-04-19 11:54 | Inpatient (IN) | payer MEDICARE, MEDICAID, SELFPAY ==
[2022-04-19] VITALS (37 sets, daily range): BP systolic 127–159; BP diastolic 46–66; PULSE 50–66; RESP 14–19; TEMP 36.1–36.4; O2SAT 96–100; BMI 24.3
--- NOTE | ~2022-04-19 | XR_ITS ---
Supine views of the abdomen Clinical history: Assess, weakness Findings: Bowel gas pattern is nonspecific. No evidence for obstruction or free air. Extensive vascul ar calcifications are present. Osseous structures are intact. Impression: Nonspecific bowel gas pattern. Extensive vascular calcifications. Reviewed, dictated and finalized at [facility]. SETTER Impression: Nonspecific bowel gas pattern. Extensive vascular calcifications.
--- NOTE | ~2022-04-19 | XR_ITS ---
Portable chest x-ray Comparison: 03/22/2022 Clinical History: Confusion Findings: Right-sided central venous line is unchanged. Small right pleural effusion present with mi nimal pulmonary edema. Cardiomediastinal silhouette is stable. Bones and soft tissues are unremarkab le. Impression: Small right pleural effusion with probable minimal pulmonary edema. Stable support line. Reviewed, dictated and finalized at location . SALES NETWORK ENGINEER Impression: Small right pleural effusion with probable minimal pulmonary edema. Stable support line.
--- NOTE | 2022-04-19 12:16 | ECG_ITS ---
Measurements Intervals [place] Rate: 59 P: [place]: 0 QRS: -57 QRSD: 113 T: 208 QT: 487 QTc: 484 Interpretive Statements SEVERE BASELINE MOTION ARTIFACT, POOR QUALITY ECG SUSPECT ATRIAL FIBRILLATION WITH SLOW VENTRICULAR RESPONSE NONSPECIFIC INTRAVENTRICULAR CONDUCTION ABNORMALITY ABNORMAL ECG COMPARED TO ECG 03/15/2022 06:56:56 NO OBVIOUS CHANGE ALTHOUGH CURRENT ECG IS OF VERY POOR QUALITY Electronically Signed On 04-19-2022 15:03:23 [employer]AIGHTENING [employer]ESS OPERATOR HELPER by Parth Morgan M.D.
[2022-04-19 12:46] LABS: Basophils Absolute Auto 0.1 K/mm3 (0.0-0.1); Basophils Percent Auto 0.9 % (0.2-1.2); Eosinophils Absolute Auto 0.3 K/mm3 (0-0.3); Eosinophils Percent Auto 3.9 % (0-4.4); Hematocrit 26.4 % (42.0-52.0); Hemoglobin 8.7 g/dL (14.0-18.0); Immature Granulocyte Absolute 0.04 K/mm3 (0.00-0.031); Immature Granulocyte Percent A 0.5 % (0-0.5); Immature Platelet Fraction Pct 1.8 % (0.9-11.2); Lymphocytes Absolute Auto 0.42 K/mm3 (0.9-3.2); Lymphocytes Percent Auto 5.4 % (18.3-44.2); Mean Corpuscular Hemoglobin 32.3 pg (26-34); Mean Corpuscular Volume 98.1 fl (80-100); Mean Platelet Volume 9.1 fl (7.4-10.4); Monocytes Absolute Auto 0.9 K/mm3 (0.1-0.6); Monocytes Percent Auto 11.7 % (2.6-8.5); Neutrophils Percent Auto 77.6 % (45.5-73.1); Platelet Count Result 98 k/mm3 (150-375); Red Blood Count 2.69 M/mm3 (4.6-6.20); Red Cell Distribution Width 17.9 % (11.5-14.5); White Blood Count 7.7 K/mm3 (4.5-10.0)
[2022-04-19 12:55] LABS: Alanine Aminotransferase 14 U/L (6-50); Albumin Level 3.2 g/dL (3.5-5.1); Alkaline Phosphatase 152 U/L (38-126); Anion Gap 11 mmol/L (8-16); Aspartate Amino Transferase 25 U/L (17-59); Bilirubin,Total 1.4 mg/dL (0.2-1.3); Blood Urea Nitrogen 62 mg/dL (9-20); Carbon Dioxide 23 mmol/L (22-30); Chloride 91 mmol/L (98-107); Estimated Glomerular Filt Rate 7; Glucose 65 mg/dL (65-110); Potassium 5.1 mmol/L (3.4-5.0); Sodium 125 mmol/L (137-145)
[2022-04-19 12:56] LABS: Lactic Acid Reflex 1.3 mmol/L (0.7-2.0)
[2022-04-19 13:06] LABS: Partial Thromboplastin Time 40.1 SECONDS (22.3-36.8)
[2022-04-19 13:13] LABS: NT Pro B Type Natriuretic Pept > 30000 pg/mL (19.9-100); Troponin I 0.052 ng/mL (0.000-0.034)
[2022-04-19 13:20] LABS: Ammonia 72 umol/L (9-30)
[2022-04-19 13:30] LABS: INR 1.5; Prothrombin Time 17.4 Seconds (11.1-14.7)
[2022-04-19 13:46] LABS: Anisocytosis 2+ (NORMAL); Poikilocytosis 2+ (NORMAL); Schistocytes 1+ (NORMAL)
--- NOTE | 2022-04-19 14:22 | ED.AMS ---
HPI - Altered Mental Status General Chief Complaint: Altered Mental Status Stated Complaint: ams, hypotension, gi bleed Time Seen by Provider: 04/19/22 12:13 History of Present Illness HPI narrative: Pt presents from local NH via EMS for altered mental status. Last known well 0600. Pt not following commands but responds appropriately when trying to remove clothes. Pt has not had dialysis for a week and normally goes 3 times a week. maroon stool noted here and per EMS. Related Data Home Medications Medication Instructions Recorded Confirmed bumetanide 2 mg tablet 2 mg PO DAILY 09/06/19 03/15/22 aspirin 81 mg tablet,delayed 81 mg PO DAILY 03/15/22 03/15/22 release meclizine 25 mg tablet 25 mg PO TID PRN Dizziness 03/15/22 03/15/22 sevelamer carbonate 800 mg tablet 1,600 mg PO DAILY 03/15/22 03/15/22 Allergies Allergy/AdvReac Type Severity Reaction Status Date / Time codeine Allergy Unknown RASH/BLISTE Verified 03/20/21 15:05 RS Review of Systems Review of Systems: ROS unobtainable: Yes unobtainable due to mental status [facility] Past Medical History Medical History (Updated 04/19/22 @ 16:59 by Zarina Gruber PA-C) Chronic anemia Chronic diastolic congestive heart failure Echocardiogram in September 2019 showed normal left ventricular size and function with an ejection fraction estimated at 60 to 65% with abnormal diastolic function, moderate biatrial enlargement, mild aortic valve sclerosis, moderate aortic valve regurgitation, and trace mitral and tricuspid valve regurgitation. Chronic obstructive pulmonary disease Cirrhosis of liver with ascites Attributed to BURROWS however he has never had a liver biopsy. Coronary artery disease Status post 7 vessel CABG in 2007. No definite infarct or ischemia on nuclear stress test in September 2019. Diet-controlled type 2 diabetes mellitus End-stage renal disease on hemodialysis Erythropoietin deficiency anemia Gastroesophageal reflux disease GI bleed March 2014, November 2017, and more recently suspected occult GI loss in September 2019. H/O: HTN (hypertension) Hyperlipidemia Hypertension Left bundle branch block Obstructive sleep apnea on CPAP The patient is supposed to use BiPAP but rarely uses it Paroxysmal atrial fibrillation not on long-term anticoagulation given history of GI bleed. Status post watchman left atrial appendage closure device insertion. Peripheral arterial disease Status post abdominal aortic aneurysm repair. Presence of Watchman left atrial appendage closure device Pulmonary hypertension Moderate pulmonary hypertension with an estimated pulmonary arterial systolic pressure of 50 mmHg on echocardiogram in September 2019. Renal osteodystrophy Ureterolithiasis (~09/2019) Surgical History Surgical History (Updated 04/19/22 @ 16:59 by Zarina Gruber PA-C) History of cataract extraction with lens replacement History of coronary artery bypass graft (~2007) 7 vessel bypass at [facility]. History of cystoscopy (~09/2019) With left ureteral stent and subsequent removal. History of penile implant History of squamous cell carcinoma excision (~11/2018) Excised from the left upper extremity. History of tonsillectomy History of ventral hernia repair (~09/2018) Family History Family History Mother Diabetes mellitus Father Family history of malignant neoplasm Family history of lung cancer Hypertension Sibling Diabetes mellitus Social History Social History (Updated 03/15/22 @ 22:46 by Renetta Salinas NP) Social History: the patient has 3 children. He is disabled. He stated that he is an ex-smoker. He lives in a facility. He is single. He is a former smoker Surrogate decision maker: Thuan Lowry, son. Code status: Full code. (The patient initially stated that he would not want to be put on a ventilator at all. After further discussion he has decided th
[2022-04-19] MEDS: DEXTROSE 50% 25 GM/50 ML SYRINGE IV PUSH (15:16)
[2022-04-19 16:01] LABS: Influenza A QL RT-PCR Negative (Negative); Influenza B QL RT-PCR Negative (Negative); SARS-CoV-2 RNA PCR Negative
[2022-04-19 16:08] LABS: Hematocrit 26.7 % (42.0-52.0); Hemoglobin 8.8 g/dL (14.0-18.0)
--- NOTE | 2022-04-19 16:45 | PM.IMHP ---
H&P: HPI History of Present Illness Date/Time: 04/19/22 16:45 Chief Complaint: Altered mental status. Narrative: This is a 71-year-old male with history of chronic anemia requiring multiple blood transfusions, occult GI bleeding with a history of multiple endoscopies including right-sided colonoscopy, coronary artery disease status post CABG in 2007, end-stage renal disease on hemodialysis since September 2019, paroxysmal atrial fibrillation status post left atrial appendage closure, diastolic congestive heart failure, pulmonary hypertension, COPD, obstructive sleep apnea, cirrhosis, and diet-controlled type 2 diabetes mellitus who presented to the emergency department via EMS from [facility] for evaluation of altered mental status. He is alert and oriented at the time of my evaluation and provides the following history. He does not really remember why he was sent to the hospital, however. According to the triage note he was in his usual state of health about 06:00 and he was post go to dialysis however ?he would not get up in time to go? and he missed today's treatment as well as two other treatments earlier this week. Nursing staff noted that he had some bright red blood in his undergarments as well. At the time my evaluation he has no complaints and specifically denies headache, fever, chills, sweats, cold and flu symptoms, chest pain, shortness a breath, nausea, vomiting, diarrhea, and dysuria (reports that he still urinates). Vital signs were stable on arrival. Hemoglobin and hematocrit have been stable when compared to baseline x2. The rest of his labs were significant for sodium of 125, potassium 5.4, BUN 62, creatinine 8.10, troponin 0.052, proBNP greater than 30,000, ammonia 72. Chest x-ray showed a small right pleural effusion with probable minimal pulmonary edema. He is being admitted in this setting for dialysis and trending of his hemoglobin and hematocrit. Review of Systems Review of Systems: Negative except for as per HPI. [facility] Past Medical History Medical History (Updated 04/19/22 @ 23:57 by Zarina Gruber PA-C) Chronic anemia Chronic diastolic congestive heart failure Echocardiogram in September 2019 showed normal left ventricular size and function with an ejection fraction estimated at 60 to 65% with abnormal diastolic function, moderate biatrial enlargement, mild aortic valve sclerosis, moderate aortic valve regurgitation, and trace mitral and tricuspid valve regurgitation. Chronic obstructive pulmonary disease Cirrhosis of liver with ascites Attributed to BURROWS however he has never had a liver biopsy. Coronary artery disease Status post 7 vessel CABG in 2007. No definite infarct or ischemia on nuclear stress test in September 2019. Diet-controlled type 2 diabetes mellitus End-stage renal disease on hemodialysis Erythropoietin deficiency anemia Gastroesophageal reflux disease GI bleed March 2014, November 2017, and more recently suspected occult GI loss in September 2019. Hyperlipidemia Hypertension Left bundle branch block Obstructive sleep apnea on CPAP The patient is supposed to use BiPAP but rarely uses it Paroxysmal atrial fibrillation not on long-term anticoagulation given history of GI bleed. Status post watchman left atrial appendage closure device insertion. Peripheral arterial disease Status post abdominal aortic aneurysm repair. Presence of Watchman left atrial appendage closure device Pulmonary hypertension Moderate pulmonary hypertension with an estimated pulmonary arterial systolic pressure of 50 mmHg on echocardiogram in September 2019. Renal osteodystrophy Ureterolithiasis (~09/2019) Surgical History Surgical History (Updated 04/19/22 @ 16:59 by Zarina Gruber PA-C) History of cataract extraction with lens replacement History of coronary artery bypass graft (~2007) 7 vessel bypass at [facility]. History of cystoscopy (~09/2019) With left ureteral stent and subsequent removal. Histo
--- NOTE | 2022-04-19 22:30 | PC.NURSE ---
This patient, Naldo Lowry, was admitted to IMU Room 205-02 @2004. Patient/family oriented to hospital policies and general routines including ID bracelet, bed and alarms, visiting hours, pain management, procedures, bathroom and other care routines, personal items, smoking policy, room service/diet, and visiting hours. Information on how to activate the Rapid Response Team has been discussed. Patient/Family are encouraged to report perceived risks to care and to ask questions if they do not understand what they are told or what they should do.
[2022-04-20] VITALS (29 sets, daily range): BP systolic 87–153; BP diastolic 44–90; PULSE 48–73; RESP 14–20; TEMP 35.8–36.6; O2SAT 90–100
[2022-04-20] MEDS: LACTULOSE 20 GM/30 ML UDC PO ×2 (00:58→13:11)
[2022-04-20 04:34] LABS: Hematocrit 27.1 % (42.0-52.0); Hemoglobin 8.9 g/dL (14.0-18.0); Immature Platelet Fraction Pct 1.8 % (0.9-11.2); Mean Corpuscular HGB Conc 32.8 g/dl (32-36); Mean Corpuscular Hemoglobin 32.1 pg (26-34); Mean Corpuscular Volume 97.8 fl (80-100); Mean Platelet Volume 9.4 fl (7.4-10.4); Platelet Count Result 103 k/mm3 (150-375); Red Blood Count 2.77 M/mm3 (4.6-6.20); Red Cell Distribution Width 17.6 % (11.5-14.5); White Blood Count 6.9 K/mm3 (4.5-10.0)
[2022-04-20 04:49] LABS: INR 1.5; Prothrombin Time 17.6 Seconds (11.1-14.7)
[2022-04-20 04:50] LABS: Alanine Aminotransferase 14 U/L (6-50); Albumin Level 2.9 g/dL (3.5-5.1); Alkaline Phosphatase 138 U/L (38-126); Anion Gap 13 mmol/L (8-16); Aspartate Amino Transferase 24 U/L (17-59); Bilirubin,Total 1.4 mg/dL (0.2-1.3); Blood Urea Nitrogen 67 mg/dL (9-20); Carbon Dioxide 21 mmol/L (22-30); Chloride 95 mmol/L (98-107); Estimated CRCL calculation 8 ml/min; Estimated Glomerular Filt Rate 6; Glucose 87 mg/dL (65-110); Potassium 5.5 mmol/L (3.4-5.0); Sodium 129 mmol/L (137-145)
[2022-04-20 04:51] LABS: Ammonia 135 umol/L (9-30)
[2022-04-20 05:32] LABS: Hepatitis B Surface Antigen Negative (Negative)
[2022-04-20 05:37] LABS: HAV RESULT Negative (Negative); Hepatitis B Core IgM Result Negative (Negative)
[2022-04-20 05:49] LABS: Hepatitis B Surface Anti Res Negative; Hepatitis C Virus Antibody Negative (Negative)
--- NOTE | 2022-04-20 13:27 | PC.NURSE ---
patient transported to dialysis.
[2022-04-20] MEDS: ONDANSETRON INJ 4 MG/2 ML VIAL IV PUSH (14:12)
--- NOTE | 2022-04-20 14:34 | PM.IMPN ---
Progress Note: A&P Assessment and Plan (1) Encephalopathy: Code(s): G93.40 - Encephalopathy, unspecified Status: Acute (2) Hyperammonemia: Code(s): E72.20 - Disorder of urea cycle metabolism, unspecified Status: Acute (3) Rectal bleeding: Code(s): K62.5 - Hemorrhage of anus and rectum Status: Acute (4) Electrolyte abnormality: Code(s): E87.8 - Other disorders of electrolyte and fluid balance, not elsewhere classified Status: Acute (5) Chronic anemia: Code(s): D64.9 - Anemia, unspecified Status: Acute (6) End-stage renal disease on hemodialysis: Code(s): N18.6 - End stage renal disease; Z99.2 - Dependence on renal dialysis Status: Acute (7) Cirrhosis: Code(s): K74.60 - Unspecified cirrhosis of liver Status: Acute Plan The patient was brought in via EMS from his assisted living facility for evaluation of altered mental status. He is encephalopathic and is alert and oriented x2 at the time my evaluation. He has no gross focal deficits noted on exam today though a brain CT would be prudent given his comorbidities and risk for stroke however that seems less likely. More over he is likely confused due to a combination metabolic encephalopathy from missed dialysis the last week and hyperammonemia. Nephrology has been consulted for dialysis orders. He has no acute electrolyte abnormalities (sodium 125, potassium 5.1). He has been started on lactulose and ammonia will be repeated in the morning. Once again he has blood surrounding his stools which is not necessarily unusual for him and he has had multiple upper and lower endoscopies over the years. Hemoglobin/hematocrit have been stable and it does not seem as though he is actively hemorrhaging, likely his internal hemorrhoids are bleeding. Continue to monitor closely and transfuse if indicated. Blood pressures were stable. Random glucose today is 65, he has not been on medication for diabetes for quite some time. His coags are mildly prolonged, platelets are 98,000, and albumin is a bit low all pointing to his chronic cirrhosis. Continue to monitor volume status closely. His home medications will be reviewed and resumed as appropriate. 04/20/2022: interval history: patient with end-stage renal disease on hemodialysis patient has missed last 3 dialysis also history of liver cirrhosis and noncompliance with his medication lactulose upon arrival patient was quite somnolent his ammonia level was 72 and patient refused lactulose and this morning his ammonia level is his double 135, we may have to give patient lactulose suppository, patient remains somnolent, patient will have hemodialysis today will continue to monitor. Subjective Date/time seen: 04/20/22 14:34 Altered mental status. HPI-Narrative: This is a 71-year-old male with history of chronic anemia requiring multiple blood transfusions, occult GI bleeding with a history of multiple endoscopies including right-sided colonoscopy, coronary artery disease status post CABG in 2007, end-stage renal disease on hemodialysis since September 2019, paroxysmal atrial fibrillation status post left atrial appendage closure, diastolic congestive heart failure, pulmonary hypertension, COPD, obstructive sleep apnea, cirrhosis, and diet-controlled type 2 diabetes mellitus who presented to the emergency department via EMS from [facility] for evaluation of altered mental status. He is alert and oriented at the time of my evaluation and provides the following history. He does not really remember why he was sent to the hospital, however. According to the triage note he was in his usual state of health about 06:00 and he was post go to dialysis however ?he would not get up in time to go? and he missed today's treatment as well as two other treatments earlier this week. Nursing staff noted that he had some bright red blood in his undergarments as well. At the time my evaluation he has no compla
--- NOTE | 2022-04-20 14:45 | PM.CNNEP ---
Assessment and Plan Assessment and plan (1) End stage renal disease: Code(s): N18.6 - End stage renal disease Status: Chronic Assessment and Plan: HD today and then resume M/W/F dialysis schedule next week follow electrolytes, volume status, and clearance (2) Altered mental status: Code(s): R41.82 - Altered mental status, unspecified Status: Acute Assessment and Plan: likely a combination of uremia and possibly hepatic encephalopathy lactulose for elevated amonia HD today for uremia follow mentation (3) Cirrhosis: Code(s): K74.60 - Unspecified cirrhosis of liver Status: Chronic Assessment and Plan: chronic issue now complicated by a degree of hepatic encephalopathy supportive therapy (4) Paroxysmal atrial fibrillation: Code(s): I48.0 - Paroxysmal atrial fibrillation Status: Acute Assessment and Plan: rate control strategy no longer on anticoagulation due to a bleeding in the past and fall risk (5) Hypertension: Code(s): I10 - Essential (primary) hypertension Status: Chronic Assessment and Plan: reasonable control follow trend of hemodynamics (6) Chronic diastolic congestive heart failure: Code(s): I50.32 - Chronic diastolic (congestive) heart failure Status: Acute Assessment and Plan: evidence of mild pulmonary edema by CXR makes some urine -- on bumex further fluid removal with dialysis (7) Anemia: Code(s): D64.9 - Anemia, unspecified Status: Acute Assessment and Plan: due to ESRD Epogen with HD guiac positive stools noted -- related to hemorrhoids(?) follow trend of H/H Will continue to follow. History of Present Illness Reason for Consult Consult date: 04/20/22 Reason for consult: end stage renal disease Chief Complaint Chief complaint: gi bleed, ams,renal failure History of Present Illness Narrative: The patient is a 71-year-old male from extensive past medical history as outlined below presented to [facility] Emergency room from his nursing facility for further evaluation of altered mental status. Most of the history that I have obtained is from review of the electronic medical records as well as discussion with the physician/nurses involved in his care as the patient is not clear of what led to his presentation and subsequent admission to the hospital given his current mentation. Apparently, the patient was doing reasonably well earlier in the week but then nursing staff noted to be having bright red blood per rectum based on what they saw whenever they changed his clothes/ undergarments. Furthermore, is been noted by staff that his mentation is not seem to be as optimal as it usually is and seems to have been slowly declining for the past few days as well. Given these changes, he was sent to the ER for further assessment. Workup and evaluation in the emergency room demonstrated the patient be hemodynamically stable and in no apparent distress. Routine blood test demonstrated labs consistent with his known history of end-stage renal disease although his potassium was a bit higher than normal as was his BUN and creatinine in association with a relatively low sodium level. His proBNP was greater than 30,000, his ammonia level was 72, and his chest x-ray showed a small right pleural effusion and probable minimal pulmonary edema. On further questioning, and review of his records, he apparently has not had a dialysis treatment almost a week. I am unclear if this is due to patient's refusal or a transportation issue from his nursing facility to his dialysis center or something else. Given his complex medical history as well as the fact that he is missed a number of dialysis treatments as well as the fact that perhaps his altered mental status may be partly related to his missed hemodialysis sessions, he was admitted the [facility]
[2022-04-20] MEDS: EPOETIN ALFA-EPBX 10,000 UNITS/ML VIAL 10000 UNITS IV PUSH (17:05)
[2022-04-20] MEDS: SODIUM CHLORIDE 0.9% IV 1,000 ML 999 ML IV CONT (17:06)
[2022-04-20] MEDS: LACTULOSE ENEMA 200 GM/1,000 ML ENEMA RECTAL (18:25)
[2022-04-20] MEDS: PANTOPRAZOLE SODIUM IV 40 MG VIAL IV PUSH (19:53)
[2022-04-21] VITALS (14 sets, daily range): BP systolic 104–127; BP diastolic 38–46; PULSE 48–89; RESP 16–20; TEMP 35.8–36.6; O2SAT 92–100
[2022-04-21 04:46] LABS: Hematocrit 24.8 % (42.0-52.0); Immature Platelet Fraction Pct 2.1 % (0.9-11.2); Mean Corpuscular HGB Conc 32.3 g/dl (32-36); Mean Corpuscular Hemoglobin 31.6 pg (26-34); Mean Platelet Volume 8.7 fl (7.4-10.4); Platelet Count Result 89 k/mm3 (150-375); Red Blood Count 2.53 M/mm3 (4.6-6.20); Red Cell Distribution Width 17.6 % (11.5-14.5); White Blood Count 6.4 K/mm3 (4.5-10.0)
[2022-04-21 04:55] LABS: Ammonia 13 umol/L (9-30)
[2022-04-21 04:59] LABS: Albumin Level 2.7 g/dL (3.5-5.1); Anion Gap 6 mmol/L (8-16); Blood Urea Nitrogen 25 mg/dL (9-20); Calcium 7.7 mg/dL (8.4-10.2); Carbon Dioxide 33 mmol/L (22-30); Chloride 94 mmol/L (98-107); Estimated CRCL calculation 15 ml/min; Estimated Glomerular Filt Rate 13; Glucose 48 mg/dL (65-110); Phosphorus 4.3 mg/dL (2.5-4.5); Potassium 3.7 mmol/L (3.4-5.0); Sodium 133 mmol/L (137-145)
[2022-04-21 05:04] LABS: Glucose Point of Care 43 mg/dl (65-105)
[2022-04-21] MEDS: DEXTROSE 50% 25 GM/50 ML SYRINGE (05:08)
[2022-04-21 05:33] LABS: Glucose Point of Care 138 mg/dl (65-105)
[2022-04-21 06:07] LABS: Glucose Point of Care 105 mg/dl (65-105)
[2022-04-21] MEDS: PANTOPRAZOLE SODIUM IV 40 MG VIAL IV PUSH ×2 (08:00→19:53)
--- NOTE | 2022-04-21 10:44 | PM.PNNEP ---
Progress Note: A&P Assessment and Plan (1) End stage renal disease: Code(s): N18.6 - End stage renal disease Status: Chronic Assessment and Plan: HD tomorrow to resume M/W/F dialysis schedule follow electrolytes, volume status, and clearance (2) Altered mental status: Code(s): R41.82 - Altered mental status, unspecified Status: Acute Assessment and Plan: likely a combination of uremia and possibly hepatic encephalopathy lactulose for elevated amonia HD yesterday for possible uremia follow mentation (3) Cirrhosis: Code(s): K74.60 - Unspecified cirrhosis of liver Status: Chronic Assessment and Plan: chronic issue now complicated by a degree of hepatic encephalopathy supportive therapy (4) Paroxysmal atrial fibrillation: Code(s): I48.0 - Paroxysmal atrial fibrillation Status: Acute Assessment and Plan: rate control strategy no longer on anticoagulation due to a bleeding in the past and fall risk (5) Hypertension: Code(s): I10 - Essential (primary) hypertension Status: Chronic Assessment and Plan: reasonable control follow trend of hemodynamics (6) Chronic diastolic congestive heart failure: Code(s): I50.32 - Chronic diastolic (congestive) heart failure Status: Acute Assessment and Plan: evidence of mild pulmonary edema by CXR makes some urine -- on bumex further fluid removal with dialysis (7) Anemia: Code(s): D64.9 - Anemia, unspecified Status: Acute Assessment and Plan: due to ESRD Epogen with HD guiac positive stools noted -- related to hemorrhoids(?) follow trend of H/H Will continue to follow. Subjective Date/time seen: 04/21/22 10:44 Tolerated dialysis treatment yesterday afternoon without any issues or problems; mentation seems to be doing a bit better today in comparison to yesterday; no other acute complaints voiced; no events/issues overnight or earlier this morning. Exam Narrative: General: WD/WN male in NAD Heart: normal S1 and S2; no rub Lungs: clear anteriorly but decreased at bases Abdomen: soft, nontender, nondistended, positive bowel sounds Extremities: no cyanosis or clubbing; 2+ edema Skin: warm and intact Objective Data Vital Signs Vital Signs: Vital Signs Temp Pulse Resp BP Pulse Ox O2 Del Method O2 Flow Rate 04/21/22 09:52 51 L 04/21/22 09:11 94 Nasal Cannula 1 04/21/22 08:00 98 Nasal Cannula 1 04/21/22 08:00 48 L 04/21/22 08:00 96.9 F L 55 L 16 111/44 L 100 04/21/22 06:00 54 L 04/21/22 04:00 49 L 04/21/22 04:00 100 Nasal Cannula 1 04/21/22 04:00 96.9 F L 59 L 16 127/46 L 100 04/21/22 02:00 55 L 04/21/22 00:00 62 04/20/22 23:58 90 Nasal Cannula 1 04/20/22 23:54 97.3 F L 73 16 130/44 L 90 04/20/22 22:00 50 L 04/20/22 20:00 54 L 04/20/22 20:00 Room Air 04/20/22 20:00 96.7 F L 60 16 141/50 H 95 04/20/22 18:10 97.8 F 60 14 126/57 L 04/20/22 18:00 56 L 120/51 L 04/20/22 17:56 61 04/20/22 16:00 56 L 04/20/22 14:00 59 L 04/20/22 17:40 53 L 121/51 L 04/20/22 17:20 57 L 102/46 L 04/20/22 17:00 56 L 128/59 L 04/20/22 16:40 54 L 122/55 L 04/20/22 16:20 57 L 129/53 L 04/20/22 16:00 52 L 125/51 L 04/20/22 15:40 57 L 125/53 L 04/20/22 15:20 51 L 100/44 L 04/20/22 15:00 51 L 87/47 L 04/20/22 14:40 52 L 89/58 L 04/20/22 14:17 65 120/58 L 04/20/22 14:00 52 L 115/55 L 04/20/22 13:43 60 144/90 H 04/20/22 12:00 Room Air 04/20/22 12:00 60 04/20/22 12:00 97.1 F L 61 20 129/57 L 93 Intake/Output Intake/Output: Intake & Output 02/05/0904/19/22 04/20/22 04/21/22 23:59 23:59 23:59 23:59 Intake Total
--- NOTE | 2022-04-21 10:44 | P.PNNP_ITS ---
Progress Note: A&P Assessment and Plan (1) End stage renal disease: Code(s): N18.6 - End stage renal disease Status: Chronic Assessment and Plan: * HD tomorrow to resume M/W/ dialysis schedule * follow electrolytes, volume status, and clearance (2) Altered mental status: Code(s): R41.82 - Altered mental status, unspecified Status: Acute Assessment and Plan: * likely a combination of uremia and possibly hepatic encephalopathy * lactulose for elevated amonia * HD yesterday for possible uremia * follow mentation (3) Cirrhosis: Code(s): K74.60 - Unspecified cirrhosis of liver Status: Chronic Assessment and Plan: * chronic issue * now complicated by a degree of hepatic encephalopathy * supportive therapy (4) Paroxysmal atrial fibrillation: Code(s): I48.0 - Paroxysmal atrial fibrillation Status: Acute Assessment and Plan: * rate control strategy * no longer on anticoagulation due to a bleeding in the past and fall risk (5) Hypertension: Code(s): I10 - Essential (primary) hypertension Status: Chronic Assessment and Plan: * reasonable control * follow trend of hemodynamics (6) Chronic diastolic congestive heart failure: Code(s): I50.32 - Chronic diastolic (congestive) heart failure Status: Acute Assessment and Plan: * evidence of mild pulmonary edema by CXR * makes some urine -- on bumex * further fluid removal with dialysis (7) Anemia: Code(s): D64.9 - Anemia, unspecified Status: Acute Assessment and Plan: * due to ESRD * Epogen with HD * guiac positive stools noted -- related to hemorrhoids(?) * follow trend of H/H Will continue to follow. Subjective Date/time seen: 04/21/22 10:44 Tolerated dialysis treatment yesterday afternoon without any issues or problems; mentation seems to be doing a bit better today in comparison to yesterday; no other acute complaints voiced; no events/issues overnight or earlier this morning. Exam Narrative: General: WD/WN male in NAD Heart: normal S1 and S2; no rub Lungs: clear anteriorly but decreased at bases Abdomen: soft, nontender, nondistended, positive bowel sounds Extremities: no cyanosis or clubbing; 2+ edema Skin: warm and intact Objective Data Vital Signs Vital Signs: Vital Signs Temp Pulse Resp BP Pulse Ox O2 Del Method O2 Flow Rate 02/05/23 09:52 51 L 04/21/22 09:11 94 Nasal Cannula 1 04/21/22 08:00 98 Nasal Cannula 1 04/21/22 08:00 48 L 04/21/22 08:00 96.9 F L 55 L 16 111/44 L 100 04/21/22 06:00 54 L 04/21/22 04:00 49 L 04/21/22 04:00 100 Nasal Cannula 1 04/21/22 04:00 96.9 F L 59 L 16 127/46 L 100 04/21/22 02:00 55 L 04/21/22 00:00 62 04/20/22 23:58 90 Nasal Cannula 1 04/20/22 23:54 97.3 F L 73 16 130/44 L 90 04/20/22 22:00 50 L 04/20/22 20:00 54 L 04/20/22 20:00 Room Air 04/20/22 20:00 96.7 F L 60 16 141/50 H 95 04/20/22 18:10 97.8 F 60 14 126/57 L 04/20/22 18:00 56 L 120/51 L 04/20/22 17:56 61 04/20/22 16:00 56 L 04/20/22 14:00 59 L
[2022-04-21 11:36] LABS: Glucose Point of Care 116 mg/dl (65-105)
--- NOTE | 2022-04-21 13:22 | PM.IMPN ---
Progress Note: A&P Assessment and Plan (1) Encephalopathy: Code(s): G93.40 - Encephalopathy, unspecified Status: Acute (2) Hyperammonemia: Code(s): E72.20 - Disorder of urea cycle metabolism, unspecified Status: Acute (3) Rectal bleeding: Code(s): K62.5 - Hemorrhage of anus and rectum Status: Acute (4) Electrolyte abnormality: Code(s): E87.8 - Other disorders of electrolyte and fluid balance, not elsewhere classified Status: Acute (5) Chronic anemia: Code(s): D64.9 - Anemia, unspecified Status: Acute (6) End-stage renal disease on hemodialysis: Code(s): N18.6 - End stage renal disease; Z99.2 - Dependence on renal dialysis Status: Acute (7) Cirrhosis: Code(s): K74.60 - Unspecified cirrhosis of liver Status: Chronic Plan The patient was brought in via EMS from his assisted living facility for evaluation of altered mental status. He is encephalopathic and is alert and oriented x2 at the time my evaluation. He has no gross focal deficits noted on exam today though a brain CT would be prudent given his comorbidities and risk for stroke however that seems less likely. More over he is likely confused due to a combination metabolic encephalopathy from missed dialysis the last week and hyperammonemia. Nephrology has been consulted for dialysis orders. He has no acute electrolyte abnormalities (sodium 125, potassium 5.1). He has been started on lactulose and ammonia will be repeated in the morning. Once again he has blood surrounding his stools which is not necessarily unusual for him and he has had multiple upper and lower endoscopies over the years. Hemoglobin/hematocrit have been stable and it does not seem as though he is actively hemorrhaging, likely his internal hemorrhoids are bleeding. Continue to monitor closely and transfuse if indicated. Blood pressures were stable. Random glucose today is 65, he has not been on medication for diabetes for quite some time. His coags are mildly prolonged, platelets are 98,000, and albumin is a bit low all pointing to his chronic cirrhosis. Continue to monitor volume status closely. His home medications will be reviewed and resumed as appropriate. 04/21/2022: interval history: patient with end-stage renal disease on hemodialysis patient had missed last 3 dialysis also history of liver cirrhosis and noncompliance with his medication lactulose upon arrival patient was quite somnolent his ammonia level was 72 and patient refused lactulose and on 04/20 morning his ammonia level is his double 135, give patient lactulose edema and this morning his ammonia level is down 13, patient is more awake states feeling much better denies any abdominal pain nausea or, patient had a hemodialysis on 04/20, his kidney function is improving, patient will have hemodialysis tomorrow, will continue to monitor. if remains clinically stable discharge patient. Subjective Date/time seen: 04/21/22 13:22 The patient was brought in via EMS from his assisted living facility for evaluation of altered mental status. He is encephalopathic and is alert and oriented x2 at the time my evaluation. He has no gross focal deficits noted on exam today though a brain CT would be prudent given his comorbidities and risk for stroke however that seems less likely. More over he is likely confused due to a combination metabolic encephalopathy from missed dialysis the last week and hyperammonemia. Nephrology has been consulted for dialysis orders. He has no acute electrolyte abnormalities (sodium 125, potassium 5.1). He has been started on lactulose and ammonia will be repeated in the morning. Once again he has blood surrounding his stools which is not necessarily unusual for him and he has had multiple upper and lower endoscopies over the years. Hemoglobin/hematocrit have been stable and it does not seem as though he is actively hemorrhaging, likely his internal hemorrhoids are ble
[2022-04-21 15:44] LABS: IFOB Positive Control Positive; Immunochemical Fecal Occult Bl Positive (N)
[2022-04-21 16:46] LABS: Hematocrit 24.2 % (42.0-52.0); Hemoglobin 7.6 g/dL (14.0-18.0)
[2022-04-21] MEDS: SODIUM CHLORIDE 0.9% IV 250 ML 999 ML IV CONT (16:50)
--- NOTE | 2022-04-21 17:18 | ECG_ITS ---
Measurements Intervals [place] Rate: 35 P: NC: 0 QRS: -73 QRSD: 133 T: 176 QT: 567 QTc: 433 Interpretive Statements ATRIAL FIBRILLATION WITH SLOW JUNCTIONAL ESCAPE RHYTHM INTRAVENTRICULAR CONDUCTION DELAY [130+ ms QRS DURATION] WARNING: DATA QUALITY MAY AFFECT INTERPRETATION INTERPRETATION BASED ON A DEFAULT AGE OF 40 YEARS COMPARED TO ECG 04/19/2022 13:14:29 PATIENT IS MORE BRADYCARDIC WITH A SLOW JUNCTIONAL ESCAPE RHYTHM Electronically Signed On 04-22-2022 11:57:48 PSYCHIATRIC NURSE by Parth Morgan M.D.
[2022-04-21 18:46] LABS: Glucose Point of Care 90 mg/dl (65-105)
[2022-04-21] MEDS: ATROPINE SULFATE 1 MG/10 ML SYRINGE 0.5 MG IV PUSH (19:31)
[2022-04-21 23:22] LABS: Glucose Point of Care 128 mg/dl (65-105)
[2022-04-22] VITALS (28 sets, daily range): BP systolic 94–180; BP diastolic 40–68; PULSE 47–92; RESP 16–24; TEMP 36–36.8; O2SAT 90–98
[2022-04-22 04:59] LABS: Hematocrit 26.2 % (42.0-52.0); Hemoglobin 8.1 g/dL (14.0-18.0); Immature Platelet Fraction Pct 2.8 % (0.9-11.2); Mean Corpuscular HGB Conc 30.9 g/dl (32-36); Mean Corpuscular Hemoglobin 31.9 pg (26-34); Mean Corpuscular Volume 103.1 fl (80-100); Mean Platelet Volume 9.7 fl (7.4-10.4); Platelet Count Result 107 k/mm3 (150-375); Red Blood Count 2.54 M/mm3 (4.6-6.20); Red Cell Distribution Width 17.6 % (11.5-14.5); White Blood Count 6.4 K/mm3 (4.5-10.0)
[2022-04-22 05:00] LABS: Ammonia 41 umol/L (9-30)
[2022-04-22 05:09] LABS: Albumin Level 2.7 g/dL (3.5-5.1); Anion Gap 6 mmol/L (8-16); Blood Urea Nitrogen 26 mg/dL (9-20); Calcium 7.7 mg/dL (8.4-10.2); Carbon Dioxide 31 mmol/L (22-30); Chloride 91 mmol/L (98-107); Estimated CRCL calculation 13 ml/min; Estimated Glomerular Filt Rate 11; Glucose 123 mg/dL (65-110); Magnesium 1.9 mg/dL (1.6-2.3); Potassium 3.5 mmol/L (3.4-5.0); Sodium 128 mmol/L (137-145)
[2022-04-22] MEDS: PANTOPRAZOLE SODIUM IV 40 MG VIAL IV PUSH ×2 (08:28→21:57)
--- NOTE | 2022-04-22 11:37 | PM.PNNEP ---
Progress Note: A&P Assessment and Plan (1) End stage renal disease: Code(s): N18.6 - End stage renal disease Status: Chronic Assessment and Plan: HD today to resume M/W/F dialysis schedule follow electrolytes, volume status, and clearance (2) Altered mental status: Code(s): R41.82 - Altered mental status, unspecified Status: Acute Assessment and Plan: improving likely a combination of uremia and possibly hepatic encephalopathy lactulose for elevated amonia HD for possible uremia follow mentation (3) Cirrhosis: Code(s): K74.60 - Unspecified cirrhosis of liver Status: Chronic Assessment and Plan: chronic issue now complicated by a degree of hepatic encephalopathy on lactulose supportive therapy (4) Paroxysmal atrial fibrillation: Code(s): I48.0 - Paroxysmal atrial fibrillation Status: Acute Assessment and Plan: rate control strategy no longer on anticoagulation due to a bleeding in the past and fall risk (5) Hypertension: Code(s): I10 - Essential (primary) hypertension Status: Chronic Assessment and Plan: reasonable control follow trend of hemodynamics (6) Chronic diastolic congestive heart failure: Code(s): I50.32 - Chronic diastolic (congestive) heart failure Status: Acute Assessment and Plan: evidence of mild pulmonary edema by CXR makes some urine -- on bumex further fluid removal with dialysis (7) Anemia: Code(s): D64.9 - Anemia, unspecified Status: Acute Assessment and Plan: due to ESRD Epogen with HD guiac positive stools noted -- related to hemorrhoids(?) follow trend of H/H Will continue to follow. Subjective Date/time seen: 04/22/22 11:37 Tolerating dialysis treatment at the time of my visit (seen on HD at 11:20AM); more awake and alert than on admission; no apparent distress voiced; no issues overnight; states that he wants to go home when talking with him during dialysis. Exam Narrative: General: WD/WN male in NAD Heart: normal S1 and S2; no rub Lungs: clear anteriorly but decreased at bases Abdomen: soft, nontender, nondistended, positive bowel sounds Extremities: no cyanosis or clubbing; 1 - 2+ edema Skin: no rash Objective Data Vital Signs Vital Signs: Vital Signs Temp Pulse Resp BP Pulse Ox O2 Del Method O2 Flow Rate 04/22/22 10:23 Room Air 04/22/22 09:15 47 L 04/22/22 08:00 Room Air 04/22/22 08:00 57 L 04/22/22 08:00 61 24 H 121/44 L 90 04/22/22 05:54 53 L 04/22/22 04:00 53 L 04/22/22 04:00 97.7 F 92 18 137/51 L 94 04/22/22 02:00 47 L 04/21/22 22:00 48 L 04/22/22 00:10 49 L 04/21/22 23:39 97.4 F L 89 20 110/45 L 92 04/21/22 21:33 97.8 F 48 L 20 108/42 L 98 04/21/22 20:00 49 L 04/21/22 20:00 Room Air 04/21/22 18:26 104/45 L 04/21/22 16:30 105/38 L 04/21/22 12:10 96.5 F L 50 L 16 117/40 L 99 04/21/22 11:25 Nasal Cannula 1 Intake/Output Intake/Output: Intake & Output 04/19/22 04/20/22 04/21/22 04/22/22 23:59 23:59 23:59 23:59 Intake Total 570 1174 Output Total 2663 Balance -2663 570 1174 Meds/Results Medications: Active Medications Generic Name Dose Route Start Last Admin Trade Name Freq PRN Reason Stop Dose Admin Atropine Sulfate 0.5 mg 04/21/22 18:20 Atropine Sulfate 1 Mg/10 Ml Syringe IV PUSH ONCE PRN HR <40 Dextrose 12.5 gm 04/21/22 05:34 Dextrose 50% 25 Gm/50 Ml Syringe IV PUSH PRN PRN Hypoglycemia Protocol Epoetin Wily-epbx 20,000 units 04/22/22 21:11 Epoetin Wily-Epbx 20,000 Units/Ml Vial IV PUSH 04/22/22 21:12 ONCE ONE Glucagon 1 mg 04/21/22 05:34 Glucagon For Inj 1 Mg Vial IM PRN PRN Hypoglycemia Protocol Glucose 15 gm 04/21/22 0
--- NOTE | 2022-04-22 11:37 | P.PNNP_ITS ---
Progress Note: A&P Assessment and Plan (1) End stage renal disease: Code(s): N18.6 - End stage renal disease Status: Chronic Assessment and Plan: * HD today to resume M/W/F dialysis schedule * follow electrolytes, volume status, and clearance (2) Altered mental status: Code(s): R41.82 - Altered mental status, unspecified Status: Acute Assessment and Plan: * improving * likely a combination of uremia and possibly hepatic encephalopathy * lactulose for elevated amonia * HD for possible uremia * follow mentation (3) Cirrhosis: Code(s): K74.60 - Unspecified cirrhosis of liver Status: Chronic Assessment and Plan: * chronic issue * now complicated by a degree of hepatic encephalopathy * on lactulose * supportive therapy (4) Paroxysmal atrial fibrillation: Code(s): I48.0 - Paroxysmal atrial fibrillation Status: Acute Assessment and Plan: * rate control strategy * no longer on anticoagulation due to a bleeding in the past and fall risk (5) Hypertension: Code(s): I10 - Essential (primary) hypertension Status: Chronic Assessment and Plan: * reasonable control * follow trend of hemodynamics (6) Chronic diastolic congestive heart failure: Code(s): I50.32 - Chronic diastolic (congestive) heart failure Status: Acute Assessment and Plan: * evidence of mild pulmonary edema by CXR * makes some urine -- on bumex * further fluid removal with dialysis (7) Anemia: Code(s): D64.9 - Anemia, unspecified Status: Acute Assessment and Plan: * due to ESRD * Epogen with HD * guiac positive stools noted -- related to hemorrhoids(?) * follow trend of H/H Will continue to follow. Subjective Date/time seen: 04/22/22 11:37 Tolerating dialysis treatment at the time of my visit (seen on HD at 11:20AM); more awake and alert than on admission; no apparent distress voiced; no issues overnight; states that he wants to go home when talking with him during dialysis. Exam Narrative: General: WD/WN male in NAD Heart: normal S1 and S2; no rub Lungs: clear anteriorly but decreased at bases Abdomen: soft, nontender, nondistended, positive bowel sounds Extremities: no cyanosis or clubbing; 1 - 2+ edema Skin: no rash Objective Data Vital Signs Vital Signs: Vital Signs Temp Pulse Resp BP Pulse Ox O2 Del Method O2 Flow Rate 04/22/22 10:23 Room Air 04/22/22 09:15 47 L 04/22/22 08:00 Room Air 04/22/22 08:00 57 L 04/22/22 08:00 61 24 H 121/44 L 90 04/22/22 05:54 53 L 04/22/22 04:00 53 L 04/22/22 04:00 97.7 F 92 18 137/51 L 94 04/22/22 02:00 47 L 04/21/22 22:00 48 L 04/22/22 00:10 49 L 04/21/22 23:39 97.4 F L 89 20 110/45 L 92 04/21/22 21:33 97.8 F 48 L 20 108/42 L 98 04/21/22 20:00 49 L 04/21/22 20:00 Room Air 04/21/22 18:26 104/45 L 04/21/22 16:30 105/38 L 04/21/22 12:10 96.5 F L 50 L 16 117/40 L 99 04/21/22 11:25 Nasal Cannula 1 Intake/Output Intake/Output: Intake & Output
--- NOTE | 2022-04-22 13:14 | PCPTNOTE ---
Hospitalist contact regarded bedrest orders - per hospitalist, pt is no longer on bed rest.
[2022-04-22] MEDS: EPOETIN ALFA-EPBX 20,000 UNITS/ML VIAL 20000 UNITS IV PUSH (14:35)
--- NOTE | 2022-04-22 14:46 | PM.IMPN ---
Progress Note: A&P Assessment and Plan (1) Encephalopathy: Code(s): G93.40 - Encephalopathy, unspecified Status: Acute (2) Hyperammonemia: Code(s): E72.20 - Disorder of urea cycle metabolism, unspecified Status: Acute (3) Rectal bleeding: Code(s): K62.5 - Hemorrhage of anus and rectum Status: Acute (4) Electrolyte abnormality: Code(s): E87.8 - Other disorders of electrolyte and fluid balance, not elsewhere classified Status: Acute (5) Chronic anemia: Code(s): D64.9 - Anemia, unspecified Status: Acute (6) End-stage renal disease on hemodialysis: Code(s): N18.6 - End stage renal disease; Z99.2 - Dependence on renal dialysis Status: Acute (7) Cirrhosis: Code(s): K74.60 - Unspecified cirrhosis of liver Status: Chronic Plan The patient was brought in via EMS from his assisted living facility for evaluation of altered mental status. He is encephalopathic and is alert and oriented x2 at the time my evaluation. He has no gross focal deficits noted on exam today though a brain CT would be prudent given his comorbidities and risk for stroke however that seems less likely. More over he is likely confused due to a combination metabolic encephalopathy from missed dialysis the last week and hyperammonemia. Nephrology has been consulted for dialysis orders. He has no acute electrolyte abnormalities (sodium 125, potassium 5.1). He has been started on lactulose and ammonia will be repeated in the morning. Once again he has blood surrounding his stools which is not necessarily unusual for him and he has had multiple upper and lower endoscopies over the years. Hemoglobin/hematocrit have been stable and it does not seem as though he is actively hemorrhaging, likely his internal hemorrhoids are bleeding. Continue to monitor closely and transfuse if indicated. Blood pressures were stable. Random glucose today is 65, he has not been on medication for diabetes for quite some time. His coags are mildly prolonged, platelets are 98,000, and albumin is a bit low all pointing to his chronic cirrhosis. Continue to monitor volume status closely. His home medications will be reviewed and resumed as appropriate. 04/22/2022: interval history: patient with end-stage renal disease on hemodialysis patient had missed last 3 dialysis also history of liver cirrhosis and noncompliance with his medication lactulose upon arrival patient was quite somnolent his ammonia level was 72 and patient refused lactulose and on 04/20 morning his ammonia level was doubled to 135, gave patient lactulose eenema and on 04/21 morning his ammonia level was down to 13, patient was more awake stated feeling much better denies any abdominal pain nausea or, vomiting, apparently patient is not able to tolerate p.o. lactulose we may have to continue lactulose enema, patient had a hemodialysis on 04/20, his kidney function is improving, patient will have hemodialysis today , will continue to monitor. if remains clinically stable discharge patient tomorrow. Subjective Date/time seen: 04/22/22 14:46 The patient was brought in via EMS from his assisted living facility for evaluation of altered mental status. He is encephalopathic and is alert and oriented x2 at the time my evaluation. He has no gross focal deficits noted on exam today though a brain CT would be prudent given his comorbidities and risk for stroke however that seems less likely. More over he is likely confused due to a combination metabolic encephalopathy from missed dialysis the last week and hyperammonemia. Nephrology has been consulted for dialysis orders. He has no acute electrolyte abnormalities (sodium 125, potassium 5.1). He has been started on lactulose and ammonia will be repeated in the morning. Once again he has blood surrounding his stools which is not necessarily unusual for him and he has had multiple upper and lower endoscopies over the years. Hemogl
[2022-04-22 15:21] LABS: Glucose Point of Care 99 mg/dl (65-105)
[2022-04-22] MEDS: SODIUM CHLORIDE 0.9% IV 1,000 ML 999 ML IV CONT (15:50)
--- NOTE | 2022-04-22 16:25 | WPDGICN ---
Assessment and Plan Assessment and plan (1) Encephalopathy: Code(s): G93.40 - Encephalopathy, unspecified Status: Acute Assessment and Plan: probably related to liver encephalopathy now he is fully awake, on lactulose (2) Cirrhosis: Code(s): K74.60 - Unspecified cirrhosis of liver Status: Chronic Assessment and Plan: based on medical records ferrer cirrhosis will need liver imaging every 6 months and follow-up in office had egd in 2019 (3) End-stage renal disease on hemodialysis: Code(s): N18.6 - End stage renal disease; Z99.2 - Dependence on renal dialysis Status: Acute Assessment and Plan: on dialysis (4) Hyperammonemia: Code(s): E72.20 - Disorder of urea cycle metabolism, unspecified Status: Acute (5) Chronic anemia: Code(s): D64.9 - Anemia, unspecified Status: Acute Assessment and Plan: h/h stable had colonoscopy 2019 (6) Rectal bleeding: Code(s): K62.5 - Hemorrhage of anus and rectum Status: Acute Assessment and Plan: had hemorrhoids during last colonoscopy monitor GI Consult Note Consult date/time: 04/22/22 16:25 Reason for consult: hepatic encephalopathy, ferrer cirrhosis HPI: Naldo Lowry is a 71 year old male with history of hypertension, type 2 diabetes, coronary artery disease status post coronary artery bypass grafting was diagnosed to have end-stage renal disease and started on hemodialysis on September of 2019.? Patient also has a history of liver cirrhosis secondary to FERRER, chronic anemia seeing by hematology in 2019, also had rectal bleeding then underwent colonoscopy and egd by Dr Hull no varices, had hemorrhoids. He was admitted 2 days ago with more confusion than usual and slow to respond. Blood work showed sodium of 125, potassium 5.4, BUN 62, creatinine 8.10, troponin 0.052, proBNP greater than 30,000, ammonia 72, hb 8 range (close to baseline). Chest x-ray showed a small right pleural effusion with probable minimal pulmonary edema. Today he is on dialysis and he is fully awake and talking, on lactulose. Review of Systems Constitutional: Constitutional: Reports fatigue Eyes: Eyes: Denies blurry vision ENT: Reports Normal hearing present Cardiovascular: Cardiovascular: Denies chest pain Respiratory: Respiratory: Denies cough Gastrointestinal: Gastrointestinal: Denies nausea Genitourinary: Comments: on dialysis Musculoskeletal: Musculoskeletal: Denies myalgias Neurologic: Reports confusion (resolved) Psychiatric: Psychiatric: Reports confusion PMFSH Past Medical History Medical History (Updated 04/20/22 @ 18:03 by Vitaliy Piper MD) Chronic anemia Chronic diastolic congestive heart failure Echocardiogram in September 2019 showed normal left ventricular size and function with an ejection fraction estimated at 60 to 65% with abnormal diastolic function, moderate biatrial enlargement, mild aortic valve sclerosis, moderate aortic valve regurgitation, and trace mitral and tricuspid valve regurgitation. Chronic obstructive pulmonary disease Cirrhosis of liver with ascites Attributed to FERRER however he has never had a liver biopsy. Coronary artery disease Status post 7 vessel CABG in 2007. No definite infarct or ischemia on nuclear stress test in September 2019. Diet-controlled type 2 diabetes mellitus End-stage renal disease on hemodialysis Erythropoietin deficiency anemia Gastroesophageal reflux disease GI bleed March 2014, November 2017, and more recently suspected occult GI loss in September 2019. Hyperlipidemia Hypertension Left bundle branch block Obstructive sleep apnea on CPAP The patient is supposed to use BiPAP but rarely uses it Paroxysmal atrial fibrillation not on long-term anticoagulation given history of GI bleed. Status post watchman left atrial appendage closure device insertion. Peripheral arterial disease Status post abdominal aortic aneurysm repair. Presence
--- NOTE | 2022-04-22 16:41 | PM.CNCAR ---
Assessment and Plan Assessment and plan (1) Dizziness: Code(s): R42 - Dizziness and giddiness Status: Acute Assessment and Plan: Could be due to bradycardia, volume depletion, hepatic encephalopathy. (2) Atrial fibrillation: Code(s): I48.91 - Unspecified atrial fibrillation Status: Acute Assessment and Plan: Heart rate is OK in 50's predominantly. Obtain 30 day event monitor and f/u with me in 1 month. (3) Chronic diastolic congestive heart failure: Code(s): I50.32 - Chronic diastolic (congestive) heart failure Status: Acute Assessment and Plan: Stable. He gets hemodialysis. History of Present Illness History of Present Illness Consult date/time: 04/22/22 16:41 Reason For Visit: gi bleed, ams,renal failure Narrative: 71 yr old man who is my regular cardiology patient presents to hospital for dizziness. He has a history of chronic diastolic heart failure, persistnet AF s/p Watchman device, CKD, COPD, DIMITRIS, Anemia, CAD/CABG, ESRD on hemodialysis. He reports he was feeling dizzy yesterday while seated and that is reason he was brought to ER. He did not pass out. No longer dizzy. He is limited at walking 1/4 block with a cane from NEFF and COPD, but with his walker he can walk 1/2 mile. Denies chest pain, sob, orthopnea, PND, dizziness, palpitations. Cardiovascular Procedures Brand Lead:: CV Surgery ([facility]: 7 vessel CABG and ascending aortic aneurysm repair.) - 200705/15/21 Echo: EF 60-65%, mild LVH, diastolic dysfunction (E/e' 26), mod RV dysfunction with TAPSE 1.0 cm, mild RVE, mod biatrial enlargement, mild AI, trace TR, RVSP 75 mmHg, aortic root 4.3 cm. Echo/MUGA:: Echo (EF 60%, diastolic dysfunction (E/E' 19), atrial fib, mild biatrial enlargement, trace MR/PI, mild-mod AI, mild TR, Aortic root 4.1 cm.) - 10/22/2017 Echo (EF 65%, mild LVH, diastolic dysfunction (E/E' 18), atrial fib, mod LAE, mild MADAN, small left to right shunt by color doppler s/o ASD/PFO, severe pulm hypertension, RVSP 72 mmHg, mild TR/PI, Ao root 4.5 cm.) - 12/10/2016 Echo (EF 67%, mild LVH, grade 2 diastolic dysfunction, mild biatrial enlargement, mild MR/AI/TR, severe pulm hypertension with RVSP 72 mmHg, Ascending aorta graft is normal, sinus of valsalva is dilated at 4.6 cm.) - 04/15/2016 Electrophysiology:: 10/04/20 EKG: Atrial fibrillation at 78 bpm, PRWP, inferior infarct, age indeterminate, borderline ST-T wave abnormality in anterolat/high lat leads. Devices (Dr. Morris at [facility]: Implanted 30 mm Watchman device.) - 06/02/2018 EKG (Atrial fibrillation, low voltage, LAFB, borderline ST-T in lateral leads.) - 07/22/2016 Stress Tests:: Venous Duplex (No DVT of lower extremities bilaterally.) - 07/23/2016 Other (Had paracentesis with 5 liters dark reddish fluid removed.) - 05/18/2018 Other (Paracentesis: Removal of 5 liters of fluid.) - 12/09/2016 Abd/Pelvis CT (Anasarca, pleural effusions.) - 07/28/2016 Other (Paracentesis: Removal of 5 liters of fluid.) - 07/27/2016 Review of Systems Constitutional: Constitutional: Reports as per HPI, Denies chills and Denies fever(s) Cardiovascular: Cardiovascular: Reports as per HPI, Denies chest pain and Reports lightheadedness Respiratory: Respiratory: Reports as per HPI and Reports dyspnea on exertion Gastrointestinal: Gastrointestinal: Reports as per HPI and Denies abdominal pain Genitourinary: Genitourinary: Reports as per HPI and Denies dysuria Musculoskeletal: Musculoskeletal: Reports as per HPI Neurologic: Reports as per HPI, Reports dizziness and Denies syncope [facility] Past Medical History Medical History (Updated 04/22/22 @ 16:48 by Peter Pollack DO) Chronic anemia Chronic diastolic congestive heart failure Echocardiogram in September 2019 showed normal left ventricular size and function with an ejection fraction estimated at 60 to 65% with abnormal diastolic function, moderate biatrial enlargement, mild aortic valve sclerosis, moderate aortic valve
[2022-04-22 18:47] LABS: Glucose Point of Care 132 mg/dl (65-105)
[2022-04-22] MEDS: rifAXIMin 550 MG TABLET PO (21:57)
[2022-04-22 23:14] LABS: Glucose Point of Care 130 mg/dl (65-105)
[2022-04-23] VITALS (13 sets, daily range): BP systolic 92–139; BP diastolic 32–65; PULSE 42–61; RESP 16–20; TEMP 36.1–36.7; O2SAT 90–96
[2022-04-23 05:00] LABS: Ammonia 35 umol/L (9-30)
[2022-04-23 05:17] LABS: Hematocrit 26.6 % (42.0-52.0); Hemoglobin 8.2 g/dL (14.0-18.0); Immature Platelet Fraction Pct 2.3 % (0.9-11.2); Mean Corpuscular HGB Conc 30.8 g/dl (32-36); Mean Corpuscular Volume 103.9 fl (80-100); Mean Platelet Volume 9.2 fl (7.4-10.4); Platelet Count Result 117 k/mm3 (150-375); Red Blood Count 2.56 M/mm3 (4.6-6.20); Red Cell Distribution Width 17.4 % (11.5-14.5); White Blood Count 6.8 K/mm3 (4.5-10.0)
[2022-04-23 05:30] LABS: Albumin Level 2.6 g/dL (3.5-5.1); Anion Gap 3 mmol/L (8-16); Blood Urea Nitrogen 12 mg/dL (9-20); Calcium 7.9 mg/dL (8.4-10.2); Carbon Dioxide 30 mmol/L (22-30); Chloride 99 mmol/L (98-107); Estimated CRCL calculation 20 ml/min; Estimated Glomerular Filt Rate 19; Glucose 94 mg/dL (65-110); Magnesium 1.9 mg/dL (1.6-2.3); Phosphorus 3.5 mg/dL (2.5-4.5); Potassium 3.9 mmol/L (3.4-5.0); Sodium 132 mmol/L (137-145)
--- NOTE | 2022-04-23 07:51 | PM.PNCARD ---
Progress Note: A&P Assessment and Plan (1) Dizziness: Code(s): R42 - Dizziness and giddiness Status: Acute Assessment and Plan: Could be due to bradycardia, volume depletion, hepatic encephalopathy. (2) Atrial fibrillation: Code(s): I48.91 - Unspecified atrial fibrillation Status: Acute Assessment and Plan: Heart rate is OK in 50's predominantly. Obtain 30 day event monitor and f/u with me in 1 month[address] My office will place monitor prior to discharge. (3) Chronic diastolic congestive heart failure: Code(s): I50.32 - Chronic diastolic (congestive) heart failure Status: Acute Assessment and Plan: Stable. He gets hemodialysis. Subjective Date/time seen: 04/23/22 07:51 Interval history: Denies dizziness, sob, chest pains. He feels good this morning. Exam Const: General: cooperative, healthy appearing and comfortable Orientation/consciousness: oriented to person, oriented to place and oriented to time Resp: Auscultation: clear to auscultation bilaterally, no crackles, no rales, no rhonchi and no wheezes Cardio: Rate: regular rate Rhythm: abnormal rhythm Heart sounds: no murmurs Peripheral pulses: dorsalis pedis present Neuro: General: oriented to person, oriented to place and oriented to time Extrem: Right lower extremity: no edema Left lower extremity: no edema Objective Data Vital Signs Vital Signs: Vital Signs - 24 hr 04/22/22 08:00 04/22/22 08:00 04/22/22 08:00 Temperature Pulse Rate 61 57 L Respiratory Rate 24 H Blood Pressure 121/44 L Pulse Oximetry 90 Oxygen Delivery Room Air 04/22/22 09:15 04/22/22 10:23 04/22/22 11:07 Temperature 98.3 F Pulse Rate 47 L 51 L Respiratory Rate 16 Blood Pressure 180/50 H Pulse Oximetry Oxygen Delivery Room Air 04/22/22 11:14 04/22/22 11:20 04/22/22 12:00 Temperature Pulse Rate 54 L 47 L 53 L Respiratory Rate Blood Pressure 169/68 H 168/59 H 130/46 L Pulse Oximetry Oxygen Delivery 04/22/22 12:20 04/22/22 12:40 04/22/22 12:00 Temperature Pulse Rate 55 L 55 L 55 L Respiratory Rate Blood Pressure 109/44 L 131/54 L Pulse Oximetry Oxygen Delivery 04/22/22 13:00 04/22/22 13:20 04/22/22 13:40 Temperature Pulse Rate 52 L 53 L 51 L Respiratory Rate Blood Pressure 106/48 L 94/55 L 107/50 L Pulse Oximetry Oxygen Delivery 04/22/22 14:00 04/22/22 14:20 04/22/22 14:40 Temperature Pulse Rate 51 L 54 L 56 L Respiratory Rate Blood Pressure 111/48 L 116/52 L 101/48 L Pulse Oximetry Oxygen Delivery 04/22/22 14:47 04/22/22 14:50 04/22/22 14:00 Temperature 98.1 F Pulse Rate 56 L 52 L 53 L Respiratory Rate 18 Blood Pressure 144/50 H 144/40 H Pulse Oximetry Oxygen Delivery 04/22/22 15:22 04/22/22 16:00 04/22/22 18:00 Temperature 97.3 F L Pulse Rate 53 L 54 L 51 L Respiratory Rate 20 Blood Pressure 129/44 L Pulse Oximetry 93 Oxygen Delivery 04/22/22 19:39 04/22/22 23:24 04/22/22 20:00 Temperature 97.6 F 97.5 F L Pulse Rate 52 L 55 L Respiratory Rate 20 20 Blood Pressure 123/61 121/63 Pulse Oximetry 97 98 Oxygen Delivery Room Air 04/22/22 20:00 04/22/22 22:00 04/23/22 00:00 Temperature Pulse Rate 53 L 64 55 L Respiratory Rate Blood Pressure Pulse Oximetry Oxygen Delivery 04/23/22 02:00 04/23/22 04:00 Temperature 98.0 F Pulse Rate 54 L 61 Respiratory Rate 18 Blood Pressure 139/62 Pulse Oximetry 96 Oxygen Delivery Intake/Output Intake/Output: Intake & Output 04/20/22 04/21/22 04/22/22 04/23/22 23:59 23:59 23:59 23:59 Intake Total 570 1914 100 Output Total 2663 3000 0 Balance -2663 570 -1086 100 Meds/Results Medications: Active Medications Generic Name Dose Route Start Last Admin Trade Name Freq PRN Reason Stop Dose Admin Atropine Sulfate 0.5 mg 04/21/22 18:20 Atropine Sulfate 1 Mg/10 Ml Syringe I
[2022-04-23 07:58] LABS: Glucose Point of Care 116 mg/dl (65-105)
[2022-04-23] MEDS: LACTULOSE 20 GM/30 ML UDC PO (09:23)
[2022-04-23] MEDS: rifAXIMin 550 MG TABLET PO ×2 (09:24→20:27)
--- NOTE | 2022-04-23 10:16 | P.PNNP_ITS ---
Progress Note: A&P Assessment and Plan (1) End stage renal disease: Code(s): N18.6 - End stage renal disease Status: Chronic Assessment and Plan: * HD tomorrow to continue M/W/F dialysis schedule * follow electrolytes, volume status, and clearance (2) Bacteremia: Code(s): R78.81 - Bacteremia Status: Acute Assessment and Plan: * one set of blood culture with Gram positive bacilli * real versus contamination?? * suspect the later since only in one set of cultures * since he has functioning AV access, surgery consult to remove HD catheter (3) Altered mental status: Code(s): R41.82 - Altered mental status, unspecified Status: Acute Assessment and Plan: * improving * likely a combination of uremia and possibly hepatic encephalopathy * lactulose for elevated amonia * HD for possible uremia * follow mentation (4) Cirrhosis: Code(s): K74.60 - Unspecified cirrhosis of liver Status: Chronic Assessment and Plan: * chronic issue * now complicated by a degree of hepatic encephalopathy * on lactulose * supportive therapy (5) Paroxysmal atrial fibrillation: Code(s): I48.0 - Paroxysmal atrial fibrillation Status: Acute Assessment and Plan: * rate control strategy * no longer on anticoagulation due to a bleeding in the past and fall risk (6) Hypertension: Code(s): I10 - Essential (primary) hypertension Status: Chronic Assessment and Plan: * reasonable control * follow trend of hemodynamics (7) Chronic diastolic congestive heart failure: Code(s): I50.32 - Chronic diastolic (congestive) heart failure Status: Acute Assessment and Plan: * evidence of mild pulmonary edema by CXR * makes some urine -- on bumex * further fluid removal with dialysis (8) Anemia: Code(s): D64.9 - Anemia, unspecified Status: Acute Assessment and Plan: * due to ESRD * Epogen with HD * guiac positive stools noted -- related to hemorrhoids(?) * follow trend of H/H Will continue to follow - not opposed to discharge from renal perspective when otherwise medically stable. Subjective Date/time seen: 04/23/22 10:16 No apparent distress noted at this time; tolerated dialysis treatment yesterday without any issues or problems; no issues/events overnight or earlier this morning; asking about when he can go home. Exam Narrative: General: WD/WN male in NAD Heart: normal S1 and S2; no rub Lungs: clear anteriorly but decreased at bases Abdomen: soft, nontender, nondistended, positive bowel sounds Extremities: no cyanosis or clubbing; 1+ edema Skin: warm and dry Objective Data Vital Signs Vital Signs: Vital Signs Temp Pulse Resp BP Pulse Ox O2 Del Method 04/23/22 06:00 52 L 04/23/22 04:00 55 L 04/23/22 08:00 97.8 F 56 L 16 123/65 90 04/23/22 04:00 98.0 F 61 18 139/62 96 04/23/22 02:00 54 L 04/23/22 00:00 55 L 04/22/22 22:00 64 04/22/22 20:00 53 L 04/22/22 20:00 Room Air 04/22/22 23:24 97.5 F L 55 L 20 121/63 98 04/22/22 19:39 97.6 F 52 L 20 123/61 97 04/22/22 18:00 51 L 04/22/22 16:00 54 L 04/22/22 15:22 97.3 F L 53 L
--- NOTE | 2022-04-23 10:16 | PM.PNNEP ---
Progress Note: A&P Assessment and Plan (1) End stage renal disease: Code(s): N18.6 - End stage renal disease Status: Chronic Assessment and Plan: HD tomorrow to continue M/W/F dialysis schedule follow electrolytes, volume status, and clearance (2) Bacteremia: Code(s): R78.81 - Bacteremia Status: Acute Assessment and Plan: one set of blood culture with Gram positive bacilli real versus contamination?? suspect the later since only in one set of cultures since he has functioning AV access, surgery consult to remove HD catheter (3) Altered mental status: Code(s): R41.82 - Altered mental status, unspecified Status: Acute Assessment and Plan: improving likely a combination of uremia and possibly hepatic encephalopathy lactulose for elevated [place] HD for possible uremia follow mentation (4) Cirrhosis: Code(s): K74.60 - Unspecified cirrhosis of liver Status: Chronic Assessment and Plan: chronic issue now complicated by a degree of hepatic encephalopathy on lactulose supportive therapy (5) Paroxysmal atrial fibrillation: Code(s): I48.0 - Paroxysmal atrial fibrillation Status: Acute Assessment and Plan: rate control strategy no longer on anticoagulation due to a bleeding in the past and fall risk (6) Hypertension: Code(s): I10 - Essential (primary) hypertension Status: Chronic Assessment and Plan: reasonable control follow trend of hemodynamics (7) Chronic diastolic congestive heart failure: Code(s): I50.32 - Chronic diastolic (congestive) heart failure Status: Acute Assessment and Plan: evidence of mild pulmonary edema by CXR makes some urine -- on bumex further fluid removal with dialysis (8) Anemia: Code(s): D64.9 - Anemia, unspecified Status: Acute Assessment and Plan: due to ESRD Epogen with HD guiac positive stools noted -- related to hemorrhoids(?) follow trend of H/H Will continue to follow - not opposed to discharge from renal perspective when otherwise medically stable. Subjective Date/time seen: 04/23/22 10:16 No apparent distress noted at this time; tolerated dialysis treatment yesterday without any issues or problems; no issues/events overnight or earlier this morning; asking about when he can go home. Exam Narrative: General: WD/WN male in NAD Heart: normal S1 and S2; no rub Lungs: clear anteriorly but decreased at bases Abdomen: soft, nontender, nondistended, positive bowel sounds Extremities: no cyanosis or clubbing; 1+ edema Skin: warm and dry Objective Data Vital Signs Vital Signs: Vital Signs Temp Pulse Resp BP Pulse Ox O2 Del Method 04/23/22 06:00 52 L 04/23/22 04:00 55 L 04/23/22 08:00 97.8 F 56 L 16 123/65 90 04/23/22 04:00 98.0 F 61 18 139/62 96 04/23/22 02:00 54 L 04/23/22 00:00 55 L 04/22/22 22:00 64 04/22/22 20:00 53 L 04/22/22 20:00 Room Air 04/22/22 23:24 97.5 F L 55 L 20 121/63 98 04/22/22 19:39 97.6 F 52 L 20 123/61 97 04/22/22 18:00 51 L 04/22/22 16:00 54 L 04/22/22 15:22 97.3 F L 53 L 20 129/44 L 93 04/22/22 14:00 53 L 04/22/22 14:50 98.1 F 52 L 18 144/40 H 04/22/22 14:47 56 L 144/50 H 04/22/22 14:40 56 L 101/48 L 04/22/22 14:20 54 L 116/52 L 04/22/22 14:00 51 L 111/48 L 04/22/22 13:40 51 L 107/50 L 04/22/22 13:20 53 L 94/55 L 04/22/22 13:00 52 L 106/48 L 04/22/22 12:00 55 L 04/22/22 12:40 55 L 131/54 L 04/22/22 12:20 55 L 109/44 L 04/22/22 12:00 53 L 130/46 L 04/22/22 11:20 47 L 168/59 H 04/22/22 11:14 54 L 169/68 H 04/22/22 11:07 98.3 F 51 L 16 180/50 H 04/22/22 10:23 Room Air Intake/Output Intake/Output: Intake & Output 02/0
[2022-04-23 11:30] LABS: Glucose Point of Care 125 mg/dl (65-105)
--- NOTE | 2022-04-23 11:57 | WPDGIPROGNO ---
Progress Note: A&P Assessment and Plan (1) Encephalopathy: Code(s): G93.40 - Encephalopathy, unspecified Status: Acute Assessment and Plan: on lactulose, titrate to get 3-4 BM daily (2) Cirrhosis: Code(s): K74.60 - Unspecified cirrhosis of liver Status: Chronic Assessment and Plan: probably ferrer related will need follow-up in office and liver imaging every 6 months for hcc surveillance (3) End stage renal disease: Code(s): N18.6 - End stage renal disease Status: Acute Assessment and Plan: yesterday had dialysis (4) Hyperammonemia: Code(s): E72.20 - Disorder of urea cycle metabolism, unspecified Status: Acute Assessment and Plan: resolved continue with lactulose on discharge (5) Dizziness: Code(s): R42 - Dizziness and giddiness Status: Acute Subjective Date/time seen: 04/23/22 11:57 Interval history: doing well, fully awake. HD catheter was just removed Review of Systems Review of Systems: All systems reviewed & are unremarkable except as noted in HPI and below Exam Const: General: comfortable and no acute distress HENMT: Face/Nose/Sinus: Normal nares present Eyes: General: appearance normal, both eyes and all related structures Neck: Neck: no JVD Chest: Other: HD catheter just removed Resp: Auscultation: clear to auscultation bilaterally Cardio: Rate: regular rate Rhythm: regular rhythm GI: Inspection: non-distended GI Palp: Yes Soft to palpation, No Tenderness to palpation present (GI) and No Guarding due to palpation present (GI) Skin: General skin exam: normal color Neuro: Speech: normal speech Extrem: Other: trace edema legs av graft in arm Psych: Mental Status: mental status grossly normal Objective Data Vital Signs Vital Signs: Vital Signs - 24 hr 04/22/22 12:00 04/22/22 12:20 04/22/22 12:40 Temperature Pulse Rate 53 L 55 L 55 L Respiratory Rate Blood Pressure 130/46 L 109/44 L 131/54 L Pulse Oximetry Oxygen Delivery 04/22/22 12:00 04/22/22 13:00 04/22/22 13:20 Temperature Pulse Rate 55 L 52 L 53 L Respiratory Rate Blood Pressure 106/48 L 94/55 L Pulse Oximetry Oxygen Delivery 04/22/22 13:40 04/22/22 14:00 04/22/22 14:20 Temperature Pulse Rate 51 L 51 L 54 L Respiratory Rate Blood Pressure 107/50 L 111/48 L 116/52 L Pulse Oximetry Oxygen Delivery 04/22/22 14:40 04/22/22 14:47 04/22/22 14:50 Temperature 98.1 F Pulse Rate 56 L 56 L 52 L Respiratory Rate 18 Blood Pressure 101/48 L 144/50 H 144/40 H Pulse Oximetry Oxygen Delivery 04/22/22 14:00 04/22/22 15:22 04/22/22 16:00 Temperature 97.3 F L Pulse Rate 53 L 53 L 54 L Respiratory Rate 20 Blood Pressure 129/44 L Pulse Oximetry 93 Oxygen Delivery 04/22/22 18:00 04/22/22 19:39 04/22/22 23:24 Temperature 97.6 F 97.5 F L Pulse Rate 51 L 52 L 55 L Respiratory Rate 20 20 Blood Pressure 123/61 121/63 Pulse Oximetry 97 98 Oxygen Delivery 04/22/22 20:00 04/22/22 20:00 04/22/22 22:00 Temperature Pulse Rate 53 L 64 Respiratory Rate Blood Pressure Pulse Oximetry Oxygen Delivery Room Air 04/23/22 00:00 04/23/22 02:00 04/23/22 04:00 Temperature 98.0 F Pulse Rate 55 L 54 L 61 Respiratory Rate 18 Blood Pressure 139/62 Pulse Oximetry 96 Oxygen Delivery 04/23/22 08:00 04/23/22 04:00 04/23/22 06:00 Temperature 97.8 F Pulse Rate 56 L 55 L 52 L Respiratory Rate 16 Blood Pressure 123/65 Pulse Oximetry 90 Oxygen Delivery Intake/Output Intake/Output: Intake & Output 04/20/22 04/21/22 04/22/22 04/23/22 23:59 23:59 23:59 23:59 Intake Total 570 1914 340 Output Total 2663 3000 0 Balance -2663 570 -1086 340 Meds/Results Medications: Active Medications Generic Name Dose Route Start Last Admin Trade Name Freq PRN Reason Stop Dose Admin Atropine Sulfate 0.5 mg
--- NOTE | 2022-04-23 11:57 | PM.CNGS ---
Assessment and Plan Assessment and plan (1) End stage renal disease: Code(s): N18.6 - End stage renal disease Status: Acute Assessment and Plan: continue hemodialysis through upper extremity AV fistula, will remove right IJ tunneled hemodialysis catheter at bedside (2) Altered mental status: Code(s): R41.82 - Altered mental status, unspecified Status: Acute Assessment and Plan: much improved, continue management per primary team (3) Cirrhosis: Code(s): K74.60 - Unspecified cirrhosis of liver Status: Chronic Assessment and Plan: continue lactulose History of Present Illness Consult details Consult date: 04/23/22 Reason for consult: central line Requesting physician: Vitaliy Piper MD Narrative: The patient is a 71-year-old male with multiple medical issues presenting initially with mental status change. The mental status change has subsequently improved with treatment of hepatic encephalopathy and uremia. The patient does have end-stage renal disease and is on hemodialysis. The patient has a right IJ tunneled hemodialysis catheter that was placed at an outside facility approximately 3 months ago. The patient has since had an AV fistula that is now mature and functioning well. Surgery has been consulted for removal of the tunneled hemodialysis catheter. The patient denies any issues with the catheter, no signs or symptoms of infection. Review of Systems Review of Systems: All systems reviewed & are unremarkable except as noted in HPI and below PMFSH Past Medical History Medical History Chronic anemia Chronic diastolic congestive heart failure Echocardiogram in September 2019 showed normal left ventricular size and function with an ejection fraction estimated at 60 to 65% with abnormal diastolic function, moderate biatrial enlargement, mild aortic valve sclerosis, moderate aortic valve regurgitation, and trace mitral and tricuspid valve regurgitation. Chronic obstructive pulmonary disease Cirrhosis of liver with ascites Attributed to BURROWS however he has never had a liver biopsy. Coronary artery disease Status post 7 vessel CABG in 2007. No definite infarct or ischemia on nuclear stress test in September 2019. Diet-controlled type 2 diabetes mellitus End-stage renal disease on hemodialysis Erythropoietin deficiency anemia Gastroesophageal reflux disease GI bleed March 2014, November 2017, and more recently suspected occult GI loss in September 2019. Hyperlipidemia Hypertension Left bundle branch block Obstructive sleep apnea on CPAP The patient is supposed to use BiPAP but rarely uses it Paroxysmal atrial fibrillation not on long-term anticoagulation given history of GI bleed. Status post watchman left atrial appendage closure device insertion. Peripheral arterial disease Status post abdominal aortic aneurysm repair. Presence of Watchman left atrial appendage closure device Pulmonary hypertension Moderate pulmonary hypertension with an estimated pulmonary arterial systolic pressure of 50 mmHg on echocardiogram in September 2019. Renal osteodystrophy Ureterolithiasis (~09/2019) Surgical History Surgical History History of cataract extraction with lens replacement History of coronary artery bypass graft (~2007) 7 vessel bypass at [facility]. History of cystoscopy (~09/2019) With left ureteral stent and subsequent removal. History of penile implant History of squamous cell carcinoma excision (~11/2018) Excised from the left upper extremity. History of tonsillectomy History of ventral hernia repair (~09/2018) Family History Family History Mother Diabetes mellitus Acute myocardial infarction Father Family history of malignant neoplasm Family history of lung cancer Hypertension
--- NOTE | 2022-04-23 12:01 | W.PM.PROC2 ---
Procedure Note - Detailed Date of Procedure 04/23/22 Pre-op Diagnosis end-stage renal disease Post-op Diagnosis Same Procedure Performed removal of right internal jugular tunneled hemodialysis catheter Surgeon Elsa Duong MD Anesthesia None Indications 71-year-old male with end-stage renal disease requiring hemodialysis. Patient had right IJ tunneled hemodialysis catheter placed at outside facility approximately 3 months ago. The patient now has mature functioning upper extremity AV fistula and we have been consulted for dialysis catheter removal. Findings Removal of right IJ tunneled dialysis catheter Description of Procedure The patient was placed in the supine position. A time-out was then done to verify the patient's identity, as well as the procedure being performed. I began by prepping and draping the area around the right chest tunneled hemodialysis catheter. I then used a hemostat to bluntly dissect around the catheter opening. There was noted to be some adhesions to the tunneled cuff and I was able to bluntly dissect around this with the hemostat. Once I was able to free this area, using gentle traction I was able to remove the catheter in full. I then held pressure at the level of the right IJ for approximately 5 minutes. After 5 minutes, no bleeding was noted from the vein. I then placed a pressure dressing at the level of the right IJ. Sterile dressing was placed at the catheter exit site the right chest. The patient tolerated the procedure well and was alert and awake afterwards. Estimated Blood Loss 5 Urine Output 0 Complications No immediate complications Condition Stable Disposition No change [facility] Billing Surgery - Charge Forward: Surgery Billing
--- NOTE | 2022-04-23 13:25 | PCOTNOTE ---
Per RN, patient on bedrest until approx. 3-3:30pm following procedure. Will continue OT per plan of care.
--- NOTE | 2022-04-23 13:51 | PM.DS ---
DS: Summary Time Spent with Patient Time attestation: Total time spent providing and/or coordinating discharge services: DS: Data Data Completed and Pending Labs on day of discharge: Labs from last 24 hours 04/23/22 04/23/22 04/23/22 11:25 07:54 04:39 WBC RBC Hgb Hct MCV MCH MCHC RDW Plt Count MPV % Immature Plt Fraction Sodium Potassium Chloride Carbon Dioxide Anion Gap BUN Creatinine Estim Creat Clear Calc Estimated GFR Glucose POC Capillary Glucose 125 H 116 H Calcium Phosphorus Magnesium Ammonia 35 H Albumin 04/23/22 04/23/22 04/22/22 04:39 04:39 23:12 WBC 6.8 RBC 2.56 L Hgb 8.2 L Hct 26.6 L MCV 103.9 H MCH 32.0 MCHC 30.8 L RDW 17.4 H Plt Count 117 L MPV 9.2 % Immature Plt Fraction 2.3 Sodium 132 L Potassium 3.9 Chloride 99 Carbon Dioxide 30 Anion Gap 3 L BUN 12 D Creatinine 3.20 H Estim Creat Clear Calc 20 Estimated GFR 19 L Glucose 94 POC Capillary Glucose 130 H Calcium 7.9 L Phosphorus 3.5 Magnesium 1.9 Ammonia Albumin 2.6 L 04/22/22 04/22/22 18:34 15:13 WBC RBC Hgb Hct MCV MCH MCHC RDW Plt Count MPV % Immature Plt Fraction Sodium Potassium Chloride Carbon Dioxide Anion Gap BUN Creatinine Estim Creat Clear Calc Estimated GFR Glucose POC Capillary Glucose 132 H 99 Calcium Phosphorus Magnesium Ammonia Albumin Preliminary micro results at discharge 04/19/22 12:58 Blood Culture - Preliminary Blood Gram positive bacilli isolated 04/19/22 13:56 Blood Culture - Preliminary Blood Discharge Plan Discharge Attending physician on discharge: Vicenta Patricia Consulting providers: Vitaliy Piper ; Emler Sahu ; Peter Pollack ; Elsa Duong Discharging Clinician: Vicenta Patricia Patient Disposition: [facility] Jail[facility]Asst Living Activity: as tolerated Diet: renal and low sodium Discharge Instructions: Patient to follow-up with his cane stripper as scheduled for dialysis, patient to follow-up with his primary care provider andhepatologist as soon as possible, Patient Instructions: Antibiotic Form, Heart Failure (DC) Stand Alone Forms: General Discharge Information Follow-up/Referrals: Lida,Dolly Escalera MD [Primary Care Provider] - Peter Pollack DO [Physician] - Vitaliy Piper MD [Physician] - Discharge Medications: New lactulose 20 gram/30 mL Solution 20 g PO BID Qty: 500 0RF pantoprazole [Protonix] 40 mg tablet,delayed release (DR/EC) 40 mg PO QAM Qty: 30 0RF Xifaxan 550 mg Tablet 550 mg PO Q12HR Qty: 60 0RF Continued bumetanide 2 mg tablet 2 mg PO DAILY Label Comments: DAILY AT NOON Rx Instructions: at 1200 aspirin 81 mg tablet,delayed release (DR/EC) 81 mg PO DAILY atorvastatin 20 mg Tablet 20 mg PO DAILY Qty: 30 1RF Date of admission: 04/20/22 16:52 Primary Care Provider: Lida,Dolly Escalera Admitting Provider: Vicenta Patricia Attending physician on admission: Vicenta Patricia Condition: Serious
--- NOTE | 2022-04-23 15:23 | PM.IMPN ---
Progress Note: A&P Assessment and Plan (1) Encephalopathy: Code(s): G93.40 - Encephalopathy, unspecified Status: Acute Assessment and Plan: The patient was brought in via EMS from his assisted living facility for evaluation of altered mental status. He is encephalopathic and is alert and oriented x2 at the time my evaluation. He has no gross focal deficits noted on exam today though a brain CT would be prudent given his comorbidities and risk for stroke however that seems less likely. More over he is likely confused due to a combination metabolic encephalopathy from missed dialysis the last week and hyperammonemia. Nephrology has been consulted for dialysis orders.? He has no acute electrolyte abnormalities (sodium 125, potassium 5.1). He has been started on lactulose and ammonia will be repeated in the morning. Once again he has blood surrounding his stools which is not necessarily unusual for him and he has had multiple upper and lower endoscopies over the years. Hemoglobin/hematocrit have been stable and it does not seem as though he is actively hemorrhaging, likely his internal hemorrhoids are bleeding. Continue to monitor closely and transfuse if indicated. Blood pressures were stable. Random glucose today is 65, he has not been on medication for diabetes for quite some time. His coags are mildly prolonged, platelets are 98,000, and albumin is a bit low all pointing to his chronic cirrhosis. Continue to monitor volume status closely.? His home medications will be reviewed and resumed as appropriate. 04/23/2022: interval history:? patient with end-stage renal disease on hemodialysis patient had missed last 3 dialysis also history of liver cirrhosis and noncompliance with his medication lactulose upon arrival patient was quite somnolent his ammonia level was 72 and patient refused lactulose and on 04/20? morning his ammonia level was doubled to 135, gave patient lactulose eenema? and on 04/21? morning his ammonia level was down to 13, patient was more awake stated feeling much better denies any abdominal pain nausea or, vomiting,? apparently patient is not able to tolerate p.o. lactulose we may have to continue lactulose enema, patient had a hemodialysis on 04/20, his kidney function is improving,?today plan was to discharge however patient NH refused to take him back, alejandra reyes is working on finding place for him, also his old dialysis catheter was removed as his permanent catheter is now matured and is being used will continue to monitor. if remains clinically stable discharge patient tomorrow. (2) Hyperammonemia: Code(s): E72.20 - Disorder of urea cycle metabolism, unspecified Status: Acute (3) Rectal bleeding: Code(s): K62.5 - Hemorrhage of anus and rectum Status: Acute (4) Electrolyte abnormality: Code(s): E87.8 - Other disorders of electrolyte and fluid balance, not elsewhere classified Status: Acute (5) Chronic anemia: Code(s): D64.9 - Anemia, unspecified Status: Acute (6) End-stage renal disease on hemodialysis: Code(s): N18.6 - End stage renal disease; Z99.2 - Dependence on renal dialysis Status: Acute (7) Cirrhosis: Code(s): K74.60 - Unspecified cirrhosis of liver Status: Chronic Subjective Date/time seen: 04/23/22 15:23 The patient was brought in via EMS from his assisted living facility for evaluation of altered mental status. He is encephalopathic and is alert and oriented x2 at the time my evaluation. He has no gross focal deficits noted on exam today though a brain CT would be prudent given his comorbidities and risk for stroke however that seems less likely. More over he is likely confused due to a combination metabolic encephalopathy from missed dialysis the last week and hyperammonemia. Nephrology has been consulted for dialysis orders.? He has no acute electrolyte abnormalities (sodium 125, potassium 5.1). He has been started on lactulose
--- NOTE | 2022-04-23 16:39 | PC.NURSE ---
1145- Dr. Duogn at bedside- for removal of RIJ tunneled dialysis cath- time out performed- right pt / procedure Dr. Duong removed catheter- pressure was held - no bleeding- pressure dressing applied- pt to remain in bed for @ 3hrs minimal activity . @ 1500- dressing to RIJ area remains CDI- no bleeding noted
[2022-04-23 19:07] LABS: Glucose Point of Care 136 mg/dl (65-105)
[2022-04-23] MEDS: PANTOPRAZOLE SODIUM IV 40 MG VIAL IV PUSH (20:27)
[2022-04-24] VITALS (26 sets, daily range): BP systolic 98–141; BP diastolic 34–94; PULSE 43–57; RESP 16–18; TEMP 36–36.8; O2SAT 90–97
[2022-04-24 00:16] LABS: Glucose Point of Care 112 mg/dl (65-105)
[2022-04-24 04:29] LABS: Hematocrit 27.6 % (42.0-52.0); Hemoglobin 8.6 g/dL (14.0-18.0); Mean Corpuscular HGB Conc 31.2 g/dl (32-36); Mean Corpuscular Hemoglobin 32.1 pg (26-34); Mean Platelet Volume 9.1 fl (7.4-10.4); Platelet Count Result 107 k/mm3 (150-375); Red Blood Count 2.68 M/mm3 (4.6-6.20); Red Cell Distribution Width 17.7 % (11.5-14.5); White Blood Count 8.6 K/mm3 (4.5-10.0)
[2022-04-24 04:34] LABS: Ammonia 33 umol/L (9-30)
[2022-04-24 04:50] LABS: Albumin Level 2.5 g/dL (3.5-5.1); Anion Gap 5 mmol/L (8-16); Blood Urea Nitrogen 15 mg/dL (9-20); Calcium 8.1 mg/dL (8.4-10.2); Carbon Dioxide 27 mmol/L (22-30); Chloride 100 mmol/L (98-107); Estimated CRCL calculation 16 ml/min; Estimated Glomerular Filt Rate 14; Glucose 92 mg/dL (65-110); Magnesium 1.8 mg/dL (1.6-2.3); Phosphorus 3.8 mg/dL (2.5-4.5); Potassium 4.2 mmol/L (3.4-5.0); Sodium 132 mmol/L (137-145)
--- NOTE | 2022-04-24 07:49 | PM.PNCARD ---
Progress Note: A&P Assessment and Plan (1) Dizziness: Code(s): R42 - Dizziness and giddiness Status: Acute Assessment and Plan: Could be due to bradycardia, volume depletion, hepatic encephalopathy. (2) Atrial fibrillation: Code(s): I48.91 - Unspecified atrial fibrillation Status: Acute Assessment and Plan: Heart rate is OK in 50's predominantly. 30 day event monitor placed and f/u with me in 1 month. May d/c home from cardiology standpoint. (3) Chronic diastolic congestive heart failure: Code(s): I50.32 - Chronic diastolic (congestive) heart failure Status: Acute Assessment and Plan: Stable. He gets hemodialysis. Had IJ HD catheter removed yesterday. Subjective Date/time seen: 04/24/22 07:49 Interval history: Denies dizziness, sob, chest pains. He feels good this morning. Exam Const: General: cooperative, healthy appearing and comfortable Orientation/consciousness: oriented to person, oriented to place and oriented to time Resp: Auscultation: clear to auscultation bilaterally, no crackles, no rales, no rhonchi and no wheezes Cardio: Rate: regular rate and bradycardic Rhythm: abnormal rhythm Heart sounds: no murmurs Peripheral pulses: dorsalis pedis present Neuro: General: oriented to person, oriented to place and oriented to time Extrem: Right lower extremity: no edema Left lower extremity: no edema Objective Data Vital Signs Vital Signs: Vital Signs - 24 hr 04/23/22 08:00 04/23/22 12:00 04/23/22 09:00 Temperature 97.8 F 98.1 F Pulse Rate 56 L 50 L 60 Respiratory Rate 16 20 Blood Pressure 123/65 113/32 L Pulse Oximetry 90 90 Oxygen Delivery Oxygen Flow Rate 04/23/22 09:00 04/23/22 10:00 04/23/22 12:00 Temperature Pulse Rate 54 L 60 Respiratory Rate Blood Pressure Pulse Oximetry 96 Oxygen Delivery Nasal Cannula Oxygen Flow Rate 1 04/23/22 14:00 04/23/22 16:00 04/23/22 16:00 Temperature 97.0 F L Pulse Rate 47 L 50 L 50 L Respiratory Rate 20 Blood Pressure 92/45 L Pulse Oximetry 92 Oxygen Delivery Oxygen Flow Rate 04/23/22 18:00 04/23/22 20:00 04/23/22 20:00 Temperature 97.3 F L Pulse Rate 42 L 43 L 46 L Respiratory Rate 18 Blood Pressure 113/42 L Pulse Oximetry 95 Oxygen Delivery Oxygen Flow Rate 04/24/22 00:00 04/23/22 22:00 04/24/22 00:00 Temperature 97 F L Pulse Rate 52 L 45 L 44 L Respiratory Rate 16 Blood Pressure 119/47 L Pulse Oximetry 96 Oxygen Delivery Oxygen Flow Rate 04/24/22 02:00 04/24/22 04:00 04/24/22 04:00 Temperature 97.6 F Pulse Rate 43 L 51 L 50 L Respiratory Rate 16 Blood Pressure 116/49 L Pulse Oximetry 90 Oxygen Delivery Oxygen Flow Rate 04/24/22 06:00 Temperature Pulse Rate 44 L Respiratory Rate Blood Pressure Pulse Oximetry Oxygen Delivery Oxygen Flow Rate Intake/Output Intake/Output: Intake & Output 04/21/22 04/22/22 04/23/22 04/24/22 23:59 23:59 23:59 23:59 Intake Total 570 1914 1020 100 Output Total 3000 0 0 Balance 570 -1086 1020 100 Meds/Results Medications: Active Medications Generic Name Dose Route Start Last Admin Trade Name Freq PRN Reason Stop Dose Admin Atropine Sulfate 0.5 mg 04/21/22 18:20 Atropine Sulfate 1 Mg/10 Ml Syringe IV PUSH ONCE PRN HR <40 Dextrose 12.5 gm 04/21/22 05:34 Dextrose 50% 25 Gm/50 Ml Syringe IV PUSH PRN PRN Hypoglycemia Protocol Epoetin Wily-epbx 10,000 units 04/24/22 20:14 Epoetin Wily-Epbx 10,000 Units/Ml Vial IV PUSH 04/24/22 20:15 ONCE ONE Glucagon 1 mg 04/21/22 05:34 Glucagon For Inj 1 Mg Vial IM PRN PRN Hypoglycemia Protocol Glucose 15 gm 04/21/22 05:34 Glucose Oral Gel 15 Gm Of Glucse In 37.5 Gm Tube PO PRN PRN Hypoglycemia Protocol Dextrose 1,000 mls @ 100 mls/hr 04/21/22 05:34 Dextrose 5% 1,000 Ml IVPB
[2022-04-24] MEDS: SODIUM CHLORIDE 0.9% IV 1,000 ML 999 ML IV CONT (10:26)
[2022-04-24] MEDS: EPOETIN ALFA-EPBX 10,000 UNITS/ML VIAL 10000 UNITS IV PUSH (10:27)
--- NOTE | 2022-04-24 10:46 | PM.IMPN ---
Progress Note: A&P Assessment and Plan (1) Encephalopathy: Code(s): G93.40 - Encephalopathy, unspecified Status: Acute Assessment and Plan: The patient was brought in via EMS from his assisted living facility for evaluation of altered mental status. He is encephalopathic and is alert and oriented x2 at the time my evaluation. He has no gross focal deficits noted on exam today though a brain CT would be prudent given his comorbidities and risk for stroke however that seems less likely. More over he is likely confused due to a combination metabolic encephalopathy from missed dialysis the last week and hyperammonemia. Nephrology has been consulted for dialysis orders.? He has no acute electrolyte abnormalities (sodium 125, potassium 5.1). He has been started on lactulose and ammonia will be repeated in the morning. Once again he has blood surrounding his stools which is not necessarily unusual for him and he has had multiple upper and lower endoscopies over the years. Hemoglobin/hematocrit have been stable and it does not seem as though he is actively hemorrhaging, likely his internal hemorrhoids are bleeding. Continue to monitor closely and transfuse if indicated. Blood pressures were stable. Random glucose today is 65, he has not been on medication for diabetes for quite some time. His coags are mildly prolonged, platelets are 98,000, and albumin is a bit low all pointing to his chronic cirrhosis. Continue to monitor volume status closely.? His home medications will be reviewed and resumed as appropriate. 04/24/2022: interval history:? patient with end-stage renal disease on hemodialysis patient had missed last 3 dialysis also history of liver cirrhosis and noncompliance with his medication lactulose upon arrival patient was quite somnolent his ammonia level was 72 and patient refused lactulose and on 04/20? morning his ammonia level was doubled to 135, gave patient lactulose eenema? and on 04/21? morning his ammonia level was down to 13, patient was more awake stated feeling much better denies any abdominal pain nausea or, vomiting,? apparently patient is not able to tolerate p.o. lactulose we may have to continue lactulose enema, patient had a hemodialysis on 04/20, his kidney function is improving,?today plan was to discharge however patient [facility] refused to take him back, [facility] is working on finding place for him, on 04/23 also his old dialysis catheter was removed as his permanent catheter is now matured and is being used Patient was seen by Cardiology and placed 30 day Holter monitor and will follow-up as outpatient, will continue to monitor. if remains clinically stable discharge patient tomorrow. (2) Hyperammonemia: Code(s): E72.20 - Disorder of urea cycle metabolism, unspecified Status: Acute (3) Rectal bleeding: Code(s): K62.5 - Hemorrhage of anus and rectum Status: Acute (4) Electrolyte abnormality: Code(s): E87.8 - Other disorders of electrolyte and fluid balance, not elsewhere classified Status: Acute (5) Chronic anemia: Code(s): D64.9 - Anemia, unspecified Status: Acute (6) End-stage renal disease on hemodialysis: Code(s): N18.6 - End stage renal disease; Z99.2 - Dependence on renal dialysis Status: Acute (7) Cirrhosis: Code(s): K74.60 - Unspecified cirrhosis of liver Status: Chronic Subjective Date/time seen: 04/24/22 10:46 The patient was brought in via EMS from his assisted living facility for evaluation of altered mental status. He is encephalopathic and is alert and oriented x2 at the time my evaluation. He has no gross focal deficits noted on exam today though a brain CT would be prudent given his comorbidities and risk for stroke however that seems less likely. More over he is likely confused due to a combination metabolic encephalopathy from missed dialysis the last week and hyperammonemia. Nephrology has been consulted for dialysis orders.
--- NOTE | 2022-04-24 11:06 | P.PNNP_ITS ---
Progress Note: A&P Assessment and Plan (1) End stage renal disease: Code(s): N18.6 - End stage renal disease Status: Chronic Assessment and Plan: * HD today to continue M/W/F dialysis schedule * follow electrolytes, volume status, and clearance (2) Bacteremia: Code(s): R78.81 - Bacteremia Status: Acute Assessment and Plan: * one set of blood culture with Gram positive bacilli * real versus contamination?? * suspect the later since only in one set of cultures * s/p removal of HD catheter by Surgery yesterday (3) Altered mental status: Code(s): R41.82 - Altered mental status, unspecified Status: Acute Assessment and Plan: * improving * likely a combination of uremia and possibly hepatic encephalopathy * lactulose for elevated amonia * HD for possible uremia * follow mentation (4) Cirrhosis: Code(s): K74.60 - Unspecified cirrhosis of liver Status: Chronic Assessment and Plan: * chronic issue * now complicated by a degree of hepatic encephalopathy * on lactulose * supportive therapy (5) Paroxysmal atrial fibrillation: Code(s): I48.0 - Paroxysmal atrial fibrillation Status: Acute Assessment and Plan: * rate control strategy * no longer on anticoagulation due to a bleeding in the past and fall risk (6) Hypertension: Code(s): I10 - Essential (primary) hypertension Status: Chronic Assessment and Plan: * reasonable control * follow trend of hemodynamics (7) Chronic diastolic congestive heart failure: Code(s): I50.32 - Chronic diastolic (congestive) heart failure Status: Acute Assessment and Plan: * evidence of mild pulmonary edema by CXR * makes some urine -- on bumex * further fluid removal with dialysis (8) Anemia: Code(s): D64.9 - Anemia, unspecified Status: Acute Assessment and Plan: * due to ESRD * Epogen with HD * guiac positive stools noted -- related to hemorrhoids(?) * GI recommendations noted * follow trend of H/H Will continue to follow - not opposed to discharge from renal perspective when otherwise medically stable. Subjective Date/time seen: 04/24/22 11:06 Tolerating hemodialysis treatment at the time of my visit (seen on HD at 10:50AM); s/p removal of tunneled HD catheter yesterday and tolerated this intervention as well; mentation seems back to baseline; no other acute complaints voiced. Exam Narrative: General: WD/WN male in NAD Heart: normal S1 and S2; no rub Lungs: clear anteriorly but decreased at bases Abdomen: soft, nontender, nondistended, positive bowel sounds Extremities: no cyanosis or clubbing; 1+ edema Skin: warm and intact Objective Data Vital Signs Vital Signs: Vital Signs Temp Pulse Resp BP Pulse Ox O2 Del Method 04/24/22 10:40 50 L 118/54 L 04/24/22 10:32 95 Room Air 04/24/22 10:15 49 L 107/49 L 04/24/22 09:55 47 L 98/43 L 04/24/22 09:30 47 L 100/94 H 04/24/22 08:55 97.7 F 47 L 16 136/56 L 04/24/22 09:19 47 L 123/52 L 04/24/22 08:00 98.3 F 45 L 16 122/39 L 95 04/24/22 06:00 44 L 04/24/22 04:00 97.6 F 50 L 16 116/49 L 90 04/24/22 04:00 51 L 04/24/22 02:00 43
--- NOTE | 2022-04-24 11:06 | PM.PNNEP ---
Progress Note: A&P Assessment and Plan (1) End stage renal disease: Code(s): N18.6 - End stage renal disease Status: Chronic Assessment and Plan: HD today to continue M/W/F dialysis schedule follow electrolytes, volume status, and clearance (2) Bacteremia: Code(s): R78.81 - Bacteremia Status: Acute Assessment and Plan: one set of blood culture with Gram positive bacilli real versus contamination?? suspect the later since only in one set of cultures s/p removal of HD catheter by Surgery yesterday (3) Altered mental status: Code(s): R41.82 - Altered mental status, unspecified Status: Acute Assessment and Plan: improving likely a combination of uremia and possibly hepatic encephalopathy lactulose for elevated amonia HD for possible uremia follow mentation (4) Cirrhosis: Code(s): K74.60 - Unspecified cirrhosis of liver Status: Chronic Assessment and Plan: chronic issue now complicated by a degree of hepatic encephalopathy on lactulose supportive therapy (5) Paroxysmal atrial fibrillation: Code(s): I48.0 - Paroxysmal atrial fibrillation Status: Acute Assessment and Plan: rate control strategy no longer on anticoagulation due to a bleeding in the past and fall risk (6) Hypertension: Code(s): I10 - Essential (primary) hypertension Status: Chronic Assessment and Plan: reasonable control follow trend of hemodynamics (7) Chronic diastolic congestive heart failure: Code(s): I50.32 - Chronic diastolic (congestive) heart failure Status: Acute Assessment and Plan: evidence of mild pulmonary edema by CXR makes some urine -- on bumex further fluid removal with dialysis (8) Anemia: Code(s): D64.9 - Anemia, unspecified Status: Acute Assessment and Plan: due to ESRD Epogen with HD guiac positive stools noted -- related to hemorrhoids(?) GI recommendations noted follow trend of H/H Will continue to follow - not opposed to discharge from renal perspective when otherwise medically stable. Subjective Date/time seen: 04/24/22 11:06 Tolerating hemodialysis treatment at the time of my visit (seen on HD at 10:50AM); s/p removal of tunneled HD catheter yesterday and tolerated this intervention as well; mentation seems back to baseline; no other acute complaints voiced. Exam Narrative: General: WD/WN male in NAD Heart: normal S1 and S2; no rub Lungs: clear anteriorly but decreased at bases Abdomen: soft, nontender, nondistended, positive bowel sounds Extremities: no cyanosis or clubbing; 1+ edema Skin: warm and intact Objective Data Vital Signs Vital Signs: Vital Signs Temp Pulse Resp BP Pulse Ox O2 Del Method 04/24/22 10:40 50 L 118/54 L 04/24/22 10:32 95 Room Air 04/24/22 10:15 49 L 107/49 L 04/24/22 09:55 47 L 98/43 L 04/24/22 09:30 47 L 100/94 H 04/24/22 08:55 97.7 F 47 L 16 136/56 L 04/24/22 09:19 47 L 123/52 L 04/24/22 08:00 98.3 F 45 L 16 122/39 L 95 04/24/22 06:00 44 L 04/24/22 04:00 97.6 F 50 L 16 116/49 L 90 04/24/22 04:00 51 L 04/24/22 02:00 43 L 04/24/22 00:00 44 L 04/23/22 22:00 45 L 04/24/22 00:00 97 F L 52 L 16 119/47 L 96 04/23/22 20:00 46 L 04/23/22 20:00 97.3 F L 43 L 18 113/42 L 95 04/23/22 18:00 42 L 04/23/22 16:00 50 L 04/23/22 16:00 97.0 F L 50 L 20 92/45 L 92 04/23/22 14:00 47 L 04/23/22 12:00 60 04/23/22 12:00 98.1 F 50 L 20 113/32 L 90 Intake/Output Intake/Output: Intake & Output 04/21/22 04/22/22 04/23/22 04/24/22 23:59 23:59 23:59 23:59 Intake Total 570 1914 1020 340 Output Total 3000 0 0 Balance 570 -1086 1020 340 Meds/Results Medications: Active Medications Generic Name Dose Route Start Last A
--- NOTE | 2022-04-24 12:29 | WPDGIPROGNO ---
Progress Note: A&P Assessment and Plan (1) Encephalopathy: Code(s): G93.40 - Encephalopathy, unspecified Status: Acute Assessment and Plan: resolved he can go home and continue with lactulose, titrate to get 3-4 BM daily will follow from af[facility] (2) Cirrhosis: Code(s): K74.60 - Unspecified cirrhosis of liver Status: Chronic Assessment and Plan: probably ferrer related will need follow-up in office and liver imaging every 6 months for hcc surveillance (3) End stage renal disease: Code(s): N18.6 - End stage renal disease Status: Acute Assessment and Plan: dialysis today (4) Hyperammonemia: Code(s): E72.20 - Disorder of urea cycle metabolism, unspecified Status: Acute Assessment and Plan: resolved continue with lactulose on discharge (5) Dizziness: Code(s): R42 - Dizziness and giddiness Status: Acute Subjective Date/time seen: 04/24/22 12:29 Interval history: he is comfortable and now he is getting dialysis Review of Systems Review of Systems: All systems reviewed & are unremarkable except as noted in HPI and below Exam Const: General: comfortable and no acute distress HENMT: Face/Nose/Sinus: Normal nares present Eyes: General: appearance normal, both eyes and all related structures Neck: Neck: no JVD Resp: Auscultation: clear to auscultation bilaterally Cardio: Rate: regular rate Rhythm: regular rhythm GI: Inspection: non-distended GI Palp: Yes Soft to palpation, No Tenderness to palpation present (GI) and No Guarding due to palpation present (GI) Skin: General skin exam: normal color Neuro: Speech: normal speech Extrem: Other: trace edema legs av graft in arm Psych: Mental Status: mental status grossly normal Objective Data Vital Signs Vital Signs: Vital Signs - 24 hr 04/23/22 14:00 04/23/22 16:00 04/23/22 16:00 Temperature 97.0 F L Pulse Rate 47 L 50 L 50 L Respiratory Rate 20 Blood Pressure 92/45 L Pulse Oximetry 92 Oxygen Delivery 04/23/22 18:00 04/23/22 20:00 04/23/22 20:00 Temperature 97.3 F L Pulse Rate 42 L 43 L 46 L Respiratory Rate 18 Blood Pressure 113/42 L Pulse Oximetry 95 Oxygen Delivery 04/24/22 00:00 04/23/22 22:00 04/24/22 00:00 Temperature 97 F L Pulse Rate 52 L 45 L 44 L Respiratory Rate 16 Blood Pressure 119/47 L Pulse Oximetry 96 Oxygen Delivery 04/24/22 02:00 04/24/22 04:00 04/24/22 04:00 Temperature 97.6 F Pulse Rate 43 L 51 L 50 L Respiratory Rate 16 Blood Pressure 116/49 L Pulse Oximetry 90 Oxygen Delivery 04/24/22 06:00 04/24/22 08:00 04/24/22 09:19 Temperature 98.3 F Pulse Rate 44 L 45 L 47 L Respiratory Rate 16 Blood Pressure 122/39 L 123/52 L Pulse Oximetry 95 Oxygen Delivery 04/24/22 08:55 04/24/22 09:30 04/24/22 09:55 Temperature 97.7 F Pulse Rate 47 L 47 L 47 L Respiratory Rate 16 Blood Pressure 136/56 L 100/94 H 98/43 L Pulse Oximetry Oxygen Delivery 04/24/22 10:15 04/24/22 10:32 04/24/22 10:40 Temperature Pulse Rate 49 L 50 L Respiratory Rate Blood Pressure 107/49 L 118/54 L Pulse Oximetry 95 Oxygen Delivery Room Air 04/24/22 11:00 04/24/22 08:00 04/24/22 10:00 Temperature Pulse Rate 49 L 47 L 49 L Respiratory Rate Blood Pressure 128/54 L Pulse Oximetry Oxygen Delivery 04/24/22 11:20 04/24/22 11:40 04/24/22 12:00 Temperature Pulse Rate 50 L 50 L 49 L Respiratory Rate Blood Pressure 115/51 L 126/52 L 127/54 L Pulse Oximetry Oxygen Delivery 04/24/22 12:20 Temperature Pulse Rate 52 L Respiratory Rate Blood Pressure 125/57 L Pulse Oximetry Oxygen Delivery Intake/Output Intake/Output: Intake & Output 04/21/22 04/22/22 04/23/22 04/24/22 23:59 23:59 23:59 23:59 Intake Total 570 1914 1020 340 Output Total 3000 0 0 Balance 570 -1086 1020 340 Meds/Results Medications:
[2022-04-24 13:17] LABS: Glucose Point of Care 95 mg/dl (65-105)
[2022-04-24] MEDS: PANTOPRAZOLE SODIUM IV 40 MG VIAL IV PUSH ×2 (13:29→20:03)
[2022-04-24] MEDS: LACTULOSE 20 GM/30 ML UDC PO (13:29)
[2022-04-24] MEDS: rifAXIMin 550 MG TABLET PO ×2 (13:30→20:03)
[2022-04-24 16:53] LABS: Glucose Point of Care 133 mg/dl (65-105)
[2022-04-25] VITALS (12 sets, daily range): BP systolic 108–134; BP diastolic 36–44; PULSE 41–61; RESP 18–22; TEMP 36–36.8; O2SAT 91–100
[2022-04-25 04:52] LABS: Hematocrit 27.8 % (42.0-52.0); Hemoglobin 8.5 g/dL (14.0-18.0); Mean Corpuscular HGB Conc 30.6 g/dl (32-36); Mean Corpuscular Hemoglobin 32.1 pg (26-34); Mean Corpuscular Volume 104.9 fl (80-100); Mean Platelet Volume 9.2 fl (7.4-10.4); Platelet Count Result 128 k/mm3 (150-375); Red Blood Count 2.65 M/mm3 (4.6-6.20); Red Cell Distribution Width 17.7 % (11.5-14.5); White Blood Count 7.4 K/mm3 (4.5-10.0)
[2022-04-25 05:00] LABS: Ammonia 10 umol/L (9-30)
[2022-04-25 05:30] LABS: Albumin Level 2.6 g/dL (3.5-5.1); Anion Gap 1 mmol/L (8-16); Blood Urea Nitrogen 9 mg/dL (9-20); Calcium 8.4 mg/dL (8.4-10.2); Carbon Dioxide 30 mmol/L (22-30); Chloride 101 mmol/L (98-107); Estimated CRCL calculation 21 ml/min; Estimated Glomerular Filt Rate 20; Glucose 80 mg/dL (65-110); Phosphorus 3.1 mg/dL (2.5-4.5); Potassium 3.9 mmol/L (3.4-5.0); Sodium 132 mmol/L (137-145)
--- NOTE | 2022-04-25 08:06 | PM.PNCARD ---
Progress Note: A&P Assessment and Plan (1) Dizziness: Code(s): R42 - Dizziness and giddiness Status: Acute Assessment and Plan: Could be due to bradycardia, volume depletion, hepatic encephalopathy. (2) Atrial fibrillation: Code(s): I48.91 - Unspecified atrial fibrillation Status: Acute Assessment and Plan: Heart rate is OK in 50's predominantly. 30 day event monitor placed and f/u with me in 1 month. July d/c home from cardiology standpoint. (3) Chronic diastolic congestive heart failure: Code(s): I50.32 - Chronic diastolic (congestive) heart failure Status: Acute Assessment and Plan: Stable. He gets hemodialysis via arm fistula. Subjective Date/time seen: 04/25/22 08:06 Interval history: Denies dizziness, sob, chest pains. He feels good this morning. Exam Const: General: cooperative, healthy appearing and comfortable Orientation/consciousness: oriented to person, oriented to place and oriented to time Resp: Auscultation: clear to auscultation bilaterally, no crackles, no rales, no rhonchi and no wheezes Cardio: Rate: regular rate and bradycardic Rhythm: abnormal rhythm Heart sounds: no murmurs Peripheral pulses: dorsalis pedis present Neuro: General: oriented to person, oriented to place and oriented to time Extrem: Right lower extremity: no edema Left lower extremity: no edema Objective Data Vital Signs Vital Signs: Vital Signs - 24 hr 04/24/22 09:19 04/24/22 08:55 04/24/22 09:30 Temperature 97.7 F Pulse Rate 47 L 47 L 47 L Respiratory Rate 16 Blood Pressure 123/52 L 136/56 L 100/94 H Pulse Oximetry Oxygen Delivery 04/24/22 09:55 04/24/22 10:15 04/24/22 10:32 Temperature Pulse Rate 47 L 49 L Respiratory Rate Blood Pressure 98/43 L 107/49 L Pulse Oximetry 95 Oxygen Delivery Room Air 04/24/22 10:40 04/24/22 11:00 04/24/22 10:00 Temperature Pulse Rate 50 L 49 L 49 L Respiratory Rate Blood Pressure 118/54 L 128/54 L Pulse Oximetry Oxygen Delivery 04/24/22 11:20 04/24/22 11:40 04/24/22 12:00 Temperature Pulse Rate 50 L 50 L 49 L Respiratory Rate Blood Pressure 115/51 L 126/52 L 127/54 L Pulse Oximetry Oxygen Delivery 04/24/22 12:20 04/24/22 12:40 04/24/22 12:51 Temperature Pulse Rate 52 L 50 L 50 L Respiratory Rate Blood Pressure 125/57 L 141/58 H 123/55 L Pulse Oximetry Oxygen Delivery 04/24/22 13:12 04/24/22 12:00 04/24/22 14:00 Temperature 97.9 F Pulse Rate 49 L 54 L 45 L Respiratory Rate 16 Blood Pressure 135/63 Pulse Oximetry Oxygen Delivery 04/24/22 16:00 04/24/22 16:00 04/24/22 18:00 Temperature 97.7 F Pulse Rate 43 L 55 L 45 L Respiratory Rate 18 Blood Pressure 130/41 L Pulse Oximetry 97 Oxygen Delivery 04/24/22 20:00 04/24/22 20:00 04/24/22 22:00 Temperature 97.5 F L Pulse Rate 57 L 57 L 56 L Respiratory Rate 18 Blood Pressure 115/34 L Pulse Oximetry 95 Oxygen Delivery 04/25/22 00:00 04/25/22 00:00 04/25/22 02:00 Temperature 97.3 F L Pulse Rate 42 L 54 L 53 L Respiratory Rate 18 Blood Pressure 108/36 L Pulse Oximetry 96 Oxygen Delivery 04/25/22 04:00 04/25/22 04:00 04/25/22 06:00 Temperature 97.2 F L Pulse Rate 47 L 56 L 53 L Respiratory Rate 18 Blood Pressure 126/43 L Pulse Oximetry 98 Oxygen Delivery Intake/Output Intake/Output: Intake & Output 04/22/22 04/23/22 04/24/22 04/25/22 23:59 23:59 23:59 23:59 Intake Total 1914 1020 940 200 Output Total 3000 0 2000 Balance -1086 1020 -1060 200 Meds/Results Medications: Active Medications Generic Name Dose Route Start Last Admin Trade Name Freq PRN Reason Stop Dose Admin Atropine Sulfate 0.5 mg 04/21/22 18:20 Atropine Sulfate 1 Mg/10 Ml Syringe IV PUSH ONCE PRN HR <40 Dextrose 12.5 gm 04/21/22 05:34 Dextrose 50% 25 Gm/50 Ml Syringe IV PUSH PRN [place]
[2022-04-25] MEDS: PANTOPRAZOLE SODIUM IV 40 MG VIAL IV PUSH ×2 (09:19→20:08)
[2022-04-25] MEDS: LACTULOSE 20 GM/30 ML UDC PO (09:19)
[2022-04-25] MEDS: rifAXIMin 550 MG TABLET PO ×2 (09:19→20:08)
[2022-04-25 12:13] LABS: Glucose Point of Care 140 mg/dl (65-105)
--- NOTE | 2022-04-25 12:49 | PM.PNNEP ---
Progress Note: A&P Assessment and Plan (1) End stage renal disease: Code(s): N18.6 - End stage renal disease Status: Chronic Assessment and Plan: HD tomorrow to continue M/W/F dialysis schedule follow electrolytes, volume status, and clearance (2) Bacteremia: Code(s): R78.81 - Bacteremia Status: Acute Assessment and Plan: one set of blood culture with Gram positive bacilli real versus contamination?? suspect the later since only in one set of cultures s/p removal of HD catheter by Surgery yesterday (3) Altered mental status: Code(s): R41.82 - Altered mental status, unspecified Status: Acute Assessment and Plan: improving likely a combination of uremia and possibly hepatic encephalopathy lactulose for elevated amonia HD done for possible uremia follow mentation (4) Cirrhosis: Code(s): K74.60 - Unspecified cirrhosis of liver Status: Chronic Assessment and Plan: chronic issue now complicated by a degree of hepatic encephalopathy on lactulose supportive therapy (5) Paroxysmal atrial fibrillation: Code(s): I48.0 - Paroxysmal atrial fibrillation Status: Acute Assessment and Plan: rate control strategy no longer on anticoagulation due to a bleeding in the past and fall risk (6) Hypertension: Code(s): I10 - Essential (primary) hypertension Status: Chronic Assessment and Plan: reasonable control follow trend of hemodynamics (7) Chronic diastolic congestive heart failure: Code(s): I50.32 - Chronic diastolic (congestive) heart failure Status: Acute Assessment and Plan: evidence of mild pulmonary edema by CXR makes some urine -- on bumex further fluid removal with dialysis (8) Anemia: Code(s): D64.9 - Anemia, unspecified Status: Acute Assessment and Plan: due to ESRD Epogen with HD guiac positive stools noted -- related to hemorrhoids(?) GI recommendations noted follow trend of H/H Will continue to follow - not opposed to discharge from renal perspective when otherwise medically stable. Subjective Date/time seen: 04/25/22 12:49 Tolerated hemodialysis treatment yesterday without any issues or problems aside from limited fluid removal due to relative hypotension; mentation continues to improve if not stabilize with current interventions; no apparent distress noted at this time. Exam Narrative: General: WD/WN male in NAD Heart: normal S1 and S2; no rub Lungs: clear anteriorly but decreased at bases Abdomen: soft, nontender, nondistended, positive bowel sounds Extremities: no cyanosis or clubbing; 1+ edema Skin: no rash Objective Data Vital Signs Vital Signs: Vital Signs Temp Pulse Resp BP Pulse Ox O2 Del Method 04/25/22 12:00 97.4 F L 48 L 18 134/44 L 97 04/25/22 12:00 49 L 04/25/22 10:00 52 L 04/25/22 10:16 Room Air 04/25/22 08:00 43 L 04/25/22 09:59 Room Air 04/25/22 08:00 96.8 F L 47 L 18 125/42 L 97 04/25/22 06:00 53 L 04/25/22 04:00 97.2 F L 56 L 18 126/43 L 98 04/25/22 04:00 47 L 04/25/22 02:00 53 L 04/25/22 00:00 97.3 F L 54 L 18 108/36 L 96 04/25/22 00:00 42 L 04/24/22 22:00 56 L 04/24/22 20:00 57 L 04/24/22 20:00 97.5 F L 57 L 18 115/34 L 95 04/24/22 18:00 45 L 04/24/22 16:00 55 L 04/24/22 16:00 97.7 F 43 L 18 130/41 L 97 Intake/Output Intake/Output: Intake & Output 04/22/22 04/23/22 04/24/22 04/25/22 23:59 23:59 23:59 23:59 Intake Total 1914 1020 940 440 Output Total 3000 0 1999 Balance -1086 1020 -1060 440 Meds/Results Medications: Active Medications Generic Name Dose Route Start Last Admin Trade Name Freq PRN Reason Stop Dose Admin Atropine Sulfate 0.5 mg 04/21/22 18:20 Atropine Sulfate 1 Mg/10 Ml Syringe IV PUSH
--- NOTE | 2022-04-25 12:49 | P.PNNP_ITS ---
Progress Note: A&P Assessment and Plan (1) End stage renal disease: Code(s): N18.6 - End stage renal disease Status: Chronic Assessment and Plan: * HD tomorrow to continue M/W/F dialysis schedule * follow electrolytes, volume status, and clearance (2) Bacteremia: Code(s): R78.81 - Bacteremia Status: Acute Assessment and Plan: * one set of blood culture with Gram positive bacilli * real versus contamination?? * suspect the later since only in one set of cultures * s/p removal of HD catheter by Surgery yesterday (3) Altered mental status: Code(s): R41.82 - Altered mental status, unspecified Status: Acute Assessment and Plan: * improving * likely a combination of uremia and possibly hepatic encephalopathy * lactulose for elevated amonia * HD done for possible uremia * follow mentation (4) Cirrhosis: Code(s): K74.60 - Unspecified cirrhosis of liver Status: Chronic Assessment and Plan: * chronic issue * now complicated by a degree of hepatic encephalopathy * on lactulose * supportive therapy (5) Paroxysmal atrial fibrillation: Code(s): I48.0 - Paroxysmal atrial fibrillation Status: Acute Assessment and Plan: * rate control strategy * no longer on anticoagulation due to a bleeding in the past and fall risk (6) Hypertension: Code(s): I10 - Essential (primary) hypertension Status: Chronic Assessment and Plan: * reasonable control * follow trend of hemodynamics (7) Chronic diastolic congestive heart failure: Code(s): I50.32 - Chronic diastolic (congestive) heart failure Status: Acute Assessment and Plan: * evidence of mild pulmonary edema by CXR * makes some urine -- on bumex * further fluid removal with dialysis (8) Anemia: Code(s): D64.9 - Anemia, unspecified Status: Acute Assessment and Plan: * due to ESRD * Epogen with HD * guiac positive stools noted -- related to hemorrhoids(?) * GI recommendations noted * follow trend of H/H Will continue to follow - not opposed to discharge from renal perspective when otherwise medically stable. Subjective Date/time seen: 04/25/22 12:49 Tolerated hemodialysis treatment yesterday without any issues or problems aside from limited fluid removal due to relative hypotension; mentation continues to improve if not stabilize with current interventions; no apparent distress noted at this time. Exam Narrative: General: WD/WN male in NAD Heart: normal S1 and S2; no rub Lungs: clear anteriorly but decreased at bases Abdomen: soft, nontender, nondistended, positive bowel sounds Extremities: no cyanosis or clubbing; 1+ edema Skin: no rash Objective Data Vital Signs Vital Signs: Vital Signs Temp Pulse Resp BP Pulse Ox O2 Del Method 04/25/22 12:00 97.4 F L 48 L 18 134/44 L 97 04/25/22 12:00 49 L 04/25/22 10:00 52 L 04/25/22 10:16 Room Air 04/25/22 08:00 43 L 04/25/22 09:59 Room Air 04/25/22 08:00 96.8 F L 47 L 18 125/42 L 97 04/25/22 06:00 53 L 04/25/22 04:00 97.2 F L 56 L 18 126/43 L 98 04/25/22 04:00 47 L 04/25/22 02:00 53 L 04/25/22 00:00 97.3 F L 54 L 18 108
--- NOTE | 2022-04-25 14:18 | PM.IMPN ---
Progress Note: A&P Assessment and Plan (1) Encephalopathy: Code(s): G93.40 - Encephalopathy, unspecified Status: Acute Assessment and Plan: The patient was brought in via EMS from his assisted living facility for evaluation of altered mental status. He is encephalopathic and is alert and oriented x2 at the time my evaluation. He has no gross focal deficits noted on exam today though a brain CT would be prudent given his comorbidities and risk for stroke however that seems less likely. More over he is likely confused due to a combination metabolic encephalopathy from missed dialysis the last week and hyperammonemia. Nephrology has been consulted for dialysis orders.? He has no acute electrolyte abnormalities (sodium 125, potassium 5.1). He has been started on lactulose and ammonia will be repeated in the morning. Once again he has blood surrounding his stools which is not necessarily unusual for him and he has had multiple upper and lower endoscopies over the years. Hemoglobin/hematocrit have been stable and it does not seem as though he is actively hemorrhaging, likely his internal hemorrhoids are bleeding. Continue to monitor closely and transfuse if indicated. Blood pressures were stable. Random glucose today is 65, he has not been on medication for diabetes for quite some time. His coags are mildly prolonged, platelets are 98,000, and albumin is a bit low all pointing to his chronic cirrhosis. Continue to monitor volume status closely.? His home medications will be reviewed and resumed as appropriate. 04/25/2022: interval history:? patient with end-stage renal disease on hemodialysis patient had missed last 3 dialysis also history of liver cirrhosis and noncompliance with his medication lactulose upon arrival patient was quite somnolent his ammonia level was 72 and patient refused lactulose and on 04/20? morning his ammonia level was doubled to 135, gave patient lactulose eenema? and on 04/21? morning his ammonia level was down to 13, patient was more awake stated feeling much better denies any abdominal pain nausea or, vomiting,? apparently patient is not able to tolerate p.o. lactulose we may have to continue lactulose enema, patient had a hemodialysis on 04/20, his kidney function is improving,?today plan was to discharge however patient NH refused to take him back, nursing care partner is working on finding place for him, on 04/23 also his old dialysis catheter was removed as his permanent catheter is now matured and is being used Patient was seen by Cardiology and placed 30 day Holter monitor and will follow-up as outpatient, today patient work with physical therapy he participate and activity patient will benefit going to SNF rehab will continue to monitor. if remains clinically stable discharge patient tomorrow. (2) Hyperammonemia: Code(s): E72.20 - Disorder of urea cycle metabolism, unspecified Status: Acute (3) Rectal bleeding: Code(s): K62.5 - Hemorrhage of anus and rectum Status: Acute (4) Electrolyte abnormality: Code(s): E87.8 - Other disorders of electrolyte and fluid balance, not elsewhere classified Status: Acute (5) Chronic anemia: Code(s): D64.9 - Anemia, unspecified Status: Acute (6) End-stage renal disease on hemodialysis: Code(s): N18.6 - End stage renal disease; Z99.2 - Dependence on renal dialysis Status: Acute (7) Cirrhosis: Code(s): K74.60 - Unspecified cirrhosis of liver Status: Chronic Subjective Date/time seen: 04/25/22 14:18 04/25/2022: interval history:? patient with end-stage renal disease on hemodialysis patient had missed last 3 dialysis also history of liver cirrhosis and noncompliance with his medication lactulose upon arrival patient was quite somnolent his ammonia level was 72 and patient refused lactulose and on 04/20? morning his ammonia level was doubled to 135, gave patient lactulose eenema? and on 04/21? morning his ammonia level
--- NOTE | 2022-04-25 14:51 | PM.DS ---
DS: Summary Time Spent with Patient Time attestation: Total time spent providing and/or coordinating discharge services: DS: Data Data Completed and Pending Labs on day of discharge: Labs from last 24 hours 04/25/22 04/25/22 04/25/22 12:11 04:25 04:25 WBC RBC Hgb Hct MCV MCH MCHC RDW Plt Count MPV % Immature Plt Fraction Sodium 132 L Potassium 3.9 Chloride 101 Carbon Dioxide 30 Anion Gap 1 L BUN 9 D Creatinine 3.10 H Estim Creat Clear Calc 21 Estimated GFR 20 L Glucose 80 POC Capillary Glucose 140 H Calcium 8.4 Phosphorus 3.1 Magnesium 2.0 Ammonia 10 Albumin 2.6 L 04/25/22 04/24/22 04:25 16:37 WBC 7.4 RBC 2.65 L Hgb 8.5 L Hct 27.8 L MCV 104.9 H MCH 32.1 MCHC 30.6 L RDW 17.7 H Plt Count 128 L MPV 9.2 % Immature Plt Fraction 2.0 Sodium Potassium Chloride Carbon Dioxide Anion Gap BUN Creatinine Estim Creat Clear Calc Estimated GFR Glucose POC Capillary Glucose 133 H Calcium Phosphorus Magnesium Ammonia Albumin Discharge Plan Discharge Attending physician on discharge: Vicenta Patricia Consulting providers: Vitaliy Piper ; Elmer Sahu ; Peter Pollack ; Elsa Duong Discharging Clinician: Vicenta Patricia Patient Disposition: [place] Shelter/Asst Living Activity: as tolerated Diet: renal and low sodium Discharge Instructions: Patient to follow-up with his medical office specialist as scheduled for dialysis, patient to follow-up with his primary care provider andhepatologist as soon as possible, Patient Instructions: Antibiotic Form, Heart Failure (DC) Stand Alone Forms: General Discharge Information Follow-up/Referrals: Lida,Dolly Escalera MD [Primary Care Provider] - Peter Pollack DO [Physician] - Vitaliy Piper MD [Physician] - Discharge Medications: New lactulose 20 gram/30 mL Solution 20 g PO TID Qty: 500 0RF pantoprazole [Protonix] 40 mg tablet,delayed release (DR/EC) 40 mg PO QAM Qty: 30 0RF Xifaxan 550 mg Tablet 550 mg PO Q12HR Qty: 60 0RF Continued bumetanide 2 mg tablet 2 mg PO DAILY Label Comments: DAILY AT NOON Rx Instructions: at 1200 aspirin 81 mg tablet,delayed release (DR/EC) 81 mg PO DAILY atorvastatin 20 mg Tablet 20 mg PO DAILY Qty: 30 1RF Date of admission: 04/20/22 16:52 Primary Care Provider: Lida,Dolly Escalera Admitting Provider: Vicenta Patricia Attending physician on admission: Vicenta Patricia Condition: Stable
[2022-04-25 18:16] LABS: Glucose Point of Care 164 mg/dl (65-105)
[2022-04-26] VITALS (23 sets, daily range): BP systolic 96–158; BP diastolic 37–80; PULSE 40–97; RESP 16–18; TEMP 36.1–37; O2SAT 95–100
[2022-04-26 01:06] LABS: Glucose Point of Care 114 mg/dl (65-105)
[2022-04-26 04:41] LABS: Ammonia 31 umol/L (9-30)
[2022-04-26 05:03] LABS: Albumin Level 2.6 g/dL (3.5-5.1); Anion Gap 2 mmol/L (8-16); Blood Urea Nitrogen 14 mg/dL (9-20); Calcium 8.3 mg/dL (8.4-10.2); Carbon Dioxide 28 mmol/L (22-30); Chloride 99 mmol/L (98-107); Estimated CRCL calculation 17 ml/min; Estimated Glomerular Filt Rate 16; Glucose 98 mg/dL (65-110); Phosphorus 3.6 mg/dL (2.5-4.5); Potassium 4.3 mmol/L (3.4-5.0); Sodium 129 mmol/L (137-145)
[2022-04-26 05:07] LABS: Hematocrit 27.8 % (42.0-52.0); Hemoglobin 8.6 g/dL (14.0-18.0); Mean Corpuscular HGB Conc 30.9 g/dl (32-36); Mean Corpuscular Hemoglobin 31.5 pg (26-34); Mean Corpuscular Volume 101.8 fl (80-100); Mean Platelet Volume 9.5 fl (7.4-10.4); Platelet Count Result 101 k/mm3 (150-375); Red Blood Count 2.73 M/mm3 (4.6-6.20); Red Cell Distribution Width 17.5 % (11.5-14.5); White Blood Count 7.6 K/mm3 (4.5-10.0)
[2022-04-26] MEDS: rifAXIMin 550 MG TABLET PO (08:03)
[2022-04-26] MEDS: PANTOPRAZOLE SODIUM IV 40 MG VIAL IV PUSH (08:03)
[2022-04-26] MEDS: LACTULOSE 20 GM/30 ML UDC PO (08:03)
[2022-04-26] MEDS: EPOETIN ALFA-EPBX 20,000 UNITS/ML VIAL 20000 UNITS IV PUSH (11:21)
[2022-04-26] MEDS: ALBUMIN HUMAN 25% 12.5 GM/50ML 50 ML 999 GM (11:23)
[2022-04-26] MEDS: SODIUM CHLORIDE 0.9% IV 1,000 ML 999 ML IV CONT (11:24)
--- NOTE | 2022-04-26 11:55 | PM.DS ---
DS: Admitting Diagnosis Discharge Date 04/26/2022 Admitting Diagnosis Altered mental status. DS: Discharge Diagnosis Discharge Diagnosis (1) Encephalopathy: Code(s): G93.40 - Encephalopathy, unspecified Status: Acute (2) Hyperammonemia: Code(s): E72.20 - Disorder of urea cycle metabolism, unspecified Status: Acute (3) Rectal bleeding: Code(s): K62.5 - Hemorrhage of anus and rectum Status: Acute (4) Electrolyte abnormality: Code(s): E87.8 - Other disorders of electrolyte and fluid balance, not elsewhere classified Status: Acute (5) Chronic anemia: Code(s): D64.9 - Anemia, unspecified Status: Acute (6) End-stage renal disease on hemodialysis: Code(s): N18.6 - End stage renal disease; Z99.2 - Dependence on renal dialysis Status: Acute (7) Cirrhosis: Code(s): K74.60 - Unspecified cirrhosis of liver Status: Chronic DS: Summary Hospital Course Reason for hospitalization: Altered mental status. Narrative: This is a 71-year-old male with history of chronic anemia requiring multiple blood transfusions, occult GI bleeding with a history of multiple endoscopies including right-sided colonoscopy, coronary artery disease status post CABG in 2007, end-stage renal disease on hemodialysis since September 2019, paroxysmal atrial fibrillation status post left atrial appendage closure, diastolic congestive heart failure, pulmonary hypertension, COPD, obstructive sleep apnea, cirrhosis, and diet-controlled type 2 diabetes mellitus who presented to the emergency department via EMS from [facility] for evaluation of altered mental status. He is alert and oriented at the time of my evaluation and provides the following history. He does not really remember why he was sent to the hospital, however. According to the triage note he was in his usual state of health about 06:00 and he was post go to dialysis however ?he would not get up in time to go? and he missed today's treatment as well as two other treatments earlier this week. Nursing staff noted that he had some bright red blood in his undergarments as well. At the time my evaluation he has no complaints and specifically denies headache, fever, chills, sweats, cold and flu symptoms, chest pain, shortness a breath, nausea, vomiting, diarrhea, and dysuria (reports that he still urinates). Vital signs were stable on arrival. Hemoglobin and hematocrit have been stable when compared to baseline x2. The rest of his labs were significant for sodium of 125, potassium 5.4, BUN 62, creatinine 8.10, troponin 0.052, proBNP greater than 30,000, ammonia 72. Chest x-ray showed a small right pleural effusion with probable minimal pulmonary edema. He is being admitted in this setting for dialysis and trending of his hemoglobin and hematocrit. Hospital Course: ?patient with end-stage renal disease on hemodialysis patient had missed last 3 dialysis also history of liver cirrhosis and noncompliance with his medication lactulose upon arrival patient was quite somnolent his ammonia level was 72 and patient refused lactulose and on 04/20? morning his ammonia level was doubled to 135, gave patient lactulose eenema? and on 04/21? morning his ammonia level was down to 13, patient was more awake stated feeling much better denies any abdominal pain nausea or, vomiting,? apparently patient is not able to tolerate p.o. lactulose we may have to continue lactulose enema, patient had a hemodialysis on 04/20, his kidney function is improving,?today plan was to discharge however patient NH refused to take him back, healthcare receptionist is working on finding place for him, on 04/23? also his old dialysis catheter was removed as his permanent catheter is now matured and is being used? Patient was seen by Cardiology and placed 30 day Holter monitor and will follow-up as outpatient,? today patient work with physical therapy he participate and activity patient will benefit going to
--- NOTE | 2022-04-26 12:57 | P.PNNP_ITS ---
Progress Note: A&P Assessment and Plan (1) End stage renal disease: Code(s): N18.6 - End stage renal disease Status: Chronic Assessment and Plan: * HD today to continue M/W/F dialysis schedule * follow electrolytes, volume status, and clearance (2) Bacteremia: Code(s): R78.81 - Bacteremia Status: Acute Assessment and Plan: * likely contamination * s/p removal of HD catheter by Surgery during this hospital stay (3) Altered mental status: Code(s): R41.82 - Altered mental status, unspecified Status: Acute Assessment and Plan: * improving * likely a combination of uremia and possibly hepatic encephalopathy * lactulose for elevated amonia * HD done for possible uremia * follow mentation (4) Cirrhosis: Code(s): K74.60 - Unspecified cirrhosis of liver Status: Chronic Assessment and Plan: * chronic issue * now complicated by a degree of hepatic encephalopathy * on lactulose * supportive therapy (5) Paroxysmal atrial fibrillation: Code(s): I48.0 - Paroxysmal atrial fibrillation Status: Acute Assessment and Plan: * rate control strategy * no longer on anticoagulation due to a bleeding in the past and fall risk (6) Hypertension: Code(s): I10 - Essential (primary) hypertension Status: Chronic Assessment and Plan: * reasonable control * follow trend of hemodynamics (7) Chronic diastolic congestive heart failure: Code(s): I50.32 - Chronic diastolic (congestive) heart failure Status: Acute Assessment and Plan: * evidence of mild pulmonary edema by CXR * makes some urine -- on bumex * further fluid removal with dialysis (8) Anemia: Code(s): D64.9 - Anemia, unspecified Status: Acute Assessment and Plan: * due to ESRD * Epogen with HD * guiac positive stools noted -- related to hemorrhoids(?) * GI recommendations noted * follow trend of H/H Will continue to follow - not opposed to discharge from renal perspective when otherwise medically stable. Subjective Date/time seen: 04/26/22 12:57 Patient tolerating hemodialysis treatment at the time of my visit (seen on HD at 12:45PM); mentation remains stable at this time; no other acute issues/events overnight or earlier this AM; was tentatively scheduled for discharge yesterday but this was delayed by insurance issues. Exam Narrative: General: WD/WN male in NAD Heart: normal S1 and S2; no rub Lungs: clear anteriorly but decreased at bases Abdomen: soft, nontender, nondistended, positive bowel sounds Extremities: no cyanosis or clubbing; 1+ edema Skin: no rash Objective Data Vital Signs Vital Signs: Vital Signs Temp Pulse Resp BP Pulse Ox 04/26/22 12:20 47 L 118/48 L 04/26/22 12:00 47 L 127/53 L 04/26/22 11:40 47 L 122/55 L 04/26/22 11:20 47 L 123/80 04/26/22 11:07 97 98/45 L 04/26/22 11:00 44 L 96/37 L 04/26/22 10:40 44 L 134/53 L 04/26/22 12:00 47 L 04/26/22 12:40 47 L 112/47 L 04/26/22 10:36 44 L 133/58 L 04/26/22 10:26 97.1 F L 47 L 16 152/70 H 04/26/22 10:00 44 L 04/26/22 08:00 49 L 04/26/22 08:00 97 F L 49 L 16 123/43 L 96
--- NOTE | 2022-04-26 12:57 | PM.PNNEP ---
Progress Note: A&P Assessment and Plan (1) End stage renal disease: Code(s): N18.6 - End stage renal disease Status: Chronic Assessment and Plan: HD today to continue M/W/F dialysis schedule follow electrolytes, volume status, and clearance (2) Bacteremia: Code(s): R78.81 - Bacteremia Status: Acute Assessment and Plan: likely contamination s/p removal of HD catheter by Surgery during this hospital stay (3) Altered mental status: Code(s): R41.82 - Altered mental status, unspecified Status: Acute Assessment and Plan: improving likely a combination of uremia and possibly hepatic encephalopathy lactulose for elevated amonia HD done for possible uremia follow mentation (4) Cirrhosis: Code(s): K74.60 - Unspecified cirrhosis of liver Status: Chronic Assessment and Plan: chronic issue now complicated by a degree of hepatic encephalopathy on lactulose supportive therapy (5) Paroxysmal atrial fibrillation: Code(s): I48.0 - Paroxysmal atrial fibrillation Status: Acute Assessment and Plan: rate control strategy no longer on anticoagulation due to a bleeding in the past and fall risk (6) Hypertension: Code(s): I10 - Essential (primary) hypertension Status: Chronic Assessment and Plan: reasonable control follow trend of hemodynamics (7) Chronic diastolic congestive heart failure: Code(s): I50.32 - Chronic diastolic (congestive) heart failure Status: Acute Assessment and Plan: evidence of mild pulmonary edema by CXR makes some urine -- on bumex further fluid removal with dialysis (8) Anemia: Code(s): D64.9 - Anemia, unspecified Status: Acute Assessment and Plan: due to ESRD Epogen with HD guiac positive stools noted -- related to hemorrhoids(?) GI recommendations noted follow trend of H/H Will continue to follow - not opposed to discharge from renal perspective when otherwise medically stable. Subjective Date/time seen: 04/26/22 12:57 Patient tolerating hemodialysis treatment at the time of my visit (seen on HD at 12:45PM); mentation remains stable at this time; no other acute issues/events overnight or earlier this AM; was tentatively scheduled for discharge yesterday but this was delayed by insurance issues. Exam Narrative: General: WD/WN male in NAD Heart: normal S1 and S2; no rub Lungs: clear anteriorly but decreased at bases Abdomen: soft, nontender, nondistended, positive bowel sounds Extremities: no cyanosis or clubbing; 1+ edema Skin: no rash Objective Data Vital Signs Vital Signs: Vital Signs Temp Pulse Resp BP Pulse Ox 04/26/22 12:20 47 L 118/48 L 04/26/22 12:00 47 L 127/53 L 04/26/22 11:40 47 L 122/55 L 04/26/22 11:20 47 L 123/80 04/26/22 11:07 97 98/45 L 04/26/22 11:00 44 L 96/37 L 04/26/22 10:40 44 L 134/53 L 04/26/22 12:00 47 L 04/26/22 12:40 47 L 112/47 L 04/26/22 10:36 44 L 133/58 L 04/26/22 10:26 97.1 F L 47 L 16 152/70 H 04/26/22 10:00 44 L 04/26/22 08:00 49 L 04/26/22 08:00 97 F L 49 L 16 123/43 L 96 04/26/22 06:00 44 L 04/26/22 04:00 97 F L 46 L 16 145/49 H 95 04/26/22 04:00 40 L 04/26/22 02:00 42 L 04/26/22 00:00 44 L 04/26/22 00:00 97.1 F L 45 L 18 120/44 L 100 04/25/22 22:00 42 L 04/25/22 20:00 43 L 04/25/22 20:00 98.3 F 61 20 120/41 L 100 04/25/22 18:00 42 L 04/25/22 16:00 41 L 04/25/22 16:00 97.2 F L 48 L 22 H 123/41 L 91 Intake/Output Intake/Output: Intake & Output 04/23/22 04/24/22 04/25/22 04/26/22 23:59 23:59 23:59 23:59 Intake Total 5627 124 6167 730 Output Total 0 2000 0 Balance 1020 -1060 1520 730 Meds/Results Medications: Active Medications Generic Name Dose Route Start Last Admin
[2022-04-26 15:59] LABS: SARS-CoV-2 RNA PCR Negative
--- NOTE | 2022-04-26 17:15 | PC.NURSE ---
1645 report given to nursing facility. All questions answered at this time. Number given to nurse in case of questions. 1716 patient left floor via EMS.
== END 2022-04-26 17:11 | DRG 642 ==
LOC: ANHED 16:32 → ANHIMU 19:45
PROVIDERS: Internal Medicine Nephrology; Physician Assistant; Admitting Provider Family Medicine; Emergency Provider Emergency Medicine; PCP Family Medicine; Visit Provider Family Medicine
DX: E72.29 Other disorders of urea cycle metabolism (principal); G93.41 Metabolic encephalopathy; N18.6 End stage renal disease; I13.2 Hypertensive heart and chronic kidney disease with heart failure and with stage 5 chronic kidney disease, or end stage renal disease; I50.32 Chronic diastolic (congestive) heart failure; R78.81 Bacteremia; Z91.15 Patient's noncompliance with renal dialysis; K64.8 Other hemorrhoids; K76.82 Hepatic encephalopathy; K74.60 Unspecified cirrhosis of liver; Z20.822 Contact with and (suspected) exposure to COVID-19; N25.0 Renal osteodystrophy; E78.5 Hyperlipidemia, unspecified; J44.9 Chronic obstructive pulmonary disease, unspecified; G47.33 Obstructive sleep apnea (adult) (pediatric); E87.5 Hyperkalemia; I44.7 Left bundle-branch block, unspecified; I48.0 Paroxysmal atrial fibrillation; I73.9 Peripheral vascular disease, unspecified; D63.1 Anemia in chronic kidney disease; K21.9 Gastro-esophageal reflux disease without esophagitis; Z99.2 Dependence on renal dialysis; Z91.14 Patient's other noncompliance with medication regimen; Z87.891 Personal history of nicotine dependence; Z95.1 Presence of aortocoronary bypass graft; Z85.828 Personal history of other malignant neoplasm of skin; Z98.42 Cataract extraction status, left eye; Z98.41 Cataract extraction status, right eye; Z96.1 Presence of intraocular lens
CPT/HCPCS: 36415; 71045; 74018; 80053; 80069; 80074; 82140; 82274; 82948; 83605; 83735; 83880; 84484; 85014; 85018; 85025; 85027; 85055; 85610; 85730; 86706; 86850; 86900; 86901; 87040; 87076; 87340; 87636; 93005; 96374; 96375; 97110; 97161; 97165; 97530; 97535; 99285; A9270; C9113; G0257; G0378; J0461; J1644; J2405; J7030; J7050; P9047; Q5105; U0003; U0005

== ENCOUNTER 2022-07-02 16:41 | Emergency (ER) | payer MEDICARE, MEDICAID, SELFPAY ==
[2022-07-02] VITALS (21 sets, daily range): BP systolic 121–143; BP diastolic 55–87; PULSE 46–64; RESP 13–21; TEMP 36.4; O2SAT 92–100
--- NOTE | 2022-07-02 19:42 | ED.GENADULT ---
HPI - General Adult General Chief complaint: Extremity Problem,Nontraumatic Stated complaint: left ankle redness, swelling Time Seen by Provider: 07/02/22 19:20 History of Present Illness HPI narrative: 72-year-old male presents for evaluation of pain, redness and swelling in the left lower extremity Related Data Home Medications Medication Instructions Recorded Confirmed bumetanide 2 mg tablet 2 mg PO DAILY 09/06/19 06/13/22 aspirin 81 mg tablet,delayed 81 mg PO DAILY 03/15/22 06/13/22 release Allergies Allergy/AdvReac Type Severity Reaction Status Date / Time codeine Allergy Unknown RASH/BLISTE Verified 07/02/22 18:46 RS Review of Systems Review of Systems: 12 point review of systems is negative except as noted in the HPI. [facility] Past Medical History Medical History Chronic anemia Chronic diastolic congestive heart failure Echocardiogram in September 2019 showed normal left ventricular size and function with an ejection fraction estimated at 60 to 65% with abnormal diastolic function, moderate biatrial enlargement, mild aortic valve sclerosis, moderate aortic valve regurgitation, and trace mitral and tricuspid valve regurgitation. Chronic obstructive pulmonary disease Cirrhosis of liver with ascites Attributed to BURROWS however he has never had a liver biopsy. Coronary artery disease Status post 7 vessel CABG in 2007. No definite infarct or ischemia on nuclear stress test in September 2019. Diet-controlled type 2 diabetes mellitus End-stage renal disease on hemodialysis Erythropoietin deficiency anemia Gastroesophageal reflux disease GI bleed March 2014, November 2017, and more recently suspected occult GI loss in September 2019. Hyperlipidemia Hypertension Left bundle branch block Obstructive sleep apnea on CPAP The patient is supposed to use BiPAP but rarely uses it Paroxysmal atrial fibrillation not on long-term anticoagulation given history of GI bleed. Status post watchman left atrial appendage closure device insertion. Peripheral arterial disease Status post abdominal aortic aneurysm repair. Presence of Watchman left atrial appendage closure device Pulmonary hypertension Moderate pulmonary hypertension with an estimated pulmonary arterial systolic pressure of 50 mmHg on echocardiogram in September 2019. Renal osteodystrophy Ureterolithiasis (~09/2019) Surgical History Surgical History History of cataract extraction with lens replacement History of coronary artery bypass graft (~2007) 7 vessel bypass at [facility]. History of cystoscopy (~09/2019) With left ureteral stent and subsequent removal. History of penile implant History of squamous cell carcinoma excision (~11/2018) Excised from the left upper extremity. History of tonsillectomy History of ventral hernia repair (~09/2018) Family History Family History Mother Diabetes mellitus Acute myocardial infarction Father Family history of malignant neoplasm Family history of lung cancer Hypertension Sibling No problems noted. Son Diabetes mellitus Daughter Diabetes mellitus Social History Social History Social History: Surrogate decision maker: Thuan Lowry, kelly. Code status: Full code. (The patient initially stated that he would not want to be put on a ventilator at all. After further discussion he has decided that he would be okay with short-term use of a ventilator and a post resuscitation setting but he would not want long-term ventilator support or feeding tube.) The patient would not want to live in a vegetative state. Smoking packs per day: 0 Smoking cigarettes per day: 0.0 Years smoked: 20 Smoking pack-years: 0.00 Smoking status: Former smoker Tobac
[2022-07-02 20:29] LABS: Basophils Absolute Auto 0.1 K/mm3 (0.0-0.1); Basophils Percent Auto 0.7 % (0.2-1.2); Eosinophils Absolute Auto 0.3 K/mm3 (0-0.3); Eosinophils Percent Auto 2.6 % (0-4.4); Hematocrit 32.4 % (42.0-52.0); Hemoglobin 10.3 g/dL (14.0-18.0); Immature Granulocyte Absolute 0.07 K/mm3 (0.00-0.031); Immature Granulocyte Percent A 0.6 % (0-0.5); Immature Platelet Fraction Pct 2.3 % (0.9-11.2); Lymphocytes Absolute Auto 0.41 K/mm3 (0.9-3.2); Lymphocytes Percent Auto 3.4 % (18.3-44.2); Mean Corpuscular HGB Conc 31.8 g/dl (32-36); Mean Corpuscular Hemoglobin 31.2 pg (26-34); Mean Corpuscular Volume 98.2 fl (80-100); Mean Platelet Volume 9.7 fl (7.4-10.4); Monocytes Absolute Auto 1.7 K/mm3 (0.1-0.6); Monocytes Percent Auto 14.1 % (2.6-8.5); Neutrophils Absolute Auto 9.6 K/mm3 (1.3-6.7); Neutrophils Percent Auto 78.6 % (45.5-73.1); Platelet Count Result 127 k/mm3 (150-375); Red Cell Distribution Width 14.8 % (11.5-14.5); White Blood Count 12.1 K/mm3 (4.5-10.0)
[2022-07-02 20:38] LABS: Anion Gap 6 mmol/L (8-16); Blood Urea Nitrogen 32 mg/dL (9-20); Calcium 8.1 mg/dL (8.4-10.2); Carbon Dioxide 33 mmol/L (22-30); Chloride 92 mmol/L (98-107); Estimated CRCL calculation 20 ml/min; Estimated Glomerular Filt Rate 20; Glucose 117 mg/dL (65-110); Potassium 4.4 mmol/L (3.4-5.0); Sodium 131 mmol/L (137-145)
[2022-07-02 20:40] LABS: Ovalocytes 1+ (NORMAL); Platelet Estimate Decreased (Adequate); Schistocytes None Seen (NORMAL)
[2022-07-03] VITALS (30 sets, daily range): BP systolic 138–151; BP diastolic 54–66; PULSE 44–56; RESP 13–19; O2SAT 94–98
--- NOTE | 2022-07-03 06:49 | PC.NURSE ---
[facility] will not be here until 0700
--- NOTE | 2022-07-03 07:37 | PC.NURSE ---
This RN ordered a breakfast tray for pt at this time. Awaiting transport w/ aprox [phone] arrival.
--- NOTE | 2022-07-03 07:42 | PC.NURSE ---
This RN called [facility] in attempt to give report, spoke to Penny who transferred call to a nurse - no answer. Unsuccessful attempt.
== END 2022-07-03 09:49 ==
PROVIDERS: Emergency Provider Emergency Medicine; PCP Internal Medicine
DX: L03.116 Cellulitis of left lower limb (principal); L02.416 Cutaneous abscess of left lower limb; E11.22 Type 2 diabetes mellitus with diabetic chronic kidney disease; I13.2 Hypertensive heart and chronic kidney disease with heart failure and with stage 5 chronic kidney disease, or end stage renal disease; N18.6 End stage renal disease; I50.32 Chronic diastolic (congestive) heart failure; D63.1 Anemia in chronic kidney disease; N25.0 Renal osteodystrophy; I25.10 Atherosclerotic heart disease of native coronary artery without angina pectoris; J44.9 Chronic obstructive pulmonary disease, unspecified; E11.51 Type 2 diabetes mellitus with diabetic peripheral angiopathy without gangrene; I73.9 Peripheral vascular disease, unspecified; I48.0 Paroxysmal atrial fibrillation; E78.5 Hyperlipidemia, unspecified; K74.60 Unspecified cirrhosis of liver; G47.33 Obstructive sleep apnea (adult) (pediatric); R18.8 Other ascites; K21.9 Gastro-esophageal reflux disease without esophagitis; Z85.828 Personal history of other malignant neoplasm of skin; Z87.891 Personal history of nicotine dependence; Z99.2 Dependence on renal dialysis; Z98.49 Cataract extraction status, unspecified eye; Z95.1 Presence of aortocoronary bypass graft; Z96.1 Presence of intraocular lens; Z79.82 Long term (current) use of aspirin
CPT/HCPCS: 10060; 10160; 36415; 80048; 85025; 85055; 87040; 87070; 87147; 87181; 87186; 87205; 96365; 99284; J3370

== ENCOUNTER 2022-10-08 15:17 | Observation (INO) | payer MEDICARE, MEDICAID, SELFPAY ==
[2022-10-08] VITALS (23 sets, daily range): BP systolic 111–130; BP diastolic 45–58; PULSE 40–52; RESP 13–20; TEMP 36.4–36.6; O2SAT 91–100; BMI 24.5
--- NOTE | ~2022-10-08 | US_ITS ---
EXAMINATION:US venous doppler LE BI INDICATION:Lower extremity edema. TECHNIQUE: Multiple grayscale, color flow and Doppler images of the right and left lower extremity de ep venous systems were obtained and reviewed. COMPARISON:03/20/2022 FINDINGS: The common femoral, superficial femoral and popliteal veins demonstrate normal respiratory variation, augmentation and compressibility. Color flow is also seen within the posterior tibial, pe roneal, greater saphenous and profunda veins. IMPRESSION: 1: No lower extremity deep venous thrombosis. Reviewed, dictated and finalized at location A.
--- NOTE | ~2022-10-08 | XR_ITS ---
XR chest 1V portable 10/08/2022 16:07 Indication: Shortness of breath with cough Procedure: AP portable chest Comparison: Comparison to multiple prior studies sequentially, with oldest reviewed study dated 10/04. Findings: Status post median sternotomy for CABG. Moderate cardiomegaly. Moderate right pleural effus ion. Asymmetric right-sided airspace disease. No pneumothorax. No acute osseous abnormality. There ar e healed right rib fractures. Impression: 1: Asymmetric right-sided airspace disease may represent edema or pneumonia. 2: Moderate right pleural effusion. 3: Moderate cardiomegaly. Reviewed, dictated and finalized at location A. Impression: 1: Asymmetric right-sided airspace disease may represent edema or pneumonia. 2: Moderate right pleural effusion. 3: Moderate cardiomegaly.
[2022-10-08 15:54] LABS: Alveolar/Arterial O2 Gradient 69.8 mmHg; Base Excess ABG -0.6 mEq/l (+/-2.0); Carboxyhemoglobin 1.8 % THb (0-2.0); Fractional Inspired Oxygen 28 %; HCO3 ABG 26.3 mEq/l (22.0-26.0); Methemoglobin ABG 0.2 %THb (0-1.5); Oxygen Content ABG 14.4 %vol (16.0-22.0); Oxygen Saturation ABG 91.1 % (95.0-100.0); PCO2 ABG 53.7 mmHg (35.0-45.0); PO2 ABG 66.5 mmHg (80.0-100.0); PO2 FiO2 Ratio Arterial Blood 2.38 %; Total Hemoglobin 11.5 g/dL (12.0-18.0); pH ABG 7.308 (7.350-7.450)
[2022-10-08 15:55] LABS: Device NASAL CANNULA; Modified Allen's Test Pass; Site Drawn RIGHT BRACHIAL
--- NOTE | 2022-10-08 15:55 | ED.GENADULT ---
HPI - General Adult General Chief complaint: Altered Mental Status Stated complaint: AMS Time Seen by Provider: 10/08/22 15:23 History of Present Illness HPI narrative: 72-year-old male presented the emergency department for evaluation after being hypoxic at his group home. Patient does have history of CHF, COPD and is on peritoneal dialysis. Upon arrival to emergency department patient was on 4 L of oxygen by nasal cannula saturating 100%. Patient's oxygen was down to 2 L and patient is saturating at 97%. Patient's only complaint is a sore on his right buttock. Patient denies any other pain injury chest pain or shortness of breath. Patient does have prior history of doing hemodialysis but is currently on peritoneal dialysis. Related Data Home Medications Medication Instructions Recorded Confirmed bumetanide 2 mg tablet 2 mg PO DAILY 09/06/19 10/08/22 aspirin 81 mg tablet,delayed 81 mg PO DAILY 03/15/22 10/08/22 release acetaminophen 325 mg tablet 650 mg PO Q6H PRN Pain 10/08/22 10/08/22 (Tylenol) bisacodyl 10 mg rectal suppository 10 mg RECTAL DAILY PRN Constipation 10/08/22 10/08/22 lidocaine-prilocaine 2.5 %-2.5 % 1 applic topical 3XW 10/08/22 10/08/22 topical cream magnesium citrate (Citroma oral 300 ml PO DAILY PRN Constipation 10/08/22 10/08/22 solution) magnesium hydroxide 400 mg/5 mL 30 ml PO HS PRN Constipation 10/08/22 10/08/22 oral suspension (Milk of Magnesia) ondansetron 4 mg disintegrating 4 mg PO Q6H PRN Vomiting 10/08/22 10/08/22 tablet sodium phosphates 19 gram-7 118 ml RECTAL DAILY PRN 10/08/22 10/08/22 gram/118 mL enema (Fleet Enema) Constipation Allergies Allergy/AdvReac Type Severity Reaction Status Date / Time codeine Allergy Unknown RASH/BLISTE Verified 07/02/22 18:46 RS Review of Systems Review of Systems: All systems reviewed & are unremarkable except as noted in HPI and below PMFSH Past Medical History Medical History Chronic anemia Chronic diastolic congestive heart failure Echocardiogram in September 2019 showed normal left ventricular size and function with an ejection fraction estimated at 60 to 65% with abnormal diastolic function, moderate biatrial enlargement, mild aortic valve sclerosis, moderate aortic valve regurgitation, and trace mitral and tricuspid valve regurgitation. Chronic obstructive pulmonary disease Cirrhosis of liver with ascites Attributed to BURROWS however he has never had a liver biopsy. Coronary artery disease Status post 7 vessel CABG in 2007. No definite infarct or ischemia on nuclear stress test in September 2019. Diet-controlled type 2 diabetes mellitus End-stage renal disease on hemodialysis Erythropoietin deficiency anemia Gastroesophageal reflux disease GI bleed March 2014, November 2017, and more recently suspected occult GI loss in September 2019. Hyperlipidemia Hypertension Left bundle branch block Obstructive sleep apnea on CPAP The patient is supposed to use BiPAP but rarely uses it Paroxysmal atrial fibrillation not on long-term anticoagulation given history of GI bleed. Status post watchman left atrial appendage closure device insertion. Peripheral arterial disease Status post abdominal aortic aneurysm repair. Presence of Watchman left atrial appendage closure device Pulmonary hypertension Moderate pulmonary hypertension with an estimated pulmonary arterial systolic pressure of 50 mmHg on echocardiogram in September 2019. Renal osteodystrophy Ureterolithiasis (~09/2019) Surgical History Surgical History History of cataract extraction with lens replacement History of coronary artery bypass graft (~2007) 7 vessel bypass at [facility]. History of cystoscopy (~09/2019) With left ureteral stent and subsequent removal. History of penile implant History of squamous cell carcinoma excision (~11/2018) Exc
[2022-10-08 15:56] LABS: Basophils Percent Auto 0.3 % (0.2-1.2); Eosinophils Percent Auto 0.1 % (0-4.4); Hematocrit 34.7 % (42.0-52.0); Hemoglobin 10.6 g/dL (14.0-18.0); Immature Granulocyte Absolute 0.12 K/mm3 (0.00-0.031); Immature Granulocyte Percent A 1.4 % (0-0.5); Immature Platelet Fraction Pct 2.8 % (0.9-11.2); Lymphocytes Absolute Auto 0.26 K/mm3 (0.9-3.2); Lymphocytes Percent Auto 2.9 % (18.3-44.2); Mean Corpuscular HGB Conc 30.5 g/dl (32-36); Mean Corpuscular Hemoglobin 29.5 pg (26-34); Mean Corpuscular Volume 96.7 fl (80-100); Mean Platelet Volume 9.7 fl (7.4-10.4); Monocytes Absolute Auto 0.8 K/mm3 (0.1-0.6); Monocytes Percent Auto 8.8 % (2.6-8.5); Neutrophils Absolute Auto 7.6 K/mm3 (1.3-6.7); Neutrophils Percent Auto 86.5 % (45.5-73.1); Nucleated Red Blood Cells Absolute Auto 0.1 K/mm3 (0.0-0.012); Nucleated Red Blood Cells Perc 1.4 % (0.0-0.2); Platelet Count Result 91 k/mm3 (150-375); Red Blood Count 3.59 M/mm3 (4.6-6.20); Red Cell Distribution Width 19.4 % (11.5-14.5); White Blood Count 8.8 K/mm3 (4.5-10.0)
[2022-10-08 16:04] LABS: Alanine Aminotransferase 18 U/L (6-50); Albumin Level 3.1 g/dL (3.5-5.1); Alkaline Phosphatase 204 U/L (38-126); Anion Gap 12 mmol/L (8-16); Aspartate Amino Transferase 24 U/L (17-59); Bilirubin,Total 2.6 mg/dL (0.2-1.3); Blood Urea Nitrogen 36 mg/dL (9-20); Calcium 8.6 mg/dL (8.4-10.2); Carbon Dioxide 29 mmol/L (22-30); Chloride 94 mmol/L (98-107); Estimated CRCL calculation 22 ml/min; Estimated Glomerular Filt Rate 22; Glucose 83 mg/dL (65-110); Lactic Acid Reflex 1.7 mmol/L (0.7-2.0); Potassium 4.6 mmol/L (3.4-5.0); Sodium 135 mmol/L (137-145)
[2022-10-08 16:06] LABS: INR 1.5; Prothrombin Time 19.1 Seconds (11.1-14.7)
[2022-10-08 16:07] LABS: Partial Thromboplastin Time 42.7 SECONDS (22.3-36.8)
[2022-10-08] MEDS: ALBUTEROL SULFATE NEB 2.5 MG/3 ML INH INHALATION ×2 (16:50→20:15)
--- NOTE | 2022-10-08 16:54 | ECG_ITS ---
Measurements Intervals [place] Rate: 43 P: MS: 0 QRS: -75 QRSD: 124 T: 155 QT: 497 QTc: 425 Interpretive Statements ATRIAL FIBRILLATION WITH SLOW VENTRICULAR RESPONSE LEFT BUNDLE BRANCH BLOCK ANTEROSEPTAL INFARCT OR DUE TO LBBB INFERIOR INFARCT OR DUE TO LBBB BASELINE WANDER- I, III, AVR, V1-V6 ABNORMAL ECG COMPARED TO ECG 04/21/2022 17:27:17 NO SIGNIFICANT CHANGES Electronically Signed On 10-08-2022 20:03:20 CDT by Peter Pollack D.O.
[2022-10-08] MEDS: methylPREDNISolone SOD SUCC 125 MG VIAL 60 MG IV PUSH (17:29)
--- NOTE | 2022-10-08 17:51 | PC.NURSE ---
pt daughter, Cornelia at [phone], called for update
[2022-10-08] MEDS: AZITHROMYCIN 500 MG/NS 250 ML 500 MG/250 ML BAG 250 MG IVPB (18:06)
--- NOTE | 2022-10-08 18:22 | PC.NURSE ---
Addendum entered by Estella Black RN 10/08/22 19:38: Patient heart rate in the 40s. LILA Davidson notified. Will continue to monitor closely. Original Note: This patient, Naldo Lowry, was admitted to IMU Room 201-01. Patient/family oriented to hospital policies and general routines including ID bracelet, bed and alarms, visiting hours, pain management, procedures, bathroom and other care routines, personal items, smoking policy, room service/diet, and visiting hours. Information on how to activate the Rapid Response Team has been discussed. Patient/Family are encouraged to report perceived risks to care and to ask questions if they do not understand what they are told or what they should do.
[2022-10-08 20:31] LABS: Glucose Point of Care 98 mg/dl (65-105)
--- NOTE | 2022-10-08 23:09 | PM.IMHP ---
H&P: HPI History of Present Illness Date/Time: 10/08/22 20:00 Chief Complaint: Shortness of breath. Narrative: This is a 71-year-old male with coronary artery disease status post CABG in 2007, end-stage renal disease on hemodialysis since September 2021, paroxysmal atrial fibrillation status post left atrial appendage closure, diastolic congestive heart failure, pulmonary hypertension, chronic obstructive pulmonary disease, obstructive sleep apnea, cirrhosis, diet-controlled anemia, and chronic anemia with history of occult GI bleeding and multiple blood transfusions who presented to the emergency department via EMS from his nursing facility for evaluation of shortness of breath. The patient provides the following history. Last week he had a couple of days of nausea and vomiting but that has since resolved. The last several days he has developed a wet cough which has not been productive. He has felt increasingly short of breath since yesterday and he was found to be hypoxic on vital signs this afternoon. He denies fever, sinus congestion, sore throat, chest pain, pleuritic pain, lightheadedness, dizziness, recent nausea and vomiting, and diarrhea. He denies dysphagia and concerns for aspiration. At the time my evaluation he is on 2 L nasal cannula with an SpO2 in the mid 90s. He reports feeling better does not have any significant shortness of breath at this time. Chest x-ray done on arrival to the ED showed lactic right-sided airspace disease which may represent edema or pneumonia as well as a moderate right-sided pleural effusion. He has swelling of the lower extremities, right greater than left, but he states this is chronic. He has been empirically started on antibiotics for presumed pneumonia and he is being admitted in this setting for further treatment and close monitoring. He does not have any significant electrolyte abnormalities on labs. Review of Systems Review of Systems: Twelve systems were reviewed and are negative except for as per HPI. [facility]LY [facility] Past Medical History Medical History Chronic anemia Chronic diastolic congestive heart failure Echocardiogram in September 2019 showed normal left ventricular size and function with an ejection fraction estimated at 60 to 65% with abnormal diastolic function, moderate biatrial enlargement, mild aortic valve sclerosis, moderate aortic valve regurgitation, and trace mitral and tricuspid valve regurgitation. Chronic obstructive pulmonary disease Cirrhosis of liver with ascites Attributed to BURROWS however he has never had a liver biopsy. Coronary artery disease Status post 7 vessel CABG in 2007. No definite infarct or ischemia on nuclear stress test in September 2019. Diet-controlled type 2 diabetes mellitus End-stage renal disease on hemodialysis Erythropoietin deficiency anemia Gastroesophageal reflux disease GI bleed March 2014, November 2017, and more recently suspected occult GI loss in September 2019. Hyperlipidemia Hypertension Left bundle branch block Obstructive sleep apnea on CPAP The patient is supposed to use BiPAP but rarely uses it Paroxysmal atrial fibrillation not on long-term anticoagulation given history of GI bleed. Status post watchman left atrial appendage closure device insertion. Peripheral arterial disease Status post abdominal aortic aneurysm repair. Presence of Watchman left atrial appendage closure device Pulmonary hypertension Moderate pulmonary hypertension with an estimated pulmonary arterial systolic pressure of 50 mmHg on echocardiogram in September 2019. Renal osteodystrophy Ureterolithiasis (~09/2019) Surgical History Surgical History History of cataract extraction with lens replacement History of coronary artery bypass graft (~2007) 7 vessel bypass at [facility]. History of cystoscopy (~09/2019) With left ureteral stent and subsequent
[2022-10-09] VITALS (34 sets, daily range): BP systolic 85–120; BP diastolic 37–75; PULSE 41–86; RESP 12–18; TEMP 36.2–37; O2SAT 92–100
[2022-10-09] MEDS: ALBUTEROL SULFATE NEB 2.5 MG/3 ML INH INHALATION ×4 (02:10→20:20)
[2022-10-09] MEDS: IPRATROPIUM BR 0.02% INH SOLN 0.5 MG/2.5 ML VIAL INHALATION ×4 (02:10→20:19)
[2022-10-09 04:58] LABS: Hematocrit 34.7 % (42.0-52.0); Hemoglobin 10.6 g/dL (14.0-18.0); Immature Platelet Fraction Pct 3.1 % (0.9-11.2); Mean Corpuscular HGB Conc 30.5 g/dl (32-36); Mean Corpuscular Hemoglobin 29.3 pg (26-34); Mean Corpuscular Volume 95.9 fl (80-100); Mean Platelet Volume 9.6 fl (7.4-10.4); Platelet Count Result 90 k/mm3 (150-375); Red Blood Count 3.62 M/mm3 (4.6-6.20); Red Cell Distribution Width 19.3 % (11.5-14.5); White Blood Count 7.3 K/mm3 (4.5-10.0)
[2022-10-09 05:07] LABS: Alanine Aminotransferase 20 U/L (6-50); Albumin Level 3.1 g/dL (3.5-5.1); Alkaline Phosphatase 209 U/L (38-126); Anion Gap 12 mmol/L (8-16); Aspartate Amino Transferase 25 U/L (17-59); Bilirubin,Total 2.2 mg/dL (0.2-1.3); Blood Urea Nitrogen 40 mg/dL (9-20); Calcium 8.8 mg/dL (8.4-10.2); Carbon Dioxide 27 mmol/L (22-30); Chloride 94 mmol/L (98-107); Estimated CRCL calculation 20 ml/min; Estimated Glomerular Filt Rate 19; Glucose 117 mg/dL (65-110); Magnesium 1.8 mg/dL (1.6-2.3); Potassium 4.9 mmol/L (3.4-5.0); Sodium 133 mmol/L (137-145)
[2022-10-09 07:27] LABS: Free T4 Free Thyroxine Reflex 1.27 ng/dL (0.78-2.19)
[2022-10-09] MEDS: LIDOCAINE/PRILOCAINE CREAM 2.5-2.5% TUBE 1 EACH TOPICAL (08:30)
[2022-10-09 09:13] LABS: Total Triiodothyronine (T3) 0.49 NG/ML (0.97-1.69)
--- NOTE | 2022-10-09 09:23 | PM.IMPN ---
Progress Note: A&P Assessment and Plan (1) Hypoxia: Code(s): R09.02 - Hypoxemia Status: Acute Assessment and Plan: Improving, monitor (2) Chronic obstructive pulmonary disease: Code(s): J44.9 - Chronic obstructive pulmonary disease, unspecified Status: Acute Assessment and Plan: Prednisone daily to complete 5 day course (3) Pneumonia: Code(s): J18.9 - Pneumonia, unspecified organism Status: Acute Assessment and Plan: Rocephin and azithromycin started 10/08 (4) Obstructive sleep apnea on CPAP: Code(s): G47.33 - Obstructive sleep apnea (adult) (pediatric); Z99.89 - Dependence on other enabling machines and devices Status: Acute Assessment and Plan: CPAP as able (5) Bradycardia: Code(s): R00.1 - Bradycardia, unspecified Status: Acute Assessment and Plan: Monitor, stable, appears to be asymptomatic (6) Chronic diastolic congestive heart failure: Code(s): I50.32 - Chronic diastolic (congestive) heart failure Status: Acute Assessment and Plan: Appears to be relatively euvolemic, continue home diuretics (7) Cirrhosis of liver with ascites: Qualifiers: Hepatic cirrhosis type: unspecified hepatic cirrhosis Qualified Code(s): K74.60 - Unspecified cirrhosis of liver; R18.8 - Other ascites Code(s): K74.60 - Unspecified cirrhosis of liver; R18.8 - Other ascites Status: Chronic Assessment and Plan: Fluid removal per dialysis, monitor ascites (8) End-stage renal disease on hemodialysis: Code(s): N18.6 - End stage renal disease; Z99.2 - Dependence on renal dialysis Status: Chronic Assessment and Plan: Appreciate nephrology consultation Plan DVT prophylaxis with SCDs GI prophylaxis not indicated Code status full code Subjective Date/time seen: 10/09/22 09:23 Interval history: 71-year-old male with history of heart disease, hemodialysis, heart failure, AFib among other comorbidities is presenting with shortness of breath and being treated for possible pneumonia with COPD exacerbation and possible heart failure exacerbation. No overnight events noted. No chest pain or shortness of breath. No nausea, vomiting or diarrhea. No fevers or chills. Review of Systems Review of Systems: 12 point review of systems was assessed and was negative except as noted in the HPI Exam Narrative: General: No acute distress, alert and oriented per baseline HEENT: Atraumatic, normocephalic, mucous membranes moist CV: Regular rate and rhythm, S1, S2 Lungs: Clear to auscultation bilaterally, no rales or crackles noted, no wheezes, good air entry Abdomen: Soft, nontender, nondistended Extremities: Normal to inspection Skin: No rashes noted, no lesions or wounds seen Psych: Euthymic, normal affect Objective Data Vital Signs Vital Signs: Vital Signs - 24 hr 10/08/22 15:15 10/08/22 15:26 10/08/22 16:50 Temperature 97.9 F Pulse Rate 52 L 46 L Respiratory Rate 16 18 Blood Pressure 113/55 L Pulse Oximetry 100 100 Oxygen Delivery Nasal Cannula Nasal Cannula Oxygen Flow Rate 4 4 10/08/22 16:58 10/08/22 15:31 10/08/22 15:45 Temperature Pulse Rate 45 L 45 L 47 L Respiratory Rate 18 20 18 Blood Pressure 116/52 L Pulse Oximetry 100 96 Oxygen Delivery Oxygen Flow Rate 10/08/22 16:05 10/08/22 16:15 10/08/22 16:37 Temperature Pulse Rate 46 L 42 L 45 L Respiratory Rate 19 19 18 Blood Pressure Pulse Oximetry 93 Oxygen Delivery Oxygen Flow Rate 10/08/22 16:46 10/08/22 17:15 10/08/22 17:35 Temperature Pulse Rate 42 L 44 L 41 L Respiratory Rate 17 13 15 Blood Pressure Pulse Oximetry 94 94 96 Oxygen Delivery Oxygen Flow Rate 10/08/22 17:45 10/08/22 16:00 10/08/22 18:00 Temperature 97.8 F Pulse Rate 46 L 44 L 41 L Respiratory Rate 17 20 Blood Pre
[2022-10-09] MEDS: SODIUM CHLORIDE 0.9% IV 1,000 ML 999 ML IV CONT (10:34)
--- NOTE | 2022-10-09 11:00 | PM.CNNEP ---
Assessment and Plan Assessment and plan (1) End stage renal disease: Code(s): N18.6 - End stage renal disease Status: Chronic Assessment and Plan: HD today continue M/W/F dialysis schedule while hospitalized follow electrolytes, volume status, and clearance will see if Surgery here is willing to remove his PD catheter (since it is no longer needed) (2) Hypoxia: Code(s): R09.02 - Hypoxemia Status: Acute Assessment and Plan: suspect multifactorial: COPD exacerbation mild volume overload/CHF DIMITRIS on nebulizer treatments, steroids, and supplemental oxygen fluid removal with HD (limited due to relative hypotension) BiPAP with naps and at night follow respiratory status continue supportive therapy (3) COPD (chronic obstructive pulmonary disease): Code(s): J44.9 - Chronic obstructive pulmonary disease, unspecified Status: Acute Assessment and Plan: acute exacerbation see #2 (4) Chronic diastolic congestive heart failure: Code(s): I50.32 - Chronic diastolic (congestive) heart failure Status: Chronic Assessment and Plan: relatively compensated ongoing fluid removal with HD follow volume status (5) DIMITRIS (obstructive sleep apnea): Code(s): G47.33 - Obstructive sleep apnea (adult) (pediatric) Status: Chronic Assessment and Plan: known history questionable compliance with BiPAP see #2 (6) Anemia: Code(s): D64.9 - Anemia, unspecified Status: Chronic Assessment and Plan: due to ESRD Epogen with HD follow trend of H/H I will continue follow the patient with you while he remains hospitalized and make further recommendations as needed. Thank you for allowing me to participate in the care this patient. History of Present Illness Reason for Consult Consult date: 10/09/22 Reason for consult: end stage renal disease Chief Complaint Chief complaint: Pneumonia, COPD, Pulmonary edema, Hypoxia History of Present Illness Narrative: The patient is a 72-year-old male from extensive past medical history as outlined below presented to [facility] Emergency room from his nursing facility for further evaluation of hypoxia. Last week the patient had issues and problems with nausea and vomiting but that appears to have resolved without any specific intervention. More recently, in the last few days, he reports a congested cough but is not having any sputum production. However, with the a for mention cough, he has noticed more shortness of breath and it seemed to be somewhat worse on the day prior to admission. His nursing facility checked his vital signs and apparently he was noted to be somewhat hypoxic. He gave no other symptoms with regard to fever, sore throat, chest pain, lightheadedness, dizziness, or abdominal pain. Given the a for mention hypoxia, he was sent to the emergency room for further assessment. Workup and evaluation emergency room demonstrated the patient to be hemodynamically stable but he was hypoxic on room air. With the addition of 2 L of supplemental oxygen, his oxygen saturations improved to the mid 90s percentile range. With the application of oxygen, the patient reports that he feels somewhat better but still not back to baseline with regard to his breathing. Routine blood test demonstrated labs consistent with his known history of end-stage renal disease and anemia of chronic kidney disease. His chest x-ray demonstrated right sided airspace disease which may represent edema or pneumonia in association with a moderate right-sided pleural effusion. Given his laboratory findings, constellation of symptoms that led to his presentation, and chest x-ray findings, appropriate blood cultures were obtained and he was started on empiric antibiotic therapy for pneumonia and continued on supplemental oxygen. He was subsequently admitted to the hospital for further evaluation a
[2022-10-09] MEDS: EPOETIN ALFA 10,000 UNITS/ML VIAL 4000 UNITS IV PUSH (11:26)
[2022-10-09 12:20] LABS: Hepatitis B Surface Antigen Negative (Negative)
[2022-10-09 12:37] LABS: Hepatitis B Surface Anti Res Negative
[2022-10-09] MEDS: predniSONE 20 MG TABLET 40 MG PO (14:21)
[2022-10-09] MEDS: BUMETANIDE 1 MG TABLET 2 MG PO (14:22)
[2022-10-09] MEDS: ASPIRIN 81 MG ENTERIC TABLET PO (14:22)
[2022-10-09] MEDS: PANTOPRAZOLE 40 MG TABLET PO (14:22)
[2022-10-09] MEDS: ATORVASTATIN 20 MG TABLET PO (14:22)
--- NOTE | 2022-10-09 15:33 | PM.CNCAR ---
Assessment and Plan Assessment and plan (1) Atrial fibrillation: Code(s): I48.91 - Unspecified atrial fibrillation Status: Acute Assessment and Plan: Bradycardic. ?S/P Watchman device. On aspirin.? (2) Pneumonia: Code(s): J18.9 - Pneumonia, unspecified organism Status: Acute Assessment and Plan: On antibiotics as per hospitalist. (3) Bradycardia: Code(s): R00.1 - Bradycardia, unspecified Status: Acute Assessment and Plan: Stable. On event monitor HR rage 37-117 with average of 48 bpm. (4) Coronary artery 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: Code(s): I25.810 - Atherosclerosis of coronary artery bypass graft(s) without angina pectoris Status: Acute Assessment and Plan: Stable. On aspirin and Atorvastatin. (5) Diastolic dysfunction: Code(s): I51.89 - Other ill-defined heart diseases Status: Acute Assessment and Plan: On HD M/W/F. History of Present Illness History of Present Illness Consult date/time: 10/09/22 15:33 Reason For Visit: Pneumonia, COPD, Pulmonary edema, Hypoxia Narrative: 72 yr old man presents for a follow up visit regarding his cardiovascular status. He has a history of chronic diastolic heart failure, PAF s/p Watchman device, bradycardia, CKD, COPD, DIMITRIS, Anemia, CAD/CABG, ESRD on hemodialysis. He reported he was sob and was brought in to ER. Found to have pneumonia. His HR was running low 40's in atrial fibrillation. He is limited at walking 1/4 block with a cane from NEFF and COPD, but with his walker he can walk 1/2 mile.? He does have mod edema of legs.? Denies chest pain, sob, orthopnea, PND, dizziness, palpitations. Cardiovascular Procedures Strategic Manager:: CV Surgery ([facility]: 7 vessel CABG and ascending aortic aneurysm repair.) - 2007 Echo/MUGA:: 05/15/22 Echo: EF 60-65%, mild LVH, diastolic dysfunction (E/e' 26), RV mod hypokinesis with TAPSE 1.0 cm, mild RVE, mod biatrial enlargement, mild AI, mod MAC, trace MR, Aortic root 4.3 cm, RVSP 75 mmHg. Echo (EF 60%, diastolic dysfunction (E/E' 19), atrial fib, mild biatrial enlargement, trace MR/PI, mild-mod AI, mild TR, Aortic root 4.1 cm.) - 10/22/2017 Echo (EF 65%, mild LVH, diastolic dysfunction (E/E' 18), atrial fib, mod LAE, mild MADAN, small left to right shunt by color doppler s/o ASD/PFO, severe pulm hypertension, RVSP 72 mmHg, mild TR/PI, Ao root 4.5 cm.) - 12/10/2016 Echo (EF 67%, mild LVH, grade 2 diastolic dysfunction, mild biatrial enlargement, mild MR/AI/TR, severe pulm hypertension with RVSP 72 mmHg, Ascending aorta graft is normal, sinus of valsalva is dilated at 4.6 cm.) - 04/15/2016 Electrophysiology:: 04/23/22 5 days event monitor: Sinus rhythm, HR range 37-117 bpm; average 48 bpm; 37 bpm was on 04/25/22 at 20:18, 1% PAC's, 53 episodes of atrial fibrillation with burden of 15% and fastest at 117 bpm and longest lasting 2 hours and 9 minutes; 2% PVC's. 10/04/20 EKG: Atrial fibrillation at 78 bpm, PRWP, inferior infarct, age indeterminate, borderline ST-T wave abnormality in anterolat/high lat leads. Devices (Dr. Morris at [facility]: Implanted 30 mm Watchman device.) - 06/02/2018 EKG (Atrial fibrillation, low voltage, LAFB, borderline ST-T in lateral leads.) - 07/22/2016 Stress Tests:: Venous Duplex (No DVT of lower extremities bilaterally.) - 07/23/2016 Other (Had paracentesis with 5 liters dark reddish fluid removed.) - 05/18/2018 Other (Paracentesis: Removal of 5 liters of fluid.) - 12/09/2016 Abd/Pelvis CT (Anasarca, pleural effusions.) - 07/28/2016 Other (Paracentesis: Removal of 5 liters of fluid.) - 07/27/2016 Review of Systems Review of Systems: All systems reviewed & are unremarkable except as noted in HPI and below Constitutional: Constitutional: Reports as per HPI, Denies chills, Reports fatigue and Denies fever(s) Cardiovascular: Cardiovascular: Reports as per HPI, Denies chest pain, Denies irregular heart rhythm,
[2022-10-10] VITALS (21 sets, daily range): BP systolic 99–123; BP diastolic 44–51; PULSE 47–71; RESP 12–18; TEMP 36.3–36.6; O2SAT 93–100; BMI 24.7
[2022-10-10] MEDS: ALBUTEROL SULFATE NEB 2.5 MG/3 ML INH INHALATION ×4 (02:02→20:11)
[2022-10-10] MEDS: IPRATROPIUM BR 0.02% INH SOLN 0.5 MG/2.5 ML VIAL INHALATION ×4 (02:02→20:11)
[2022-10-10 05:20] LABS: Basophils Percent Auto 0.1 % (0.2-1.2); Hematocrit 31.9 % (42.0-52.0); Hemoglobin 9.8 g/dL (14.0-18.0); Immature Granulocyte Absolute 0.11 K/mm3 (0.00-0.031); Immature Granulocyte Percent A 1.4 % (0-0.5); Immature Platelet Fraction Pct 2.7 % (0.9-11.2); Lymphocytes Absolute Auto 0.22 K/mm3 (0.9-3.2); Lymphocytes Percent Auto 2.8 % (18.3-44.2); Mean Corpuscular HGB Conc 30.7 g/dl (32-36); Mean Corpuscular Hemoglobin 29.6 pg (26-34); Mean Corpuscular Volume 96.4 fl (80-100); Mean Platelet Volume 9.3 fl (7.4-10.4); Monocytes Absolute Auto 0.7 K/mm3 (0.1-0.6); Monocytes Percent Auto 8.8 % (2.6-8.5); Neutrophils Absolute Auto 6.7 K/mm3 (1.3-6.7); Neutrophils Percent Auto 86.9 % (45.5-73.1); Nucleated Red Blood Cells Absolute Auto 0.2 K/mm3 (0.0-0.012); Nucleated Red Blood Cells Perc 2.7 % (0.0-0.2); Platelet Count Result 98 k/mm3 (150-375); Red Blood Count 3.31 M/mm3 (4.6-6.20); Red Cell Distribution Width 20.2 % (11.5-14.5); White Blood Count 7.7 K/mm3 (4.5-10.0)
[2022-10-10 05:26] LABS: Alanine Aminotransferase 15 U/L (6-50); Albumin Level 2.8 g/dL (3.5-5.1); Alkaline Phosphatase 233 U/L (38-126); Anion Gap 11 mmol/L (8-16); Aspartate Amino Transferase 19 U/L (17-59); Bilirubin,Total 1.6 mg/dL (0.2-1.3); Blood Urea Nitrogen 30 mg/dL (9-20); Calcium 8.8 mg/dL (8.4-10.2); Carbon Dioxide 25 mmol/L (22-30); Chloride 99 mmol/L (98-107); Estimated CRCL calculation 26 ml/min; Estimated Glomerular Filt Rate 27; Glucose 179 mg/dL (65-110); Potassium 3.9 mmol/L (3.4-5.0); Sodium 135 mmol/L (137-145)
[2022-10-10 05:59] LABS: Anisocytosis 2+ (NORMAL); Ovalocytes 1+ (NORMAL); Platelet Estimate Decreased (Adequate); Schistocytes None Seen (NORMAL)
--- NOTE | 2022-10-10 08:21 | PM.PNCARD ---
Progress Note: A&P Assessment and Plan (1) Atrial fibrillation: Code(s): I48.91 - Unspecified atrial fibrillation Status: Acute Assessment and Plan: Bradycardic but stable. ?S/P Watchman device. On aspirin.? No further cardiac workup needed. Will sign off. (2) Pneumonia: Code(s): J18.9 - Pneumonia, unspecified organism Status: Acute Assessment and Plan: On antibiotics as per hospitalist. (3) Bradycardia: Code(s): R00.1 - Bradycardia, unspecified Status: Acute Assessment and Plan: Stable. On event monitor HR rage 37-117 with average of 48 bpm. (4) Coronary artery 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: Code(s): I25.810 - Atherosclerosis of coronary artery bypass graft(s) without angina pectoris Status: Acute Assessment and Plan: Stable. On aspirin and Atorvastatin. (5) Diastolic dysfunction: Code(s): I51.89 - Other ill-defined heart diseases Status: Acute Assessment and Plan: On HD M//. Subjective Date/time seen: 10/10/22 08:21 Interval history: Denies chest pain or sob or dizziness. Exam Const: General: cooperative, healthy appearing and comfortable Orientation/consciousness: oriented to person, oriented to place and oriented to time Resp: Auscultation: clear to auscultation bilaterally, no crackles, no rales, no rhonchi and no wheezes Cardio: Rate: bradycardic Rhythm: abnormal rhythm Heart sounds: no murmurs Peripheral pulses: dorsalis pedis present Neuro: General: oriented to person, oriented to place and oriented to time Extrem: Right lower extremity: no edema Left lower extremity: no edema Other: A few necrotic toes Objective Data Vital Signs Vital Signs: Vital Signs - 24 hr 10/09/22 08:30 10/09/22 08:30 10/09/22 08:40 Temperature 97.9 F Pulse Rate 54 L 54 L Respiratory Rate 16 Blood Pressure 109/56 L 109/52 L Pulse Oximetry Oxygen Delivery Oxygen Flow Rate 2 10/09/22 09:00 10/09/22 09:20 10/09/22 09:40 Temperature Pulse Rate 59 L 52 L 54 L Respiratory Rate Blood Pressure 108/51 L 97/50 L 108/53 L Pulse Oximetry Oxygen Delivery Oxygen Flow Rate 10/09/22 10:00 10/09/22 10:20 10/09/22 10:40 Temperature Pulse Rate 54 L 65 69 Respiratory Rate Blood Pressure 93/75 L 91/50 L 96/39 L Pulse Oximetry Oxygen Delivery Oxygen Flow Rate 10/09/22 10:00 10/09/22 11:00 10/09/22 11:20 Temperature Pulse Rate 51 L 64 51 L Respiratory Rate Blood Pressure 91/45 L 98/44 L Pulse Oximetry Oxygen Delivery Oxygen Flow Rate 10/09/22 11:40 10/09/22 12:28 10/09/22 12:00 Temperature 97.5 F L Pulse Rate 66 46 L 47 L Respiratory Rate 16 Blood Pressure 85/37 L 94/42 L 93/42 L Pulse Oximetry Oxygen Delivery Oxygen Flow Rate 10/09/22 12:00 10/09/22 12:00 10/09/22 12:00 Temperature 97.3 F L Pulse Rate 42 L 86 Respiratory Rate 14 Blood Pressure 101/48 L Pulse Oximetry 98 98 Oxygen Delivery Nasal Cannula Oxygen Flow Rate 2 10/09/22 13:30 10/09/22 13:46 10/09/22 14:00 Temperature Pulse Rate 41 L 48 L 43 L Respiratory Rate 16 16 Blood Pressure Pulse Oximetry Oxygen Delivery Oxygen Flow Rate 10/09/22 16:00 10/09/22 16:00 10/09/22 16:00 Temperature 97.2 F L Pulse Rate 44 L 58 L Respiratory Rate 14 Blood Pressure 112/45 L Pulse Oximetry 96 97 Oxygen Delivery Nasal Cannula Oxygen Flow Rate 2 10/09/22 18:00 10/09/22 20:00 10/09/22 20:20 Temperature 97.2 F L Pulse Rate 45 L 54 L 48 L Respiratory Rate 18 18 Blood Pressure 120/54 L Pulse Oximetry 100 Oxygen Delivery Oxygen Flow Rate 10/09/22 20:22 10/09/22 20:29 10/09/22 20:00 Temperature Pulse Rate 48 L 44 L 49 L Respiratory Rate 16 Blood Pressure Pulse Oximetry 95 Oxygen Delivery Nasal Cannula Oxygen Flow Rate 2
[2022-10-10] MEDS: SILVERGEL (ELTA) 45 ML 1 APPLIC TOPICAL (10:06)
[2022-10-10] MEDS: BUMETANIDE 1 MG TABLET 2 MG PO (10:59)
[2022-10-10] MEDS: ATORVASTATIN 20 MG TABLET PO (10:59)
[2022-10-10] MEDS: predniSONE 20 MG TABLET 40 MG PO (10:59)
[2022-10-10] MEDS: PANTOPRAZOLE 40 MG TABLET PO (10:59)
[2022-10-10] MEDS: ASPIRIN 81 MG ENTERIC TABLET PO (11:00)
--- NOTE | 2022-10-10 12:08 | P.PNNP_ITS ---
Progress Note: A&P Assessment and Plan (1) End stage renal disease: Code(s): N18.6 - End stage renal disease Status: Chronic Assessment and Plan: * HD tomorrow * continue M/W/F dialysis schedule while hospitalized * follow electrolytes, volume status, and clearance * will see if Surgery here is willing to remove his PD catheter (since it is no longer needed) (2) Hypoxia: Code(s): R09.02 - Hypoxemia Status: Acute Assessment and Plan: * improving * suspect multifactorial: * COPD exacerbation * mild volume overload/CHF * DIMITRIS * on nebulizer treatments, steroids, and supplemental oxygen * fluid removal with HD (limited due to relative hypotension) * BiPAP with naps and at night * follow respiratory status * wean off oxygen as tolerated * continue supportive therapy (3) COPD (chronic obstructive pulmonary disease): Code(s): J44.9 - Chronic obstructive pulmonary disease, unspecified Status: Acute Assessment and Plan: * acute exacerbation * see #2 (4) Chronic diastolic congestive heart failure: Code(s): I50.32 - Chronic diastolic (congestive) heart failure Status: Chronic Assessment and Plan: * relatively compensated * ongoing fluid removal with HD * follow volume status (5) DIMITRIS (obstructive sleep apnea): Code(s): G47.33 - Obstructive sleep apnea (adult) (pediatric) Status: Chronic Assessment and Plan: * known history * questionable compliance with BiPAP * see #2 (6) Anemia: Code(s): D64.9 - Anemia, unspecified Status: Chronic Assessment and Plan: * due to ESRD * Epogen with HD * follow trend of H/H Will continue to follow. Subjective Date/time seen: 10/10/22 12:08 Interval history: Follow-up for end stage renal disease on hemodialysis. Tolerated hemodialysis treatment yesterday without any issues or problems; respiratory status seems stable if not better; on/off oxygen since this morning; no apparent issues/events overnight or earlier this morning; no acute distress noted. Exam Narrative: General: somewhat ill-appearing male in NAD Heart: normal S1 and S2; no rub Lungs: clear anteriorly but decreased at bases Abdomen: soft, nontender, nondistended, positive bowel sounds Extremities: no cyanosis or clubbing; 1+ edema Skin: warm and dry Objective Data Vital Signs Vital Signs: Vital Signs Temp Pulse Resp BP Pulse Ox O2 Del Method O2 Flow Rate 07/27/23 12:00 97.5 F L 63 12 99/44 L 94 10/10/22 11:50 93 Nasal Cannula 1 10/10/22 10:00 52 L 10/10/22 08:00 52 L 10/10/22 09:13 93 Room Air 10/10/22 10:48 Room Air 10/10/22 09:13 55 L 18 10/10/22 09:00 52 L 18 10/10/22 08:00 98 F 62 12 111/49 L 99 10/10/22 06:00 55 L 10/10/22 04:00 97.9 F 56 L 16 110/44 L 97 10/10/22 04:00 55 L 10/10/22 04:00 95 Nasal Cannula 2 10/10/22 02:15 52 L 18 10/10/22 02:02 53 L 18 10/10/22 02:00 53 L 10/10/22 00:00 71 10/10/22 00:00 94 Nasal Cannula 2 10/09/22 23:58 97.7 F 51 L 16 106/41 L 94 10/09/22 20:00 95 Nasal Cannula 2
--- NOTE | 2022-10-10 12:08 | PM.PNNEP ---
Progress Note: A&P Assessment and Plan (1) End stage renal disease: Code(s): N18.6 - End stage renal disease Status: Chronic Assessment and Plan: HD tomorrow continue M/W/F dialysis schedule while hospitalized follow electrolytes, volume status, and clearance will see if Surgery here is willing to remove his PD catheter (since it is no longer needed) (2) Hypoxia: Code(s): R09.02 - Hypoxemia Status: Acute Assessment and Plan: improving suspect multifactorial: COPD exacerbation mild volume overload/CHF DIMITRIS on nebulizer treatments, steroids, and supplemental oxygen fluid removal with HD (limited due to relative hypotension) BiPAP with naps and at night follow respiratory status wean off oxygen as tolerated continue supportive therapy (3) COPD (chronic obstructive pulmonary disease): Code(s): J44.9 - Chronic obstructive pulmonary disease, unspecified Status: Acute Assessment and Plan: acute exacerbation see #2 (4) Chronic diastolic congestive heart failure: Code(s): I50.32 - Chronic diastolic (congestive) heart failure Status: Chronic Assessment and Plan: relatively compensated ongoing fluid removal with HD follow volume status (5) DIMITRIS (obstructive sleep apnea): Code(s): G47.33 - Obstructive sleep apnea (adult) (pediatric) Status: Chronic Assessment and Plan: known history questionable compliance with BiPAP see #2 (6) Anemia: Code(s): D64.9 - Anemia, unspecified Status: Chronic Assessment and Plan: due to ESRD Epogen with HD follow trend of H/H Will continue to follow. Subjective Date/time seen: 10/10/22 12:08 Interval history: Follow-up for end stage renal disease on hemodialysis. Tolerated hemodialysis treatment yesterday without any issues or problems; respiratory status seems stable if not better; on/off oxygen since this morning; no apparent issues/events overnight or earlier this morning; no acute distress noted. Exam Narrative: General: somewhat ill-appearing male in NAD Heart: normal S1 and S2; no rub Lungs: clear anteriorly but decreased at bases Abdomen: soft, nontender, nondistended, positive bowel sounds Extremities: no cyanosis or clubbing; 1+ edema Skin: warm and dry Objective Data Vital Signs Vital Signs: Vital Signs Temp Pulse Resp BP Pulse Ox O2 Del Method O2 Flow Rate 10/10/22 12:00 97.5 F L 63 12 99/44 L 94 10/10/22 11:50 93 Nasal Cannula 1 10/10/22 10:00 52 L 10/10/22 08:00 52 L 10/10/22 09:13 93 Room Air 10/10/22 10:48 Room Air 10/10/22 09:13 55 L 18 10/10/22 09:00 52 L 18 10/10/22 08:00 98 F 62 12 111/49 L 99 10/10/22 06:00 55 L 10/10/22 04:00 97.9 F 56 L 16 110/44 L 97 10/10/22 04:00 55 L 10/10/22 04:00 95 Nasal Cannula 2 10/10/22 02:15 52 L 18 10/10/22 02:02 53 L 18 10/10/22 02:00 53 L 10/10/22 00:00 71 10/10/22 00:00 94 Nasal Cannula 2 10/09/22 23:58 97.7 F 51 L 16 106/41 L 94 10/09/22 20:00 95 Nasal Cannula 2 10/09/22 22:00 44 L 10/09/22 20:00 49 L 10/09/22 20:29 44 L 16 10/09/22 20:22 48 L 95 Nasal Cannula 2 10/09/22 20:20 48 L 18 10/09/22 20:00 97.2 F L 54 L 18 120/54 L 100 10/09/22 18:00 45 L 10/09/22 16:00 97.2 F L 58 L 14 112/45 L 97 10/09/22 16:00 44 L 10/09/22 16:00 96 Nasal Cannula 2 10/09/22 14:00 43 L 10/09/22 13:46 48 L 16 Intake/Output Intake/Output: Intake & Output 10/07/22 10/08/22 10/09/22 10/10/22 23:59 23:59 23:59 23:59 Intake Total 50 4050 800 Output Total 1691 Balance 50 2359 800 Meds/Results Medications: Active Medications Generic Name Dose Route Start Last Admin Trade Name Freq PRN Reason St
--- NOTE | 2022-10-10 14:13 | PCPTNOTE ---
On 10/10/22, the student, JOHAN Salazar, provided care and completed [facility] documentation on this patient. I have reviewed the student's documentation and agree with the findings.
--- NOTE | 2022-10-10 14:20 | PCOTNOTE ---
Attempted to see pt. for occupation therapy evaluation. Pt. stated he is beat and would prefer to rest and participate tomorrow instead. Nursing aware. Following.
--- NOTE | 2022-10-10 16:32 | PM.IMPN ---
Progress Note: A&P Assessment and Plan (1) Hypoxia: Code(s): R09.02 - Hypoxemia Status: Acute Assessment and Plan: Resolved, anticipate discharge tomorrow (2) Chronic obstructive pulmonary disease: Code(s): J44.9 - Chronic obstructive pulmonary disease, unspecified Status: Acute Assessment and Plan: Prednisone daily to complete 5 day course (3) Pneumonia: Code(s): J18.9 - Pneumonia, unspecified organism Status: Acute Assessment and Plan: Rocephin and azithromycin started 10/08 (4) Obstructive sleep apnea on CPAP: Code(s): G47.33 - Obstructive sleep apnea (adult) (pediatric); Z99.89 - Dependence on other enabling machines and devices Status: Acute Assessment and Plan: CPAP as able (5) Bradycardia: Code(s): R00.1 - Bradycardia, unspecified Status: Acute Assessment and Plan: Monitor, stable, appears to be asymptomatic (6) Chronic diastolic congestive heart failure: Code(s): I50.32 - Chronic diastolic (congestive) heart failure Status: Chronic Assessment and Plan: Appears to be relatively euvolemic, continue home diuretics (7) Cirrhosis of liver with ascites: Qualifiers: Hepatic cirrhosis type: unspecified hepatic cirrhosis Qualified Code(s): K74.60 - Unspecified cirrhosis of liver; R18.8 - Other ascites Code(s): K74.60 - Unspecified cirrhosis of liver; R18.8 - Other ascites Status: Chronic Assessment and Plan: Fluid removal per dialysis, monitor ascites (8) End-stage renal disease on hemodialysis: Code(s): N18.6 - End stage renal disease; Z99.2 - Dependence on renal dialysis Status: Chronic Assessment and Plan: Appreciate nephrology consultation Plan DVT prophylaxis with SCDs GI prophylaxis not indicated Code status full code Subjective Date/time seen: 10/10/22 16:32 Interval history: 71-year-old male with history of heart disease, hemodialysis, heart failure, AFib among other comorbidities is presenting with shortness of breath and being treated for possible pneumonia with COPD exacerbation and possible heart failure exacerbation. No overnight events noted. No chest pain or shortness of breath. No nausea, vomiting or diarrhea. No fevers or chills. Weaned to room air today. Feels much better than yesterday. Eager to go home. Exam Narrative: General: No acute distress, alert and oriented per baseline HEENT: Atraumatic, normocephalic, mucous membranes moist CV: Regular rate and rhythm, S1, S2 Lungs: Clear to auscultation bilaterally, no rales or crackles noted, no wheezes, good air entry Abdomen: Soft, nontender, nondistended Extremities: Normal to inspection Skin: No rashes noted, no lesions or wounds seen Psych: Euthymic, normal affect Objective Data Vital Signs Vital Signs: Vital Signs - 24 hr 10/09/22 18:00 10/09/22 20:00 10/09/22 20:20 Temperature 97.2 F L Pulse Rate 45 L 54 L 48 L Respiratory Rate 18 18 Blood Pressure 120/54 L Pulse Oximetry 100 Oxygen Delivery Oxygen Flow Rate 10/09/22 20:22 10/09/22 20:29 10/09/22 20:00 Temperature Pulse Rate 48 L 44 L 49 L Respiratory Rate 16 Blood Pressure Pulse Oximetry 95 Oxygen Delivery Nasal Cannula Oxygen Flow Rate 2 10/09/22 22:00 10/09/22 20:00 10/09/22 23:58 Temperature 97.7 F Pulse Rate 44 L 51 L Respiratory Rate 16 Blood Pressure 106/41 L Pulse Oximetry 95 94 Oxygen Delivery Nasal Cannula Oxygen Flow Rate 2 10/10/22 00:00 10/10/22 00:00 10/10/22 02:00 Temperature Pulse Rate 71 53 L Respiratory Rate Blood Pressure Pulse Oximetry 94 Oxygen Delivery Nasal Cannula Oxygen Flow Rate 2 10/10/22 02:02 10/10/22 02:15 10/10/22 04:00 Temperature Pulse Rate 53 L 52 L Respiratory Rate 18 18 Blood Pressure Pulse Oximetry 95 Oxygen Delive
[2022-10-11] VITALS (35 sets, daily range): BP systolic 98–163; BP diastolic 38–127; PULSE 45–113; RESP 16–20; TEMP 35.5–37.1; O2SAT 91–97
--- NOTE | 2022-10-11 02:22 | PCRCNOTE ---
Pt refused neb at this time
[2022-10-11 05:40] LABS: Basophils Percent Auto 0.1 % (0.2-1.2); Hematocrit 31.8 % (42.0-52.0); Hemoglobin 9.9 g/dL (14.0-18.0); Immature Granulocyte Absolute 0.11 K/mm3 (0.00-0.031); Immature Granulocyte Percent A 1.5 % (0-0.5); Immature Platelet Fraction Pct 2.5 % (0.9-11.2); Lymphocytes Absolute Auto 0.16 K/mm3 (0.9-3.2); Lymphocytes Percent Auto 2.2 % (18.3-44.2); Mean Corpuscular HGB Conc 31.1 g/dl (32-36); Mean Corpuscular Hemoglobin 29.9 pg (26-34); Mean Corpuscular Volume 96.1 fl (80-100); Mean Platelet Volume 9.3 fl (7.4-10.4); Monocytes Absolute Auto 0.6 K/mm3 (0.1-0.6); Monocytes Percent Auto 7.9 % (2.6-8.5); Neutrophils Absolute Auto 6.5 K/mm3 (1.3-6.7); Neutrophils Percent Auto 88.3 % (45.5-73.1); Nucleated Red Blood Cells Absolute Auto 0.1 K/mm3 (0.0-0.012); Nucleated Red Blood Cells Perc 1.4 % (0.0-0.2); Platelet Count Result 95 k/mm3 (150-375); Red Blood Count 3.31 M/mm3 (4.6-6.20); Red Cell Distribution Width 20.4 % (11.5-14.5); White Blood Count 7.4 K/mm3 (4.5-10.0)
[2022-10-11 05:53] LABS: Alanine Aminotransferase 15 U/L (6-50); Albumin Level 2.9 g/dL (3.5-5.1); Alkaline Phosphatase 224 U/L (38-126); Anion Gap 12 mmol/L (8-16); Aspartate Amino Transferase 18 U/L (17-59); Bilirubin,Total 1.4 mg/dL (0.2-1.3); Blood Urea Nitrogen 36 mg/dL (9-20); Calcium 8.9 mg/dL (8.4-10.2); Carbon Dioxide 25 mmol/L (22-30); Chloride 97 mmol/L (98-107); Estimated CRCL calculation 20 ml/min; Estimated Glomerular Filt Rate 19; Glucose 157 mg/dL (65-110); Potassium 4.1 mmol/L (3.4-5.0); Sodium 134 mmol/L (137-145)
[2022-10-11] MEDS: IPRATROPIUM BR 0.02% INH SOLN 0.5 MG/2.5 ML VIAL INHALATION ×3 (07:00→23:19)
[2022-10-11] MEDS: ALBUTEROL SULFATE NEB 2.5 MG/3 ML INH INHALATION ×3 (07:00→23:20)
[2022-10-11 07:04] LABS: Anisocytosis 1+ (NORMAL); Basophilic Stippling 1+ (NORMAL); Hypochromasia 1+ (NORMAL); Macrocytosis 1+ (NORMAL); Poikilocytosis 1+ (NORMAL); Schistocytes None Seen (NORMAL)
--- NOTE | 2022-10-11 10:21 | PM.CNGS ---
Assessment and Plan Assessment and plan (1) End-stage renal disease on hemodialysis: Code(s): N18.6 - End stage renal disease; Z99.2 - Dependence on renal dialysis Status: Acute Assessment and Plan: Continue hemodialysis through AV fistula, would ask PD catheter to be removed by original surgeon that placed id given complicated placement to begin with, patient has no signs of peritonitis or any other issues with the peritoneal dialysis catheter at this time and can be discharged to have removal as outpatient History of Present Illness Consult details Consult date: 10/11/22 Narrative: The patient is a 72-year-old male with end-stage renal disease currently receiving hemodialysis through a left upper extremity AV fistula. Apparently, the patient had a peritoneal dialysis catheter placed approximately 7 months ago, however he was only able to use it for short period of time. The patient reports that he was really unable to find success with peritoneal dialysis given his physical decline, living situation, etc.. The patient also reports that he did have multiple bouts of peritonitis with the peritoneal dialysis catheter while it was in use. Currently the patient has been admitted for shortness of breath which has now resolved. The patient would like his peritoneal dialysis catheter removed since it is not being used and there are no plans to continue usage in the future. Of note, the patient reports that it was a very complicated procedure to place the peritoneal dialysis catheter. The procedure took 5 hours. Review of Systems Review of Systems: All systems reviewed & are unremarkable except as noted in HPI and below PMFSH Past Medical History Medical History Chronic anemia Chronic diastolic congestive heart failure Echocardiogram in September 2019 showed normal left ventricular size and function with an ejection fraction estimated at 60 to 65% with abnormal diastolic function, moderate biatrial enlargement, mild aortic valve sclerosis, moderate aortic valve regurgitation, and trace mitral and tricuspid valve regurgitation. Chronic obstructive pulmonary disease Cirrhosis of liver with ascites Attributed to BURROWS however he has never had a liver biopsy. Coronary artery disease Status post 7 vessel CABG in 2007. No definite infarct or ischemia on nuclear stress test in September 2019. Diet-controlled type 2 diabetes mellitus End-stage renal disease on hemodialysis Erythropoietin deficiency anemia Gastroesophageal reflux disease GI bleed March 2014, November 2017, and more recently suspected occult GI loss in September 2019. Hyperlipidemia Hypertension Left bundle branch block Obstructive sleep apnea on CPAP The patient is supposed to use BiPAP but rarely uses it Paroxysmal atrial fibrillation not on long-term anticoagulation given history of GI bleed. Status post watchman left atrial appendage closure device insertion. Peripheral arterial disease Status post abdominal aortic aneurysm repair. Presence of Watchman left atrial appendage closure device Pulmonary hypertension Moderate pulmonary hypertension with an estimated pulmonary arterial systolic pressure of 50 mmHg on echocardiogram in September 2019. Renal osteodystrophy Ureterolithiasis (~09/2019) Surgical History Surgical History History of cataract extraction with lens replacement History of coronary artery bypass graft (~2007) 7 vessel bypass at [facility]. History of cystoscopy (~09/2019) With left ureteral stent and subsequent removal. History of penile implant History of squamous cell carcinoma excision (~11/2018) Excised from the left upper extremity. History of tonsillectomy History of ventral hernia repair (~09/2018) Family History Family History Mother Diabetes mellitus Acute myocar
--- NOTE | 2022-10-11 10:28 | PC.NURSE ---
Pt has not voided in 2 days. Currently a hemodialysis pt. Reports he voids daily usually but has had intermittent confusion since admission. Bladder scan shows 370. Dr. Merrill aware. New orders noted for straight cath now and bladder scan again in 5 hours.
[2022-10-11] MEDS: PANTOPRAZOLE 40 MG TABLET PO (10:32)
[2022-10-11] MEDS: ATORVASTATIN 20 MG TABLET PO (10:32)
[2022-10-11] MEDS: SILVERGEL (ELTA) 45 ML 1 APPLIC TOPICAL (10:32)
[2022-10-11] MEDS: predniSONE 20 MG TABLET 40 MG PO (10:32)
[2022-10-11] MEDS: ASPIRIN 81 MG ENTERIC TABLET PO (10:32)
[2022-10-11] MEDS: BUMETANIDE 1 MG TABLET 2 MG PO (10:32)
[2022-10-11 12:00] LABS: Ammonia 20 umol/L (9-30)
--- NOTE | 2022-10-11 13:10 | PM.IMPN ---
Progress Note: A&P Assessment and Plan (1) Hypoxia: Code(s): R09.02 - Hypoxemia Status: Acute Assessment and Plan: Resolved, now with some altered mental status, unsure etiology, check ammonia, ABG (2) Chronic obstructive pulmonary disease: Code(s): J44.9 - Chronic obstructive pulmonary disease, unspecified Status: Acute Assessment and Plan: Prednisone daily to complete 5 day course (3) Pneumonia: Code(s): J18.9 - Pneumonia, unspecified organism Status: Acute Assessment and Plan: Rocephin and azithromycin started 10/08 (4) Obstructive sleep apnea on CPAP: Code(s): G47.33 - Obstructive sleep apnea (adult) (pediatric); Z99.89 - Dependence on other enabling machines and devices Status: Acute Assessment and Plan: CPAP as able (5) Bradycardia: Code(s): R00.1 - Bradycardia, unspecified Status: Acute Assessment and Plan: Monitor, stable, appears to be asymptomatic (6) Chronic diastolic congestive heart failure: Code(s): I50.32 - Chronic diastolic (congestive) heart failure Status: Chronic Assessment and Plan: Appears to be relatively euvolemic, continue home diuretics (7) Cirrhosis of liver with ascites: Qualifiers: Hepatic cirrhosis type: unspecified hepatic cirrhosis Qualified Code(s): K74.60 - Unspecified cirrhosis of liver; R18.8 - Other ascites Code(s): K74.60 - Unspecified cirrhosis of liver; R18.8 - Other ascites Status: Chronic Assessment and Plan: Fluid removal per dialysis, monitor ascites (8) End-stage renal disease on hemodialysis: Code(s): N18.6 - End stage renal disease; Z99.2 - Dependence on renal dialysis Status: Chronic Assessment and Plan: Appreciate nephrology consultation Plan DVT prophylaxis with SCDs GI prophylaxis not indicated Code status full code Subjective Date/time seen: 10/11/22 13:10 Interval history: 71-year-old male with history of heart disease, hemodialysis, heart failure, AFib among other comorbidities is presenting with shortness of breath and being treated for possible pneumonia with COPD exacerbation and possible heart failure exacerbation. No overnight events noted. No chest pain or shortness of breath. No nausea, vomiting or diarrhea. No fevers or chills. noted some occasional bizarre behavior, none noted while nurse or staff in room. Review of Systems Review of Systems: 12 point review of systems was assessed and was negative except as noted in the HPI Exam Narrative: General: No acute distress, alert and oriented per baseline HEENT: Atraumatic, normocephalic, mucous membranes moist CV: Regular rate and rhythm, S1, S2 Lungs: Clear to auscultation bilaterally, no rales or crackles noted, no wheezes, good air entry Abdomen: Soft, nontender, nondistended Extremities: Normal to inspection Skin: No rashes noted, no lesions or wounds seen Psych: Euthymic, normal affect Objective Data Vital Signs Vital Signs: Vital Signs - 24 hr 10/10/22 15:20 10/10/22 15:47 10/10/22 16:00 Temperature 97.7 F Pulse Rate 47 L 51 L 52 L Respiratory Rate 18 18 12 Blood Pressure 123/51 L Pulse Oximetry 98 Oxygen Delivery Oxygen Flow Rate 10/10/22 14:00 10/10/22 16:00 10/10/22 16:00 Temperature Pulse Rate 57 L 53 L Respiratory Rate Blood Pressure Pulse Oximetry 98 Oxygen Delivery Nasal Cannula Oxygen Flow Rate 1 10/10/22 18:00 10/10/22 20:13 10/10/22 20:13 Temperature Pulse Rate 55 L 54 L Respiratory Rate 18 Blood Pressure Pulse Oximetry 93 Oxygen Delivery Nasal Cannula Oxygen Flow Rate 1 10/10/22 20:00 10/10/22 20:00 10/10/22 20:00 Temperature 97.3 F L Pulse Rate 51 L 55 L Respiratory Rate 16 Blood Pressure 116/48 L Pulse Oximetry 98 98 Oxygen Delivery Nasal Cannula Oxygen Flow
--- NOTE | 2022-10-11 13:17 | PCOTNOTE ---
Attempted OT eval for the second time at 13:17, patient refused. Patient states I don't need therapy. Will follow.
[2022-10-11] MEDS: LIDOCAINE/PRILOCAINE CREAM 2.5-2.5% TUBE 1 EACH TOPICAL (14:04)
--- NOTE | 2022-10-11 15:23 | PC.NURSE ---
Bladder scan shows [address] Merrill made aware. Advised to place french. Pt refuses stating NO! It hurts too bad! made aware. New orders noted for urology consult. Dr. Funes office made aware of urinary retention and existing penile implant.
--- NOTE | 2022-10-11 15:50 | PC.NURSE ---
Pt to dialysis with O2 tank. No distress noted at this time.
--- NOTE | 2022-10-11 16:23 | P.PNNP_ITS ---
Progress Note: A&P Assessment and Plan (1) End stage renal disease: Code(s): N18.6 - End stage renal disease Status: Chronic Assessment and Plan: * HD today * continue M/W/F dialysis schedule while hospitalized * follow electrolytes, volume status, and clearance (2) Hypoxia: Code(s): R09.02 - Hypoxemia Status: Acute Assessment and Plan: * improving * suspect multifactorial: * COPD exacerbation * mild volume overload/CHF * DIMITRIS * on nebulizer treatments, steroids, and supplemental oxygen * fluid removal with HD (limited due to relative hypotension) * BiPAP with naps and at night * follow respiratory status * wean off oxygen as tolerated * continue supportive therapy (3) COPD (chronic obstructive pulmonary disease): Code(s): J44.9 - Chronic obstructive pulmonary disease, unspecified Status: Acute Assessment and Plan: * acute exacerbation * see #2 (4) Chronic diastolic congestive heart failure: Code(s): I50.32 - Chronic diastolic (congestive) heart failure Status: Chronic Assessment and Plan: * relatively compensated * ongoing fluid removal with HD * follow volume status (5) DIMITRIS (obstructive sleep apnea): Code(s): G47.33 - Obstructive sleep apnea (adult) (pediatric) Status: Chronic Assessment and Plan: * known history * questionable compliance with BiPAP * see #2 (6) Anemia: Code(s): D64.9 - Anemia, unspecified Status: Chronic Assessment and Plan: * due to ESRD * Epogen with HD * follow trend of H/H Will continue to follow. Subjective Date/time seen: 10/11/22 16:23 Interval history: Follow-up for end stage renal disease on hemodialysis. Tolerating hemodialysis treatment at the time of my visit (seen on HD at 4:15PM ); respiratory status seems stable if not better; no apparent issues/events overnight or earlier this morning; no acute distress noted; reports of altered mental status earlier today but seems at baseline to me; hoping for discharge soon.. Exam Narrative: General: somewhat ill-appearing male in NAD Heart: normal S1 and S2; no rub Lungs: clear anteriorly but decreased at bases Abdomen: soft, nontender, nondistended, positive bowel sounds Extremities: no cyanosis or clubbing; 1+ edema Skin: warm and intact Objective Data Vital Signs Vital Signs: Vital Signs Temp Pulse Resp BP Pulse Ox O2 Del Method O2 Flow Rate 07/28/23 16:06 1 10/11/22 09:00 93 Nasal Cannula 1 10/11/22 14:00 54 L 10/11/22 12:00 47 L 10/11/22 13:34 53 L 18 10/11/22 13:25 52 L 18 10/11/22 12:00 98.7 F 55 L 18 115/44 L 93 10/11/22 08:00 93 Nasal Cannula 1 10/11/22 10:00 55 L 10/11/22 08:00 59 L 10/11/22 08:00 98 F 54 L 20 118/53 L 93 10/11/22 07:10 54 L 18 10/11/22 07:00 53 L 18 10/11/22 07:00 53 L 18 96 Nasal Cannula 2 10/11/22 06:00 54 L 10/11/22 04:00 Room Air 10/11/22 04:00 96.9 F L 55 L 16 107/44 L 91 10/11/22 04:00 49 L 10/11/22 02:00 51 L 10/10/22 20:40 55 L 18 10/11/22 00:00 56 L 10/11/22 0
--- NOTE | 2022-10-11 16:23 | PM.PNNEP ---
Progress Note: A&P Assessment and Plan (1) End stage renal disease: Code(s): N18.6 - End stage renal disease Status: Chronic Assessment and Plan: HD today continue M/W/F dialysis schedule while hospitalized follow electrolytes, volume status, and clearance (2) Hypoxia: Code(s): R09.02 - Hypoxemia Status: Acute Assessment and Plan: improving suspect multifactorial: COPD exacerbation mild volume overload/CHF DIMITRIS on nebulizer treatments, steroids, and supplemental oxygen fluid removal with HD (limited due to relative hypotension) BiPAP with naps and at night follow respiratory status wean off oxygen as tolerated continue supportive therapy (3) COPD (chronic obstructive pulmonary disease): Code(s): J44.9 - Chronic obstructive pulmonary disease, unspecified Status: Acute Assessment and Plan: acute exacerbation see #2 (4) Chronic diastolic congestive heart failure: Code(s): I50.32 - Chronic diastolic (congestive) heart failure Status: Chronic Assessment and Plan: relatively compensated ongoing fluid removal with HD follow volume status (5) DIMITRIS (obstructive sleep apnea): Code(s): G47.33 - Obstructive sleep apnea (adult) (pediatric) Status: Chronic Assessment and Plan: known history questionable compliance with BiPAP see #2 (6) Anemia: Code(s): D64.9 - Anemia, unspecified Status: Chronic Assessment and Plan: due to ESRD Epogen with HD follow trend of H/H Will continue to follow. Subjective Date/time seen: 10/11/22 16:23 Interval history: Follow-up for end stage renal disease on hemodialysis. Tolerating hemodialysis treatment at the time of my visit (seen on HD at 4:15PM); respiratory status seems stable if not better; no apparent issues/events overnight or earlier this morning; no acute distress noted; reports of altered mental status earlier today but seems at baseline to me; hoping for discharge soon.. Exam Narrative: General: somewhat ill-appearing male in NAD Heart: normal S1 and S2; no rub Lungs: clear anteriorly but decreased at bases Abdomen: soft, nontender, nondistended, positive bowel sounds Extremities: no cyanosis or clubbing; 1+ edema Skin: warm and intact Objective Data Vital Signs Vital Signs: Vital Signs Temp Pulse Resp BP Pulse Ox O2 Del Method O2 Flow Rate 10/11/22 16:06 1 10/11/22 09:00 93 Nasal Cannula 1 10/11/22 14:00 54 L 10/11/22 12:00 47 L 10/11/22 13:34 53 L 18 10/11/22 13:25 52 L 18 10/11/22 12:00 98.7 F 55 L 18 115/44 L 93 10/11/22 08:00 93 Nasal Cannula 1 10/11/22 10:00 55 L 10/11/22 08:00 59 L 10/11/22 08:00 98 F 54 L 20 118/53 L 93 10/11/22 07:10 54 L 18 10/11/22 07:00 53 L 18 10/11/22 07:00 53 L 18 96 Nasal Cannula 2 10/11/22 06:00 54 L 10/11/22 04:00 Room Air 10/11/22 04:00 96.9 F L 55 L 16 107/44 L 91 10/11/22 04:00 49 L 10/11/22 02:00 51 L 10/10/22 20:40 55 L 18 10/11/22 00:00 56 L 10/11/22 00:00 Room Air 10/10/22 22:00 55 L 10/11/22 00:00 97.1 F L 55 L 16 116/47 L 96 10/10/22 20:00 55 L 10/10/22 20:00 97.3 F L 51 L 16 116/48 L 98 10/10/22 20:00 98 Nasal Cannula 1 10/10/22 20:13 93 Nasal Cannula 1 10/10/22 20:13 54 L 18 Intake/Output Intake/Output: Intake & Output 10/08/22 10/09/22 10/10/22 10/11/22 23:59 23:59 23:59 23:59 Intake Total 50 4050 1040 680 Output Total 1691 0 100 Balance 50 2359 1040 580 Meds/Results Medications: Active Medications Generic Name Dose Route Start Last Admin Trade Name Freq PRN Reason Stop Dose Admin Acetaminophen 650 mg 10/08/22 23:21 Acetaminophen 325 Mg Tablet PO Q6H PRN Mild Pain (1-3) or F
[2022-10-11] MEDS: ALBUMIN HUMAN 25% 12.5 GM/50ML 50 ML 50 GM ×3 (16:28→18:08)
--- NOTE | 2022-10-11 16:36 | WPDURCON ---
Assessment and Plan Assessment and plan (1) Retention, urine: Code(s): R33.9 - Retention of urine, unspecified Status: Acute Assessment and Plan: Patient continues to refuse a catheter despite being in retention. He is not uncomfortable and understands his risk of further kidney damage and if he continues to refuse a french catheter. I recommended that he have a french placed. (2) End stage renal disease: Code(s): N18.6 - End stage renal disease Status: Chronic Assessment and Plan: Patient is currently in dialysis. Urology Consult Note HPI Date Seen: 10/11/22 Time Seen: 16:36 Requesting Physician: Kike Zurita MD Primary Care Provider: Saeed Snyder, Consult Narrative Reason for consult: End Stage Renal Failure Narrative: Naldo Lowry is a 72 year old male who presented tot he ER for hypoxia from the [place] on 10/08/22. He is a peritoneal dialysis patient who was found to have retention and was straight catheterized earlier today and found to have 100cc in his bladder. He was later bladder scanned and found to have 575cc in his bladder but is refusing a catheter. He is A&O x2. His creatinine is 3.20, he is bradycardic but afebrile. He is not uncomfortable and states he does make urine but doesn't struggle to urinate. Review of Systems Cardiovascular: Cardiovascular: Denies chest pain Respiratory: Respiratory: Reports no additional respiratory complaints Gastrointestinal: Gastrointestinal: Denies abdominal pain and Denies nausea Genitourinary: Genitourinary: Denies hematuria, Denies urinary frequency, Denies urinary hesitancy, Denies urinary incontinence and Denies urinary urgency [facility] Past Medical History Medical History Chronic anemia Chronic diastolic congestive heart failure Echocardiogram in September 2019 showed normal left ventricular size and function with an ejection fraction estimated at 60 to 65% with abnormal diastolic function, moderate biatrial enlargement, mild aortic valve sclerosis, moderate aortic valve regurgitation, and trace mitral and tricuspid valve regurgitation. Chronic obstructive pulmonary disease Cirrhosis of liver with ascites Attributed to BURROWS however he has never had a liver biopsy. Coronary artery disease Status post 7 vessel CABG in 2007. No definite infarct or ischemia on nuclear stress test in September 2019. Diet-controlled type 2 diabetes mellitus End-stage renal disease on hemodialysis Erythropoietin deficiency anemia Gastroesophageal reflux disease GI bleed March 2014, November 2017, and more recently suspected occult GI loss in September 2019. Hyperlipidemia Hypertension Left bundle branch block Obstructive sleep apnea on CPAP The patient is supposed to use BiPAP but rarely uses it Paroxysmal atrial fibrillation not on long-term anticoagulation given history of GI bleed. Status post watchman left atrial appendage closure device insertion. Peripheral arterial disease Status post abdominal aortic aneurysm repair. Presence of Watchman left atrial appendage closure device Pulmonary hypertension Moderate pulmonary hypertension with an estimated pulmonary arterial systolic pressure of 50 mmHg on echocardiogram in September 2019. Renal osteodystrophy Ureterolithiasis (~09/2019) Surgical History Surgical History History of cataract extraction with lens replacement History of coronary artery bypass graft (~2007) 7 vessel bypass at [facility]. History of cystoscopy (~09/2019) With left ureteral stent and subsequent removal. History of penile implant History of squamous cell carcinoma excision (~11/2018) Excised from the left upper extremity. History of tonsillectomy History of ventral hernia repair (~09/2018) Family History Family History Mother
[2022-10-11] MEDS: EPOETIN ALFA 10,000 UNITS/ML VIAL 10000 UNITS IV PUSH (19:12)
[2022-10-12] VITALS (12 sets, daily range): BP systolic 109–130; BP diastolic 43–45; PULSE 40–57; RESP 16–24; TEMP 35.5–36.4; O2SAT 92–100
[2022-10-12] MEDS: IPRATROPIUM BR 0.02% INH SOLN 0.5 MG/2.5 ML VIAL INHALATION ×2 (03:18→14:13)
[2022-10-12] MEDS: ALBUTEROL SULFATE NEB 2.5 MG/3 ML INH INHALATION ×2 (03:18→14:13)
[2022-10-12 04:30] LABS: Basophils Percent Auto 0.3 % (0.2-1.2); Hematocrit 31.8 % (42.0-52.0); Hemoglobin 9.9 g/dL (14.0-18.0); Immature Granulocyte Absolute 0.12 K/mm3 (0.00-0.031); Immature Granulocyte Percent A 1.6 % (0-0.5); Immature Platelet Fraction Pct 2.7 % (0.9-11.2); Lymphocytes Absolute Auto 0.18 K/mm3 (0.9-3.2); Lymphocytes Percent Auto 2.4 % (18.3-44.2); Mean Corpuscular HGB Conc 31.1 g/dl (32-36); Mean Corpuscular Hemoglobin 29.7 pg (26-34); Mean Corpuscular Volume 95.5 fl (80-100); Monocytes Absolute Auto 0.6 K/mm3 (0.1-0.6); Monocytes Percent Auto 7.9 % (2.6-8.5); Neutrophils Absolute Auto 6.7 K/mm3 (1.3-6.7); Neutrophils Percent Auto 87.8 % (45.5-73.1); Nucleated Red Blood Cells Absolute Auto 0.1 K/mm3 (0.0-0.012); Nucleated Red Blood Cells Perc 1.2 % (0.0-0.2); Platelet Count Result 82 k/mm3 (150-375); Red Blood Count 3.33 M/mm3 (4.6-6.20); Red Cell Distribution Width 21.1 % (11.5-14.5); White Blood Count 7.6 K/mm3 (4.5-10.0)
[2022-10-12 04:48] LABS: Alanine Aminotransferase 15 U/L (6-50); Albumin Level 3.1 g/dL (3.5-5.1); Alkaline Phosphatase 190 U/L (38-126); Anion Gap 6 mmol/L (8-16); Aspartate Amino Transferase 17 U/L (17-59); Bilirubin,Total 1.7 mg/dL (0.2-1.3); Blood Urea Nitrogen 22 mg/dL (9-20); Calcium 8.6 mg/dL (8.4-10.2); Carbon Dioxide 32 mmol/L (22-30); Chloride 93 mmol/L (98-107); Estimated CRCL calculation 29 ml/min; Estimated Glomerular Filt Rate 29; Glucose 137 mg/dL (65-110); Potassium 3.4 mmol/L (3.4-5.0); Sodium 131 mmol/L (137-145)
[2022-10-12 05:09] LABS: Anisocytosis 1+ (NORMAL); Platelet Estimate Decreased (Adequate); Poikilocytosis 1+ (NORMAL); Schistocytes None Seen (NORMAL)
--- NOTE | 2022-10-12 09:21 | PCOTNOTE ---
Attempted OT evaluation. Pt declined therapy evaluation. RN aware.
[2022-10-12] MEDS: PANTOPRAZOLE 40 MG TABLET PO (10:09)
[2022-10-12] MEDS: BUMETANIDE 1 MG TABLET 2 MG PO (10:09)
[2022-10-12] MEDS: predniSONE 20 MG TABLET 40 MG PO (10:09)
[2022-10-12] MEDS: ATORVASTATIN 20 MG TABLET PO (10:09)
[2022-10-12] MEDS: ASPIRIN 81 MG ENTERIC TABLET PO (10:09)
--- NOTE | 2022-10-12 11:27 | P.PNNP_ITS ---
Progress Note: A&P Assessment and Plan (1) End stage renal disease: Code(s): N18.6 - End stage renal disease Status: Chronic Assessment and Plan: * HD yesterday * continue M/W/F dialysis schedule while hospitalized * follow electrolytes, volume status, and clearance (2) Hypoxia: Code(s): R09.02 - Hypoxemia Status: Acute Assessment and Plan: * better but still requiring on/off supplemental oxygen * suspect multifactorial: * COPD exacerbation * mild volume overload/CHF * DIMITRIS * possible bronchitis/pneumonia * on nebulizer treatments, steroids, and supplemental oxygen * fluid removal with HD (limited due to relative hypotension) * BiPAP with naps and at night * follow respiratory status * wean off oxygen as tolerated * continue supportive therapy (3) Confusion: Code(s): R41.0 - Disorientation, unspecified Status: Acute Assessment and Plan: * from previous hypoxia (?) * related to urinary retention (?) * something else.... * Neurology consulted for further evaluation (4) COPD (chronic obstructive pulmonary disease): Code(s): J44.9 - Chronic obstructive pulmonary disease, unspecified Status: Acute Assessment and Plan: * acute exacerbation * see #2 (5) Chronic diastolic congestive heart failure: Code(s): I50.32 - Chronic diastolic (congestive) heart failure Status: Chronic Assessment and Plan: * relatively compensated * ongoing fluid removal with HD as tolerated by hemodynamics * follow volume status (6) DIMITRIS (obstructive sleep apnea): Code(s): G47.33 - Obstructive sleep apnea (adult) (pediatric) Status: Chronic Assessment and Plan: * known history * questionable compliance with BiPAP * see #2 (7) Anemia: Code(s): D64.9 - Anemia, unspecified Status: Chronic Assessment and Plan: * due to ESRD * Epogen with HD * follow trend of H/H Will continue to follow. Subjective Date/time seen: 10/12/22 11:27 Interval history: Follow-up for end stage renal disease on hemodialysis. Tolerated hemodialysis treatment yesterday afternoon without any issues or problems; noted issues with urinary retention as noted by bladder scan but refused french catheter placement despite recommendations/discussion with Urology yesterday; no other acute complaints voiced at this time. Exam Narrative: General: somewhat ill-appearing male in NAD Heart: normal S1 and S2; no rub Lungs: clear anteriorly but decreased at bases Abdomen: soft, nontender, nondistended, positive bowel sounds Extremities: no cyanosis or clubbing; 1+ edema (chronic) Skin: no rash Objective Data Vital Signs Vital Signs: Vital Signs Temp Pulse Resp BP Pulse Ox O2 Del Method O2 Flow Rate 10/12/22 10:00 41 L 10/12/22 08:00 100 Nasal Cannula 1 10/12/22 08:00 96 F L 44 L 24 H 109/45 L 98 10/12/22 08:00 43 L 10/12/22 06:00 42 L 10/12/22 03:35 57 L 16 10/12/22 04:00 52 L 10/12/22 04:00 100 Nasal Cannula 1 10/12/22 04:00 97.1 F L 46 L 16 116/43 L 100 10/12/22 03:22 54 L 16 10/11/22 23:35 48 L 16 10/12/22 02:00 53 L 10/12/22 00:00 49 L
--- NOTE | 2022-10-12 11:27 | PM.PNNEP ---
Progress Note: A&P Assessment and Plan (1) End stage renal disease: Code(s): N18.6 - End stage renal disease Status: Chronic Assessment and Plan: HD yesterday continue M/W/F dialysis schedule while hospitalized follow electrolytes, volume status, and clearance (2) Hypoxia: Code(s): R09.02 - Hypoxemia Status: Acute Assessment and Plan: better but still requiring on/off supplemental oxygen suspect multifactorial: COPD exacerbation mild volume overload/CHF DIMITRIS possible bronchitis/pneumonia on nebulizer treatments, steroids, and supplemental oxygen fluid removal with HD (limited due to relative hypotension) BiPAP with naps and at night follow respiratory status wean off oxygen as tolerated continue supportive therapy (3) Confusion: Code(s): R41.0 - Disorientation, unspecified Status: Acute Assessment and Plan: from previous hypoxia (?) related to urinary retention (?) something else.... Neurology consulted for further evaluation (4) COPD (chronic obstructive pulmonary disease): Code(s): J44.9 - Chronic obstructive pulmonary disease, unspecified Status: Acute Assessment and Plan: acute exacerbation see #2 (5) Chronic diastolic congestive heart failure: Code(s): I50.32 - Chronic diastolic (congestive) heart failure Status: Chronic Assessment and Plan: relatively compensated ongoing fluid removal with HD as tolerated by hemodynamics follow volume status (6) DIMITRIS (obstructive sleep apnea): Code(s): G47.33 - Obstructive sleep apnea (adult) (pediatric) Status: Chronic Assessment and Plan: known history questionable compliance with BiPAP see #2 (7) Anemia: Code(s): D64.9 - Anemia, unspecified Status: Chronic Assessment and Plan: due to ESRD Epogen with HD follow trend of H/H Will continue to follow. Subjective Date/time seen: 10/12/22 11:27 Interval history: Follow-up for end stage renal disease on hemodialysis. Tolerated hemodialysis treatment yesterday afternoon without any issues or problems; noted issues with urinary retention as noted by bladder scan but refused french catheter placement despite recommendations/discussion with Urology yesterday; no other acute complaints voiced at this time. Exam Narrative: General: somewhat ill-appearing male in NAD Heart: normal S1 and S2; no rub Lungs: clear anteriorly but decreased at bases Abdomen: soft, nontender, nondistended, positive bowel sounds Extremities: no cyanosis or clubbing; 1+ edema (chronic) Skin: no rash Objective Data Vital Signs Vital Signs: Vital Signs Temp Pulse Resp BP Pulse Ox O2 Del Method O2 Flow Rate 10/12/22 10:00 41 L 10/12/22 08:00 100 Nasal Cannula 1 10/12/22 08:00 96 F L 44 L 24 H 109/45 L 98 10/12/22 08:00 43 L 10/12/22 06:00 42 L 10/12/22 03:35 57 L 16 10/12/22 04:00 52 L 10/12/22 04:00 100 Nasal Cannula 1 10/12/22 04:00 97.1 F L 46 L 16 116/43 L 100 10/12/22 03:22 54 L 16 10/11/22 23:35 48 L 16 10/12/22 02:00 53 L 10/12/22 00:00 49 L 10/12/22 00:00 97.5 F L 49 L 16 130/44 L 92 10/11/22 23:20 92 Nasal Cannula 1 10/11/22 23:23 97 Nasal Cannula 3 10/11/22 23:23 45 L 16 10/11/22 22:00 53 L 10/11/22 21:00 96 Nasal Cannula 1 10/11/22 20:28 97.6 F 52 L 16 123/60 10/11/22 19:58 47 L 115/58 L 10/11/22 19:40 52 L 123/60 10/11/22 19:20 52 L 121/58 L 10/11/22 19:00 48 L 105/52 L 10/11/22 18:40 63 134/38 L 10/11/22 18:20 112 H 163/127 H 10/11/22 18:00 113 H 120/92 H 10/11/22 20:00 49 L 10/11/22 20:47 97.4 F L 53 L 20 121/44 L 96 10/11/22 17:40 53 L 112/51 L 10/11/22 17:20 51 L 110/57 L 07
--- NOTE | 2022-10-12 11:27 | PM.DS ---
DS: Admitting Diagnosis Discharge Date 10/12/2022 Admitting Diagnosis Shortness of breath DS: Discharge Diagnosis Discharge Diagnosis (1) Hypoxia: Code(s): R09.02 - Hypoxemia Status: Acute Assessment and Plan: Resolved, now with some altered mental status, unsure etiology, check ammonia, ABG (2) Chronic obstructive pulmonary disease: Code(s): J44.9 - Chronic obstructive pulmonary disease, unspecified Status: Acute Assessment and Plan: Prednisone daily to complete 5 day course (3) Pneumonia: Code(s): J18.9 - Pneumonia, unspecified organism Status: Acute Assessment and Plan: Rocephin and azithromycin started 10/08 (4) Obstructive sleep apnea on CPAP: Code(s): G47.33 - Obstructive sleep apnea (adult) (pediatric); Z99.89 - Dependence on other enabling machines and devices Status: Acute Assessment and Plan: CPAP as able (5) Bradycardia: Code(s): R00.1 - Bradycardia, unspecified Status: Acute Assessment and Plan: Monitor, stable, appears to be asymptomatic (6) Chronic diastolic congestive heart failure: Code(s): I50.32 - Chronic diastolic (congestive) heart failure Status: Chronic Assessment and Plan: Appears to be relatively euvolemic, continue home diuretics (7) Cirrhosis of liver with ascites: Qualifiers: Hepatic cirrhosis type: unspecified hepatic cirrhosis Qualified Code(s): K74.60 - Unspecified cirrhosis of liver; R18.8 - Other ascites Code(s): K74.60 - Unspecified cirrhosis of liver; R18.8 - Other ascites Status: Chronic Assessment and Plan: Fluid removal per dialysis, monitor ascites (8) End-stage renal disease on hemodialysis: Code(s): N18.6 - End stage renal disease; Z99.2 - Dependence on renal dialysis Status: Chronic Assessment and Plan: Appreciate nephrology consultation Plan DVT prophylaxis with SCDs GI prophylaxis not indicated Code status full code DS: Summary Hospital Course Hospital Course: 71-year-old male with history of heart disease, hemodialysis, heart failure, AFib among other comorbidities is presenting with shortness of breath and being treated for possible pneumonia with COPD exacerbation and possible heart failure exacerbation. Nephrology was consulted to manage dialysis. He was placed on a 5 day course of steroids for possible COPD exacerbation. He also completed antibiotics for community-acquired pneumonia and was discharged on the last 2 days of the course necessary, please see med rec for details. He did have some intermittent altered mental status, this completely resolved prior to discharge. Time Spent with Patient Time attestation: Total time spent providing and/or coordinating discharge services: Exam Narrative: General: No acute distress, alert and oriented per baseline HEENT: Atraumatic, normocephalic, mucous membranes moist CV: Regular rate and rhythm, S1, S2 Lungs: Clear to auscultation bilaterally, no rales or crackles noted, no wheezes, good air entry Abdomen: Soft, nontender, nondistended Extremities: Normal to inspection Skin: No rashes noted, no lesions or wounds seen Psych: Euthymic, normal affect DS: Data Data Completed and Pending Labs on day of discharge: Labs from last 24 hours 10/12/22 10/11/22 03:58 11:21 WBC 7.6 RBC 3.33 L Hgb 9.9 L Hct 31.8 L MCV 95.5 MCH 29.7 MCHC 31.1 L RDW 21.1 H Plt Count 82 L MPV 9.0 Immature Gran % (Auto) 1.6 H Neut % (Auto) 87.8 H Lymph % (Auto) 2.4 L Drew % (Auto) 7.9 Eos % (Auto) 0.0 Baso % (Auto) 0.3 Lymph # (Auto) 0.18 L Drew # (Auto) 0.6 Eos # (Auto) 0.0 Baso # (Auto) 0.0 Abs Immat Gran (auto) 0.12 H Absolute Neuts (auto) 6.7 Absolute Nucleated RBC 0.1 H Nucleated RBC % 1.2 H Platelet Estimate Decreased % Immature Plt Fraction 2.7 Poikil
--- NOTE | 2022-10-12 14:17 | WPDNEURCNPN ---
Assessment and Plan Assessment and plan (1) Retention, urine: Code(s): R33.9 - Retention of urine, unspecified Status: Acute (2) Diastolic dysfunction: Code(s): I51.89 - Other ill-defined heart diseases Status: Acute (3) Chronic obstructive pulmonary disease: Code(s): J44.9 - Chronic obstructive pulmonary disease, unspecified Status: Acute (4) Atrial fibrillation: Code(s): I48.91 - Unspecified atrial fibrillation Status: Acute (5) End stage renal disease: Code(s): N18.6 - End stage renal disease Status: Chronic Plan 1 peritoneal dialysis dependent chronic renal disease 2 Atrial fibrillation with underlying dysfunction. 3. Urinary retention being treated with Arredondo's catheter 4. Medications include aspirin 81 mg daily which will be continued as such Consult date: 10/12/22 HPI: Naldo Lowry is a 72 year old male admitted to the hospital through the emergency room on transfer from the half-way after being found at the half-way with hypoxia patient does have ongoing history of 1. Congestive heart failure 2. COPD 3. Ongoing peritoneal dialysis and at the time of admission to the ER he was on 4L of oxygen by nasal cannula saturating 100% Marie to2L saturation dropped down to only 97% was complaining of severe right buttock had been taking multiple medications as outlined including aspirin 81 mg daily and also with the ongoing history of particularly chronic anemia, chronic congestive heart failure COPD, cirrhosis of the liver with ascites with history of having never had any biopsy being attributed to BURROWS history of coronary artery disease status post 7 vessel coronary artery bypass grafting, type 2 diabetes mellitus, paroxysmal atrial fibrillation but not on long-term anticoagulation therapy because of the underlying GI bleed though has watch min left atrial appendage closure device inserted, is status post abdominal aortic aneurysmal repair, and renal osteodystrophy. Patient is a former smoker by history never substance user by history. 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 Chronic obstructive pulmonary disease Cirrhosis of liver with ascites Attributed to BURROWS however he has never had a liver biopsy. Coronary artery disease Status post 7 vessel CABG in 2007. No definite infarct or ischemia on nuclear stress test in September 2019. Diet-controlled type 2 diabetes mellitus End-stage renal disease on hemodialysis Erythropoietin deficiency anemia Gastroesophageal reflux disease GI bleed March 2014, November 2017, and more recently suspected occult GI loss in September 2019. Hyperlipidemia Hypertension Left bundle branch block Obstructive sleep apnea on CPAP The patient is supposed to use BiPAP but rarely uses it Paroxysmal atrial fibrillation not on long-term anticoagulation given history of GI bleed. Status post watchman left atrial appendage closure device insertion. Peripheral arterial disease Status post abdominal aortic aneurysm repair. Presence of Watchman left atrial appendage closure device Pulmonary hypertension Moderate pulmonary hypertension with an estimated pulm
[2022-10-12 15:29] LABS: SARS-CoV-2 RNA PCR Negative (Negative)
[2022-10-15 17:23] LABS: Mycoplasma IgM Antibody Titer 480 U/mL (<770)
== END 2022-10-12 16:15 ==
LOC: ANHED 17:37 → ANHIMU 17:53
PROVIDERS: Internal Medicine Nephrology; Physician Assistant; Admitting Provider Hospitalist; Emergency Provider Emergency Medicine; PCP Internal Medicine; Visit Provider Student in an Organized Health Care Education/Training Program
DX: J18.9 Pneumonia, unspecified organism (principal); R09.02 Hypoxemia; J44.9 Chronic obstructive pulmonary disease, unspecified; G47.33 Obstructive sleep apnea (adult) (pediatric); R00.1 Bradycardia, unspecified; I13.2 Hypertensive heart and chronic kidney disease with heart failure and with stage 5 chronic kidney disease, or end stage renal disease; E11.22 Type 2 diabetes mellitus with diabetic chronic kidney disease; D63.1 Anemia in chronic kidney disease; I50.32 Chronic diastolic (congestive) heart failure; K74.60 Unspecified cirrhosis of liver; N18.6 End stage renal disease; Z20.822 Contact with and (suspected) exposure to COVID-19; Z99.2 Dependence on renal dialysis; Z95.818 Presence of other cardiac implants and grafts; K59.00 Constipation, unspecified; R11.10 Vomiting, unspecified; I25.810 Atherosclerosis of coronary artery bypass graft(s) without angina pectoris; Z95.1 Presence of aortocoronary bypass graft; N25.0 Renal osteodystrophy; E11.51 Type 2 diabetes mellitus with diabetic peripheral angiopathy without gangrene; I48.91 Unspecified atrial fibrillation; I27.20 Pulmonary hypertension, unspecified; R18.8 Other ascites; K75.81 Nonalcoholic steatohepatitis (NASH); R94.31 Abnormal electrocardiogram [ECG] [EKG]; R91.8 Other nonspecific abnormal finding of lung field; R33.9 Retention of urine, unspecified; I44.7 Left bundle-branch block, unspecified; K21.9 Gastro-esophageal reflux disease without esophagitis; E78.5 Hyperlipidemia, unspecified; E11.9 Type 2 diabetes mellitus without complications; Z87.891 Personal history of nicotine dependence; Z79.1 Long term (current) use of non-steroidal anti-inflammatories (NSAID); Z79.82 Long term (current) use of aspirin; Z79.52 Long term (current) use of systemic steroids; Z79.899 Other long term (current) drug therapy; Z83.3 Family history of diabetes mellitus; Z82.49 Family history of ischemic heart disease and other diseases of the circulatory system
CPT/HCPCS: 36415; 36600; 71045; 80053; 82140; 82375; 82805; 82948; 83050; 83605; 83735; 84439; 84443; 84480; 85025; 85027; 85055; 85610; 85730; 86706; 86738; 87040; 87070; 87205; 87340; 87635; 93005; 93970; 94640; 96365; 96375; 97161; 99285; A9270; G0257; G0378; J0456; J0461; J0696; J2930; J7030; J7512; P9047; Q4081

== ENCOUNTER 2022-11-04 15:18 | Emergency (ER) | payer MEDICARE, MEDICAID, SELFPAY ==
--- NOTE | ~2022-11-04 | CT_ITS ---
EXAMINATION: CT LE RT wo con DATE: 11/04/2022 20:45 INDICATION: Right lower leg swelling with concern for hematoma TECHNIQUE: High resolution computed tomography (CT) of the right lower leg was performed without intr avenous contrast. Additional sagittal and coronal reconstructions were performed. Automated exposure control and iterative reconstruction technique were employed. The dose-length product was 1000.76 mGy -cm. COMPARISON: None FINDINGS: Diffuse osteopenia. Alignment is normal. No fracture. Moderate osteoarthritis at the tarsal metatarsa l joints. Mild osteoarthritis at right knee right knee, ankle and remaining joints in the mid and hin dfoot. Extensive scattered vascular calcifications. There is marked subcutaneous edema throughout the right lower leg. There is a 4.5 x 2.2 x 5.0 cm region of increased density and a nearby second small er 1 cm region of increased density in the subcutaneous fat posterior to the mid calf which would be consistent with hematomas. No soft tissue gas or radiopaque foreign bodies. Small simple fluid attenu ation right knee joint effusion. IMPRESSION: 1. Marked nonspecific subcutaneous edema about the right calf with 5 x 4.5 x 2.2 cm and 1 cm diameter regions of increased density in the subcutaneous fat posterior to the mid calf which could be consis tent with hematomas. Reviewed, dictated and finalized at location A. IMPRESSION: 1. Marked nonspecific subcutaneous edema about the right calf with 5 x 4.5 x 2. 2 cm and 1 cm diameter regions of increased density in the subcutaneous fat pos terior to the mid calf which could be consistent with hematomas.
[2022-11-04 16:24] VITALS: BP 117/43; PULSE 69; RESP 20; TEMP 36.3; O2SAT 98
--- NOTE | 2022-11-04 19:49 | ED.GENADULT ---
HPI - General Adult General Chief complaint: Extremity Injury, Lower Stated complaint: right lower leg swelling Time Seen by Provider: 11/04/22 19:49 History of Present Illness HPI narrative: Patient is a 72-year-old male with history of ESRD, on HD M/W/F sent in from a [facility] home for right leg swelling and pain. Patient states that an old lady ran into the with her wheelchair a day and a half ago. He notes he has had some pain in that area since. He does not endorse any recent falls. He denies blood thinner use. He had a normal HD run today. No fever or chills. No chest pain or shortness of breath. Related Data Home Medications Medication Instructions Recorded Confirmed bumetanide 2 mg tablet 2 mg PO DAILY 09/06/19 10/08/22 aspirin 81 mg tablet,delayed 81 mg PO DAILY 03/15/22 10/08/22 release acetaminophen 325 mg tablet 650 mg PO Q6H PRN Pain 10/08/22 10/08/22 (Tylenol) bisacodyl 10 mg rectal suppository 10 mg RECTAL DAILY PRN Constipation 10/08/22 10/08/22 lidocaine-prilocaine 2.5 %-2.5 % 1 applic topical 3XW 10/08/22 10/08/22 topical cream magnesium citrate (Citroma oral 300 ml PO DAILY PRN Constipation 10/08/22 10/08/22 solution) magnesium hydroxide 400 mg/5 mL 30 ml PO HS PRN Constipation 10/08/22 10/08/22 oral suspension (Milk of Magnesia) ondansetron 4 mg disintegrating 4 mg PO Q6H PRN Vomiting 10/08/22 10/08/22 tablet sodium phosphates 19 gram-7 118 ml RECTAL DAILY PRN 10/08/22 10/08/22 gram/118 mL enema (Fleet Enema) Constipation Allergies Allergy/AdvReac Type Severity Reaction Status Date / Time codeine Allergy Unknown RASH/BLISTE Verified 11/05/22 08:07 RS Review of Systems Review of Systems: All systems reviewed & are unremarkable except as noted in HPI and below PMFSH Past Medical History Medical History Chronic anemia Chronic diastolic congestive heart failure Echocardiogram in September 2019 showed normal left ventricular size and function with an ejection fraction estimated at 60 to 65% with abnormal diastolic function, moderate biatrial enlargement, mild aortic valve sclerosis, moderate aortic valve regurgitation, and trace mitral and tricuspid valve regurgitation. Chronic obstructive pulmonary disease Cirrhosis of liver with ascites Attributed to BURROWS however he has never had a liver biopsy. Coronary artery disease Status post 7 vessel CABG in 2007. No definite infarct or ischemia on nuclear stress test in September 2019. Diet-controlled type 2 diabetes mellitus End-stage renal disease on hemodialysis Erythropoietin deficiency anemia Gastroesophageal reflux disease GI bleed March 2014, November 2017, and more recently suspected occult GI loss in September 2019. Hyperlipidemia Hypertension Left bundle branch block Obstructive sleep apnea on CPAP The patient is supposed to use BiPAP but rarely uses it Paroxysmal atrial fibrillation not on long-term anticoagulation given history of GI bleed. Status post watchman left atrial appendage closure device insertion. Peripheral arterial disease Status post abdominal aortic aneurysm repair. Presence of Watchman left atrial appendage closure device Pulmonary hypertension Moderate pulmonary hypertension with an estimated pulmonary arterial systolic pressure of 50 mmHg on echocardiogram in September 2019. Renal osteodystrophy Ureterolithiasis (~09/2019) Surgical History Surgical History History of cataract extraction with lens replacement History of coronary artery bypass graft (~2007) 7 vessel bypass at [facility]. History of cystoscopy (~09/2019) With left ureteral stent and subsequent removal. History of penile implant History of squamous cell carcinoma excision (~11/2018) Excised from the left upper extremity. History of tonsillectomy History of ventral hernia repair (~09/2018) Family History
[2022-11-04 20:27] LABS: Hematocrit 35.2 % (42.0-52.0); Hemoglobin 11.1 g/dL (14.0-18.0); Mean Corpuscular HGB Conc 31.5 g/dl (32-36); Mean Corpuscular Hemoglobin 30.3 pg (26-34); Mean Corpuscular Volume 96.2 fl (80-100); Mean Platelet Volume 9.8 fl (7.4-10.4); Platelet Count Result 84 k/mm3 (150-375); Red Blood Count 3.66 M/mm3 (4.6-6.20); Red Cell Distribution Width 20.6 % (11.5-14.5)
[2022-11-04 20:38] LABS: Alanine Aminotransferase 26 U/L (6-50); Alkaline Phosphatase 522 U/L (38-126); Anion Gap 6 mmol/L (8-16); Aspartate Amino Transferase 41 U/L (17-59); Bilirubin,Total 2.6 mg/dL (0.2-1.3); Blood Urea Nitrogen 22 mg/dL (9-20); Calcium 7.9 mg/dL (8.4-10.2); Carbon Dioxide 31 mmol/L (22-30); Chloride 95 mmol/L (98-107); Creatine Kinase < 20 U/L (55-170); Estimated CRCL calculation 29 ml/min; Estimated Glomerular Filt Rate 29; Glucose 164 mg/dL (65-110); INR 1.2; Magnesium 1.7 mg/dL (1.6-2.3); Potassium 3.8 mmol/L (3.4-5.0); Prothrombin Time 16.4 Seconds (11.1-14.7); Sodium 132 mmol/L (137-145)
[2022-11-04 20:40] LABS: Partial Thromboplastin Time 39.1 SECONDS (22.3-36.8)
[2022-11-04 20:50] LABS: Eosinophils Absolute Manual 0.21 K/mm3 (0.02-0.5); Eosinophils Percent Manual 3 % (0-4); Lymphocytes Absolute Manual 0.63 K/mm3 (1.1-4.5); Monocytes Percent Manual 10 % (3-9); Neutrophils Percent Manual 78 % (46-73); Platelet Estimate Decreased (Adequate); Total Cells Counted 100
[2022-11-04 20:51] LABS: Schistocytes None Seen (NORMAL)
[2022-11-04 20:52] LABS: Anisocytosis 3+ (NORMAL); Hypochromasia 1+ (NORMAL)
[2022-11-04 20:53] LABS: Erythrocyte Sedimentation Rate 22 mm/hr (0-20)
[2022-11-04 23:49] VITALS: BP 129/69; PULSE 52; RESP 15; O2SAT 97
--- NOTE | 2022-11-04 23:53 | PC.NURSE ---
see downtime charting regarding pt care from [id number]. This RN took report from Mary Lou RN and assumed care of Pt @2314.
== END 2022-11-04 23:56 ==
LOC: ANHED 20:06
PROVIDERS: Emergency Provider Student in an Organized Health Care Education/Training Program; PCP Internal Medicine
DX: S80.11XA Contusion of right lower leg, initial encounter (principal); E11.22 Type 2 diabetes mellitus with diabetic chronic kidney disease; I13.2 Hypertensive heart and chronic kidney disease with heart failure and with stage 5 chronic kidney disease, or end stage renal disease; I50.32 Chronic diastolic (congestive) heart failure; N18.6 End stage renal disease; D63.1 Anemia in chronic kidney disease; E11.51 Type 2 diabetes mellitus with diabetic peripheral angiopathy without gangrene; I73.9 Peripheral vascular disease, unspecified; I25.10 Atherosclerotic heart disease of native coronary artery without angina pectoris; J44.9 Chronic obstructive pulmonary disease, unspecified; E78.5 Hyperlipidemia, unspecified; N25.0 Renal osteodystrophy; G47.33 Obstructive sleep apnea (adult) (pediatric); K74.60 Unspecified cirrhosis of liver; K21.9 Gastro-esophageal reflux disease without esophagitis; Z99.2 Dependence on renal dialysis; Z95.1 Presence of aortocoronary bypass graft; I48.0 Paroxysmal atrial fibrillation; I27.20 Pulmonary hypertension, unspecified; Z96.1 Presence of intraocular lens; Z87.442 Personal history of urinary calculi; Z87.891 Personal history of nicotine dependence; Z98.49 Cataract extraction status, unspecified eye; Z85.828 Personal history of other malignant neoplasm of skin; Z79.82 Long term (current) use of aspirin; W22.8XXA Striking against or struck by other objects, initial encounter
CPT/HCPCS: 36415; 73700; 80053; 82550; 83735; 85025; 85055; 85610; 85652; 85730; 86140; 99284

== ENCOUNTER 2022-11-05 07:52 | Emergency (ER) | payer MEDICARE, MEDICAID, SELFPAY ==
--- NOTE | ~2022-11-05 | US_ITS ---
EXAMINATION: US venous doppler LE RT DATE: 11/05/2022 08:55 INDICATION: Right lower limb pain and swelling. TECHNIQUE: Grayscale ultrasound images without and with compression and Doppler ultrasound images of the right lower extremity veins were obtained. COMPARISON: Ultrasound 10/08/2022 FINDINGS: The visualized portions of right common femoral vein, profunda (deep) femoral vein, femoral vein, pop liteal vein, peroneal veins, posterior tibial veins, and greater saphenous vein outflow are patent. IMPRESSION: 1. No deep venous thrombosis. Reviewed, dictated and finalized at location A.
[2022-11-05 07:58] VITALS: BP 120/54; PULSE 45; RESP 14; TEMP 36.6; O2SAT 96
[2022-11-05 10:46] VITALS: BP 114/49; PULSE 44; RESP 15; O2SAT 94
[2022-11-05 12:15] VITALS: BP 119/47; PULSE 42; RESP 14; O2SAT 96
--- NOTE | 2022-11-05 12:56 | ED.EXTPRO ---
HPI - Extremity Problem General Chief complaint: Extremity Problem,Nontraumatic Stated complaint: rule out dvt Time Seen by Provider: 11/05/22 09:46 Source: patient and EMS Mode of arrival: EMS Limitations: no limitations History of Present Illness HPI Narrative: 72 years old white male came by ambulance from [facility] because of pain of the right lower leg noticed by the staff, for 2 days. Patient denies any trauma, fever, chills, nausea, vomiting, chest pain or shortness of breath. Related Data Home Medications Medication Instructions Recorded Confirmed bumetanide 2 mg tablet 2 mg PO DAILY 09/06/19 10/08/22 aspirin 81 mg tablet,delayed 81 mg PO DAILY 03/15/22 10/08/22 release acetaminophen 325 mg tablet 650 mg PO Q6H PRN Pain 10/08/22 10/08/22 (Tylenol) bisacodyl 10 mg rectal suppository 10 mg RECTAL DAILY PRN Constipation 10/08/22 10/08/22 lidocaine-prilocaine 2.5 %-2.5 % 1 applic topical 3XW 10/08/22 10/08/22 topical cream magnesium citrate (Citroma oral 300 ml PO DAILY PRN Constipation 10/08/22 10/08/22 solution) magnesium hydroxide 400 mg/5 mL 30 ml PO HS PRN Constipation 10/08/22 10/08/22 oral suspension (Milk of Magnesia) ondansetron 4 mg disintegrating 4 mg PO Q6H PRN Vomiting 10/08/22 10/08/22 tablet sodium phosphates 19 gram-7 118 ml RECTAL DAILY PRN 10/08/22 10/08/22 gram/118 mL enema (Fleet Enema) Constipation Allergies Allergy/AdvReac Type Severity Reaction Status Date / Time codeine Allergy Unknown RASH/BLISTE Verified 11/05/22 08:07 RS Review of Systems Review of Systems: All systems reviewed & are unremarkable except as noted in HPI and below PMFSH Past Medical History Medical History Chronic anemia Chronic diastolic congestive heart failure Echocardiogram in September 2019 showed normal left ventricular size and function with an ejection fraction estimated at 60 to 65% with abnormal diastolic function, moderate biatrial enlargement, mild aortic valve sclerosis, moderate aortic valve regurgitation, and trace mitral and tricuspid valve regurgitation. Chronic obstructive pulmonary disease Cirrhosis of liver with ascites Attributed to BURROWS however he has never had a liver biopsy. Coronary artery disease Status post 7 vessel CABG in 2007. No definite infarct or ischemia on nuclear stress test in September 2019. Diet-controlled type 2 diabetes mellitus End-stage renal disease on hemodialysis Erythropoietin deficiency anemia Gastroesophageal reflux disease GI bleed March 2014, November 2017, and more recently suspected occult GI loss in September 2019. Hyperlipidemia Hypertension Left bundle branch block Obstructive sleep apnea on CPAP The patient is supposed to use BiPAP but rarely uses it Paroxysmal atrial fibrillation not on long-term anticoagulation given history of GI bleed. Status post watchman left atrial appendage closure device insertion. Peripheral arterial disease Status post abdominal aortic aneurysm repair. Presence of Watchman left atrial appendage closure device Pulmonary hypertension Moderate pulmonary hypertension with an estimated pulmonary arterial systolic pressure of 50 mmHg on echocardiogram in September 2019. Renal osteodystrophy Ureterolithiasis (~09/2019) Surgical History Surgical History History of cataract extraction with lens replacement History of coronary artery bypass graft (~2007) 7 vessel bypass at [facility]. History of cystoscopy (~09/2019) With left ureteral stent and subsequent removal. History of penile implant History of squamous cell carcinoma excision (~11/2018) Excised from the left upper extremity. History of tonsillectomy History of ventral hernia repair (~09/2018) Family History Family History Mother Diabetes mellitus Acute myocardial infarction Father Deceas
[2022-11-05 13:55] VITALS: BP 122/47; PULSE 46; RESP 19; O2SAT 97
== END 2022-11-05 14:07 ==
PROVIDERS: Emergency Provider Emergency Medicine; PCP Internal Medicine
DX: M79.661 Pain in right lower leg (principal); I13.2 Hypertensive heart and chronic kidney disease with heart failure and with stage 5 chronic kidney disease, or end stage renal disease; E11.22 Type 2 diabetes mellitus with diabetic chronic kidney disease; N18.6 End stage renal disease; I50.32 Chronic diastolic (congestive) heart failure; D63.1 Anemia in chronic kidney disease; N25.0 Renal osteodystrophy; J44.9 Chronic obstructive pulmonary disease, unspecified; I48.0 Paroxysmal atrial fibrillation; I27.20 Pulmonary hypertension, unspecified; K74.60 Unspecified cirrhosis of liver; E78.5 Hyperlipidemia, unspecified; I73.9 Peripheral vascular disease, unspecified; E11.51 Type 2 diabetes mellitus with diabetic peripheral angiopathy without gangrene; K21.9 Gastro-esophageal reflux disease without esophagitis; G47.33 Obstructive sleep apnea (adult) (pediatric); Z95.1 Presence of aortocoronary bypass graft; Z85.828 Personal history of other malignant neoplasm of skin; Z87.442 Personal history of urinary calculi; Z87.891 Personal history of nicotine dependence; Z98.49 Cataract extraction status, unspecified eye; Z96.1 Presence of intraocular lens; Z79.82 Long term (current) use of aspirin
CPT/HCPCS: 93971; 99284

== ENCOUNTER 2022-12-16 13:26 | Inpatient (IN) | payer MEDICARE, MEDICAID, SELFPAY ==
[2022-12-16] VITALS (7 sets, daily range): BP systolic 103–119; BP diastolic 51–55; PULSE 46–77; RESP 12–19; TEMP 36.3; O2SAT 98–100
--- NOTE | ~2022-12-16 | CT_ITS ---
EXAMINATION: CTA LE DATE: 12/17/2022 18:20 INDICATION: Left foot ulcer. Peripheral vascular disease. TECHNIQUE: Computed tomographic angiography (CTA) of the left lower extremity was performed with 150 mL Omnipaque-350 intravenous contrast. Automated exposure control and iterative reconstruction techni que were employed. The dose-length product was 544.14 mGy-cm. Maximum intensity projection 3D-reconst ructions of the arteries were created by the technologist on a separate workstation. COMPARISON: CT abdomen and pelvis 10/04/2020 FINDINGS: LEFT LOWER EXTREMITY VASCULATURE: There are widespread arterial calcifications. There is no significant stenosis of left common femoral artery, profunda femoris, superficial femoral artery, popliteal artery, or tibial peroneal trunk. Th ere is no significant stenosis of posterior tibial artery. There is an anastomosis of left anterior t ibial artery with peroneal artery distally. There is moderate stenosis of origin of left anterior tib ial artery. There is total occlusion of mid left peroneal artery with distal reconstitution. ADDITIONAL FINDINGS: There is a large volume of ascites. A peritoneal dialysis catheter is noted. There is a penile prosth esis. There is a small left knee joint effusion. There is subcutaneous edema in left lower limb. Ther e is a healing comminuted fracture of calcaneal tuberosity. IMPRESSION: 1. Total occlusion of mid left peroneal artery with distal reconstitution. 2. Moderate stenosis of origin of left anterior tibial artery. 3. Healing comminuted fracture of left calcaneal tuberosity. Reviewed, dictated and finalized at location E.
--- NOTE | ~2022-12-16 | XR_ITS ---
EXAM: XR foot LT 2V DATE: 12/16/2022 19:29 HISTORY: gangrenous toes . COMPARISON: None available. FINDINGS: Severe osteopenia. Extensive vascular calcification. Mild scattered degenerative change. Pl radha enthesopathy. Possible erosions at the right second metatarsal head and proximal aspect of the right second proximal phalange. IMPRESSION: Possible erosions at the right second metatarsal head and proximal aspect of the right se cond proximal phalange, noting that examination is limited and confounded by severe osteopenia. Consi caitlyn MR of the foot for further evaluation. Reviewed, dictated and finalized at location K. IMPRESSION: Possible erosions at the right second metatarsal head and proximal aspect of the right second proximal phalange, noting that examination is limite d and confounded by severe osteopenia. Consider MR of the foot for further eval uation.
--- NOTE | ~2022-12-16 | US_ITS ---
EXAMINATION: US arterial ankle brachial ind DATE: 12/16/2022 19:22 INDICATION: Gangrenous toes TECHNIQUE: Segmental pressures and plethysmographic and Doppler waveforms of the brachial and lower e xtremity arteries were obtained. COMPARISON: None. FINDINGS: Right and brachial artery pressure of 124 mm Hg, respectively brachial pressures unable to be obtaine d due to the presence of an intravascular graft. The right ankle-brachial index (MERLENE) is 2.10 (normal >= 0.9-1.0). The right great toe-brachial index (TBI) is 0.79 (normal >= 0.65). Arterial Doppler waveforms are biphasic with brisk systolic upstrokes at both right posterior tibial and dorsalis pedis arteries. The left MERLENE is 1.10. The left TBI is unable to be obtained due to open wounds to the great toe. [place] rial Doppler waveforms are biphasic with brisk systolic upstrokes at both left posterior tibial and d orsalis pedis arteries. IMPRESSION: 1. No significant arterial occlusive disease with normal bilateral ABIs and right TBI. Left TBI unabl e be obtained due to the presence of open wounds on the toe. Reviewed, dictated and finalized at location A. IMPRESSION: 1. No significant arterial occlusive disease with normal bilateral ABIs and rig ht TBI. Left TBI unable be obtained due to the presence of open wounds on the t oe.
--- NOTE | ~2022-12-16 | CT_ITS ---
EXAMINATION: CT brain wo con DATE: 12/16/2022 17:05 INDICATION: ams . TECHNIQUE: Computed tomography (CT) of the head was performed without intravenous contrast. The mA wa s adjusted according to patient size. Iterative reconstruction technique was employed. The dose-lengt h product was 605.33 mGy-cm. COMPARISON: 10/04/2020, 03/23/2022. FINDINGS: No acute intracranial hemorrhage or extra-axial fluid collection. No hydrocephalus, mass, or herniation. No acute ischemic infarct. Unremarkable dural venous sinus attenuation. No acute osseous abnormality. The aerated spaces are clear. Moderate atrophy and chronic white matter change. Atherosclerotic intracranial calcification. 7 mm hy perdense focus anterior to the left frontal horn, likely dystrophic calcification, seen as far back a s 2020. Left lens replacement. IMPRESSION: No acute intracranial process. Reviewed, dictated and finalized at location K.
--- NOTE | ~2022-12-16 | XR_ITS ---
EXAMINATION: XR chest 1V portable INDICATION: Respiratory failure TECHNIQUE: Portable AP chest at 1012 hours COMPARISON: 12/16/2022 FINDINGS: Cardiomegaly is noted. Median sternotomy wires are consistent with prior cardiac surgery. T here is chronic elevation of the right hemidiaphragm. There is mild atelectasis of the right lung bas e. No pleural effusion or pneumothorax identified. IMPRESSION: 1. Cardiomegaly. 2. Stable right basilar airspace opacities, atelectasis versus pneumonia. Reviewed, dictated and finalized at location A.
--- NOTE | ~2022-12-16 | XR_ITS ---
EXAMINATION: XR chest 1V portable Exam Date/Time: 12/16/2022 16:50 CDT HISTORY: ams Comparison: 10/08/2022. RESULT: Lines, tubes, and devices: Intact sternotomy wires. Lungs and pleura: Increased groundglass opacity in the right upper lung. Persistent right mid and lo wer lung airspace disease. Persistent right costophrenic angle blunting. Cardiomediastinal silhouette: Stable. Other: No acute osseous or upper abdominal finding. IMPRESSION: Chronic/recurrent right lower lung atelectasis/consolidation and moderate right pleural effusion. Reviewed, dictated and finalized at location K.
--- NOTE | 2022-12-16 13:39 | ECG_ITS ---
Measurements Intervals [place] Rate: 52 P: FL: 0 QRS: -66 QRSD: 122 T: 131 QT: 465 QTc: 435 Interpretive Statements ATRIAL FIBRILLATION WITH SLOW VENTRICULAR RESPONSE POSSIBLE ANTERIOR MYOCARDIAL INFARCTION , OF INDETERMINATE AGE [30 ms Q WAVE IN V3/V4, OR R < 0.2 mV IN V4] INFERIOR MYOCARDIAL INFARCTION , PROBABLY OLD [40+ ms Q WAVE AND/OR ST/T ABNORMALITY IN II/aVF] COMPARED TO ECG 10/08/2022 15:37:14 NO SIGNIFICANT CHANGES Electronically Signed On 12-17-2022 12:08:21 CDT by Vu Gallardo M.D.
[2022-12-16 13:55] LABS: Basophils Absolute Auto 0.1 K/mm3 (0.0-0.1); Basophils Percent Auto 0.3 % (0.2-1.2); Eosinophils Absolute Auto 0.1 K/mm3 (0-0.3); Eosinophils Percent Auto 0.6 % (0-4.4); Hematocrit 33.6 % (42.0-52.0); Hemoglobin 10.9 g/dL (14.0-18.0); Immature Granulocyte Absolute 0.15 K/mm3 (0.00-0.031); Immature Granulocyte Percent A 0.8 % (0-0.5); Lymphocytes Absolute Auto 0.52 K/mm3 (0.9-3.2); Lymphocytes Percent Auto 2.9 % (18.3-44.2); Mean Corpuscular HGB Conc 32.4 g/dl (32-36); Mean Corpuscular Hemoglobin 30.9 pg (26-34); Mean Corpuscular Volume 95.2 fl (80-100); Mean Platelet Volume 9.6 fl (7.4-10.4); Monocytes Absolute Auto 1.5 K/mm3 (0.1-0.6); Monocytes Percent Auto 8.5 % (2.6-8.5); Neutrophils Absolute Auto 15.4 K/mm3 (1.3-6.7); Neutrophils Percent Auto 86.9 % (45.5-73.1); Platelet Count Result 133 k/mm3 (150-375); Red Blood Count 3.53 M/mm3 (4.6-6.20); Red Cell Distribution Width 15.9 % (11.5-14.5); White Blood Count 17.7 K/mm3 (4.5-10.0)
[2022-12-16 14:07] LABS: INR 1.4; Prothrombin Time 17.5 Seconds (11.1-14.7)
[2022-12-16 14:08] LABS: Partial Thromboplastin Time 34.3 SECONDS (22.3-36.8)
[2022-12-16 14:09] LABS: Alanine Aminotransferase 15 U/L (6-50); Albumin Level 2.8 g/dL (3.5-5.1); Alkaline Phosphatase 180 U/L (38-126); Anion Gap 9 mmol/L (8-16); Aspartate Amino Transferase 32 U/L (17-59); Bilirubin,Total 1.6 mg/dL (0.2-1.3); Blood Urea Nitrogen 55 mg/dL (9-20); Calcium 8.3 mg/dL (8.4-10.2); Carbon Dioxide 28 mmol/L (22-30); Chloride 93 mmol/L (98-107); Estimated CRCL calculation 15 ml/min; Estimated Glomerular Filt Rate 15; Glucose 61 mg/dL (65-110); Potassium 4.8 mmol/L (3.4-5.0); Sodium 130 mmol/L (137-145)
--- NOTE | 2022-12-16 16:50 | ED.AMS ---
HPI - Altered Mental Status General Chief Complaint: Altered Mental Status Stated Complaint: AMS Time Seen by Provider: 12/16/22 14:58 History of Present Illness HPI narrative: Patient is a 72-year-old male with a history of ESRD on dialysis, A-fib, diabetes, hypertension presenting with altered mental status. Patient is coming from a nursing facility. He reportedly refused dialysis this morning because his back and legs hurt. His daughter is at bedside and helps with the history. States that he does seem slightly confused. States usually his ammonia is high when this happens because he does not like to take his lactulose. Currently, the patient denies any complaints other than hunger. He denies pain, numbness or weakness, shortness of breath, cough. Related Data Home Medications Medication Instructions Recorded Confirmed bumetanide 2 mg tablet 2 mg PO DAILY 09/06/19 12/17/22 aspirin 81 mg tablet,delayed 81 mg PO DAILY 03/15/22 12/17/22 release acetaminophen 325 mg tablet 650 mg PO Q6H PRN Pain 10/08/22 12/17/22 (Tylenol) bisacodyl 10 mg rectal suppository 10 mg RECTAL DAILY PRN Constipation 10/08/22 12/17/22 lidocaine-prilocaine 2.5 %-2.5 % 1 applic topical 3XW 10/08/22 12/17/22 topical cream magnesium citrate (Citroma oral 300 ml PO DAILY PRN Constipation 10/08/22 12/17/22 solution) magnesium hydroxide 400 mg/5 mL 30 ml PO HS PRN Constipation 10/08/22 12/17/22 oral suspension (Milk of Magnesia) ondansetron 4 mg disintegrating 4 mg PO Q6H PRN Vomiting 10/08/22 12/17/22 tablet sodium phosphates 19 gram-7 118 ml RECTAL DAILY PRN 10/08/22 12/17/22 gram/118 mL enema (Fleet Enema) Constipation ascorbic acid (vitamin C) 500 mg 500 mg PO BID 12/17/22 12/17/22 tablet clopidogrel 75 mg tablet 75 mg PO DAILY 12/17/22 12/17/22 gabapentin 300 mg capsule 300 mg PO DAILY 12/17/22 12/17/22 pentoxifylline 400 mg 400 mg PO DAILY 12/17/22 12/17/22 tablet,extended release tramadol 50 mg tablet 50 mg PO BID PRN Pain 12/17/22 12/17/22 Allergies Allergy/AdvReac Type Severity Reaction Status Date / Time codeine Allergy Unknown RASH/BLISTE Verified 11/05/22 08:07 RS Review of Systems Review of Systems: All systems reviewed & are unremarkable except as noted in HPI and below PMFSH Past Medical History Medical History Chronic anemia Chronic diastolic congestive heart failure Echocardiogram in September 2019 showed normal left ventricular size and function with an ejection fraction estimated at 60 to 65% with abnormal diastolic function, moderate biatrial enlargement, mild aortic valve sclerosis, moderate aortic valve regurgitation, and trace mitral and tricuspid valve regurgitation. Chronic obstructive pulmonary disease Cirrhosis of liver with ascites Attributed to BURROWS however he has never had a liver biopsy. Coronary artery disease Status post 7 vessel CABG in 2007. No definite infarct or ischemia on nuclear stress test in September 2019. Diet-controlled type 2 diabetes mellitus End-stage renal disease on hemodialysis Erythropoietin deficiency anemia Gastroesophageal reflux disease GI bleed March 2014, November 2017, and more recently suspected occult GI loss in September 2019. Hyperlipidemia Hypertension Left bundle branch block Obstructive sleep apnea on CPAP The patient is supposed to use BiPAP but rarely uses it Paroxysmal atrial fibrillation not on long-term anticoagulation given history of GI bleed. Status post watchman left atrial appendage closure device insertion. Peripheral arterial disease Status post abdominal aortic aneurysm repair. Pulmonary hypertension Moderate pulmonary hypertension with an estimated pulmonary arterial systolic pressure of 50 mmHg on echocardiogram in September 2019. Renal osteodystrophy Ureterolithiasis (~09/2019) Surgical History Surgical History History of cataract extraction with
[2022-12-16] MEDS: SODIUM CHLORIDE 0.9% IV 500 ML 999 ML IV CONT (17:44)
--- NOTE | 2022-12-16 17:57 | PC.NURSE ---
Daughter informed music writer that the pt has had problems with his Left foot and toes. Daughter removed pt sock where it was discovered that the pt has a sole to the side of his Left foot and multiple sores on his toes with the 2nd toe being blackened at the tip. Daughter stated that the pt had a wound care consult after his previous discharge and that the [facility]dc was informed and instructed on wound care. Left foot appears reddened, slightly edematous, pedal pulses present per doppler. Prior to daughter informer the music writer the pt had not spoken or complained about his foot, pt still has no complaints about foot.
--- NOTE | 2022-12-16 18:25 | PC.NURSE ---
Pt to US at this time
[2022-12-16 19:11] LABS: Appearance Urine Cloudy (Clear); Bacteria Urine None Seen /hpf; Bilirubin Urine 1+ (Negative); Color Urine Dark Yellow (Yellow); Glucose Urine UA Negative (Negative); Ketones Urine Negative (Negative); Leukocyte Esterase Ur 3+ LEU/UL (Negative); Need Manual Microscopic Reviewed; Nitrate Urine Positive (Negative); Non Pathogenic Casts 0-2; Protein Urine 1+ mg/dL (Negative); Specific Grav Ur 1.017 (1.001-1.035); Squamous Epithelial Cell Urine Few /hpf (Few); Urobilinogen Urine 0.2 mg/dL (<2.0); WBC Urine 21-50 /hpf
[2022-12-16] MEDS: CEFEPIME 1 GM/NS 50 ML 1 GM/50 ML BAG IVPB (19:51)
[2022-12-16 20:12] LABS: Ammonia 24 umol/L (9-30)
[2022-12-16 20:17] LABS: Add Urine Microscopic? YES
[2022-12-16] MEDS: SODIUM CHLORIDE 0.9% IV 1,000 ML 999 ML IV CONT (20:30)
[2022-12-16] MEDS: HYDROmorphone HCL INJ (*CRX) 1 MG/ML SYR 0.5 MG IV PUSH (21:46)
--- NOTE | 2022-12-16 23:56 | ADMGEN ---
This patient, Naldo Lowry, was admitted to 3 Med Surg Room 302-01. Patient/family oriented to hospital policies and general routines including ID bracelet, bed and alarms, visiting hours, pain management, procedures, bathroom and other care routines, personal items, smoking policy, room service/diet, and visiting hours. Information on how to activate the Rapid Response Team has been discussed. Patient/Family are encouraged to report perceived risks to care and to ask questions if they do not understand what they are told or what they should do.
[2022-12-17] VITALS (13 sets, daily range): BP systolic 90–118; BP diastolic 43–61; PULSE 40–64; RESP 16–18; TEMP 35.1–36.6; O2SAT 96–100; BMI 21.2
--- NOTE | 2022-12-17 01:44 | PM.IMHP ---
H&P: HPI History of Present Illness Date/Time: 12/17/22 01:44 Chief Complaint: Sent in for change in mental status Narrative: 72-year-old male with a past history of end-stage renal disease on hemodialysis since 08/2020, atrial fibrillation status post Watchman, CHF, coronary artery disease, COPD, obstructive sleep apnea noncompliant with CPAP, Burrows with cirrhosis and diabetes who presented to the ER from [facility] due to increased confusion. The patient is a dialysis patient is post go to dialysis Friday. He evidently refused dialysis today due to his back and leg hurting. He reports that his entire left foot is extremely painful. He has been having pain in the foot and signs of infection for a couple of weeks. In the ER found to be intermittently mildly bradycardic and afebrile. The daughter was with the patient when he came to the ER. She stated that he usually gets slightly confused when his ammonia is high. His ammonia level in the ER was normal. He had no complaints in the ER except for feeling hungry. Labs in the ER demonstrated leukocytosis. On exam patient had noted gangrenous right foot wound. He is extremely slow to respond and cannot provide any significant medical history. He is oriented to the name of the hospital, year and name of the current president. He thought the month was September. He does report that his entire left foot hurts. On exam the patient had obviously gangrenous 2nd toe the left foot. He has been afebrile since presentation. Nursing staff tells me that the retirement recently place patient on Plavix 75 mg daily for the last week or so. Arterial or Dopplers in the ER reportedly normal. Review of Systems Review of Systems: Review of systems was attempted but limited due to patient's mentation [facility] Past Medical History Medical History (Updated 12/17/22 @ 07:45 by Deepthi Young DO) Chronic anemia Chronic diastolic congestive heart failure Echocardiogram in September 2019 showed normal left ventricular size and function with an ejection fraction estimated at 60 to 65% with abnormal diastolic function, moderate biatrial enlargement, mild aortic valve sclerosis, moderate aortic valve regurgitation, and trace mitral and tricuspid valve regurgitation. Chronic obstructive pulmonary disease Cirrhosis of liver with ascites Attributed to BURROWS however he has never had a liver biopsy. Coronary artery disease Status post 7 vessel CABG in 2007. No definite infarct or ischemia on nuclear stress test in September 2019. Diet-controlled type 2 diabetes mellitus End-stage renal disease on hemodialysis Erythropoietin deficiency anemia Gastroesophageal reflux disease GI bleed March 2014, November 2017, and more recently suspected occult GI loss in September 2019. Hyperlipidemia Hypertension Left bundle branch block Obstructive sleep apnea on CPAP The patient is supposed to use BiPAP but rarely uses it Paroxysmal atrial fibrillation not on long-term anticoagulation given history of GI bleed. Status post watchman left atrial appendage closure device insertion. Peripheral arterial disease Status post abdominal aortic aneurysm repair. Pulmonary hypertension Moderate pulmonary hypertension with an estimated pulmonary arterial systolic pressure of 50 mmHg on echocardiogram in September 2019. Renal osteodystrophy Ureterolithiasis (~09/2019) Surgical History Surgical History (Updated 12/17/22 @ 07:42 by Deepthi Young, ) History of cataract extraction with lens replacement History of coronary artery bypass graft (~2007) 7 vessel bypass at [facility]. History of cystoscopy (~09/2019) With left ureteral stent and subsequent removal. History of penile implant History of squamous cell carcinoma excision (~11/2018) Excised from the left upper extremity. History of tonsillectomy History of ventral hernia repair (~09/2018) Presence of Watchman left atrial appenda
[2022-12-17] MEDS: CEFEPIME 1 GM/NS 50 ML 1 GM/50 ML BAG IVPB (03:27)
[2022-12-17] MEDS: metroNIDAZOLE 500 MG/ISO 100ML 500 MG/100 ML BAG 100 MG IVPB ×3 (03:27→17:09)
[2022-12-17 06:59] LABS: Estimated CRCL calculation 14 ml/min; Estimated Glomerular Filt Rate 14
[2022-12-17 07:51] LABS: Hematocrit 31.7 % (42.0-52.0); Hemoglobin 10.1 g/dL (14.0-18.0); Immature Platelet Fraction Pct 2.3 % (0.9-11.2); Mean Corpuscular HGB Conc 31.9 g/dl (32-36); Mean Corpuscular Hemoglobin 30.9 pg (26-34); Mean Corpuscular Volume 96.9 fl (80-100); Mean Platelet Volume 9.5 fl (7.4-10.4); Platelet Count Result 111 k/mm3 (150-375); Red Blood Count 3.27 M/mm3 (4.6-6.20); Red Cell Distribution Width 15.9 % (11.5-14.5); White Blood Count 14.3 K/mm3 (4.5-10.0)
[2022-12-17 07:56] LABS: Anion Gap 10 mmol/L (8-16); Blood Urea Nitrogen 56 mg/dL (9-20); Calcium 7.9 mg/dL (8.4-10.2); Carbon Dioxide 25 mmol/L (22-30); Chloride 95 mmol/L (98-107); Estimated CRCL calculation 14 ml/min; Estimated Glomerular Filt Rate 14; Glucose 75 mg/dL (65-110); Potassium 4.4 mmol/L (3.4-5.0); Sodium 130 mmol/L (137-145)
[2022-12-17 08:31] LABS: Band Neutrophils Percent 17 % (0-6); Eosinophils Absolute Manual 0.28 K/mm3 (0.02-0.5); Eosinophils Percent Manual 2 % (0-4); Lymphocytes Absolute Manual 0.57 K/mm3 (1.1-4.5); Metamyelocytes Percent 3 %; Monocytes Absolute Manual 0.42 K/mm3 (0.1-0.90); Monocytes Percent Manual 3 % (3-9); Neutrophils Absolute Manual 12.58 K/mm3 (1.3-6.7); Neutrophils Percent Manual 71 % (46-73); Schistocytes None Seen (NORMAL); Total Cells Counted 100
[2022-12-17 08:32] LABS: Crenated RBC 1+ (NORMAL); Poikilocytosis 1+ (NORMAL)
[2022-12-17] MEDS: ASCORBIC ACID 500 MG TABLET PO ×2 (09:03→17:06)
[2022-12-17] MEDS: HEPARIN SODIUM 5,000 UNITS/ML VIAL 5000 UNITS SUB-Q ×2 (09:03→21:13)
[2022-12-17] MEDS: CLOPIDOGREL BISULFATE 75 MG TABLET PO (09:03)
[2022-12-17] MEDS: ASPIRIN 81 MG ENTERIC TABLET PO (09:03)
[2022-12-17] MEDS: ATORVASTATIN 20 MG TABLET PO (09:03)
[2022-12-17] MEDS: PANTOPRAZOLE 40 MG TABLET PO (09:03)
[2022-12-17] MEDS: GABAPENTIN 300 MG CAPSULE PO (09:03)
[2022-12-17] MEDS: PENTOXIFYLLINE 400 MG TABCR PO (10:16)
--- NOTE | 2022-12-17 11:57 | PM.CNGS ---
Assessment and Plan Assessment and plan (1) Diabetic wet gangrene of the foot: Code(s): E11.52 - Type 2 diabetes mellitus with diabetic peripheral angiopathy with gangrene Status: Acute Assessment and Plan: Continue broad spectrum IV antibiotics. ABIs pending. Dr. Duong discussed both operative and nonoperative treatment options with the patient in detail. He wishes to avoid surgery at this time. May need to discuss further with family. Continue antibiotics, local wound care, and will continue to monitor. (2) Peripheral arterial disease: Code(s): I73.9 - Peripheral vascular disease, unspecified Status: Acute Assessment and Plan: ABIs pending. Hx decreased TBI in February 2022 c/w arterial occlusive disease. (3) Hematoma of right lower leg: Code(s): S80.11XA - Contusion of right lower leg, initial encounter Status: Acute Assessment and Plan: Hematoma of right posterior calf from October. Still present and appears slightly erythematous with very tiny area of pressure necrosis. This would not account for his leukocytosis. May need to eventually have incision and drainage if addressing his left foot wound with surgery. He is still on Plavix, which would potentially need to be held prior to proceeding. Will continue to monitor and discuss with Dr. Duong. (4) Atrial fibrillation with slow ventricular response: Code(s): I48.91 - Unspecified atrial fibrillation Status: Acute (5) Chronic obstructive pulmonary disease: Code(s): J44.9 - Chronic obstructive pulmonary disease, unspecified Status: Acute (6) End-stage renal disease on hemodialysis: Code(s): N18.6 - End stage renal disease; Z99.2 - Dependence on renal dialysis Status: Acute Assessment and Plan: Management per primary service, Nephrology. (7) CHF (congestive heart failure): Code(s): I50.9 - Heart failure, unspecified Status: Acute (8) Diabetes: Code(s): E11.9 - Type 2 diabetes mellitus without complications Status: Acute (9) Antiplatelet or antithrombotic long-term use: Code(s): Z79.02 - terminal worker (current) use of antithrombotics/antiplatelets Status: Acute Assessment and Plan: Plavix continued, will have nursing try to clarify with family/prison why patient is taking this and potentially recently started on this medication. (10) Cirrhosis of liver with ascites: Qualifiers: Hepatic cirrhosis type: unspecified hepatic cirrhosis Qualified Code(s): K74.60 - Unspecified cirrhosis of liver; R18.8 - Other ascites Code(s): K74.60 - Unspecified cirrhosis of liver; R18.8 - Other ascites Status: Chronic Plan I have discussed the patient's case and plan of care with Dr. Duong. Thank you for allowing us to see the patient in consultation and we will continue to follow along with you. History of Present Illness Consult details Consult date: 12/17/22 Reason for consult: other (Infected left foot wound) Requesting physician: Sultana Mckeon MD Narrative: This is a 72-year-old man with multiple medical problems, who presented to the emergency department from [facility] due to increased confusion. He has end-stage renal disease and receives hemodialysis on Friday, Friday, and Friday. He apparently refused dialysis yesterday due to his back and leg hurting. He reports pain in the left foot with redness in the foot for the past few weeks. Labs in the ER were significant for leukocytosis. On exam, he was found to have a gangrenous left foot wound. He is oriented to place and year, but has difficulty providing any additional significant history. No family is at the bedside, therefore his history is obtained by review of the electronic medical record. He has been afebrile since admission. He was admitted to the hospitalist service and started on broad-spectrum IV antibiotics. He is also currently on
--- NOTE | 2022-12-17 12:29 | ECG_ITS ---
Measurements Intervals Home Rate: 42 P: OR: 0 QRS: -66 QRSD: 134 T: 151 QT: 563 QTc: 473 Interpretive Statements ATRIAL FIBRILLATION WITH SLOW VENTRICULAR RESPONSE MARKED LEFT AXIS DEVIATION [QRS AXIS < -30] LEFT BUNDLE BRANCH BLOCK [120+ ms QRS DURATION, 80+ ms Q/S IN V1/V2, 85+ ms R IN I/aVL/V5/V6] COMPARED TO ECG 12/16/2022 13:44:13 NO SIGNIFICANT CHANGES Electronically Signed On 12-17-2022 12:50:56 CDT by Vu Gallardo M.D.
--- NOTE | 2022-12-17 12:30 | PC.NURSE ---
tele rhythm appears junctional in 30-40s. patient denies symptoms. ekg ordered. MD to see
[2022-12-17] MEDS: ATROPINE SULFATE 1 MG/10 ML SYRINGE IV PUSH (13:03)
--- NOTE | 2022-12-17 13:03 | PM.CNNEP ---
Assessment and Plan Assessment and plan (1) End stage renal disease: Code(s): N18.6 - End stage renal disease Status: Chronic Assessment and Plan: plan HD tomorrow continue M/W/F dialysis schedule while hospitalized follow electrolytes, volume status, and clearance (2) Gangrene of left foot: Code(s): I96 - Gangrene, not elsewhere classified Status: Acute Assessment and Plan: Surgery following with likely need for surgical intervention continue antibiotics local wound care pain control (3) Chronic diastolic congestive heart failure: Code(s): I50.32 - Chronic diastolic (congestive) heart failure Status: Chronic Assessment and Plan: relatively compensated ongoing fluid removal with HD follow volume status (4) DIMITRIS (obstructive sleep apnea): Code(s): G47.33 - Obstructive sleep apnea (adult) (pediatric) Status: Chronic Assessment and Plan: known history non-compliant with BiPAP BiPAP here if patient allows (5) Anemia: Code(s): D64.9 - Anemia, unspecified Status: Chronic Assessment and Plan: due to ESRD Epogen with HD follow trend of H/H I will continue follow the patient with you while he remains hospitalized and make further recommendations as needed. Thank you for allowing me to participate in the care this patient. History of Present Illness Reason for Consult Consult date: 12/17/22 Reason for consult: end stage renal disease Chief Complaint Chief complaint: Infected Foot Wounds History of Present Illness Narrative: The patient is a 72-year-old male from extensive past medical history as outlined below presented to [facility] Emergency room from his nursing facility due to altered mental status/confusion. Most of the information that I have obtained is from review of the electronic medical record as well as discussion with other physician/nurses involved in the patient's care as it is difficult for the patient to relate the events that led to his presentation to the hospital. The patient has been having ongoing issues and problems with significant pain in his back and legs. His left foot has been extremely painful in general and apparently there have been associated color changes in this left foot over the last few weeks. I am unclear if he has been getting higher doses of pain medications that may have led to his altered mentation but given these concerns/issues, he presented to the ER for further assessment. Workup and evaluation emergency room demonstrated the patient be hemodynamically stable and did not really complain of any significant pain at the time of his arrival to the ER. Routine blood test demonstrated labs consistent with his known history of end-stage renal disease but his cbc demonstrated markedly elevated white blood cell count. On exam, there was significant skin changes in his left foot. His 2nd toe on the left foot was gangrenous and there was significant pain with any palpation of his left foot in general. Given the concerns of infection and perhaps early sepsis as a cause for his confusion, appropriate cultures were obtained and he was started on broad-spectrum IV antibiotic therapy with surgical consultation for better assessment of his left foot changes. He was subsequent admitted to the hospital for further evaluation therapy. Since his admission, he is being seen by General surgery who recommends surgical intervention as antibiotics alone are not likely to be curative of the infection that he has. He apparently will likely either need at transmetatarsal amputation versus possible below-knee amputation of his left leg depending on the extent of his known peripheral vascular disease. Renal consultation was requested due to his end-stage renal disease. The patient is quite familiar to myself as I take care of his dialysis needs. The patient was initially started on hemodi
--- NOTE | 2022-12-17 13:14 | PM.IMPN ---
Progress Note: A&P Assessment and Plan (1) Hematoma of right lower leg: Code(s): S80.11XA - Contusion of right lower leg, initial encounter Status: Acute (2) Peripheral arterial disease: Code(s): I73.9 - Peripheral vascular disease, unspecified Status: Acute (3) Diabetic wet gangrene of the foot: Code(s): E11.52 - Type 2 diabetes mellitus with diabetic peripheral angiopathy with gangrene Status: Acute (4) Diabetic infection of right foot: Code(s): E11.628 - Type 2 diabetes mellitus with other skin complications; L08.9 - Local infection of the skin and subcutaneous tissue, unspecified Status: Acute (5) Abnormal urinalysis: Code(s): R82.90 - Unspecified abnormal findings in urine Status: Acute (6) Atrial fibrillation with slow ventricular response: Code(s): I48.91 - Unspecified atrial fibrillation Status: Acute (7) Diabetic foot ulcer: Qualifiers: Diabetic foot ulcer location: toe Diabetes mellitus type: type 2 Laterality: right Non-pressure ulcer stage: unspecified non-pressure ulcer stage Qualified Code(s): E11.621 - Type 2 diabetes mellitus with foot ulcer; L97.519 - Non-pressure chronic ulcer of other part of right foot with unspecified severity Code(s): E11.621 - Type 2 diabetes mellitus with foot ulcer; L97.509 - Non-pressure chronic ulcer of other part of unspecified foot with unspecified severity Status: Acute (8) Retention, urine: Code(s): R33.9 - Retention of urine, unspecified Status: Acute (9) DIMITRIS (obstructive sleep apnea): Code(s): G47.33 - Obstructive sleep apnea (adult) (pediatric) Status: Chronic (10) Diastolic dysfunction: Code(s): I51.89 - Other ill-defined heart diseases Status: Acute (11) Chronic obstructive pulmonary disease: Code(s): J44.9 - Chronic obstructive pulmonary disease, unspecified Status: Acute (12) Bradycardia: Code(s): R00.1 - Bradycardia, unspecified Status: Acute (13) Hypoxia: Code(s): R09.02 - Hypoxemia Status: Acute (14) Pneumonia: Code(s): J18.9 - Pneumonia, unspecified organism Status: Acute (15) COPD (chronic obstructive pulmonary disease): Code(s): J44.9 - Chronic obstructive pulmonary disease, unspecified Status: Acute (16) Bacteremia: Code(s): R78.81 - Bacteremia Status: Acute (17) End stage renal disease: Code(s): N18.6 - End stage renal disease Status: Chronic (18) Cirrhosis: Code(s): K74.60 - Unspecified cirrhosis of liver Status: Chronic (19) Encephalopathy: Code(s): G93.40 - Encephalopathy, unspecified Status: Acute (20) End-stage renal disease on hemodialysis: Code(s): N18.6 - End stage renal disease; Z99.2 - Dependence on renal dialysis Status: Acute Plan 1. Diabetic wet gangrene of foot with L arterial occlusive disease On cefepime, flagyl, vancomycin Per General surgery, Continue broad spectrum IV antibiotics. ABIs pending. Dr. Duong discussed both operative and nonoperative treatment options with the patient in detail. He wishes to avoid surgery at this time. May need to discuss further with family. Continue antibiotics, local wound care, and will continue to monitor. Need to give a 500 mL NS Bolus for sepsis. pt was never given IVF apparently or have lactic acid checked Blood cx pending 2. Slow afib with symptomatic bradycardia Consulted Dr. Roberts from Cardiology. Appreciate her consultation atropine given x 1 0.5 mg with resolution of hypotension and improvement of hr from 40 to 62. BP from 90/50 to 118/81 ct pt on med surg with tele hx of atrial fibrillation status post Watchman, CHF, coronary artery disease,? hx of LBBB not on long-term anticoagulation given history of GI bleed.? Status post watchman left atrial appendage closure device insertion. GI bleed- March 2014, November 2017, and
--- NOTE | 2022-12-17 13:20 | PC.NURSE ---
patient heart rate 30-40s. blood pressure 90/43. Dr. Falcon here to see patient. He wants atropine iv given. orders received. Stephanie notified to administer medication. Stephanie gave 0.5 mg of atropine slow push and heart rate went up to 62 and new blood pressure 118/61. Dr. Falcon gave orders to hold other half of atropine dose.
[2022-12-17] MEDS: CALCIUM GLUC 1,000 MG/NS 50 ML 1,000 MG/50 ML BAG 100 MG IVPB (14:08)
[2022-12-17] MEDS: SODIUM CHLORIDE 0.9% IV 500 ML IV CONT (14:08)
[2022-12-17 15:46] LABS: Hematocrit 31.5 % (42.0-52.0); Hemoglobin 10.1 g/dL (14.0-18.0); Immature Platelet Fraction Pct 2.1 % (0.9-11.2); Mean Corpuscular HGB Conc 32.1 g/dl (32-36); Mean Corpuscular Hemoglobin 31.2 pg (26-34); Mean Corpuscular Volume 97.2 fl (80-100); Mean Platelet Volume 9.7 fl (7.4-10.4); Platelet Count Result 103 k/mm3 (150-375); Red Blood Count 3.24 M/mm3 (4.6-6.20); Red Cell Distribution Width 15.9 % (11.5-14.5)
[2022-12-17 15:56] LABS: Potassium 4.1 mmol/L (3.4-5.0)
[2022-12-17 16:01] LABS: Anion Gap 10 mmol/L (8-16); Blood Urea Nitrogen 56 mg/dL (9-20); Calcium 8.2 mg/dL (8.4-10.2); Carbon Dioxide 23 mmol/L (22-30); Chloride 96 mmol/L (98-107); Estimated CRCL calculation 14 ml/min; Estimated Glomerular Filt Rate 14; Glucose 96 mg/dL (65-110); Sodium 129 mmol/L (137-145)
[2022-12-17 16:21] LABS: Band Neutrophils Percent 21 % (0-6); Eosinophils Absolute Manual 0.13 K/mm3 (0.02-0.5); Eosinophils Percent Manual 1 % (0-4); Lymphocytes Absolute Manual 0.26 K/mm3 (1.1-4.5); Monocytes Absolute Manual 0.13 K/mm3 (0.1-0.90); Monocytes Percent Manual 1 % (3-9); Neutrophils Absolute Manual 12.48 K/mm3 (1.3-6.7); Neutrophils Percent Manual 75 % (46-73); Total Cells Counted 100
[2022-12-17 16:22] LABS: Anisocytosis 1+ (NORMAL); Burr Cells 1+ (NORMAL); Ovalocytes 1+ (NORMAL); Platelet Estimate Decreased (Adequate); Schistocytes None Seen (NORMAL)
--- NOTE | 2022-12-17 16:55 | PM.CNCAR ---
Assessment and Plan Assessment and plan (1) Atrial fibrillation with slow ventricular response: Code(s): I48.91 - Unspecified atrial fibrillation Status: Acute Assessment and Plan: S/P Watchman device, not requiring anticoagulation for it. HR dips down into low 30's especially while sleeping, probably related to increased vagal tone and worsened by untreated DIMITRIS. If persistently low in low 30's, symptomatic and with low <90's SBP may give Atropine 0.5 mg IV. Discuss with patient and patient's daughter need for pacemaker eventually, but not now in light of foot infection. (2) DIMITRIS (obstructive sleep apnea): Code(s): G47.33 - Obstructive sleep apnea (adult) (pediatric) Status: Chronic Assessment and Plan: If we can get him back on CPAP which he was non-compliant in past and that is why he no longer has device, this would help his nocturnal bradycardia. (3) Coronary artery 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: Code(s): I25.810 - Atherosclerosis of coronary artery bypass graft(s) without angina pectoris Status: Acute Assessment and Plan: Stable. (4) ESRD (end stage renal disease): Code(s): N18.6 - End stage renal disease Status: Chronic (5) Diabetic wet gangrene of the foot: Code(s): E11.52 - Type 2 diabetes mellitus with diabetic peripheral angiopathy with gangrene Status: Acute Assessment and Plan: Surgery following. On antibiotics. History of Present Illness History of Present Illness Consult date/time: 12/17/22 16:55 Reason For Visit: Infected Foot Wounds Narrative: 72 yr old man who is my regular cardiology patient presents to ER from care home due to leg pain. He has a history of chronic diastolic heart failure, PAF s/p Watchman device, bradycardia, CKD, COPD, DIMITRIS not using CPAP, Anemia, CAD/CABG, ESRD on hemodialysis. He is mildly confused intermittently per patient's daughter who is at bedside. He reports he was having severe left leg pain and he is confused. It was noted his HR got down to 30's bpm and with low BP 90's SBP, he was given a dose of Atropine 0.5 mg which increased his HR and BP. He is limited at walking 1/4 block with a cane from NEFF and COPD.? He does have mild edema of legs.? Denies chest pain, sob, orthopnea, PND, dizziness, palpitations. Cardiovascular Procedures Vice President Quality Improvement:: CV Surgery ([facility]: 7 vessel CABG and ascending aortic aneurysm repair.) - 2007 Echo/MUGA:: 05/15/22 Echo: EF 60-65%, mild LVH, diastolic dysfunction (E/e' 26), RV mod hypokinesis with TAPSE 1.0 cm, mild RVE, mod biatrial enlargement, mild AI, mod MAC, trace MR, Aortic root 4.3 cm, RVSP 75 mmHg. Echo (EF 60%, diastolic dysfunction (E/E' 19), atrial fib, mild biatrial enlargement, trace MR/PI, mild-mod AI, mild TR, Aortic root 4.1 cm.) - 10/22/2017 Echo (EF 65%, mild LVH, diastolic dysfunction (E/E' 18), atrial fib, mod LAE, mild MADAN, small left to right shunt by color doppler s/o ASD/PFO, severe pulm hypertension, RVSP 72 mmHg, mild TR/PI, Ao root 4.5 cm.) - 12/10/2016 Echo (EF 67%, mild LVH, grade 2 diastolic dysfunction, mild biatrial enlargement, mild MR/AI/TR, severe pulm hypertension with RVSP 72 mmHg, Ascending aorta graft is normal, sinus of valsalva is dilated at 4.6 cm.) - 04/15/2016 Electrophysiology:: 04/23/22 5 days event monitor: Sinus rhythm, HR range 37-117 bpm; average 48 bpm; 37 bpm was on 04/25/22 at 20:18, 1% PAC's, 53 episodes of atrial fibrillation with burden of 15% and fastest at 117 bpm and longest lasting 2 hours and 9 minutes; 2% PVC's. 10/04/20 EKG: Atrial fibrillation at 78 bpm, PRWP, inferior infarct, age indeterminate, borderline ST-T wave abnormality in anterolat/high lat leads. Devices (Dr. Morris at [facility]: Implanted 30 mm Watchman device.) - 06/02/2018 EKG (Atrial fibrillation, low voltage, LAFB, borderline ST-T in lateral leads.) - 07/22/2016 Stress Tests:: Venous Duplex (No DVT of l
[2022-12-17] MEDS: traMADol HCL (*CRX) 50 MG TABLET PO (17:08)
[2022-12-18] VITALS (21 sets, daily range): BP systolic 64–114; BP diastolic 42–82; PULSE 47–103; RESP 7–24; TEMP 32.9–36.8; O2SAT 55–100
[2022-12-18] MEDS: BELLADONNA ALK/PHENOB ELIX 10 ML, MAG HYDROX/ALUMINUM HYD/SIMETH 30 ML, LIDOCAINE HCL 2... PO (02:02)
[2022-12-18] MEDS: metroNIDAZOLE 500 MG/ISO 100ML 500 MG/100 ML BAG 100 MG IVPB ×2 (02:03→09:34)
[2022-12-18] MEDS: CEFEPIME 1 GM/NS 50 ML 1 GM/50 ML BAG IVPB (02:03)
[2022-12-18 05:14] LABS: Hematocrit 29.2 % (42.0-52.0); Hemoglobin 9.4 g/dL (14.0-18.0); Immature Platelet Fraction Pct 2.3 % (0.9-11.2); Mean Corpuscular HGB Conc 32.2 g/dl (32-36); Mean Corpuscular Volume 96.4 fl (80-100); Mean Platelet Volume 9.5 fl (7.4-10.4); Platelet Count Result 105 k/mm3 (150-375); Red Blood Count 3.03 M/mm3 (4.6-6.20); Red Cell Distribution Width 15.8 % (11.5-14.5); White Blood Count 15.2 K/mm3 (4.5-10.0)
[2022-12-18 05:34] LABS: Albumin Level 2.3 g/dL (3.5-5.1); Anion Gap 11 mmol/L (8-16); Blood Urea Nitrogen 57 mg/dL (9-20); Calcium 7.6 mg/dL (8.4-10.2); Carbon Dioxide 21 mmol/L (22-30); Chloride 95 mmol/L (98-107); Estimated CRCL calculation 14 ml/min; Estimated Glomerular Filt Rate 14; Glucose 123 mg/dL (65-110); Phosphorus 6.3 mg/dL (2.5-4.5); Potassium 4.3 mmol/L (3.4-5.0); Sodium 127 mmol/L (137-145)
[2022-12-18 05:41] LABS: Neutrophils Percent Manual 79 % (46-73); Total Cells Counted 100
[2022-12-18 05:42] LABS: Band Neutrophils Percent 10 % (0-6); Basophils Absolute Manual 0.15 K/mm3 (0.0-0.1); Basophils Percent Manual 1 % (0-1); Burr Cells 3+ (NORMAL); Eosinophils Percent Manual 4 % (0-4); Lymphocytes Percent Manual 2 % (18-44); Monocytes Percent Manual 4 % (3-9); Neutrophils Absolute Manual 13.52 K/mm3 (1.3-6.7); Ovalocytes 1+ (NORMAL); Schistocytes Rare (NORMAL)
[2022-12-18 06:04] LABS: Vancomycin Random 10.5 ug/mL (10-20)
[2022-12-18 06:27] LABS: Hepatitis B Surface Antigen Negative (Negative)
[2022-12-18 06:45] LABS: Hepatitis B Surface Anti Res Negative
--- NOTE | 2022-12-18 07:41 | PM.PNCARD ---
Progress Note: A&P Assessment and Plan (1) Atrial fibrillation with slow ventricular response: Code(s): I48.91 - Unspecified atrial fibrillation Status: Acute Assessment and Plan: S/P Watchman device, not requiring anticoagulation for it. HR dips down into low 30's especially while sleeping, probably related to increased vagal tone and worsened by untreated DIMITRIS. If persistently low in low 30's, symptomatic and with low <90's SBP may give Atropine 0.5 mg IV. Discuss with patient and patient's daughter may eventually pacemaker eventually, but not now in light of foot infection and HR is not persistently bradycardic. (2) DIMITRIS (obstructive sleep apnea): Code(s): G47.33 - Obstructive sleep apnea (adult) (pediatric) Status: Chronic Assessment and Plan: If we can get him back on CPAP which he was non-compliant in past and that is why he no longer has device, this would help his nocturnal bradycardia. (3) Coronary artery 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: Code(s): I25.810 - Atherosclerosis of coronary artery bypass graft(s) without angina pectoris Status: Acute Assessment and Plan: Stable. (4) ESRD (end stage renal disease): Code(s): N18.6 - End stage renal disease Status: Chronic (5) Diabetic wet gangrene of the foot: Code(s): E11.52 - Type 2 diabetes mellitus with diabetic peripheral angiopathy with gangrene Status: Acute Assessment and Plan: Hypothermia being treated with warming blanket. Surgery following. On antibiotics. Subjective Date/time seen: 12/18/22 07:41 Interval history: Had hypothermia last night. Reports nausea/vomiting. No chest pain or sob or dizziness. Exam Const: General: cooperative and alert Orientation/consciousness: oriented to person, oriented to place and oriented to time Resp: Auscultation: clear to auscultation bilaterally, no crackles, no rales, no rhonchi and no wheezes Cardio: Rate: bradycardic Rhythm: abnormal rhythm Heart sounds: no murmurs Peripheral pulses: dorsalis pedis present Neuro: General: oriented to person, oriented to place and oriented to time Extrem: Right lower extremity: edema Left lower extremity: edema Other: Mild edema of legs. Gangrene of 2nd toe of right foot and into mid foot Objective Data Vital Signs Vital Signs: Vital Signs - 24 hr 12/17/22 08:00 12/17/22 09:00 12/17/22 12:00 Temperature Pulse Rate 40 L 40 L Respiratory Rate Blood Pressure Pulse Oximetry 100 Oxygen Delivery Nasal Cannula Oxygen Flow Rate 2 12/17/22 12:40 12/17/22 13:10 12/17/22 14:00 Temperature 97.8 F Pulse Rate 64 Respiratory Rate 16 Blood Pressure 90/43 L 118/61 113/52 L Pulse Oximetry 98 Oxygen Delivery Oxygen Flow Rate 12/17/22 17:03 12/17/22 16:00 12/17/22 22:00 Temperature 95.2 F L Pulse Rate 60 46 L Respiratory Rate 18 Blood Pressure 111/58 L Pulse Oximetry 96 100 Oxygen Delivery Room Air Oxygen Flow Rate 12/18/22 01:16 12/17/22 20:00 12/18/22 00:00 Temperature 91.2 F L Pulse Rate 51 L 48 L Respiratory Rate Blood Pressure Pulse Oximetry Oxygen Delivery Oxygen Flow Rate 12/18/22 02:48 12/18/22 02:45 12/18/22 03:56 Temperature 91.3 F L 91.3 F L Pulse Rate 49 L Respiratory Rate 18 Blood Pressure 103/50 L Pulse Oximetry 98 Oxygen Delivery Room Air Oxygen Flow Rate 12/18/22 04:00 12/18/22 04:00 12/18/22 04:00 Temperature 91.5 F L 91.5 F L Pulse Rate 48 L 47 L Respiratory Rate 18 Blood Pressure 100/46 L Pulse Oximetry 95 Oxygen Delivery Oxygen Flow Rate 12/18/22 05:00 12/18/22 06:00 12/18/22 06:30 Temperature 93.7 F L 93.9 F L 93.9 F L Pulse Rate Respiratory Rate Blood Pressure Pulse Oximetry Oxygen Delivery Oxygen Flow Rate 12/18/22 06:32 Temperature Pulse Rate 54 L Respiratory Ra
--- NOTE | 2022-12-18 08:44 | PM.IMPN ---
Progress Note: A&P Assessment and Plan (1) Peripheral arterial disease: Code(s): I73.9 - Peripheral vascular disease, unspecified Status: Acute Assessment and Plan: MERLENE completed normal bilateral MERLENE's and right TBI. Left TBI unable to be completed due to wounds. (2) Diabetic wet gangrene of the foot: Code(s): E11.52 - Type 2 diabetes mellitus with diabetic peripheral angiopathy with gangrene Status: Acute Assessment and Plan: Diabetic wet gangrene of foot with L arterial occlusive disease On cefepime, flagyl, vancomycin Hx of MRSA in left leg Per General surgery, Continue broad spectrum IV antibiotics. ABIs pending. Dr. Duong discussed both operative and nonoperative treatment options with the patient in detail. Family and patient will proceed with surgery. Continue antibiotics, local wound care, and will continue to monitor. Need to give a 500 mL NS Bolus for sepsis. pt was never given IVF apparently or have lactic acid checked Blood cx do not appear to have been ordered. Obtain now 12/18. (3) Abnormal urinalysis: Code(s): R82.90 - Unspecified abnormal findings in urine Status: Acute Assessment and Plan: Abnormal UA covered with antibiotics (4) Atrial fibrillation with slow ventricular response: Code(s): I48.91 - Unspecified atrial fibrillation Status: Acute Assessment and Plan: Slow afib with symptomatic bradycardia Consulted Dr. Roberts from Cardiology. Appreciate her consultation atropine given x 1 0.5 mg with resolution of hypotension and improvement of hr from 40 to 62. BP from 90/50 to 118/81 ct pt on med surg with tele hx of atrial fibrillation status post Watchman, CHF, coronary artery disease,? hx of LBBB not on long-term anticoagulation given history of GI bleed.? Status post watchman left atrial appendage closure device insertion. GI bleed- March 2014, November 2017, and more recently suspected occult GI loss in September 2019. (5) DIMITRIS (obstructive sleep apnea): Code(s): G47.33 - Obstructive sleep apnea (adult) (pediatric) Status: Chronic Assessment and Plan: ?Hx of obstructive sleep apnea noncompliant with CPAP CPAP ordered while inpatient. Encourage use as it will help with nocturnal bradycardia (6) End stage renal disease: Code(s): N18.6 - End stage renal disease Status: Chronic Assessment and Plan: ESRD discussed pt with Dr. Piper from Nephrology. He is aware and pt is on the schedule Replete Ca with CaGluc. (7) Cirrhosis: Code(s): K74.60 - Unspecified cirrhosis of liver Status: Chronic Assessment and Plan: EASTON ammonia normal on admission montior liver function (8) Coronary artery 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: Code(s): I25.810 - Atherosclerosis of coronary artery bypass graft(s) without angina pectoris Status: Acute Assessment and Plan: Status post 7 vessel CABG in 2007. No definite infarct or ischemia on nuclear stress test in September 2019. Started on Plavix 1 wk ago for unknown reason Plan S/P code blue with transfer to ICU for bipap and higher level of care. Subjective Date/time seen: 12/18/22 08:44 Interval history: HPI obtained from chart, 72-year-old male with a past history of end-stage renal disease on hemodialysis since 08/2020, atrial fibrillation status post Watchman, CHF, coronary artery disease, COPD, obstructive sleep apnea noncompliant with CPAP, [place] with cirrhosis and diabetes who presented to the ER from [facility] due to increased confusion.? The patient is a dialysis patient receives dialysis Friday.? He evidently refused dialysis today due to his back and leg hurting.? He reports that his entire left foot is extremely painful.? He has been having pain in the foot and signs of infection for a couple of weeks.? In the ER daisha
[2022-12-18] MEDS: PANTOPRAZOLE 40 MG TABLET PO (09:14)
[2022-12-18] MEDS: GABAPENTIN 300 MG CAPSULE PO (09:14)
[2022-12-18] MEDS: ATORVASTATIN 20 MG TABLET PO (09:14)
[2022-12-18] MEDS: ASPIRIN 81 MG ENTERIC TABLET PO (09:15)
[2022-12-18] MEDS: ASCORBIC ACID 500 MG TABLET PO (09:15)
[2022-12-18] MEDS: PENTOXIFYLLINE 400 MG TABCR PO (09:15)
[2022-12-18] MEDS: LACTULOSE 20 GM/30 ML UDC PO (09:15)
[2022-12-18] MEDS: HEPARIN SODIUM 5,000 UNITS/ML VIAL 5000 UNITS SUB-Q (09:15)
[2022-12-18 10:11] LABS: Glucose Point of Care 88 mg/dl (65-105)
[2022-12-18 10:26] LABS: Base Excess ABG -7.3 mEq/l (+/-2.0); Fractional Inspired Oxygen 100 %; HCO3 ABG 19.2 mEq/l (22.0-26.0); Oxygen Content ABG 16.1 %vol (16.0-22.0); Oxygen Saturation ABG 99.2 % (95.0-100.0); Oxyhemoglobin 97.7 % THb (90.0-100.0); PCO2 ABG 42.5 mmHg (35.0-45.0); PO2 ABG 193.5 mmHg (80.0-100.0); PO2 FiO2 Ratio Arterial Blood 1.93 %; Total Hemoglobin 11.4 g/dL (12.0-18.0)
[2022-12-18 10:27] LABS: Device NON-INVASIVE VENT; Modified Allen's Test Pass; Site Drawn LEFT RADIAL; pH ABG 7.273 (7.350-7.450)
[2022-12-18 10:28] LABS: Non-Invasive Vent Rate 15 /MIN
[2022-12-18 10:29] LABS: Non-Invasive Expiratory Pressure 8 CMH2O; Non-Invasive Inspiratory Pressure 15 CMH2O
[2022-12-18] MEDS: NOREPINEPHRINE 8 MG/D5W 250 ML 8 MG/250 ML BAG 9.38 MG IV CONT (10:36)
--- NOTE | 2022-12-18 10:38 | PDCODEBLUE ---
Code Blue Note Code Blue Note Time Arrived at Code Blue: 0955 Initial Rhythm on Arrival: Sinus rhythm Airway Management: Pt being bagged on arrival Chest Compressions: Initiated upon arrival Result of Code Blue: Pt transferred to ICU Cardiac Rhythm Post Code: Sinus rhythm Code Blue Summary: Patient had a rapid response for respiratory distress. I was called to evaluate patient for respiratory failure. When I arrived at bedside patient was being bag ventilated he was poorly responsive. Nurse told me the patient had episode of vomiting earlier. He appears to not have dialyzed for many days. Is scheduled for dialysis today. A cachectic male. Soon on my arrival the nurse reported that she could not feel a pulse and CPR was initiated. 1 mg epinephrine was given. Immediately after 1 round of CPR I was able to feel a good femoral pulse and patient responsive by noding his head. Prepared to intubate patient but pediatric critical care nurse spoke to patient's daughter who stated the patient would not want intubation and wanted patient to be DNR and DNI. Patient was then transferred to ICU. Patient was then placed on BiPAP ABG and blood sugar was obtained.
--- NOTE | 2022-12-18 10:40 | PC.NURSE ---
This patient, Naldo Lowry, was received from [[phone] ] on 12/18/22 at 1030. Patient/family oriented to unit policies and routines
--- NOTE | 2022-12-18 10:41 | WPDCNINT ---
Assessment and Plan Assessment and plan (1) Acute respiratory failure: Code(s): J96.00 - Acute respiratory failure, unspecified whether with hypoxia or hypercapnia Status: Acute (2) Septic shock: Code(s): A41.9 - Sepsis, unspecified organism; R65.21 - Severe sepsis with septic shock Status: Acute (3) Peripheral arterial disease: Code(s): I73.9 - Peripheral vascular disease, unspecified Status: Acute (4) Diabetic wet gangrene of the foot: Code(s): E11.52 - Type 2 diabetes mellitus with diabetic peripheral angiopathy with gangrene Status: Acute (5) COPD (chronic obstructive pulmonary disease): Code(s): J44.9 - Chronic obstructive pulmonary disease, unspecified Status: Acute (6) Cirrhosis: Code(s): K74.60 - Unspecified cirrhosis of liver Status: Chronic (7) Encephalopathy: Code(s): G93.40 - Encephalopathy, unspecified Status: Acute (8) ESRD (end stage renal disease): Code(s): N18.6 - End stage renal disease Status: Chronic (9) Pulmonary edema: Code(s): J81.1 - Chronic pulmonary edema Status: Acute (10) Aspiration pneumonia: Code(s): J69.0 - Pneumonitis due to inhalation of food and vomit Status: Acute Plan Patient was transferred to ICU and placed on BiPAP. Levophed was started for blood pressure support. ABG and blood glucose was checked and reviewed. Labs ordered and drawn. I spoke to patient's daughter by phone and she was on her way to the hospital. Once she arrived I had long meeting with the patient daughter at bedside. We went over patient's status including his [facility] of life at prison he has been for more than 2 years now. Tolerate told me that he has not been eating much and has been slowly getting worse. The infection of the foot has been getting worse. He has had issues with his mental status and overall has lived a very poor quality of life. She is aware the patient has kidney failure heart failure liver disease and peripheral arterial disease. I updated her with patient's current status and events from this morning and told to the patient is in multiorgan failure including acute respiratory failure, septic shock, gangrene of the foot along with his baseline medical problems including congestive heart failure COPD cirrhosis and end-stage renal disease. She told me that she has had discussion regarding this with her brothers and they were aware the patient is gradually deteriorating. She states that their goal is to keep patient comfortable at this time as they know that most of his medical problems are not at the end, curable. She is waiting for other brothers to come to the hospital and once the family is ready they are going to proceed with comfort care. I have explained to her that I will use opioids, anxiolytics and other agents on as needed basis to promote comfort and discontinue all medical therapy, lab testing and invasive monitoring. Patient id when nathalia . She verbalized understanding and agreed to proceed once other family members are here. As of now the plan is to continue BiPAP and Levophed with no further escalation of care. Patient is DNR DNI until then Total Critical Care Time - 100 minutes except separately billed procedures Due to a high probability of clinically significant, life threatening deterioration, the patient required my highest level of preparedness to intervene emergently and I personally spent this critical care time directly and personally managing the patient. This critical care time included obtaining a history; examining the patient; pulse oximetry; ordering and review of studies; arranging urgent treatment with development of a management plan; evaluation of patient's response to treatment; frequent reassessment; and discussions with other providers. It was exclusive of separately billable procedures and treating other patients and teaching ti
[2022-12-18 11:03] LABS: Hematocrit 32.2 % (42.0-52.0); Hemoglobin 10.2 g/dL (14.0-18.0); Mean Corpuscular HGB Conc 31.7 g/dl (32-36); Mean Corpuscular Hemoglobin 30.6 pg (26-34); Mean Corpuscular Volume 96.7 fl (80-100); Mean Platelet Volume 9.8 fl (7.4-10.4); Platelet Count Result 126 k/mm3 (150-375); Red Blood Count 3.33 M/mm3 (4.6-6.20); Red Cell Distribution Width 15.9 % (11.5-14.5); White Blood Count 19.7 K/mm3 (4.5-10.0)
[2022-12-18 11:09] LABS: Alanine Aminotransferase 18 U/L (6-50); Albumin Level 2.7 g/dL (3.5-5.1); Alkaline Phosphatase 190 U/L (38-126); Anion Gap 14 mmol/L (8-16); Aspartate Amino Transferase 25 U/L (17-59); Bilirubin,Total 1.5 mg/dL (0.2-1.3); Blood Urea Nitrogen 58 mg/dL (9-20); Calcium 7.7 mg/dL (8.4-10.2); Carbon Dioxide 19 mmol/L (22-30); Chloride 95 mmol/L (98-107); Estimated CRCL calculation 13 ml/min; Estimated Glomerular Filt Rate 13; Glucose 67 mg/dL (65-110); Lactic Acid Reflex 3.1 mmol/L (0.7-2.0); Magnesium 1.8 mg/dL (1.6-2.3); Potassium 4.8 mmol/L (3.4-5.0); Sodium 128 mmol/L (137-145)
--- NOTE | 2022-12-18 12:05 | PM.PNNEP ---
Progress Note: A&P Assessment and Plan (1) End stage renal disease: Code(s): N18.6 - End stage renal disease Status: Chronic (2) Gangrene of left foot: Code(s): I96 - Gangrene, not elsewhere classified Status: Acute (3) Chronic diastolic congestive heart failure: Code(s): I50.32 - Chronic diastolic (congestive) heart failure Status: Chronic (4) DIMITRIS (obstructive sleep apnea): Code(s): G47.33 - Obstructive sleep apnea (adult) (pediatric) Status: Chronic (5) Anemia: Code(s): D64.9 - Anemia, unspecified Status: Chronic Plan Noted plans for withdrawal of care as outlined by Dr. Cintron. No further dialytic support to be done as per family wishes -- will follow from a distance. Subjective Date/time seen: 12/18/22 12:05 Interval history: Follow-up for end stage renal disease on hemodialysis. Kelli noted overnight and earlier this AM -- issues with hypothermia overnight requiring venkatesh hugger; code blue called for respiratory distress -- required bagging by mask and subsequently lost pulse and ACLS protocol intiated with ROSC; was not intubated due to DNR/DNI code status so moved to ICU for BiPAP support; results of Dr. Cintron's discussion with patient's daughter noted -- no further escalation of care and likely to move to comfort care measures once further family arrives. Exam Narrative: General: ill-appearing male on BiPAP support Heart: normal S1 and S2; no rub Lungs: coarse breath sounds Abdomen: soft, nontender, nondistended, positive bowel sounds Extremities: no cyanosis or clubbing; 1+ edema (chronic) Skin: left foot gangrene with tenderness to touch Objective Data Vital Signs Vital Signs: Vital Signs Temp Pulse Resp BP Pulse Ox O2 Del Method O2 Flow Rate 12/18/22 12:00 98.3 F 67 22 H 114/65 100 12/18/22 12:00 100 BiPAP 2 12/18/22 12:00 68 12/18/22 11:06 100 BiPAP 12/18/22 11:02 85/46 L 12/18/22 10:43 72 7 L 55 L Non-Rebreather Mask 12/18/22 10:00 97.6 F 12/18/22 09:00 97.1 F L 12/18/22 08:30 96.7 F L 12/18/22 08:00 97 High Flow Nasal Cannula 2 12/18/22 08:00 96.7 F L 12/18/22 10:55 78/49 L 12/18/22 10:36 64/42 L 12/18/22 10:10 103 H 24 H 100 BiPAP 12/18/22 08:55 95 Room Air 12/18/22 08:00 96.7 F L 96 22 H 101/82 95 12/18/22 06:32 54 L 12/18/22 06:30 93.9 F L 12/18/22 06:00 93.9 F L 12/18/22 05:00 93.7 F L 12/18/22 04:00 91.5 F L 12/18/22 04:00 91.5 F L 47 L 18 100/46 L 95 12/18/22 04:00 48 L 12/18/22 03:56 Room Air 12/18/22 02:45 91.3 F L 12/18/22 02:48 91.3 F L 49 L 18 103/50 L 98 12/18/22 00:00 48 L 12/17/22 20:00 51 L 12/18/22 01:16 91.2 F L 12/17/22 22:00 95.2 F L 46 L 18 111/58 L 100 12/17/22 16:00 60 12/17/22 17:03 96 Room Air Intake/Output Intake/Output: Intake & Output 12/15/22 12/16/22 12/17/22 12/18/22 23:59 23:59 23:59 23:59 Intake Total 2049 181 100 Output Total 15 100 Balance 2034 1809 0 Meds/Results Medications: Active Medications Generic Name Dose Route Start Last Admin Trade Name Freq PRN Reason Stop Dose Admin Atropine Sulfate 1 - 2 drop 12/18/22 14:10 Atropine Sulfate 1% Ophth Soln 5 Ml Bottle SUBLINGUAL Q4H PRN Secretions Lorazepam 2 mg 12/18/22 14:10 Lorazepam Inj (*Crx) 2 Mg/Ml Vial IV PUSH Q1H PRN Anxiety/Comfort Morphine Sulfate 4 mg 12/18/22 14:10 Morphine Sulfate (*Crx) 2 Mg/Ml Inj IV PUSH Q30M PRN COMFORT Radiology Results: ITS Impressions Head CT 12/16/22 17:07 IMPRESSION: No acute intracranial process. Foot X-Ray 12/16/22 19:42 IMPRESSION: Possible erosions at the right second metatarsal head and proximal aspect of the right second proximal pha
--- NOTE | 2022-12-18 13:23 | PM.PNGS ---
Progress Note: A&P Assessment and Plan (1) Septic shock: Code(s): A41.9 - Sepsis, unspecified organism; R65.21 - Severe sepsis with septic shock Status: Acute Assessment and Plan: acute cardiac event, transferred to ICU, cont IV abx, pt to be made DNR/CC per family (2) Diabetic wet gangrene of the foot: Code(s): E11.52 - Type 2 diabetes mellitus with diabetic peripheral angiopathy with gangrene Status: Acute Assessment and Plan: see above, will s/o, call c ?s, issues Subjective Subjective Date/Time Seen: 12/18/22 13:23 Interval history: events noted, pt transferred to ICU after cardiac arrest Review of Systems Review of Systems: ROS unobtainable: Yes unobtainable due to medical condition and unobtainable due to mental status Exam Const: General: ill appearing Resp: Auscultation: diminished lung sounds Cardio: Rate: regular rate Rhythm: regular rhythm GI: Inspection: normal to inspection Extrem: Other: L foot - drsg C/D/I Objective Data Vital Signs Vital Signs: Vital Signs - 24 hr 12/17/22 14:00 12/17/22 17:03 12/17/22 16:00 Temperature 36.6 C Pulse Rate 64 60 Respiratory Rate 16 Blood Pressure 113/52 L Pulse Oximetry 98 96 Oxygen Delivery Room Air Oxygen Flow Rate Fraction of Inspired Oxygen 12/17/22 22:00 12/18/22 01:16 12/17/22 20:00 Temperature 35.1 C L 32.9 C L Pulse Rate 46 L 51 L Respiratory Rate 18 Blood Pressure 111/58 L Pulse Oximetry 100 Oxygen Delivery Oxygen Flow Rate Fraction of Inspired Oxygen 12/18/22 00:00 12/18/22 02:48 12/18/22 02:45 Temperature 32.9 C L 32.9 C L Pulse Rate 48 L 49 L Respiratory Rate 18 Blood Pressure 103/50 L Pulse Oximetry 98 Oxygen Delivery Oxygen Flow Rate Fraction of Inspired Oxygen 12/18/22 03:56 12/18/22 04:00 12/18/22 04:00 Temperature 33.1 C L Pulse Rate 48 L 47 L Respiratory Rate 18 Blood Pressure 100/46 L Pulse Oximetry 95 Oxygen Delivery Room Air Oxygen Flow Rate Fraction of Inspired Oxygen 12/18/22 04:00 12/18/22 05:00 12/18/22 06:00 Temperature 33.1 C L 34.3 C L 34.4 C L Pulse Rate Respiratory Rate Blood Pressure Pulse Oximetry Oxygen Delivery Oxygen Flow Rate Fraction of Inspired Oxygen 12/18/22 06:30 12/18/22 06:32 12/18/22 08:00 Temperature 34.4 C L 35.9 C L Pulse Rate 54 L 96 Respiratory Rate 22 H Blood Pressure 101/82 Pulse Oximetry 95 Oxygen Delivery Oxygen Flow Rate Fraction of Inspired Oxygen 12/18/22 08:55 12/18/22 10:10 12/18/22 10:36 Temperature Pulse Rate 103 H Respiratory Rate 24 H Blood Pressure 64/42 L Pulse Oximetry 95 100 Oxygen Delivery Room Air BiPAP Oxygen Flow Rate Fraction of Inspired Oxygen 12/18/22 10:55 12/18/22 08:00 12/18/22 08:00 Temperature 35.9 C L Pulse Rate Respiratory Rate Blood Pressure 78/49 L Pulse Oximetry 97 Oxygen Delivery High Flow Nasal Cannula Oxygen Flow Rate 2 Fraction of Inspired Oxygen 12/18/22 08:30 12/18/22 09:00 12/18/22 10:00 Temperature 35.9 C L 36.2 C L 36.4 C Pulse Rate Respiratory Rate Blood Pressure Pulse Oximetry Oxygen Delivery Oxygen Flow Rate Fraction of Inspired Oxygen 12/18/22 10:43 12/18/22 11:02 12/18/22 11:06 Temperature Pulse Rate 72 Respiratory Rate 7 L Blood Pressure 85/46 L Pulse Oximetry 55 L 100 Oxygen Delivery Non-Rebreather Mask BiPAP Oxygen Flow Rate Fraction of Inspired Oxygen 60 12/18/22 12:00 12/18/22 12:00 12/18/22 12:00 Temperature 36.8 C Pulse Rate 68 67 Respiratory Rate 22 H Blood Pressure 114/65 Pulse Oximetry 100 100 Oxygen Delivery BiPAP Oxygen Flow Rate 2 Fraction of Inspired Oxygen Intake/Output Intake/Output: Intake & Output 12/15/22 12/16/22 12/17/22 12/18/22 23:59 23:59 23:59 23:59 Intake Total 2049 1810 100 Output Tot
[2022-12-18 13:55] LABS: Reflex Lactic Acid Yes or No Add Lactic
[2022-12-18] MEDS: LORazepam INJ (*CRX) 2 MG/ML VIAL IV PUSH (15:56)
[2022-12-18] MEDS: MORPHINE SULFATE INJ (*CRX) 10 MG/ML AMP 5 MG IV PUSH (15:56)
--- NOTE | 2022-12-19 16:08 | PM.DDS ---
Discharge Summary Date and Time Date of : 12/18/22 Time of : 16:40 Provider Pronounced By: ADI Wolf RN Probable Cause of Probable Cause of : Sepsis with multi-organ failure Summary Hospital Course: HPI obtained from chart, 72-year-old male with a past history of end-stage renal disease on hemodialysis since 08/2020, atrial fibrillation status post Watchman, CHF, coronary artery disease, COPD, obstructive sleep apnea noncompliant with CPAP, [place] with cirrhosis and diabetes who presented to the ER from [facility] due to increased confusion.? The patient is a dialysis patient receives dialysis Friday.? He evidently refused dialysis today due to his back and leg hurting.? He reports that his entire left foot is extremely painful.? He has been having pain in the foot and signs of infection for a couple of weeks.? In the ER found to be intermittently mildly bradycardic and afebrile.? The daughter was with the patient when he came to the ER.? She stated that he usually gets slightly confused when his ammonia is high.? His ammonia level in the ER was normal.? He had no complaints in the ER except for feeling hungry.? Labs in the ER demonstrated leukocytosis.? On exam patient had noted gangrenous right foot wound.? He is extremely slow to respond and cannot provide any significant medical history.? He is oriented to the name of the hospital, year and name of the current president.? He thought the month was September.? He does report that his entire left foot hurts.? On exam the patient had obviously gangrenous 2nd toe the left foot.? He has been afebrile since presentation.? Nursing staff tells me that the alf recently place patient on Plavix 75 mg daily for the last week or so.? Arterial or Dopplers in the ER reportedly normal. 10-4 @ 0945 rapid response was called and I responded to the room. Patient was unresponsive and having agonal breathing with weak pulse. RT started bagging patient and I requested ICU auto parts handler be called for intubation. Shortly after patient lost a pulse and CPR was initiated. Patient received 1 round of epinephrine and a femoral pulse was palpable. We prepared for intubation but care coordination spoke with the patient's daughter who did not want him to be intubated. Patient was transferred to the ICU in care of Dr Cintron and placed on BiPAP until family could arrive and make further decisions regarding care. Additional Data Confirmation of as documented by pronouncing clinician: Pupillary Reflex, Palpable Pulses, Response to Stimuli, Heart Tones and Breath Sounds Name of Provider Notified: HERIBERTO Craft Dr. Time Provider Notified: 16:53 Provider Requests Autopsy: No Family Requests Autopsy: No Printing Assistant Notified: Yes Date [facility] Notified of : 12/18/22 Time [facility] Notified of : 17:00
== END 2022-12-18 16:40 | disposition expired | DRG 871 ==
LOC: ANHED 14:58 → ANH3MEDSUR 22:13 → ANHICU 12-18 13:41 → ANH3MEDSUR 12-19 11:54 → ANHICU 12-19 11:54 → ANHIMU 12-19 11:54
PROVIDERS: Internal Medicine; Internal Medicine Nephrology; Admitting Provider Internal Medicine; Emergency Provider Emergency Medicine; PCP Internal Medicine; Visit Provider Nurse Practitioner Acute Care
DX: A41.9 Sepsis, unspecified organism (principal); G93.41 Metabolic encephalopathy; R65.21 Severe sepsis with septic shock; J69.0 Pneumonitis due to inhalation of food and vomit; N18.6 End stage renal disease; J96.01 Acute respiratory failure with hypoxia; E11.52 Type 2 diabetes mellitus with diabetic peripheral angiopathy with gangrene; I50.32 Chronic diastolic (congestive) heart failure; I96 Gangrene, not elsewhere classified; R64 Cachexia; I13.2 Hypertensive heart and chronic kidney disease with heart failure and with stage 5 chronic kidney disease, or end stage renal disease; R18.8 Other ascites; I46.9 Cardiac arrest, cause unspecified; I25.10 Atherosclerotic heart disease of native coronary artery without angina pectoris; J44.9 Chronic obstructive pulmonary disease, unspecified; E11.621 Type 2 diabetes mellitus with foot ulcer; L97.519 Non-pressure chronic ulcer of other part of right foot with unspecified severity; I48.0 Paroxysmal atrial fibrillation; G47.33 Obstructive sleep apnea (adult) (pediatric); N25.0 Renal osteodystrophy; D63.1 Anemia in chronic kidney disease; K75.81 Nonalcoholic steatohepatitis (NASH); S80.11XA Contusion of right lower leg, initial encounter; K74.60 Unspecified cirrhosis of liver; E11.22 Type 2 diabetes mellitus with diabetic chronic kidney disease; E78.5 Hyperlipidemia, unspecified; K21.9 Gastro-esophageal reflux disease without esophagitis; Z66 Do not resuscitate; Z91.199 Patient's noncompliance with other medical treatment and regimen due to unspecified reason; Z99.2 Dependence on renal dialysis; Z79.82 Long term (current) use of aspirin; Z95.1 Presence of aortocoronary bypass graft; Z98.49 Cataract extraction status, unspecified eye; Z96.1 Presence of intraocular lens; R68.0 Hypothermia, not associated with low environmental temperature; Z87.891 Personal history of nicotine dependence; Z68.21 Body mass index [BMI] 21.0-21.9, adult; Z79.02 Long term (current) use of antithrombotics/antiplatelets; X58.XXXA Exposure to other specified factors, initial encounter; M85.80 Other specified disorders of bone density and structure, unspecified site; D72.829 Elevated white blood cell count, unspecified; R00.1 Bradycardia, unspecified
CPT/HCPCS: 36415; 36600; 70450; 71045; 73620; 73706; 80048; 80053; 80069; 80202; 81001; 82140; 82565; 82805; 82948; 83605; 83735; 85025; 85027; 85055; 85610; 85730; 86706; 87040; 87086; 87340; 93005; 93922; 94002; 94660; 96361; 96365; 96366; 96367; 96372; 96375; 99285; A9270; G0378; J0171; J0461; J0612; J0692; J1170; J1644; J1836; J2060; J2270; J3370; J7030; J7040; Q9967